=== PATIENT | male | born 1945 | race Hispanic/Latino ===

== ENCOUNTER 2016-08-28 01:46 | Inpatient (IN) | payer OTHER, MEDICAID ==
[2016-08-28] MEDS ORDERED: Piperacillin/Tazobact 3.375 gm 100 ML IV STA (03:17)
[2016-08-28] MEDS ORDERED: Morphine 4 MG/ML VIAL IV ONE (03:19)
--- NOTE | 2016-08-28 03:20 | C.PDOC ---
History Of Present Illness 71 year old patient presents to the ED complaining of a chronic ulcer to the right ankle for the past few years. Patient now complains of pain, foul odor and drainage to the area. He denies fever. He did not follow up with his PMD. ( Kierra Reyes) History Per: Patient History/Exam Limitations: no limitations Onset/Duration Of Symptoms: Other (few years) Current Symptoms Are (Timing): Still Present Quality Of Symptoms: Painful, Draining Severity: Mild Pain Scale Rating Of: 3 Recent travel outside of the [place]: No Time Seen by Provider: 08/28/16 03:10 Chief Complaint (Nursing): Abnormal Skin Integrity Past Medical History Reviewed: Historical Data, Nursing Documentation, Vital Signs - Medical History PMH: HTN, Hypercholesterolemia Surgical History: Coronary Stent Family History: States: Unknown Family Hx - Social History Hx Tobacco Use: Yes Hx Alcohol Use: No (former) Hx Substance Use: No - Immunization History Hx Tetanus Toxoid Vaccination: No Hx Influenza Vaccination: No Hx Pneumococcal Vaccination: No Vital Signs: Last Vital Signs Temp 97.6 F 08/28/16 01:56 Pulse 84 08/28/16 04:30 Resp 14 08/28/16 04:30 BP 120/70 08/28/16 04:30 Pulse Ox 97 08/28/16 05:21 - [facility] Procedures CENTRAL VENOUS CATHETER PLACEMENT WITH GUIDANCE (10/04/14) CORONAR ARTERIOGR-2 CATH (05/28/12) INSERTION OF ONE VASCULAR STENT (08/05/12) INSERTION OF TWO VASCULAR STENTS (05/28/12) INSRT OF DRUG-ELUTING CORON ARTERY STENTS(S) (08/05/12) LEFT HEART CARDIAC CATH (05/28/12) PERCUTANEOUS TRANSLUMINAL CORONARY ANGIOPLASTY [PTCA] (08/05/12) PROCEDURE ON SINGLE VESSEL (08/05/12) PROCEDURE ON TWO VESSELS (05/28/12) Review Of Systems Except As Marked, All Systems Reviewed And Found Negative. Constitutional: Negative for: Fever Skin: Positive for: Other (ulcer to the right ankle) Physical Exam - Physical Exam Appears: Non-toxic, No Acute Distress Skin: Warm, Dry Head: Atraumatic, Normacephalic Eye(s): bilateral: PERRL, EOMI Chest: Symmetrical Cardiovascular: Rhythm Regular Respiratory: Normal Breath Sounds, No Rales, No Rhonchi, No Wheezing Extremity: Normal ROM, No Pedal Edema, No Calf Tenderness, Capillary Refill (<2 seconds), No Deformity, Other (large, infected, purulent ulcer to the right medial malleolus with foul odor; pedal pulse diminished on the right (+)mild erythema to the distal and proximal aspects of the wound (+)warmth) Neurological/Psych: Oriented x3, Normal Motor, Normal Sensation ED Course And Treatment - Laboratory Results Result Diagrams: 08/28/16 03:41 08/28/16 03:41 O2 Sat by Pulse Oximetry: 97 (RA) Pulse Ox Interpretation: Normal - Other Rad Right ankle XR X-Ray: Interpreted by Me, Viewed By Me Interpretation: No Osteomyelitis Progress Note: Plan: -Labs. -Morphine, Vancomycin, Zosyn. -Wound culture. - Right ankle x-ray. -Reassess and disposition Disposition - Disposition Disposition Time: 05:00 - Disposition Disposition: HOSPITALIZED Condition: STABLE - Clinical Impression Clinical Impression: Infected ulcer of skin, Diabetes mellitus with ulcer of ankle, Anemia - PA / [employer] / Resident Statement MD/DO has reviewed & agrees with the documentation as recorded. - Scribe Statement The provider has reviewed the documentation as recorded by the Scribe - Scribe Statement Mehnaz Ramírez All medical record entries made by the Scribe were at my direction and personally dictated by me. I have reviewed the chart and agree that the record accurately reflects my personal performance of the history, physical exam, medical decision making, and the department course for this patient. I have also personally directed, reviewed, and agree with the discharge instructions and disposition. (Kierra Reyes)
[2016-08-28 03:44] LABS: BASO % 0.3 % (0.0-2.0); EOS % 0.7 % (0.0-4.0); HEMATOCRIT 23.5 % (35.0-51.0); LYMPH # 1.4 K/uL (1.0-4.3); LYMPH % 26.4 % (20.0-40.0); MEAN CELL VOLUME 73.4 fL (80.0-94.0); MEAN CORPUSCULAR HEMOGLOBIN 23.9 pg (27.0-31.0); MEAN CORPUSCULAR HGB CONC 32.6 g/dL (33.0-37.0); MEAN PLATELET VOLUME 8.9 fL (7.2-11.7); MONO # 0.9 K/uL (0.0-0.8); MONO % 16.6 % (0.0-10.0); WHITE BLOOD COUNT 5.2 K/uL (4.8-10.8)
[2016-08-28 03:54] LABS: CHLORIDE 99 mmol/L (98-107)
[2016-08-28 03:55] LABS: POTASSIUM 4.5 mmol/L (3.6-5.2); SODIUM 135 mmol/L (132-148)
[2016-08-28 03:57] LABS: GFR AFRICAN-AMERICAN > 60
[2016-08-28 03:58] LABS: ALB/GLOB RATIO 0.8 (1.0-2.1); ALKALINE PHOSPHATASE 120 U/L (38-126); ALT/SGPT 19 U/L (21-72); AST/SGOT 15 U/L (17-59); BILIRUBIN,TOTAL 0.3 mg/dL (0.2-1.3); BLOOD UREA NITROGEN 16 mg/dL (9-20); CALCIUM 9.3 mg/dl (8.6-10.4); CARBON DIOXIDE 21 mmol/L (22-30); TOTAL PROTEIN 7.3 g/dL (6.3-8.3)
[2016-08-28 04:12] LABS: GLUCOSE,RANDOM 414 mg/dL (75-110)
[2016-08-28] MEDS ORDERED: (Novolin R) Insulin Human Regular 100 units/ml vial IV STA (04:17)
[2016-08-28] MEDS ORDERED: Sodium Chloride 0.9% 1,000 ML IV STA ×2 (04:18→08:05)
[2016-08-28] MEDS ORDERED: (Novolin R) Insulin Human Regular 100 units/ml vial ONE (04:24)
--- NOTE | 2016-08-28 10:00 | RAD ---
PROCEDURE: Right Ankle Radiographs. HISTORY: infected wound COMPARISON: 10/05/2014 and bilateral ankle study FINDINGS: BONES: There is interval increased osseous hypertrophic changes at the tibiotalar articulation on the lateral view and an oblique lucency with faint sclerotic margins projecting over the distal fibula ; this is not significantly changed since the prior exa. A remote nondisplaced incomplete fracture here with incomplete healing here is 1 consideration. Projectional artifact is another. The smooth medial distal tibial metaphyseal to epiphyseal re- osteal reaction is similar to the prior exam is findings are subjacent to a large soft tissue ulcer now. A soft tissue ulceration appears more extensive than previously. Chronic venous insufficiency (given the bilaterality) and smooth margins is 1 consideration. A element of chronic sub periosteal osteo is not excluded there is faint ill definition to some of this inferior smooth periosteal reaction/cortex on the current study regional local osteomyelitis here cannot be excluded. The inferior and posterior calcaneal spurs are as before JOINTS: Mild osteoarthritis. Ankle mortise maintained. Talar dome intact SOFT TISSUES: Soft tissue ulceration OTHER FINDINGS: None. IMPRESSION: Medial ankle ulcer - the ulcer appears more extensive. The prior smooth medial distal tibial periosteal reaction (which is noted bilaterally) and consistent part with chronic venous insufficiency does appear more focally demineralized contiguous with this ulcer . A contiguous right osteomyelitis as a result is a consideration and cannot be exclude .Consider MRI for further evaluation
--- NOTE | 2016-08-28 11:10 | CP.PCM.CON ---
History of Present Illness - History of Present Illness History of Present Illness: 71 year old patient presents to the ED complaining of a chronic ulcer to the right ankle for the past few years. Patient now complains of pain, foul odor and drainage to the area. He denies fever. Past Patient History - Tetanus Immunizations Tetanus Immunization: Unknown - Past Social History Smoking Status: Heavy Smoker > 10 Cigarettes Daily - CARDIAC Hx Hypercholesterolemia: Yes Hx Hypertension: Yes - PULMONARY Hx Respiratory Disorders: No - NEUROLOGICAL Hx Paralysis: No - HEENT Hx HEENT Problems: No - RENAL Hx Chronic Kidney Disease: No - ENDOCRINE/METABOLIC Hx Endocrine Disorders: No - HEMATOLOGICAL/ONCOLOGICAL Hx Blood Transfusions: No Hx Blood Transfusion Reaction: No - INTEGUMENTARY Hx Dermatological Problems: Yes Hx Cellulitis: Yes - MUSCULOSKELETAL/RHEUMATOLOGICAL Hx Musculoskeletal Disorders: No Hx Falls: No - GASTROINTESTINAL Hx Gastrointestinal Disorders: No - GENITOURINARY/GYNECOLOGICAL Hx Genitourinary Disorders: No - PSYCHIATRIC Hx Substance Use: No - SURGICAL HISTORY Hx Coronary Stent: Yes - ANESTHESIA Hx Anesthesia Reactions: No Hx Malignant Hyperthermia: No Meds Allergies/Adverse Reactions: Allergies Allergy/AdvReac Type Severity Reaction Status Date / Time No Known Allergies Allergy Unverified 05/03/15 14:16 - Medications Medications: Current Medications Sodium Chloride (Sodium Chloride 0.9%) 1,000 mls @ 80 mls/hr IV .[id number] STA Stop: 08/28/16 16:47 Last Admin: 08/28/16 09:43 Dose: 80 mls/hr Insulin Human Regular (Novolin R) 0 unit SC ACHS [facility] PRN Reason: Protocol Results - Vital Signs Recent Vital Signs: Last Vital Signs Temp 97.6 F 08/28/16 01:56 Pulse 84 08/28/16 04:30 Resp 14 08/28/16 04:30 BP 120/70 08/28/16 04:30 Pulse Ox 97 08/28/16 06:47 - Labs Result Diagrams: 08/28/16 03:41 08/28/16 03:41 Labs: Laboratory Results - last 24 hr 08/28/16 08/28/16 05:57 06:41 POC Glucose (mg/dL) 259 H Blood Type A POSITIVE Antibody Screen Negative
--- NOTE | 2016-08-28 11:12 | CP.PCM.HP ---
History of Present Illness - History of Present Illness History of Present Illness: 71-year-old patient presented to the ED complaining of a chronic ulcer to the right ankle for the past few years. Patient now complains of pain, foul odor and drainage to the area. He denies fever. He did not follow-up with his primary physician. Present on Admission - Present on Admission Any Indicators Present on Admission: No Past Patient History - Tetanus Immunizations Tetanus Immunization: Unknown - Past Social History Smoking Status: Heavy Smoker > 10 Cigarettes Daily - CARDIAC Hx Hypercholesterolemia: Yes Hx Hypertension: Yes - PULMONARY Hx Respiratory Disorders: No - NEUROLOGICAL Hx Paralysis: No - HEENT Hx HEENT Problems: No - RENAL Hx Chronic Kidney Disease: No - ENDOCRINE/METABOLIC Hx Endocrine Disorders: No - HEMATOLOGICAL/ONCOLOGICAL Hx Blood Transfusions: No Hx Blood Transfusion Reaction: No - INTEGUMENTARY Hx Dermatological Problems: Yes Hx Cellulitis: Yes - MUSCULOSKELETAL/RHEUMATOLOGICAL Hx Musculoskeletal Disorders: No Hx Falls: No - GASTROINTESTINAL Hx Gastrointestinal Disorders: No - GENITOURINARY/GYNECOLOGICAL Hx Genitourinary Disorders: No - PSYCHIATRIC Hx Substance Use: No - SURGICAL HISTORY Hx Coronary Stent: Yes - ANESTHESIA Hx Anesthesia Reactions: No Hx Malignant Hyperthermia: No Meds Home Medications: Home Medication List Medication Instructions Recorded Confirmed Type Thiamine [Vitamin B1 Tab] 100 mg PO DAILY tab 09/12/16 Rx Allergies/Adverse Reactions: Allergies Allergy/AdvReac Type Severity Reaction Status Date / Time No Known Allergies Allergy Verified 09/16/16 20:22 Physical Exam - Constitutional Appears: Well - Head Exam Head Exam: ATRAUMATIC, NORMAL INSPECTION, NORMOCEPHALIC - Eye Exam Eye Exam: EOMI, Normal appearance, PERRL Pupil Exam: NORMAL ACCOMODATION, PERRL - ENT Exam ENT Exam: Mucous Membranes Moist, Normal Exam - Neck Exam Neck exam: Positive for: Normal Inspection - Respiratory Exam Respiratory Exam: Decreased Breath Sounds - Cardiovascular Exam Cardiovascular Exam: REGULAR RHYTHM, +S1, +S2 - GI/Abdominal Exam GI & Abdominal Exam: Diminished Bowel Sounds, Soft - Rectal Exam Rectal Exam: Deferred Results - Vital Signs Recent Vital Signs: Last Vital Signs Temp 97.6 F 08/28/16 01:56 Pulse 84 08/28/16 04:30 Resp 14 08/28/16 04:30 BP 120/70 08/28/16 04:30 Pulse Ox 97 08/28/16 06:47 - Labs Result Diagrams: 09/13/16 07:15 09/13/16 07:15 Labs: Laboratory Results - last 24 hr 08/28/16 08/28/16 05:57 06:41 POC Glucose (mg/dL) 259 H Blood Type A POSITIVE Antibody Screen Negative Assessment & Plan (1) Anemia Status: Acute (2) Chest pain Status: Acute (3) Diabetes mellitus with ulcer of ankle Status: Acute (4) Diabetes mellitus, new onset Status: Acute (5) Gastrointestinal hemorrhage Status: Acute (6) Infected ulcer of skin Status: Acute (7) PAD (peripheral artery disease) Status: Acute (8) Pancytopenia Status: Acute (9) Pneumonia Status: Acute (10) Prophylactic measure Status: Acute (11) CAD (coronary artery disease) Status: Chronic (12) Diabetes mellitus Status: Chronic - Assessment and Plan (Free Text) Plan: Consult ID Consult cardiology Consult cardiology S/P to [facility] Wound care Recommend MRI IV fluids Pipercillin sod/tazobactam
[2016-08-28] MEDS ORDERED: (Novolin R) Insulin Human Regular 100 units/ml vial SC SCH (11:30)
[2016-08-28 11:32] LABS: BASO % 0.4 % (0.0-2.0); EOS % 1.3 % (0.0-4.0); HEMATOCRIT 20.1 % (35.0-51.0); LYMPH # 0.8 K/uL (1.0-4.3); LYMPH % 21.1 % (20.0-40.0); MEAN CELL VOLUME 73.1 fL (80.0-94.0); MEAN CORPUSCULAR HEMOGLOBIN 24.5 pg (27.0-31.0); MEAN CORPUSCULAR HGB CONC 33.4 g/dL (33.0-37.0); MONO # 0.8 K/uL (0.0-0.8); MONO % 20.8 % (0.0-10.0); NRBC % 0.1 % (0.0-2.0); PLATELET COUNT 134 K/uL (130-400); RED CELL DISTRIBUTION WIDTH 19.9 % (11.5-14.5); WHITE BLOOD COUNT 3.9 K/uL (4.8-10.8)
[2016-08-28 11:58] LABS: NEUTROPHIL 56 % (50-75); TOTAL CELLS COUNTED 100
[2016-08-28] MEDS: Piperacillin/Tazobact 3.375 GM in Sodium Chloride 100 ML IVPB SCH ×2 (13:45→18:52)
[2016-08-28 14:16] LABS: IRON 28 ug/dL (49-181)
--- NOTE | 2016-08-28 14:26 | CP.PCM.PN ---
Subjective - Date & Time of Evaluation Date of Evaluation: 08/28/16 Time of Evaluation: 08:45 - Subjective Subjective: Medicine Progress Note- Dr. Ramírez's service: 71 year old male with PMHx of diabetes, large infected foot ulcer, CAD s/p PCI with stents admitted overnight for purulent non healing foot ulcer. Patient seen and examined at bedside this AM. Patient reports he is tired. He had one episode of chest pain this AM that only lasted for a few minutes. He reports last time he had chest pain like this was years ago. Patient with history of [place] 3 years ago. Patient denies SOB, fevers, chills, numbness, tingling, palpitations, headaches, dizziness. Objective - Vital Signs/Intake and Output Vital Signs (last 24 hours): Temp Pulse Resp BP Pulse Ox 97.6 F 84 14 120/70 97 08/28/16 01:56 08/28/16 04:30 08/28/16 04:30 08/28/16 04:30 08/28/16 06:47 - Medications Medications: Current Medications Sodium Chloride (Sodium Chloride 0.9%) 1,000 mls @ 80 mls/hr IV .[id number] STA Stop: 08/28/16 16:47 Last Admin: 08/28/16 09:43 Dose: 80 mls/hr Piperacillin Sod/Tazobactam (Sod 3.375 gm/ Sodium Chloride) 100 mls @ 200 mls/ hr IVPB Q6H [facility] Last Admin: 08/28/16 13:45 Dose: 200 mls/hr Insulin Human Regular (Novolin R) 0 unit SC ACHS [facility] PRN Reason: Protocol Last Admin: 08/28/16 13:25 Dose: 8 unit - Labs Labs: 08/28/16 11:22 - Constitutional Appears: No Acute Distress, Cachectic, Chronically Ill - Head Exam Head Exam: NORMAL INSPECTION, NORMOCEPHALIC - Eye Exam Eye Exam: EOMI, Normal appearance - ENT Exam ENT Exam: Mucous Membranes Moist - Neck Exam Neck Exam: Full ROM, Normal Inspection - Respiratory Exam Respiratory Exam: Clear to Ausculation Bilateral, NORMAL BREATHING PATTERN - Cardiovascular Exam Cardiovascular Exam: REGULAR RHYTHM, +S1, +S2 - GI/Abdominal Exam GI & Abdominal Exam: Soft, Normal Bowel Sounds. absent: Distended, Tenderness - Extremities Exam Extremities Exam: absent: Pedal Edema Additional comments: Large purulent 3-4 inch diameter ulcer over the right medial malleolus with foul odor, green/tyler discharge. - Neurological Exam Neurological Exam: Alert, Awake, Oriented x3 - Psychiatric Exam Psychiatric exam: Normal Affect, Normal Mood - Skin Skin Exam: Dry, Pallor, Warm Assessment and Plan (1) Anemia Assessment & Plan: Hgb down from 7.7 this AM to 6.7 this afternoon. Microcytic. Patient is pale and symptomatic. Will transfuse 2 units of PRBC Monitor on Tele f/u CBC in the AM f/u FOBT f/u Iron studies GI consult placed- Dr. Mosqueda- help appreciated. * As per GI. Patient to have EGD/colonoscopy for further evaluation of worsening iron deficiency anemia, particularly given heavy cigarette smoking history in order to rule out underlying malignancy. Will tentatively plan for . * Patient started on Iron supplementation as recommended by GI. Ferrlecit 125 mg IVPB daily. Status: Acute (2) Chest pain Assessment & Plan: HEATH: 0.0210 this AM EKG NSR [address] changes. f/u HEATH in 6 hours Cardio consult placed- Dr. Apple- help appreciated. Hold Plavix, ASA for possible blood loss. Continue statin. Status: Acute (3) Infected ulcer of skin Assessment & Plan: ID consult placed- Dr. Bishop- help appreciated. Zosyn IVPB NSS at 80 cc/hr Discussed with wound care. certified welder Ugo to see patient and make recommendations. Status: Acute (4) CAD (coronary artery disease) Assessment & Plan: Pt has had two coronary stents placed at [facility] in 2012. Pt says that he had an [place] at that time. Patient placed on Plavix, ASA and Statin last admission in 2014. Hold Plavix, ASA for possible blood loss. Continue statin Status: Acute (5) Diabetes mellitus Assessment & Plan: Hgb A1C 10.0 Insulin Sliding Scale Start Lantus 10 units HS Status: Acute (6) PAD (peripheral artery disease) Assessment & Plan: Patient placed on Plavix, ASA and Statin last admission in 2014. Hold Plavix, ASA for possible blood loss. Status: Acute (7) Prophylactic measure Assessment & Plan: Hold chemical anticoagulation for anemia, and possible blood loss Pepcid 20 mg PO BID NO SCDs as patient has PVD and ulcer over R malleolus. Status: Acute - Assessment and Plan (Free Text) Assessment: All management as per Dr. Monalisa Ramírez.
--- NOTE | 2016-08-28 15:05 | CP.PCM.CON ---
<Abdiaziz Adams - Last Filed: 08/28/16 15:21> History of Present Illness - History of Present Illness History of Present Illness: PGY4 GI Fellow Consult Note Patient is a 71yo male with PMHx significant for CAD s/p PCI with 2 stents placed, HTN, DM, diabetic foot ulcers/venous stasis ulcers, tobacco and distant alcohol abuse who presented to the ED complaining of a non-healing right foot wound. The patient states that he has suffered with many leg/foot wounds in the past and that this particular wound developed approximately one month prior to admission. He noticed a foul smell and some purulence for which he came to the ED for further evaluation. Our service has been consulted for new onset anemia. Our most recent lab work prior to this admission is from September of 2014 which reveal an unremarkable CBC. At time of admission, HGB was 7.7 and has dropped to 6.7 with ongoing therapies (IVF, antibiotics). He denies any dyspnea, dizziness, lightheadedness, hematochezia, melena, hematemesis, hematuria, hemoptysis, weight loss, dyspepsia, abdominal pain. Does admit to noticing his skin is more pale but cannot identify a time frame when this began. PMHx: See HPI PSHx: PCI with 2 stents placed FHx: Discussed family history with patient and he denies any pertinent family history Social: Current 1/2ppd smoker (previously 3ppd), former EtOH abuse with daily use until age 50, no illicit drug use Endo: No prior endoscopic evaluations Review of Systems - Constitutional Constitutional: absent: Anorexia, Chills, Fatigue, Fever, Malaise - EENT Eyes: absent: Change in Vision Nose/Mouth/Throat: absent: Sore Throat - Cardiovascular Cardiovascular: absent: Claudication, Dyspnea, Leg Edema - Respiratory Respiratory: absent: Cough, Dyspnea, Excessive Mucous Production - Gastrointestinal Gastrointestinal: Constipation. absent: Abdominal Pain, Bloating, Change in Stool Character, Cramping, Diarrhea, Dyspepsia, Dysphagia, Hematemesis, Hematochezia, Melena, Nausea, Odynophagia, Temesmus, Vomiting - Genitourinary Genitourinary: absent: Dysuria, Hematuria, Urinary Frequency, Urinary Urgency - Musculoskeletal Musculoskeletal: absent: Back Pain, Neck Pain - Integumentary Integumentary: Wounds. absent: New Lesions, Rash - Neurological Neurological: absent: Dizziness, Numbness, Focal Weakness - Psychiatric Psychiatric: absent: Anxiety, Depression - Endocrine Endocrine: absent: Polydipsia, Polyphagia, Polyuria - Hematologic/Lymphatic Hematologic: absent: Easy Bleeding, Easy Bruising, Lymphadenopathy Past Patient History - Tetanus Immunizations Tetanus Immunization: Unknown - Past Medical History & Family History Past Medical History?: No - Past Social History Smoking Status: Former Smoker - CARDIAC Hx Heart Attack: Yes Hx Hypercholesterolemia: Yes Hx Hypertension: Yes Other/Comment: stent placement - PULMONARY Hx Respiratory Disorders: No - NEUROLOGICAL Hx Paralysis: No - HEENT Hx HEENT Problems: No - RENAL Hx Chronic Kidney Disease: Yes Hx Kidney Stones: Yes - ENDOCRINE/METABOLIC Hx Endocrine Disorders: Yes Hx Diabetes Mellitus Type 2: Yes - HEMATOLOGICAL/ONCOLOGICAL Hx Anemia: Yes Hx Blood Transfusions: No Hx Blood Transfusion Reaction: No - INTEGUMENTARY Hx Dermatological Problems: Yes Hx Cellulitis: Yes - MUSCULOSKELETAL/RHEUMATOLOGICAL Hx Musculoskeletal Disorders: Yes Hx Back Pain: Yes Hx Falls: Yes Hx Spinal Stenosis: Yes - GASTROINTESTINAL Hx Gastrointestinal Disorders: No - GENITOURINARY/GYNECOLOGICAL Hx Genitourinary Disorders: No Hx Prostate Problems: Yes - PSYCHIATRIC Hx Substance Use: No - SURGICAL HISTORY Hx Coronary Stent: Yes - ANESTHESIA Hx Anesthesia: Yes Hx Anesthesia Reactions: No Hx Malignant Hyperthermia: No Meds Allergies/Adverse Reactions: Allergies Allergy/AdvReac Type Severity Reaction Status Date / Time No Known Allergies Allergy Unverified 05/03/15 14:16 - Medications Medications: Current Medications Sodium Chloride (Sodium Chloride 0.9%) 1,000 mls @ 80 mls/hr IV .[id number] STA Stop: 08/28/16 16:47 Last Admin: 08/28/16 09:43 Dose: 80 mls/hr Piperacillin Sod/Tazobactam (Sod 3.375 gm/ Sodium Chloride) 100 mls @ 200 mls/ hr IVPB Q6H [facility] Last Admin: 08/28/16 13:45 Dose: 200 mls/hr Insulin Human Regular (Novolin R) 0 unit SC ACHS [facility] PRN Reason: Protocol Physical Exam - Constitutional Appears: Non-toxic, No Acute Distress - Eye Exam Eye Exam: EOMI, PERRL - ENT Exam ENT Exam: Mucous Membranes Dry - Respiratory Exam Respiratory Exam: Clear to Auscultation Bilateral. absent: Rales, Rhonchi, Wheezes - Cardiovascular Exam Cardiovascular Exam: RRR, +S1, +S2 - GI/Abdominal Exam GI & Abdominal Exam: Normal Bowel Sounds, Soft. absent: Distended, Firm, Guarding, Organomegaly, Rigid, Tenderness - Extremities Exam Additional comments: B/L discoloration with open draining wound on the right medial malleolus - Neurological Exam Neurological exam: Alert, Oriented x3 - Psychiatric Exam Psychiatric exam: Normal Affect, Normal Mood - Skin Skin Exam: Dry, Pallor, Warm Results - Vital Signs Recent Vital Signs: Last Vital Signs Temp 97.6 F 08/28/16 01:56 Pulse 84 08/28/16 04:30 Resp 14 08/28/16 04:30 BP 120/70 08/28/16 04:30 Pulse Ox 97 08/28/16 06:47 - Labs Result Diagrams: 08/28/16 11:22 08/28/16 03:41 Labs: Laboratory Results - last 24 hr 08/28/16 08/28/16 08/28/16 05:57 06:41 11:22 WBC 3.9 L RBC 2.75 L Hgb 6.7 L Hct 20.1 L MCV 73.1 L MCH 24.5 L MCHC 33.4 RDW 19.9 H Plt Count 134 MPV 9.0 Neut % (Auto) 56.4 Lymph % (Auto) 21.1 [place] % (Auto) 20.8 H Eos % (Auto) 1.3 Baso % (Auto) 0.4 Neut # 2.2 Lymph # 0.8 L [place] # 0.8 Eos # 0.0 Baso # 0.0 Neutrophils % (Manual) 56 Band Neutrophils % 5 H Lymphocytes % (Manual) 22 Monocytes % (Manual) 17 H Platelet Estimate Normal Polychromasia Slight Hypochromasia (manual) Slight Anisocytosis (manual) Slight Microcytosis (manual) Moderate Ovalocytes Slight POC Glucose (mg/dL) 259 H Hemoglobin A1c 10.0 H Iron TIBC % Saturation Transferrin 162.55 L Ferritin 159.0 Total Creatine Kinase < 20 L CK-MB (Mass) 0.42 Troponin I, Quant 0.0210 Blood Type A POSITIVE Antibody Screen Negative 08/28/16 08/28/16 11:57 13:53 WBC RBC Hgb Hct MCV MCH MCHC RDW Plt Count MPV Neut % (Auto) Lymph % (Auto) [place] % (Auto) Eos % (Auto) Baso % (Auto) Neut # Lymph # [place] # Eos # Baso # Neutrophils % (Manual) Band Neutrophils % Lymphocytes % (Manual) Monocytes % (Manual) Platelet Estimate Polychromasia Hypochromasia (manual) Anisocytosis (manual) Microcytosis (manual) Ovalocytes POC Glucose (mg/dL) 396 H Hemoglobin A1c Iron 28 L TIBC 245 L % Saturation 11 L Transferrin Ferritin Total Creatine Kinase CK-MB (Mass) Troponin I, Quant Blood Type Antibody Screen Assessment & Plan - Assessment and Plan (Free Text) Assessment: Patient is a 71yo male with PMHx significant for CAD s/p PCI with 2 stents placed, HTN, DM, diabetic foot ulcers/venous stasis ulcers, tobacco and distant alcohol abuse who presented to the ED complaining of a non-healing right foot wound -Microcytic iron deficient anemia -Lower extremity ulceration -CAD, suspect PAD -HTN -DM -Constipation Plan: -Noted drop in HGB from 2014 to today -Transfuse as needed given prior CAD -There is no evidence of acute GI hemorrhage -ASA and plavix currently held by primary service - 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 if patient still on these meds -Patient would benefit from EGD/colonoscopy given microcytic anemia and no prior screening; plan for if patient agreeable; clear liquid diet now -Consider iron supplementation -IV antibiotics per primary service -Miralax 17g PO QD -The patient does not require PPI or H2 sorin at this time -Consider HCV screening as patient is a baby boomer - Date & Time Date: 08/28/16 Time: 15:18 <Solitario Mosqueda - Last Filed: 08/28/16 15:38> Meds - Medications Medications: Current Medications Home Med (Atorvastatin [Lipitor]) 40 mg PO DAILY [facility] Sodium Chloride (Sodium Chloride 0.9%) 1,000 mls @ 80 mls/hr IV .[id number] STA Stop: 08/28/16 16:47 Last Admin: 08/28/16 09:43 Dose: 80 mls/hr Piperacillin Sod/Tazobactam (Sod 3.375 gm/ Sodium Chloride) 100 mls @ 200 mls/ hr IVPB Q6H [facility] Last Admin: 08/28/16 13:45 Dose: 200 mls/hr Insulin Human Regular (Novolin R) 0 unit SC ACHS [facility] PRN Reason: Protocol Results - Vital Signs Recent Vital Signs: Last Vital Signs Temp 97.6 F 08/28/16 01:56 Pulse 84 08/28/16 04:30 Resp 14 08/28/16 04:30 BP 120/70 08/28/16 04:30 Pulse Ox 97 08/28/16 06:47 - Labs Result Diagrams: 08/28/16 11:22 08/28/16 03:41 Labs: Laboratory Results - last 24 hr 08/28/16 08/28/16 08/28/16 05:57 06:41 11:22 WBC 3.9 L RBC 2.75 L Hgb 6.7 L Hct 20.1 L MCV 73.1 L MCH 24.5 L MCHC 33.4 RDW 19.9 H Plt Count 134 MPV 9.0 Neut % (Auto) 56.4 Lymph % (Auto) 21.1 [place] % (Auto) 20.8 H Eos % (Auto) 1.3 Baso % (Auto) 0.4 Neut # 2.2 Lymph # 0.8 L [place] # 0.8 Eos # 0.0 Baso # 0.0 Neutrophils % (Manual) 56 Band Neutrophils % 5 H Lymphocytes % (Manual) 22 Monocytes % (Manual) 17 H Platelet Estimate Normal Polychromasia Slight Hypochromasia (manual) Slight Anisocytosis (manual) Slight Microcytosis (manual) Moderate Ovalocytes Slight POC Glucose (mg/dL) 259 H Hemoglobin A1c 10.0 H Iron TIBC % Saturation Transferrin 162.55 L Ferritin 159.0 Total Creatine Kinase < 20 L CK-MB (Mass) 0.42 Troponin I, Quant 0.0210 Blood Type A POSITIVE Antibody Screen Negative 08/28/16 08/28/16 11:57 13:53 WBC RBC Hgb Hct MCV MCH MCHC RDW Plt Count MPV Neut % (Auto) Lymph % (Auto) [place] % (Auto) Eos % (Auto) Baso % (Auto) Neut # Lymph # [place] # Eos # Baso # Neutrophils % (Manual) Band Neutrophils % Lymphocytes % (Manual) Monocytes % (Manual) Platelet Estimate Polychromasia Hypochromasia (manual) Anisocytosis (manual) Microcytosis (manual) Ovalocytes POC Glucose (mg/dL) 396 H Hemoglobin A1c Iron 28 L TIBC 245 L % Saturation 11 L Transferrin Ferritin Total Creatine Kinase CK-MB (Mass) Troponin I, Quant Blood Type Antibody Screen Attending/Attestation - Attestation I have personally seen and examined this patient.: Yes I have fully participated in the care of the patient.: Yes I have reviewed all pertinent clinical information: Yes Notes (Text): 08/28/16 15:27 Patient seen and examined with GI fellow. Agree with above documentation with the following additions. In brief, this is a 71 year old male with history of HTN, DM, CAD s/p stent in 2012 who presented to hospital with complaint of non- healing right foot wound which has been deteriorating over the past one month. GI called for evaluation of iron deficiency anemia. He currently denies any abdominal pain, nausea, vomiting, diarrhea, fever/chills, weight loss, rectal bleeding, hematemesis. He does admit to mild fatigue and progressive pallor but otherwise his main complaint is related to the lower extremity wound. No prior endoscopic evaluation. HTN DM, lower extremity ulcer CAD s/p stent Iron deficiency anemia, acutely worsening microcytic anemia posing threat to patient life given underlying cardiac disease - Patient scheduled to receive 2 units PRBC transfusion, continue to monitor H/H - Obtain stool occult blood - Clear liquid diet as tolerated - Continue with antibiotic therapy as per ID - Suggest iron supplementation therapy - Patient would benefit from EGD/colonoscopy for further evaluation of worsening iron deficiency anemia, particularly given heavy cigarette smoking history in order to rule out underlying malignancy. Will tentatively plan for pending patient clinical progress.
--- NOTE | 2016-08-28 17:18 | CP.PCM.CON ---
<Shelton Garcia - Last Filed: 08/28/16 17:01> History of Present Illness - History of Present Illness History of Present Illness: Cardiology Consultation Note Dr. Apple CC: Chest Pain HPI: This is a 71 year old male with a PMG notable for COPD, CAD (s/p PCI with 2 stents 5 years ago), venous stasis dermatitis with ulcer, HTN, uncontrolled DM , diabetic foot ulcers, and tobacco abuse presenting for cardiac evaluation of chest pain. The patient reports that the chest pain occurred this morning and has since resolved. The patient notes that the pain was leftsided and felt like "gas pain." The patient states that the pain lasted 15-30mins. The patient notes that he has this pain frequently, but has not sought medical advice for the occurrences. The patient notes that he had PCI with stenting 5 years ago and was placed on aspirin, plavix, and a statin which he reports compliance. The patient's first PCI was 05/28/[address] De (at [facility]) a 3.0 x 12 TOVA was placed in the proximal left circumflex. The second PCI was , again with Dr. De. The second stent was a 3.0 x 18 TOVA placed in the proximal RCA. The patient had a negative stress test prior to his second PCI on 07/17/12. The patient notes that he becomes dyspneic shortly after initiating ambulation. The patient notes that he has no issues with SOB while performing his ADLs/IADLs. The patient denies any syncopal episodes in the past , and he has never had an echocardiogram done. Presently the patient denies all cardiopulmonary complaints. Presently, the patient denies fever, chills, headache, chest pain, palpitations, SOB, cough, abdominal pain, N/V/D/C, changes in bowel/bladder habits, and extremity paresthesias. PMH: COPD, CAD (s/p PCI with 2 stents 5 years ago), venous stasis dermatitis with ulcer, HTN, uncontrolled DM, diabetic foot ulcers, and tobacco abuse Social: 1ppd smoking x 61 years, heave alcohol use (quit at age 45), denies all illicit drug use Surg: Stenting x 2 in 05/2012 and 07/2012 Allergy: NKDA Review of Systems - Constitutional Constitutional: absent: Chills, Fatigue, Fever - EENT Eyes: absent: Blind Spots, Blurred Vision, Change in Vision Nose/Mouth/Throat: absent: Nose Pain, Facial Pain, Neck Pain - Cardiovascular Cardiovascular: Chest Pain (resolved), Chest Pain at Rest (resolved), Dyspnea on Exertion, Leg Ulcers. absent: Claudication, Pain Radiating to Arm/Neck/Jaw, Leg Edema, Lightheadedness, Orthopnea, Paroxysmal Nocturnal Dyspnea, Rapid Heart Rate, Syncope - Respiratory Respiratory: absent: Cough, Dyspnea, Dyspnea on Exertion - Gastrointestinal Gastrointestinal: absent: Abdominal Pain, Constipation, Diarrhea, Nausea, Vomiting - Genitourinary Genitourinary: absent: Change in Urinary Stream, Difficulty Urinating, Urinary Frequency, Urinary Urgency - Musculoskeletal Musculoskeletal: absent: Arthralgias, Stiffness, Tingling - Integumentary Integumentary: Skin Ulcer (LLE). absent: Rash, Swelling, Unusual Bruising - Neurological Neurological: absent: Sensory Deficit, Syncope, Tingling, Tremor, Vertigo, Weakness - Endocrine Endocrine: absent: Cold Intolorance, Heat Intolorance, Polydipsia, Polyphagia Past Patient History - Tetanus Immunizations Tetanus Immunization: Unknown - Past Medical History & Family History Past Medical History?: No - Past Social History Smoking Status: Former Smoker - CARDIAC Hx Heart Attack: Yes Hx Hypercholesterolemia: Yes Hx Hypertension: Yes Other/Comment: stent placement - PULMONARY Hx Respiratory Disorders: No - NEUROLOGICAL Hx Paralysis: No - HEENT Hx HEENT Problems: No - RENAL Hx Chronic Kidney Disease: Yes Hx Kidney Stones: Yes - ENDOCRINE/METABOLIC Hx Endocrine Disorders: Yes Hx Diabetes Mellitus Type 2: Yes - HEMATOLOGICAL/ONCOLOGICAL Hx Anemia: Yes Hx Blood Transfusions: No Hx Blood Transfusion Reaction: No - INTEGUMENTARY Hx Dermatological Problems: Yes Hx Cellulitis: Yes - MUSCULOSKELETAL/RHEUMATOLOGICAL Hx Musculoskeletal Disorders: Yes Hx Back Pain: Yes Hx Falls: Yes Hx Spinal Stenosis: Yes - GASTROINTESTINAL Hx Gastrointestinal Disorders: No - GENITOURINARY/GYNECOLOGICAL Hx Genitourinary Disorders: No Hx Prostate Problems: Yes - PSYCHIATRIC Hx Substance Use: No - SURGICAL HISTORY Hx Coronary Stent: Yes - ANESTHESIA Hx Anesthesia: Yes Hx Anesthesia Reactions: No Hx Malignant Hyperthermia: No Meds Home Medications: Home Medication List Medication Instructions Recorded Confirmed Type Famotidine [Pepcid] 20 mg PO BID tab 09/12/16 Rx Folic Acid 1 mg PO DAILY tab 09/12/16 Rx Insulin Glargine, Recombina 10 unit SC HS unit 09/12/16 Rx [Lantus] Insulin Human Regular [Novolin R] 0 unit SC ACHS unit 09/12/16 Rx Isosorbide Mononitrate [Imdur] 30 mg PO DAILY tab 09/12/16 Rx Metoprolol Succinate XL [Toprol XL] 12.5 mg PO Q24H tab 09/12/16 Rx Ranolazine [Ranexa] [address] 09/12/16 Rx Thiamine [Vitamin B1 Tab] 100 mg PO DAILY tab 09/12/16 Rx Allergies/Adverse Reactions: Allergies Allergy/AdvReac Type Severity Reaction Status Date / Time No Known Allergies Allergy Verified 09/16/16 20:22 - Medications Medications: Current Medications Ferric Sodium Gluconate Complex (Ferrlecit) 125 mg IVPB DAILY [facility] Stop: 09/06/16 10:01 Piperacillin Sod/Tazobactam (Sod 3.375 gm/ Sodium Chloride) 100 mls @ 200 mls/ hr IVPB Q6H [facility] Last Admin: 08/28/16 13:45 Dose: 200 mls/hr Insulin Glargine (Lantus) 10 unit SC HS [facility] Insulin Human Regular (Novolin R) 0 unit SC ACHS [facility] PRN Reason: Protocol Rosuvastatin Calcium (Crestor) 20 mg PO HS [facility] Physical Exam - Constitutional Appears: No Acute Distress, Chronically Ill - Head Exam Head Exam: ATRAUMATIC, NORMAL INSPECTION, NORMOCEPHALIC - Eye Exam Eye Exam: EOMI, Normal appearance - ENT Exam ENT Exam: Mucous Membranes Dry - Neck Exam Neck exam: Positive for: Full Rom, Normal Inspection. Negative for: Lymphadenopathy, Tenderness - Respiratory Exam Respiratory Exam: Clear to Auscultation Bilateral, NORMAL BREATHING PATTERN. absent: Rhonchi, Wheezes, Respiratory Distress - Cardiovascular Exam Cardiovascular Exam: REGULAR RHYTHM, RRR, +S1, +S2. absent: Diastolic murmur, Systolic Murmur - GI/Abdominal Exam GI & Abdominal Exam: Normal Bowel Sounds, Soft. absent: Distended, Firm, Guarding, Tenderness - Extremities Exam Extremities exam: Positive for: pedal pulses present (diminished 1+/4). Negative for: normal inspection, pedal edema Additional comments: chronic venous stasis dermatitis changes B/L LLE: >5cm diameter ulcer on the medial maleolus. Dressing changed by wound care at bedside - Back Exam Back exam: NORMAL INSPECTION. absent: CVA tenderness (L), CVA tenderness (R) - Neurological Exam Neurological exam: Alert, CN II-XII Intact, Oriented x3 - Skin Skin Exam: Dry, Mottled, Warm Results - Vital Signs Recent Vital Signs: Last Vital Signs Temp 97.6 F 08/28/16 01:56 Pulse 84 08/28/16 04:30 Resp 14 08/28/16 04:30 BP 120/70 08/28/16 04:30 Pulse Ox 97 08/28/16 06:47 - Labs Result Diagrams: 08/28/16 11:22 08/28/16 03:41 Labs: Laboratory Results - last 24 hr 08/28/16 08/28/16 08/28/16 05:57 06:41 11:22 WBC 3.9 L RBC 2.75 L Hgb 6.7 L Hct 20.1 L MCV 73.1 L MCH 24.5 L MCHC 33.4 RDW 19.9 H Plt Count 134 MPV 9.0 Neut % (Auto) 56.4 Lymph % (Auto) 21.1 [place] % (Auto) 20.8 H Eos % (Auto) 1.3 Baso % (Auto) 0.4 Neut # 2.2 Lymph # 0.8 L [place] # 0.8 Eos # 0.0 Baso # 0.0 Neutrophils % (Manual) 56 Band Neutrophils % 5 H Lymphocytes % (Manual) 22 Monocytes % (Manual) 17 H Platelet Estimate Normal Polychromasia Slight Hypochromasia (manual) Slight Anisocytosis (manual) Slight Microcytosis (manual) Moderate Ovalocytes Slight POC Glucose (mg/dL) 259 H Hemoglobin A1c 10.0 H Iron TIBC % Saturation Transferrin 162.55 L Ferritin 159.0 Total Creatine Kinase < 20 L CK-MB (Mass) 0.42 Troponin I, Quant 0.0210 Blood Type A POSITIVE Antibody Screen Negative 08/28/16 08/28/16 11:57 13:53 WBC RBC Hgb Hct MCV MCH MCHC RDW Plt Count MPV Neut % (Auto) Lymph % (Auto) [place] % (Auto) Eos % (Auto) Baso % (Auto) Neut # Lymph # [place] # Eos # Baso # Neutrophils % (Manual) Band Neutrophils % Lymphocytes % (Manual) Monocytes % (Manual) Platelet Estimate Polychromasia Hypochromasia (manual) Anisocytosis (manual) Microcytosis (manual) Ovalocytes POC Glucose (mg/dL) 396 H Hemoglobin A1c Iron 28 L TIBC 245 L % Saturation 11 L Transferrin Ferritin Total Creatine Kinase CK-MB (Mass) Troponin I, Quant Blood Type Antibody Screen Assessment & Plan (1) Diabetes mellitus Status: h (2) CAD (coronary artery disease) Status: h (3) Chest pain Assessment and Plan: 08/28/16 EKG- sinus tachy, physiologic axis, normal intervals, Q waves present in AVL and AVR, ST depression noted in V4 and V5 (new from prior EKG 09/24/14) - nuclear stress test when hemodynamically stable - echo ordered Troponin negative x 1. trend for 3 values CKMD negative Repeat EKG with Troponin draws orthostatic vital signs with pulse recordings in AM Holding anticoagulation 2/2 to acute drop in H&H - EGD/colonoscopy plan for if patient agreeable; clear liquid diet now Continue Crestor 20mg PO HS Continue medical management per primary medical team Case Discussed with Dr. Ambika Garcia PGY1 Status: c - Date & Time Date: 08/28/16 Time: 17:25 <Santy Apple A - Last Filed: 09/25/16 19:42> Results - Vital Signs Recent Vital Signs: Last Vital Signs Temp 97.5 F L 09/13/16 16:00 Pulse 74 09/13/16 16:00 Resp 20 09/13/16 16:00 BP 121/67 09/13/16 16:00 Pulse Ox 97 09/13/16 16:00 - Labs Result Diagrams: 09/13/16 07:15 09/13/16 07:15 Assessment & Plan (1) Diabetes mellitus with ulcer of ankle Status: Acute (2) PAD (peripheral artery disease) Status: Acute (3) CAD (coronary artery disease) Status: Chronic Attending/Attestation - Attestation I have personally seen and examined this patient.: Yes I have fully participated in the care of the patient.: Yes I have reviewed all pertinent clinical information: Yes Notes (Text): 09/25/16 19:41 trend troponin plan egd
[2016-08-28] MEDS: (Novolin R) Insulin Human Regular 100 units/ml vial SC SCH ×2 (18:55→21:45)
[2016-08-28] MEDS: (Lantus) Insulin Glargine, Recombinant SC SCH (21:44)
[2016-08-28 21:55] LABS: RBC URINE < 1 /hpf (0-3); URINE BACTERIA RARE (<OCC); URINE BILIRUBIN NEGATIVE (NEGATIVE); URINE BLOOD NEGATIVE (NEGATIVE); URINE COLOR Yellow (YELLOW); URINE GLUCOSE (UA) 3+ mg/dL (Normal); URINE KETONE NEGATIVE (NEGATIVE); URINE LEUKOCYTE ESTERASE NEG Leu/uL (Negative); URINE PROTEIN NEGATIVE (NEGATIVE); URINE UROBILINOGEN NORMAL mg/dL (0.2-1.0); WBC URINE < 1 /hpf (0-5)
[2016-08-29] MEDS: Piperacillin/Tazobact 3.375 GM in Sodium Chloride 100 ML IVPB SCH ×5 (00:08→23:08)
[2016-08-29 02:21] LABS: CHLORIDE 103 mmol/L (98-107); POTASSIUM 3.7 mmol/L (3.6-5.2); SODIUM 136 mmol/L (132-148)
[2016-08-29 02:23] LABS: ALB/GLOB RATIO 0.7 (1.0-2.1); AST/SGOT 18 U/L (17-59); BILIRUBIN,TOTAL 0.9 mg/dL (0.2-1.3); CARBON DIOXIDE 22 mmol/L (22-30); GFR AFRICAN-AMERICAN > 60
[2016-08-29 02:24] LABS: ALKALINE PHOSPHATASE 94 U/L (38-126); ALT/SGPT 19 U/L (21-72); BLOOD UREA NITROGEN 14 mg/dL (9-20); CALCIUM 8.5 mg/dl (8.6-10.4); GLUCOSE,RANDOM 180 mg/dL (75-110)
--- NOTE | 2016-08-29 05:36 | CON ---
DATE: 08/28/2016 CHIEF COMPLAINT: This is a 71-year-old male, patient of Dr. Tim Ramírez admitted to [facility] with a chief complaint of cellulitis and infected diabetic ulcer. HISTORY OF PRESENT ILLNESS: The patient has chronic ulceration of the right lower extremity, which h as not healed despite outpatient treatment. He complains of severe pain and difficulty ambulating be cause of this. He denies fever, chills, headache, earache, toothache, visual disturbances, or weight loss. Stage III ulcer has been present for several months. He has been treated as an outpati ent which has failed to respond. PAST MEDICAL HISTORY: Positive for diabetes, hypertension, peripheral vascular disease, neuropathy, COPD. SOCIAL HISTORY: Previous smoker. Denies alcohol at this time. No IV drug abuse. FAMILY HISTORY: Positive for diabetes. ALLERGIES: None. MEDICATIONS INCLUDE: Insulin, Zosyn 3.375 g IV every 8 hours, multivitamins, Crestor. REVIEW OF SYSTEMS: Denies headache, earache, toothache, visual disturbances, or weight loss. Denies sore throat. Denies odynophagia. Denies neck stiffness. No lymphadenopathy. No chills. No fever . No chest pain. No abdominal pain. No nausea. No vomiting. No diarrhea. No change in bowel hab its. No frequency or urgency of urination. No loss of consciousness. PHYSICAL EXAMINATION: GENERAL: Reveals well-nourished, well-developed male. Appears , no acute distress. VITAL SIGNS: Temperature is 99, T-max 100.2, BP 130/70, pulse 96 regular, respiratory rate is 16. HEENT: Normocephalic, atraumatic. Eyes: Pupils are reactive to accommodation. Extraocular motions intact. Conjunctivae are pink. Ears: Normal. Nose: Normal. Throat: Normal. NECK: Supple. No lymphadenopathy. No tracheal deviation. No thyromegaly. CHEST: Symmetrical expansion bilaterally. LUNGS: Decreased breath sounds. Clear to auscultation. HEART: S1, S2 regular. No murmurs, rubs, or gallops. ABDOMEN: Soft, nontender, scaphoid, bowel sounds present. No rebound or guarding. No masses. GENITOURINARY: Normal external male genitalia. EXTREMITIES: Reveal atrophic changes of the skin. Peripheral pulses diminished. Large ulceration, right lower extremity, medial aspect, with approximately 6 cm crater in the middle. NEUROLOGIC: Reveals some decrease in the sensation. Cranial nerves II-XII intact. LABORATORY DATA: Show white count, 11.3, hemoglobin 12.2, platelet count 267,000. BUN 23, creatinin e 0.9. Blood cultures and wound cultures are pending. IMPRESSION: Nonhealing ulcer in a 71-year-old male with history of diabetes, probable peripheral vas cular disease. The patient needs careful, close evaluation and would consider vascular surgery consu ltation to rule out the possibility of impending gangrene secondary to severe peripheral vascular dis ease. Possibility of need for debridement makes it imperative that we do an arterial venous study to better understand contributing factors in this patient's infection. The ulcer on the ankle appears to be chronic. The possibility of underlying osteomyelitis should be considered. MRI and/or bone sc an would be advisable at this time. The patient has been started on broad-spectrum antibiotic therap y including Zosyn. IV therapy is going to continue. We will narrow the spectrum of activity once the patient's sensitivities are available. The prognosis for limb salvage appears to be guarded at best . We will discuss further with you and add further recommendations. Thank you very much for allowing me to participate in the care of this patient. Zeferino Bishop MD cc: [id number] TT: 08/29/2016 05:35:40 Confirmation # [id number] Dictation # [id number] tn
[2016-08-29 06:51] LABS: BASO % 0.3 % (0.0-2.0); EOS # 0.1 K/uL (0.0-0.7); EOS % 3.4 % (0.0-4.0); HEMATOCRIT 22.9 % (35.0-51.0); LYMPH # 1.2 K/uL (1.0-4.3); LYMPH % 37.8 % (20.0-40.0); MEAN CELL VOLUME 73.2 fL (80.0-94.0); MEAN CORPUSCULAR HEMOGLOBIN 24.8 pg (27.0-31.0); MEAN CORPUSCULAR HGB CONC 33.9 g/dL (33.0-37.0); MEAN PLATELET VOLUME 8.7 fL (7.2-11.7); MONO # 0.6 K/uL (0.0-0.8); MONO % 20.5 % (0.0-10.0); PLATELET COUNT 147 K/uL (130-400); RED CELL DISTRIBUTION WIDTH 19.9 % (11.5-14.5); WHITE BLOOD COUNT 3.1 K/uL (4.8-10.8)
--- NOTE | 2016-08-29 07:14 | CP.PCM.PN ---
<Shelton Garcia - Last Filed: 08/29/16 10:44> Subjective - Date & Time of Evaluation Date of Evaluation: 08/29/16 Time of Evaluation: 07:11 - Subjective Subjective: Cardiology Progress Note Dr. Apple Patient seen and examined at the bedside. No acute distress. Patient's troponins trended upward overnight (.0210 > .9390 > 1.2400). The nursing staff reports no issues. House doc overnight was notified. Patient was not started on anticoagulation at that time 2/2 to possible GIB. The patient received 1 unit of PRBCs overnight as well. Patient this morning has no complaints. Patient denies chest pain and palpitations overnight. The patient presently denies fever, chills, headache, chest pain, palpitations, SOB, abdominal pain, N /V/D/C, changes in bowel/bladder, and extremity paresthesias. Objective - Vital Signs/Intake and Output Vital Signs (last 24 hours): Temp Pulse Resp BP Pulse Ox 98.5 F 75 20 108/60 97 08/29/16 00:00 08/29/16 00:10 08/29/16 00:00 08/29/16 00:00 08/28/16 23:05 Intake and Output: 08/29/16 08/29/16 06:59 18:59 Intake Total 975 Output Total 600 Balance 375 - Medications Medications: Current Medications Ferric Sodium Gluconate Complex (Ferrlecit) 125 mg IVPB DAILY [facility] Stop: 09/06/16 10:01 Piperacillin Sod/Tazobactam (Sod 3.375 gm/ Sodium Chloride) 100 mls @ 200 mls/ hr IVPB Q6H [facility] Last Admin: 08/29/16 05:28 Dose: 200 mls/hr Insulin Glargine (Lantus) 10 unit SC HS [facility] Last Admin: 08/28/16 21:44 Dose: 10 units Insulin Human Regular (Novolin R) 0 unit SC ACHS [facility] PRN Reason: Protocol Last Admin: 08/28/16 21:45 Dose: Not Given Rosuvastatin Calcium (Crestor) 20 mg PO HS [facility] Last Admin: 08/28/16 21:44 Dose: 20 mg - Labs Labs: 08/28/16 11:22 08/29/16 01:49 - Additional Findings Additional findings: - Constitutional Appears: No Acute Distress, Chronically Ill - Head Exam Head Exam: ATRAUMATIC, NORMAL INSPECTION, NORMOCEPHALIC - Eye Exam Eye Exam: EOMI, Normal appearance - ENT Exam ENT Exam: Mucous Membranes Dry - Neck Exam Neck exam: Positive for: Full Rom, Normal Inspection. Negative for: Lymphadenopathy, Tenderness - Respiratory Exam Respiratory Exam: Clear to Auscultation Bilateral, NORMAL BREATHING PATTERN. absent: Rhonchi, Wheezes, Respiratory Distress - Cardiovascular Exam Cardiovascular Exam: REGULAR RHYTHM, RRR, +S1, +S2. absent: Diastolic murmur, Systolic Murmur - GI/Abdominal Exam GI & Abdominal Exam: Normal Bowel Sounds, Soft. absent: Distended, Firm, Guarding, Tenderness - Extremities Exam Extremities exam: Positive for: pedal pulses present (diminished 1+/4). Negative for: normal inspection, pedal edema Additional comments: chronic venous stasis dermatitis changes B/L LLE: >5cm diameter ulcer on the medial maleolus. Dressing changed by wound care at bedside - Back Exam Back exam: NORMAL INSPECTION. absent: CVA tenderness (L), CVA tenderness (R) - Neurological Exam Neurological exam: Alert, CN II-XII Intact, Oriented x3 - Skin Skin Exam: Dry, Mottled, Warm Assessment and Plan (1) Diabetes mellitus Status: h (2) CAD (coronary artery disease) Status: h (3) Chest pain Assessment & Plan: Troponin Trending Up (.0210 > 0.9390 > 1.2400) - repeat HEATH ordered with EKG 08/29/16 EKG- Normal sinus rhythm, physiologic axis, normal intervals, New Q waves present, resudial ST depression noted in V4 and V6 Stress Test Cancelled Echo Pending Transfer to ICU for monitoring- Dr. Ross has accepted No EGD/Colonoscopy until cardiac clearance per GI Type and Cross X [address] Koroma will make arrangements if patients does ultimately require cardiac cath Cardiac Care will continue with Dr. Koroma 08/28/16 EKG- sinus tachy, physiologic axis, normal intervals, Q waves present in AVL and AVR, ST depression noted in V4 and V5 (new from prior EKG 09/24/14) CK[facility] negative orthostatic vital signs with pulse recordings in AM Holding anticoagulation 2/2 to acute drop in H&H - EGD/colonoscopy once cardiac clear Continue Crestor 20mg PO HS Continue medical management per primary medical team Case Discussed with Dr. Ambika Garcia PGY1 Status: c <Santy Apple - Last Filed: 09/25/16 19:44> Objective - Vital Signs/Intake and Output Vital Signs (last 24 hours): Temp Pulse Resp BP Pulse Ox 97.5 F L 74 20 121/67 97 09/13/16 16:00 09/13/16 16:00 09/13/16 16:00 09/13/16 16:00 09/13/16 16:00 - Labs Labs: 09/13/16 07:15 09/13/16 07:15 PT 13.3 SECONDS (9.7-12.2) H 09/09/16 06:10 INR 1.2 09/09/16 06:10 APTT 34 SECONDS (21-34) 09/04/16 06:48 Assessment and Plan (1) Diabetes mellitus with ulcer of ankle Status: Acute (2) PAD (peripheral artery disease) Status: Acute (3) CAD (coronary artery disease) Status: Chronic Attending/Attestation - Attestation I have personally seen and examined this patient.: Yes I have fully participated in the care of the patient.: Yes I have reviewed all pertinent clinical information, including history, physical exam and plan: Yes Notes (Text): 09/25/16 19:43 transfer to ICU drop in hct.hgb
[2016-08-29] MEDS: (Novolin R) Insulin Human Regular 100 units/ml vial SC SCH ×4 (08:07→22:27)
[2016-08-29 08:35] LABS: TOTAL CELLS COUNTED 100
[2016-08-29 08:36] LABS: EOSINOPHIL 2 % (0-4)
[2016-08-29 08:37] LABS: NEUTROPHIL 39 % (50-75)
[2016-08-29] MEDS: Ferric Sodium Gluconat Complex 62.5 mg/5 ml Vial IVPB SCH (10:27)
--- NOTE | 2016-08-29 10:53 | CP.PCM.PN ---
<AbenaslimeAbdiaziz crews - Last Filed: 08/29/16 12:53> Subjective - Date & Time of Evaluation Date of Evaluation: 08/29/16 Time of Evaluation: 10:30 - Subjective Subjective: PGY4 GI Fellow Progress Note Patient seen and examined bedside this morning. The patient is complaining that he is hungry as he has been kept NPO. Overnight had elevation in troponin and concern over some progressive changes in EKG. Currently in process to be transferred to ICU. He is asymptomatic and very comfortable at present. Denies any chest pain. No overt bleeding for several days now. 12 system ROS performed and negative except where stated. Objective - Vital Signs/Intake and Output Vital Signs (last 24 hours): Temp Pulse Resp BP Pulse Ox 97.4 F L 70 20 123/63 99 08/29/16 07:00 08/29/16 07:00 08/29/16 07:00 08/29/16 07:00 08/29/16 07:00 Intake and Output: 08/29/16 08/29/16 06:59 18:59 Intake Total 975 Output Total 600 Balance 375 - Medications Medications: Current Medications Ferric Sodium Gluconate Complex (Ferrlecit) 125 mg IVPB DAILY [facility] Stop: 09/06/16 10:01 Last Admin: 08/29/16 10:27 Dose: 125 mg Piperacillin Sod/Tazobactam (Sod 3.375 gm/ Sodium Chloride) 100 mls @ 200 mls/ hr IVPB Q6H [facility] Last Admin: 08/29/16 05:28 Dose: 200 mls/hr Insulin Glargine (Lantus) 10 unit SC [facility] Last Admin: 08/28/16 21:44 Dose: 10 units Insulin Human Regular (Novolin R) 0 unit SC [facility] PRN Reason: Protocol Last Admin: 08/29/16 08:07 Dose: Not Given Rosuvastatin Calcium (Crestor) 20 mg PO HS [facility] Last Admin: 08/28/16 21:44 Dose: 20 mg - Labs Labs: 08/29/16 06:43 08/29/16 01:49 - Constitutional Appears: Non-toxic, No Acute Distress - Eye Exam Eye Exam: EOMI, PERRL - ENT Exam ENT Exam: Mucous Membranes Moist - Respiratory Exam Respiratory Exam: Clear to Ausculation Bilateral. absent: Rales, Rhonchi, Wheezes - Cardiovascular Exam Cardiovascular Exam: RRR, +S1, +S2 - GI/Abdominal Exam GI & Abdominal Exam: Soft, Normal Bowel Sounds. absent: Distended, Firm, Guarding, Rigid, Tenderness, Organomegaly - Extremities Exam Extremities Exam: Normal Inspection. absent: Pedal Edema - Neurological Exam Neurological Exam: Alert, Awake, Oriented x3 - Psychiatric Exam Psychiatric exam: Normal Affect, Normal Mood - Skin Skin Exam: Dry, Pallor, Warm Assessment and Plan - Assessment and Plan (Free Text) Assessment: Patient is a 71yo male with PMHx significant for CAD s/p PCI with 2 stents placed, HTN, DM, diabetic foot ulcers/venous stasis ulcers, tobacco and distant alcohol abuse who presented to the ED complaining of a non-healing right foot wound -Microcytic iron deficient anemia -Lower extremity ulceration -CAD, suspect PAD -HTN -DM -Constipation -Troponinemia, new Q waves noted on EKG - suspect predominantly due to demand ischemia in setting of anemia - pt asymptomatic Plan: -S/p 1 unit PRBC, to be transfused again today -Decision by cardiology to move patient to ICU for closer monitoring -Plan for possible cardiac catheterization today in light of EKG changes; awaiting plan per cardiology service -There is still no evidence of acute GI hemorrhage -Patient would benefit from EGD/colonoscopy given microcytic anemia and no prior screening; plan pending cardiology work up and clearance for procedure -Currently on IV iron supplementation -IV antibiotics per primary service -Miralax 17g PO QD -HCV screening negative <Joya Weiss - Last Filed: 08/29/16 15:26> Objective - Vital Signs/Intake and Output Vital Signs (last 24 hours): Temp Pulse Resp BP Pulse Ox 97.5 F L 64 16 147/63 100 08/29/16 14:51 08/29/16 14:51 08/29/16 14:51 08/29/16 14:51 08/29/16 14:23 Intake and Output: 08/29/16 08/29/16 06:59 18:59 Intake Total 975 1100 Output Total 600 200 Balance 375 900 - Medications Medications: Current Medications Ferric Sodium Gluconate Complex (Ferrlecit) 125 mg IVPB DAILY [facility] Stop: 09/06/16 10:01 Last Admin: 08/29/16 10:27 Dose: 125 mg Piperacillin Sod/Tazobactam (Sod 3.375 gm/ Sodium Chloride) 100 mls @ 200 mls/ hr IVPB Q6H [facility] Last Admin: 08/29/16 12:56 Dose: 200 mls/hr Insulin Glargine (Lantus) 10 unit SC HS [facility] Last Admin: 08/28/16 21:44 Dose: 10 units Insulin Human Regular (Novolin R) 0 unit SC ACHS [facility] PRN Reason: Protocol Last Admin: 08/29/16 11:55 Dose: Not Given Pantoprazole Sodium (Protonix Inj) 40 mg IVP DAILY [facility] Last Admin: 08/29/16 15:07 Dose: 40 mg Rosuvastatin Calcium (Crestor) 20 mg PO HS [facility] Last Admin: 08/28/16 21:44 Dose: 20 mg - Labs Labs: 08/29/16 06:43 08/29/16 01:49 Attending/Attestation - Attestation I have personally seen and examined this patient.: Yes I have fully participated in the care of the patient.: Yes I have reviewed all pertinent clinical information, including history, physical exam and plan: Yes Notes (Text): Patient seen and examined with GI fellow. Agree with his note as documented above with the following additions/exceptions. This is a 71yo male with PMHx significant CAD s/p PCI, HTN, DM, diabetic foot ulcers/venous stasis ulcers who is admitted with microcytic/iron deficiency anemia, course complicated with elevated troponin with EKG changes, patient currently asymptomatic. He denies any abdominal pain. He reports constipation, no overt GI blood loss. Follow up cardiology recommendations for elevated troponin, ?demand ischemia. He would certainly benefit from endoscopic evaluation with EGD/colonoscopy given iron deficiency anemia, which can be arranged pending cardiac evaluation. Will continue to follow and make recommendations pending clinical course. 08/29/16 15:23
--- NOTE | 2016-08-29 11:31 | CP.PCM.CON ---
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 Ross HPI: Patient is a 71 yo male, with PMHx of COPD, CAD (s/p PCI with 2 stents placed in [facility] in 2012), venous stasis dermatitis with ulcer , HTN, uncontrolled DM, diabetic foot ulcers, and tobacco abuse, who presented to [facility] ED on 08/28 c/o non-healing right foot ulcer. He reports long history of similar wounds on his legs, and this particular wound began one month prior. When the wound began to drain and "smell funny" he decided to go to the ED. On day of admission pt began to complain of left-sided chest pain that felt like "gas pain." The patient states that the pain lasted 15-30mins. The patient notes that he has this pain frequently, but has not sought medical advice for the occurrences. The patient notes that he had PCI with stenting 5 years ago and was placed on aspirin, plavix, and a statin which he reports compliance. The patient notes that he has no issues with SOB while performing his ADLs/ IADLs. he patient denies any syncopal episodes in the past, and he has never had an echocardiogram done. ICU was called for evaluation after ST depressions were seen on EKG in context of pts worsening anemia. Troponins, ordered on admission yesterday, became positive overnight. Hemoglobin was 7.7 on admission, but decreased to 6.7 on repeat, so patient was transfused one unit of PRBCs overnight. Pt unable to be anticoagulated at this time due to unknown source of bleeding. Additional order was placed for 2 units PRBCs this AM. Follow-up troponin this AM was down- trending. Pt denies dizziness, current chest pain, palpitations, abdominal pain , hematochezia. PMH: COPD, CAD (s/p PCI with 2 stents 5 years ago), venous stasis dermatitis with ulcer, HTN, uncontrolled DM, diabetic foot ulcers, and tobacco abuse Social: 2 ppd smoking x 61 years, heavy alcohol use (quit at age 45), denies all illicit drug use Surg: Stenting x 2 in 05/2012 and 07/2012, The patient's first PCI was 05/28/[address] De (at [facility]) a 3.0 x 12 TOVA was placed in the proximal left circumflex. The second PCI was 08/05/12, again with Dr. De. The second stent was a 3.0 x 18 TOVA placed in the proximal RCA. The patient had a negative stress test prior to his second PCI on 07/17/12. Allergy: NKDA FHx: denies Review of Systems - Constitutional Constitutional: absent: Chills, Fever - EENT Eyes: absent: Change in Vision Ears: absent: Decreased Hearing Nose/Mouth/Throat: absent: Nasal Discharge - Cardiovascular Cardiovascular: Leg Ulcers. absent: Chest Pain, Chest Pain at Rest, Dyspnea, Dyspnea on Exertion - Respiratory Respiratory: absent: Cough, Dyspnea on Exertion - Gastrointestinal Gastrointestinal: Constipation. absent: Abdominal Pain, Nausea, Vomiting - Genitourinary Genitourinary: absent: Dysuria - Musculoskeletal Musculoskeletal: absent: Back Pain, Numbness, Tingling - Integumentary Integumentary: Non-Healing Lesions, Wounds Additional comments: 5.5 cm diameter ulcer over right medial malleolus. Green, purulent discharge with foul odor. Chronic venous stasis changes noted on bilateral legs. - Neurological Neurological: absent: Weakness - Psychiatric Psychiatric: absent: Anxiety, Depression - Endocrine Endocrine: absent: Polydipsia, Polyphagia, Polyuria - Hematologic/Lymphatic Hematologic: absent: Easy Bleeding Past Patient History - Tetanus Immunizations Tetanus Immunization: Unknown - Past Medical History & Family History Past Medical History?: No - Past Social History Smoking Status: Former Smoker - CARDIAC Hx Heart Attack: Yes Hx Hypercholesterolemia: Yes Hx Hypertension: Yes Other/Comment: stent placement - PULMONARY Hx Respiratory Disorders: No - NEUROLOGICAL Hx Paralysis: No - HEENT Hx HEENT Problems: No - RENAL Hx Chronic Kidney Disease: Yes Hx Kidney Stones: Yes - ENDOCRINE/METABOLIC Hx Endocrine Disorders: Yes Hx Diabetes Mellitus Type 2: Yes - HEMATOLOGICAL/ONCOLOGICAL Hx Anemia: Yes Hx Blood Transfusions: No Hx Blood Transfusion Reaction: No - INTEGUMENTARY Hx Dermatological Problems: Yes Hx Cellulitis: Yes - MUSCULOSKELETAL/RHEUMATOLOGICAL Hx Musculoskeletal Disorders: Yes Hx Back Pain: Yes Hx Falls: Yes Hx Spinal Stenosis: Yes - GASTROINTESTINAL Hx Gastrointestinal Disorders: No - GENITOURINARY/GYNECOLOGICAL Hx Genitourinary Disorders: No Hx Prostate Problems: Yes - PSYCHIATRIC Hx Substance Use: No - SURGICAL HISTORY Hx Coronary Stent: Yes - ANESTHESIA Hx Anesthesia: Yes Hx Anesthesia Reactions: No Hx Malignant Hyperthermia: No Meds Allergies/Adverse Reactions: Allergies Allergy/AdvReac Type Severity Reaction Status Date / Time No Known Allergies Allergy Unverified 05/03/15 14:16 - Medications Medications: Current Medications Ferric Sodium Gluconate Complex (Ferrlecit) 125 mg IVPB DAILY [facility] Stop: 09/06/16 10:01 Last Admin: 08/29/16 10:27 Dose: 125 mg Piperacillin Sod/Tazobactam (Sod 3.375 gm/ Sodium Chloride) 100 mls @ 200 mls/ hr IVPB Q6H [facility] Last Admin: 08/29/16 05:28 Dose: 200 mls/hr Insulin Glargine (Lantus) 10 unit SC [facility] Last Admin: 08/28/16 21:44 Dose: 10 units Insulin Human Regular (Novolin R) 0 unit SC ACHS [facility] PRN Reason: Protocol Last Admin: 08/29/16 08:07 Dose: Not Given Rosuvastatin Calcium (Crestor) 20 mg PO [facility] Last Admin: 08/28/16 21:44 Dose: 20 mg Physical Exam - Constitutional Appears: Non-toxic, No Acute Distress - Head Exam Head Exam: ATRAUMATIC, NORMOCEPHALIC - Eye Exam Eye Exam: EOMI Pupil Exam: PERRL - ENT Exam ENT Exam: Mucous Membranes Moist - Respiratory Exam Respiratory Exam: Clear to Auscultation Bilateral, NORMAL BREATHING PATTERN. absent: Rales, Rhonchi, Wheezes - Cardiovascular Exam Cardiovascular Exam: REGULAR RHYTHM, +S1, +S2 - GI/Abdominal Exam GI & Abdominal Exam: Normal Bowel Sounds, Soft. absent: Guarding, Rigid, Tenderness - Rectal Exam Rectal Exam: Deferred - Extremities Exam Extremities exam: Positive for: normal inspection, pedal pulses present (1+/4 in right foot). Negative for: pedal edema - Back Exam Back exam: absent: CVA tenderness (L), CVA tenderness (R) - Psychiatric Exam Psychiatric exam: Normal Affect - Skin Skin Exam: Pallor Additional comments: wounds noted on RLE. Results - Vital Signs Recent Vital Signs: Last Vital Signs Temp 97.4 F L 08/29/16 07:00 Pulse 70 08/29/16 07:00 Resp 20 08/29/16 07:00 BP 123/63 08/29/16 07:00 Pulse Ox 99 08/29/16 07:00 - Labs Result Diagrams: 08/29/16 06:43 08/29/16 01:49 Labs: Laboratory Results - last 24 hr 08/28/16 08/28/16 08/28/16 05:57 11:22 11:57 WBC 3.9 L RBC 2.75 L Hgb 6.7 L Hct 20.1 L MCV 73.1 L MCH 24.5 L MCHC 33.4 RDW 19.9 H Plt Count 134 MPV 9.0 Neut % (Auto) 56.4 Lymph % (Auto) 21.1 [place] % (Auto) 20.8 H Eos % (Auto) 1.3 Baso % (Auto) 0.4 Neut # 2.2 Lymph # 0.8 L [place] # 0.8 Eos # 0.0 Baso # 0.0 Neutrophils % (Manual) 56 Band Neutrophils % 5 H Lymphocytes % (Manual) 22 Monocytes % (Manual) 17 H Eosinophils % (Manual) Platelet Estimate Normal Polychromasia Slight Hypochromasia (manual) Slight Poikilocytosis (manual Anisocytosis (manual) Slight Microcytosis (manual) Moderate Ovalocytes Slight [place] Cells Sodium Potassium Chloride Carbon Dioxide Anion Gap BUN Creatinine Est GFR ( Amer) Est GFR (Non-Af Amer) POC Glucose (mg/dL) 396 H Random Glucose Hemoglobin A1c 10.0 H Calcium Iron TIBC % Saturation Transferrin 162.55 L Ferritin 159.0 Total Bilirubin AST ALT Alkaline Phosphatase Total Creatine Kinase < 20 L CK-MB (Mass) 0.42 Troponin I, Quant 0.0210 Total Protein Albumin Globulin Albumin/Globulin Ratio Urine Color Urine Clarity Urine pH Ur Specific [place] Urine Protein Urine Glucose (UA) Urine Ketones Urine Blood Urine Nitrate Urine Bilirubin Urine Urobilinogen Ur Leukocyte Esterase Urine WBC (Auto) Urine RBC (Auto) Ur Squamous Epith Cells Urine Bacteria Hepatitis A IgM Ab Hep Bs Antigen Hep B Core IgM Ab Hepatitis C Antibody Blood Type Cancelled Antibody Screen Cancelled 08/28/16 08/28/16 08/28/16 13:53 16:49 17:07 WBC RBC Hgb Hct MCV MCH MCHC RDW Plt Count MPV Neut % (Auto) Lymph % (Auto) [place] % (Auto) Eos % (Auto) Baso % (Auto) Neut # Lymph # [place] # Eos # Baso # Neutrophils % (Manual) Band Neutrophils % Lymphocytes % (Manual) Monocytes % (Manual) Eosinophils % (Manual) Platelet Estimate Polychromasia Hypochromasia (manual) Poikilocytosis (manual Anisocytosis (manual) Microcytosis (manual) Ovalocytes [place] Cells Sodium Potassium Chloride Carbon Dioxide Anion Gap BUN Creatinine Est GFR ( Amer) Est GFR (Non-Af Amer) POC Glucose (mg/dL) 358 H Random Glucose Hemoglobin A1c Calcium Iron 28 L TIBC 245 L % Saturation 11 L Transferrin Ferritin Total Bilirubin AST ALT Alkaline Phosphatase Total Creatine Kinase CK-MB (Mass) Troponin I, Quant Total Protein Albumin Globulin Albumin/Globulin Ratio Urine Color Urine Clarity Urine pH Ur Specific [place] Urine Protein Urine Glucose (UA) Urine Ketones Urine Blood Urine Nitrate Urine Bilirubin Urine Urobilinogen Ur Leukocyte Esterase Urine WBC (Auto) Urine RBC (Auto) Ur Squamous Epith Cells Urine Bacteria Hepatitis A IgM Ab Negative Hep Bs Antigen Negative Hep B Core IgM Ab Negative Hepatitis C Antibody Negative Blood Type A POSITIVE Antibody Screen Negative 08/28/16 08/28/16 08/28/16 18:42 18:50 21:01 WBC RBC Hgb Hct MCV MCH MCHC RDW Plt Count MPV Neut % (Auto) Lymph % (Auto) [place] % (Auto) Eos % (Auto) Baso % (Auto) Neut # Lymph # [place] # Eos # Baso # Neutrophils % (Manual) Band Neutrophils % Lymphocytes % (Manual) Monocytes % (Manual) Eosinophils % (Manual) Platelet Estimate Polychromasia Hypochromasia (manual) Poikilocytosis (manual Anisocytosis (manual) Microcytosis (manual) Ovalocytes [place] Cells Sodium Potassium Chloride Carbon Dioxide Anion Gap BUN Creatinine Est GFR ( Amer) Est GFR (Non-Af Amer) POC Glucose (mg/dL) 375 H 259 H Random Glucose Hemoglobin A1c Calcium Iron TIBC % Saturation Transferrin Ferritin Total Bilirubin AST ALT Alkaline Phosphatase Total Creatine Kinase 41 L CK-MB (Mass) 4.06 H Troponin I, Quant 0.9390 H* Total Protein Albumin Globulin Albumin/Globulin Ratio Urine Color Urine Clarity Urine pH Ur Specific [place] Urine Protein Urine Glucose (UA) Urine Ketones Urine Blood Urine Nitrate Urine Bilirubin Urine Urobilinogen Ur Leukocyte Esterase Urine WBC (Auto) Urine RBC (Auto) Ur Squamous Epith Cells Urine Bacteria Hepatitis A IgM Ab Hep Bs Antigen Hep B Core IgM Ab Hepatitis C Antibody Blood Type Antibody Screen 04/18/17 04/19/17 04/19/17 21:28 01:49 06:14 WBC RBC Hgb Hct MCV MCH MCHC RDW Plt Count MPV Neut % (Auto) Lymph % (Auto) [place] % (Auto) Eos % (Auto) Baso % (Auto) Neut # Lymph # [place] # Eos # Baso # Neutrophils % (Manual) Band Neutrophils % Lymphocytes % (Manual) Monocytes % (Manual) Eosinophils % (Manual) Platelet Estimate Polychromasia Hypochromasia (manual) Poikilocytosis (manual Anisocytosis (manual) Microcytosis (manual) Ovalocytes [place] Cells Sodium 136 Potassium 3.7 Chloride 103 Carbon Dioxide 22 Anion Gap 14 BUN 14 Creatinine 0.9 Est GFR ( Amer) > 60 Est GFR (Non-Af Amer) > 60 POC Glucose (mg/dL) 210 H Random Glucose 180 H Hemoglobin A1c Calcium 8.5 L Iron TIBC % Saturation Transferrin Ferritin Total Bilirubin 0.9 AST 18 ALT 19 L Alkaline Phosphatase 94 Total Creatine Kinase 36 L CK-MB (Mass) 4.08 H Troponin I, Quant 1.2400 H* Total Protein 6.0 L Albumin 2.5 L D Globulin 3.5 Albumin/Globulin Ratio 0.7 L Urine Color Yellow Urine Clarity Clear Urine pH 5.0 Ur Specific [place] 1.013 Urine Protein Negative Urine Glucose (UA) 3+ H Urine Ketones Negative Urine Blood Negative Urine Nitrate Negative Urine Bilirubin Negative Urine Urobilinogen Normal Ur Leukocyte Esterase Neg Urine WBC (Auto) < 1 Urine RBC (Auto) < 1 Ur Squamous Epith Cells < 1 Urine Bacteria Rare Hepatitis A IgM Ab Hep Bs Antigen Hep B Core IgM Ab Hepatitis C Antibody Blood Type Antibody Screen 08/29/16 08/29/16 06:43 09:45 WBC 3.1 L RBC 3.13 L Hgb 7.8 L Hct 22.9 L MCV 73.2 L MCH 24.8 L MCHC 33.9 RDW 19.9 H Plt Count 147 MPV 8.7 Neut % (Auto) 38.0 L Lymph % (Auto) 37.8 [place] % (Auto) 20.5 H Eos % (Auto) 3.4 Baso % (Auto) 0.3 Neut # 1.2 L Lymph # 1.2 [place] # 0.6 Eos # 0.1 Baso # 0.0 Neutrophils % (Manual) 39 L Band Neutrophils % Lymphocytes % (Manual) 40 Monocytes % (Manual) 19 H Eosinophils % (Manual) 2 Platelet Estimate Normal Polychromasia Slight Hypochromasia (manual) Slight Poikilocytosis (manual Slight Anisocytosis (manual) Slight Microcytosis (manual) Slight Ovalocytes Slight [place] Cells Slight Sodium Potassium Chloride Carbon Dioxide Anion Gap BUN Creatinine Est GFR ( Amer) Est GFR (Non-Af Amer) POC Glucose (mg/dL) Random Glucose Hemoglobin A1c Calcium Iron TIBC % Saturation Transferrin Ferritin Total Bilirubin AST ALT Alkaline Phosphatase Total Creatine Kinase 31 L CK-MB (Mass) 2.42 Troponin I, Quant 0.9860 H* Total Protein Albumin Globulin Albumin/Globulin Ratio Urine Color Urine Clarity Urine pH Ur Specific [place] Urine Protein Urine Glucose (UA) Urine Ketones Urine Blood Urine Nitrate Urine Bilirubin Urine Urobilinogen Ur Leukocyte Esterase Urine WBC (Auto) Urine RBC (Auto) Ur Squamous Epith Cells Urine Bacteria Hepatitis A IgM Ab Hep Bs Antigen Hep B Core IgM Ab Hepatitis C Antibody Blood Type Antibody Screen Assessment & Plan - Assessment and Plan (Free Text) Assessment: Patient is a 71yo male with PMHx significant for CAD s/p PCI with 2 stents placed, HTN, DM, diabetic foot ulcers/venous stasis ulcers, tobacco and distant alcohol abuse who presented to the ED complaining of a non-healing right foot wound. Microcytic iron-deficiency anemia found on labs. Pt denies overt bleeding. Chest pain with EKG changes, so pt transferred to ICU. Plan: Neuro: AAOx3 CV: R/o ACS Troponin Positive (.0210 > 0.9390 > 1.2400> 0.9860) - latest troponin downtrending EKG (08/28/16): sinus tachy, physiologic axis, normal intervals, Q waves present in AVL and AVR, ST depression noted in V4 and V5 (new from prior EKG) EKG (08/29/16): Normal sinus rhythm, physiologic axis, normal intervals, New Q waves present, residual ST depression noted in V4 and V6 ECHO (08/29/16): Read by Dr. Moreno; EF55%, Normal wall motion, no significant valve lesions - Prior Stress (04/2014): Normal nuclear perfusion, Normal LVEF [employer]: Dr Coughlin/Tiffanie, help appreciated - Minimal troponin elevation due to demand ischemia from anemia - Medical optimization with Ranexa, Metoprolol, and Imdur CAD Hx of two coronary stents placed at [facility] in 2012. Pt admits GA at that time. Patient placed on Plavix, ASA and Statin last admission in 2014. Hold Plavix, ASA for possible blood loss. Continue Crestor 20mg PO HS HTN Pt has been normo/hypotensive since admission Hold home Losartan Resp: O2 sat: 100% on room air GI: GI consult: Dr. Luong, help appreciated - No evidence of acute GI hemorrhage - EGD/colonoscopy scheduled for tomorrow (08/30) AM - continue ferrlecit IV Constipation - Miralax 17g PO QD Hem/Onc: Hgb: 6.7 on 08/29 AM labs - transfuse two units PRBCs - f/u CBC one hour after second unit - f/u FOBT Iron deficiency Anemia - Iron, Transferrin, % saturation, TIBC all low - Ferrlecit 125mg IV Daily x 12 doses Endo: Hx of uncontrolled DM BG: elevated, but downtrending Hgb A1C: 10 - Lantus 10 units HS - ISS (high) Urinalysis (08/28/16): 3+ glucose, protein negative /Renal: BUN/Cr: WNL Integumentary: Non-healing, > 5cm ulcer noted on right ankle, Chronic venous stasis noted bilaterally Rt ankle Xray (08/28/16): Medial ankle ulcer appearing more extensive. Prior smooth medial distal tibial periosteal reaction. Contiguous right osteomyelitis cannot be excluded. Consider MRI (see full report) Dr. Bishop, ID consult: help appreciated - Recommend Vascular surgery consult, as pt with PVD at high risk for gangrene - Wound cx (08/28/16): Positive for Gram negative von, Corynebacterium - Blood Cx (08/28/16): No growth x 24 hours - Zosyn IVPB Dr. Lugo, Vascular surgery, consulted: - f/u reccs Wound care consult, help appreciated: -f/u reccs Prophylaxis: VTE: Holding anticoagulation due to acute drop in H&H SCDs held due to non-healing wounds on LE GI: Protonix 40mg IV Daily D/W Dr. Cody Ferguson, PGY-1 <Cody,Eddy S - Last Filed: 08/29/16 17:28> Meds - Medications Medications: Current Medications Ferric Sodium Gluconate Complex (Ferrlecit) 125 mg IVPB DAILY [facility] Stop: 09/06/16 10:01 Last Admin: 08/29/16 10:27 Dose: 125 mg Piperacillin Sod/Tazobactam (Sod 3.375 gm/ Sodium Chloride) 100 mls @ 200 mls/ hr IVPB Q6H [facility] Last Admin: 08/29/16 12:56 Dose: 200 mls/hr Insulin Glargine (Lantus) 10 unit SC [facility] Last Admin: 08/28/16 21:44 Dose: 10 units Insulin Human Regular (Novolin R) 0 unit SC [facility] PRN Reason: Protocol Last Admin: 08/29/16 16:34 Dose: 4 unit Isosorbide Mononitrate (Imdur) 30 mg PO DAILY [facility] Pantoprazole Sodium (Protonix Inj) 40 mg IVP DAILY [facility] Last Admin: 08/29/16 15:07 Dose: 40 mg Ranolazine (Ranexa) 500 mg PO BID [place] Rosuvastatin Calcium (Crestor) 20 mg PO HS [facility] Last Admin: 08/28/16 21:44 Dose: 20 mg Results - Vital Signs Recent Vital Signs: Last Vital Signs Temp 97.6 F 08/29/16 16:00 Pulse 68 08/29/16 16:02 Resp 20 08/29/16 16:02 BP 136/80 08/29/16 15:59 Pulse Ox 98 08/29/16 16:02 - Labs Result Diagrams: 08/29/16 06:43 08/29/16 01:49 Labs: Laboratory Results - last 24 hr 08/28/16 08/28/16 08/28/16 05:57 16:49 17:07 WBC RBC Hgb Hct MCV MCH MCHC RDW Plt Count MPV Neut % (Auto) Lymph % (Auto) [place] % (Auto) Eos % (Auto) Baso % (Auto) Neut # Lymph # [place] # Eos # Baso # Neutrophils % (Manual) Lymphocytes % (Manual) Monocytes % (Manual) Eosinophils % (Manual) Platelet Estimate Polychromasia Hypochromasia (manual) Poikilocytosis (manual Anisocytosis (manual) Microcytosis (manual) Ovalocytes [place] Cells Sodium Potassium Chloride Carbon Dioxide Anion Gap BUN Creatinine Est GFR ( Amer) Est GFR (Non-Af Amer) POC Glucose (mg/dL) 358 H Random Glucose Calcium Total Bilirubin AST ALT Alkaline Phosphatase Total Creatine Kinase CK-MB (Mass) Troponin I, Quant Total Protein Albumin Globulin Albumin/Globulin Ratio Urine Color Urine Clarity Urine pH Ur Specific [place] Urine Protein Urine Glucose (UA) Urine Ketones Urine Blood Urine Nitrate Urine Bilirubin Urine Urobilinogen Ur Leukocyte Esterase Urine WBC (Auto) Urine RBC (Auto) Ur Squamous Epith Cells Urine Bacteria Hepatitis A IgM Ab Negative Hep Bs Antigen Negative Hep B Core IgM Ab Negative Hepatitis C Antibody Negative Blood Type Cancelled A POSITIVE Antibody Screen Cancelled Negative 08/28/16 08/28/16 08/28/16 18:42 18:50 21:01 WBC RBC Hgb Hct MCV MCH MCHC RDW Plt Count MPV Neut % (Auto) Lymph % (Auto) [place] % (Auto) Eos % (Auto) Baso % (Auto) Neut # Lymph # [place] # Eos # Baso # Neutrophils % (Manual) Lymphocytes % (Manual) Monocytes % (Manual) Eosinophils % (Manual) Platelet Estimate Polychromasia Hypochromasia (manual) Poikilocytosis (manual Anisocytosis (manual) Microcytosis (manual) Ovalocytes [place] Cells Sodium Potassium Chloride Carbon Dioxide Anion Gap BUN Creatinine Est GFR ( Amer) Est GFR (Non-Af Amer) POC Glucose (mg/dL) 375 H 259 H Random Glucose Calcium Total Bilirubin AST ALT Alkaline Phosphatase Total Creatine Kinase 41 L CK-MB (Mass) 4.06 H Troponin I, Quant 0.9390 H* Total Protein Albumin Globulin Albumin/Globulin Ratio Urine Color Urine Clarity Urine pH Ur Specific [place] Urine Protein Urine Glucose (UA) Urine Ketones Urine Blood Urine Nitrate Urine Bilirubin Urine Urobilinogen Ur Leukocyte Esterase Urine WBC (Auto) Urine RBC (Auto) Ur Squamous Epith Cells Urine Bacteria Hepatitis A IgM Ab Hep Bs Antigen Hep B Core IgM Ab Hepatitis C Antibody Blood Type Antibody Screen 08/28/16 08/29/16 08/29/16 21:28 01:49 06:14 WBC RBC Hgb Hct MCV MCH MCHC RDW Plt Count MPV Neut % (Auto) Lymph % (Auto) [place] % (Auto) Eos % (Auto) Baso % (Auto) Neut # Lymph # [place] # Eos # Baso # Neutrophils % (Manual) Lymphocytes % (Manual) Monocytes % (Manual) Eosinophils % (Manual) Platelet Estimate Polychromasia Hypochromasia (manual) Poikilocytosis (manual Anisocytosis (manual) Microcytosis (manual) Ovalocytes [place] Cells Sodium 136 Potassium 3.7 Chloride 103 Carbon Dioxide 22 Anion Gap 14 BUN 14 Creatinine 0.9 Est GFR ( Amer) > 60 Est GFR (Non-Af Amer) > 60 POC Glucose (mg/dL) 210 H Random Glucose 180 H Calcium 8.5 L Total Bilirubin 0.9 AST 18 ALT 19 L Alkaline Phosphatase 94 Total Creatine Kinase 36 L CK-MB (Mass) 4.08 H Troponin I, Quant 1.2400 H* Total Protein 6.0 L Albumin 2.5 L D Globulin 3.5 Albumin/Globulin Ratio 0.7 L Urine Color Yellow Urine Clarity Clear Urine pH 5.0 Ur Specific [place] 1.013 Urine Protein Negative Urine Glucose (UA) 3+ H Urine Ketones Negative Urine Blood Negative Urine Nitrate Negative Urine Bilirubin Negative Urine Urobilinogen Normal Ur Leukocyte Esterase Neg Urine WBC (Auto) < 1 Urine RBC (Auto) < 1 Ur Squamous Epith Cells < 1 Urine Bacteria Rare Hepatitis A IgM Ab Hep Bs Antigen Hep B Core IgM Ab Hepatitis C Antibody Blood Type Antibody Screen 08/29/16 08/29/16 08/29/16 06:43 09:45 11:29 WBC 3.1 L RBC 3.13 L Hgb 7.8 L Hct 22.9 L MCV 73.2 L MCH 24.8 L MCHC 33.9 RDW 19.9 H Plt Count 147 MPV 8.7 Neut % (Auto) 38.0 L Lymph % (Auto) 37.8 [place] % (Auto) 20.5 H Eos % (Auto) 3.4 Baso % (Auto) 0.3 Neut # 1.2 L Lymph # 1.2 [place] # 0.6 Eos # 0.1 Baso # 0.0 Neutrophils % (Manual) 39 L Lymphocytes % (Manual) 40 Monocytes % (Manual) 19 H Eosinophils % (Manual) 2 Platelet Estimate Normal Polychromasia Slight Hypochromasia (manual) Slight Poikilocytosis (manual Slight Anisocytosis (manual) Slight Microcytosis (manual) Slight Ovalocytes Slight [place] Cells Slight Sodium Potassium Chloride Carbon Dioxide Anion Gap BUN Creatinine Est GFR ( Amer) Est GFR (Non-Af Amer) POC Glucose (mg/dL) 216 H Random Glucose Calcium Total Bilirubin AST ALT Alkaline Phosphatase Total Creatine Kinase 31 L CK-MB (Mass) 2.42 Troponin I, Quant 0.9860 H* Total Protein Albumin Globulin Albumin/Globulin Ratio Urine Color Urine Clarity Urine pH Ur Specific [place] Urine Protein Urine Glucose (UA) Urine Ketones Urine Blood Urine Nitrate Urine Bilirubin Urine Urobilinogen Ur Leukocyte Esterase Urine WBC (Auto) Urine RBC (Auto) Ur Squamous Epith Cells Urine Bacteria Hepatitis A IgM Ab Hep Bs Antigen Hep B Core IgM Ab Hepatitis C Antibody Blood Type Antibody Screen 08/29/16 16:31 WBC RBC Hgb Hct MCV MCH MCHC RDW Plt Count MPV Neut % (Auto) Lymph % (Auto) [place] % (Auto) Eos % (Auto) Baso % (Auto) Neut # Lymph # [place] # Eos # Baso # Neutrophils % (Manual) Lymphocytes % (Manual) Monocytes % (Manual) Eosinophils % (Manual) Platelet Estimate Polychromasia Hypochromasia (manual) Poikilocytosis (manual Anisocytosis (manual) Microcytosis (manual) Ovalocytes [place] Cells Sodium Potassium Chloride Carbon Dioxide Anion Gap BUN Creatinine Est GFR ( Amer) Est GFR (Non-Af Amer) POC Glucose (mg/dL) 229 H Random Glucose Calcium Total Bilirubin AST ALT Alkaline Phosphatase Total Creatine Kinase CK-MB (Mass) Troponin I, Quant Total Protein Albumin Globulin Albumin/Globulin Ratio Urine Color Urine Clarity Urine pH Ur Specific [place] Urine Protein Urine Glucose (UA) Urine Ketones Urine Blood Urine Nitrate Urine Bilirubin Urine Urobilinogen Ur Leukocyte Esterase Urine WBC (Auto) Urine RBC (Auto) Ur Squamous Epith Cells Urine Bacteria Hepatitis A IgM Ab Hep Bs Antigen Hep B Core IgM Ab Hepatitis C Antibody Blood Type Antibody Screen Attending/Attestation - Attestation I have personally seen and examined this patient.: Yes I have fully participated in the care of the patient.: Yes I have reviewed all pertinent clinical information: Yes Notes (Text): 08/29/16 17:25 Patient seen and examined Patient is a 71yo male with PMHx significant for CAD s/p PCI with 2 stents placed, HTN, DM, diabetic foot ulcers/venous stasis ulcers, tobacco and distant alcohol abuse who presented to the ED complaining of a non-healing right foot wound. Patient transferred to ICU for elevated troponins and anemia. Echocardiogram showed normal ejection fraction Patient seen by cardiology and feels elevated troponin is secondary to demand ischemia Vascular consult Continue treatment as per ID Continue to monitor in ICU
--- NOTE | 2016-08-29 11:57 | CARD ---
APPROVED REPORT EKG Measurement Heart [id number] [place] 150P71 [id number] <Conclusion> Normal sinus rhythm with sinus arrhythmia Nonspecific ST and T wave abnormality Abnormal ECG
--- NOTE | 2016-08-29 11:57 | CARD ---
APPROVED REPORT EKG Measurement Heart [id number] [place] 150P56 [id number] <Conclusion> Normal sinus rhythm Mild QRS widening Nonspecific T wave abnormality Abnormal ECG
--- NOTE | 2016-08-29 15:12 | CP.PCM.CON ---
History of Present Illness - History of Present Illness History of Present Illness: Called by Dr. Guerrero to eval this patient whom was seen by us in office. Patient is a 71 y/o with hx of chronic R. ankle wound/ulcer and has become worse with with development of foul odor and discharge: On further work-up patient was found to have severe anemia, ST changes on EKG changes suspious for ischemia with troponin 0.9 >1,2 > 0.9 and is s/p PRBCs and off DAPT. * Uncontrolled DM: A1c 10 * Active smoker * Lives alone with support from children; limited to in home only Medical hx: HTN, DM, Smoker, PMH: COPD, CAD (s/p PCI with 2 stents 5 years ago), venous stasis dermatitis with ulcer, HTN, uncontrolled DM, diabetic foot ulcers, and tobacco abuse. Stenting x 2 in 05/2012 and 07/2012, The patient's first PCI was 05/28/[address] De (at [facility]) a 3.0 x 12 TOVA was placed in the proximal left circumflex. The second PCI was 08/05/12, again with Dr. De. The second stent was a 3.0 x 18 TOVA placed in the proximal RCA. Social: 2 ppd smoking x 61 years, heavy alcohol use (quit at age 45), denies all illicit drug use Allergy: NKDA FHx: denies Stress test 04/2014: Normal nuclear perfusion, Normal LVEF Review of Systems - Review of Systems All systems: reviewed and no additional remarkable complaints except Past Patient History - Tetanus Immunizations Tetanus Immunization: Unknown - Past Medical History & Family History Past Medical History?: No - Past Social History Smoking Status: Former Smoker - CARDIAC Hx Heart Attack: Yes Hx Hypercholesterolemia: Yes Hx Hypertension: Yes Other/Comment: stent placement - PULMONARY Hx Respiratory Disorders: No - NEUROLOGICAL Hx Paralysis: No - HEENT Hx HEENT Problems: No - RENAL Hx Chronic Kidney Disease: Yes Hx Kidney Stones: Yes - ENDOCRINE/METABOLIC Hx Endocrine Disorders: Yes Hx Diabetes Mellitus Type 2: Yes - HEMATOLOGICAL/ONCOLOGICAL Hx Anemia: Yes Hx Blood Transfusions: No Hx Blood Transfusion Reaction: No - INTEGUMENTARY Hx Dermatological Problems: Yes Hx Cellulitis: Yes - MUSCULOSKELETAL/RHEUMATOLOGICAL Hx Musculoskeletal Disorders: Yes Hx Back Pain: Yes Hx Falls: Yes Hx Spinal Stenosis: Yes - GASTROINTESTINAL Hx Gastrointestinal Disorders: No - GENITOURINARY/GYNECOLOGICAL Hx Genitourinary Disorders: No Hx Prostate Problems: Yes - PSYCHIATRIC Hx Substance Use: No - SURGICAL HISTORY Hx Coronary Stent: Yes - ANESTHESIA Hx Anesthesia: Yes Hx Anesthesia Reactions: No Hx Malignant Hyperthermia: No Meds Allergies/Adverse Reactions: Allergies Allergy/AdvReac Type Severity Reaction Status Date / Time No Known Allergies Allergy Unverified 05/03/15 14:16 - Medications Medications: Current Medications Ferric Sodium Gluconate Complex (Ferrlecit) 125 mg IVPB DAILY [facility] Stop: 09/06/16 10:01 Last Admin: 08/29/16 10:27 Dose: 125 mg Piperacillin Sod/Tazobactam (Sod 3.375 gm/ Sodium Chloride) 100 mls @ 200 mls/ hr IVPB Q6H [facility] Last Admin: 08/29/16 12:56 Dose: 200 mls/hr Insulin Glargine (Lantus) 10 unit SC [facility] Last Admin: 08/28/16 21:44 Dose: 10 units Insulin Human Regular (Novolin R) 0 unit SC [facility] PRN Reason: Protocol Last Admin: 08/29/16 11:55 Dose: Not Given Pantoprazole Sodium (Protonix Inj) 40 mg IVP DAILY [facility] Last Admin: 08/29/16 15:07 Dose: 40 mg Rosuvastatin Calcium (Crestor) 20 mg PO [facility] Last Admin: 08/28/16 21:44 Dose: 20 mg Physical Exam - Constitutional Appears: Chronically Ill - Head Exam Head Exam: ATRAUMATIC, NORMAL INSPECTION, NORMOCEPHALIC - Eye Exam Eye Exam: EOMI, Normal appearance, PERRL - ENT Exam ENT Exam: Mucous Membranes Moist - Neck Exam Neck exam: Negative for: Tenderness, Thyromegaly - Respiratory Exam Respiratory Exam: Clear to Auscultation Bilateral, NORMAL BREATHING PATTERN. absent: Wheezes - Cardiovascular Exam Cardiovascular Exam: REGULAR RHYTHM, +S1, +S2, Systolic Murmur (soft, normal A2 , RUSB). absent: +S4 - GI/Abdominal Exam GI & Abdominal Exam: Normal Bowel Sounds, Soft. absent: Tenderness - Extremities Exam Extremities exam: Negative for: calf tenderness, normal inspection (R. LE venous stasis changes with bandage applied to area of R. ankle ulcer, L. DP ++, RDP weak) Results - Vital Signs Recent Vital Signs: Last Vital Signs Temp 97.5 F L 08/29/16 14:51 Pulse 64 08/29/16 14:51 Resp 16 08/29/16 14:51 BP 147/63 08/29/16 14:51 Pulse Ox 100 08/29/16 14:23 - Labs Result Diagrams: 08/29/16 06:43 08/29/16 01:49 Labs: Laboratory Results - last 24 hr 08/28/16 08/28/16 08/28/16 05:57 16:49 17:07 WBC RBC Hgb Hct MCV MCH MCHC RDW Plt Count MPV Neut % (Auto) Lymph % (Auto) [place] % (Auto) Eos % (Auto) Baso % (Auto) Neut # Lymph # [place] # Eos # Baso # Neutrophils % (Manual) Lymphocytes % (Manual) Monocytes % (Manual) Eosinophils % (Manual) Platelet Estimate Polychromasia Hypochromasia (manual) Poikilocytosis (manual Anisocytosis (manual) Microcytosis (manual) Ovalocytes Simon Cells Sodium Potassium Chloride Carbon Dioxide Anion Gap BUN Creatinine Est GFR ( Amer) Est GFR (Non-Af Amer) POC Glucose (mg/dL) 358 H Random Glucose Calcium Total Bilirubin AST ALT Alkaline Phosphatase Total Creatine Kinase CK-MB (Mass) Troponin I, Quant Total Protein Albumin Globulin Albumin/Globulin Ratio Urine Color Urine Clarity Urine pH Ur Specific [place] Urine Protein Urine Glucose (UA) Urine Ketones Urine Blood Urine Nitrate Urine Bilirubin Urine Urobilinogen Ur Leukocyte Esterase Urine WBC (Auto) Urine RBC (Auto) Ur Squamous Epith Cells Urine Bacteria Hepatitis A IgM Ab Negative Hep Bs Antigen Negative Hep B Core IgM Ab Negative Hepatitis C Antibody Negative Blood Type Cancelled A POSITIVE Antibody Screen Cancelled Negative 08/28/16 08/28/16 08/28/16 18:42 18:50 21:01 WBC RBC Hgb Hct MCV MCH MCHC RDW Plt Count MPV Neut % (Auto) Lymph % (Auto) [place] % (Auto) Eos % (Auto) Baso % (Auto) Neut # Lymph # [place] # Eos # Baso # Neutrophils % (Manual) Lymphocytes % (Manual) Monocytes % (Manual) Eosinophils % (Manual) Platelet Estimate Polychromasia Hypochromasia (manual) Poikilocytosis (manual Anisocytosis (manual) Microcytosis (manual) Ovalocytes Simon Cells Sodium Potassium Chloride Carbon Dioxide Anion Gap BUN Creatinine Est GFR ( Amer) Est GFR (Non-Af Amer) POC Glucose (mg/dL) 375 H 259 H Random Glucose Calcium Total Bilirubin AST ALT Alkaline Phosphatase Total Creatine Kinase 41 L CK-MB (Mass) 4.06 H Troponin I, Quant 0.9390 H* Total Protein Albumin Globulin Albumin/Globulin Ratio Urine Color Urine Clarity Urine pH Ur Specific [place] Urine Protein Urine Glucose (UA) Urine Ketones Urine Blood Urine Nitrate Urine Bilirubin Urine Urobilinogen Ur Leukocyte Esterase Urine WBC (Auto) Urine RBC (Auto) Ur Squamous Epith Cells Urine Bacteria Hepatitis A IgM Ab Hep Bs Antigen Hep B Core IgM Ab Hepatitis C Antibody Blood Type Antibody Screen 08/28/16 08/29/16 08/29/16 21:28 01:49 06:14 WBC RBC Hgb Hct MCV MCH MCHC RDW Plt Count MPV Neut % (Auto) Lymph % (Auto) [place] % (Auto) Eos % (Auto) Baso % (Auto) Neut # Lymph # [place] # Eos # Baso # Neutrophils % (Manual) Lymphocytes % (Manual) Monocytes % (Manual) Eosinophils % (Manual) Platelet Estimate Polychromasia Hypochromasia (manual) Poikilocytosis (manual Anisocytosis (manual) Microcytosis (manual) Ovalocytes [place] Cells Sodium 136 Potassium 3.7 Chloride 103 Carbon Dioxide 22 Anion Gap 14 BUN 14 Creatinine 0.9 Est GFR ( Amer) > 60 Est GFR (Non-Af Amer) > 60 POC Glucose (mg/dL) 210 H Random Glucose 180 H Calcium 8.5 L Total Bilirubin 0.9 AST 18 ALT 19 L Alkaline Phosphatase 94 Total Creatine Kinase 36 L CK-MB (Mass) 4.08 H Troponin I, Quant 1.2400 H* Total Protein 6.0 L Albumin 2.5 L D Globulin 3.5 Albumin/Globulin Ratio 0.7 L Urine Color Yellow Urine Clarity Clear Urine pH 5.0 Ur Specific [place] 1.013 Urine Protein Negative Urine Glucose (UA) 3+ H Urine Ketones Negative Urine Blood Negative Urine Nitrate Negative Urine Bilirubin Negative Urine Urobilinogen Normal Ur Leukocyte Esterase Neg Urine WBC (Auto) < 1 Urine RBC (Auto) < 1 Ur Squamous Epith Cells < 1 Urine Bacteria Rare Hepatitis A IgM Ab Hep Bs Antigen Hep B Core IgM Ab Hepatitis C Antibody Blood Type Antibody Screen 08/29/16 08/29/16 08/29/16 06:43 09:45 11:29 WBC 3.1 L RBC 3.13 L Hgb 7.8 L Hct 22.9 L MCV 73.2 L MCH 24.8 L MCHC 33.9 RDW 19.9 H Plt Count 147 MPV 8.7 Neut % (Auto) 38.0 L Lymph % (Auto) 37.8 [place] % (Auto) 20.5 H Eos % (Auto) 3.4 Baso % (Auto) 0.3 Neut # 1.2 L Lymph # 1.2 [place] # 0.6 Eos # 0.1 Baso # 0.0 Neutrophils % (Manual) 39 L Lymphocytes % (Manual) 40 Monocytes % (Manual) 19 H Eosinophils % (Manual) 2 Platelet Estimate Normal Polychromasia Slight Hypochromasia (manual) Slight Poikilocytosis (manual Slight Anisocytosis (manual) Slight Microcytosis (manual) Slight Ovalocytes Slight Simon Cells Slight Sodium Potassium Chloride Carbon Dioxide Anion Gap BUN Creatinine Est GFR ( Amer) Est GFR (Non-Af Amer) POC Glucose (mg/dL) 216 H Random Glucose Calcium Total Bilirubin AST ALT Alkaline Phosphatase Total Creatine Kinase 31 L CK-MB (Mass) 2.42 Troponin I, Quant 0.9860 H* Total Protein Albumin Globulin Albumin/Globulin Ratio Urine Color Urine Clarity Urine pH Ur Specific [place] Urine Protein Urine Glucose (UA) Urine Ketones Urine Blood Urine Nitrate Urine Bilirubin Urine Urobilinogen Ur Leukocyte Esterase Urine WBC (Auto) Urine RBC (Auto) Ur Squamous Epith Cells Urine Bacteria Hepatitis A IgM Ab Hep Bs Antigen Hep B Core IgM Ab Hepatitis C Antibody Blood Type Antibody Screen - EKG Data EKG Interpreted by: Myself Assessment & Plan - Assessment and Plan (Free Text) Assessment: 1. CAD 2. Severe anemia 3. Uncontrolled DM 4. Active smoker 5. R. ankle acute on chronic wound/ulcer: possible osteomyelitis All EkGs reviewed 08/28/16 x2 and 08/29/16 * 1st EKG showed subtle ST changes with a heart rate of 98, otherwise NSR * subsequent EKGs show normalization of ST with improvement of heart rate * ECHO done 08/29/16: directly seen by me: Normal LVEF ~ 55%, Normal wall motion , Grade 2 diastolic dysfunction, no significant valve lesions except mild AI, Mild MR, TR Minimal rise and fall of troponin 0.9 >1.2 0.9 is likely due to demand ischemia from severe anemia and not a high grade epicardial lesion given relatively normal wall motion. he is currently without any sx's of angina and there are no signs of volume overload or CHF. R. DP pulse is weak; L. DP pulse is normal: Cannot exclude PAD of RLE consider CTA abdomen/pelvis/LE to evaluate further, cont wound care and ABX He denies any gross blood loss: and has been compliant with DAPT which are now appropriately held; I agree with GI w/u as planned. No need for cardiac cath at this time: patient may proceed with GI eval with appropriate acceptable risk: I would suggest optimize medial therapy with IMDUR , RANEXA and METOPROLOL. resume ASA or Plavix or both if safe after GI eval.
[2016-08-29] MEDS ORDERED: Bisacodyl 5mg EC Tab PO ONE (16:09)
[2016-08-29] MEDS ORDERED: Peg-Electrolyte Oral Soln 4L (Golytely) PO ONE (16:09)
--- NOTE | 2016-08-29 17:29 | CARD ---
APPROVED REPORT EXAM: Two-dimensional and M-mode echocardiogram with Doppler and color Doppler. Other Information Quality : GoodRhythm : NSR INDICATION CAD Chest Pain RISK FACTORS Hypertension Hyperlipidemia Diabetes M-Mode DIMENSIONS RVDd2.73 (2.1-3.2cm)Left Atrium (MM)3.21 (2.5-4.0cm) IVSd1.03 (0.7-1.1cm)Aortic Root3.54 (2.2-3.7cm) LVDd5.02 (4.0-5.6cm)Aortic Cusp Exc.2.18 (1.5-2.0cm) PWd1.07 (0.7-1.1cm)FS (%) 29 % LVDs3.54 (2.0-3.8cm)LVEF (%)56 (>50%) Aortic Valve AoV Peak Kecvktrg910.6cm/Ming Peak GR.5mmHgAI P 1/2 Vpev366xm Mitral Valve MV E Bfasxbqg10.7cm/sMV A Vzydmcjf87.8cm/sE/A ratio1.5 TDI E/Lateral E'0.0E/Medial E'0.0 Tricuspid Valve TR Peak Dzeivrnd077ds/sTR Peak Gr.[id number] LEFT VENTRICLE The left ventricle is normal size. There is normal left ventricular wall thickness. The left ventricular function is mildly reduced The left ventricular ejection fraction is about 45% No regional wall motion abnormalities noted. Transmitral Doppler flow pattern is Grade II-pseudonormal filling dynamics. No left ventricle thrombus noted on this study. There is no ventricular septal defect visualized. There is no left ventricular aneurysm. There is no mass noted in the left ventricle. RIGHT VENTRICLE The right ventricle is normal size. There is normal right ventricular wall thickness. The right ventricular systolic function is normal. ATRIA The left atrium size is normal. The right atrium size is normal. The interatrial septum is intact with no evidence for an atrial septal defect. AORTIC VALVE The aortic valve is normal in structure and function. Mild aortic regurgitation is present. There is no aortic valvular stenosis. There is no aortic valvular vegetation. MITRAL VALVE The mitral valve is normal in structure and function. There is no evidence of mitral valve prolapse. There is no mitral valve stenosis. There is mild mitral valve regurgitation noted. TRICUSPID VALVE The tricuspid valve is normal in structure and function. There is mildtricuspid valve regurgitation noted. Estimated PA systolic pressure is 42 mm Hg There is no tricuspid valve prolapse or vegetation. There is no tricuspid valve stenosis. PULMONIC VALVE The pulmonary valve is normal in structure and function. There is no pulmonic valvular regurgitation. There is no pulmonic valvular stenosis. GREAT VESSELS The aortic root is normal in size. The ascending aorta is normal in size. The pulmonary artery is normal. The IVC is normal in size and collapses >50% with inspiration. PERICARDIAL EFFUSION The pericardium appears normal. There is no pleural effusion. <Conclusion> Mildly reduced Left ventricular systolic function. Mild aortic regurgitation.
[2016-08-29] MEDS: Ranolazine 500 mg Extended Release Tablets PO SCH (17:41)
--- NOTE | 2016-08-29 17:47 | CP.PCM.PN ---
Subjective - Date & Time of Evaluation Date of Evaluation: 08/29/16 Time of Evaluation: 10:00 - Subjective Subjective: events noted seen in icu cardio eval in progress cont iv antibiotics Objective - Vital Signs/Intake and Output Vital Signs (last 24 hours): Temp Pulse Resp BP Pulse Ox 97.6 F 68 20 136/80 98 08/29/16 16:00 08/29/16 16:02 08/29/16 16:02 08/29/16 15:59 08/29/16 16:02 Intake and Output: 08/29/16 08/29/16 06:59 18:59 Intake Total 975 1250 Output Total 600 500 Balance 375 750 - Medications Medications: Current Medications Ferric Sodium Gluconate Complex (Ferrlecit) 125 mg IVPB DAILY [facility] Stop: 09/06/16 10:01 Last Admin: 08/29/16 10:27 Dose: 125 mg Piperacillin Sod/Tazobactam (Sod 3.375 gm/ Sodium Chloride) 100 mls @ 200 mls/ hr IVPB Q6H [facility] Last Admin: 08/29/16 17:28 Dose: 200 mls/hr Insulin Glargine (Lantus) 10 unit SC [facility] Last Admin: 08/28/16 21:44 Dose: 10 units Insulin Human Regular (Novolin R) 0 unit SC [facility] PRN Reason: Protocol Last Admin: 08/29/16 16:34 Dose: 4 unit Isosorbide Mononitrate (Imdur) 30 mg PO DAILY [facility] Last Admin: 08/29/16 17:40 Dose: 30 mg Pantoprazole Sodium (Protonix Inj) 40 mg IVP DAILY [facility] Last Admin: 08/29/16 15:07 Dose: 40 mg Ranolazine (Ranexa) 500 mg PO BID [facility] Last Admin: 08/29/16 17:41 Dose: 500 mg Rosuvastatin Calcium (Crestor) 20 mg PO [facility] Last Admin: 08/28/16 21:44 Dose: 20 mg - Labs Labs: 08/29/16 06:43 08/29/16 01:49 - Constitutional Appears: Non-toxic, Chronically Ill - Head Exam Head Exam: NORMOCEPHALIC - Eye Exam Eye Exam: absent: Scleral icterus - ENT Exam ENT Exam: Mucous Membranes Dry - Neck Exam Neck Exam: absent: Lymphadenopathy - Respiratory Exam Respiratory Exam: Decreased Breath Sounds, Rhonchi - Cardiovascular Exam Cardiovascular Exam: REGULAR RHYTHM, +S1, +S2 - GI/Abdominal Exam GI & Abdominal Exam: Distended, Soft. absent: Tenderness Assessment and Plan - Assessment and Plan (Free Text) Plan: ACS protocol MRI and vascular eval for ankle when stable cont iv r x
--- NOTE | 2016-08-29 18:28 | CP.PCM.CON ---
History of Present Illness - History of Present Illness History of Present Illness: Date of consult: 08/29/2016 Chief complaint: large, purulent, nonhealing medial malleolar ulcer The patient is a 71 y/o male with medical history of uncontrolled DM, CAD s/p PCI with 2 stents placed, CO (3 years ago), and HTN. Vascular surgery consulted for large, purulent, nonhealing right foot ulcer of approximately 1-2 month duration. The ulcer is purulent, malodorous, discolored, and has a 6 cm crater in the middle. Skin changes associated with peripheral vascular disease are evident on both distal lower extremities. The patient noticed the ulcers 1-2 months ago and was brought in to the ER by his daughter on the for evaluation because she noticed the odor. The patient states that he has a history of diabetic foot ulcers/venous stasis ulcers. GI, cardiology, and hematology/oncology were consulted to evaluate for possible iron deficiency anemia secondary to GI bleed/cancer, chest pain, and iron deficiency anemia respectively. GI plans to do an EGD on the patient on . Today, the patient had demand ischemia for which EKG and cardiac enzymes were positive. Stress test revealed normal perfusion and normal LVEF. Past medical history: uncontrolled diabetes mellitus, CAD s/p PCI with 2 stents placed, CO (3 years ago), hypertension Surgeries/Hospitalizations: PCI with 2 stents placed Allergies: NKDA Social history: The patient smokes 1/2 ppd but states that he has cut down from 3 ppd. He has a distant history of alcohol abuse stating that he drank everyday up until the age of 50. He denies history of recreational drug abuse. Family history: no pertinent family history Review of systems: General: denies fever, chills, headache, dizziness Cardiac: denies chest pain, palpitations Pulmonary: denies shortness of breath, cough MSK: denies changes in motor strength Integumentary/Breast: reports presence large, malodorous, draining ulcer on right medial malleolus Neurologic: denies changes in sensation Review of Systems - Review of Systems Review of Systems: 12 pt ROS carried out, unremarkable; except as stated in HPI Past Patient History - Tetanus Immunizations Tetanus Immunization: Unknown - Past Medical History & Family History Past Medical History?: No - Past Social History Smoking Status: Former Smoker - CARDIAC Hx Heart Attack: Yes Hx Hypercholesterolemia: Yes Hx Hypertension: Yes Other/Comment: stent placement - PULMONARY Hx Respiratory Disorders: No - NEUROLOGICAL Hx Paralysis: No - HEENT Hx HEENT Problems: No - RENAL Hx Chronic Kidney Disease: Yes Hx Kidney Stones: Yes - ENDOCRINE/METABOLIC Hx Endocrine Disorders: Yes Hx Diabetes Mellitus Type 2: Yes - HEMATOLOGICAL/ONCOLOGICAL Hx Anemia: Yes Hx Blood Transfusions: No Hx Blood Transfusion Reaction: No - INTEGUMENTARY Hx Dermatological Problems: Yes Hx Cellulitis: Yes - MUSCULOSKELETAL/RHEUMATOLOGICAL Hx Musculoskeletal Disorders: Yes Hx Back Pain: Yes Hx Falls: Yes Hx Spinal Stenosis: Yes - GASTROINTESTINAL Hx Gastrointestinal Disorders: No - GENITOURINARY/GYNECOLOGICAL Hx Genitourinary Disorders: No Hx Prostate Problems: Yes - PSYCHIATRIC Hx Substance Use: No - SURGICAL HISTORY Hx Coronary Stent: Yes - ANESTHESIA Hx Anesthesia: Yes Hx Anesthesia Reactions: No Hx Malignant Hyperthermia: No Meds Allergies/Adverse Reactions: Allergies Allergy/AdvReac Type Severity Reaction Status Date / Time No Known Allergies Allergy Unverified 05/03/15 14:16 - Medications Medications: Current Medications Ferric Sodium Gluconate Complex (Ferrlecit) 125 mg IVPB DAILY [facility] Stop: 09/06/16 10:01 Last Admin: 08/29/16 10:27 Dose: 125 mg Piperacillin Sod/Tazobactam (Sod 3.375 gm/ Sodium Chloride) 100 mls @ 200 mls/ hr IVPB Q6H [facility] Last Admin: 08/29/16 17:28 Dose: 200 mls/hr Insulin Glargine (Lantus) 10 unit SC [facility] Last Admin: 08/28/16 21:44 Dose: 10 units Insulin Human Regular (Novolin R) 0 unit SC [facility] PRN Reason: Protocol Last Admin: 08/29/16 16:34 Dose: 4 unit Isosorbide Mononitrate (Imdur) 30 mg PO DAILY [facility] Last Admin: 08/29/16 17:40 Dose: 30 mg Pantoprazole Sodium (Protonix Inj) 40 mg IVP DAILY [facility] Last Admin: 08/29/16 15:07 Dose: 40 mg Ranolazine (Ranexa) 500 mg PO BID [facility] Last Admin: 08/29/16 17:41 Dose: 500 mg Rosuvastatin Calcium (Crestor) 20 mg PO [facility] Last Admin: 08/28/16 21:44 Dose: 20 mg Physical Exam - Constitutional Appears: Non-toxic, No Acute Distress - Respiratory Exam Respiratory Exam: NORMAL BREATHING PATTERN. absent: Rales, Rhonchi, Wheezes - Cardiovascular Exam Cardiovascular Exam: REGULAR RHYTHM, +S1, +S2. absent: Diastolic murmur, Gallop , Rubs, Systolic Murmur - Extremities Exam Additional comments: MSK/Extremities: large purulent nonhealing right foot ulcer, green purulent discharge, 6 cm crater in middle of ulcer, b/l discoloration, open draining wound, diminished peripheral pulses, chronic venous stasis changes noted on b/l legs - Neurological Exam Neurological exam: Alert - Psychiatric Exam Psychiatric exam: Normal Mood Results - Vital Signs Recent Vital Signs: Last Vital Signs Temp 97.6 F 08/29/16 16:00 Pulse 68 08/29/16 16:02 Resp 20 08/29/16 16:02 BP 136/80 08/29/16 15:59 Pulse Ox 98 08/29/16 16:02 - Labs Result Diagrams: 08/29/16 06:43 08/29/16 01:49 Labs: Laboratory Results - last 24 hr 08/28/16 08/28/16 08/28/16 05:57 16:49 17:07 WBC RBC Hgb Hct MCV MCH MCHC RDW Plt Count MPV Neut % (Auto) Lymph % (Auto) Miller % (Auto) Eos % (Auto) Baso % (Auto) Neut # Lymph # Miller # Eos # Baso # Neutrophils % (Manual) Lymphocytes % (Manual) Monocytes % (Manual) Eosinophils % (Manual) Platelet Estimate Polychromasia Hypochromasia (manual) Poikilocytosis (manual Anisocytosis (manual) Microcytosis (manual) Ovalocytes Kinsey Cells Sodium Potassium Chloride Carbon Dioxide Anion Gap BUN Creatinine Est GFR ( Amer) Est GFR (Non-Af Amer) POC Glucose (mg/dL) 358 H Random Glucose Calcium Total Bilirubin AST ALT Alkaline Phosphatase Total Creatine Kinase CK-MB (Mass) Troponin I, Quant Total Protein Albumin Globulin Albumin/Globulin Ratio Urine Color Urine Clarity Urine pH Ur Specific [place] Urine Protein Urine Glucose (UA) Urine Ketones Urine Blood Urine Nitrate Urine Bilirubin Urine Urobilinogen Ur Leukocyte Esterase Urine WBC (Auto) Urine RBC (Auto) Ur Squamous Epith Cells Urine Bacteria Hepatitis A IgM Ab Negative Hep Bs Antigen Negative Hep B Core IgM Ab Negative Hepatitis C Antibody Negative Blood Type Cancelled A POSITIVE Antibody Screen Cancelled Negative 08/28/16 08/28/16 08/28/16 18:42 18:50 21:01 WBC RBC Hgb Hct MCV MCH MCHC RDW Plt Count MPV Neut % (Auto) Lymph % (Auto) Miller % (Auto) Eos % (Auto) Baso % (Auto) Neut # Lymph # Miller # Eos # Baso # Neutrophils % (Manual) Lymphocytes % (Manual) Monocytes % (Manual) Eosinophils % (Manual) Platelet Estimate Polychromasia Hypochromasia (manual) Poikilocytosis (manual Anisocytosis (manual) Microcytosis (manual) Ovalocytes Kinsey Cells Sodium Potassium Chloride Carbon Dioxide Anion Gap BUN Creatinine Est GFR ( Amer) Est GFR (Non-Af Amer) POC Glucose (mg/dL) 375 H 259 H Random Glucose Calcium Total Bilirubin AST ALT Alkaline Phosphatase Total Creatine Kinase 41 L CK-MB (Mass) 4.06 H Troponin I, Quant 0.9390 H* Total Protein Albumin Globulin Albumin/Globulin Ratio Urine Color Urine Clarity Urine pH Ur Specific [place] Urine Protein Urine Glucose (UA) Urine Ketones Urine Blood Urine Nitrate Urine Bilirubin Urine Urobilinogen Ur Leukocyte Esterase Urine WBC (Auto) Urine RBC (Auto) Ur Squamous Epith Cells Urine Bacteria Hepatitis A IgM Ab Hep Bs Antigen Hep B Core IgM Ab Hepatitis C Antibody Blood Type Antibody Screen 08/28/16 08/29/16 08/29/16 21:28 01:49 06:14 WBC RBC Hgb Hct MCV MCH MCHC RDW Plt Count MPV Neut % (Auto) Lymph % (Auto) Miller % (Auto) Eos % (Auto) Baso % (Auto) Neut # Lymph # Miller # Eos # Baso # Neutrophils % (Manual) Lymphocytes % (Manual) Monocytes % (Manual) Eosinophils % (Manual) Platelet Estimate Polychromasia Hypochromasia (manual) Poikilocytosis (manual Anisocytosis (manual) Microcytosis (manual) Ovalocytes Kinsey Cells Sodium 136 Potassium 3.7 Chloride 103 Carbon Dioxide 22 Anion Gap 14 BUN 14 Creatinine 0.9 Est GFR ( Amer) > 60 Est GFR (Non-Af Amer) > 60 POC Glucose (mg/dL) 210 H Random Glucose 180 H Calcium 8.5 L Total Bilirubin 0.9 AST 18 ALT 19 L Alkaline Phosphatase 94 Total Creatine Kinase 36 L CK-MB (Mass) 4.08 H Troponin I, Quant 1.2400 H* Total Protein 6.0 L Albumin 2.5 L D Globulin 3.5 Albumin/Globulin Ratio 0.7 L Urine Color Yellow Urine Clarity Clear Urine pH 5.0 Ur Specific [place] 1.013 Urine Protein Negative Urine Glucose (UA) 3+ H Urine Ketones Negative Urine Blood Negative Urine Nitrate Negative Urine Bilirubin Negative Urine Urobilinogen Normal Ur Leukocyte Esterase Neg Urine WBC (Auto) < 1 Urine RBC (Auto) < 1 Ur Squamous Epith Cells < 1 Urine Bacteria Rare Hepatitis A IgM Ab Hep Bs Antigen Hep B Core IgM Ab Hepatitis C Antibody Blood Type Antibody Screen 08/29/16 08/29/16 08/29/16 06:43 09:45 11:29 WBC 3.1 L RBC 3.13 L Hgb 7.8 L Hct 22.9 L MCV 73.2 L MCH 24.8 L MCHC 33.9 RDW 19.9 H Plt Count 147 MPV 8.7 Neut % (Auto) 38.0 L Lymph % (Auto) 37.8 Miller % (Auto) 20.5 H Eos % (Auto) 3.4 Baso % (Auto) 0.3 Neut # 1.2 L Lymph # 1.2 Miller # 0.6 Eos # 0.1 Baso # 0.0 Neutrophils % (Manual) 39 L Lymphocytes % (Manual) 40 Monocytes % (Manual) 19 H Eosinophils % (Manual) 2 Platelet Estimate Normal Polychromasia Slight Hypochromasia (manual) Slight Poikilocytosis (manual Slight Anisocytosis (manual) Slight Microcytosis (manual) Slight Ovalocytes Slight Kinsey Cells Slight Sodium Potassium Chloride Carbon Dioxide Anion Gap BUN Creatinine Est GFR ( Amer) Est GFR (Non-Af Amer) POC Glucose (mg/dL) 216 H Random Glucose Calcium Total Bilirubin AST ALT Alkaline Phosphatase Total Creatine Kinase 31 L CK-MB (Mass) 2.42 Troponin I, Quant 0.9860 H* Total Protein Albumin Globulin Albumin/Globulin Ratio Urine Color Urine Clarity Urine pH Ur Specific [place] Urine Protein Urine Glucose (UA) Urine Ketones Urine Blood Urine Nitrate Urine Bilirubin Urine Urobilinogen Ur Leukocyte Esterase Urine WBC (Auto) Urine RBC (Auto) Ur Squamous Epith Cells Urine Bacteria Hepatitis A IgM Ab Hep Bs Antigen Hep B Core IgM Ab Hepatitis C Antibody Blood Type Antibody Screen 08/29/16 16:31 WBC RBC Hgb Hct MCV MCH MCHC RDW Plt Count MPV Neut % (Auto) Lymph % (Auto) Miller % (Auto) Eos % (Auto) Baso % (Auto) Neut # Lymph # Miller # Eos # Baso # Neutrophils % (Manual) Lymphocytes % (Manual) Monocytes % (Manual) Eosinophils % (Manual) Platelet Estimate Polychromasia Hypochromasia (manual) Poikilocytosis (manual Anisocytosis (manual) Microcytosis (manual) Ovalocytes [place] Cells Sodium Potassium Chloride Carbon Dioxide Anion Gap BUN Creatinine Est GFR ( Amer) Est GFR (Non-Af Amer) POC Glucose (mg/dL) 229 H Random Glucose Calcium Total Bilirubin AST ALT Alkaline Phosphatase Total Creatine Kinase CK-MB (Mass) Troponin I, Quant Total Protein Albumin Globulin Albumin/Globulin Ratio Urine Color Urine Clarity Urine pH Ur Specific [place] Urine Protein Urine Glucose (UA) Urine Ketones Urine Blood Urine Nitrate Urine Bilirubin Urine Urobilinogen Ur Leukocyte Esterase Urine WBC (Auto) Urine RBC (Auto) Ur Squamous Epith Cells Urine Bacteria Hepatitis A IgM Ab Hep Bs Antigen Hep B Core IgM Ab Hepatitis C Antibody Blood Type Antibody Screen Assessment & Plan - Assessment and Plan (Free Text) Assessment: 71 y/o male with history of uncontrolled DM, CAD s/p PCI, CO, HTN, with large, purulent, nonhealing ulcer of right medial malleolus -CTA -Recommend MRI r/o osteomyelitis -F/u cultures -Antibiotics as per infectious disease -Based on pt's history and chronic disease will likely need amputation. -Further recs per Dr. Lugo
--- NOTE | 2016-08-29 19:00 | CP.PCM.PN ---
Subjective - Date & Time of Evaluation Date of Evaluation: 08/29/16 Time of Evaluation: 15:00 - Subjective Subjective: clinically same Objective - Vital Signs/Intake and Output Vital Signs (last 24 hours): Temp Pulse Resp BP Pulse Ox 98 F 79 18 140/62 98 08/29/16 18:26 08/29/16 18:26 08/29/16 18:26 08/29/16 18:26 08/29/16 16:02 Intake and Output: 08/29/16 08/30/16 18:59 06:59 Intake Total 1625 Output Total 500 Balance 1125 - Medications Medications: Current Medications Ferric Sodium Gluconate Complex (Ferrlecit) 125 mg IVPB DAILY [facility] Stop: 09/06/16 10:01 Last Admin: 08/29/16 10:27 Dose: 125 mg Piperacillin Sod/Tazobactam (Sod 3.375 gm/ Sodium Chloride) 100 mls @ 200 mls/ hr IVPB Q6H [facility] Last Admin: 08/29/16 17:28 Dose: 200 mls/hr Insulin Glargine (Lantus) 10 unit SC [facility] Last Admin: 08/28/16 21:44 Dose: 10 units Insulin Human Regular (Novolin R) 0 unit SC [facility] PRN Reason: Protocol Last Admin: 08/29/16 16:34 Dose: 4 unit Isosorbide Mononitrate (Imdur) 30 mg PO DAILY [facility] Last Admin: 08/29/16 17:40 Dose: 30 mg Pantoprazole Sodium (Protonix Inj) 40 mg IVP DAILY [facility] Last Admin: 08/29/16 15:07 Dose: 40 mg Ranolazine (Ranexa) 500 mg PO BID [facility] Last Admin: 08/29/16 17:41 Dose: 500 mg Rosuvastatin Calcium (Crestor) 20 mg PO [facility] Last Admin: 08/28/16 21:44 Dose: 20 mg - Labs Labs: 08/29/16 06:43 08/29/16 01:49 - Constitutional Appears: Well - Head Exam Head Exam: ATRAUMATIC, NORMAL INSPECTION, NORMOCEPHALIC - Eye Exam Eye Exam: EOMI, Normal appearance, PERRL Pupil Exam: NORMAL ACCOMODATION, PERRL - ENT Exam ENT Exam: Mucous Membranes Moist, Normal Exam - Neck Exam Neck Exam: Full ROM, Normal Inspection. absent: Lymphadenopathy - Respiratory Exam Respiratory Exam: Decreased Breath Sounds - Cardiovascular Exam Cardiovascular Exam: REGULAR RHYTHM, +S1, +S2 - GI/Abdominal Exam GI & Abdominal Exam: Soft, Diminished Bowel Sounds - Rectal Exam Rectal Exam: Deferred Assessment and Plan (1) Acute respiratory failure Status: Acute (2) Anemia Status: Acute (3) Bacteremia due to methicillin resistant Staphylococcus aureus Status: Acute (4) Chest pain Status: Acute (5) Coagulopathy Status: Acute (6) Diabetes mellitus with ulcer of ankle Status: Acute (7) Diabetes mellitus, new onset Status: Acute (8) Dyspnea Status: Acute (9) Gastrointestinal hemorrhage Status: Acute (10) Infected ulcer of skin Status: Acute (11) MDS (myelodysplastic syndrome) Status: Acute (12) Neutropenia Status: Acute (13) Non-STEMI (non-ST elevated myocardial infarction) Status: Acute (14) Non-healing ulcer of foot Status: Acute (15) PAD (peripheral artery disease) Status: Acute (16) Pancytopenia Status: Acute (17) Pneumonia Status: Acute (18) Pneumonia Status: Acute (19) Prophylactic measure Status: Acute (20) Sepsis Status: Acute (21) CAD (coronary artery disease) Status: Chronic (22) CHF (congestive heart failure) Status: Chronic (23) Diabetes mellitus Status: Chronic - Assessment and Plan (Free Text) Plan: consult ID consult social media developer consult gastrologist s/p 2 PRBC tranfusion due to anemia monitor H/H f/u culture savana. iv antibiotics wound care recommended MRI r/o osteoarthrities
[2016-08-29 20:44] LABS: HEMATOCRIT 31.7 % (35.0-51.0); MEAN CORPUSCULAR HEMOGLOBIN 25.9 pg (27.0-31.0); MEAN CORPUSCULAR HGB CONC 33.4 g/dL (33.0-37.0); MEAN PLATELET VOLUME 8.9 fL (7.2-11.7); RED CELL DISTRIBUTION WIDTH 20.4 % (11.5-14.5); WHITE BLOOD COUNT 2.6 K/uL (4.8-10.8)
[2016-08-29 20:48] LABS: MEAN CELL VOLUME 77.5 fL (80.0-94.0)
[2016-08-29] MEDS: (Lantus) Insulin Glargine, Recombinant SC SCH (21:39)
[2016-08-29] MEDS ORDERED: (Lantus) Insulin Glargine, Recombinant SC SCH (22:00)
[2016-08-30] MEDS: Piperacillin/Tazobact 3.375 GM in Sodium Chloride 100 ML IVPB SCH ×4 (05:04→23:11)
[2016-08-30 06:41] LABS: BASO % 0.1 % (0.0-2.0); EOS # 0.2 K/uL (0.0-0.7); EOS % 5.8 % (0.0-4.0); HEMATOCRIT 28.9 % (35.0-51.0); LYMPH # 1.2 K/uL (1.0-4.3); LYMPH % 43.4 % (20.0-40.0); MEAN CELL VOLUME 76.4 fL (80.0-94.0); MEAN CORPUSCULAR HEMOGLOBIN 25.9 pg (27.0-31.0); MEAN CORPUSCULAR HGB CONC 33.9 g/dL (33.0-37.0); MEAN PLATELET VOLUME 8.8 fL (7.2-11.7); MONO # 0.6 K/uL (0.0-0.8); MONO % 22.4 % (0.0-10.0); NRBC % 0.2 % (0.0-2.0); PLATELET COUNT 146 K/uL (130-400); RED CELL DISTRIBUTION WIDTH 20.1 % (11.5-14.5); WHITE BLOOD COUNT 2.7 K/uL (4.8-10.8)
[2016-08-30 06:51] LABS: CHLORIDE 103 mmol/L (98-107); POTASSIUM 3.5 mmol/L (3.6-5.2); SODIUM 136 mmol/L (132-148)
[2016-08-30 06:53] LABS: GFR AFRICAN-AMERICAN > 60
[2016-08-30 06:54] LABS: ALKALINE PHOSPHATASE 90 U/L (38-126); ALT/SGPT 15 U/L (21-72); AST/SGOT 16 U/L (17-59); BILIRUBIN,TOTAL 1.1 mg/dL (0.2-1.3); BLOOD UREA NITROGEN 9 mg/dL (9-20); CARBON DIOXIDE 22 mmol/L (22-30); GLUCOSE,RANDOM 180 mg/dL (75-110); PHOSPHOROUS 2.9 mg/dL (2.5-4.5); TOTAL PROTEIN 6.5 g/dL (6.3-8.3)
[2016-08-30 06:55] LABS: CALCIUM 8.5 mg/dl (8.6-10.4); MAGNESIUM 1.9 mg/dL (1.6-2.3)
[2016-08-30 07:02] LABS: ALB/GLOB RATIO 0.8 (1.0-2.1)
[2016-08-30] MEDS ORDERED: Potassium Chloride 10 mEq 100 ML IVPB ONE (08:13)
[2016-08-30] MEDS: (Novolin R) Insulin Human Regular 100 units/ml vial SC SCH ×4 (08:22→21:14)
[2016-08-30 08:28] LABS: BASOPHIL 1 % (0-2); EOSINOPHIL 7 % (0-4); NEUTROPHIL 29 % (50-75); TOTAL CELLS COUNTED 100
[2016-08-30 09:06] LABS: INR 1.2
--- NOTE | 2016-08-30 09:24 | CP.PCM.PN ---
<Abdiaziz Adams - Last Filed: 08/30/16 09:21> Subjective - Date & Time of Evaluation Date of Evaluation: 08/30/16 Time of Evaluation: 09:21 - Subjective Subjective: PGY4 GI Fellow Progress Note Patient seen and examined bedside this morning. I received a phone call last night from the patient's nurse stating that he was refusing to drink remainder of the bowel prep. Today, patient states he was nauseated by prep and could not tolerate the remainder of it. Passing stool without issue but still some formed stool. Hungry and eager to eat. 12 system ROS performed and negative except where stated. Objective - Vital Signs/Intake and Output Vital Signs (last 24 hours): Temp Pulse Resp BP Pulse Ox 97.6 F 62 16 128/50 L 98 08/30/16 08:00 08/30/16 08:46 08/30/16 08:46 08/30/16 08:46 08/30/16 08:46 Intake and Output: 08/30/16 08/30/16 06:59 18:59 Intake Total 540 0 Output Total 600 100 Balance -60 -100 - Medications Medications: Current Medications Ferric Sodium Gluconate Complex (Ferrlecit) 125 mg IVPB DAILY [facility] Stop: 09/06/16 10:01 Last Admin: 08/29/16 10:27 Dose: 125 mg Piperacillin Sod/Tazobactam (Sod 3.375 gm/ Sodium Chloride) 100 mls @ 200 mls/ hr IVPB Q6H [facility] Last Admin: 08/30/16 05:04 Dose: 200 mls/hr Insulin Glargine (Lantus) 10 unit SC [facility] Last Admin: 08/29/16 21:39 Dose: 10 units Insulin Human Regular (Novolin R) 0 unit SC [facility] PRN Reason: Protocol Last Admin: 08/30/16 08:22 Dose: Not Given Isosorbide Mononitrate (Imdur) 30 mg PO DAILY [facility] Last Admin: 08/29/16 17:40 Dose: 30 mg Pantoprazole Sodium (Protonix Inj) 40 mg IVP DAILY [facility] Last Admin: 08/29/16 15:07 Dose: 40 mg Ranolazine (Ranexa) 500 mg PO BID [facility] Last Admin: 08/29/16 17:41 Dose: 500 mg Rosuvastatin Calcium (Crestor) 20 mg PO [facility] Last Admin: 08/29/16 21:37 Dose: 20 mg - Labs Labs: 08/30/16 06:30 08/30/16 06:30 PT 13.2 SECONDS (9.7-12.2) H 08/30/16 08:53 INR 1.2 08/30/16 08:53 APTT 28 SECONDS (21-34) 08/30/16 08:53 - Constitutional Appears: Non-toxic, No Acute Distress - Eye Exam Eye Exam: EOMI, PERRL - ENT Exam ENT Exam: Mucous Membranes Moist - Respiratory Exam Respiratory Exam: Clear to Ausculation Bilateral. absent: Rales, Rhonchi, Wheezes - Cardiovascular Exam Cardiovascular Exam: RRR, +S1, +S2 - GI/Abdominal Exam GI & Abdominal Exam: Soft, Normal Bowel Sounds. absent: Distended, Firm, Guarding, Rigid, Tenderness, Organomegaly - Extremities Exam Additional comments: right ankle ulceration noted - Neurological Exam Neurological Exam: Alert, Awake, Oriented x3 - Psychiatric Exam Psychiatric exam: Normal Affect, Normal Mood - Skin Skin Exam: Dry, Warm Assessment and Plan - Assessment and Plan (Free Text) Assessment: Patient is a 71yo male with PMHx significant for CAD s/p PCI with 2 stents placed, HTN, DM, diabetic foot ulcers/venous stasis ulcers, tobacco and distant alcohol abuse who presented to the ED complaining of a non-healing right foot wound -Microcytic iron deficient anemia -Lower extremity ulceration, R/O osteomyelitis -CAD, suspect PAD -HTN -DM -Constipation -Troponinemia from demand ischemia Plan: -S/P transfusion with improvement in HGB, subsequent drop this AM - no overt bleeding noted -Patient did not complete bowel prep; agrees to EGD/Colon tomorrow -Continue Golytely prep today -Liquid diet today -NPO past MN -IV antibiotics per primary service -Consider checking ESR/CRP and MRI ankle to R/O osteomyelitis as suggested on reading of recent plain film <Solitario Mosqueda - Last Filed: 08/30/16 13:24> Objective - Vital Signs/Intake and Output Vital Signs (last 24 hours): Temp Pulse Resp BP Pulse Ox 97.3 F L 86 13 133/50 L 98 08/30/16 12:00 08/30/16 12:00 08/30/16 12:00 08/30/16 11:47 08/30/16 12:00 Intake and Output: 08/30/16 08/30/16 06:59 18:59 Intake Total 540 525 Output Total 600 100 Balance -60 425 - Medications Medications: Current Medications Ferric Sodium Gluconate Complex (Ferrlecit) 125 mg IVPB DAILY [facility] Stop: 09/06/16 10:01 Last Admin: 08/30/16 10:02 Dose: 125 mg Piperacillin Sod/Tazobactam (Sod 3.375 gm/ Sodium Chloride) 100 mls @ 200 mls/ hr IVPB Q6H [facility] Last Admin: 08/30/16 11:34 Dose: 200 mls/hr Insulin Glargine (Lantus) 10 unit SC [facility] Last Admin: 08/29/16 21:39 Dose: 10 units Insulin Human Regular (Novolin R) 0 unit SC [facility] PRN Reason: Protocol Last Admin: 08/30/16 12:37 Dose: 2 unit Isosorbide Mononitrate (Imdur) 30 mg PO DAILY [facility] Last Admin: 08/30/16 10:02 Dose: 30 mg Pantoprazole Sodium (Protonix Inj) 40 mg IVP DAILY [facility] Last Admin: 08/30/16 10:02 Dose: 40 mg Ranolazine (Ranexa) 500 mg PO BID [facility] Last Admin: 08/30/16 10:02 Dose: 500 mg Rosuvastatin Calcium (Crestor) 20 mg PO [facility] Last Admin: 08/29/16 21:37 Dose: 20 mg - Labs Labs: 08/30/16 06:30 08/30/16 06:30 PT 13.2 SECONDS (9.7-12.2) H 08/30/16 08:53 INR 1.2 08/30/16 08:53 APTT 28 SECONDS (21-34) 08/30/16 08:53 Attending/Attestation - Attestation I have personally seen and examined this patient.: Yes I have fully participated in the care of the patient.: Yes I have reviewed all pertinent clinical information, including history, physical exam and plan: Yes Notes (Text): 08/30/16 13:18 I have seen and examined patient with GI fellow. No acute events overnight, he was transferred to ICU given elevation in troponin with underlying cardiac disease. He currently offers no complaints and denies abdominal pain, nausea, vomiting, diarrhea, fever/chills, or rectal bleeding. He was unable to complete the bowel preparation for colonoscopy in entirety. Review of vitals from today are normal. CAD s/p stent DM / HTN lower extremity ulcer Iron deficiency anemia Elevated troponin, demand ischemia - Clear liquid diet as tolerated - Echocardiogram reviewed, no wall motion abnormality, appreciate cardiology note - Continue to monitor H/H - Continue with antibiotic therapy as per ID - Will plan for EGD/colonoscopy evaluation tomorrow following more optimal bowel preparation. NPO after midnight.
[2016-08-30] MEDS: Ferric Sodium Gluconat Complex 62.5 mg/5 ml Vial IVPB SCH (10:02)
[2016-08-30] MEDS: Ranolazine 500 mg Extended Release Tablets PO SCH ×2 (10:02→19:07)
[2016-08-30] MEDS ORDERED: Iodixanol 320 mg/ml 150 ml Bottle IV ONE (12:53)
--- NOTE | 2016-08-30 14:19 | CP.CCUPN ---
<Nathanael Ferguson - Last Filed: 08/30/16 14:04> CCU Subjective - Physician Review Subjective (Free Text): 08/30/16 14:22 Pt seen and examined at bedside. He had begun bowel prep for colonoscopy yesterday, but refused to finish the drink because he became 'nauseous' and ' wanted to eat.' He has been rescheduled for tomorrow morning. Nursing denies abiel blood, but stool occult could not be detected. Pts hemoglobin improved after transfusion of two units yesterday, to 10.6. AM labs showed decrease of Hgb to 9.8. Pt denies dizziness, chest pain, palpitations, confusion, hematemesis, or hematochezia. Wound care nurse was pleased with improvement in wound on right ankle. Pt denying pain in the limb at this time. He is to have MRI of right ankle and CT runoff today. Critical Care Time Spent (in minutes): 40 CCU Objective - Vital Signs / Intake & Output Vital Signs (Last 4 hours): Vital Signs Temp Pulse Resp BP Pulse Ox 08/30/16 12:00 97.3 F L 86 13 98 08/30/16 11:47 84 17 133/50 L 100 08/30/16 11:35 77 18 97 08/30/16 11:00 65 16 100 08/30/16 10:47 69 15 150/67 98 Intake and Output (Last 8hrs): Intake & Output 08/29/16 08/30/16 08/30/16 22:59 06:59 14:59 Intake Total 1700 340 525 Output Total 850 450 100 Balance 850 -110 425 Intake: Intake, IV Amount 100 100 175 Right Antecubital 100 100 100 Left Forearm 75 Oral 900 240 350 Blood Product 650 Red Blood Cells Cpd As1 325 Lr Unit [id number] Other 50 Red Blood Cells Cpd As1 50 Lr Unit [id number] Output: Urine 850 450 100 Urine, Voided 850 450 100 Other: # Bowel Movements 1 0 1 - Physical Exam Head: Positive for: Atraumatic, Normocephalic Pupils: Positive for: PERRL Extroacular Muscles: Positive for: EOMI Mouth: Positive for: Moist Mucous Membranes Respiratory/Chest: Positive for: Clear to Auscultation. Negative for: Rales, Rhonchi Cardiovascular: Positive for: Regular Rate and Rhythm, Normal S1, S2 Abdomen: Positive for: Normal Bowel Sounds. Negative for: Tenderness, Distention Rectal: Positive for: Normal Rectal Tone. Negative for: Gross Blood, Melena, Hemorrhoids Upper Extremity: Positive for: Normal Inspection, Tenderness, Swelling, Temperature Abnormalties (feels warm to touch; felt colder yesterday), Other (1+ /4 pulse). Negative for: Edema Lower Extremity: Positive for: Other (RLE: 5.5 cm ulcer present) Neurological: Positive for: GCS=15, CN II-XII Intact Skin: Positive for: Warm, Dry - Medications Active Medications: Active Medications Generic Name Dose Route Start Last Admin Trade Name Freq PRN Reason Stop Dose Admin Ferric Sodium Gluconate Complex 125 mg 08/29/16 10:00 08/30/16 10:02 Ferrlecit IVPB 09/06/16 10:01 125 mg DAILY LOUANN Administration Piperacillin Sod/Tazobactam 100 mls @ 200 mls/hr 08/28/16 12:00 08/30/16 11:34 Sod 3.375 gm/ Sodium Chloride IVPB 200 mls/hr Q6H OLUANN Administration Insulin Glargine 10 unit 08/28/16 22:00 08/29/16 21:39 Lantus SC 10 units HS LOUANN Administration Insulin Human Regular 0 unit 08/28/16 16:30 08/30/16 12:37 Novolin R SC 2 unit ACHS LOUANN Administration Protocol Isosorbide Mononitrate 30 mg 08/29/16 17:15 08/30/16 10:02 Imdur PO 30 mg DAILY LOUANN Administration Pantoprazole Sodium 40 mg 08/29/16 15:00 08/30/16 10:02 Protonix Inj IVP 40 mg DAILY LOUANN Administration Ranolazine 500 mg 08/29/16 18:00 08/30/16 10:02 Ranexa PO 500 mg BID LOUANN Administration Rosuvastatin Calcium 20 mg 08/28/16 22:00 08/29/16 21:37 Crestor PO 20 mg HS LOUANN Administration - Patient Studies Lab Studies: Microbiology Studies 08/28/16 10:30 Blood Culture - Preliminary Blood-Venous NO GROWTH AFTER 48 HOURS 08/28/16 11:05 Blood Culture - Preliminary Blood-Venous NO GROWTH AFTER 48 HOURS 08/28/16 08:00 Urine Culture - Final Urine No Growth (<1,000 CFU/ML) Lab Studies 08/30/16 08/30/16 08/30/16 Range/Units 11:30 08:53 07:20 WBC (4.8-10.8) K/uL RBC (4.40-5.90) Mil/uL Hgb (12.0-18.0) g/dL Hct (35.0-51.0) % MCV (80.0-94.0) fL MCH (27.0-31.0) pg MCHC (33.0-37.0) g/dL RDW (11.5-14.5) % Plt Count (130-400) K/uL MPV (7.2-11.7) fL Neut % (Auto) (50.0-75.0) % Lymph % (Auto) (20.0-40.0) % [place] % (Auto) (0.0-10.0) % Eos % (Auto) (0.0-4.0) % Baso % (Auto) (0.0-2.0) % Neut # (1.8-7.0) K/uL Lymph # (1.0-4.3) K/uL [place] # (0.0-0.8) K/uL Eos # (0.0-0.7) K/uL Baso # (0.0-0.2) K/uL Neutrophils % (Manual) (50-75) % Lymphocytes % (Manual) (20-40) % Monocytes % (Manual) (0-10) % Eosinophils % (Manual) (0-4) % Basophils % (Manual) (0-2) % Platelet Estimate (NORMAL) Hypochromasia (manual) Poikilocytosis (manual Anisocytosis (manual) Ovalocytes [place] Cells PT 13.2 H (9.7-12.2) SECONDS INR 1.2 APTT 28 (21-34) SECONDS Sodium (132-148) mmol/L Potassium (3.6-5.2) mmol/L Chloride (98-107) mmol/L Carbon Dioxide (22-30) mmol/L Anion Gap (10-20) BUN (9-20) mg/dL Creatinine (0.8-1.5) MG/DL Est GFR ( Amer) Est GFR (Non-Af Amer) POC Glucose (mg/dL) 186 H 190 H (65-110) mg/dL Random Glucose (75-110) mg/dL Calcium (8.6-10.4) mg/dl Phosphorus (2.5-4.5) mg/dL Magnesium (1.6-2.3) mg/dL Total Bilirubin (0.2-1.3) mg/dL AST (17-59) U/L ALT (21-72) U/L Alkaline Phosphatase (38-126) U/L Total Creatine Kinase (55-170) U/L CK-MB (Mass) (0.0-3.38) ng/mL Troponin I, Quant (0.00-0.120) ng/mL Total Protein (6.3-8.3) g/dL Albumin (3.5-5.0) g/dL Globulin (2.2-3.9) gm/dL Albumin/Globulin Ratio (1.0-2.1) Blood Type Antibody Screen 08/30/16 08/29/16 08/29/16 Range/Units 06:30 21:14 20:22 WBC 2.7 L 2.6 L (4.8-10.8) K/uL RBC 3.79 L 4.08 L (4.40-5.90) Mil/uL Hgb 9.8 L 10.6 L D (12.0-18.0) g/dL Hct 28.9 L 31.7 L (35.0-51.0) % MCV 76.4 L 77.5 L D (80.0-94.0) fL MCH 25.9 L 25.9 L (27.0-31.0) pg MCHC 33.9 33.4 (33.0-37.0) g/dL RDW 20.1 H 20.4 H (11.5-14.5) % Plt Count 146 154 (130-400) K/uL MPV 8.8 8.9 (7.2-11.7) fL Neut % (Auto) 28.3 L (50.0-75.0) % Lymph % (Auto) 43.4 H (20.0-40.0) % [place] % (Auto) 22.4 H (0.0-10.0) % Eos % (Auto) 5.8 H (0.0-4.0) % Baso % (Auto) 0.1 (0.0-2.0) % Neut # 0.8 L (1.8-7.0) K/uL Lymph # 1.2 (1.0-4.3) K/uL [place] # 0.6 (0.0-0.8) K/uL Eos # 0.2 (0.0-0.7) K/uL Baso # 0.0 (0.0-0.2) K/uL Neutrophils % (Manual) 29 L (50-75) % Lymphocytes % (Manual) 43 H (20-40) % Monocytes % (Manual) 20 H (0-10) % Eosinophils % (Manual) 7 H (0-4) % Basophils % (Manual) 1 (0-2) % Platelet Estimate Normal (NORMAL) Hypochromasia (manual) Slight Poikilocytosis (manual Slight Anisocytosis (manual) Slight Ovalocytes Slight [place] Cells Slight PT (9.7-12.2) SECONDS INR APTT (21-34) SECONDS Sodium 136 (132-148) mmol/L Potassium 3.5 L (3.6-5.2) mmol/L Chloride 103 (98-107) mmol/L Carbon Dioxide 22 (22-30) mmol/L Anion Gap 15 (10-20) BUN 9 (9-20) mg/dL Creatinine 0.9 (0.8-1.5) MG/DL Est GFR ( Amer) > 60 Est GFR (Non-Af Amer) > 60 POC Glucose (mg/dL) 193 H (65-110) mg/dL Random Glucose 180 H (75-110) mg/dL Calcium 8.5 L (8.6-10.4) mg/dl Phosphorus 2.9 (2.5-4.5) mg/dL Magnesium 1.9 (1.6-2.3) mg/dL Total Bilirubin 1.1 (0.2-1.3) mg/dL AST 16 L (17-59) U/L ALT 15 L D (21-72) U/L Alkaline Phosphatase 90 (38-126) U/L Total Creatine Kinase 36 L (55-170) U/L CK-MB (Mass) 1.70 (0.0-3.38) ng/mL Troponin I, Quant 0.6080 H* (0.00-0.120) ng/mL Total Protein 6.5 (6.3-8.3) g/dL Albumin 2.8 L (3.5-5.0) g/dL Globulin 3.7 (2.2-3.9) gm/dL Albumin/Globulin Ratio 0.8 L (1.0-2.1) Blood Type Antibody Screen 08/29/16 08/28/16 Range/Units 16:31 17:07 WBC (4.8-10.8) K/uL RBC (4.40-5.90) Mil/uL Hgb (12.0-18.0) g/dL Hct (35.0-51.0) % MCV (80.0-94.0) fL MCH (27.0-31.0) pg MCHC (33.0-37.0) g/dL RDW (11.5-14.5) % Plt Count (130-400) K/uL MPV (7.2-11.7) fL Neut % (Auto) (50.0-75.0) % Lymph % (Auto) (20.0-40.0) % [place] % (Auto) (0.0-10.0) % Eos % (Auto) (0.0-4.0) % Baso % (Auto) (0.0-2.0) % Neut # (1.8-7.0) K/uL Lymph # (1.0-4.3) K/uL [place] # (0.0-0.8) K/uL Eos # (0.0-0.7) K/uL Baso # (0.0-0.2) K/uL Neutrophils % (Manual) (50-75) % Lymphocytes % (Manual) (20-40) % Monocytes % (Manual) (0-10) % Eosinophils % (Manual) (0-4) % Basophils % (Manual) (0-2) % Platelet Estimate (NORMAL) Hypochromasia (manual) Poikilocytosis (manual Anisocytosis (manual) Ovalocytes [place] Cells PT (9.7-12.2) SECONDS INR APTT (21-34) SECONDS Sodium (132-148) mmol/L Potassium (3.6-5.2) mmol/L Chloride (98-107) mmol/L Carbon Dioxide (22-30) mmol/L Anion Gap (10-20) BUN (9-20) mg/dL Creatinine (0.8-1.5) MG/DL Est GFR ( Amer) Est GFR (Non-Af Amer) POC Glucose (mg/dL) 229 H (65-110) mg/dL Random Glucose (75-110) mg/dL Calcium (8.6-10.4) mg/dl Phosphorus (2.5-4.5) mg/dL Magnesium (1.6-2.3) mg/dL Total Bilirubin (0.2-1.3) mg/dL AST (17-59) U/L ALT (21-72) U/L Alkaline Phosphatase (38-126) U/L Total Creatine Kinase (55-170) U/L CK-MB (Mass) (0.0-3.38) ng/mL Troponin I, Quant (0.00-0.120) ng/mL Total Protein (6.3-8.3) g/dL Albumin (3.5-5.0) g/dL Globulin (2.2-3.9) gm/dL Albumin/Globulin Ratio (1.0-2.1) Blood Type A POSITIVE Antibody Screen Negative Laboratory Results - last 24 hr 08/28/16 08/29/16 08/29/16 17:07 16:31 20:22 WBC 2.6 L RBC 4.08 L Hgb 10.6 L D Hct 31.7 L MCV 77.5 L D MCH 25.9 L MCHC 33.4 RDW 20.4 H Plt Count 154 MPV 8.9 Neut % (Auto) Lymph % (Auto) [place] % (Auto) Eos % (Auto) Baso % (Auto) Neut # Lymph # [place] # Eos # Baso # Neutrophils % (Manual) Lymphocytes % (Manual) Monocytes % (Manual) Eosinophils % (Manual) Basophils % (Manual) Platelet Estimate Hypochromasia (manual) Poikilocytosis (manual Anisocytosis (manual) Ovalocytes [place] Cells PT INR APTT Sodium Potassium Chloride Carbon Dioxide Anion Gap BUN Creatinine Est GFR ( Amer) Est GFR (Non-Af Amer) POC Glucose (mg/dL) 229 H Random Glucose Calcium Phosphorus Magnesium Total Bilirubin AST ALT Alkaline Phosphatase Total Creatine Kinase 36 L CK-MB (Mass) 1.70 Troponin I, Quant 0.6080 H* Total Protein Albumin Globulin Albumin/Globulin Ratio Blood Type A POSITIVE Antibody Screen Negative 08/29/16 08/30/16 08/30/16 21:14 06:30 07:20 WBC 2.7 L RBC 3.79 L Hgb 9.8 L Hct 28.9 L MCV 76.4 L MCH 25.9 L MCHC 33.9 RDW 20.1 H Plt Count 146 MPV 8.8 Neut % (Auto) 28.3 L Lymph % (Auto) 43.4 H [place] % (Auto) 22.4 H Eos % (Auto) 5.8 H Baso % (Auto) 0.1 Neut # 0.8 L Lymph # 1.2 [place] # 0.6 Eos # 0.2 Baso # 0.0 Neutrophils % (Manual) 29 L Lymphocytes % (Manual) 43 H Monocytes % (Manual) 20 H Eosinophils % (Manual) 7 H Basophils % (Manual) 1 Platelet Estimate Normal Hypochromasia (manual) Slight Poikilocytosis (manual Slight Anisocytosis (manual) Slight Ovalocytes Slight [place] Cells Slight PT INR APTT Sodium 136 Potassium 3.5 L Chloride 103 Carbon Dioxide 22 Anion Gap 15 BUN 9 Creatinine 0.9 Est GFR ( Amer) > 60 Est GFR (Non-Af Amer) > 60 POC Glucose (mg/dL) 193 H 190 H Random Glucose 180 H Calcium 8.5 L Phosphorus 2.9 Magnesium 1.9 Total Bilirubin 1.1 AST 16 L ALT 15 L D Alkaline Phosphatase 90 Total Creatine Kinase CK-MB (Mass) Troponin I, Quant Total Protein 6.5 Albumin 2.8 L Globulin 3.7 Albumin/Globulin Ratio 0.8 L Blood Type Antibody Screen 08/30/16 08/30/16 08:53 11:30 WBC RBC Hgb Hct MCV MCH MCHC RDW Plt Count MPV Neut % (Auto) Lymph % (Auto) [place] % (Auto) Eos % (Auto) Baso % (Auto) Neut # Lymph # [place] # Eos # Baso # Neutrophils % (Manual) Lymphocytes % (Manual) Monocytes % (Manual) Eosinophils % (Manual) Basophils % (Manual) Platelet Estimate Hypochromasia (manual) Poikilocytosis (manual Anisocytosis (manual) Ovalocytes [place] Cells PT 13.2 H INR 1.2 APTT 28 Sodium Potassium Chloride Carbon Dioxide Anion Gap BUN Creatinine Est GFR ( Amer) Est GFR (Non-Af Amer) POC Glucose (mg/dL) 186 H Random Glucose Calcium Phosphorus Magnesium Total Bilirubin AST ALT Alkaline Phosphatase Total Creatine Kinase CK-MB (Mass) Troponin I, Quant Total Protein Albumin Globulin Albumin/Globulin Ratio Blood Type Antibody Screen Fingerstick Blood Sugar Results: 186 Review of Systems - Constitutional Constitutional: absent: Fever, Chills - EENT Eyes: absent: Change in Vision Ears: absent: Decreased Hearing Nose/Mouth/Throat: absent: Nasal Discharge - Cardiovascular Cardiovascular: absent: Chest Pain, Chest Pain at Rest, Dyspnea, Dyspnea on Exertion - Respiratory Respiratory: absent: Cough, Dyspnea - Gastrointestinal Gastrointestinal: Diarrhea (pt given go-lytely last evening; no abiel blood noted). absent: Abdominal Pain, Nausea, Vomiting - Genitourinary Genitourinary: absent: Dysuria - Musculoskeletal Musculoskeletal: absent: Numbness, Tingling - Integumentary Integumentary: Wounds (5.5 cm non-healing lesion on left ankle) - Neurological Neurological: absent: Numbness, Tingling, Weakness - Psychiatric Psychiatric: absent: Anxiety, Depression Critical Care Progress Note - Nutrition Nutrition: Nutrition Category Date Time Status Liquid Diet [DIET] Diets 08/30/16 Breakfast Active NPO Diet [DIET] Diets 08/31/16 Breakfast Active Assessment/Plan - Assessment and Plan (Free Text) Assessment: Patient is a 71yo male with PMHx significant for CAD s/p PCI with 2 stents placed, HTN, DM, diabetic foot ulcers/venous stasis ulcers, tobacco and distant alcohol abuse who presented to the ED complaining of a non-healing right foot wound. Microcytic iron-deficiency anemia found on labs. Pt denies overt bleeding. Chest pain with EKG changes from demand ischemia. Pt transferred to ICU for monitoring. Plan: Neuro: AAOx3 CV: R/o ACS Troponin Positive (.0210 > 0.9390 > 1.2400> 0.9860 > 0.6080) - latest troponin downtrending EKG (08/28/16): sinus tachy, physiologic axis, normal intervals, Q waves present in AVL and AVR, ST depression noted in V4 and V5 (new from prior EKG) EKG (08/29/16): Normal sinus rhythm, physiologic axis, normal intervals, New Q waves present, residual ST depression noted in V4 and V6 ECHO (08/29/16): Read by Dr. Moreno; EF55%, Normal wall motion, no significant valve lesions - Prior Stress (04/2014): Normal nuclear perfusion, Normal LVEF Traffic Control Specialist: Dr Coughlin/Tiffanie, help appreciated - Minimal troponin elevation due to demand ischemia from anemia - Pt cleared for EGD/colonoscopy - Medical optimization per Cardio: Start Metoprolol XL 12.5 PO BID, Imdur 30mg PO Daily CAD Hx of two coronary stents placed at [facility] in 2012. Pt admits DC at that time. Patient placed on Plavix, ASA and Statin last admission in 2014. Hold Plavix, ASA for possible blood loss. Continue Crestor 20mg PO HS HTN Pt has been normo/hypotensive since admission Hold home Losartan - Medical optimization per Cardio: - Start Metoprolol XL 12.5 PO BID, Imdur 30mg PO Daily Resp: O2 sat: 100% on room air GI: GI consult: Dr. Luong, help appreciated - No evidence of acute GI hemorrhage - EGD/colonoscopy scheduled CANCELLED, rescheduled for (08/31) AM - continue ferrlecit IV Constipation - Resolved with go-lytely bowel prep Hem/Onc: Hgb: 9.8 on 08/30 AM labs - s/p two units PRBCs yesterday - f/u FOBT Iron deficiency Anemia - Iron, Transferrin, % saturation, TIBC all low - Ferrlecit 125mg IV Daily x 12 doses Endo: Hx of uncontrolled DM BG: elevated, but downtrending Hgb A1C: 10 - Lantus 10 units HS - ISS (high) Urinalysis (08/28/16): 3+ glucose, protein negative /Renal: BUN/Cr: WNL Integumentary: Non-healing, > 5cm ulcer noted on right ankle, Chronic venous stasis noted bilaterally Rt ankle Xray (08/28/16): Medial ankle ulcer appearing more extensive. Prior smooth medial distal tibial periosteal reaction. Contiguous right osteomyelitis cannot be excluded. Consider MRI (see full report) - f/u MRI Dr. Bishop, ID consult: help appreciated - Recommend Vascular surgery consult, as pt with PVD at high risk for gangrene - Wound cx (08/28/16): Positive for Gram negative von, Corynebacterium - Blood Cx (08/28/16): No growth x 24 hours - Zosyn IVPB Dr. Lugo, Vascular surgery, consulted: - f/u CT Ileofemoral run-off Wound care consult, help appreciated: -f/u reccs Prophylaxis: VTE: Holding anticoagulation due to acute drop in H&H SCDs held due to non-healing wounds on LE GI: Protonix 40mg IV Daily D/W Dr. Concetta Ferguson, PGY-1 <Huan Hylton M - Last Filed: 08/30/16 18:00> CCU Objective - Vital Signs / Intake & Output Vital Signs (Last 4 hours): Vital Signs Pulse Resp BP Pulse Ox 08/30/16 15:00 58 L 13 100 08/30/16 14:47 60 13 106/61 100 08/30/16 14:10 67 16 99 08/30/16 14:00 71 13 Intake and Output (Last 8hrs): Intake & Output 08/30/16 08/30/16 08/30/16 06:59 14:59 22:59 Intake Total 340 850 100 Output Total 450 400 0 Balance -110 450 100 Intake: Intake, IV Amount 100 300 Right Antecubital 100 100 Left Forearm 200 Oral 240 550 100 Output: Urine 450 400 0 Urine, Voided 450 400 0 Other: # Bowel Movements 0 0 - Medications Active Medications: Active Medications Generic Name Dose Route Start Last Admin Trade Name Freq PRN Reason Stop Dose Admin Ferric Sodium Gluconate Complex 125 mg 08/29/16 10:00 08/30/16 10:02 Ferrlecit IVPB 09/06/16 10:01 125 mg DAILY LOUANN Administration Piperacillin Sod/Tazobactam 100 mls @ 200 mls/hr 08/28/16 12:00 08/30/16 17:29 Sod 3.375 gm/ Sodium Chloride IVPB 200 mls/hr Q6H LOUANN Administration Insulin Glargine 10 unit 08/28/16 22:00 08/29/16 21:39 Lantus SC 10 units HS LOUANN Administration Insulin Human Regular 0 unit 08/28/16 16:30 08/30/16 16:39 Novolin R SC 10 unit ACHS LOUANN Administration Protocol Isosorbide Mononitrate 30 mg 04/19/17 17:15 08/30/16 10:02 Imdur PO 30 mg DAILY LOUANN Administration Metoprolol Succinate 12.5 mg 08/30/16 18:00 Toprol Xl PO Q24H [facility] Pantoprazole Sodium 40 mg 08/29/16 15:00 08/30/16 10:02 Protonix Inj IVP 40 mg DAILY LOUANN Administration Ranolazine 500 mg 08/29/16 18:00 08/30/16 10:02 Ranexa PO 500 mg BID LOUANN Administration Rosuvastatin Calcium 20 mg 08/28/16 22:00 08/29/16 21:37 Crestor PO 20 mg HS LOUANN Administration - Patient Studies Lab Studies: Microbiology Studies 08/29/16 11:30 MRSA Culture (Admit) - Final Naris MRSA NOT DETECTED 08/28/16 10:30 Blood Culture - Preliminary Blood-Venous NO GROWTH AFTER 48 HOURS 08/28/16 11:05 Blood Culture - Preliminary Blood-Venous NO GROWTH AFTER 48 HOURS 08/28/16 08:00 Urine Culture - Final Urine No Growth (<1,000 CFU/ML) Lab Studies 08/30/16 08/30/16 08/30/16 Range/Units 16:28 16:24 14:17 WBC 2.2 L (4.8-10.8) K/uL RBC 3.86 L (4.40-5.90) Mil/uL Hgb 9.8 L (12.0-18.0) g/dL Hct 29.8 L (35.0-51.0) % MCV 77.1 L (80.0-94.0) fL MCH 25.4 L (27.0-31.0) pg MCHC 32.9 L (33.0-37.0) g/dL RDW 20.6 H (11.5-14.5) % Plt Count 141 (130-400) K/uL MPV 8.2 (7.2-11.7) fL Neut % (Auto) (50.0-75.0) % Lymph % (Auto) (20.0-40.0) % [place] % (Auto) (0.0-10.0) % Eos % (Auto) (0.0-4.0) % Baso % (Auto) (0.0-2.0) % Neut # (1.8-7.0) K/uL Lymph # (1.0-4.3) K/uL [place] # (0.0-0.8) K/uL Eos # (0.0-0.7) K/uL Baso # (0.0-0.2) K/uL Neutrophils % (Manual) (50-75) % Lymphocytes % (Manual) (20-40) % Monocytes % (Manual) (0-10) % Eosinophils % (Manual) (0-4) % Basophils % (Manual) (0-2) % Platelet Estimate (NORMAL) Hypochromasia (manual) Poikilocytosis (manual Anisocytosis (manual) Ovalocytes [place] Cells PT (9.7-12.2) SECONDS INR APTT (21-34) SECONDS Sodium (132-148) mmol/L Potassium (3.6-5.2) mmol/L Chloride (98-107) mmol/L Carbon Dioxide (22-30) mmol/L Anion Gap (10-20) BUN (9-20) mg/dL Creatinine (0.8-1.5) MG/DL Est GFR ( Amer) Est GFR (Non-Af Amer) POC Glucose (mg/dL) 355 H (65-110) mg/dL Random Glucose (75-110) mg/dL Calcium (8.6-10.4) mg/dl Phosphorus (2.5-4.5) mg/dL Magnesium (1.6-2.3) mg/dL Total Bilirubin (0.2-1.3) mg/dL AST (17-59) U/L ALT (21-72) U/L Alkaline Phosphatase (38-126) U/L Total Creatine Kinase (55-170) U/L CK-MB (Mass) (0.0-3.38) ng/mL Troponin I, Quant (0.00-0.120) ng/mL Total Protein (6.3-8.3) g/dL Albumin (3.5-5.0) g/dL Globulin (2.2-3.9) gm/dL Albumin/Globulin Ratio (1.0-2.1) Stool Occult Blood Negative (NEGATIVE) 08/30/16 08/30/16 08/30/16 Range/Units 11:30 08:53 07:20 WBC (4.8-10.8) K/uL RBC (4.40-5.90) Mil/uL Hgb (12.0-18.0) g/dL Hct (35.0-51.0) % MCV (80.0-94.0) fL MCH (27.0-31.0) pg MCHC (33.0-37.0) g/dL RDW (11.5-14.5) % Plt Count (130-400) K/uL MPV (7.2-11.7) fL Neut % (Auto) (50.0-75.0) % Lymph % (Auto) (20.0-40.0) % [place] % (Auto) (0.0-10.0) % Eos % (Auto) (0.0-4.0) % Baso % (Auto) (0.0-2.0) % Neut # (1.8-7.0) K/uL Lymph # (1.0-4.3) K/uL [place] # (0.0-0.8) K/uL Eos # (0.0-0.7) K/uL Baso # (0.0-0.2) K/uL Neutrophils % (Manual) (50-75) % Lymphocytes % (Manual) (20-40) % Monocytes % (Manual) (0-10) % Eosinophils % (Manual) (0-4) % Basophils % (Manual) (0-2) % Platelet Estimate (NORMAL) Hypochromasia (manual) Poikilocytosis (manual Anisocytosis (manual) Ovalocytes [place] Cells PT 13.2 H (9.7-12.2) SECONDS INR 1.2 APTT 28 (21-34) SECONDS Sodium (132-148) mmol/L Potassium (3.6-5.2) mmol/L Chloride (98-107) mmol/L Carbon Dioxide (22-30) mmol/L Anion Gap (10-20) BUN (9-20) mg/dL Creatinine (0.8-1.5) MG/DL Est GFR ( Amer) Est GFR (Non-Af Amer) POC Glucose (mg/dL) 186 H 190 H (65-110) mg/dL Random Glucose (75-110) mg/dL Calcium (8.6-10.4) mg/dl Phosphorus (2.5-4.5) mg/dL Magnesium (1.6-2.3) mg/dL Total Bilirubin (0.2-1.3) mg/dL AST (17-59) U/L ALT (21-72) U/L Alkaline Phosphatase (38-126) U/L Total Creatine Kinase (55-170) U/L CK-MB (Mass) (0.0-3.38) ng/mL Troponin I, Quant (0.00-0.120) ng/mL Total Protein (6.3-8.3) g/dL Albumin (3.5-5.0) g/dL Globulin (2.2-3.9) gm/dL Albumin/Globulin Ratio (1.0-2.1) Stool Occult Blood (NEGATIVE) 08/30/16 08/29/16 08/29/16 Range/Units 06:30 21:14 20:22 WBC 2.7 L 2.6 L (4.8-10.8) K/uL RBC 3.79 L 4.08 L (4.40-5.90) Mil/uL Hgb 9.8 L 10.6 L D (12.0-18.0) g/dL Hct 28.9 L 31.7 L (35.0-51.0) % MCV 76.4 L 77.5 L D (80.0-94.0) fL MCH 25.9 L 25.9 L (27.0-31.0) pg MCHC 33.9 33.4 (33.0-37.0) g/dL RDW 20.1 H 20.4 H (11.5-14.5) % Plt Count 146 154 (130-400) K/uL MPV 8.8 8.9 (7.2-11.7) fL Neut % (Auto) 28.3 L (50.0-75.0) % Lymph % (Auto) 43.4 H (20.0-40.0) % [place] % (Auto) 22.4 H (0.0-10.0) % Eos % (Auto) 5.8 H (0.0-4.0) % Baso % (Auto) 0.1 (0.0-2.0) % Neut # 0.8 L (1.8-7.0) K/uL Lymph # 1.2 (1.0-4.3) K/uL [place] # 0.6 (0.0-0.8) K/uL Eos # 0.2 (0.0-0.7) K/uL Baso # 0.0 (0.0-0.2) K/uL Neutrophils % (Manual) 29 L (50-75) % Lymphocytes % (Manual) 43 H (20-40) % Monocytes % (Manual) 20 H (0-10) % Eosinophils % (Manual) 7 H (0-4) % Basophils % (Manual) 1 (0-2) % Platelet Estimate Normal (NORMAL) Hypochromasia (manual) Slight Poikilocytosis (manual Slight Anisocytosis (manual) Slight Ovalocytes Slight [place] Cells Slight PT (9.7-12.2) SECONDS INR APTT (21-34) SECONDS Sodium 136 (132-148) mmol/L Potassium 3.5 L (3.6-5.2) mmol/L Chloride 103 (98-107) mmol/L Carbon Dioxide 22 (22-30) mmol/L Anion Gap 15 (10-20) BUN 9 (9-20) mg/dL Creatinine 0.9 (0.8-1.5) MG/DL Est GFR ( Amer) > 60 Est GFR (Non-Af Amer) > 60 POC Glucose (mg/dL) 193 H (65-110) mg/dL Random Glucose 180 H (75-110) mg/dL Calcium 8.5 L (8.6-10.4) mg/dl Phosphorus 2.9 (2.5-4.5) mg/dL Magnesium 1.9 (1.6-2.3) mg/dL Total Bilirubin 1.1 (0.2-1.3) mg/dL AST 16 L (17-59) U/L ALT 15 L D (21-72) U/L Alkaline Phosphatase 90 (38-126) U/L Total Creatine Kinase 36 L (55-170) U/L CK-MB (Mass) 1.70 (0.0-3.38) ng/mL Troponin I, Quant 0.6080 H* (0.00-0.120) ng/mL Total Protein 6.5 (6.3-8.3) g/dL Albumin 2.8 L (3.5-5.0) g/dL Globulin 3.7 (2.2-3.9) gm/dL Albumin/Globulin Ratio 0.8 L (1.0-2.1) Stool Occult Blood (NEGATIVE) Laboratory Results - last 24 hr 08/29/16 08/29/16 08/30/16 20:22 21:14 06:30 WBC 2.6 L 2.7 L RBC 4.08 L 3.79 L Hgb 10.6 L D 9.8 L Hct 31.7 L 28.9 L MCV 77.5 L D 76.4 L MCH 25.9 L 25.9 L MCHC 33.4 33.9 RDW 20.4 H 20.1 H Plt Count 154 146 MPV 8.9 8.8 Neut % (Auto) 28.3 L Lymph % (Auto) 43.4 H [place] % (Auto) 22.4 H Eos % (Auto) 5.8 H Baso % (Auto) 0.1 Neut # 0.8 L Lymph # 1.2 [place] # 0.6 Eos # 0.2 Baso # 0.0 Neutrophils % (Manual) 29 L Lymphocytes % (Manual) 43 H Monocytes % (Manual) 20 H Eosinophils % (Manual) 7 H Basophils % (Manual) 1 Platelet Estimate Normal Hypochromasia (manual) Slight Poikilocytosis (manual Slight Anisocytosis (manual) Slight Ovalocytes Slight [place] Cells Slight PT INR APTT Sodium 136 Potassium 3.5 L Chloride 103 Carbon Dioxide 22 Anion Gap 15 BUN 9 Creatinine 0.9 Est GFR ( Amer) > 60 Est GFR (Non-Af Amer) > 60 POC Glucose (mg/dL) 193 H Random Glucose 180 H Calcium 8.5 L Phosphorus 2.9 Magnesium 1.9 Total Bilirubin 1.1 AST 16 L ALT 15 L D Alkaline Phosphatase 90 Total Creatine Kinase 36 L CK-MB (Mass) 1.70 Troponin I, Quant 0.6080 H* Total Protein 6.5 Albumin 2.8 L Globulin 3.7 Albumin/Globulin Ratio 0.8 L Stool Occult Blood 08/30/16 08/30/16 08/30/16 07:20 08:53 11:30 WBC RBC Hgb Hct MCV MCH MCHC RDW Plt Count MPV Neut % (Auto) Lymph % (Auto) [place] % (Auto) Eos % (Auto) Baso % (Auto) Neut # Lymph # [place] # Eos # Baso # Neutrophils % (Manual) Lymphocytes % (Manual) Monocytes % (Manual) Eosinophils % (Manual) Basophils % (Manual) Platelet Estimate Hypochromasia (manual) Poikilocytosis (manual Anisocytosis (manual) Ovalocytes [place] Cells PT 13.2 H INR 1.2 APTT 28 Sodium Potassium Chloride Carbon Dioxide Anion Gap BUN Creatinine Est GFR ( Amer) Est GFR (Non-Af Amer) POC Glucose (mg/dL) 190 H 186 H Random Glucose Calcium Phosphorus Magnesium Total Bilirubin AST ALT Alkaline Phosphatase Total Creatine Kinase CK-MB (Mass) Troponin I, Quant Total Protein Albumin Globulin Albumin/Globulin Ratio Stool Occult Blood 08/30/16 08/30/16 08/30/16 14:17 16:24 16:28 WBC 2.2 L RBC 3.86 L Hgb 9.8 L Hct 29.8 L MCV 77.1 L MCH 25.4 L MCHC 32.9 L RDW 20.6 H Plt Count 141 MPV 8.2 Neut % (Auto) Lymph % (Auto) [place] % (Auto) Eos % (Auto) Baso % (Auto) Neut # Lymph # [place] # Eos # Baso # Neutrophils % (Manual) Lymphocytes % (Manual) Monocytes % (Manual) Eosinophils % (Manual) Basophils % (Manual) Platelet Estimate Hypochromasia (manual) Poikilocytosis (manual Anisocytosis (manual) Ovalocytes [place] Cells PT INR APTT Sodium Potassium Chloride Carbon Dioxide Anion Gap BUN Creatinine Est GFR ( Amer) Est GFR (Non-Af Amer) POC Glucose (mg/dL) 355 H Random Glucose Calcium Phosphorus Magnesium Total Bilirubin AST ALT Alkaline Phosphatase Total Creatine Kinase CK-MB (Mass) Troponin I, Quant Total Protein Albumin Globulin Albumin/Globulin Ratio Stool Occult Blood Negative Critical Care Progress Note - Nutrition Nutrition: Nutrition Category Date Time Status Liquid Diet [DIET] Diets 08/30/16 Breakfast Active NPO Diet [DIET] Diets 08/31/16 Breakfast Active Attending/Attestation - Attestation I have personally seen and examined this patient.: Yes I have fully participated in the care of the patient.: Yes I have reviewed all pertinent clinical information: Yes Notes (Text): 08/30/16 Today: , August 30, 2016 The Patient was seen and examined at the bedside, Medical records reviewed, all clinical/lab/hemodynamic/radiographic data were reviewed and management issues were discussed and formulated, Events reviewed Pain issues, skin care, head of the bed elevation, glycemic control were addressed. Agree with above treatment plans as transcribed in Dr. Marty thakkar
[2016-08-30 16:31] LABS: HEMATOCRIT 29.8 % (35.0-51.0); MEAN CELL VOLUME 77.1 fL (80.0-94.0); MEAN CORPUSCULAR HEMOGLOBIN 25.4 pg (27.0-31.0); MEAN CORPUSCULAR HGB CONC 32.9 g/dL (33.0-37.0); MEAN PLATELET VOLUME 8.2 fL (7.2-11.7); RED CELL DISTRIBUTION WIDTH 20.6 % (11.5-14.5); WHITE BLOOD COUNT 2.2 K/uL (4.8-10.8)
--- NOTE | 2016-08-30 16:56 | CP.PCM.PN ---
Subjective - Date & Time of Evaluation Date of Evaluation: 08/30/16 Time of Evaluation: 15:00 - Subjective Subjective: Vascular Surgery Dr. Lugo Pt S&E @bedside. NAEO. no complaints. denies F/C, N/V. EGD/Colonoscopy rescheduled for tomorrow due to insufficient prep. Objective - Vital Signs/Intake and Output Vital Signs (last 24 hours): Temp Pulse Resp BP Pulse Ox 97.3 F L 58 L 13 106/61 100 08/30/16 12:00 08/30/16 15:00 08/30/16 15:00 08/30/16 14:47 08/30/16 15:00 Intake and Output: 08/30/16 08/30/16 06:59 18:59 Intake Total 540 950 Output Total 600 400 Balance -60 550 - Medications Medications: Current Medications Ferric Sodium Gluconate Complex (Ferrlecit) 125 mg IVPB DAILY [facility] Stop: 09/06/16 10:01 Last Admin: 08/30/16 10:02 Dose: 125 mg Piperacillin Sod/Tazobactam (Sod 3.375 gm/ Sodium Chloride) 100 mls @ 200 mls/ hr IVPB Q6H [facility] Last Admin: 08/30/16 11:34 Dose: 200 mls/hr Insulin Glargine (Lantus) 10 unit SC HS [facility] Last Admin: 08/29/16 21:39 Dose: 10 units Insulin Human Regular (Novolin R) 0 unit SC ACHS [facility] PRN Reason: Protocol Last Admin: 08/30/16 16:39 Dose: 10 unit Isosorbide Mononitrate (Imdur) 30 mg PO DAILY [facility] Last Admin: 08/30/16 10:02 Dose: 30 mg Metoprolol Succinate (Toprol Xl) 12.5 mg PO Q24H [facility] Pantoprazole Sodium (Protonix Inj) 40 mg IVP DAILY [facility] Last Admin: 08/30/16 10:02 Dose: 40 mg Ranolazine (Ranexa) 500 mg PO BID [facility] Last Admin: 08/30/16 10:02 Dose: 500 mg Rosuvastatin Calcium (Crestor) 20 mg PO HS [facility] Last Admin: 08/29/16 21:37 Dose: 20 mg - Labs Labs: 08/30/16 16:28 08/30/16 06:30 PT 13.2 SECONDS (9.7-12.2) H 08/30/16 08:53 INR 1.2 08/30/16 08:53 APTT 28 SECONDS (21-34) 08/30/16 08:53 - Constitutional Appears: Non-toxic, No Acute Distress, Chronically Ill - Head Exam Head Exam: NORMAL INSPECTION - Eye Exam Eye Exam: Normal appearance - ENT Exam ENT Exam: Mucous Membranes Moist - Respiratory Exam Respiratory Exam: NORMAL BREATHING PATTERN. absent: Accessory Muscle Use, Respiratory Distress - Cardiovascular Exam Cardiovascular Exam: REGULAR RHYTHM - GI/Abdominal Exam GI & Abdominal Exam: Soft. absent: Distended, Tenderness - Extremities Exam Additional comments: Femoral and popliteal pulses palpated B/L DPs nonpalpable. ulcer of R medial malleous. medi-honey in place. no signs necrosis/eschar. dressing c/d/i TTP plantar surface - Neurological Exam Neurological Exam: Alert, Awake - Psychiatric Exam Psychiatric exam: Normal Affect, Normal Mood - Skin Skin Exam: Dry, Normal Color, Warm Assessment and Plan - Assessment and Plan (Free Text) Assessment: 71 y/o M w/ large, purulent, non-healing ulcer of right medial malleolus - f/u CTA report - Recommend MRI r/o osteomyelitis - F/u cultures - Abx as per infectious disease Further recs per Dr. Brittney Chang DO PGY1
--- NOTE | 2016-08-30 17:18 | CP.PCM.PN ---
Subjective - Date & Time of Evaluation Date of Evaluation: 08/30/16 Time of Evaluation: 14:20 - Subjective Subjective: clinically same Objective - Vital Signs/Intake and Output Vital Signs (last 24 hours): Temp Pulse Resp BP Pulse Ox 97.3 F L 58 L 13 106/61 100 08/30/16 12:00 08/30/16 15:00 08/30/16 15:00 08/30/16 14:47 08/30/16 15:00 Intake and Output: 08/30/16 08/30/16 06:59 18:59 Intake Total 540 950 Output Total 600 400 Balance -60 550 - Medications Medications: Current Medications Ferric Sodium Gluconate Complex (Ferrlecit) 125 mg IVPB DAILY [facility] Stop: 09/06/16 10:01 Last Admin: 08/30/16 10:02 Dose: 125 mg Piperacillin Sod/Tazobactam (Sod 3.375 gm/ Sodium Chloride) 100 mls @ 200 mls/ hr IVPB Q6H [facility] Last Admin: 08/30/16 11:34 Dose: 200 mls/hr Insulin Glargine (Lantus) 10 unit SC [facility] Last Admin: 08/29/16 21:39 Dose: 10 units Insulin Human Regular (Novolin R) 0 unit SC [facility] PRN Reason: Protocol Last Admin: 08/30/16 16:39 Dose: 10 unit Isosorbide Mononitrate (Imdur) 30 mg PO DAILY [facility] Last Admin: 08/30/16 10:02 Dose: 30 mg Metoprolol Succinate (Toprol Xl) 12.5 mg PO Q24H [facility] Pantoprazole Sodium (Protonix Inj) 40 mg IVP DAILY [facility] Last Admin: 08/30/16 10:02 Dose: 40 mg Ranolazine (Ranexa) 500 mg PO BID [facility] Last Admin: 08/30/16 10:02 Dose: 500 mg Rosuvastatin Calcium (Crestor) 20 mg PO [facility] Last Admin: 08/29/16 21:37 Dose: 20 mg - Labs Labs: 08/30/16 16:28 08/30/16 06:30 PT 13.2 SECONDS (9.7-12.2) H 08/30/16 08:53 INR 1.2 08/30/16 08:53 APTT 28 SECONDS (21-34) 08/30/16 08:53 - Constitutional Appears: Well - Head Exam Head Exam: ATRAUMATIC, NORMAL INSPECTION, NORMOCEPHALIC - Eye Exam Eye Exam: EOMI, Normal appearance, PERRL Pupil Exam: NORMAL ACCOMODATION, PERRL - ENT Exam ENT Exam: Mucous Membranes Moist, Normal Exam - Neck Exam Neck Exam: Full ROM, Normal Inspection. absent: Lymphadenopathy - Respiratory Exam Respiratory Exam: Decreased Breath Sounds - Cardiovascular Exam Cardiovascular Exam: REGULAR RHYTHM, +S1, +S2 - GI/Abdominal Exam GI & Abdominal Exam: Soft, Diminished Bowel Sounds - Rectal Exam Rectal Exam: Deferred Assessment and Plan (1) Acute respiratory failure Status: Acute (2) Anemia Status: Acute (3) Bacteremia due to methicillin resistant Staphylococcus aureus Status: Acute (4) Chest pain Status: Acute (5) Coagulopathy Status: Acute (6) Diabetes mellitus with ulcer of ankle Status: Acute (7) Diabetes mellitus, new onset Status: Acute (8) Dyspnea Status: Acute (9) Gastrointestinal hemorrhage Status: Acute (10) Infected ulcer of skin Status: Acute (11) MDS (myelodysplastic syndrome) Status: Acute (12) Neutropenia Status: Acute (13) Non-STEMI (non-ST elevated myocardial infarction) Status: Acute (14) Non-healing ulcer of foot Status: Acute (15) PAD (peripheral artery disease) Status: Acute (16) Pancytopenia Status: Acute (17) Pneumonia Status: Acute (18) Pneumonia Status: Acute (19) Prophylactic measure Status: Acute (20) Sepsis Status: Acute (21) CAD (coronary artery disease) Status: Chronic (22) CHF (congestive heart failure) Status: Chronic (23) Diabetes mellitus Status: Chronic - Assessment and Plan (Free Text) Plan: f/u Dr. villa f/u Dr. garcia f/u gastro monitor h/h wound care f/u CT/MRI [place]. Iv antibiotics f/u labs
[2016-08-30] MEDS ORDERED: Gadodiamide 287 mg/ml 20 ml IV ONE (18:30)
--- NOTE | 2016-08-30 18:53 | CP.PCM.PN ---
Subjective - Date & Time of Evaluation Date of Evaluation: 08/30/16 Time of Evaluation: 08:00 - Subjective Subjective: events noted iv rx in progress GI eval in am needs MRI/ bone scan/ arterial dopplers - ulcer on ankle Objective - Vital Signs/Intake and Output Vital Signs (last 24 hours): Temp Pulse Resp BP Pulse Ox 97.3 F L 58 L 13 106/61 100 08/30/16 12:00 08/30/16 15:00 08/30/16 15:00 08/30/16 14:47 08/30/16 15:00 Intake and Output: 08/30/16 08/30/16 06:59 18:59 Intake Total 540 950 Output Total 600 400 Balance -60 550 - Medications Medications: Current Medications Ferric Sodium Gluconate Complex (Ferrlecit) 125 mg IVPB DAILY [facility] Stop: 09/06/16 10:01 Last Admin: 08/30/16 10:02 Dose: 125 mg Piperacillin Sod/Tazobactam (Sod 3.375 gm/ Sodium Chloride) 100 mls @ 200 mls/ hr IVPB Q6H [facility] Last Admin: 08/30/16 17:29 Dose: 200 mls/hr Insulin Glargine (Lantus) 10 unit SC [facility] Last Admin: 08/29/16 21:39 Dose: 10 units Insulin Human Regular (Novolin R) 0 unit SC [facility] PRN Reason: Protocol Last Admin: 08/30/16 16:39 Dose: 10 unit Isosorbide Mononitrate (Imdur) 30 mg PO DAILY [facility] Last Admin: 08/30/16 10:02 Dose: 30 mg Metoprolol Succinate (Toprol Xl) 12.5 mg PO Q24H [facility] Pantoprazole Sodium (Protonix Inj) 40 mg IVP DAILY [facility] Last Admin: 08/30/16 10:02 Dose: 40 mg Ranolazine (Ranexa) 500 mg PO BID [facility] Last Admin: 08/30/16 10:02 Dose: 500 mg Rosuvastatin Calcium (Crestor) 20 mg PO HS [facility] Last Admin: 08/29/16 21:37 Dose: 20 mg - Labs Labs: 08/30/16 16:28 08/30/16 06:30 PT 13.2 SECONDS (9.7-12.2) H 08/30/16 08:53 INR 1.2 08/30/16 08:53 APTT 28 SECONDS (21-34) 08/30/16 08:53 - Constitutional Appears: Non-toxic, Cachectic - Head Exam Head Exam: NORMOCEPHALIC - Eye Exam Eye Exam: PERRL. absent: Scleral icterus - ENT Exam ENT Exam: Mucous Membranes Dry - Neck Exam Neck Exam: absent: Lymphadenopathy - Respiratory Exam Respiratory Exam: Decreased Breath Sounds, Rhonchi - Cardiovascular Exam Cardiovascular Exam: REGULAR RHYTHM, +S1, +S2 - GI/Abdominal Exam GI & Abdominal Exam: Distended, Soft - Rectal Exam Rectal Exam: Deferred - Exam Exam: NORMAL INSPECTION Assessment and Plan - Assessment and Plan (Free Text) Plan: cont iv antibiotics / discussed with Lisette Ramírez MD
[2016-08-30] MEDS: Metoprolol Succinate 12.5 mg XL PO SCH (19:37)
[2016-08-30] MEDS: (Lantus) Insulin Glargine, Recombinant SC SCH (21:13)
[2016-08-30] MEDS ORDERED: Potassium Chloride 20 mEq ER Tab PO STA (22:06)
[2016-08-31] MEDS: Piperacillin/Tazobact 3.375 GM in Sodium Chloride 100 ML IVPB SCH ×3 (05:00→17:48)
[2016-08-31 06:10] LABS: BASO % 0.4 % (0.0-2.0); EOS # 0.1 K/uL (0.0-0.7); EOS % 5.3 % (0.0-4.0); HEMATOCRIT 29.4 % (35.0-51.0); LYMPH # 1.5 K/uL (1.0-4.3); LYMPH % 57.4 % (20.0-40.0); MEAN CELL VOLUME 75.9 fL (80.0-94.0); MEAN CORPUSCULAR HEMOGLOBIN 25.6 pg (27.0-31.0); MEAN CORPUSCULAR HGB CONC 33.7 g/dL (33.0-37.0); MEAN PLATELET VOLUME 8.9 fL (7.2-11.7); MONO # 0.5 K/uL (0.0-0.8); MONO % 20.7 % (0.0-10.0); NRBC % 0.1 % (0.0-2.0); PLATELET COUNT 157 K/uL (130-400); RED CELL DISTRIBUTION WIDTH 20.3 % (11.5-14.5); WHITE BLOOD COUNT 2.6 K/uL (4.8-10.8)
[2016-08-31 06:15] LABS: INR 1.2
[2016-08-31 06:28] LABS: CHLORIDE 103 mmol/L (98-107); POTASSIUM 3.9 mmol/L (3.6-5.2); SODIUM 137 mmol/L (132-148)
[2016-08-31 06:30] LABS: BILIRUBIN,TOTAL 1.3 mg/dL (0.2-1.3); GFR AFRICAN-AMERICAN > 60
[2016-08-31 06:31] LABS: ALB/GLOB RATIO 0.7 (1.0-2.1); ALKALINE PHOSPHATASE 93 U/L (38-126); AST/SGOT 13 U/L (17-59); BLOOD UREA NITROGEN 6 mg/dL (9-20); CARBON DIOXIDE 24 mmol/L (22-30); GLUCOSE,RANDOM 98 mg/dL (75-110); TOTAL PROTEIN 6.6 g/dL (6.3-8.3)
[2016-08-31 06:32] LABS: ALT/SGPT 17 U/L (21-72); CALCIUM 8.5 mg/dl (8.6-10.4); MAGNESIUM 1.9 mg/dL (1.6-2.3); PHOSPHOROUS 2.9 mg/dL (2.5-4.5)
[2016-08-31 08:24] LABS: EOSINOPHIL 4 % (0-4); REACTIVE LYMPHOCYTES 2 % (0-0); TOTAL CELLS COUNTED 50
[2016-08-31 08:25] LABS: NEUTROPHIL 16 % (50-75)
[2016-08-31] MEDS: (Novolin R) Insulin Human Regular 100 units/ml vial SC SCH ×4 (09:35→22:28)
[2016-08-31] MEDS: Ranolazine 500 mg Extended Release Tablets PO SCH ×2 (10:44→17:49)
[2016-08-31] MEDS: Ferric Sodium Gluconat Complex 62.5 mg/5 ml Vial IVPB SCH (11:46)
[2016-08-31] MEDS ORDERED: Propofol 10 mg/ml Inj (20 ML) ONE ×2 (13:10→13:35)
[2016-08-31] MEDS ORDERED: Lidocaine Hydrochloride 10 ML INJ ONE (13:10)
--- NOTE | 2016-08-31 13:42 | MRI ---
MRI left ankle History: Ulcer. Evaluate for osteomyelitis. Comparison: None available. Technique: Multi-echo multiplanar sequences were performed through the left ankle without and with the use of intravenous contrast. Findings: Prominent ulceration seen within the medial soft tissues at the level of the left ankle. Marked signal abnormality seen within the medial malleolus and distal tibia at the ankle joint space with heterogeneously increased STIR signal with patchy decreased T1 signal concerning for an acute osteomyelitis. Superimposed osteonecrosis and or avascular necrosis cannot entirely be excluded. Some patchy reactive signal with increased STIR and mild patchy decreased T1 signal noted within the anteromedial talus which may represent some developing acute osteomyelitis. Clinical correlation. Mild tenosynovitis of the anterior tibial tendon sheath. Remainder of the anterior extensor tendons are preserved. Mild tenosynovitis of the posterior tibial tendon sheath. Remainder of the medial flexor tendons are preserved. Peroneal tendons are preserved. Anterior and posterior tibiofibular ligaments are preserved. Moderate grade strains of the anterior and posterior talofibular ligaments. Prominent fraying with increased signal seen within the deep fibers of deltoid ligament suggestive for partial tearing and or moderate grade sprain. Mild distal Achilles tendinopathy. Prominent thickening of the plantar fascia measuring up to 9 millimeters suggestive for a mild to moderate plantar fascitis. 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 Degenerative changes at the talonavicular joint space. Impression: 1. Prominent ulceration seen within the medial soft tissues at the level of the left ankle. Marked signal abnormality seen within the medial malleolus and distal tibia at the ankle joint space with heterogeneously increased STIR signal with patchy decreased T1 signal concerning for an acute osteomyelitis. Superimposed osteonecrosis and or avascular necrosis cannot entirely be excluded. 2. Some patchy reactive signal with increased STIR and mild patchy decreased T1 signal noted within the anteromedial talus which may represent some developing acute osteomyelitis. Clinical correlation. 3. Mild tenosynovitis of the anterior tibial tendon sheath. Remainder of the anterior extensor tendons are preserved. 4. Mild tenosynovitis of the posterior tibial tendon sheath. Remainder of the medial flexor tendons are preserved. 5. Moderate grade strains of the anterior and posterior talofibular ligaments. 6. Prominent fraying with increased signal seen within the deep fibers of deltoid ligament suggestive for partial tearing and or moderate grade sprain. 7. Mild distal Achilles tendinopathy. 8. Prominent thickening of the plantar fascia measuring up to 9 millimeters suggestive for a mild to moderate plantar fascitis. 9. 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 10. Degenerative changes at the talonavicular joint space. These findings were preliminarily reported at 7:55 p.m. on 08/30/[address] Yong Khan from [facility].
--- NOTE | 2016-08-31 14:25 | CP.PCM.PN ---
Subjective - Date & Time of Evaluation Date of Evaluation: 08/31/16 Time of Evaluation: 14:22 - Subjective Subjective: Patient seen and examined. No acute events overnight. s/p EGD and colonoscopy showing gastritis, irregular GEJ, duodenal AVM s/p APC, poor bowel preparation, diverticulosis, sigmoid polyp, hemorrhoids. Objective - Vital Signs/Intake and Output Vital Signs (last 24 hours): Temp Pulse Resp BP Pulse Ox 98.1 F 62 19 120/63 100 08/31/16 13:15 08/31/16 13:15 08/31/16 13:15 08/31/16 13:15 08/31/16 13:15 Intake and Output: 08/31/16 08/31/16 06:59 18:59 Intake Total 1180 200 Output Total 1600 450 Balance -420 -250 - Medications Medications: Current Medications Ferric Sodium Gluconate Complex (Ferrlecit) 125 mg IVPB DAILY [facility] Stop: 09/06/16 10:01 Last Admin: 08/31/16 11:46 Dose: 125 mg Piperacillin Sod/Tazobactam (Sod 3.375 gm/ Sodium Chloride) 100 mls @ 200 mls/ hr IVPB Q6H [facility] Last Admin: 08/31/16 12:24 Dose: 200 mls/hr Insulin Glargine (Lantus) 10 unit SC [facility] Last Admin: 08/30/16 21:13 Dose: 10 units Insulin Human Regular (Novolin R) 0 unit SC [facility] PRN Reason: Protocol Last Admin: 08/31/16 12:23 Dose: Not Given Isosorbide Mononitrate (Imdur) 30 mg PO DAILY [facility] Last Admin: 08/30/16 10:02 Dose: 30 mg Metoprolol Succinate (Toprol Xl) 12.5 mg PO Q24H [facility] Last Admin: 08/30/16 19:37 Dose: 12.5 mg Pantoprazole Sodium (Protonix Inj) 40 mg IVP DAILY [facility] Last Admin: 08/31/16 10:43 Dose: 40 mg Ranolazine (Ranexa) 500 mg PO BID [facility] Last Admin: 08/31/16 10:44 Dose: Not Given Rosuvastatin Calcium (Crestor) 20 mg PO HS [facility] Last Admin: 08/30/16 21:13 Dose: 20 mg - Labs Labs: 08/31/16 06:00 08/31/16 06:05 PT 13.7 SECONDS (9.7-12.2) H 08/31/16 06:00 INR 1.2 08/31/16 06:00 APTT 28 SECONDS (21-34) 08/31/16 06:00 Assessment and Plan - Assessment and Plan (Free Text) Assessment: CAD s/p stent DM, lower extremity ulcer Iron deficiency anemia Plan: - H/H stable, continue to monitor and transfuse as necessary - Advance diet as tolerated - Continue with PPI therapy - Awaiting biopsy results from EGD/colonoscopy - Continue with antibiotic therapy as per ID - Patient would benefit from repeat colonoscopy within 3 months given suboptimal bowel preparation which can be scheduled electively as outpatient. No ongoing GI issues, will sign off case. Please reconsult as necessary, thank you.
--- NOTE | 2016-08-31 15:07 | CT ---
PROCEDURE: CT Angiography Abdomen, Pelvis and Lower Extremity with Contrast HISTORY: Leg pain COMPARISON: None. TECHNIQUE: Technique: CT angiography of the abdomen, pelvis and bilateral lower extremities performed in the arterial phase of enhancement. Coronal and sagittal reformats, and well as rotating MIP images of the vessels generated at the workstation. Intravenous contrast dose: 150 milliliters Visipaque 3 to Radiation dose: Total exam DLP = 1547.38 MGy-cm. This CT exam was performed using one or more of the following dose reduction techniques: Automated exposure control, adjustment of the mA and/or kV according to patient size, and/or use of iterative reconstruction technique. FINDINGS: CT ANGIOGRAPHY: ABDOMINAL AORTA:: Moderate soft plaque throughout the abdominal aorta without aneurysm or stenosis. MAJOR AORTIC BRANCHES: Celiac [place]: Unremarkable. Superior mesenteric artery: Unremarkable. Inferior mesenteric artery: Unremarkable. Renal arteries: Unremarkable. PELVIC ARTERIES: Right Common Iliac: Unremarkable. Right External Iliac: Unremarkable. Right Internal Iliac: Unremarkable. Left Common Iliac: Unremarkable. Left External Iliac: Unremarkable. Left Internal Iliac: Unremarkable. RIGHT LOWER EXTREMITY ARTERIES: Right Common Femoral: Unremarkable. Right Superficial Femoral: Unremarkable. Right Profunda Femoris: Unremarkable. 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 Right Anterior Tibial: Occludes in the proximal mid segment with distal reconstitution. Right Tibioperoneal Trunk: Occludes distally Right Posterior Tibial: Occluded. Reconstitutes distally. Right Peroneal: Unremarkable. Right dorsalis pedis : Unremarkable. LEFT LOWER EXTREMITY ARTERIES: Left Common Femoral: Unremarkable. Left Superficial Femoral: Unremarkable. Left Profunda Femoris: Unremarkable. Left Popliteal: Aneurysmal dilatation of the left popliteal artery measuring 13 millimeters. Left Anterior Tibial: Occluded Left Tibioperoneal Trunk: Severe stenosis distally Left Posterior Tibial: Occluded Left Peroneal: Unremarkable. Left Dorsalis pedis: Unremarkable. NON-ANGIOGRAPHIC ASPECT OF THE EXAM: LOWER THORAX: Unremarkable. LIVER: Unremarkable. No gross lesion or ductal dilatation. GALLBLADDER AND BILE DUCTS: Unremarkable. PANCREAS: Unremarkable. No gross lesion or ductal dilatation. SPLEEN: Unremarkable. ADRENALS: Nodular thickening left adrenal gland KIDNEYS AND URETERS: Sub centimeter hypodense lesion within the right kidney too small to characterize. Otherwise kidneys are unremarkable. STOMACH AND BOWEL: Unremarkable. No obstruction. No gross mural thickening. APPENDIX: PERITONEUM: Unremarkable. No free fluid. No free air. LYMPH NODES: Unremarkable. No enlarged lymph nodes. BLADDER: Unremarkable. REPRODUCTIVE: Unremarkable. BONES: No acute fracture. OTHER FINDINGS: None. IMPRESSION: CT ANGIOGRAM ABDOMEN/PELVIS: 1. Moderate soft plaque throughout the lumbar aorta without aneurysm or stenosis. Major aortic branches are unremarkable. Pelvic arteries are unremarkable. LEFT LOWER EXTREMITY CT ANGIOGRAM: 1. Common femoral artery, profunda femoral artery and superficial femoral artery normal. 2. 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 3. Runoff shows severely stenotic distal tibioperoneal trunk. The anterior tibial artery is occluded and reconstitutes distally. The peroneal artery is unremarkable. The posterior tibial is occluded reconstitutes distally. RIGHT LOWER EXTREMITY CT ANGIOGRAM 1. Common femoral artery profunda femoral artery and superficial femoral artery are normal. 2. Aneurysmal dilatation the right popliteal artery measuring 13 millimeters. 3. Runoff shows severely stenotic distal tibioperoneal artery. Peroneal artery is unremarkable. The anterior tibial is occluded and posterior tibial artery occluded.
[2016-08-31] MEDS: Metoprolol Succinate 12.5 mg XL PO SCH (18:03)
--- NOTE | 2016-08-31 18:27 | CP.PCM.PN ---
Subjective - Date & Time of Evaluation Date of Evaluation: 08/31/16 Time of Evaluation: 15:20 - Subjective Subjective: clinically same Objective - Vital Signs/Intake and Output Vital Signs (last 24 hours): Temp Pulse Resp BP Pulse Ox 97.1 F L 70 15 139/56 L 99 08/31/16 14:30 08/31/16 18:00 08/31/16 18:00 08/31/16 17:29 08/31/16 18:00 Intake and Output: 08/31/16 08/31/16 06:59 18:59 Intake Total 1180 650 Output Total 1600 450 Balance -420 200 - Medications Medications: Current Medications Ferric Sodium Gluconate Complex (Ferrlecit) 125 mg IVPB DAILY [facility] Stop: 09/06/16 10:01 Last Admin: 08/31/16 11:46 Dose: 125 mg Piperacillin Sod/Tazobactam (Sod 3.375 gm/ Sodium Chloride) 100 mls @ 200 mls/ hr IVPB Q6H [facility] Last Admin: 08/31/16 17:48 Dose: 200 mls/hr Insulin Glargine (Lantus) 10 unit SC [facility] Last Admin: 08/30/16 21:13 Dose: 10 units Insulin Human Regular (Novolin R) 0 unit SC [facility] PRN Reason: Protocol Last Admin: 08/31/16 16:54 Dose: Not Given Isosorbide Mononitrate (Imdur) 30 mg PO DAILY [facility] Last Admin: 08/31/16 16:57 Dose: 30 mg Metoprolol Succinate (Toprol Xl) 12.5 mg PO Q24H [facility] Last Admin: 08/31/16 18:03 Dose: 12.5 mg Pantoprazole Sodium (Protonix Ec Tab) 40 mg PO ACB [facility] Ranolazine (Ranexa) 500 mg PO BID [facility] Last Admin: 08/31/16 17:49 Dose: 500 mg Rosuvastatin Calcium (Crestor) 20 mg PO [facility] Last Admin: 08/30/16 21:13 Dose: 20 mg - Labs Labs: 08/31/16 06:00 08/31/16 06:05 PT 13.7 SECONDS (9.7-12.2) H 08/31/16 06:00 INR 1.2 08/31/16 06:00 APTT 28 SECONDS (21-34) 08/31/16 06:00 - Constitutional Appears: Well - Head Exam Head Exam: ATRAUMATIC, NORMAL INSPECTION, NORMOCEPHALIC - Eye Exam Eye Exam: EOMI, Normal appearance, PERRL Pupil Exam: NORMAL ACCOMODATION, PERRL - ENT Exam ENT Exam: Mucous Membranes Moist, Normal Exam - Neck Exam Neck Exam: Full ROM, Normal Inspection. absent: Lymphadenopathy - Respiratory Exam Respiratory Exam: Decreased Breath Sounds - Cardiovascular Exam Cardiovascular Exam: REGULAR RHYTHM, +S1, +S2 - GI/Abdominal Exam GI & Abdominal Exam: Soft, Diminished Bowel Sounds - Rectal Exam Rectal Exam: Deferred Assessment and Plan - Assessment and Plan (Free Text) Plan: DR daisy Apple Hb stable savana. H/H monitor MRI +ve for osteomyelities conit. Iv antibiotics f/u biopsy result after EGD recommended colonoscopy
--- NOTE | 2016-08-31 18:36 | CP.CCUPN ---
<Nathanael Ferguson - Last Filed: 08/31/16 20:12> CCU Subjective - Physician Review Subjective (Free Text): 08/30/16 14:22 Pt seen and examined at bedside. B[place]. Pt had MRI of right ankle that was positive for osteomyelitis. Pt made aware of necessity of long-term antibiotics to treat infection. He denies pain in the leg at this time but admits it feels numb when he wakes up occasionally. Nursing reports pt completed bowel prep this AM and is scheduled for colonoscopy later in the day. His hemoglobin was stable this AM, and fecal occult blood test was negative. Critical Care Time Spent (in minutes): 30 CCU Objective - Vital Signs / Intake & Output Vital Signs (Last 4 hours): Vital Signs Pulse Resp BP Pulse Ox 08/31/16 18:00 70 15 99 08/31/16 17:29 52 L 13 139/56 L 100 08/31/16 17:11 51 L 12 100 08/31/16 17:00 57 L 12 100 08/31/16 16:28 53 L 12 125/50 L 100 08/31/16 16:13 52 L 13 141/53 L 100 08/31/16 16:03 56 L 10 L 100 08/31/16 16:00 52 L 12 100 08/31/16 15:58 53 L 12 140/54 L 100 08/31/16 15:45 56 L 12 137/50 L 100 08/31/16 15:43 57 L 14 137/50 L 100 08/31/16 15:30 58 L 12 142/64 100 08/31/16 15:28 65 13 142/64 100 08/31/16 15:15 55 L 12 149/62 100 08/31/16 15:13 59 L 15 149/62 100 08/31/16 15:00 60 14 146/57 L 100 08/31/16 14:58 62 12 146/57 L 100 08/31/16 14:45 59 L 12 137/58 L 100 08/31/16 14:43 60 13 137/58 L 100 Intake and Output (Last 8hrs): Intake & Output 08/31/16 08/31/16 08/31/16 06:59 14:59 22:59 Intake Total 200 650 350 Output Total 1200 450 300 Balance -1000 200 50 Intake: IV 450 Intake, IV Amount 200 200 100 Left Forearm 200 200 100 Oral 0 250 Output: Urine 1200 450 300 Urine, Voided 1200 450 300 Other: # Bowel Movements 0 0 - Physical Exam Head: Positive for: Atraumatic, Normocephalic Pupils: Positive for: PERRL Extroacular Muscles: Positive for: EOMI Mouth: Positive for: Moist Mucous Membranes Respiratory/Chest: Positive for: Clear to Auscultation. Negative for: Rales, Rhonchi Cardiovascular: Positive for: Regular Rate and Rhythm, Normal S1, S2 Abdomen: Positive for: Normal Bowel Sounds. Negative for: Tenderness, Distention Upper Extremity: Positive for: Normal Inspection. Negative for: Edema Lower Extremity: Positive for: Tenderness, Other (RLE: 5.5 cm ulcer present; leg bandage c/d/i). Negative for: NORMAL PULSES (1+/4 DT) Neurological: Positive for: GCS=15, CN II-XII Intact Skin: Positive for: Warm, Dry Psychiatric: Positive for: Alert, Oriented x 3 - Medications Active Medications: Active Medications Generic Name Dose Route Start Last Admin Trade Name Michaelq PRN Reason Stop Dose Admin Ferric Sodium Gluconate Complex 125 mg 08/29/16 10:00 08/31/16 11:46 Ferrlecit IVPB 09/06/16 10:01 125 mg DAILY LOUANN Administration Piperacillin Sod/Tazobactam 100 mls @ 200 mls/hr 08/28/16 12:00 08/31/16 17:48 Sod 3.375 gm/ Sodium Chloride IVPB 200 mls/hr Q6H [facility]ANN Administration Ciprofloxacin 200 mls @ 133 mls/hr 08/31/16 18:45 Cipro 400mg/200ml Dsw IVPB Q12H [facility] Insulin Glargine 10 unit 08/28/16 22:00 08/30/16 21:13 Lantus SC 10 units HS [facility]ANN Administration Insulin Human Regular 0 unit 08/28/16 16:30 08/31/16 16:54 Novolin R SC Not Given ACHS [facility] Protocol Isosorbide Mononitrate 30 mg 08/29/16 17:15 08/31/16 16:57 Imdur PO 30 mg DAILY [facility] Administration Metoprolol Succinate 12.5 mg 08/30/16 18:00 08/31/16 18:03 Toprol Xl PO 12.5 mg Q24H [facility]ANN Administration Pantoprazole Sodium 40 mg 09/01/16 07:30 Protonix Ec Tab PO ACB [facility]ANN Ranolazine 500 mg 08/29/16 18:00 08/31/16 17:49 Ranexa PO 500 mg BID [facility] Administration Rosuvastatin Calcium 20 mg 08/28/16 22:00 08/30/16 21:13 Crestor PO 20 mg HS LOUANN Administration - Patient Studies Lab Studies: Microbiology Studies 08/28/16 10:30 Blood Culture - Preliminary Blood-Venous NO GROWTH AFTER 3 DAYS 08/28/16 11:05 Blood Culture - Preliminary Blood-Venous NO GROWTH AFTER 3 DAYS 08/29/16 11:30 MRSA Culture (Admit) - Final Naris MRSA NOT DETECTED Lab Studies 08/31/16 08/31/16 08/31/16 Range/Units 16:49 12:02 07:26 WBC (4.8-10.8) K/uL RBC (4.40-5.90) Mil/uL Hgb (12.0-18.0) g/dL Hct (35.0-51.0) % MCV (80.0-94.0) fL MCH (27.0-31.0) pg MCHC (33.0-37.0) g/dL RDW (11.5-14.5) % Plt Count (130-400) K/uL MPV (7.2-11.7) fL Neut % (Auto) (50.0-75.0) % Lymph % (Auto) (20.0-40.0) % [place] % (Auto) (0.0-10.0) % Eos % (Auto) (0.0-4.0) % Baso % (Auto) (0.0-2.0) % Neut # (1.8-7.0) K/uL Lymph # (1.0-4.3) K/uL [place] # (0.0-0.8) K/uL Eos # (0.0-0.7) K/uL Baso # (0.0-0.2) K/uL Neutrophils % (Manual) (50-75) % Lymphocytes % (Manual) (20-40) % Reactive Lymphs % (0-0) % Monocytes % (Manual) (0-10) % Eosinophils % (Manual) (0-4) % Platelet Estimate (NORMAL) Polychromasia Hypochromasia (manual) Poikilocytosis (manual Anisocytosis (manual) PT (9.7-12.2) SECONDS INR APTT (21-34) SECONDS Sodium (132-148) mmol/L Potassium (3.6-5.2) mmol/L Chloride (98-107) mmol/L Carbon Dioxide (22-30) mmol/L Anion Gap (10-20) BUN (9-20) mg/dL Creatinine (0.8-1.5) MG/DL Est GFR ( Amer) Est GFR (Non-Af Amer) POC Glucose (mg/dL) 111 H 109 107 (65-110) mg/dL Random Glucose (75-110) mg/dL Calcium (8.6-10.4) mg/dl Phosphorus (2.5-4.5) mg/dL Magnesium (1.6-2.3) mg/dL Total Bilirubin (0.2-1.3) mg/dL AST (17-59) U/L ALT (21-72) U/L Alkaline Phosphatase (38-126) U/L Total Protein (6.3-8.3) g/dL Albumin (3.5-5.0) g/dL Globulin (2.2-3.9) gm/dL Albumin/Globulin Ratio (1.0-2.1) 08/31/16 08/31/16 08/30/16 Range/Units 06:05 06:00 21:24 WBC 2.6 L (4.8-10.8) K/uL RBC 3.88 L (4.40-5.90) Mil/uL Hgb 9.9 L (12.0-18.0) g/dL Hct 29.4 L (35.0-51.0) % MCV 75.9 L (80.0-94.0) fL MCH 25.6 L (27.0-31.0) pg MCHC 33.7 (33.0-37.0) g/dL RDW 20.3 H (11.5-14.5) % Plt Count 157 (130-400) K/uL MPV 8.9 (7.2-11.7) fL Neut % (Auto) 16.2 L (50.0-75.0) % Lymph % (Auto) 57.4 H (20.0-40.0) % [place] % (Auto) 20.7 H (0.0-10.0) % Eos % (Auto) 5.3 H (0.0-4.0) % Baso % (Auto) 0.4 (0.0-2.0) % Neut # 0.4 L (1.8-7.0) K/uL Lymph # 1.5 (1.0-4.3) K/uL [place] # 0.5 (0.0-0.8) K/uL Eos # 0.1 (0.0-0.7) K/uL Baso # 0.0 (0.0-0.2) K/uL Neutrophils % (Manual) 16 L (50-75) % Lymphocytes % (Manual) 64 H (20-40) % Reactive Lymphs % 2 H (0-0) % Monocytes % (Manual) 14 H (0-10) % Eosinophils % (Manual) 4 (0-4) % Platelet Estimate Normal (NORMAL) Polychromasia Slight Hypochromasia (manual) Slight Poikilocytosis (manual Slight Anisocytosis (manual) Slight PT 13.7 H (9.7-12.2) SECONDS INR 1.2 APTT 28 (21-34) SECONDS Sodium 137 (132-148) mmol/L Potassium 3.9 (3.6-5.2) mmol/L Chloride 103 (98-107) mmol/L Carbon Dioxide 24 (22-30) mmol/L Anion Gap 14 (10-20) BUN 6 L (9-20) mg/dL Creatinine 1.0 (0.8-1.5) MG/DL Est GFR ( Amer) > 60 Est GFR (Non-Af Amer) > 60 POC Glucose (mg/dL) 196 H (65-110) mg/dL Random Glucose 98 (75-110) mg/dL Calcium 8.5 L (8.6-10.4) mg/dl Phosphorus 2.9 (2.5-4.5) mg/dL Magnesium 1.9 (1.6-2.3) mg/dL Total Bilirubin 1.3 (0.2-1.3) mg/dL AST 13 L (17-59) U/L ALT 17 L (21-72) U/L Alkaline Phosphatase 93 (38-126) U/L Total Protein 6.6 (6.3-8.3) g/dL Albumin 2.8 L (3.5-5.0) g/dL Globulin 3.8 (2.2-3.9) gm/dL Albumin/Globulin Ratio 0.7 L (1.0-2.1) Laboratory Results - last 24 hr 08/30/16 08/31/16 08/31/16 21:24 06:00 06:05 WBC 2.6 L RBC 3.88 L Hgb 9.9 L Hct 29.4 L MCV 75.9 L MCH 25.6 L MCHC 33.7 RDW 20.3 H Plt Count 157 MPV 8.9 Neut % (Auto) 16.2 L Lymph % (Auto) 57.4 H [place] % (Auto) 20.7 H Eos % (Auto) 5.3 H Baso % (Auto) 0.4 Neut # 0.4 L Lymph # 1.5 [place] # 0.5 Eos # 0.1 Baso # 0.0 Neutrophils % (Manual) 16 L Lymphocytes % (Manual) 64 H Reactive Lymphs % 2 H Monocytes % (Manual) 14 H Eosinophils % (Manual) 4 Platelet Estimate Normal Polychromasia Slight Hypochromasia (manual) Slight Poikilocytosis (manual Slight Anisocytosis (manual) Slight PT 13.7 H INR 1.2 APTT 28 Sodium 137 Potassium 3.9 Chloride 103 Carbon Dioxide 24 Anion Gap 14 BUN 6 L Creatinine 1.0 Est GFR ( Amer) > 60 Est GFR (Non-Af Amer) > 60 POC Glucose (mg/dL) 196 H Random Glucose 98 Calcium 8.5 L Phosphorus 2.9 Magnesium 1.9 Total Bilirubin 1.3 AST 13 L ALT 17 L Alkaline Phosphatase 93 Total Protein 6.6 Albumin 2.8 L Globulin 3.8 Albumin/Globulin Ratio 0.7 L 08/31/16 08/31/16 08/31/16 07:26 12:02 16:49 WBC RBC Hgb Hct MCV MCH MCHC RDW Plt Count MPV Neut % (Auto) Lymph % (Auto) [place] % (Auto) Eos % (Auto) Baso % (Auto) Neut # Lymph # [place] # Eos # Baso # Neutrophils % (Manual) Lymphocytes % (Manual) Reactive Lymphs % Monocytes % (Manual) Eosinophils % (Manual) Platelet Estimate Polychromasia Hypochromasia (manual) Poikilocytosis (manual Anisocytosis (manual) PT INR APTT Sodium Potassium Chloride Carbon Dioxide Anion Gap BUN Creatinine Est GFR ( Amer) Est GFR (Non-Af Amer) POC Glucose (mg/dL) 107 109 111 H Random Glucose Calcium Phosphorus Magnesium Total Bilirubin AST ALT Alkaline Phosphatase Total Protein Albumin Globulin Albumin/Globulin Ratio Fingerstick Blood Sugar Results: 111 Review of Systems - Constitutional Constitutional: absent: Fever, Chills - EENT Eyes: absent: Change in Vision Ears: absent: Decreased Hearing - Cardiovascular Cardiovascular: absent: Chest Pain, Chest Pain at Rest, Dyspnea, Dyspnea on Exertion - Respiratory Respiratory: absent: Cough, Dyspnea - Gastrointestinal Gastrointestinal: absent: Abdominal Pain, Nausea, Vomiting - Genitourinary Genitourinary: absent: Dysuria - Musculoskeletal Musculoskeletal: Numbness (occasional RLE upon waking). absent: Back Pain, Tingling - Integumentary Integumentary: absent: Jaundice - Neurological Neurological: absent: Confusion, Dizziness, Tingling, Weakness Critical Care Progress Note - Nutrition Nutrition: Nutrition Category Date Time Status Heart Healthy Diet [DIET] Diets 08/31/16 Lunch Active Assessment/Plan - Assessment and Plan (Free Text) Assessment: Patient is a 71yo male with PMHx significant for CAD s/p PCI with 2 stents placed, HTN, DM, diabetic foot ulcers/venous stasis ulcers, tobacco and distant alcohol abuse who presented to the ED complaining of a non-healing right foot wound. - Microcytic iron-deficiency anemia found on labs. Pt denies overt bleeding. - Chest pain with EKG changes from demand ischemia following HgB drop to 6.7. Pt transferred to ICU for monitoring. - MRI showed osteomyelitis. ABX per ID. - CT angio showed stenotic distal tibioperoneal artery. Angioplasty required. Plan: Neuro: AAOx3 CV: R/o ACS Troponin Positive (.0210 > 0.9390 > 1.2400> 0.9860 > 0.6080) - latest troponin downtrending EKG (08/28/16): sinus tachy, physiologic axis, normal intervals, Q waves present in AVL and AVR, ST depression noted in V4 and V5 (new from prior EKG) EKG (08/29/16): Normal sinus rhythm, physiologic axis, normal intervals, New Q waves present, residual ST depression noted in V4 and V6 ECHO (08/29/16): Read by Dr. Moreno; EF55%, Normal wall motion, no significant valve lesions - Prior Stress (04/2014): Normal nuclear perfusion, Normal LVEF [place] Operator: Dr Coughlin/Tiffanie, help appreciated - Minimal troponin elevation due to demand ischemia from anemia - Pt cleared for EGD/colonoscopy - Medical optimization per Cardio: Start Metoprolol XL 12.5 PO BID, Imdur 30mg PO Daily CAD Hx of two coronary stents placed at [facility] in 2012. Pt admits [place] at that time. Patient placed on Plavix, ASA and Statin last admission in 2014. Hold Plavix, ASA for possible blood loss. Continue Crestor 20mg PO HS HTN Pt has been normo/hypotensive since admission Hold home Losartan - Medical optimization per Cardio: - Continue Metoprolol XL 12.5 PO BID, Imdur 30mg PO Daily Resp: O2 sat: 100% on room air GI: Concern for GI bleed GI consult: Dr. Luong/Panda, help appreciated - EGD/colonoscopy (08/31/16): gastritis, 2 duodenal AVMs, gastric erosions, diverticulosis, sigmoid polyp, hemorrhoids - repeat outpatient colonoscopy within 3 months due to poor bowel prep - have signed off Hem/Onc: Hgb: 9.9 on 08/31 AM labs - FOBT negative Iron deficiency Anemia - Iron, Transferrin, % saturation, TIBC all low - Ferrlecit 125mg IV Daily x 12 doses Neutropenic 2.6 on AM labs - f/u HIV, CRP, ESR Endo: Hx of uncontrolled DM BG: elevated, but downtrending Hgb A1C: 10 - Lantus 10 units HS - ISS (high) Urinalysis (08/28/16): 3+ glucose, protein negative /Renal: BUN/Cr: WNL Integumentary: Non-healing, > 5cm ulcer noted on right ankle, Chronic venous stasis noted bilaterally Rt ankle Xray (08/28/16): Medial ankle ulcer appearing more extensive. Prior smooth medial distal tibial periosteal reaction. Contiguous right osteomyelitis cannot be excluded. Consider MRI (see full report) MRI Rt Ankle(08/30/16): Findings concerning for acute osteomyelits within disatl tibia, medial malleolus, and anteromedial talus. Superimposed osteonecrosis/ avascular necrosis cannot be excluded. Mild tenosynovitis on anterior/posterio tibial tendon sheath. (see full report) Dr. Bishop, ID consult: help appreciated - Recommend Vascular surgery consult, as pt with PVD at high risk for gangrene - Recommend bone biopsy Wound cx (08/28/16): Positive for Proteus Mirabilis, Gram Negative Luis, Corynebacterium - D/C Zosyn, Start Cipro 400mg Q12H MONOTHERAPY - f/u repeat culture Blood Cx (08/28/16): No growth x 3 days x 2 MRSA Cx: Not detected Dr. Lugo, Vascular surgery, consulted: - CT Angio Abd/Pelvis (08/30/16): Moderate soft plaque throughout lumbar aorta without aneurysm or stenosis. Major aortic branches unremarkable. - LLE: Severely stenotic distal tibioperoneal artery. Anterior and posterior tibial artery occluded and reconstitutes distally. 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 Severely stenotic distal tibioperoneal artery. Anterior tibial and posterior tibial artery are occluded. (see full reports) Wound care consult, help appreciated: - medihoney, then bulk dressing daily Prophylaxis: VTE: Holding anticoagulation due to acute drop in H&H SCDs held due to non-healing wounds on LE GI: Protonix 40mg IV Daily Transfer to telemetry per Dr. oRss. D/W Dr. Concetta Ferguson, PGY-1 <Huan Hylton M - Last Filed: 09/01/16 22:47> CCU Objective - Medications Active Medications: Active Medications Generic Name Dose Route Start Last Admin Trade Name Freq PRN Reason Stop Dose Admin Ferric Sodium Gluconate Complex 125 mg 08/29/16 10:00 09/01/16 11:02 Ferrlecit IVPB 09/06/16 10:01 125 mg DAILY LOUANN Administration Ciprofloxacin 200 mls @ 133 mls/hr 08/31/16 20:00 09/01/16 19:34 Cipro 400mg/200ml Dsw IVPB 133 mls/hr Q12H LOUANN Administration Insulin Glargine 10 unit 08/28/16 22:00 09/01/16 21:33 Lantus SC 10 units HS LOUANN Administration Insulin Human Regular 0 unit 08/28/16 16:30 09/01/16 17:43 Novolin R SC 2 unit ACHS LOUANN Administration Protocol Isosorbide Mononitrate 30 mg 08/29/16 17:15 09/01/16 09:32 Imdur PO 30 mg DAILY LOUANN Administration Metoprolol Succinate 12.5 mg 08/30/16 18:00 09/01/16 17:41 Toprol Xl PO 12.5 mg Q24H LOUANN Administration Pantoprazole Sodium 40 mg 09/01/16 07:30 09/01/16 08:01 Protonix Ec Tab PO 40 mg ACB LOUANN Administration Ranolazine 500 mg 08/29/16 18:00 09/01/16 17:40 Ranexa PO 500 mg BID LOUANN Administration Rosuvastatin Calcium 20 mg 08/28/16 22:00 09/01/16 21:33 Crestor PO 20 mg HS LOUANN Administration - Patient Studies Lab Studies: Microbiology Studies 08/28/16 10:30 Blood Culture - Preliminary Blood-Venous NO GROWTH AFTER 4 DAYS 08/28/16 11:05 Blood Culture - Preliminary Blood-Venous NO GROWTH AFTER 4 DAYS Lab Studies 09/01/16 09/01/16 09/01/16 Range/Units 21:12 16:55 11:46 WBC (4.8-10.8) K/uL RBC (4.40-5.90) Mil/uL Hgb (12.0-18.0) g/dL Hct (35.0-51.0) % MCV (80.0-94.0) fL MCH (27.0-31.0) pg MCHC (33.0-37.0) g/dL RDW (11.5-14.5) % Plt Count (130-400) K/uL MPV (7.2-11.7) fL Neut % (Auto) (50.0-75.0) % Lymph % (Auto) (20.0-40.0) % [place] % (Auto) (0.0-10.0) % Eos % (Auto) (0.0-4.0) % Baso % (Auto) (0.0-2.0) % Neut # (1.8-7.0) K/uL Lymph # (1.0-4.3) K/uL [place] # (0.0-0.8) K/uL Eos # (0.0-0.7) K/uL Baso # (0.0-0.2) K/uL Neutrophils % (Manual) (50-75) % Band Neutrophils % (0-2) % Lymphocytes % (Manual) (20-40) % Monocytes % (Manual) (0-10) % Eosinophils % (Manual) (0-4) % Platelet Estimate (NORMAL) Polychromasia Hypochromasia (manual) Poikilocytosis (manual Basophilic Stippling Anisocytosis (manual) Microcytosis (manual) Ovalocytes Schistocytes ESR (0-15) mm/hr Sodium (132-148) mmol/L Potassium (3.6-5.2) mmol/L Chloride (98-107) mmol/L Carbon Dioxide (22-30) mmol/L Anion Gap (10-20) BUN (9-20) mg/dL Creatinine (0.8-1.5) MG/DL Est GFR ( Amer) Est GFR (Non-Af Amer) POC Glucose (mg/dL) 270 H 155 H 358 H (65-110) mg/dL Random Glucose (75-110) mg/dL Calcium (8.6-10.4) mg/dl Phosphorus (2.5-4.5) mg/dL Magnesium (1.6-2.3) mg/dL Total Bilirubin (0.2-1.3) mg/dL AST (17-59) U/L ALT (21-72) U/L Alkaline Phosphatase (38-126) U/L C-React Prot High Sens (1.00-3.00) mg/L Total Protein (6.3-8.3) g/dL Albumin (3.5-5.0) g/dL Globulin (2.2-3.9) gm/dL Albumin/Globulin Ratio (1.0-2.1) HIV 1&2 Antibody Screen (NEGATIVE) 09/01/16 09/01/16 Range/Units 07:37 06:47 WBC 2.4 L (4.8-10.8) K/uL RBC 3.67 L (4.40-5.90) Mil/uL Hgb 9.3 L (12.0-18.0) g/dL Hct 28.0 L (35.0-51.0) % MCV 76.3 L (80.0-94.0) fL MCH 25.3 L (27.0-31.0) pg MCHC 33.2 (33.0-37.0) g/dL RDW 20.2 H (11.5-14.5) % Plt Count 135 (130-400) K/uL MPV 8.9 (7.2-11.7) fL Neut % (Auto) 23.3 L (50.0-75.0) % Lymph % (Auto) 44.7 H (20.0-40.0) % [place] % (Auto) 27.6 H (0.0-10.0) % Eos % (Auto) 3.9 (0.0-4.0) % Baso % (Auto) 0.5 (0.0-2.0) % Neut # 0.6 L (1.8-7.0) K/uL Lymph # 1.1 (1.0-4.3) K/uL [place] # 0.7 (0.0-0.8) K/uL Eos # 0.1 (0.0-0.7) K/uL Baso # 0.0 (0.0-0.2) K/uL Neutrophils % (Manual) 27 L (50-75) % Band Neutrophils % 1 (0-2) % Lymphocytes % (Manual) 44 H (20-40) % Monocytes % (Manual) 25 H (0-10) % Eosinophils % (Manual) 3 (0-4) % Platelet Estimate Normal (NORMAL) Polychromasia Slight Hypochromasia (manual) Slight Poikilocytosis (manual Slight Basophilic Stippling Slight Anisocytosis (manual) Slight Microcytosis (manual) Slight Ovalocytes Slight Schistocytes Slight ESR 84 H (0-15) mm/hr Sodium 136 (132-148) mmol/L Potassium 4.1 (3.6-5.2) mmol/L Chloride 104 (98-107) mmol/L Carbon Dioxide 22 (22-30) mmol/L Anion Gap 15 (10-20) BUN 11 (9-20) mg/dL Creatinine 1.2 (0.8-1.5) MG/DL Est GFR ( Amer) > 60 Est GFR (Non-Af Amer) 60 POC Glucose (mg/dL) 231 H (65-110) mg/dL Random Glucose 209 H (75-110) mg/dL Calcium 8.3 L (8.6-10.4) mg/dl Phosphorus 3.1 (2.5-4.5) mg/dL Magnesium 1.9 (1.6-2.3) mg/dL Total Bilirubin 0.6 (0.2-1.3) mg/dL AST 13 L (17-59) U/L ALT 18 L (21-72) U/L Alkaline Phosphatase 86 (38-126) U/L C-React Prot High Sens > 15.00 H (1.00-3.00) mg/L Total Protein 6.5 (6.3-8.3) g/dL Albumin 2.8 L (3.5-5.0) g/dL Globulin 3.7 (2.2-3.9) gm/dL Albumin/Globulin Ratio 0.8 L (1.0-2.1) HIV 1&2 Antibody Screen Negative (NEGATIVE) Laboratory Results - last 24 hr 09/01/16 09/01/16 09/01/16 06:47 07:37 11:46 WBC 2.4 L RBC 3.67 L Hgb 9.3 L Hct 28.0 L MCV 76.3 L MCH 25.3 L MCHC 33.2 RDW 20.2 H Plt Count 135 MPV 8.9 Neut % (Auto) 23.3 L Lymph % (Auto) 44.7 H [place] % (Auto) 27.6 H Eos % (Auto) 3.9 Baso % (Auto) 0.5 Neut # 0.6 L Lymph # 1.1 [place] # 0.7 Eos # 0.1 Baso # 0.0 Neutrophils % (Manual) 27 L Band Neutrophils % 1 Lymphocytes % (Manual) 44 H Monocytes % (Manual) 25 H Eosinophils % (Manual) 3 Platelet Estimate Normal Polychromasia Slight Hypochromasia (manual) Slight Poikilocytosis (manual Slight Basophilic Stippling Slight Anisocytosis (manual) Slight Microcytosis (manual) Slight Ovalocytes Slight Schistocytes Slight ESR 84 H Sodium 136 Potassium 4.1 Chloride 104 Carbon Dioxide 22 Anion Gap 15 BUN 11 Creatinine 1.2 Est GFR ( Amer) > 60 Est GFR (Non-Af Amer) 60 POC Glucose (mg/dL) 231 H 358 H Random Glucose 209 H Calcium 8.3 L Phosphorus 3.1 Magnesium 1.9 Total Bilirubin 0.6 AST 13 L ALT 18 L Alkaline Phosphatase 86 C-React Prot High Sens > 15.00 H Total Protein 6.5 Albumin 2.8 L Globulin 3.7 Albumin/Globulin Ratio 0.8 L HIV 1&2 Antibody Screen Negative 09/01/16 09/01/16 16:55 21:12 WBC RBC Hgb Hct MCV MCH MCHC RDW Plt Count MPV Neut % (Auto) Lymph % (Auto) [place] % (Auto) Eos % (Auto) Baso % (Auto) Neut # Lymph # [place] # Eos # Baso # Neutrophils % (Manual) Band Neutrophils % Lymphocytes % (Manual) Monocytes % (Manual) Eosinophils % (Manual) Platelet Estimate Polychromasia Hypochromasia (manual) Poikilocytosis (manual Basophilic Stippling Anisocytosis (manual) Microcytosis (manual) Ovalocytes Schistocytes ESR Sodium Potassium Chloride Carbon Dioxide Anion Gap BUN Creatinine Est GFR ( Amer) Est GFR (Non-Af Amer) POC Glucose (mg/dL) 155 H 270 H Random Glucose Calcium Phosphorus Magnesium Total Bilirubin AST ALT Alkaline Phosphatase C-React Prot High Sens Total Protein Albumin Globulin Albumin/Globulin Ratio HIV 1&2 Antibody Screen Critical Care Progress Note - Nutrition Nutrition: Nutrition Category Date Time Status Heart Healthy Diet [DIET] Diets 08/31/16 Lunch Active Attending/Attestation - Attestation I have personally seen and examined this patient.: Yes I have fully participated in the care of the patient.: Yes I have reviewed all pertinent clinical information: Yes Notes (Text): Today: Wednesday, August 31, 2016 The Patient was seen and examined at the bedside, Medical records reviewed, all clinical/lab/hemodynamic/radiographic data were reviewed and management issues were discussed and formulated, Events reviewed Pain issues, skin care, head of the bed elevation, glycemic control were addressed. Agree with above treatment plans as transcribed in Dr. Ferguson note
--- NOTE | 2016-08-31 19:11 | CP.PCM.PN ---
Subjective - Date & Time of Evaluation Date of Evaluation: 08/31/16 Time of Evaluation: 09:00 - Subjective Subjective: EVENTS NOTED GI AND VASCULAR WORK UP IN PROGRESS HAS MDRO IN WOUND FROM ANKLE UNCLEAR IF THIS IS OFFENDING ORGANISM- LIKELY POLYMICROBIAL AND COLONIZED BY RESISTANT BACTERIA IDEALLY A BONE BX SHOULD BE DONE TO EXCLUDE MRSA/ MTB CONT MONO RX WITH CIPRO FOR NOW Objective - Vital Signs/Intake and Output Vital Signs (last 24 hours): Temp Pulse Resp BP Pulse Ox 97.1 F L 70 15 139/56 L 99 08/31/16 14:30 08/31/16 18:00 08/31/16 18:00 08/31/16 17:29 08/31/16 18:00 Intake and Output: 08/31/16 09/01/16 18:59 06:59 Intake Total 1000 Output Total 750 Balance 250 - Medications Medications: Current Medications Ferric Sodium Gluconate Complex (Ferrlecit) 125 mg IVPB DAILY [facility] Stop: 09/06/16 10:01 Last Admin: 08/31/16 11:46 Dose: 125 mg Ciprofloxacin (Cipro 400mg/200ml Dsw) 200 mls @ 133 mls/hr IVPB Q12H [facility] Insulin Glargine (Lantus) 10 unit SC HS [facility] Last Admin: 08/30/16 21:13 Dose: 10 units Insulin Human Regular (Novolin R) 0 unit SC ACHS [facility] PRN Reason: Protocol Last Admin: 08/31/16 16:54 Dose: Not Given Isosorbide Mononitrate (Imdur) 30 mg PO DAILY [facility] Last Admin: 08/31/16 16:57 Dose: 30 mg Metoprolol Succinate (Toprol Xl) 12.5 mg PO Q24H [facility] Last Admin: 08/31/16 18:03 Dose: 12.5 mg Pantoprazole Sodium (Protonix Ec Tab) 40 mg PO ACB [facility] Ranolazine (Ranexa) 500 mg PO BID [facility] Last Admin: 08/31/16 17:49 Dose: 500 mg Rosuvastatin Calcium (Crestor) 20 mg PO HS [facility] Last Admin: 08/30/16 21:13 Dose: 20 mg - Labs Labs: 08/31/16 06:00 08/31/16 06:05 PT 13.7 SECONDS (9.7-12.2) H 08/31/16 06:00 INR 1.2 08/31/16 06:00 APTT 28 SECONDS (21-34) 08/31/16 06:00 - Constitutional Appears: Non-toxic, Cachectic, Chronically Ill - Head Exam Head Exam: NORMOCEPHALIC - Eye Exam Eye Exam: PERRL. absent: Scleral icterus - ENT Exam ENT Exam: Mucous Membranes Dry - Neck Exam Neck Exam: absent: Lymphadenopathy - Respiratory Exam Respiratory Exam: Decreased Breath Sounds, Rhonchi - Cardiovascular Exam Cardiovascular Exam: REGULAR RHYTHM - GI/Abdominal Exam GI & Abdominal Exam: Distended, Soft - Rectal Exam Rectal Exam: Deferred - Exam Exam: NORMAL INSPECTION - Extremities Exam Extremities Exam: Pedal Edema, Tenderness - Back Exam Back Exam: absent: CVA tenderness (L), CVA tenderness (R) - Neurological Exam Neurological Exam: Alert, Awake, Oriented x3 Assessment and Plan - Assessment and Plan (Free Text) Plan: PROBABLE CHRONIC OM ANKLE PVD R/O CA COLON
--- NOTE | 2016-08-31 19:52 | CP.PCM.PN ---
Subjective - Date & Time of Evaluation Date of Evaluation: 08/31/16 Time of Evaluation: 07:50 - Subjective Subjective: Vascular Surgery Dr. Lugo Pt S&E at bedside. NAEO. No complaints. Denies leg pain at this present time. Objective - Vital Signs/Intake and Output Vital Signs (last 24 hours): Temp Pulse Resp BP Pulse Ox 97.1 F L 70 15 139/56 L 99 08/31/16 14:30 08/31/16 18:00 08/31/16 18:00 08/31/16 17:29 08/31/16 18:00 Intake and Output: 08/31/16 09/01/16 18:59 06:59 Intake Total 1000 Output Total 750 Balance 250 - Medications Medications: Current Medications Ferric Sodium Gluconate Complex (Ferrlecit) 125 mg IVPB DAILY [facility] Stop: 09/06/16 10:01 Last Admin: 08/31/16 11:46 Dose: 125 mg Ciprofloxacin (Cipro 400mg/200ml Dsw) 200 mls @ 133 mls/hr IVPB Q12H [facility] Insulin Glargine (Lantus) 10 unit SC [facility] Last Admin: 08/30/16 21:13 Dose: 10 units Insulin Human Regular (Novolin R) 0 unit SC [facility] PRN Reason: Protocol Last Admin: 08/31/16 16:54 Dose: Not Given Isosorbide Mononitrate (Imdur) 30 mg PO DAILY [facility] Last Admin: 08/31/16 16:57 Dose: 30 mg Metoprolol Succinate (Toprol Xl) 12.5 mg PO Q24H [facility] Last Admin: 08/31/16 18:03 Dose: 12.5 mg Pantoprazole Sodium (Protonix Ec Tab) 40 mg PO ACB [facility] Ranolazine (Ranexa) 500 mg PO BID [facility] Last Admin: 08/31/16 17:49 Dose: 500 mg Rosuvastatin Calcium (Crestor) 20 mg PO HS [facility] Last Admin: 08/30/16 21:13 Dose: 20 mg - Labs Labs: 08/31/16 06:00 08/31/16 06:05 PT 13.7 SECONDS (9.7-12.2) H 08/31/16 06:00 INR 1.2 08/31/16 06:00 APTT 28 SECONDS (21-34) 08/31/16 06:00 - Constitutional Appears: No Acute Distress - Head Exam Head Exam: NORMOCEPHALIC - Eye Exam Eye Exam: Normal appearance - ENT Exam ENT Exam: Mucous Membranes Moist - Respiratory Exam Respiratory Exam: NORMAL BREATHING PATTERN - Cardiovascular Exam Cardiovascular Exam: +S1, +S2 - Extremities Exam Additional comments: R medial malleolar ulcer +popliteal pulses to palpation Leg bandages c/d/i. - Neurological Exam Neurological Exam: Alert, Awake - Psychiatric Exam Psychiatric exam: Normal Mood - Skin Skin Exam: Warm Assessment and Plan - Assessment and Plan (Free Text) Assessment: 71 y/o M w/ large, purulent, non-healing ulcer of right medial malleolus - Will require angiography this upcoming week -CTAngio: demonstrated stenotic distal tibioperoneal artery. (see report for full details) - F/u cultures - Abx as per infectious disease Further recs per Dr. Lugo
[2016-08-31] MEDS: Ciprofloxacin 400mg/200ml D5W 200 ML IVPB SCH (20:06)
[2016-08-31] MEDS: (Lantus) Insulin Glargine, Recombinant SC SCH (22:11)
[2016-09-01 07:52] LABS: BASO % 0.5 % (0.0-2.0); EOS # 0.1 K/uL (0.0-0.7); EOS % 3.9 % (0.0-4.0); LYMPH # 1.1 K/uL (1.0-4.3); LYMPH % 44.7 % (20.0-40.0); MEAN CELL VOLUME 76.3 fL (80.0-94.0); MEAN CORPUSCULAR HEMOGLOBIN 25.3 pg (27.0-31.0); MEAN CORPUSCULAR HGB CONC 33.2 g/dL (33.0-37.0); MEAN PLATELET VOLUME 8.9 fL (7.2-11.7); MONO # 0.7 K/uL (0.0-0.8); MONO % 27.6 % (0.0-10.0); NRBC % 0.1 % (0.0-2.0); PLATELET COUNT 135 K/uL (130-400); RED CELL DISTRIBUTION WIDTH 20.2 % (11.5-14.5); WHITE BLOOD COUNT 2.4 K/uL (4.8-10.8)
[2016-09-01 07:58] LABS: CHLORIDE 104 mmol/L (98-107)
[2016-09-01 07:59] LABS: POTASSIUM 4.1 mmol/L (3.6-5.2); SODIUM 136 mmol/L (132-148)
[2016-09-01 08:01] LABS: ALB/GLOB RATIO 0.8 (1.0-2.1); ALKALINE PHOSPHATASE 86 U/L (38-126); ALT/SGPT 18 U/L (21-72); AST/SGOT 13 U/L (17-59); BILIRUBIN,TOTAL 0.6 mg/dL (0.2-1.3); BLOOD UREA NITROGEN 11 mg/dL (9-20); CARBON DIOXIDE 22 mmol/L (22-30); GFR AFRICAN-AMERICAN > 60; GLUCOSE,RANDOM 209 mg/dL (75-110); TOTAL PROTEIN 6.5 g/dL (6.3-8.3)
[2016-09-01] MEDS: Ciprofloxacin 400mg/200ml D5W 200 ML IVPB SCH ×2 (08:01→19:34)
[2016-09-01] MEDS: Pantoprazole 40 mg EC Tab PO SCH (08:01)
[2016-09-01 08:02] LABS: CALCIUM 8.3 mg/dl (8.6-10.4); MAGNESIUM 1.9 mg/dL (1.6-2.3); PHOSPHOROUS 3.1 mg/dL (2.5-4.5)
[2016-09-01] MEDS: (Novolin R) Insulin Human Regular 100 units/ml vial SC SCH ×4 (08:02→23:00)
--- NOTE | 2016-09-01 08:42 | CP.PCM.PN ---
Subjective - Date & Time of Evaluation Date of Evaluation: 09/01/16 Time of Evaluation: 06:00 - Subjective Subjective: Surgery - Dr. Lugo Pt S&E. [place]. Pt was transferred to from ICU last night. He denies any pain in the legs. No complaints. Objective - Vital Signs/Intake and Output Vital Signs (last 24 hours): Temp Pulse Resp BP Pulse Ox 98.0 F 62 20 139/63 99 09/01/16 01:58 09/01/16 01:58 09/01/16 01:58 09/01/16 01:58 09/01/16 01:58 Intake and Output: 09/01/16 09/01/16 06:59 18:59 Intake Total 620 Output Total 300 Balance 320 - Medications Medications: Current Medications Ferric Sodium Gluconate Complex (Ferrlecit) 125 mg IVPB DAILY [facility] Stop: 09/06/16 10:01 Last Admin: 08/31/16 11:46 Dose: 125 mg Ciprofloxacin (Cipro 400mg/200ml Dsw) 200 mls @ 133 mls/hr IVPB Q12H [facility] Last Admin: 09/01/16 08:01 Dose: 133 mls/hr Insulin Glargine (Lantus) 10 unit SC [facility] Last Admin: 08/31/16 22:11 Dose: 10 units Insulin Human Regular (Novolin R) 0 unit SC [facility] PRN Reason: Protocol Last Admin: 09/01/16 08:02 Dose: 4 unit Isosorbide Mononitrate (Imdur) 30 mg PO DAILY [facility] Last Admin: 08/31/16 16:57 Dose: 30 mg Metoprolol Succinate (Toprol Xl) 12.5 mg PO Q24H [facility] Last Admin: 08/31/16 18:03 Dose: 12.5 mg Pantoprazole Sodium (Protonix Ec Tab) 40 mg PO ACB [facility] Last Admin: 09/01/16 08:01 Dose: 40 mg Ranolazine (Ranexa) 500 mg PO BID [facility] Last Admin: 08/31/16 17:49 Dose: 500 mg Rosuvastatin Calcium (Crestor) 20 mg PO HS [facility] Last Admin: 08/31/16 22:11 Dose: 20 mg - Labs Labs: 09/01/16 07:37 09/01/16 07:37 PT 13.7 SECONDS (9.7-12.2) H 08/31/16 06:00 INR 1.2 08/31/16 06:00 APTT 28 SECONDS (21-34) 08/31/16 06:00 - Constitutional Appears: No Acute Distress - Head Exam Head Exam: ATRAUMATIC, NORMAL INSPECTION, NORMOCEPHALIC - Respiratory Exam Respiratory Exam: NORMAL BREATHING PATTERN. absent: Respiratory Distress - Extremities Exam Additional comments: RLE w/ nonhealing ulcer, dressing in place w/ small amt of drainage - Neurological Exam Neurological Exam: Alert, Oriented x3 - Psychiatric Exam Psychiatric exam: Normal Affect, Normal Mood Assessment and Plan - Assessment and Plan (Free Text) Assessment: 71M w/ large, purulent, non-healing ulcer of right medial malleolus -Continue IV Abx as per ID -Poss. Angiography later this week Further recs per Dr. Lugo
[2016-09-01] MEDS: Ferric Sodium Gluconat Complex 62.5 mg/5 ml Vial IVPB SCH ×2 (09:32→11:02)
[2016-09-01] MEDS: Ranolazine 500 mg Extended Release Tablets PO SCH ×2 (09:32→17:40)
[2016-09-01 09:38] LABS: EOSINOPHIL 3 % (0-4); NEUTROPHIL 27 % (50-75); TOTAL CELLS COUNTED 100
[2016-09-01 09:50] LABS: ERYTHROCYTE SEDIMENTATION RATE 84 mm/hr (0-15)
--- NOTE | 2016-09-01 10:31 | CP.PCM.PN ---
Subjective - Date & Time of Evaluation Date of Evaluation: 09/01/16 Time of Evaluation: 10:30 - Subjective Subjective: will schedule for angio to treat tibial disease on right Objective - Vital Signs/Intake and Output Vital Signs (last 24 hours): Temp Pulse Resp BP Pulse Ox 97.8 F 67 20 130/58 L 97 09/01/16 07:37 09/01/16 07:37 09/01/16 07:37 09/01/16 07:37 09/01/16 07:37 Intake and Output: 09/01/16 09/01/16 06:59 18:59 Intake Total 620 Output Total 300 Balance 320 - Medications Medications: Current Medications Ferric Sodium Gluconate Complex (Ferrlecit) 125 mg IVPB DAILY [facility] Stop: 09/06/16 10:01 Last Admin: 08/31/16 11:46 Dose: 125 mg Ciprofloxacin (Cipro 400mg/200ml Dsw) 200 mls @ 133 mls/hr IVPB Q12H [facility] Last Admin: 09/01/16 08:01 Dose: 133 mls/hr Insulin Glargine (Lantus) 10 unit SC [facility] Last Admin: 08/31/16 22:11 Dose: 10 units Insulin Human Regular (Novolin R) 0 unit SC [facility] PRN Reason: Protocol Last Admin: 09/01/16 08:02 Dose: 4 unit Isosorbide Mononitrate (Imdur) 30 mg PO DAILY [facility] Last Admin: 09/01/16 09:32 Dose: 30 mg Metoprolol Succinate (Toprol Xl) 12.5 mg PO Q24H [facility] Last Admin: 08/31/16 18:03 Dose: 12.5 mg Pantoprazole Sodium (Protonix Ec Tab) 40 mg PO ACB [facility] Last Admin: 09/01/16 08:01 Dose: 40 mg Ranolazine (Ranexa) 500 mg PO BID [facility] Last Admin: 09/01/16 09:32 Dose: 500 mg Rosuvastatin Calcium (Crestor) 20 mg PO HS [facility] Last Admin: 08/31/16 22:11 Dose: 20 mg - Labs Labs: 09/01/16 07:37 09/01/16 07:37 PT 13.7 SECONDS (9.7-12.2) H 08/31/16 06:00 INR 1.2 08/31/16 06:00 APTT 28 SECONDS (21-34) 08/31/16 06:00
--- NOTE | 2016-09-01 14:05 | CP.PCM.PN ---
Subjective - Date & Time of Evaluation Date of Evaluation: 09/01/16 Time of Evaluation: 12:20 - Subjective Subjective: clinically same Objective - Vital Signs/Intake and Output Vital Signs (last 24 hours): Temp Pulse Resp BP Pulse Ox 97.8 F 67 20 130/58 L 97 09/01/16 07:37 09/01/16 07:37 09/01/16 07:37 09/01/16 07:37 09/01/16 07:37 Intake and Output: 09/01/16 09/01/16 06:59 18:59 Intake Total 620 Output Total 300 Balance 320 - Medications Medications: Current Medications Ferric Sodium Gluconate Complex (Ferrlecit) 125 mg IVPB DAILY [facility] Stop: 09/06/16 10:01 Last Admin: 09/01/16 11:02 Dose: 125 mg Ciprofloxacin (Cipro 400mg/200ml Dsw) 200 mls @ 133 mls/hr IVPB Q12H [facility] Last Admin: 09/01/16 08:01 Dose: 133 mls/hr Insulin Glargine (Lantus) 10 unit SC [facility] Last Admin: 08/31/16 22:11 Dose: 10 units Insulin Human Regular (Novolin R) 0 unit SC [facility] PRN Reason: Protocol Last Admin: 09/01/16 12:47 Dose: 10 unit Isosorbide Mononitrate (Imdur) 30 mg PO DAILY [facility] Last Admin: 09/01/16 09:32 Dose: 30 mg Metoprolol Succinate (Toprol Xl) 12.5 mg PO Q24H [facility] Last Admin: 08/31/16 18:03 Dose: 12.5 mg Pantoprazole Sodium (Protonix Ec Tab) 40 mg PO ACB [facility] Last Admin: 09/01/16 08:01 Dose: 40 mg Ranolazine (Ranexa) 500 mg PO BID [facility] Last Admin: 09/01/16 09:32 Dose: 500 mg Rosuvastatin Calcium (Crestor) 20 mg PO HS [facility] Last Admin: 08/31/16 22:11 Dose: 20 mg - Labs Labs: 09/01/16 07:37 09/01/16 07:37 PT 13.7 SECONDS (9.7-12.2) H 08/31/16 06:00 INR 1.2 08/31/16 06:00 APTT 28 SECONDS (21-34) 08/31/16 06:00 - Constitutional Appears: Well - Head Exam Head Exam: ATRAUMATIC, NORMAL INSPECTION, NORMOCEPHALIC - Eye Exam Eye Exam: EOMI, Normal appearance, PERRL Pupil Exam: NORMAL ACCOMODATION, PERRL - ENT Exam ENT Exam: Mucous Membranes Moist, Normal Exam - Neck Exam Neck Exam: Full ROM, Normal Inspection. absent: Lymphadenopathy - Respiratory Exam Respiratory Exam: Decreased Breath Sounds - Cardiovascular Exam Cardiovascular Exam: REGULAR RHYTHM, +S1, +S2 - GI/Abdominal Exam GI & Abdominal Exam: Soft, Diminished Bowel Sounds - Rectal Exam Rectal Exam: Deferred Assessment and Plan - Assessment and Plan (Free Text) Plan: DR daisy sawant. H/H monitor MRI +ve for osteomyelities conit. Iv antibiotics f/u labs f/u biopsy result after EGD recommended colonoscopy
[2016-09-01] MEDS: Metoprolol Succinate 12.5 mg XL PO SCH (17:41)
[2016-09-01] MEDS: (Lantus) Insulin Glargine, Recombinant SC SCH (21:33)
[2016-09-02] MEDS: Ciprofloxacin 400mg/200ml D5W 200 ML IVPB SCH ×2 (08:25→19:45)
[2016-09-02] MEDS: Pantoprazole 40 mg EC Tab PO SCH (08:26)
[2016-09-02] MEDS: (Novolin R) Insulin Human Regular 100 units/ml vial SC SCH ×4 (08:26→21:25)
[2016-09-02] MEDS: Ferric Sodium Gluconat Complex 62.5 mg/5 ml Vial IVPB SCH (09:28)
[2016-09-02] MEDS: Ranolazine 500 mg Extended Release Tablets PO SCH ×2 (09:28→17:46)
--- NOTE | 2016-09-02 11:39 | CP.PCM.PN ---
Subjective - Date & Time of Evaluation Date of Evaluation: 09/02/16 Time of Evaluation: 12:20 - Subjective Subjective: clinically same Objective - Vital Signs/Intake and Output Vital Signs (last 24 hours): Temp Pulse Resp BP Pulse Ox 97.6 F 99 H 20 124/63 98 09/02/16 07:00 09/02/16 07:00 09/02/16 07:00 09/02/16 07:00 09/02/16 07:00 Intake and Output: 09/02/16 09/02/16 06:59 18:59 Output Total 200 Balance -200 - Medications Medications: Current Medications Ferric Sodium Gluconate Complex (Ferrlecit) 125 mg IVPB DAILY [facility] Stop: 09/06/16 10:01 Last Admin: 09/02/16 09:28 Dose: 125 mg Ciprofloxacin (Cipro 400mg/200ml Dsw) 200 mls @ 133 mls/hr IVPB Q12H [facility] Last Admin: 09/02/16 08:25 Dose: 133 mls/hr Insulin Glargine (Lantus) 10 unit SC [facility] Last Admin: 09/01/16 21:33 Dose: 10 units Insulin Human Regular (Novolin R) 0 unit SC [facility] PRN Reason: Protocol Last Admin: 09/02/16 08:26 Dose: 2 unit Isosorbide Mononitrate (Imdur) 30 mg PO DAILY [facility] Last Admin: 09/02/16 09:28 Dose: 30 mg Metoprolol Succinate (Toprol Xl) 12.5 mg PO Q24H [facility] Last Admin: 09/01/16 17:41 Dose: 12.5 mg Pantoprazole Sodium (Protonix Ec Tab) 40 mg PO ACB [facility] Last Admin: 09/02/16 08:26 Dose: 40 mg Ranolazine (Ranexa) 500 mg PO BID [facility] Last Admin: 09/02/16 09:28 Dose: 500 mg Rosuvastatin Calcium (Crestor) 20 mg PO HS [facility] Last Admin: 09/01/16 21:33 Dose: 20 mg - Labs Labs: 09/01/16 07:37 09/01/16 07:37 PT 13.7 SECONDS (9.7-12.2) H 08/31/16 06:00 INR 1.2 08/31/16 06:00 APTT 28 SECONDS (21-34) 08/31/16 06:00 - Constitutional Appears: Well - Head Exam Head Exam: ATRAUMATIC, NORMAL INSPECTION, NORMOCEPHALIC - Eye Exam Eye Exam: EOMI, Normal appearance, PERRL Pupil Exam: NORMAL ACCOMODATION, PERRL - ENT Exam ENT Exam: Mucous Membranes Moist, Normal Exam - Neck Exam Neck Exam: Full ROM, Normal Inspection. absent: Lymphadenopathy - Respiratory Exam Respiratory Exam: Decreased Breath Sounds - Cardiovascular Exam Cardiovascular Exam: REGULAR RHYTHM, +S1, +S2 - GI/Abdominal Exam GI & Abdominal Exam: Soft, Diminished Bowel Sounds - Rectal Exam Rectal Exam: Deferred Assessment and Plan - Assessment and Plan (Free Text) Plan: DR daisy Lugo for angio [place]. H/H monito conit. Iv antibiotic f/u labs
--- NOTE | 2016-09-02 15:07 | CP.PCM.PN ---
Subjective - Date & Time of Evaluation Date of Evaluation: 09/02/16 Time of Evaluation: 09:00 - Subjective Subjective: proteus/pseudomonas from wound iv rx in progress for angio with dr Lugo Objective - Vital Signs/Intake and Output Vital Signs (last 24 hours): Temp Pulse Resp BP Pulse Ox 97.6 F 68 20 124/63 98 09/02/16 07:00 09/02/16 09:00 09/02/16 07:00 09/02/16 07:00 09/02/16 07:00 Intake and Output: 09/02/16 09/02/16 06:59 18:59 Output Total 200 Balance -200 - Medications Medications: Current Medications Ferric Sodium Gluconate Complex (Ferrlecit) 125 mg IVPB DAILY [facility] Stop: 09/06/16 10:01 Last Admin: 09/02/16 09:28 Dose: 125 mg Ciprofloxacin (Cipro 400mg/200ml Dsw) 200 mls @ 133 mls/hr IVPB Q12H [facility] Last Admin: 09/02/16 08:25 Dose: 133 mls/hr Insulin Glargine (Lantus) 10 unit SC [facility] Last Admin: 09/01/16 21:33 Dose: 10 units Insulin Human Regular (Novolin R) 0 unit SC [facility] PRN Reason: Protocol Last Admin: 09/02/16 13:07 Dose: 8 unit Isosorbide Mononitrate (Imdur) 30 mg PO DAILY [facility] Last Admin: 09/02/16 09:28 Dose: 30 mg Metoprolol Succinate (Toprol Xl) 12.5 mg PO Q24H [facility] Last Admin: 09/01/16 17:41 Dose: 12.5 mg Pantoprazole Sodium (Protonix Ec Tab) 40 mg PO ACB [facility] Last Admin: 09/02/16 08:26 Dose: 40 mg Ranolazine (Ranexa) 500 mg PO BID [facility] Last Admin: 09/02/16 09:28 Dose: 500 mg Rosuvastatin Calcium (Crestor) 20 mg PO HS [facility] Last Admin: 09/01/16 21:33 Dose: 20 mg - Labs Labs: 09/01/16 07:37 09/01/16 07:37 PT 13.7 SECONDS (9.7-12.2) H 08/31/16 06:00 INR 1.2 08/31/16 06:00 APTT 28 SECONDS (21-34) 08/31/16 06:00 - Constitutional Appears: Non-toxic, Chronically Ill - Head Exam Head Exam: NORMOCEPHALIC - Eye Exam Eye Exam: PERRL. absent: Scleral icterus - ENT Exam ENT Exam: Mucous Membranes Dry, Normal External Ear Exam - Neck Exam Neck Exam: absent: Lymphadenopathy - Respiratory Exam Respiratory Exam: Decreased Breath Sounds, Rhonchi - Cardiovascular Exam Cardiovascular Exam: REGULAR RHYTHM, +S1, +S2 - GI/Abdominal Exam GI & Abdominal Exam: Distended, Soft. absent: Tenderness - Rectal Exam Rectal Exam: Deferred - Exam Exam: NORMAL INSPECTION - Extremities Exam Extremities Exam: absent: Calf Tenderness, Pedal Edema - Back Exam Back Exam: absent: CVA tenderness (L), CVA tenderness (R) - Neurological Exam Neurological Exam: Alert, Awake, Oriented x3 - Psychiatric Exam Psychiatric exam: Depressed - Skin Skin Exam: Dry Assessment and Plan - Assessment and Plan (Free Text) Plan: cont iv rx for ulcer needs angio recc: mri ankle r/o om
[2016-09-02] MEDS: Metoprolol Succinate 12.5 mg XL PO SCH (17:46)
[2016-09-02] MEDS: (Lantus) Insulin Glargine, Recombinant SC SCH (21:50)
[2016-09-03] MEDS: Pantoprazole 40 mg EC Tab PO SCH (08:31)
[2016-09-03] MEDS: Ciprofloxacin 400mg/200ml D5W 200 ML IVPB SCH ×2 (08:31→19:25)
[2016-09-03] MEDS: (Novolin R) Insulin Human Regular 100 units/ml vial SC SCH ×4 (08:31→22:01)
--- NOTE | 2016-09-03 08:46 | CP.PCM.PN ---
Subjective - Date & Time of Evaluation Date of Evaluation: 09/03/16 Time of Evaluation: 08:43 - Subjective Subjective: PGY-[address] Lugo Patient seen and examined. Patient states he is eating well. Patient with complaint of pain in right foot. Objective - Vital Signs/Intake and Output Vital Signs (last 24 hours): Temp Pulse Resp BP Pulse Ox 97.5 F L 58 L 19 127/61 98 09/03/16 07:05 09/03/16 07:05 09/03/16 07:05 09/03/16 07:05 09/03/16 07:05 Intake and Output: 09/03/16 09/03/16 06:59 18:59 Intake Total 440 Output Total 500 Balance -60 - Medications Medications: Current Medications Ferric Sodium Gluconate Complex (Ferrlecit) 125 mg IVPB DAILY [facility] Stop: 09/06/16 10:01 Last Admin: 09/02/16 09:28 Dose: 125 mg Ciprofloxacin (Cipro 400mg/200ml Dsw) 200 mls @ 133 mls/hr IVPB Q12H [facility] Last Admin: 09/03/16 08:31 Dose: 133 mls/hr Insulin Glargine (Lantus) 10 unit SC [facility] Last Admin: 09/02/16 21:50 Dose: 10 units Insulin Human Regular (Novolin R) 0 unit SC [facility] PRN Reason: Protocol Last Admin: 09/03/16 08:31 Dose: 6 unit Isosorbide Mononitrate (Imdur) 30 mg PO DAILY [facility] Last Admin: 09/02/16 09:28 Dose: 30 mg Metoprolol Succinate (Toprol Xl) 12.5 mg PO Q24H [facility] Last Admin: 09/02/16 17:46 Dose: 12.5 mg Pantoprazole Sodium (Protonix Ec Tab) 40 mg PO ACB [facility] Last Admin: 09/03/16 08:31 Dose: 40 mg Ranolazine (Ranexa) 500 mg PO BID [facility] Last Admin: 09/02/16 17:46 Dose: 500 mg Rosuvastatin Calcium (Crestor) 20 mg PO HS [facility] Last Admin: 09/02/16 21:50 Dose: 20 mg - Labs Labs: 09/01/16 07:37 09/01/16 07:37 PT 13.7 SECONDS (9.7-12.2) H 08/31/16 06:00 INR 1.2 08/31/16 06:00 APTT 28 SECONDS (21-34) 08/31/16 06:00 - Constitutional Appears: Non-toxic, No Acute Distress - Head Exam Head Exam: ATRAUMATIC, NORMOCEPHALIC - Extremities Exam Additional comments: right foot with purulent nonhealing ulcer to medial malleolus - Neurological Exam Neurological Exam: Alert, Awake - Psychiatric Exam Psychiatric exam: Normal Affect - Skin Skin Exam: Warm Assessment and Plan - Assessment and Plan (Free Text) Assessment: 71M w/ large, purulent, non-healing ulcer of right medial malleolus - Continue IV Abx as per ID - Pt to have angio tomorrow to treat tibial disease on right - further recs per Dr. Lugo
[2016-09-03] MEDS: Ranolazine 500 mg Extended Release Tablets PO SCH ×2 (10:08→17:37)
--- NOTE | 2016-09-03 11:12 | CP.PCM.PN ---
Subjective - Date & Time of Evaluation Date of Evaluation: 09/03/16 Time of Evaluation: 10:20 - Subjective Subjective: PGY2 Medicine Note - Dr. Tim Ramírez's Service: Patient seen and examined at bedside this AM. Patient is aware of plan for surgery tomorrow. Patient has no complaints at this time. Objective - Vital Signs/Intake and Output Vital Signs (last 24 hours): Temp Pulse Resp BP Pulse Ox 97.5 F L 58 L 19 127/61 98 09/03/16 07:05 09/03/16 07:05 09/03/16 07:05 09/03/16 07:05 09/03/16 07:05 Intake and Output: 09/03/16 09/03/16 06:59 18:59 Intake Total 440 Output Total 500 Balance -60 - Medications Medications: Current Medications Ferric Sodium Gluconate Complex (Ferrlecit) 125 mg IVPB DAILY [facility] Stop: 09/06/16 10:01 Last Admin: 09/02/16 09:28 Dose: 125 mg Ciprofloxacin (Cipro 400mg/200ml Dsw) 200 mls @ 133 mls/hr IVPB Q12H [facility] Last Admin: 09/03/16 08:31 Dose: 133 mls/hr Insulin Glargine (Lantus) 10 unit SC HS [facility] Last Admin: 09/02/16 21:50 Dose: 10 units Insulin Human Regular (Novolin R) 0 unit SC ACHS [facility] PRN Reason: Protocol Last Admin: 09/03/16 08:31 Dose: 6 unit Isosorbide Mononitrate (Imdur) 30 mg PO DAILY [facility] Last Admin: 09/03/16 10:08 Dose: 30 mg Metoprolol Succinate (Toprol Xl) 12.5 mg PO Q24H [facility] Last Admin: 09/02/16 17:46 Dose: 12.5 mg Pantoprazole Sodium (Protonix Ec Tab) 40 mg PO ACB [facility] Last Admin: 09/03/16 08:31 Dose: 40 mg Ranolazine (Ranexa) 500 mg PO BID [facility] Last Admin: 09/03/16 10:08 Dose: 500 mg Rosuvastatin Calcium (Crestor) 20 mg PO HS [facility] Last Admin: 09/02/16 21:50 Dose: 20 mg - Labs Labs: 09/01/16 07:37 09/01/16 07:37 PT 13.7 SECONDS (9.7-12.2) H 08/31/16 06:00 INR 1.2 08/31/16 06:00 APTT 28 SECONDS (21-34) 08/31/16 06:00 - Constitutional Appears: Non-toxic, No Acute Distress, Cachectic - Head Exam Head Exam: NORMAL INSPECTION - Eye Exam Eye Exam: EOMI - ENT Exam ENT Exam: Mucous Membranes Moist - Respiratory Exam Respiratory Exam: Clear to Ausculation Bilateral, NORMAL BREATHING PATTERN. absent: Rales, Rhonchi, Wheezes - Cardiovascular Exam Cardiovascular Exam: REGULAR RHYTHM, +S1, +S2. absent: Gallop, Rubs, Murmur - GI/Abdominal Exam GI & Abdominal Exam: Soft, Normal Bowel Sounds. 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 Bishop - help appreciated Surgery consulted- Dr. Lugo - help appreciated Blood cultures negative after 5 days 08/28/16 Wound culture - positive for proteus mirabilis, pseudomonas aeruginosa and corynebacterium species 08/30/16 MRI ankle - positive for osteomyelsitis. prominent ulceration seen within medial soft tissues at the level of the left ankle. Marked signal abnormality seen within medial malleolus and distal tibia at the ankle joint space with heterogeneously increased STIR signal with patchy decreased T1 signal concerning for an acute osteomyelitis. Superimposed osteonecrosis and or avascular necrosis cannot entirely be excluded. Some patchy reactive signal with increased STIR and mild patchy decreased T1 signal noted within the anteromedial talus which may represent some developing acute osteomyelsitis. Mild tenosynovitis of the anterior tibial tensionsheath and posterior tendon sheath. Cipro 400mg IVPB Q12H started 08/31/16 OR tomorrow for angion to treat right tibial disease DM RISS Lantus 10U SC HS HTN Imdur 30mg PO daily Toprol XL 12.5mg PO daily Hyperlipidemia Crestor 20mg PO HS Anemia Ferrlecit 125mg IVPB daily Prophylaxis Protonix 40mg PO ACB SCDs contraindicated secondary to infection All management per Dr. Tim Ramírez
[2016-09-03] MEDS: Ferric Sodium Gluconat Complex 62.5 mg/5 ml Vial IVPB SCH (12:35)
[2016-09-03] MEDS: Metoprolol Succinate 12.5 mg XL PO SCH (17:37)
--- NOTE | 2016-09-03 17:52 | CP.PCM.PN ---
Subjective - Date & Time of Evaluation Date of Evaluation: 09/03/16 Time of Evaluation: 12:20 - Subjective Subjective: clinically same Objective - Vital Signs/Intake and Output Vital Signs (last 24 hours): Temp Pulse Resp BP Pulse Ox 98.2 F 61 18 116/63 98 09/03/16 16:00 09/03/16 16:00 09/03/16 16:00 09/03/16 16:00 09/03/16 07:05 Intake and Output: 09/03/16 09/03/16 06:59 18:59 Intake Total 440 Output Total 500 Balance -60 - Medications Medications: Current Medications Ferric Sodium Gluconate Complex (Ferrlecit) 125 mg IVPB DAILY [facility] Stop: 09/06/16 10:01 Last Admin: 09/03/16 12:35 Dose: 125 mg Ciprofloxacin (Cipro 400mg/200ml Dsw) 200 mls @ 133 mls/hr IVPB Q12H [facility] Last Admin: 09/03/16 08:31 Dose: 133 mls/hr Insulin Glargine (Lantus) 10 unit SC [facility] Last Admin: 09/02/16 21:50 Dose: 10 units Insulin Human Regular (Novolin R) 0 unit SC [facility] PRN Reason: Protocol Last Admin: 09/03/16 17:37 Dose: 12 unit Isosorbide Mononitrate (Imdur) 30 mg PO DAILY [facility] Last Admin: 09/03/16 10:08 Dose: 30 mg Metoprolol Succinate (Toprol Xl) 12.5 mg PO Q24H [facility] Last Admin: 09/03/16 17:37 Dose: 12.5 mg Pantoprazole Sodium (Protonix Ec Tab) 40 mg PO ACB [facility] Last Admin: 09/03/16 08:31 Dose: 40 mg Ranolazine (Ranexa) 500 mg PO BID [facility] Last Admin: 09/03/16 17:37 Dose: 500 mg Rosuvastatin Calcium (Crestor) 20 mg PO HS [facility] Last Admin: 09/02/16 21:50 Dose: 20 mg - Labs Labs: 09/01/16 07:37 09/01/16 07:37 PT 13.7 SECONDS (9.7-12.2) H 08/31/16 06:00 INR 1.2 08/31/16 06:00 APTT 28 SECONDS (21-34) 08/31/16 06:00 - Constitutional Appears: Well - Head Exam Head Exam: ATRAUMATIC, NORMAL INSPECTION, NORMOCEPHALIC - Eye Exam Eye Exam: EOMI, Normal appearance, PERRL Pupil Exam: NORMAL ACCOMODATION, PERRL - ENT Exam ENT Exam: Mucous Membranes Moist, Normal Exam - Neck Exam Neck Exam: Full ROM, Normal Inspection. absent: Lymphadenopathy - Respiratory Exam Respiratory Exam: Decreased Breath Sounds - Cardiovascular Exam Cardiovascular Exam: REGULAR RHYTHM, +S1, +S2 - GI/Abdominal Exam GI & Abdominal Exam: Soft, Diminished Bowel Sounds - Rectal Exam Rectal Exam: Deferred Assessment and Plan - Assessment and Plan (Free Text) Plan: DR daisy Lugo angio schedued tomorow savana. H/H monitor savana, wound car conit. Iv antibiotics
[2016-09-03] MEDS: (Lantus) Insulin Glargine, Recombinant SC SCH (22:05)
[2016-09-04 06:30] LABS: INR 1.2
[2016-09-04 07:33] LABS: BASO % 0.4 % (0.0-2.0); EOS # 0.1 K/uL (0.0-0.7); HEMATOCRIT 28.8 % (35.0-51.0); LYMPH # 1.2 K/uL (1.0-4.3); LYMPH % 50.4 % (20.0-40.0); MEAN CELL VOLUME 76.4 fL (80.0-94.0); MEAN CORPUSCULAR HEMOGLOBIN 25.8 pg (27.0-31.0); MEAN CORPUSCULAR HGB CONC 33.7 g/dL (33.0-37.0); MEAN PLATELET VOLUME 9.8 fL (7.2-11.7); MONO # 0.5 K/uL (0.0-0.8); MONO % 21.2 % (0.0-10.0); NRBC % 0.2 % (0.0-2.0); PLATELET COUNT 131 K/uL (130-400); RED CELL DISTRIBUTION WIDTH 20.4 % (11.5-14.5); WHITE BLOOD COUNT 2.3 K/uL (4.8-10.8)
[2016-09-04 07:50] LABS: CHLORIDE 102 mmol/L (98-107); POTASSIUM 3.9 mmol/L (3.6-5.2); SODIUM 135 mmol/L (132-148)
[2016-09-04 07:52] LABS: ALB/GLOB RATIO 0.8 (1.0-2.1); ALKALINE PHOSPHATASE 88 U/L (38-126); ALT/SGPT 25 U/L (21-72); AST/SGOT 30 U/L (17-59); BILIRUBIN,TOTAL 0.3 mg/dL (0.2-1.3); BLOOD UREA NITROGEN 17 mg/dL (9-20); CARBON DIOXIDE 24 mmol/L (22-30); GFR AFRICAN-AMERICAN > 60; GLUCOSE,RANDOM 183 mg/dL (75-110); TOTAL PROTEIN 7.1 g/dL (6.3-8.3)
[2016-09-04 07:53] LABS: CALCIUM 8.5 mg/dl (8.6-10.4); PHOSPHOROUS 2.8 mg/dL (2.5-4.5)
[2016-09-04] MEDS: Pantoprazole 40 mg EC Tab PO SCH (08:00)
[2016-09-04] MEDS: (Novolin R) Insulin Human Regular 100 units/ml vial SC SCH ×4 (08:00→22:00)
[2016-09-04 08:57] LABS: EOSINOPHIL 6 % (0-4); TOTAL CELLS COUNTED 50
[2016-09-04 08:58] LABS: NEUTROPHIL 24 % (50-75)
[2016-09-04 09:01] LABS: LARGE PLATELETS PRESENT
[2016-09-04] MEDS: Ranolazine 500 mg Extended Release Tablets PO SCH ×2 (09:53→17:57)
[2016-09-04] MEDS: Ferric Sodium Gluconat Complex 62.5 mg/5 ml Vial IVPB SCH (09:57)
[2016-09-04] MEDS: Ciprofloxacin 400mg/200ml D5W 200 ML IVPB SCH (09:58)
[2016-09-04] MEDS ORDERED: Propofol 10 mg/ml Inj (20 ML) ONE (12:42)
[2016-09-04] MEDS ORDERED: Midazolam 2 MG/2 ML VIAL ONE (12:42)
[2016-09-04] MEDS ORDERED: Iodixanol 320 MG/ML 200 ML BOTTLE IV ONE ×2 (12:51→13:06)
--- NOTE | 2016-09-04 13:58 | PCM.SURG1 ---
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 single vessel runoff via peroneal with reconsituion of posterior tibial at ankle. aneurysmal appearing popliteal arteries Post-Operative Diagnosis: same Operation Performed: aortofemoral angiogram via lefrt groin. selective catherization of right side. balloon angioplasty of peroneal artery. TOVA 3.0x33mm to tp trunk. perclose left groin Specimen/Specimens Removed: 0 Estimated Blood Loss: EBL {In ML}: 25 Blood Products Given: N/A Drains Used: No Drains Post-Op Condition: Good Date of Surgery/Procedure: 09/04/16 Time of Surgery/Procedure: 14:01
[2016-09-04] MEDS: Dextrose 5%/0.45% NS 1,000 ML IV SCH ×2 (14:20→17:53)
--- NOTE | 2016-09-04 14:44 | VAS ---
DATE: 09/04/2016 PREOPERATIVE DIAGNOSIS: Ischemic ulcer, right foot. PROCEDURES CARRIED OUT: Aortofemoral angiogram with selective catheterization of right femoral arter y, balloon angioplasty of tibioperoneal trunk and peroneal artery, placement of drug-eluting stent 3. 0 x 33 mm into the tibioperoneal trunk. SURGEON: Mitchel Lugo MD. COMPUTER SYSTEMS MANAGER: None. ANESTHESIOLOGIST: Tesfaye Payne CRNA. ANESTHESIA: Local with sedation. INDICATIONS: The patient is a 71-year-old male with an ischemic ulceration on the foot. OPERATIVE FINDINGS: The aorta and renal arteries are free of significant occlusive disease except fo r the right internal iliac artery which was severely diseased. The common femoral, superficial femor al, profunda femoris arteries were widely patent. On both sides, the vessels were widely patent down to the area of the knee. On the right side, which was the most affected side, the anterior tibial a rtery was occluded and did not reconstitute in the foot. The posterior tibial artery reconstituted v ia collaterals at the ankle. The peroneal artery was the main vessel into the foot. The tibioperone al trunk had a 99% stenosis at its proximal position and other severe disease through it. In additio n, the proximal portion of the peroneal artery had approximately 70% stenosis. On the left side, the films were taken at the end of the procedure. There was a similar type pattern with the major blood vessel into the foot being the peroneal artery with reconstitution of the dorsalis pedis on the left side as the major vessel in the foot. Subsequent to the performance of diagnostic arteriogram, a stiff-angled guidewire was advanced over t he aortic bifurcation and a 7-Yakut sheath positioned in the midportion of the popliteal artery and heparin was given after the lesion was crossed with an 0.018 wire, and then subsequently we exchanged this for 0.014 wire, initially ballooned this with a 3 mm balloon. The results were suboptimal with marked dissection in the region. Because of this, we then deployed a 3.0 x 33 mm drug-eluting stent in this region with excellent cosmetic results. There is then brisk flow through the peroneal arter y down to the foot. A Perclose device was then deployed on the left side. Prior to this, we took ad ditional magnified views of the left foot. OPERATIONS CARRIED OUT: Aortofemoral angiogram via left groin with selective catheterization of righ t femoral artery, balloon angioplasty of the peroneal artery and balloon angioplasty and placement of drug-eluting stent in the proximal portion of the tibioperoneal trunk. Mitchel Lugo Jr., MD cc:Keron Ramírez MD 56 TT: 09/04/2016 14:43:45 Confirmation # [id number] Dictation # [id number] mn
--- NOTE | 2016-09-04 14:46 | CP.PCM.PN ---
<Carmen Pisano - Last Filed: 09/04/16 14:47> Subjective - Date & Time of Evaluation Date of Evaluation: 09/04/16 Time of Evaluation: 10:00 - Subjective Subjective: This is a late-entry note. Patient seen and examined this morning prior to surgery. Patient is scheduled for the OR today with Dr Lugo for balloon angioplasty of peroneal artery and aortofemoral angiogram. Patient stated that he felt well this morning and had little pain in his right ankle and foot. He was AAOx3 and comfortable. Denied chest pain, shortness of breath, fever, chills, nausea, vomiting, diarrhea, abdominal pain, and palpitations. Objective - Vital Signs/Intake and Output Vital Signs (last 24 hours): Temp Pulse Resp BP Pulse Ox 98.0 F 62 20 134/56 L 96 09/04/16 07:53 09/04/16 09:00 09/04/16 07:53 09/04/16 07:53 09/04/16 07:53 - Medications Medications: Current Medications Ferric Sodium Gluconate Complex (Ferrlecit) 125 mg IVPB DAILY [facility] Stop: 09/06/16 10:01 Last Admin: 09/04/16 09:57 Dose: 125 mg Ciprofloxacin (Cipro 400mg/200ml Dsw) 200 mls @ 133 mls/hr IVPB Q12H [facility] Last Admin: 09/04/16 09:58 Dose: 133 mls/hr Dextrose/Sodium Chloride (Dextrose 5%/0.45% Ns 1000 Ml) 1,000 mls @ 75 mls/hr IV .[id number] [facility] Last Admin: 09/04/16 14:20 Dose: Not Given Insulin Glargine (Lantus) 10 unit SC HS [facility] Last Admin: 09/03/16 22:05 Dose: Not Given Insulin Human Regular (Novolin R) 0 unit SC ACHS [facility] PRN Reason: Protocol Last Admin: 09/04/16 11:30 Dose: Not Given Isosorbide Mononitrate (Imdur) 30 mg PO DAILY [facility] Last Admin: 09/04/16 09:52 Dose: Not Given Metoprolol Succinate (Toprol Xl) 12.5 mg PO Q24H [facility] Last Admin: 09/03/16 17:37 Dose: 12.5 mg Pantoprazole Sodium (Protonix Ec Tab) 40 mg PO ACB [facility] Last Admin: 09/04/16 08:00 Dose: Not Given Ranolazine (Ranexa) 500 mg PO BID [facility] Last Admin: 09/04/16 09:53 Dose: Not Given Rosuvastatin Calcium (Crestor) 20 mg PO HS [facility] Last Admin: 09/03/16 22:05 Dose: 20 mg - Labs Labs: 09/04/16 06:30 09/04/16 06:48 PT 13.2 SECONDS (9.7-12.2) H 09/04/16 06:48 INR 1.2 09/04/16 06:48 APTT 34 SECONDS (21-34) 09/04/16 06:48 - Constitutional Appears: Non-toxic, No Acute Distress - Head Exam Head Exam: ATRAUMATIC, NORMOCEPHALIC - Eye Exam Eye Exam: EOMI, Normal appearance - ENT Exam ENT Exam: Mucous Membranes Moist - Respiratory Exam Respiratory Exam: Clear to Ausculation Bilateral, NORMAL BREATHING PATTERN. 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 Bishop - help appreciated Surgery consulted- Dr. Lugo - help appreciated. s/p OR today- aortofemoral angiogram via lefrt groin, selective catherization of right side, balloon angioplasty of peroneal artery. Blood cultures negative after 5 days 08/28/16 Wound culture - positive for proteus mirabilis, pseudomonas aeruginosa and corynebacterium species 08/30/16 MRI ankle - positive for osteomyelsitis. prominent ulceration seen within medial soft tissues at the level of the left ankle. Marked signal abnormality seen within medial malleolus and distal tibia at the ankle joint space with heterogeneously increased STIR signal with patchy decreased T1 signal concerning for an acute osteomyelitis. Superimposed osteonecrosis and or avascular necrosis cannot entirely be excluded. Some patchy reactive signal with increased STIR and mild patchy decreased T1 signal noted within the anteromedial talus which may represent some developing acute osteomyelsitis. Mild tenosynovitis of the anterior tibial tensionsheath and posterior tendon sheath. Cipro 400mg IVPB Q12H started 08/31/16 DM RISS Lantus 10U SC HS HTN Imdur 30mg PO daily Toprol XL 12.5mg PO daily Hyperlipidemia Crestor 20mg PO HS Anemia Ferrlecit 125mg IVPB daily Prophylaxis Protonix 40mg PO ACB SCDs contraindicated secondary to infection All management per Dr. Tim Ramírez <Santiago Ramírez S - Last Filed: 09/04/16 19:37> Objective - Vital Signs/Intake and Output Vital Signs (last 24 hours): Temp Pulse Resp BP Pulse Ox 97.4 F L 54 L 20 111/54 L 96 09/04/16 15:01 09/04/16 16:00 09/04/16 15:01 09/04/16 15:01 09/04/16 15:01 - Medications Medications: Current Medications Ferric Sodium Gluconate Complex (Ferrlecit) 125 mg IVPB DAILY [facility] Stop: 09/06/16 10:01 Last Admin: 09/04/16 09:57 Dose: 125 mg Ciprofloxacin (Cipro 400mg/200ml Dsw) 200 mls @ 133 mls/hr IVPB Q12H [facility] Last Admin: 09/04/16 09:58 Dose: 133 mls/hr Dextrose/Sodium Chloride (Dextrose 5%/0.45% Ns 1000 Ml) 1,000 mls @ 75 mls/hr IV .[id number] [facility] Last Admin: 09/04/16 17:53 Dose: 75 mls/hr Insulin Glargine (Lantus) 10 unit SC HS [facility] Last Admin: 09/03/16 22:05 Dose: Not Given Insulin Human Regular (Novolin R) 0 unit SC [facility] PRN Reason: Protocol Last Admin: 09/04/16 17:57 Dose: 2 unit Isosorbide Mononitrate (Imdur) 30 mg PO DAILY [facility] Last Admin: 09/04/16 09:52 Dose: Not Given Metoprolol Succinate (Toprol Xl) 12.5 mg PO Q24H [facility] Last Admin: 09/04/16 17:10 Dose: Not Given Pantoprazole Sodium (Protonix Ec Tab) 40 mg PO ACB [facility] Last Admin: 09/04/16 08:00 Dose: Not Given Ranolazine (Ranexa) 500 mg PO BID [facility] Last Admin: 09/04/16 17:57 Dose: 500 mg Rosuvastatin Calcium (Crestor) 20 mg PO HS [facility] Last Admin: 09/03/16 22:05 Dose: 20 mg - Labs Labs: 09/04/16 06:30 09/04/16 06:48 PT 13.2 SECONDS (9.7-12.2) H 09/04/16 06:48 INR 1.2 09/04/16 06:48 APTT 34 SECONDS (21-34) 09/04/16 06:48 Attending/Attestation - Attestation I have personally seen and examined this patient.: Yes I have fully participated in the care of the patient.: Yes I have reviewed all pertinent clinical information, including history, physical exam and plan: Yes
--- NOTE | 2016-09-04 15:19 | CP.PCM.PN ---
Subjective - Date & Time of Evaluation Date of Evaluation: 09/04/16 Time of Evaluation: 11:40 - Subjective Subjective: clinically same Objective - Vital Signs/Intake and Output Vital Signs (last 24 hours): Temp Pulse Resp BP Pulse Ox 98.0 F 62 20 134/56 L 96 09/04/16 07:53 09/04/16 09:00 09/04/16 07:53 09/04/16 07:53 09/04/16 07:53 - Medications Medications: Current Medications Ferric Sodium Gluconate Complex (Ferrlecit) 125 mg IVPB DAILY [facility] Stop: 09/06/16 10:01 Last Admin: 09/04/16 09:57 Dose: 125 mg Ciprofloxacin (Cipro 400mg/200ml Dsw) 200 mls @ 133 mls/hr IVPB Q12H [facility] Last Admin: 09/04/16 09:58 Dose: 133 mls/hr Dextrose/Sodium Chloride (Dextrose 5%/0.45% Ns 1000 Ml) 1,000 mls @ 75 mls/hr IV .[id number] [facility] Last Admin: 09/04/16 14:20 Dose: Not Given Insulin Glargine (Lantus) 10 unit SC [facility] Last Admin: 09/03/16 22:05 Dose: Not Given Insulin Human Regular (Novolin R) 0 unit SC [facility] PRN Reason: Protocol Last Admin: 09/04/16 11:30 Dose: Not Given Isosorbide Mononitrate (Imdur) 30 mg PO DAILY [facility] Last Admin: 09/04/16 09:52 Dose: Not Given Metoprolol Succinate (Toprol Xl) 12.5 mg PO Q24H [facility] Last Admin: 09/03/16 17:37 Dose: 12.5 mg Pantoprazole Sodium (Protonix Ec Tab) 40 mg PO ACB [facility] Last Admin: 09/04/16 08:00 Dose: Not Given Ranolazine (Ranexa) 500 mg PO BID [facility] Last Admin: 09/04/16 09:53 Dose: Not Given Rosuvastatin Calcium (Crestor) 20 mg PO HS [facility] Last Admin: 09/03/16 22:05 Dose: 20 mg - Labs Labs: 09/04/16 06:30 09/04/16 06:48 PT 13.2 SECONDS (9.7-12.2) H 09/04/16 06:48 INR 1.2 09/04/16 06:48 APTT 34 SECONDS (21-34) 09/04/16 06:48 - Constitutional Appears: Well - Head Exam Head Exam: ATRAUMATIC, NORMAL INSPECTION, NORMOCEPHALIC - Eye Exam Eye Exam: EOMI, Normal appearance, PERRL Pupil Exam: NORMAL ACCOMODATION, PERRL - ENT Exam ENT Exam: Mucous Membranes Moist, Normal Exam - Neck Exam Neck Exam: Full ROM, Normal Inspection. absent: Lymphadenopathy - Respiratory Exam Respiratory Exam: Decreased Breath Sounds - Cardiovascular Exam Cardiovascular Exam: +S1, +S2 - GI/Abdominal Exam GI & Abdominal Exam: Soft, Diminished Bowel Sounds - Rectal Exam Rectal Exam: Deferred Assessment and Plan - Assessment and Plan (Free Text) Plan: DR daisy tavera +ve for stenosis savana. H/H monitor savana, wound care conit. Iv antibiotics f/u labs
[2016-09-04] MEDS: Metoprolol Succinate 12.5 mg XL PO SCH (17:10)
[2016-09-04] MEDS: (Lantus) Insulin Glargine, Recombinant SC SCH (22:30)
[2016-09-05] MEDS: Dextrose 5%/0.45% NS 1,000 ML IV SCH ×2 (03:35→16:55)
[2016-09-05 07:33] LABS: BASO % 0.6 % (0.0-2.0); EOS # 0.1 K/uL (0.0-0.7); EOS % 4.1 % (0.0-4.0); HEMATOCRIT 29.2 % (35.0-51.0); LYMPH # 1.1 K/uL (1.0-4.3); LYMPH % 48.4 % (20.0-40.0); MEAN CELL VOLUME 76.6 fL (80.0-94.0); MEAN CORPUSCULAR HEMOGLOBIN 25.3 pg (27.0-31.0); MEAN PLATELET VOLUME 8.8 fL (7.2-11.7); MONO # 0.6 K/uL (0.0-0.8); MONO % 28.5 % (0.0-10.0); NRBC % 0.5 % (0.0-2.0); PLATELET COUNT 117 K/uL (130-400); RED CELL DISTRIBUTION WIDTH 20.5 % (11.5-14.5); WHITE BLOOD COUNT 2.2 K/uL (4.8-10.8)
[2016-09-05 07:48] LABS: CHLORIDE 103 mmol/L (98-107); POTASSIUM 3.8 mmol/L (3.6-5.2); SODIUM 136 mmol/L (132-148)
[2016-09-05 07:50] LABS: ALB/GLOB RATIO 0.8 (1.0-2.1); ALKALINE PHOSPHATASE 89 U/L (38-126); AST/SGOT 22 U/L (17-59); BILIRUBIN,TOTAL 0.2 mg/dL (0.2-1.3); BLOOD UREA NITROGEN 20 mg/dL (9-20); CARBON DIOXIDE 24 mmol/L (22-30); GFR AFRICAN-AMERICAN > 60; GLUCOSE,RANDOM 167 mg/dL (75-110)
[2016-09-05 07:51] LABS: ALT/SGPT 22 U/L (21-72); CALCIUM 8.3 mg/dl (8.6-10.4); PHOSPHOROUS 2.9 mg/dL (2.5-4.5)
[2016-09-05] MEDS: Pantoprazole 40 mg EC Tab PO SCH (08:00)
[2016-09-05] MEDS: (Novolin R) Insulin Human Regular 100 units/ml vial SC SCH ×4 (08:10→22:00)
--- NOTE | 2016-09-05 08:24 | CP.PCM.PN ---
Subjective - Date & Time of Evaluation Date of Evaluation: 09/05/16 Time of Evaluation: 08:21 - Subjective Subjective: PGY1 Progress Note for Dr. Lugo: Patient seen and examined. Patient states he has no pain in leg s/p angio. Patient states he is eating well and denies nausea or vomiting. Objective - Vital Signs/Intake and Output Vital Signs (last 24 hours): Temp Pulse Resp BP Pulse Ox 98.1 F 66 20 147/73 99 09/04/16 23:40 09/05/16 00:15 09/04/16 23:40 09/04/16 23:40 09/04/16 23:40 Intake and Output: 09/05/16 09/05/16 06:59 18:59 Intake Total 750 Output Total 600 Balance 150 - Medications Medications: Current Medications Ferric Sodium Gluconate Complex (Ferrlecit) 125 mg IVPB DAILY [facility] Stop: 09/06/16 10:01 Last Admin: 09/04/16 09:57 Dose: 125 mg Ciprofloxacin (Cipro 400mg/200ml Dsw) 200 mls @ 133 mls/hr IVPB Q12H [facility] Last Admin: 09/04/16 09:58 Dose: 133 mls/hr Dextrose/Sodium Chloride (Dextrose 5%/0.45% Ns 1000 Ml) 1,000 mls @ 75 mls/hr IV .[id number] [facility] Last Admin: 09/05/16 03:35 Dose: Not Given Insulin Glargine (Lantus) 10 unit SC HS [facility] Last Admin: 09/04/16 22:30 Dose: 10 units Insulin Human Regular (Novolin R) 0 unit SC [facility] PRN Reason: Protocol Last Admin: 09/04/16 22:00 Dose: Not Given Isosorbide Mononitrate (Imdur) 30 mg PO DAILY [facility] Last Admin: 09/04/16 09:52 Dose: Not Given Metoprolol Succinate (Toprol Xl) 12.5 mg PO Q24H [facility] Last Admin: 09/04/16 17:10 Dose: Not Given Pantoprazole Sodium (Protonix Ec Tab) 40 mg PO ACB [facility] Last Admin: 09/04/16 08:00 Dose: Not Given Ranolazine (Ranexa) 500 mg PO BID [facility] Last Admin: 09/04/16 17:57 Dose: 500 mg Rosuvastatin Calcium (Crestor) 20 mg PO HS [facility] Last Admin: 09/04/16 22:30 Dose: 20 mg - Labs Labs: 09/05/16 07:16 09/05/16 07:16 PT 13.2 SECONDS (9.7-12.2) H 09/04/16 06:48 INR 1.2 09/04/16 06:48 APTT 34 SECONDS (21-34) 09/04/16 06:48 - Constitutional Appears: Non-toxic, No Acute Distress - Head Exam Head Exam: ATRAUMATIC, NORMOCEPHALIC - Eye Exam Eye Exam: EOMI - Extremities Exam Additional comments: left groin catheterization site clean and dry, soft, no hematoma positive DP pulses by doppler bilaterally legs warm to touch bilaterally - Neurological Exam Neurological Exam: Alert, Awake - Psychiatric Exam Psychiatric exam: Normal Affect - Skin Skin Exam: Dry, Pallor, Warm Assessment and Plan - Assessment and Plan (Free Text) Assessment: 71M with purulent non-healing ulcer of right medial malleolus, s/p aortofemoral angiogram via left groin, selective catherization of right femoral artery, balloon angioplasty of peroneal artery with TOVA in proximal tibioperoneal trunk - POD #1 - DP pulses by doppler bilaterally - left groin catheterization site soft, no bleeding, no hematoma - H&H stable at 9.6/ 29.2 - continue antibiotics per ID for osteomyelitis - further recs per Dr. Lugo
[2016-09-05] MEDS: Ciprofloxacin 400mg/200ml D5W 200 ML IVPB SCH ×2 (09:00→23:39)
[2016-09-05 09:33] LABS: BASOPHIL 2 % (0-2); NEUTROPHIL 18 % (50-75); TOTAL CELLS COUNTED 50
[2016-09-05] MEDS: Ferric Sodium Gluconat Complex 62.5 mg/5 ml Vial IVPB SCH (10:03)
[2016-09-05] MEDS: Ranolazine 500 mg Extended Release Tablets PO SCH ×2 (10:05→18:22)
--- NOTE | 2016-09-05 11:06 | CP.PCM.PN ---
Subjective - Date & Time of Evaluation Date of Evaluation: 09/05/16 Time of Evaluation: 09:30 - Subjective Subjective: Medicine Progress Note Patient seen and examined. Patient states that he did not sleep well last night because he was uncomfortable. He states that he has mild pain in his right foot and ankle. Denies fever, chills, nausea, vomiting, chest pain and SOB. Objective - Vital Signs/Intake and Output Vital Signs (last 24 hours): Temp Pulse Resp BP Pulse Ox 98.1 F 65 20 132/73 99 09/05/16 08:44 09/05/16 09:16 09/05/16 08:44 09/05/16 08:44 09/05/16 08:44 Intake and Output: 09/05/16 09/05/16 06:59 18:59 Intake Total 750 Output Total 600 Balance 150 - Medications Medications: Current Medications Ferric Sodium Gluconate Complex (Ferrlecit) 125 mg IVPB DAILY [facility] Stop: 09/06/16 10:01 Last Admin: 09/05/16 10:03 Dose: 125 mg Ciprofloxacin (Cipro 400mg/200ml Dsw) 200 mls @ 133 mls/hr IVPB Q12H [facility] Last Admin: 09/05/16 09:00 Dose: 133 mls/hr Dextrose/Sodium Chloride (Dextrose 5%/0.45% Ns 1000 Ml) 1,000 mls @ 75 mls/hr IV .[id number] [facility] Last Admin: 09/05/16 03:35 Dose: Not Given Insulin Glargine (Lantus) 10 unit SC HS [facility] Last Admin: 09/04/16 22:30 Dose: 10 units Insulin Human Regular (Novolin R) 0 unit SC ACHS [facility] PRN Reason: Protocol Last Admin: 09/05/16 08:10 Dose: 2 unit Isosorbide Mononitrate (Imdur) 30 mg PO DAILY [facility] Last Admin: 09/05/16 10:05 Dose: 30 mg Metoprolol Succinate (Toprol Xl) 12.5 mg PO Q24H [facility] Last Admin: 09/04/16 17:10 Dose: Not Given Pantoprazole Sodium (Protonix Ec Tab) 40 mg PO ACB [facility] Last Admin: 09/05/16 08:00 Dose: 40 mg Ranolazine (Ranexa) 500 mg PO BID [facility] Last Admin: 09/05/16 10:05 Dose: 500 mg Rosuvastatin Calcium (Crestor) 20 mg PO HS [facility] Last Admin: 09/04/16 22:30 Dose: 20 mg - Labs Labs: 09/05/16 07:16 09/05/16 07:16 PT 13.2 SECONDS (9.7-12.2) H 09/04/16 06:48 INR 1.2 09/04/16 06:48 APTT 34 SECONDS (21-34) 09/04/16 06:48 - Additional Findings Additional findings: - Constitutional Appears: Non-toxic, No Acute Distress - Head Exam Head Exam: ATRAUMATIC, NORMOCEPHALIC - Eye Exam Eye Exam: EOMI, Normal appearance - ENT Exam ENT Exam: Mucous Membranes Moist - Respiratory Exam Respiratory Exam: Clear to Ausculation Bilateral, NORMAL BREATHING PATTERN. 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 Bishop - help appreciated Surgery consulted- Dr. Lugo - help appreciated. POD #1 s/p OR yesterday- aortofemoral angiogram via lefrt groin, selective catherization of right side, balloon angioplasty of peroneal artery. Blood cultures negative after 5 days 08/28/16 Wound culture - positive for proteus mirabilis, pseudomonas aeruginosa and corynebacterium species 08/30/16 MRI ankle - positive for osteomyelsitis. prominent ulceration seen within medial soft tissues at the level of the left ankle. Marked signal abnormality seen within medial malleolus and distal tibia at the ankle joint space with heterogeneously increased STIR signal with patchy decreased T1 signal concerning for an acute osteomyelitis. Superimposed osteonecrosis and or avascular necrosis cannot entirely be excluded. Some patchy reactive signal with increased STIR and mild patchy decreased T1 signal noted within the anteromedial talus which may represent some developing acute osteomyelsitis. Mild tenosynovitis of the anterior tibial tensionsheath and posterior tendon sheath. Cipro 400mg IVPB Q12H started 08/31/16 DM RISS Lantus 10U SC HS HTN Imdur 30mg PO daily Toprol XL 12.5mg PO daily Hyperlipidemia Crestor 20mg PO HS Anemia Ferrlecit 125mg IVPB daily Prophylaxis Protonix 40mg PO discontinued due to decreased platelets, started pepcid 20mg PO BID SCDs contraindicated secondary to infection All management per Dr. Tim Ramírez
--- NOTE | 2016-09-05 13:59 | RAD ---
HISTORY: verify right PICC COMPARISON: Comparison chest 09/29/2014. FINDINGS: LUNGS: In situ to right-sided PICC with tip in the SVC PLEURA: No significant pleural effusion identified, no pneumothorax apparent. CARDIOVASCULAR: Normal. OSSEOUS STRUCTURES: Degenerative changes left shoulder girdle and mild multilevel degenerative spondylosis of the thoracic spine VISUALIZED UPPER ABDOMEN: Normal. OTHER FINDINGS: None. IMPRESSION: In situ right-sided PICC line as above
--- NOTE | 2016-09-05 15:29 | RAD ---
HISTORY: verify PICC tip placement COMPARISON: 09/05/2016 TECHNIQUE: Chest PA and lateral FINDINGS: The right PICC line terminates in the SVC. LUNGS: The lungs are well inflated and clear. PLEURA: No significant pleural effusion identified. No pneumothorax apparent. CARDIOVASCULAR: Normal. OSSEOUS STRUCTURES: No significant abnormalities. VISUALIZED UPPER ABDOMEN: Normal. OTHER FINDINGS: None. IMPRESSION: No active pulmonary disease.
--- NOTE | 2016-09-05 15:52 | CP.PCM.PN ---
Subjective - Date & Time of Evaluation Date of Evaluation: 09/05/16 Time of Evaluation: 11:40 - Subjective Subjective: clinically same Objective - Vital Signs/Intake and Output Vital Signs (last 24 hours): Temp Pulse Resp BP Pulse Ox 98.1 F 65 20 132/73 99 09/05/16 08:44 09/05/16 09:16 09/05/16 08:44 09/05/16 08:44 09/05/16 08:44 Intake and Output: 09/05/16 09/05/16 06:59 18:59 Intake Total 750 Output Total 600 Balance 150 - Medications Medications: Current Medications Famotidine (Pepcid) 20 mg PO BID [facility] Ferric Sodium Gluconate Complex (Ferrlecit) 125 mg IVPB DAILY [facility] Stop: 09/06/16 10:01 Last Admin: 09/05/16 10:03 Dose: 125 mg Ciprofloxacin (Cipro 400mg/200ml Dsw) 200 mls @ 133 mls/hr IVPB Q12H [facility] Last Admin: 09/05/16 09:00 Dose: 133 mls/hr Dextrose/Sodium Chloride (Dextrose 5%/0.45% Ns 1000 Ml) 1,000 mls @ 75 mls/hr IV .[id number] [facility] Last Admin: 09/05/16 03:35 Dose: Not Given Insulin Glargine (Lantus) [address] [facility] Last Admin: 09/04/16 22:30 Dose: 10 units Insulin Human Regular (Novolin R) 0 unit SC [facility] PRN Reason: Protocol Last Admin: 09/05/16 11:18 Dose: 10 unit Isosorbide Mononitrate (Imdur) 30 mg PO DAILY [facility] Last Admin: 09/05/16 10:05 Dose: 30 mg Metoprolol Succinate (Toprol Xl) 12.5 mg PO Q24H [facility] Last Admin: 09/04/16 17:10 Dose: Not Given Ranolazine (Ranexa) 500 mg PO BID [facility] Last Admin: 09/05/16 10:05 Dose: 500 mg Rosuvastatin Calcium (Crestor) 20 mg PO HS [facility] Last Admin: 09/04/16 22:30 Dose: 20 mg - Labs Labs: 09/05/16 07:16 09/05/16 07:16 PT 13.2 SECONDS (9.7-12.2) H 09/04/16 06:48 INR 1.2 09/04/16 06:48 APTT 34 SECONDS (21-34) 09/04/16 06:48 - Constitutional Appears: Well - Head Exam Head Exam: ATRAUMATIC, NORMAL INSPECTION, NORMOCEPHALIC - Eye Exam Eye Exam: EOMI, Normal appearance, PERRL Pupil Exam: NORMAL ACCOMODATION, PERRL - ENT Exam ENT Exam: Mucous Membranes Moist, Normal Exam - Neck Exam Neck Exam: Full ROM, Normal Inspection. absent: Lymphadenopathy - Respiratory Exam Respiratory Exam: Decreased Breath Sounds - Cardiovascular Exam Cardiovascular Exam: REGULAR RHYTHM, +S1, +S2 - GI/Abdominal Exam GI & Abdominal Exam: Soft, Diminished Bowel Sounds - Rectal Exam Rectal Exam: Deferred Assessment and Plan - Assessment and Plan (Free Text) Plan: DR daisy Lugo Hb stable savana. H/H monitor savana. wound care conit. Iv antibiotics
[2016-09-05] MEDS: Metoprolol Succinate 12.5 mg XL PO SCH (18:26)
--- NOTE | 2016-09-05 18:34 | CP.PCM.PN ---
Subjective - Date & Time of Evaluation Date of Evaluation: 09/05/16 Time of Evaluation: 07:00 - Subjective Subjective: s/p angio/stent leg feels better has ulcer on malleolus cont rx as per OM consider BX/ Cultuure bone Objective - Vital Signs/Intake and Output Vital Signs (last 24 hours): Temp Pulse Resp BP Pulse Ox 98.1 F 65 20 132/73 99 09/05/16 08:44 09/05/16 09:16 09/05/16 08:44 09/05/16 08:44 09/05/16 08:44 Intake and Output: 09/05/16 09/05/16 06:59 18:59 Intake Total 750 Output Total 600 Balance 150 - Medications Medications: Current Medications Famotidine (Pepcid) 20 mg PO BID [facility] Last Admin: 09/05/16 18:22 Dose: 20 mg Ferric Sodium Gluconate Complex (Ferrlecit) 125 mg IVPB DAILY [facility] Stop: 09/06/16 10:01 Last Admin: 09/05/16 10:03 Dose: 125 mg Ciprofloxacin (Cipro 400mg/200ml Dsw) 200 mls @ 133 mls/hr IVPB Q12H [facility] Last Admin: 09/05/16 09:00 Dose: 133 mls/hr Dextrose/Sodium Chloride (Dextrose 5%/0.45% Ns 1000 Ml) 1,000 mls @ 75 mls/hr IV .[id number] [facility] Last Admin: 09/05/16 03:35 Dose: Not Given Insulin Glargine (Lantus) 10 unit SC [facility] Last Admin: 09/04/16 22:30 Dose: 10 units Insulin Human Regular (Novolin R) 0 unit SC [facility] PRN Reason: Protocol Last Admin: 09/05/16 18:28 Dose: 1 unit Isosorbide Mononitrate (Imdur) 30 mg PO DAILY [facility] Last Admin: 09/05/16 10:05 Dose: 30 mg Metoprolol Succinate (Toprol Xl) 12.5 mg PO Q24H [facility] Last Admin: 09/05/16 18:26 Dose: 12.5 mg Ranolazine (Ranexa) 500 mg PO BID [facility] Last Admin: 09/05/16 18:22 Dose: 500 mg Rosuvastatin Calcium (Crestor) 20 mg PO [facility] Last Admin: 09/04/16 22:30 Dose: 20 mg - Labs Labs: 09/05/16 07:16 09/05/16 07:16 PT 13.2 SECONDS (9.7-12.2) H 09/04/16 06:48 INR 1.2 09/04/16 06:48 APTT 34 SECONDS (21-34) 09/04/16 06:48 - Constitutional Appears: Non-toxic, Cachectic, Chronically Ill - Head Exam Head Exam: NORMOCEPHALIC - Eye Exam Eye Exam: absent: Nystagmus, Scleral icterus - ENT Exam ENT Exam: Mucous Membranes Dry, Normal External Ear Exam - Neck Exam Neck Exam: absent: Lymphadenopathy - Respiratory Exam Respiratory Exam: Decreased Breath Sounds - Cardiovascular Exam Cardiovascular Exam: REGULAR RHYTHM, +S1, +S2 - GI/Abdominal Exam GI & Abdominal Exam: Distended, Soft. absent: Tenderness - Rectal Exam Rectal Exam: Deferred - Exam Exam: NORMAL INSPECTION - Extremities Exam Extremities Exam: absent: Pedal Edema - Back Exam Back Exam: absent: CVA tenderness (L), CVA tenderness (R) - Neurological Exam Neurological Exam: Alert, Awake, Oriented x3 - Psychiatric Exam Psychiatric exam: Normal Mood - Skin Skin Exam: Dry, Intact Assessment and Plan - Assessment and Plan (Free Text) Plan: rx as OM consider bx/Cx
[2016-09-05] MEDS: (Lantus) Insulin Glargine, Recombinant SC SCH (23:41)
[2016-09-06 06:18] LABS: BASO % 0.7 % (0.0-2.0); EOS # 0.1 K/uL (0.0-0.7); HEMATOCRIT 26.6 % (35.0-51.0); LYMPH % 45.4 % (20.0-40.0); MEAN CELL VOLUME 76.4 fL (80.0-94.0); MEAN CORPUSCULAR HEMOGLOBIN 25.7 pg (27.0-31.0); MEAN CORPUSCULAR HGB CONC 33.6 g/dL (33.0-37.0); MEAN PLATELET VOLUME 9.1 fL (7.2-11.7); MONO # 0.8 K/uL (0.0-0.8); MONO % 34.7 % (0.0-10.0); NRBC % 0.1 % (0.0-2.0); PLATELET COUNT 106 K/uL (130-400); RED CELL DISTRIBUTION WIDTH 20.8 % (11.5-14.5); WHITE BLOOD COUNT 2.2 K/uL (4.8-10.8)
[2016-09-06 07:30] LABS: CHLORIDE 106 mmol/L (98-107)
[2016-09-06 07:31] LABS: POTASSIUM 3.8 mmol/L (3.6-5.2); SODIUM 139 mmol/L (132-148)
[2016-09-06 07:33] LABS: ALB/GLOB RATIO 0.8 (1.0-2.1); AST/SGOT 19 U/L (17-59); BILIRUBIN,TOTAL 0.5 mg/dL (0.2-1.3); BLOOD UREA NITROGEN 14 mg/dL (9-20); CARBON DIOXIDE 22 mmol/L (22-30); GFR AFRICAN-AMERICAN > 60; TOTAL PROTEIN 6.9 g/dL (6.3-8.3)
[2016-09-06 07:34] LABS: ALKALINE PHOSPHATASE 87 U/L (38-126); ALT/SGPT 15 U/L (21-72); CALCIUM 8.4 mg/dl (8.6-10.4); GLUCOSE,RANDOM 168 mg/dL (75-110); PHOSPHOROUS 2.5 mg/dL (2.5-4.5)
[2016-09-06] MEDS: Ciprofloxacin 400mg/200ml D5W 200 ML IVPB SCH ×2 (08:14→20:35)
[2016-09-06] MEDS: (Novolin R) Insulin Human Regular 100 units/ml vial SC SCH ×4 (08:27→22:26)
[2016-09-06] MEDS: Ranolazine 500 mg Extended Release Tablets PO SCH ×2 (09:36→17:24)
[2016-09-06] MEDS: Ferric Sodium Gluconat Complex 62.5 mg/5 ml Vial IVPB SCH (09:36)
--- NOTE | 2016-09-06 10:39 | CP.PCM.PN ---
Subjective - Date & Time of Evaluation Date of Evaluation: 09/06/16 Time of Evaluation: 09:15 - Subjective Subjective: PGY2 Medicine Note - Dr. Tim Ramírez's service: Patient seen and examined at bedside this AM. Patient lying in bed comfortably. Patient reports mild pain in his right foot. Patient denies fever , chills, chest pain, SOB, cough, dysuria, urinary frequency, vomiting, diarrhea. Objective - Vital Signs/Intake and Output Vital Signs (last 24 hours): Temp Pulse Resp BP Pulse Ox 97.3 F L 62 17 148/61 98 09/06/16 07:55 09/06/16 07:55 09/06/16 07:55 09/06/16 07:55 09/06/16 07:55 Intake and Output: 09/06/16 09/06/16 06:59 18:59 Intake Total 600 Output Total 700 Balance -100 - Medications Medications: Current Medications Famotidine (Pepcid) 20 mg PO BID [facility] Last Admin: 09/06/16 09:36 Dose: 20 mg Folic Acid (Folic Acid) 1 mg PO DAILY [facility] Last Admin: 09/06/16 09:36 Dose: 1 mg Ciprofloxacin (Cipro 400mg/200ml Dsw) 200 mls @ 133 mls/hr IVPB Q12H [facility] Last Admin: 09/06/16 08:14 Dose: 133 mls/hr Dextrose/Sodium Chloride (Dextrose 5%/0.45% Ns 1000 Ml) 1,000 mls @ 75 mls/hr IV .[id number] [facility] Last Admin: 09/05/16 16:55 Dose: Not Given Insulin Glargine (Lantus) 10 unit SC HS [facility] Last Admin: 09/05/16 23:41 Dose: 10 units Insulin Human Regular (Novolin R) 0 unit SC ACHS [facility] PRN Reason: Protocol Last Admin: 09/06/16 08:27 Dose: 2 unit Isosorbide Mononitrate (Imdur) 30 mg PO DAILY [facility] Last Admin: 09/06/16 09:36 Dose: 30 mg Metoprolol Succinate (Toprol Xl) 12.5 mg PO Q24H [facility] Last Admin: 09/05/16 18:26 Dose: 12.5 mg Ranolazine (Ranexa) 500 mg PO BID [facility] Last Admin: 09/06/16 09:36 Dose: 500 mg Rosuvastatin Calcium (Crestor) 20 mg PO HS [facility] Last Admin: 09/05/16 23:39 Dose: 20 mg Thiamine HCl (Vitamin B1 Tab) 100 mg PO DAILY [facility] Last Admin: 09/06/16 09:36 Dose: 100 mg - Labs Labs: 09/06/16 06:08 09/06/16 06:08 PT 13.2 SECONDS (9.7-12.2) H 09/04/16 06:48 INR 1.2 09/04/16 06:48 APTT 34 SECONDS (21-34) 09/04/16 06:48 - Constitutional Appears: Non-toxic, No Acute Distress - Head Exam Head Exam: NORMAL INSPECTION - Eye Exam Eye Exam: EOMI - ENT Exam ENT Exam: Mucous Membranes Moist - Respiratory Exam Respiratory Exam: Clear to Ausculation Bilateral, NORMAL BREATHING PATTERN. absent: Rales, Rhonchi, Wheezes - Cardiovascular Exam Cardiovascular Exam: REGULAR RHYTHM, +S1, +S2. absent: Gallop, Rubs, Murmur - GI/Abdominal Exam GI & Abdominal Exam: Soft, Normal Bowel Sounds. 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 Bishop - help appreciated Surgery consulted- Dr. Lugo - help appreciated. POD #1 s/p OR yesterday- aortofemoral angiogram via lefrt groin, selective catherization of right side, balloon angioplasty of peroneal artery. Blood cultures negative after 5 days 08/28/16 Wound culture - positive for proteus mirabilis, pseudomonas aeruginosa and corynebacterium species 08/30/16 MRI ankle - positive for osteomyelsitis. prominent ulceration seen within medial soft tissues at the level of the left ankle. Marked signal abnormality seen within medial malleolus and distal tibia at the ankle joint space with heterogeneously increased STIR signal with patchy decreased T1 signal concerning for an acute osteomyelitis. Superimposed osteonecrosis and or avascular necrosis cannot entirely be excluded. Some patchy reactive signal with increased STIR and mild patchy decreased T1 signal noted within the anteromedial talus which may represent some developing acute osteomyelsitis. Mild tenosynovitis of the anterior tibial tensionsheath and posterior tendon sheath. Cipro 400mg IVPB Q12H started 08/31/16 Pancytopenia Heme/Onc consult - Dr. Knutson - f/u recommendations Neutropenia Neutrophils 0.3 Per nursing, the hospital no longer does anything for neutropenic precautions bedsides washing hands Placed call to RN in charge of ID at the hospital, awaiting call back DM RISS Lantus 10U SC HS HTN Imdur 30mg PO daily Toprol XL 12.5mg PO daily Hyperlipidemia Crestor 20mg PO HS Anemia Ferrlecit 125mg IVPB daily Prophylaxis Protonix 40mg PO discontinued due to decreased platelets, started pepcid 20mg PO BID SCDs contraindicated secondary to infection All management per Dr. Tim Ramírez
[2016-09-06 10:41] LABS: EOSINOPHIL 6 % (0-4); NEUTROPHIL 16 % (50-75); REACTIVE LYMPHOCYTES 2 % (0-0); TOTAL CELLS COUNTED 100
--- NOTE | 2016-09-06 11:23 | CP.PCM.CON ---
History of Present Illness - History of Present Illness History of Present Illness: 71 y/o male seen and evaluated with Dr. Ramirez for right tibial ulceration with underlying OM. Patient states that he has been admitted for a while now where he has been treated and his blood flow has been improved. At this time patient states that the wound on his right ankle has "been there forever". Patient does not recall how it started. Patient states that he has not had any trauma to the ankle. Patient states that he does have some pain overlying the ulceration, but states that it has improved. States that he the ulceration had been much worse, draining purulence, but does state that he doesnt recall any bone being exposed. Denies any other complaints at this time. Denies any f/c/n/v/sob. Past Patient History - Tetanus Immunizations Tetanus Immunization: Unknown - Past Medical History & Family History Past Medical History?: No - Past Social History Smoking Status: Former Smoker - CARDIAC Hx Heart Attack: Yes Hx Hypercholesterolemia: Yes Hx Hypertension: Yes Other/Comment: stent placement - PULMONARY Hx Respiratory Disorders: No - NEUROLOGICAL Hx Paralysis: No - HEENT Hx HEENT Problems: No - RENAL Hx Chronic Kidney Disease: Yes Hx Kidney Stones: Yes - ENDOCRINE/METABOLIC Hx Endocrine Disorders: Yes Hx Diabetes Mellitus Type 2: Yes - HEMATOLOGICAL/ONCOLOGICAL Hx Anemia: Yes Hx Blood Transfusions: No Hx Blood Transfusion Reaction: No - INTEGUMENTARY Hx Dermatological Problems: Yes Hx Cellulitis: Yes - MUSCULOSKELETAL/RHEUMATOLOGICAL Hx Musculoskeletal Disorders: Yes Hx Back Pain: Yes Hx Falls: Yes Hx Spinal Stenosis: Yes - GASTROINTESTINAL Hx Gastrointestinal Disorders: No - GENITOURINARY/GYNECOLOGICAL Hx Genitourinary Disorders: No Hx Prostate Problems: Yes - PSYCHIATRIC Hx Substance Use: No - SURGICAL HISTORY Hx Coronary Stent: Yes - ANESTHESIA Hx Anesthesia: Yes Hx Anesthesia Reactions: No Hx Malignant Hyperthermia: No Meds Allergies/Adverse Reactions: Allergies Allergy/AdvReac Type Severity Reaction Status Date / Time No Known Allergies Allergy Unverified 05/03/15 14:16 - Medications Medications: Current Medications Famotidine (Pepcid) 20 mg PO BID [facility] Last Admin: 09/06/16 09:36 Dose: 20 mg Folic Acid (Folic Acid) 1 mg PO DAILY [facility] Last Admin: 09/06/16 09:36 Dose: 1 mg Ciprofloxacin (Cipro 400mg/200ml Dsw) 200 mls @ 133 mls/hr IVPB Q12H [facility] Last Admin: 09/06/16 08:14 Dose: 133 mls/hr Dextrose/Sodium Chloride (Dextrose 5%/0.45% Ns 1000 Ml) 1,000 mls @ 75 mls/hr IV .[id number] [facility] Last Admin: 09/05/16 16:55 Dose: Not Given Insulin Glargine (Lantus) 10 unit SC [facility] Last Admin: 09/05/16 23:41 Dose: 10 units Insulin Human Regular (Novolin R) 0 unit SC [facility] PRN Reason: Protocol Last Admin: 09/06/16 08:27 Dose: 2 unit Isosorbide Mononitrate (Imdur) 30 mg PO DAILY [facility] Last Admin: 09/06/16 09:36 Dose: 30 mg Metoprolol Succinate (Toprol Xl) 12.5 mg PO Q24H [facility] Last Admin: 09/05/16 18:26 Dose: 12.5 mg Ranolazine (Ranexa) 500 mg PO BID [facility] Last Admin: 09/06/16 09:36 Dose: 500 mg Rosuvastatin Calcium (Crestor) 20 mg PO [facility] Last Admin: 09/05/16 23:39 Dose: 20 mg Thiamine HCl (Vitamin B1 Tab) 100 mg PO DAILY [facility] Last Admin: 09/06/16 09:36 Dose: 100 mg Physical Exam - Constitutional Appears: Well, Non-toxic, No Acute Distress - Neurological Exam Neurological exam: Alert, Oriented x3 - Psychiatric Exam Psychiatric exam: Normal Affect, Normal Mood - Skin Skin Exam: Warm - Additional Findings Additional findings: Vasc: DP non palp, PT 1/4, Temp gradient is wnl, warm around ulcration, Cap fill time diminished Derm: There is a roughly 4x3cm ulceration noted at the anteromedial aspect of the patients right ankle overlying the medial mall; there is sero-sanguinous drainage noted, no purulence noted, the wound does not probe to bone, no tendons exposed, no undermining noted, the woudn is roughly 70/30 granulofibrous ; mild surrounding erythema noted, mild edema noted Nuero: Grossly diminished Ortho: limited eval Results - Vital Signs Recent Vital Signs: Last Vital Signs Temp 97.3 F L 09/06/16 07:55 Pulse 62 09/06/16 07:55 Resp 17 09/06/16 07:55 BP 148/61 09/06/16 07:55 Pulse Ox 98 09/06/16 07:55 - Labs Result Diagrams: 09/06/16 06:08 09/06/16 06:08 Labs: Laboratory Results - last 24 hr 09/05/16 09/05/16 09/06/16 17:02 21:14 04:07 WBC RBC Hgb Hct MCV MCH MCHC RDW Plt Count MPV Neut % (Auto) Lymph % (Auto) [place] % (Auto) Eos % (Auto) Baso % (Auto) Neut # Lymph # [place] # Eos # Baso # Neutrophils % (Manual) Band Neutrophils % Lymphocytes % (Manual) Reactive Lymphs % Monocytes % (Manual) Eosinophils % (Manual) Platelet Estimate Hypochromasia (manual) Anisocytosis (manual) Ovalocytes Sodium Potassium Chloride Carbon Dioxide Anion Gap BUN Creatinine Est GFR ( Amer) Est GFR (Non-Af Amer) POC Glucose (mg/dL) 213 H 389 H 208 H Random Glucose Calcium Phosphorus Magnesium Total Bilirubin AST ALT Alkaline Phosphatase Total Protein Albumin Globulin Albumin/Globulin Ratio 09/06/16 09/06/16 09/06/16 06:08 06:08 06:15 WBC 2.2 L RBC 3.49 L Hgb 9.0 L Hct 26.6 L MCV 76.4 L MCH 25.7 L MCHC 33.6 RDW 20.8 H Plt Count 106 L MPV 9.1 Neut % (Auto) 15.2 L Lymph % (Auto) 45.4 H [place] % (Auto) 34.7 H Eos % (Auto) 4.0 Baso % (Auto) 0.7 Neut # 0.3 L Lymph # 1.0 [place] # 0.8 Eos # 0.1 Baso # 0.0 Neutrophils % (Manual) 16 L Band Neutrophils % 3 H Lymphocytes % (Manual) 50 H Reactive Lymphs % 2 H Monocytes % (Manual) 23 H Eosinophils % (Manual) 6 H Platelet Estimate Slightly decreased L Hypochromasia (manual) Slight Anisocytosis (manual) Moderate Ovalocytes Slight Sodium 139 Potassium 3.8 Chloride 106 Carbon Dioxide 22 Anion Gap 14 BUN 14 Creatinine 1.0 Est GFR ( Amer) > 60 Est GFR (Non-Af Amer) > 60 POC Glucose (mg/dL) 193 H Random Glucose 168 H Calcium 8.4 L Phosphorus 2.5 Magnesium 2.0 Total Bilirubin 0.5 AST 19 ALT 15 L D Alkaline Phosphatase 87 Total Protein 6.9 Albumin 3.1 L Globulin 3.9 Albumin/Globulin Ratio 0.8 L Assessment & Plan - Assessment and Plan (Free Text) Assessment: 71 y/o male with right ankle ulceration with underlying tibial OM. Plan: Patient evaluated and charts reviewed; Seen with attending Dr. Ramirez at bedside; Wound was cleansed with saline and redressed with xeroform and DSD. Hospital course reviewed; patient has had angio; 99% stenosis of tibial peroneal trunk and proximal peroneal artery. single vessel runoff via peroneal with reconsituion of posterior tibial at ankle. 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 [address] NPO after midnight on saturday; will continue to follow
[2016-09-06] MEDS: Metoprolol Succinate 12.5 mg XL PO SCH (17:24)
--- NOTE | 2016-09-06 17:39 | CP.PCM.CON ---
History of Present Illness - History of Present Illness History of Present Illness: 71 year old male with a history of DM, CAD complicated by [facility] s/p stent, PVD, admitted with worsening LE ulcer, found to be pancytopenic. The patient reports to a chronic right foot ulcer that began to start smelling bad. This concerned him and he came to the hospital. He underwent PRBC transfusion for a hgb of 6.7 but denies abnormal bleeding and bruising. He denies fevers and chills. He is unaware of having blood problems in the past. Past medial history: DM, CAD complicated by [facility] s/p stent, PVD Past surgical history: None Family history: Denies hematologic and oncologic problems Social history: Former tobacco and alcohol abuse. Allergies: NKA Review of systems: All remaining review of systems including HEENT, cardiovascular, respiratory, gastrointestinal, genitourinary, musculoskeletal, dermatologic, neurologic, and psychiatric are negative unless mentioned in the HPI. Past Patient History - Tetanus Immunizations Tetanus Immunization: Unknown - Past Medical History & Family History Past Medical History?: No - Past Social History Smoking Status: Former Smoker - CARDIAC Hx Heart Attack: Yes Hx Hypercholesterolemia: Yes Hx Hypertension: Yes Other/Comment: stent placement - PULMONARY Hx Respiratory Disorders: No - NEUROLOGICAL Hx Paralysis: No - HEENT Hx HEENT Problems: No - RENAL Hx Chronic Kidney Disease: Yes Hx Kidney Stones: Yes - ENDOCRINE/METABOLIC Hx Endocrine Disorders: Yes Hx Diabetes Mellitus Type 2: Yes - HEMATOLOGICAL/ONCOLOGICAL Hx Anemia: Yes Hx Blood Transfusions: No Hx Blood Transfusion Reaction: No - INTEGUMENTARY Hx Dermatological Problems: Yes Hx Cellulitis: Yes - MUSCULOSKELETAL/RHEUMATOLOGICAL Hx Musculoskeletal Disorders: Yes Hx Back Pain: Yes Hx Falls: Yes Hx Spinal Stenosis: Yes - GASTROINTESTINAL Hx Gastrointestinal Disorders: No - GENITOURINARY/GYNECOLOGICAL Hx Genitourinary Disorders: No Hx Prostate Problems: Yes - PSYCHIATRIC Hx Substance Use: No - SURGICAL HISTORY Hx Coronary Stent: Yes - ANESTHESIA Hx Anesthesia: Yes Hx Anesthesia Reactions: No Hx Malignant Hyperthermia: No Meds Allergies/Adverse Reactions: Allergies Allergy/AdvReac Type Severity Reaction Status Date / Time No Known Allergies Allergy Unverified 05/03/15 14:16 - Medications Medications: Current Medications Famotidine (Pepcid) 20 mg PO BID [facility] Last Admin: 09/06/16 17:24 Dose: 20 mg Folic Acid (Folic Acid) 1 mg PO DAILY [facility] Last Admin: 09/06/16 09:36 Dose: 1 mg Ciprofloxacin (Cipro 400mg/200ml Dsw) 200 mls @ 133 mls/hr IVPB Q12H [facility] Last Admin: 09/06/16 08:14 Dose: 133 mls/hr Dextrose/Sodium Chloride (Dextrose 5%/0.45% Ns 1000 Ml) 1,000 mls @ 75 mls/hr IV .[id number] [facility] Last Admin: 09/05/16 16:55 Dose: Not Given Insulin Glargine (Lantus) 10 unit SC [facility] Last Admin: 09/05/16 23:41 Dose: 10 units Insulin Human Regular (Novolin R) 0 unit SC [facility] PRN Reason: Protocol Last Admin: 09/06/16 17:24 Dose: 6 unit Isosorbide Mononitrate (Imdur) 30 mg PO DAILY [facility] Last Admin: 09/06/16 09:36 Dose: 30 mg Metoprolol Succinate (Toprol Xl) 12.5 mg PO Q24H [facility] Last Admin: 09/06/16 17:24 Dose: 12.5 mg Ranolazine (Ranexa) 500 mg PO BID [facility] Last Admin: 09/06/16 17:24 Dose: 500 mg Rosuvastatin Calcium (Crestor) 20 mg PO [facility] Last Admin: 09/05/16 23:39 Dose: 20 mg Thiamine HCl (Vitamin B1 Tab) 100 mg PO DAILY [facility] Last Admin: 09/06/16 09:36 Dose: 100 mg Results - Vital Signs Recent Vital Signs: Last Vital Signs Temp 98.0 F 09/06/16 15:31 Pulse 60 09/06/16 15:31 Resp 20 09/06/16 15:31 BP 133/60 09/06/16 15:31 Pulse Ox 98 09/06/16 15:31 - Labs Result Diagrams: 09/06/16 06:08 09/06/16 06:08 Labs: Laboratory Results - last 24 hr 09/05/16 09/06/16 09/06/16 21:14 04:07 06:08 WBC 2.2 L RBC 3.49 L Hgb 9.0 L Hct 26.6 L MCV 76.4 L MCH 25.7 L MCHC 33.6 RDW 20.8 H Plt Count 106 L MPV 9.1 Neut % (Auto) 15.2 L Lymph % (Auto) 45.4 H [place] % (Auto) 34.7 H Eos % (Auto) 4.0 Baso % (Auto) 0.7 Neut # 0.3 L Lymph # 1.0 [place] # 0.8 Eos # 0.1 Baso # 0.0 Neutrophils % (Manual) 16 L Band Neutrophils % 3 H Lymphocytes % (Manual) 50 H Reactive Lymphs % 2 H Monocytes % (Manual) 23 H Eosinophils % (Manual) 6 H Platelet Estimate Slightly decreased L Hypochromasia (manual) Slight Anisocytosis (manual) Moderate Ovalocytes Slight Sodium Potassium Chloride Carbon Dioxide Anion Gap BUN Creatinine Est GFR ( Amer) Est GFR (Non-Af Amer) POC Glucose (mg/dL) 389 H 208 H Random Glucose Calcium Phosphorus Magnesium Total Bilirubin AST ALT Alkaline Phosphatase Total Protein Albumin Globulin Albumin/Globulin Ratio 09/06/16 09/06/16 09/06/16 06:08 06:15 11:37 WBC RBC Hgb Hct MCV MCH MCHC RDW Plt Count MPV Neut % (Auto) Lymph % (Auto) [place] % (Auto) Eos % (Auto) Baso % (Auto) Neut # Lymph # [place] # Eos # Baso # Neutrophils % (Manual) Band Neutrophils % Lymphocytes % (Manual) Reactive Lymphs % Monocytes % (Manual) Eosinophils % (Manual) Platelet Estimate Hypochromasia (manual) Anisocytosis (manual) Ovalocytes Sodium 139 Potassium 3.8 Chloride 106 Carbon Dioxide 22 Anion Gap 14 BUN 14 Creatinine 1.0 Est GFR ( Amer) > 60 Est GFR (Non-Af Amer) > 60 POC Glucose (mg/dL) 193 H 322 H Random Glucose 168 H Calcium 8.4 L Phosphorus 2.5 Magnesium 2.0 Total Bilirubin 0.5 AST 19 ALT 15 L D Alkaline Phosphatase 87 Total Protein 6.9 Albumin 3.1 L Globulin 3.9 Albumin/Globulin Ratio 0.8 L 09/06/16 16:09 WBC RBC Hgb Hct MCV MCH MCHC RDW Plt Count MPV Neut % (Auto) Lymph % (Auto) [place] % (Auto) Eos % (Auto) Baso % (Auto) Neut # Lymph # [place] # Eos # Baso # Neutrophils % (Manual) Band Neutrophils % Lymphocytes % (Manual) Reactive Lymphs % Monocytes % (Manual) Eosinophils % (Manual) Platelet Estimate Hypochromasia (manual) Anisocytosis (manual) Ovalocytes Sodium Potassium Chloride Carbon Dioxide Anion Gap BUN Creatinine Est GFR ( Amer) Est GFR (Non-Af Amer) POC Glucose (mg/dL) 289 H Random Glucose Calcium Phosphorus Magnesium Total Bilirubin AST ALT Alkaline Phosphatase Total Protein Albumin Globulin Albumin/Globulin Ratio Assessment & Plan (1) Pancytopenia Assessment and Plan: with moderate neutropenia HIV and hep panel negative will check ferritin, retic count, b12, folate, FOBT to further characterize the pts anemia s/p transfusion support will consider bone marrow evaluation if cytopenias persist Thank you for this interesting consult. Status: Acute
--- NOTE | 2016-09-06 21:51 | CP.PCM.PN ---
Subjective - Date & Time of Evaluation Date of Evaluation: 09/06/16 Time of Evaluation: 10:20 - Subjective Subjective: feels better mild leg pain Objective - Vital Signs/Intake and Output Vital Signs (last 24 hours): Temp Pulse Resp BP Pulse Ox 98.0 F 60 20 133/60 98 09/06/16 15:31 09/06/16 15:31 09/06/16 15:31 09/06/16 15:31 09/06/16 15:31 - Medications Medications: Current Medications Famotidine (Pepcid) 20 mg PO BID [facility] Last Admin: 09/06/16 17:24 Dose: 20 mg Folic Acid (Folic Acid) 1 mg PO DAILY [facility] Last Admin: 09/06/16 09:36 Dose: 1 mg Ciprofloxacin (Cipro 400mg/200ml Dsw) 200 mls @ 133 mls/hr IVPB Q12H [facility] Last Admin: 09/06/16 20:35 Dose: 133 mls/hr Dextrose/Sodium Chloride (Dextrose 5%/0.45% Ns 1000 Ml) 1,000 mls @ 75 mls/hr IV .[id number] [facility] Last Admin: 09/05/16 16:55 Dose: Not Given Insulin Glargine (Lantus) 10 unit SC [facility] Last Admin: 09/05/16 23:41 Dose: 10 units Insulin Human Regular (Novolin R) 0 unit SC [facility] PRN Reason: Protocol Last Admin: 09/06/16 17:24 Dose: 6 unit Isosorbide Mononitrate (Imdur) 30 mg PO DAILY [facility] Last Admin: 09/06/16 09:36 Dose: 30 mg Metoprolol Succinate (Toprol Xl) 12.5 mg PO Q24H [facility] Last Admin: 09/06/16 17:24 Dose: 12.5 mg Ranolazine (Ranexa) 500 mg PO BID [facility] Last Admin: 09/06/16 17:24 Dose: 500 mg Rosuvastatin Calcium (Crestor) 20 mg PO HS [facility] Last Admin: 09/05/16 23:39 Dose: 20 mg Thiamine HCl (Vitamin B1 Tab) 100 mg PO DAILY [facility] Last Admin: 09/06/16 09:36 Dose: 100 mg - Labs Labs: 09/06/16 06:08 09/06/16 06:08 PT 13.2 SECONDS (9.7-12.2) H 09/04/16 06:48 INR 1.2 09/04/16 06:48 APTT 34 SECONDS (21-34) 09/04/16 06:48 - Constitutional Appears: Well - Head Exam Head Exam: ATRAUMATIC, NORMAL INSPECTION, NORMOCEPHALIC - Eye Exam Eye Exam: EOMI, Normal appearance, PERRL Pupil Exam: NORMAL ACCOMODATION, PERRL - ENT Exam ENT Exam: Mucous Membranes Moist, Normal Exam - Neck Exam Neck Exam: Full ROM, Normal Inspection. absent: Lymphadenopathy - Respiratory Exam Respiratory Exam: Decreased Breath Sounds - Cardiovascular Exam Cardiovascular Exam: REGULAR RHYTHM, +S1, +S2 - GI/Abdominal Exam GI & Abdominal Exam: Soft, Diminished Bowel Sounds - Rectal Exam Rectal Exam: Deferred Assessment and Plan (1) Anemia Status: Acute (2) Chest pain Status: Acute (3) Diabetes mellitus with ulcer of ankle Status: Acute (4) Diabetes mellitus, new onset Status: Acute (5) Gastrointestinal hemorrhage Status: Acute (6) Infected ulcer of skin Status: Acute (7) PAD (peripheral artery disease) Status: Acute (8) Pancytopenia Status: Acute (9) Pneumonia Status: Acute (10) Prophylactic measure Status: Acute (11) CAD (coronary artery disease) Status: Chronic (12) Diabetes mellitus Status: Chronic - Assessment and Plan (Free Text) Plan: DR daisy sawant. H/H monitor [place]. wound care bone marrow biopsy recomendded conit. Iv antibiotics
[2016-09-06] MEDS: (Lantus) Insulin Glargine, Recombinant SC SCH (22:36)
[2016-09-07 07:28] LABS: BASO % 0.8 % (0.0-2.0); EOS # 0.1 K/uL (0.0-0.7); EOS % 4.7 % (0.0-4.0); HEMATOCRIT 25.5 % (35.0-51.0); LYMPH # 1.1 K/uL (1.0-4.3); LYMPH % 48.4 % (20.0-40.0); MEAN CELL VOLUME 76.4 fL (80.0-94.0); MEAN CORPUSCULAR HEMOGLOBIN 25.9 pg (27.0-31.0); MEAN CORPUSCULAR HGB CONC 33.9 g/dL (33.0-37.0); MEAN PLATELET VOLUME 9.4 fL (7.2-11.7); MONO # 0.7 K/uL (0.0-0.8); MONO % 30.2 % (0.0-10.0); NRBC % 0.2 % (0.0-2.0); PLATELET COUNT 101 K/uL (130-400); RED CELL DISTRIBUTION WIDTH 21.1 % (11.5-14.5); WHITE BLOOD COUNT 2.2 K/uL (4.8-10.8)
[2016-09-07 07:54] LABS: CHLORIDE 105 mmol/L (98-107); POTASSIUM 3.8 mmol/L (3.6-5.2); SODIUM 140 mmol/L (132-148)
[2016-09-07 07:56] LABS: BILIRUBIN,TOTAL 0.5 mg/dL (0.2-1.3); CARBON DIOXIDE 23 mmol/L (22-30); GFR AFRICAN-AMERICAN > 60
[2016-09-07 07:57] LABS: ALB/GLOB RATIO 0.8 (1.0-2.1); ALKALINE PHOSPHATASE 88 U/L (38-126); ALT/SGPT 17 U/L (21-72); AST/SGOT 18 U/L (17-59); BLOOD UREA NITROGEN 14 mg/dL (9-20); CALCIUM 8.4 mg/dl (8.6-10.4); GLUCOSE,RANDOM 170 mg/dL (75-110); PHOSPHOROUS 2.6 mg/dL (2.5-4.5); TOTAL PROTEIN 6.7 g/dL (6.3-8.3)
[2016-09-07 07:58] LABS: MAGNESIUM 1.8 mg/dL (1.6-2.3)
[2016-09-07] MEDS: (Novolin R) Insulin Human Regular 100 units/ml vial SC SCH ×4 (08:04→22:00)
[2016-09-07] MEDS: Ciprofloxacin 400mg/200ml D5W 200 ML IVPB SCH ×2 (08:05→21:41)
[2016-09-07 08:53] LABS: EOSINOPHIL 2 % (0-4); NEUTROPHIL 30 % (50-75); TOTAL CELLS COUNTED 50
[2016-09-07 08:54] LABS: LARGE PLATELETS PRESENT
[2016-09-07] MEDS: Ranolazine 500 mg Extended Release Tablets PO SCH ×2 (09:16→18:31)
--- NOTE | 2016-09-07 09:28 | CP.PCM.PN ---
Subjective - Date & Time of Evaluation Date of Evaluation: 09/07/16 Time of Evaluation: 09:25 - Subjective Subjective: 71 y/o male with RLE ulceration of anteromedial tibia with undelrying osteomyelitis. Patient states that this morning he is feeling well but appears annoyed. Patient states that his insurance keeps bugging him about discharge date. States that he understands on saturday morning he will be going for a wound debridement with bone biopsy. Patient understands nothing to eat past midnight on saturday. Denies any f/c/n/v/sob at this time. Objective - Vital Signs/Intake and Output Vital Signs (last 24 hours): Temp Pulse Resp BP Pulse Ox 98.2 F 64 18 136/60 98 09/07/16 07:20 09/07/16 07:20 09/07/16 07:20 09/07/16 07:20 09/07/16 07:20 Intake and Output: 09/07/16 09/07/16 06:59 18:59 Intake Total 1840 Output Total 1450 Balance 390 - Medications Medications: Current Medications Famotidine (Pepcid) 20 mg PO BID [facility] Last Admin: 09/07/16 09:16 Dose: 20 mg Folic Acid (Folic Acid) 1 mg PO DAILY [facility] Last Admin: 09/07/16 09:16 Dose: 1 mg Ciprofloxacin (Cipro 400mg/200ml Dsw) 200 mls @ 133 mls/hr IVPB Q12H [facility] Last Admin: 09/07/16 08:05 Dose: 133 mls/hr Dextrose/Sodium Chloride (Dextrose 5%/0.45% Ns 1000 Ml) 1,000 mls @ 75 mls/hr IV .[id number] [facility] Last Admin: 09/05/16 16:55 Dose: Not Given Insulin Glargine (Lantus) 10 unit SC HS [facility] Last Admin: 09/06/16 22:36 Dose: 10 units Insulin Human Regular (Novolin R) 0 unit SC [facility] PRN Reason: Protocol Last Admin: 09/07/16 08:04 Dose: 2 unit Isosorbide Mononitrate (Imdur) 30 mg PO DAILY [facility] Last Admin: 09/07/16 09:16 Dose: 30 mg Metoprolol Succinate (Toprol Xl) 12.5 mg PO Q24H [facility] Last Admin: 09/06/16 17:24 Dose: 12.5 mg Ranolazine (Ranexa) 500 mg PO BID [facility] Last Admin: 09/07/16 09:16 Dose: 500 mg Rosuvastatin Calcium (Crestor) 20 mg PO HS [facility] Last Admin: 09/06/16 22:36 Dose: 20 mg Thiamine HCl (Vitamin B1 Tab) 100 mg PO DAILY [facility] Last Admin: 09/07/16 09:16 Dose: 100 mg - Labs Labs: 09/07/16 07:12 09/07/16 07:12 PT 13.2 SECONDS (9.7-12.2) H 09/04/16 06:48 INR 1.2 09/04/16 06:48 APTT 34 SECONDS (21-34) 09/04/16 06:48 - Constitutional Appears: Well, Non-toxic - Neurological Exam Neurological Exam: Alert, Awake, Oriented x3 - Psychiatric Exam Psychiatric exam: Normal Affect, Normal Mood - Skin Skin Exam: Erythema - Additional Findings Additional findings: Vasc: DP non palp, PT 1/4, Temp gradient is wnl, warm around ulcration, Cap fill time diminished Derm: There is a roughly 4x3cm ulceration noted at the anteromedial aspect of the patients right ankle overlying the medial mall; there is sero-sanguinous drainage noted, no purulence noted, the wound does not probe to bone, no tendons exposed, no undermining noted, the woudn is roughly 70/30 granulofibrous ; mild surrounding erythema noted, mild edema noted Nuero: Grossly diminished Ortho: limited eval Assessment and Plan - Assessment and Plan (Free Text) Assessment: 71 y/o male with right ankle ulceration with underlying tibial OM. Plan: Patient evaluated and chart reviewed Discussed with Dr. Ramirez Patient shcheudle for OR on saturday morning for wound debridment with bone biopsy. Wound cleansed and redressed with xeroform an dDSD. NPO to be placed saturday after midnight. To hold anticoags Will continue to follow.
--- NOTE | 2016-09-07 12:55 | CP.PCM.PN ---
Subjective - Date & Time of Evaluation Date of Evaluation: 09/07/16 Time of Evaluation: 12:50 - Subjective Subjective: Patient seen and examined. Patient is complaining of mild pain in his foot. Pending physical therapy evaluation. Encouraged patient to sit up in bed and move. Denies chest pain and shortness of breath. Objective - Vital Signs/Intake and Output Vital Signs (last 24 hours): Temp Pulse Resp BP Pulse Ox 98.2 F 64 18 136/60 98 09/07/16 07:20 09/07/16 07:20 09/07/16 07:20 09/07/16 07:20 09/07/16 07:20 Intake and Output: 09/07/16 09/07/16 06:59 18:59 Intake Total 1840 Output Total 1450 Balance 390 - Medications Medications: Current Medications Famotidine (Pepcid) 20 mg PO BID [facility] Last Admin: 09/07/16 09:16 Dose: 20 mg Folic Acid (Folic Acid) 1 mg PO DAILY [facility] Last Admin: 09/07/16 09:16 Dose: 1 mg Ciprofloxacin (Cipro 400mg/200ml Dsw) 200 mls @ 133 mls/hr IVPB Q12H [facility] Last Admin: 09/07/16 08:05 Dose: 133 mls/hr Dextrose/Sodium Chloride (Dextrose 5%/0.45% Ns 1000 Ml) 1,000 mls @ 75 mls/hr IV .[id number] [facility] Last Admin: 09/05/16 16:55 Dose: Not Given Insulin Glargine (Lantus) 10 unit SC [facility] Last Admin: 09/06/16 22:36 Dose: 10 units Insulin Human Regular (Novolin R) 0 unit SC [facility] PRN Reason: Protocol Last Admin: 09/07/16 12:28 Dose: 4 unit Isosorbide Mononitrate (Imdur) 30 mg PO DAILY [facility] Last Admin: 09/07/16 09:16 Dose: 30 mg Metoprolol Succinate (Toprol Xl) 12.5 mg PO Q24H [facility] Last Admin: 09/06/16 17:24 Dose: 12.5 mg Ranolazine (Ranexa) 500 mg PO BID [facility] Last Admin: 09/07/16 09:16 Dose: 500 mg Rosuvastatin Calcium (Crestor) 20 mg PO [facility] Last Admin: 09/06/16 22:36 Dose: 20 mg Thiamine HCl (Vitamin B1 Tab) 100 mg PO DAILY [facility] Last Admin: 09/07/16 09:16 Dose: 100 mg - Labs Labs: 09/07/16 07:12 09/07/16 07:12 PT 13.2 SECONDS (9.7-12.2) H 09/04/16 06:48 INR 1.2 09/04/16 06:48 APTT 34 SECONDS (21-34) 09/04/16 06:48 - Additional Findings Additional findings: - Constitutional Appears: Non-toxic, No Acute Distress - Head Exam Head Exam: NORMAL INSPECTION - Eye Exam Eye Exam: EOMI - ENT Exam ENT Exam: Mucous Membranes Moist - Respiratory Exam Respiratory Exam: Clear to Ausculation Bilateral, NORMAL BREATHING PATTERN. absent: Rales, Rhonchi, Wheezes - Cardiovascular Exam Cardiovascular Exam: REGULAR RHYTHM, +S1, +S2. absent: Gallop, Rubs, Murmur - GI/Abdominal Exam GI & Abdominal Exam: Soft, Normal Bowel Sounds. 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 Bishop - help appreciated Surgery consulted- Dr. Lugo - help appreciated. POD #1 s/p OR yesterday- aortofemoral angiogram via lefrt groin, selective catherization of right side, balloon angioplasty of peroneal artery. Blood cultures negative after 5 days 08/28/16 Wound culture - positive for proteus mirabilis, pseudomonas aeruginosa and corynebacterium species 08/30/16 MRI ankle - positive for osteomyelsitis. prominent ulceration seen within medial soft tissues at the level of the left ankle. Marked signal abnormality seen within medial malleolus and distal tibia at the ankle joint space with heterogeneously increased STIR signal with patchy decreased T1 signal concerning for an acute osteomyelitis. Superimposed osteonecrosis and or avascular necrosis cannot entirely be excluded. Some patchy reactive signal with increased STIR and mild patchy decreased T1 signal noted within the anteromedial talus which may represent some developing acute osteomyelsitis. Mild tenosynovitis of the anterior tibial tensionsheath and posterior tendon sheath. Cipro 400mg IVPB Q12H started 08/31/16 Pancytopenia Heme/Onc consult - Dr. Knutson - f/u recommendations Neutropenia Neutrophils 0.3 Per nursing, the hospital no longer does anything for neutropenic precautions bedsides washing hands Placed call to RN in charge of ID at the hospital, awaiting call back DM RISS Lantus 10U SC HS HTN Imdur 30mg PO daily Toprol XL 12.5mg PO daily Hyperlipidemia Crestor 20mg PO HS Anemia Ferrlecit 125mg IVPB daily Prophylaxis Protonix 40mg PO discontinued due to decreased platelets, started pepcid 20mg PO BID SCDs contraindicated secondary to infection All management per Dr. Tim Ramírez
--- NOTE | 2016-09-07 16:55 | CP.PCM.PN ---
Subjective - Date & Time of Evaluation Date of Evaluation: 09/07/16 Time of Evaluation: 10:40 - Subjective Subjective: clinically same Objective - Vital Signs/Intake and Output Vital Signs (last 24 hours): Temp Pulse Resp BP Pulse Ox 98.2 F 64 18 136/60 98 09/07/16 07:20 09/07/16 07:20 09/07/16 07:20 09/07/16 07:20 09/07/16 07:20 Intake and Output: 09/07/16 09/07/16 06:59 18:59 Intake Total 1840 Output Total 1450 Balance 390 - Medications Medications: Current Medications Famotidine (Pepcid) 20 mg PO BID [facility] Last Admin: 09/07/16 09:16 Dose: 20 mg Folic Acid (Folic Acid) 1 mg PO DAILY [facility] Last Admin: 09/07/16 09:16 Dose: 1 mg Ciprofloxacin (Cipro 400mg/200ml Dsw) 200 mls @ 133 mls/hr IVPB Q12H [facility] Last Admin: 09/07/16 08:05 Dose: 133 mls/hr Insulin Glargine (Lantus) 10 unit SC [facility] Last Admin: 09/06/16 22:36 Dose: 10 units Insulin Human Regular (Novolin R) 0 unit SC [facility] PRN Reason: Protocol Last Admin: 09/07/16 12:28 Dose: 4 unit Isosorbide Mononitrate (Imdur) 30 mg PO DAILY [facility] Last Admin: 09/07/16 09:16 Dose: 30 mg Metoprolol Succinate (Toprol Xl) 12.5 mg PO Q24H [facility] Last Admin: 09/06/16 17:24 Dose: 12.5 mg Ranolazine (Ranexa) 500 mg PO BID [facility] Last Admin: 09/07/16 09:16 Dose: 500 mg Rosuvastatin Calcium (Crestor) 20 mg PO HS [facility] Last Admin: 09/06/16 22:36 Dose: 20 mg Thiamine HCl (Vitamin B1 Tab) 100 mg PO DAILY [facility] Last Admin: 09/07/16 09:16 Dose: 100 mg - Labs Labs: 09/07/16 07:12 09/07/16 07:12 PT 13.2 SECONDS (9.7-12.2) H 09/04/16 06:48 INR 1.2 09/04/16 06:48 APTT 34 SECONDS (21-34) 09/04/16 06:48 - Constitutional Appears: Well - Head Exam Head Exam: ATRAUMATIC, NORMAL INSPECTION, NORMOCEPHALIC - Eye Exam Eye Exam: EOMI, Normal appearance, PERRL Pupil Exam: NORMAL ACCOMODATION, PERRL - ENT Exam ENT Exam: Mucous Membranes Moist, Normal Exam - Neck Exam Neck Exam: Full ROM, Normal Inspection. absent: Lymphadenopathy - Respiratory Exam Respiratory Exam: Decreased Breath Sounds - Cardiovascular Exam Cardiovascular Exam: REGULAR RHYTHM, +S1, +S2 - GI/Abdominal Exam GI & Abdominal Exam: Soft, Diminished Bowel Sounds - Rectal Exam Rectal Exam: Deferred Assessment and Plan - Assessment and Plan (Free Text) Plan: DR daisy Apple DR, Brittney cinti. wound care conit. Iv antibiotics wound debridment and bone biopsy scheduled today
[2016-09-07] MEDS: Metoprolol Succinate 12.5 mg XL PO SCH (18:32)
--- NOTE | 2016-09-07 18:34 | CP.PCM.PN ---
Subjective - Date & Time of Evaluation Date of Evaluation: 09/07/16 Time of Evaluation: 08:00 - Subjective Subjective: wbc/plts low iv rx in progress consider d/c antibiotics and heme eval Objective - Vital Signs/Intake and Output Vital Signs (last 24 hours): Temp Pulse Resp BP Pulse Ox 97.4 F L 64 18 137/57 L 99 09/07/16 16:00 09/07/16 16:00 09/07/16 16:00 09/07/16 16:00 09/07/16 16:00 Intake and Output: 09/07/16 09/07/16 06:59 18:59 Intake Total 1840 Output Total 1450 Balance 390 - Medications Medications: Current Medications Famotidine (Pepcid) 20 mg PO BID [facility] Last Admin: 09/07/16 09:16 Dose: 20 mg Folic Acid (Folic Acid) 1 mg PO DAILY [facility] Last Admin: 09/07/16 09:16 Dose: 1 mg Ciprofloxacin (Cipro 400mg/200ml Dsw) 200 mls @ 133 mls/hr IVPB Q12H [facility] Last Admin: 09/07/16 08:05 Dose: 133 mls/hr Insulin Glargine (Lantus) 10 unit SC [facility] Last Admin: 09/06/16 22:36 Dose: 10 units Insulin Human Regular (Novolin R) 0 unit SC [facility] PRN Reason: Protocol Last Admin: 09/07/16 12:28 Dose: 4 unit Isosorbide Mononitrate (Imdur) 30 mg PO DAILY [facility] Last Admin: 09/07/16 09:16 Dose: 30 mg Metoprolol Succinate (Toprol Xl) 12.5 mg PO Q24H [facility] Last Admin: 09/06/16 17:24 Dose: 12.5 mg Ranolazine (Ranexa) 500 mg PO BID [facility] Last Admin: 09/07/16 09:16 Dose: 500 mg Rosuvastatin Calcium (Crestor) 20 mg PO HS [facility] Last Admin: 09/06/16 22:36 Dose: 20 mg Thiamine HCl (Vitamin B1 Tab) 100 mg PO DAILY [facility] Last Admin: 09/07/16 09:16 Dose: 100 mg - Labs Labs: 09/07/16 07:12 09/07/16 07:12 PT 13.2 SECONDS (9.7-12.2) H 09/04/16 06:48 INR 1.2 09/04/16 06:48 APTT 34 SECONDS (21-34) 09/04/16 06:48 - Constitutional Appears: Non-toxic, Cachectic, Chronically Ill - Head Exam Head Exam: NORMOCEPHALIC - Eye Exam Eye Exam: PERRL. absent: Scleral icterus - ENT Exam ENT Exam: Mucous Membranes Dry, Normal External Ear Exam - Neck Exam Neck Exam: absent: Lymphadenopathy - Respiratory Exam Respiratory Exam: Decreased Breath Sounds - Cardiovascular Exam Cardiovascular Exam: REGULAR RHYTHM - GI/Abdominal Exam GI & Abdominal Exam: Distended, Soft - Rectal Exam Rectal Exam: Deferred Assessment and Plan - Assessment and Plan (Free Text) Plan: neutropenia s/p or for pvd ulcer ankle r/o om
[2016-09-07] MEDS: (Lantus) Insulin Glargine, Recombinant SC SCH (21:41)
[2016-09-08 07:19] LABS: BASO % 0.8 % (0.0-2.0); EOS # 0.1 K/uL (0.0-0.7); EOS % 4.4 % (0.0-4.0); HEMATOCRIT 26.5 % (35.0-51.0); LYMPH # 1.1 K/uL (1.0-4.3); LYMPH % 51.4 % (20.0-40.0); MEAN CELL VOLUME 76.7 fL (80.0-94.0); MEAN CORPUSCULAR HEMOGLOBIN 25.2 pg (27.0-31.0); MEAN CORPUSCULAR HGB CONC 32.8 g/dL (33.0-37.0); MEAN PLATELET VOLUME 9.4 fL (7.2-11.7); MONO # 0.6 K/uL (0.0-0.8); MONO % 28.3 % (0.0-10.0); NRBC % 0.1 % (0.0-2.0); PLATELET COUNT 102 K/uL (130-400); RED CELL DISTRIBUTION WIDTH 20.5 % (11.5-14.5); WHITE BLOOD COUNT 2.1 K/uL (4.8-10.8)
[2016-09-08 07:33] LABS: CHLORIDE 105 mmol/L (98-107); POTASSIUM 3.7 mmol/L (3.6-5.2); SODIUM 139 mmol/L (132-148)
[2016-09-08 07:35] LABS: BILIRUBIN,TOTAL 0.6 mg/dL (0.2-1.3); CARBON DIOXIDE 24 mmol/L (22-30); GFR AFRICAN-AMERICAN > 60
[2016-09-08 07:36] LABS: ALB/GLOB RATIO 0.8 (1.0-2.1); ALKALINE PHOSPHATASE 97 U/L (38-126); ALT/SGPT 17 U/L (21-72); AST/SGOT 17 U/L (17-59); BLOOD UREA NITROGEN 12 mg/dL (9-20); CALCIUM 8.5 mg/dl (8.6-10.4); GLUCOSE,RANDOM 135 mg/dL (75-110); PHOSPHOROUS 2.6 mg/dL (2.5-4.5); TOTAL PROTEIN 6.9 g/dL (6.3-8.3)
[2016-09-08] MEDS: (Novolin R) Insulin Human Regular 100 units/ml vial SC SCH ×4 (08:10→21:15)
[2016-09-08] MEDS: Ciprofloxacin 400mg/200ml D5W 200 ML IVPB SCH ×2 (09:05→19:11)
--- NOTE | 2016-09-08 09:53 | CP.PCM.PN ---
Subjective - Date & Time of Evaluation Date of Evaluation: 09/08/16 Time of Evaluation: 10:00 - Subjective Subjective: clinically same Objective - Vital Signs/Intake and Output Vital Signs (last 24 hours): Temp Pulse Resp BP Pulse Ox 98.9 F 77 20 135/65 99 09/08/16 08:15 09/08/16 09:11 09/08/16 08:15 09/08/16 08:15 09/08/16 08:15 Intake and Output: 09/08/16 09/08/16 06:59 18:59 Intake Total 1860 Output Total 1600 Balance 260 - Medications Medications: Current Medications Famotidine (Pepcid) 20 mg PO BID [facility] Last Admin: 09/07/16 18:31 Dose: 20 mg Folic Acid (Folic Acid) 1 mg PO DAILY [facility] Last Admin: 09/07/16 09:16 Dose: 1 mg Ciprofloxacin (Cipro 400mg/200ml Dsw) 200 mls @ 133 mls/hr IVPB Q12H [facility] Last Admin: 09/07/16 21:41 Dose: 133 mls/hr Insulin Glargine (Lantus) 10 unit SC [facility] Last Admin: 09/07/16 21:41 Dose: 10 units Insulin Human Regular (Novolin R) 0 unit SC [facility] PRN Reason: Protocol Last Admin: 09/07/16 18:33 Dose: 8 unit Isosorbide Mononitrate (Imdur) 30 mg PO DAILY [facility] Last Admin: 09/07/16 09:16 Dose: 30 mg Metoprolol Succinate (Toprol Xl) 12.5 mg PO Q24H [facility] Last Admin: 09/07/16 18:32 Dose: 12.5 mg Ranolazine (Ranexa) 500 mg PO BID [facility] Last Admin: 09/07/16 18:31 Dose: 500 mg Rosuvastatin Calcium (Crestor) 20 mg PO HS [facility] Last Admin: 09/07/16 21:40 Dose: 20 mg Thiamine HCl (Vitamin B1 Tab) 100 mg PO DAILY [facility] Last Admin: 09/07/16 09:16 Dose: 100 mg - Labs Labs: 09/08/16 07:01 09/08/16 07:01 PT 13.2 SECONDS (9.7-12.2) H 09/04/16 06:48 INR 1.2 09/04/16 06:48 APTT 34 SECONDS (21-34) 09/04/16 06:48 - Constitutional Appears: Well - Head Exam Head Exam: ATRAUMATIC, NORMAL INSPECTION, NORMOCEPHALIC - Eye Exam Eye Exam: EOMI, Normal appearance, PERRL Pupil Exam: NORMAL ACCOMODATION, PERRL - ENT Exam ENT Exam: Mucous Membranes Moist, Normal Exam - Neck Exam Neck Exam: Full ROM, Normal Inspection. absent: Lymphadenopathy - Respiratory Exam Respiratory Exam: Decreased Breath Sounds - Cardiovascular Exam Cardiovascular Exam: REGULAR RHYTHM, +S1, +S2 - GI/Abdominal Exam GI & Abdominal Exam: Soft, Diminished Bowel Sounds - Rectal Exam Rectal Exam: Deferred Assessment and Plan - Assessment and Plan (Free Text) Plan: DR daisy Apple DR, Brittney savana. wound care savana. H/H monitor conit. Iv antibiotics
[2016-09-08 10:12] LABS: NEUTROPHIL 15 % (50-75); TOTAL CELLS COUNTED 100
[2016-09-08 10:13] LABS: EOSINOPHIL 4 % (0-4)
[2016-09-08] MEDS: Ranolazine 500 mg Extended Release Tablets PO SCH ×2 (10:24→17:25)
--- NOTE | 2016-09-08 12:37 | CP.PCM.PN ---
Subjective - Date & Time of Evaluation Date of Evaluation: 09/08/16 Time of Evaluation: 12:34 - Subjective Subjective: 71 y/o male with RLE ulceration of anteromedial tibia with underlying osteomyelitis. Patient seen at bedside with attending Dr. Ramirez for right ankle ulceration. Patient denies any acute events overnight. He denies any pain in his extremity at this time. He States that he understands on saturday morning he will be going for a wound debridement with bone biopsy. Patient understands nothing to eat past midnight on saturday. Denies any f/c/n/v/sob at this time. Objective - Vital Signs/Intake and Output Vital Signs (last 24 hours): Temp Pulse Resp BP Pulse Ox 98.9 F 77 20 135/65 99 09/08/16 08:15 09/08/16 09:11 09/08/16 08:15 09/08/16 08:15 09/08/16 08:15 Intake and Output: 09/08/16 09/08/16 06:59 18:59 Intake Total 1860 Output Total 1600 Balance 260 - Medications Medications: Current Medications Famotidine (Pepcid) 20 mg PO BID [facility] Last Admin: 09/08/16 10:24 Dose: 20 mg Folic Acid (Folic Acid) 1 mg PO DAILY [facility] Last Admin: 09/08/16 10:24 Dose: 1 mg Ciprofloxacin (Cipro 400mg/200ml Dsw) 200 mls @ 133 mls/hr IVPB Q12H [facility] Last Admin: 09/08/16 09:05 Dose: 133 mls/hr Insulin Glargine (Lantus) 10 unit SC [facility] Last Admin: 09/07/16 21:41 Dose: 10 units Insulin Human Regular (Novolin R) 0 unit SC [facility] PRN Reason: Protocol Last Admin: 09/08/16 12:06 Dose: 6 unit Isosorbide Mononitrate (Imdur) 30 mg PO DAILY [facility] Last Admin: 09/08/16 10:24 Dose: 30 mg Metoprolol Succinate (Toprol Xl) 12.5 mg PO Q24H [facility] Last Admin: 09/07/16 18:32 Dose: 12.5 mg Ranolazine (Ranexa) 500 mg PO BID [facility] Last Admin: 09/08/16 10:24 Dose: 500 mg Rosuvastatin Calcium (Crestor) 20 mg PO [facility] Last Admin: 09/07/16 21:40 Dose: 20 mg Thiamine HCl (Vitamin B1 Tab) 100 mg PO DAILY [facility] Last Admin: 09/08/16 10:24 Dose: 100 mg - Labs Labs: 09/08/16 07:01 09/08/16 07:01 PT 13.2 SECONDS (9.7-12.2) H 09/04/16 06:48 INR 1.2 09/04/16 06:48 APTT 34 SECONDS (21-34) 09/04/16 06:48 - Constitutional Appears: Well, Non-toxic, No Acute Distress - Extremities Exam Additional comments: Vasc: DP non palp, PT 1/4, Temp gradient is wnl, warm around ulcration, Cap fill time diminished Derm: There is a roughly 4x3cm ulceration noted at the anteromedial aspect of the patients right ankle overlying the medial mall; there is sero-sanguinous drainage noted, no purulence noted, the wound does not probe to bone, no tendons exposed, no undermining noted, the woudn is roughly 70/30 granulofibrous ; mild surrounding erythema noted, mild edema noted Nuero: Grossly diminished Ortho: limited eval - Neurological Exam Neurological Exam: Alert, Awake, Oriented x3 - Psychiatric Exam Psychiatric exam: Normal Affect, Normal Mood Assessment and Plan - Assessment and Plan (Free Text) Assessment: 71 y/o male with right ankle ulceration with underlying tibial OM. Plan: Patient evaluated and chart reviewed seen at bedside with attending Dr. Ramirez labs and vitals reviewed; afebrile, WBC 2.1 Patient scheduled for OR on saturday for wound debridment with bone biopsy. Wound cleansed and redressed with xeroform an DSD. NPO to be placed saturday after midnight. To hold anticoags needs medical optimization Will continue to follow.
[2016-09-08] MEDS: Metoprolol Succinate 12.5 mg XL PO SCH (17:26)
[2016-09-08] MEDS: (Lantus) Insulin Glargine, Recombinant SC SCH (21:15)
--- NOTE | 2016-09-09 01:42 | CP.PCM.PN ---
Subjective - Date & Time of Evaluation Date of Evaluation: 09/08/16 Time of Evaluation: 18:00 - Subjective Subjective: No complaints. Objective - Vital Signs/Intake and Output Vital Signs (last 24 hours): Temp Pulse Resp BP Pulse Ox 97.7 F 64 20 129/58 L 99 09/08/16 15:00 09/08/16 23:43 09/08/16 15:00 09/08/16 15:00 09/08/16 15:00 - Medications Medications: Current Medications Famotidine (Pepcid) 20 mg PO BID [facility] Last Admin: 09/08/16 17:25 Dose: 20 mg Folic Acid (Folic Acid) 1 mg PO DAILY [facility] Last Admin: 09/08/16 10:24 Dose: 1 mg Ciprofloxacin (Cipro 400mg/200ml Dsw) 200 mls @ 133 mls/hr IVPB Q12H [facility] Last Admin: 09/08/16 19:11 Dose: 133 mls/hr Insulin Glargine (Lantus) 10 unit SC [facility] Last Admin: 09/08/16 21:15 Dose: 10 units Insulin Human Regular (Novolin R) 0 unit SC [facility] PRN Reason: Protocol Last Admin: 09/08/16 21:15 Dose: 2 unit Isosorbide Mononitrate (Imdur) 30 mg PO DAILY [facility] Last Admin: 09/08/16 10:24 Dose: 30 mg Metoprolol Succinate (Toprol Xl) 12.5 mg PO Q24H [facility] Last Admin: 09/08/16 17:26 Dose: 12.5 mg Ranolazine (Ranexa) 500 mg PO BID [facility] Last Admin: 09/08/16 17:25 Dose: 500 mg Rosuvastatin Calcium (Crestor) 20 mg PO [facility] Last Admin: 09/08/16 21:15 Dose: 20 mg Thiamine HCl (Vitamin B1 Tab) 100 mg PO DAILY [facility] Last Admin: 09/08/16 10:24 Dose: 100 mg - Labs Labs: 09/08/16 07:01 09/08/16 07:01 PT 13.2 SECONDS (9.7-12.2) H 09/04/16 06:48 INR 1.2 09/04/16 06:48 APTT 34 SECONDS (21-34) 09/04/16 06:48 - Head Exam Head Exam: ATRAUMATIC - Eye Exam Eye Exam: Normal appearance - ENT Exam ENT Exam: Mucous Membranes Dry - Respiratory Exam Respiratory Exam: NORMAL BREATHING PATTERN - Cardiovascular Exam Cardiovascular Exam: +S1 - GI/Abdominal Exam GI & Abdominal Exam: Normal Bowel Sounds Assessment and Plan (1) Pancytopenia Assessment & Plan: HIV and hep panel negative anemia of chronic disease will consider bone marrow evaluation after wound debridement Status: Acute
[2016-09-09 06:23] LABS: BASO % 0.3 % (0.0-2.0); EOS # 0.1 K/uL (0.0-0.7); EOS % 4.6 % (0.0-4.0); LYMPH % 53.1 % (20.0-40.0); MEAN CELL VOLUME 76.6 fL (80.0-94.0); MEAN CORPUSCULAR HEMOGLOBIN 26.6 pg (27.0-31.0); MEAN CORPUSCULAR HGB CONC 34.8 g/dL (33.0-37.0); MEAN PLATELET VOLUME 9.8 fL (7.2-11.7); MONO # 0.6 K/uL (0.0-0.8); NRBC % 0.1 % (0.0-2.0); PLATELET COUNT 113 K/uL (130-400); RED CELL DISTRIBUTION WIDTH 20.8 % (11.5-14.5)
[2016-09-09 06:25] LABS: CHLORIDE 106 mmol/L (98-107)
[2016-09-09 06:26] LABS: POTASSIUM 3.6 mmol/L (3.6-5.2); SODIUM 141 mmol/L (132-148)
[2016-09-09 06:28] LABS: CARBON DIOXIDE 25 mmol/L (22-30); GFR AFRICAN-AMERICAN > 60
[2016-09-09 06:29] LABS: ALB/GLOB RATIO 0.8 (1.0-2.1); ALKALINE PHOSPHATASE 94 U/L (38-126); ALT/SGPT 15 U/L (21-72); AST/SGOT 14 U/L (17-59); BILIRUBIN,TOTAL 0.5 mg/dL (0.2-1.3); BLOOD UREA NITROGEN 12 mg/dL (9-20); GLUCOSE,RANDOM 142 mg/dL (75-110); TOTAL PROTEIN 6.7 g/dL (6.3-8.3)
[2016-09-09 06:30] LABS: CALCIUM 8.4 mg/dl (8.6-10.4)
[2016-09-09 06:32] LABS: INR 1.2
[2016-09-09] MEDS: (Novolin R) Insulin Human Regular 100 units/ml vial SC SCH ×4 (08:05→22:43)
[2016-09-09 08:09] LABS: EOSINOPHIL 4 % (0-4); NEUTROPHIL 16 % (50-75); TOTAL CELLS COUNTED 100
[2016-09-09] MEDS: Ciprofloxacin 400mg/200ml D5W 200 ML IVPB SCH ×3 (09:05→22:38)
[2016-09-09] MEDS: Ranolazine 500 mg Extended Release Tablets PO SCH ×2 (10:23→17:22)
--- NOTE | 2016-09-09 12:16 | CP.PCM.PN ---
Subjective - Date & Time of Evaluation Date of Evaluation: 09/09/16 Time of Evaluation: 12:15 - Subjective Subjective: 71 y/o male with RLE ulceration of anteromedial tibia with underlying osteomyelitis. Patient seen at bedside for right ankle ulceration. Patient denies any acute events overnight. He denies any pain in his extremity at this time. He States that he understands on saturday morning he will be going for a wound debridement with bone biopsy. Patient understands nothing to eat past midnight on saturday. Denies any f/c/n/v/sob at this time. Objective - Vital Signs/Intake and Output Vital Signs (last 24 hours): Temp Pulse Resp BP Pulse Ox 98.5 F 60 20 146/63 98 09/09/16 08:56 09/09/16 08:56 09/09/16 08:56 09/09/16 08:56 09/09/16 08:56 Intake and Output: 09/09/16 09/09/16 06:59 18:59 Intake Total 800 Output Total 1150 Balance -350 - Medications Medications: Current Medications Famotidine (Pepcid) 20 mg PO BID [facility] Last Admin: 09/09/16 10:23 Dose: 20 mg Folic Acid (Folic Acid) 1 mg PO DAILY [facility] Last Admin: 09/09/16 10:23 Dose: 1 mg Ciprofloxacin (Cipro 400mg/200ml Dsw) 200 mls @ 133 mls/hr IVPB Q12H [facility] Last Admin: 09/09/16 09:05 Dose: 133 mls/hr Insulin Glargine (Lantus) 10 unit SC [facility] Last Admin: 09/08/16 21:15 Dose: 10 units Insulin Human Regular (Novolin R) 0 unit SC [facility] PRN Reason: Protocol Last Admin: 09/09/16 08:05 Dose: Not Given Isosorbide Mononitrate (Imdur) 30 mg PO DAILY [facility] Last Admin: 09/09/16 10:23 Dose: 30 mg Metoprolol Succinate (Toprol Xl) 12.5 mg PO Q24H [facility] Last Admin: 09/08/16 17:26 Dose: 12.5 mg Ranolazine (Ranexa) 500 mg PO BID [facility] Last Admin: 09/09/16 10:23 Dose: 500 mg Rosuvastatin Calcium (Crestor) 20 mg PO [facility] Last Admin: 09/08/16 21:15 Dose: 20 mg Thiamine HCl (Vitamin B1 Tab) 100 mg PO DAILY [facility] Last Admin: 09/09/16 10:23 Dose: 100 mg - Labs Labs: 09/09/16 06:10 09/09/16 06:10 PT 13.3 SECONDS (9.7-12.2) H 09/09/16 06:10 INR 1.2 09/09/16 06:10 APTT 34 SECONDS (21-34) 09/04/16 06:48 - Constitutional Appears: Well, Non-toxic, No Acute Distress - Extremities Exam Additional comments: Vasc: DP non palp, PT 1/4, Temp gradient is wnl, warm around ulcration, Cap fill time diminished Derm: There is a roughly 4x3cm ulceration noted at the anteromedial aspect of the patients right ankle overlying the medial mall; there is sero-sanguinous drainage noted, no purulence noted, the wound does not probe to bone, no tendons exposed, no undermining noted, the woudn is roughly 70/30 granulofibrous ; mild surrounding erythema noted, mild edema noted Nuero: Grossly diminished Ortho: limited eval - Neurological Exam Neurological Exam: Alert, Awake, Oriented x3 - Psychiatric Exam Psychiatric exam: Normal Affect, Normal Mood Assessment and Plan - Assessment and Plan (Free Text) Assessment: 71 y/o male with right ankle ulceration with underlying tibial OM. Plan: Patient evaluated and chart reviewed discussed in detail with attending Dr. Ramirez labs and vitals reviewed; afebrile, WBC 2.0 Patient scheduled for OR on saturday morning for wound debridment with bone biopsy. Wound cleansed and redressed with DSD. NPO after midnight awaiting medical optimization Will continue to follow.
--- NOTE | 2016-09-09 15:52 | CP.PCM.PN ---
Subjective - Date & Time of Evaluation Date of Evaluation: 09/09/16 Time of Evaluation: 09:00 - Subjective Subjective: LESS PAIN LEFT LEG NO FEVER Objective - Vital Signs/Intake and Output Vital Signs (last 24 hours): Temp Pulse Resp BP Pulse Ox 98.5 F 60 20 146/63 98 09/09/16 08:56 09/09/16 08:56 09/09/16 08:56 09/09/16 08:56 09/09/16 08:56 Intake and Output: 09/09/16 09/09/16 06:59 18:59 Intake Total 800 Output Total 1150 Balance -350 - Medications Medications: Current Medications Famotidine (Pepcid) 20 mg PO BID [facility] Last Admin: 09/09/16 10:23 Dose: 20 mg Folic Acid (Folic Acid) 1 mg PO DAILY [facility] Last Admin: 09/09/16 10:23 Dose: 1 mg Ciprofloxacin (Cipro 400mg/200ml Dsw) 200 mls @ 133 mls/hr IVPB Q12H [facility] Last Admin: 09/09/16 09:05 Dose: 133 mls/hr Insulin Glargine (Lantus) 10 unit SC [facility] Last Admin: 09/08/16 21:15 Dose: 10 units Insulin Human Regular (Novolin R) 0 unit SC [facility] PRN Reason: Protocol Last Admin: 09/09/16 12:05 Dose: 4 unit Isosorbide Mononitrate (Imdur) 30 mg PO DAILY [facility] Last Admin: 09/09/16 10:23 Dose: 30 mg Metoprolol Succinate (Toprol Xl) 12.5 mg PO Q24H [facility] Last Admin: 09/08/16 17:26 Dose: 12.5 mg Ranolazine (Ranexa) 500 mg PO BID [facility] Last Admin: 09/09/16 10:23 Dose: 500 mg Rosuvastatin Calcium (Crestor) 20 mg PO HS [facility] Last Admin: 09/08/16 21:15 Dose: 20 mg Thiamine HCl (Vitamin B1 Tab) 100 mg PO DAILY [facility] Last Admin: 09/09/16 10:23 Dose: 100 mg - Labs Labs: 09/09/16 06:10 09/09/16 06:10 PT 13.3 SECONDS (9.7-12.2) H 09/09/16 06:10 INR 1.2 09/09/16 06:10 APTT 34 SECONDS (21-34) 09/04/16 06:48 - Constitutional Appears: Non-toxic, Chronically Ill - Head Exam Head Exam: NORMOCEPHALIC - Eye Exam Eye Exam: absent: Scleral icterus - ENT Exam ENT Exam: Mucous Membranes Dry - Neck Exam Neck Exam: absent: Lymphadenopathy - Respiratory Exam Respiratory Exam: Decreased Breath Sounds - Cardiovascular Exam Cardiovascular Exam: REGULAR RHYTHM - GI/Abdominal Exam GI & Abdominal Exam: Distended, Soft - Rectal Exam Rectal Exam: Deferred - Exam Exam: NORMAL INSPECTION Assessment and Plan - Assessment and Plan (Free Text) Plan: RENEW IV RX CONT WOUND CARE REPEAT C/S DR CORONA FOLLOW UP
[2016-09-09] MEDS: Metoprolol Succinate 12.5 mg XL PO SCH (17:21)
--- NOTE | 2016-09-09 19:20 | CP.PCM.PN ---
Subjective - Date & Time of Evaluation Date of Evaluation: 09/09/16 Time of Evaluation: 09:25 - Subjective Subjective: feels better no fever no complain Objective - Vital Signs/Intake and Output Vital Signs (last 24 hours): Temp Pulse Resp BP Pulse Ox 97.5 F L 69 20 136/66 99 09/09/16 15:58 09/09/16 15:58 09/09/16 15:58 09/09/16 15:58 09/09/16 15:58 Intake and Output: 09/09/16 09/10/16 18:59 06:59 Output Total 400 Balance -400 - Medications Medications: Current Medications Famotidine (Pepcid) 20 mg PO BID [facility] Last Admin: 09/09/16 17:20 Dose: 20 mg Folic Acid (Folic Acid) 1 mg PO DAILY [facility] Last Admin: 09/09/16 10:23 Dose: 1 mg Ciprofloxacin (Cipro 400mg/200ml Dsw) 200 mls @ 133 mls/hr IVPB Q12H [facility] Last Admin: 09/09/16 09:05 Dose: 133 mls/hr Insulin Glargine (Lantus) 10 unit SC [facility] Last Admin: 09/08/16 21:15 Dose: 10 units Insulin Human Regular (Novolin R) 0 unit SC [facility] PRN Reason: Protocol Last Admin: 09/09/16 17:28 Dose: 6 unit Isosorbide Mononitrate (Imdur) 30 mg PO DAILY [facility] Last Admin: 09/09/16 10:23 Dose: 30 mg Metoprolol Succinate (Toprol Xl) 12.5 mg PO Q24H [facility] Last Admin: 09/09/16 17:21 Dose: 12.5 mg Ranolazine (Ranexa) 500 mg PO BID [facility] Last Admin: 09/09/16 17:22 Dose: 500 mg Rosuvastatin Calcium (Crestor) 20 mg PO HS [facility] Last Admin: 09/08/16 21:15 Dose: 20 mg Thiamine HCl (Vitamin B1 Tab) 100 mg PO DAILY [facility] Last Admin: 09/09/16 10:23 Dose: 100 mg - Labs Labs: 09/09/16 06:10 09/09/16 06:10 PT 13.3 SECONDS (9.7-12.2) H 09/09/16 06:10 INR 1.2 09/09/16 06:10 APTT 34 SECONDS (21-34) 09/04/16 06:48 Assessment and Plan - Assessment and Plan (Free Text) Plan: awaiting clerne from dr. moya for possible surg on his foot no chest pain or sob
--- NOTE | 2016-09-09 20:04 | CP.PCM.PN ---
Subjective - Date & Time of Evaluation Date of Evaluation: 09/09/16 Time of Evaluation: 08:30 - Subjective Subjective: Pt no cp,tolerating po Objective - Vital Signs/Intake and Output Vital Signs (last 24 hours): Temp Pulse Resp BP Pulse Ox 97.5 F L 69 20 136/66 99 09/09/16 15:58 09/09/16 15:58 09/09/16 15:58 09/09/16 15:58 09/09/16 15:58 Intake and Output: 09/09/16 09/10/16 18:59 06:59 Output Total 400 200 Balance -400 -200 - Medications Medications: Current Medications Famotidine (Pepcid) 20 mg PO BID [facility] Last Admin: 09/09/16 17:20 Dose: 20 mg Folic Acid (Folic Acid) 1 mg PO DAILY [facility] Last Admin: 09/09/16 10:23 Dose: 1 mg Ciprofloxacin (Cipro 400mg/200ml Dsw) 200 mls @ 133 mls/hr IVPB Q12H [facility] Last Admin: 09/09/16 09:05 Dose: 133 mls/hr Insulin Glargine (Lantus) 10 unit SC [facility] Last Admin: 09/08/16 21:15 Dose: 10 units Insulin Human Regular (Novolin R) 0 unit SC [facility] PRN Reason: Protocol Last Admin: 09/09/16 17:28 Dose: 6 unit Isosorbide Mononitrate (Imdur) 30 mg PO DAILY [facility] Last Admin: 09/09/16 10:23 Dose: 30 mg Metoprolol Succinate (Toprol Xl) 12.5 mg PO Q24H [facility] Last Admin: 09/09/16 17:21 Dose: 12.5 mg Ranolazine (Ranexa) 500 mg PO BID [facility] Last Admin: 09/09/16 17:22 Dose: 500 mg Rosuvastatin Calcium (Crestor) 20 mg PO HS [facility] Last Admin: 09/08/16 21:15 Dose: 20 mg Thiamine HCl (Vitamin B1 Tab) 100 mg PO DAILY [facility] Last Admin: 09/09/16 10:23 Dose: 100 mg - Labs Labs: 09/09/16 06:10 09/09/16 06:10 PT 13.3 SECONDS (9.7-12.2) H 09/09/16 06:10 INR 1.2 09/09/16 06:10 APTT 34 SECONDS (21-34) 09/04/16 06:48 - Constitutional Appears: Well, No Acute Distress - Head Exam Head Exam: ATRAUMATIC, NORMAL INSPECTION, NORMOCEPHALIC - Eye Exam Eye Exam: Normal appearance - ENT Exam ENT Exam: Mucous Membranes Moist - Respiratory Exam Respiratory Exam: Clear to Ausculation Bilateral - Cardiovascular Exam Cardiovascular Exam: REGULAR RHYTHM - GI/Abdominal Exam GI & Abdominal Exam: Normal Bowel Sounds - Exam External exam: NORMAL EXTERNAL EXAM - Extremities Exam Additional comments: dressing in place - Neurological Exam Neurological Exam: Alert - Skin Skin Exam: Warm Assessment and Plan (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 Off antiplatelet for GI issues. Afetr surgery will address resuming renexa and asa if medically safe. Benefits outweigh risks fir this surgery and may proceed to eval for osteo as well NL ef Status: Acute (2) PAD (peripheral artery disease) Status: Acute (3) CAD (coronary artery disease) Status: Chronic
--- NOTE | 2016-09-09 21:57 | CP.PCM.PN ---
Subjective - Date & Time of Evaluation Date of Evaluation: 09/09/16 Time of Evaluation: 20:00 - Subjective Subjective: No complaints Objective - Vital Signs/Intake and Output Vital Signs (last 24 hours): Temp Pulse Resp BP Pulse Ox 97.5 F L 69 20 136/66 99 09/09/16 15:58 09/09/16 15:58 09/09/16 15:58 09/09/16 15:58 09/09/16 15:58 Intake and Output: 09/09/16 09/10/16 18:59 06:59 Output Total 400 400 Balance -400 -400 - Medications Medications: Current Medications Famotidine (Pepcid) 20 mg PO BID [facility] Last Admin: 09/09/16 17:20 Dose: 20 mg Folic Acid (Folic Acid) 1 mg PO DAILY [facility] Last Admin: 09/09/16 10:23 Dose: 1 mg Ciprofloxacin (Cipro 400mg/200ml Dsw) 200 mls @ 133 mls/hr IVPB Q12H [facility] Last Admin: 09/09/16 09:05 Dose: 133 mls/hr Insulin Glargine (Lantus) 10 unit SC [facility] Last Admin: 09/08/16 21:15 Dose: 10 units Insulin Human Regular (Novolin R) 0 unit SC [facility] PRN Reason: Protocol Last Admin: 09/09/16 17:28 Dose: 6 unit Isosorbide Mononitrate (Imdur) 30 mg PO DAILY [facility] Last Admin: 09/09/16 10:23 Dose: 30 mg Metoprolol Succinate (Toprol Xl) 12.5 mg PO Q24H [facility] Last Admin: 09/09/16 17:21 Dose: 12.5 mg Ranolazine (Ranexa) 500 mg PO BID [facility] Last Admin: 09/09/16 17:22 Dose: 500 mg Rosuvastatin Calcium (Crestor) 20 mg PO HS [facility] Last Admin: 09/08/16 21:15 Dose: 20 mg Thiamine HCl (Vitamin B1 Tab) 100 mg PO DAILY [facility] Last Admin: 09/09/16 10:23 Dose: 100 mg - Labs Labs: 09/09/16 06:10 09/09/16 06:10 PT 13.3 SECONDS (9.7-12.2) H 09/09/16 06:10 INR 1.2 09/09/16 06:10 APTT 34 SECONDS (21-34) 09/04/16 06:48 - Head Exam Head Exam: ATRAUMATIC - Eye Exam Eye Exam: Normal appearance - ENT Exam ENT Exam: Mucous Membranes Dry - Respiratory Exam Respiratory Exam: NORMAL BREATHING PATTERN - Cardiovascular Exam Cardiovascular Exam: +S1, +S2 - GI/Abdominal Exam GI & Abdominal Exam: Normal Bowel Sounds Assessment and Plan (1) Pancytopenia Assessment & Plan: normal iron, b12, folate stores elevated ferritin consistent with chronic disease needs bone marrow evaluation Status: Acute
[2016-09-09] MEDS: (Lantus) Insulin Glargine, Recombinant SC SCH (22:40)
[2016-09-10] MEDS: Dextrose 5%/0.45% NS 1,000 ML IV SCH ×2 (05:54→21:53)
[2016-09-10] MEDS: (Novolin R) Insulin Human Regular 100 units/ml vial SC SCH ×4 (06:42→22:00)
[2016-09-10 06:43] LABS: CHLORIDE 104 mmol/L (98-107); POTASSIUM 3.9 mmol/L (3.6-5.2); SODIUM 137 mmol/L (132-148)
[2016-09-10 06:45] LABS: ALB/GLOB RATIO 0.8 (1.0-2.1); ALKALINE PHOSPHATASE 100 U/L (38-126); AST/SGOT 14 U/L (17-59); BASO % 0.4 % (0.0-2.0); BILIRUBIN,TOTAL 0.6 mg/dL (0.2-1.3); BLOOD UREA NITROGEN 15 mg/dL (9-20); CARBON DIOXIDE 25 mmol/L (22-30); EOS # 0.1 K/uL (0.0-0.7); EOS % 4.4 % (0.0-4.0); GFR AFRICAN-AMERICAN > 60; HEMATOCRIT 24.8 % (35.0-51.0); LYMPH # 1.1 K/uL (1.0-4.3); LYMPH % 50.8 % (20.0-40.0); MEAN CORPUSCULAR HEMOGLOBIN 25.7 pg (27.0-31.0); MEAN CORPUSCULAR HGB CONC 33.4 g/dL (33.0-37.0); MEAN PLATELET VOLUME 9.7 fL (7.2-11.7); MONO # 0.6 K/uL (0.0-0.8); MONO % 30.3 % (0.0-10.0); NRBC % 0.1 % (0.0-2.0); PLATELET COUNT 116 K/uL (130-400); RED CELL DISTRIBUTION WIDTH 20.5 % (11.5-14.5); TOTAL PROTEIN 6.7 g/dL (6.3-8.3); WHITE BLOOD COUNT 2.1 K/uL (4.8-10.8)
[2016-09-10 06:46] LABS: ALT/SGPT 15 U/L (21-72); CALCIUM 8.1 mg/dl (8.6-10.4); GLUCOSE,RANDOM 165 mg/dL (75-110); MAGNESIUM 1.8 mg/dL (1.6-2.3); PHOSPHOROUS 2.9 mg/dL (2.5-4.5)
[2016-09-10] MEDS ORDERED: Midazolam 2 MG/2 ML VIAL ONE (07:51)
[2016-09-10] MEDS ORDERED: Propofol 10 mg/ml Inj (20 ML) ONE (07:52)
[2016-09-10] MEDS ORDERED: Etomidate 20 mg/10ml Inj IV ONE (08:07)
[2016-09-10] MEDS: Ciprofloxacin 400mg/200ml D5W 200 ML IVPB SCH ×2 (08:10→21:52)
[2016-09-10] MEDS ORDERED: Bupivacaine HCl 0.25% PF (10 ml) Inj ONE (08:16)
[2016-09-10] MEDS ORDERED: Lidocaine 1% Inj (20ml) ONE (08:16)
[2016-09-10] MEDS ORDERED: Phenylephrine 10 mg/ml Inj ONE (08:42)
[2016-09-10] MEDS ORDERED: ePHEDrine 50 mg/ml Inj ONE (08:42)
[2016-09-10] MEDS ORDERED: HYDROmorphone 0.5 mg/0.5 ml ISec IVP PRN (08:43)
--- NOTE | 2016-09-10 09:08 | PCM.SURG1 ---
Surgeon's Initial Post Op Note - Surgeon's Notes Surgeon: Dr Tafoya Drilling Field Professional: None Type of Anesthesia: IV Sedation, Local Anesthesia Administered By: Saúl Bowman MD Pre-Operative Diagnosis: Venous stasis ulcer right with OM of ankle right Operative Findings: Venous stasis ulcer and OM ankle right Post-Operative Diagnosis: Venous stasis ulcer with om right ankle Operation Performed: Debridement of ulcer and bone biopsy and culture right ankle Specimen/Specimens Removed: Bone biopsy and culture right ankle Estimated Blood Loss: EBL {In ML}: 5 Blood Products Given: N/A Drains Used: No Drains Post-Op Condition: Good Date of Surgery/Procedure: 09/10/16 Time of Surgery/Procedure: 08:00
[2016-09-10 09:28] LABS: EOSINOPHIL 5 % (0-4); NEUTROPHIL 11 % (50-75); TOTAL CELLS COUNTED 100
[2016-09-10] MEDS: Ranolazine 500 mg Extended Release Tablets PO SCH ×2 (11:01→18:43)
[2016-09-10 11:49] LABS: BASO % 0.8 % (0.0-2.0); EOS # 0.1 K/uL (0.0-0.7); HEMATOCRIT 25.7 % (35.0-51.0); LYMPH % 54.5 % (20.0-40.0); MEAN CELL VOLUME 77.3 fL (80.0-94.0); MEAN CORPUSCULAR HEMOGLOBIN 25.6 pg (27.0-31.0); MEAN CORPUSCULAR HGB CONC 33.1 g/dL (33.0-37.0); MEAN PLATELET VOLUME 9.1 fL (7.2-11.7); MONO # 0.5 K/uL (0.0-0.8); MONO % 25.4 % (0.0-10.0); NRBC % 0.1 % (0.0-2.0); PLATELET COUNT 118 K/uL (130-400); RED CELL DISTRIBUTION WIDTH 20.9 % (11.5-14.5)
[2016-09-10 12:01] LABS: WHITE BLOOD COUNT 1.9 K/uL (4.8-10.8)
[2016-09-10 13:44] LABS: EOSINOPHIL 4 % (0-4); NEUTROPHIL 8 % (50-75); TOTAL CELLS COUNTED 50
--- NOTE | 2016-09-10 14:33 | CP.PCM.PN ---
Subjective - Date & Time of Evaluation Date of Evaluation: 09/10/16 Time of Evaluation: 12:30 - Subjective Subjective: PGY2 Medicine Note - Dr. Tim Ramírez's service: Patient seen and examined at bedside this AM. Patient has no complaints at this time. Objective - Vital Signs/Intake and Output Vital Signs (last 24 hours): Temp Pulse Resp BP Pulse Ox 97.5 F L 56 L 98 H 151/66 H 99 09/10/16 10:55 09/10/16 10:55 09/10/16 10:55 09/10/16 10:55 09/10/16 09:55 Intake and Output: 09/10/16 09/10/16 06:59 18:59 Intake Total 1250 500 Output Total 2125 Balance -875 500 - Medications Medications: Current Medications Famotidine (Pepcid) 20 mg PO BID [facility] Last Admin: 09/10/16 11:01 Dose: 20 mg Folic Acid (Folic Acid) 1 mg PO DAILY [facility] Last Admin: 09/10/16 11:01 Dose: 1 mg Hydromorphone HCl (Dilaudid) 0.5 mg IVP Q15M PRN PRN Reason: Pain, severe (8-10) Ciprofloxacin (Cipro 400mg/200ml Dsw) 200 mls @ 133 mls/hr IVPB Q12H [facility] Last Admin: 09/10/16 08:10 Dose: 200 mls Dextrose/Sodium Chloride (Dextrose 5%/0.45% Ns 1000 Ml) 1,000 mls @ 75 mls/hr IV .[id number] [facility] Last Admin: 09/10/16 05:54 Dose: 75 mls/hr Insulin Glargine (Lantus) 10 unit SC HS [facility] Last Admin: 09/09/16 22:40 Dose: 10 units Insulin Human Regular (Novolin R) 0 unit SC ACHS [facility] PRN Reason: Protocol Last Admin: 09/10/16 12:05 Dose: 4 unit Isosorbide Mononitrate (Imdur) 30 mg PO DAILY [facility] Last Admin: 09/10/16 11:01 Dose: 30 mg Metoprolol Succinate (Toprol Xl) 12.5 mg PO Q24H [facility] Last Admin: 09/09/16 17:21 Dose: 12.5 mg Ranolazine (Ranexa) 500 mg PO BID [facility] Last Admin: 09/10/16 11:01 Dose: 500 mg Rosuvastatin Calcium (Crestor) 20 mg PO HS [facility] Last Admin: 09/09/16 22:38 Dose: 20 mg Thiamine HCl (Vitamin B1 Tab) 100 mg PO DAILY [facility] Last Admin: 09/10/16 11:02 Dose: 100 mg - Labs Labs: 09/10/16 11:40 09/10/16 06:22 PT 13.3 SECONDS (9.7-12.2) H 09/09/16 06:10 INR 1.2 09/09/16 06:10 APTT 34 SECONDS (21-34) 09/04/16 06:48 - Constitutional Appears: Non-toxic, No Acute Distress - Head Exam Head Exam: NORMAL INSPECTION - Eye Exam Eye Exam: EOMI - ENT Exam ENT Exam: Mucous Membranes Moist - Respiratory Exam Respiratory Exam: Clear to Ausculation Bilateral, NORMAL BREATHING PATTERN. absent: Rhonchi, Wheezes - Cardiovascular Exam Cardiovascular Exam: REGULAR RHYTHM, +S1, +S2 - GI/Abdominal Exam GI & Abdominal Exam: Soft, Normal Bowel Sounds. absent: Tenderness - Extremities Exam Additional comments: right foot wrapped - Neurological Exam Neurological Exam: Alert, Oriented x3 Assessment and Plan - Assessment and Plan (Free Text) Assessment: Infected Diabetic Ulcer of right medial malleolus F/U bone biopsy results Follow up physical therapy eval and recs ID consulted - Dr. Bishop - help appreciated Surgery consulted- Dr. Lugo - help appreciated. s/p OR- aortofemoral angiogram via lefrt groin, selective catherization of right side, balloon angioplasty of peroneal artery. Blood cultures negative after 5 days 08/28/16 Wound culture - positive for proteus mirabilis, pseudomonas aeruginosa and corynebacterium species 08/30/16 MRI ankle - positive for osteomyelsitis. prominent ulceration seen within medial soft tissues at the level of the left ankle. Marked signal abnormality seen within medial malleolus and distal tibia at the ankle joint space with heterogeneously increased STIR signal with patchy decreased T1 signal concerning for an acute osteomyelitis. Superimposed osteonecrosis and or avascular necrosis cannot entirely be excluded. Some patchy reactive signal with increased STIR and mild patchy decreased T1 signal noted within the anteromedial talus which may represent some developing acute osteomyelsitis. Mild tenosynovitis of the anterior tibial tensionsheath and posterior tendon sheath. Cipro 400mg IVPB Q12H started 08/31/16 Pancytopenia Heme/Onc consult - Dr. Knutson - help appreciated likely anemia of chronic disease will need bone marrow evaluation per Dr. Knutson's note Neutropenia Neutrophils 0.3 Per nursing, the hospital no longer does anything for neutropenic precautions bedsides washing hands Placed call to RN in charge of ID at the hospital, awaiting call back DM RISS Lantus 10U SC HS HTN Imdur 30mg PO daily Toprol XL 12.5mg PO daily Hyperlipidemia Crestor 20mg PO HS Anemia Ferrlecit 125mg IVPB daily Prophylaxis Protonix 40mg PO discontinued due to decreased platelets, started pepcid 20mg PO BID SCDs contraindicated secondary to infection All management per Dr. Tim Ramírez
--- NOTE | 2016-09-10 18:37 | CP.PCM.PN ---
Subjective - Date & Time of Evaluation Date of Evaluation: 09/10/16 Time of Evaluation: 11:00 - Subjective Subjective: clinically same Objective - Vital Signs/Intake and Output Vital Signs (last 24 hours): Temp Pulse Resp BP Pulse Ox 98.2 F 62 20 132/50 L 98 09/10/16 16:19 09/10/16 16:19 09/10/16 16:19 09/10/16 16:19 09/10/16 16:19 Intake and Output: 09/10/16 09/10/16 06:59 18:59 Intake Total 1250 2270 Output Total 2125 800 Balance -875 1470 - Medications Medications: Current Medications Famotidine (Pepcid) 20 mg PO BID [facility] Last Admin: 09/10/16 11:01 Dose: 20 mg Folic Acid (Folic Acid) 1 mg PO DAILY [facility] Last Admin: 09/10/16 11:01 Dose: 1 mg Hydromorphone HCl (Dilaudid) 0.5 mg IVP Q15M PRN PRN Reason: Pain, severe (8-10) Ciprofloxacin (Cipro 400mg/200ml Dsw) 200 mls @ 133 mls/hr IVPB Q12H [facility] Last Admin: 09/10/16 08:10 Dose: 200 mls Dextrose/Sodium Chloride (Dextrose 5%/0.45% Ns 1000 Ml) 1,000 mls @ 75 mls/hr IV .[id number] [facility] Last Admin: 09/10/16 05:54 Dose: 75 mls/hr Insulin Glargine (Lantus) 10 unit SC [facility] Last Admin: 09/09/16 22:40 Dose: 10 units Insulin Human Regular (Novolin R) 0 unit SC [facility] PRN Reason: Protocol Last Admin: 09/10/16 12:05 Dose: 4 unit Isosorbide Mononitrate (Imdur) 30 mg PO DAILY [facility] Last Admin: 09/10/16 11:01 Dose: 30 mg Metoprolol Succinate (Toprol Xl) 12.5 mg PO Q24H [facility] Last Admin: 09/09/16 17:21 Dose: 12.5 mg Ranolazine (Ranexa) 500 mg PO BID [facility] Last Admin: 09/10/16 11:01 Dose: 500 mg Rosuvastatin Calcium (Crestor) 20 mg PO [facility] Last Admin: 09/09/16 22:38 Dose: 20 mg Thiamine HCl (Vitamin B1 Tab) 100 mg PO DAILY [facility] Last Admin: 09/10/16 11:02 Dose: 100 mg - Labs Labs: 09/10/16 11:40 09/10/16 06:22 PT 13.3 SECONDS (9.7-12.2) H 09/09/16 06:10 INR 1.2 09/09/16 06:10 APTT 34 SECONDS (21-34) 09/04/16 06:48 - Constitutional Appears: Well - Head Exam Head Exam: ATRAUMATIC, NORMAL INSPECTION, NORMOCEPHALIC - Eye Exam Eye Exam: EOMI, Normal appearance, PERRL Pupil Exam: NORMAL ACCOMODATION, PERRL - ENT Exam ENT Exam: Mucous Membranes Moist, Normal Exam - Neck Exam Neck Exam: Full ROM, Normal Inspection. absent: Lymphadenopathy - Respiratory Exam Respiratory Exam: Decreased Breath Sounds - Cardiovascular Exam Cardiovascular Exam: REGULAR RHYTHM, +S1, +S2 - GI/Abdominal Exam GI & Abdominal Exam: Soft, Diminished Bowel Sounds - Rectal Exam Rectal Exam: Deferred Assessment and Plan - Assessment and Plan (Free Text) Plan: DR daisy sawant. wound care conit. Iv antibiotics f/u bone biopsy result
[2016-09-10] MEDS: Metoprolol Succinate 12.5 mg XL PO SCH (18:43)
[2016-09-10] MEDS: (Lantus) Insulin Glargine, Recombinant SC SCH (21:54)
--- NOTE | 2016-09-10 23:28 | CARD ---
APPROVED REPORT EKG Measurement Heart [id number] <Conclusion> Normal sinus rhythm Septal infarct, age undetermined Abnormal ECG
[2016-09-11 07:05] LABS: CHLORIDE 102 mmol/L (98-107); POTASSIUM 3.9 mmol/L (3.6-5.2); SODIUM 136 mmol/L (132-148)
[2016-09-11 07:07] LABS: BILIRUBIN,TOTAL 0.6 mg/dL (0.2-1.3); GFR AFRICAN-AMERICAN > 60
[2016-09-11 07:08] LABS: ALB/GLOB RATIO 0.8 (1.0-2.1); ALKALINE PHOSPHATASE 112 U/L (38-126); ALT/SGPT 16 U/L (21-72); AST/SGOT 14 U/L (17-59); BLOOD UREA NITROGEN 16 mg/dL (9-20); CALCIUM 8.2 mg/dl (8.6-10.4); CARBON DIOXIDE 25 mmol/L (22-30); GLUCOSE,RANDOM 151 mg/dL (75-110)
[2016-09-11 07:33] LABS: BASO % 0.3 % (0.0-2.0); EOS # 0.1 K/uL (0.0-0.7); EOS % 3.9 % (0.0-4.0); HEMATOCRIT 24.9 % (35.0-51.0); LYMPH # 0.9 K/uL (1.0-4.3); LYMPH % 42.8 % (20.0-40.0); MEAN CELL VOLUME 76.4 fL (80.0-94.0); MEAN PLATELET VOLUME 9.6 fL (7.2-11.7); MONO # 0.7 K/uL (0.0-0.8); MONO % 35.9 % (0.0-10.0); PLATELET COUNT 126 K/uL (130-400); RED CELL DISTRIBUTION WIDTH 20.9 % (11.5-14.5); WHITE BLOOD COUNT 2.1 K/uL (4.8-10.8)
[2016-09-11] MEDS: (Novolin R) Insulin Human Regular 100 units/ml vial SC SCH ×4 (07:44→22:46)
[2016-09-11] MEDS: Ciprofloxacin 400mg/200ml D5W 200 ML IVPB SCH ×2 (07:45→20:22)
[2016-09-11] MEDS: Ranolazine 500 mg Extended Release Tablets PO SCH ×2 (09:02→18:54)
[2016-09-11 09:15] LABS: NEUTROPHIL 23 % (50-75); TOTAL CELLS COUNTED 100
--- NOTE | 2016-09-11 10:07 | CP.PCM.PN ---
Subjective - Date & Time of Evaluation Date of Evaluation: 09/11/16 Time of Evaluation: 10:05 - Subjective Subjective: Patient seen and evaluated at bedside, NAD. Patient is resting comfortably, reports some pain to the right lower extremity. Surgical bandage is clean dry and intact. Patient denies n/v/f/c/sob at this time. Objective - Vital Signs/Intake and Output Vital Signs (last 24 hours): Temp Pulse Resp BP Pulse Ox 97.3 F L 63 20 160/56 H 98 09/11/16 07:52 09/11/16 07:52 09/11/16 07:52 09/11/16 07:52 09/11/16 07:52 Intake and Output: 09/11/16 09/11/16 06:59 18:59 Intake Total 1200 Output Total 1200 Balance 0 - Medications Medications: Current Medications Famotidine (Pepcid) 20 mg PO BID [facility] Last Admin: 09/11/16 09:01 Dose: 20 mg Folic Acid (Folic Acid) 1 mg PO DAILY [facility] Last Admin: 09/11/16 09:01 Dose: 1 mg Hydromorphone HCl (Dilaudid) 0.5 mg IVP Q15M PRN PRN Reason: Pain, severe (8-10) Ciprofloxacin (Cipro 400mg/200ml Dsw) 200 mls @ 133 mls/hr IVPB Q12H [facility] Last Admin: 09/11/16 07:45 Dose: 133 mls/hr Dextrose/Sodium Chloride (Dextrose 5%/0.45% Ns 1000 Ml) 1,000 mls @ 75 mls/hr IV .[id number] [facility] Last Admin: 09/10/16 21:53 Dose: 75 mls/hr Insulin Glargine (Lantus) 10 unit SC HS [facility] Last Admin: 09/10/16 21:54 Dose: 10 units Insulin Human Regular (Novolin R) 0 unit SC ACHS [facility] PRN Reason: Protocol Last Admin: 09/11/16 07:44 Dose: 4 unit Isosorbide Mononitrate (Imdur) 30 mg PO DAILY [facility] Last Admin: 09/11/16 09:01 Dose: 30 mg Metoprolol Succinate (Toprol Xl) 12.5 mg PO Q24H [facility] Last Admin: 09/10/16 18:43 Dose: 12.5 mg Ranolazine (Ranexa) 500 mg PO BID [facility] Last Admin: 09/11/16 09:02 Dose: 500 mg Rosuvastatin Calcium (Crestor) 20 mg PO HS [facility] Last Admin: 09/10/16 21:54 Dose: 20 mg Thiamine HCl (Vitamin B1 Tab) 100 mg PO DAILY [facility] Last Admin: 09/11/16 09:01 Dose: 100 mg - Labs Labs: 09/11/16 06:28 09/11/16 06:28 PT 13.3 SECONDS (9.7-12.2) H 09/09/16 06:10 INR 1.2 09/09/16 06:10 APTT 34 SECONDS (21-34) 09/04/16 06:48 - Constitutional Appears: Well, Non-toxic, No Acute Distress - Neurological Exam Neurological Exam: Oriented x3 - Psychiatric Exam Psychiatric exam: Normal Affect, Normal Mood - Additional Findings Additional findings: DERMATOLOGIC: Right anterior tibia large granular ulceration, sanguinous drainage, no purulence, does not probe deep. There is surrounding hyperpigmentation, no gross erythema. Remaining skin intact. VASCULAR : DP/PT pulses 1/4, MANAGER KNOWLEDGE<3 seconds, skin temperature wnl at this time. NEUROLOGIC: Gross sensation intact ORTHOPEDIC: Pain on palpation to the right lower extremity Assessment and Plan - Assessment and Plan (Free Text) Assessment: 71 year old male POD#1 for right leg wound debridement and tibial bone biopsy. Plan: Patient seen and evaluated, d/w attending Dr. Ramirez. Patients dressing changed with xeroform, DSD, ABD, kerlix. Patient stable to DC per podiatry, will receive PICC line and IV abx per ID Patient will [facility] to [facility] Podiatry will continue to follow while in house
--- NOTE | 2016-09-11 10:19 | CP.PCM.PN ---
Subjective - Date & Time of Evaluation Date of Evaluation: 09/11/16 Time of Evaluation: 09:25 - Subjective Subjective: PGY2 Medicine Note - Dr. Tim Ramírez's service: Patient seen and examined at bedside this AM. Patient has no complaints at this time except a sore right foot. Objective - Vital Signs/Intake and Output Vital Signs (last 24 hours): Temp Pulse Resp BP Pulse Ox 97.3 F L 63 20 160/56 H 98 09/11/16 07:52 09/11/16 07:52 09/11/16 07:52 09/11/16 07:52 09/11/16 07:52 Intake and Output: 09/11/16 09/11/16 06:59 18:59 Intake Total 1200 Output Total 1200 Balance 0 - Medications Medications: Current Medications Famotidine (Pepcid) 20 mg PO BID [facility] Last Admin: 09/11/16 09:01 Dose: 20 mg Folic Acid (Folic Acid) 1 mg PO DAILY [facility] Last Admin: 09/11/16 09:01 Dose: 1 mg Hydromorphone HCl (Dilaudid) 0.5 mg IVP Q15M PRN PRN Reason: Pain, severe (8-10) Ciprofloxacin (Cipro 400mg/200ml Dsw) 200 mls @ 133 mls/hr IVPB Q12H [facility] Last Admin: 09/11/16 07:45 Dose: 133 mls/hr Dextrose/Sodium Chloride (Dextrose 5%/0.45% Ns 1000 Ml) 1,000 mls @ 75 mls/hr IV .[id number] [facility] Last Admin: 09/10/16 21:53 Dose: 75 mls/hr Insulin Glargine (Lantus) 10 unit SC HS [facility] Last Admin: 09/10/16 21:54 Dose: 10 units Insulin Human Regular (Novolin R) 0 unit SC ACHS [facility] PRN Reason: Protocol Last Admin: 09/11/16 07:44 Dose: 4 unit Isosorbide Mononitrate (Imdur) 30 mg PO DAILY [facility] Last Admin: 09/11/16 09:01 Dose: 30 mg Metoprolol Succinate (Toprol Xl) 12.5 mg PO Q24H [facility] Last Admin: 09/10/16 18:43 Dose: 12.5 mg Ranolazine (Ranexa) 500 mg PO BID [facility] Last Admin: 09/11/16 09:02 Dose: 500 mg Rosuvastatin Calcium (Crestor) 20 mg PO HS [facility] Last Admin: 09/10/16 21:54 Dose: 20 mg Thiamine HCl (Vitamin B1 Tab) 100 mg PO DAILY [facility] Last Admin: 09/11/16 09:01 Dose: 100 mg - Labs Labs: 09/11/16 06:28 09/11/16 06:28 PT 13.3 SECONDS (9.7-12.2) H 09/09/16 06:10 INR 1.2 09/09/16 06:10 APTT 34 SECONDS (21-34) 09/04/16 06:48 - Constitutional Appears: Non-toxic, No Acute Distress - Head Exam Head Exam: NORMAL INSPECTION - Eye Exam Eye Exam: EOMI - ENT Exam ENT Exam: Mucous Membranes Moist - Respiratory Exam Respiratory Exam: Clear to Ausculation Bilateral, NORMAL BREATHING PATTERN. absent: Rales, Rhonchi, Wheezes - Cardiovascular Exam Cardiovascular Exam: REGULAR RHYTHM, +S1, +S2. absent: Gallop, Rubs, Murmur - GI/Abdominal Exam GI & Abdominal Exam: Soft, Normal Bowel Sounds. 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 Ramirez - help appreciated - s/p bone biopsy 09/10/16 ID consulted - Dr. Bishop - help appreciated Surgery consulted- Dr. Lugo - help appreciated. s/p OR- aortofemoral angiogram via left groin, selective catherization of right side, balloon angioplasty of peroneal artery. Blood cultures negative after 5 days 08/28/16 Wound culture - positive for proteus mirabilis, pseudomonas aeruginosa and corynebacterium species 08/30/16 MRI ankle - positive for osteomyelsitis. prominent ulceration seen within medial soft tissues at the level of the left ankle. Marked signal abnormality seen within medial malleolus and distal tibia at the ankle joint space with heterogeneously increased STIR signal with patchy decreased T1 signal concerning for an acute osteomyelitis. Superimposed osteonecrosis and or avascular necrosis cannot entirely be excluded. Some patchy reactive signal with increased STIR and mild patchy decreased T1 signal noted within the anteromedial talus which may represent some developing acute osteomyelsitis. Mild tenosynovitis of the anterior tibial tensionsheath and posterior tendon sheath. Cipro 400mg IVPB Q12H started 08/31/16 Pancytopenia Heme/Onc consult - Dr. Knutson - help appreciated likely anemia of chronic disease will need bone marrow evaluation per Dr. Knutson's note Neutropenia Neutrophils 0.3 Per nursing, the hospital no longer does anything for neutropenic precautions bedsides washing hands Placed call to RN in charge of ID at the hospital, awaiting call back DM RISS Lantus 10U SC HS HTN Imdur 30mg PO daily Toprol XL 12.5mg PO daily Hyperlipidemia Crestor 20mg PO HS Anemia Ferrlecit 125mg IVPB daily Prophylaxis Protonix 40mg PO discontinued due to decreased platelets, started pepcid 20mg PO BID SCDs contraindicated secondary to infection All management per Dr. Tim Ramírez
--- NOTE | 2016-09-11 16:43 | CP.PCM.PN ---
Subjective - Date & Time of Evaluation Date of Evaluation: 09/11/16 Time of Evaluation: 10:20 - Subjective Subjective: clinically same Objective - Vital Signs/Intake and Output Vital Signs (last 24 hours): Temp Pulse Resp BP Pulse Ox 97.8 F 70 20 152/65 H 98 09/11/16 15:23 09/11/16 15:23 09/11/16 15:23 09/11/16 15:23 09/11/16 15:23 Intake and Output: 09/11/16 09/11/16 06:59 18:59 Intake Total 1200 650 Output Total 1200 Balance 0 650 - Medications Medications: Current Medications Famotidine (Pepcid) 20 mg PO BID [facility] Last Admin: 09/11/16 09:01 Dose: 20 mg Folic Acid (Folic Acid) 1 mg PO DAILY [facility] Last Admin: 09/11/16 09:01 Dose: 1 mg Hydromorphone HCl (Dilaudid) 0.5 mg IVP Q15M PRN PRN Reason: Pain, severe (8-10) Ciprofloxacin (Cipro 400mg/200ml Dsw) 200 mls @ 133 mls/hr IVPB Q12H [facility] Last Admin: 09/11/16 07:45 Dose: 133 mls/hr Dextrose/Sodium Chloride (Dextrose 5%/0.45% Ns 1000 Ml) 1,000 mls @ 75 mls/hr IV .[id number] [facility] Last Admin: 09/10/16 21:53 Dose: 75 mls/hr Insulin Glargine (Lantus) 10 unit SC [facility] Last Admin: 09/10/16 21:54 Dose: 10 units Insulin Human Regular (Novolin R) 0 unit SC [facility] PRN Reason: Protocol Last Admin: 09/11/16 11:37 Dose: 4 unit Isosorbide Mononitrate (Imdur) 30 mg PO DAILY [facility] Last Admin: 09/11/16 09:01 Dose: 30 mg Metoprolol Succinate (Toprol Xl) 12.5 mg PO Q24H [facility] Last Admin: 09/10/16 18:43 Dose: 12.5 mg Ranolazine (Ranexa) 500 mg PO BID [facility] Last Admin: 09/11/16 09:02 Dose: 500 mg Rosuvastatin Calcium (Crestor) 20 mg PO [facility] Last Admin: 09/10/16 21:54 Dose: 20 mg Thiamine HCl (Vitamin B1 Tab) 100 mg PO DAILY [facility] Last Admin: 09/11/16 09:01 Dose: 100 mg - Labs Labs: 09/11/16 06:28 09/11/16 06:28 PT 13.3 SECONDS (9.7-12.2) H 09/09/16 06:10 INR 1.2 09/09/16 06:10 APTT 34 SECONDS (21-34) 09/04/16 06:48 - Constitutional Appears: Well - Head Exam Head Exam: ATRAUMATIC, NORMAL INSPECTION, NORMOCEPHALIC - Eye Exam Eye Exam: EOMI, Normal appearance, PERRL Pupil Exam: NORMAL ACCOMODATION, PERRL - ENT Exam ENT Exam: Mucous Membranes Moist, Normal Exam - Neck Exam Neck Exam: Full ROM, Normal Inspection. absent: Lymphadenopathy - Respiratory Exam Respiratory Exam: Decreased Breath Sounds - Cardiovascular Exam Cardiovascular Exam: REGULAR RHYTHM, +S1, +S2 - GI/Abdominal Exam GI & Abdominal Exam: Soft, Diminished Bowel Sounds - Rectal Exam Rectal Exam: Deferred Assessment and Plan - Assessment and Plan (Free Text) Plan: DR daisy sawant. wound care conit. Iv antibiotics f/u bone biopsy result
[2016-09-11] MEDS: Metoprolol Succinate 12.5 mg XL PO SCH (18:54)
[2016-09-11] MEDS: Dextrose 5%/0.45% NS 1,000 ML IV SCH ×2 (19:15→22:52)
--- NOTE | 2016-09-11 19:33 | CP.PCM.PN ---
Subjective - Date & Time of Evaluation Date of Evaluation: 09/11/16 Time of Evaluation: 19:05 - Subjective Subjective: No complaints Discussed bone marrow biopsy; pt wants to think about it Objective - Vital Signs/Intake and Output Vital Signs (last 24 hours): Temp Pulse Resp BP Pulse Ox 97.8 F 70 20 152/65 H 98 09/11/16 15:23 09/11/16 15:23 09/11/16 15:23 09/11/16 15:23 09/11/16 15:23 Intake and Output: 09/11/16 09/12/16 18:59 06:59 Intake Total 650 Balance 650 - Medications Medications: Current Medications Famotidine (Pepcid) 20 mg PO BID [facility] Last Admin: 09/11/16 18:54 Dose: 20 mg Folic Acid (Folic Acid) 1 mg PO DAILY [facility] Last Admin: 09/11/16 09:01 Dose: 1 mg Hydromorphone HCl (Dilaudid) 0.5 mg IVP Q15M PRN PRN Reason: Pain, severe (8-10) Ciprofloxacin (Cipro 400mg/200ml Dsw) 200 mls @ 133 mls/hr IVPB Q12H [facility] Last Admin: 09/11/16 07:45 Dose: 133 mls/hr Dextrose/Sodium Chloride (Dextrose 5%/0.45% Ns 1000 Ml) 1,000 mls @ 75 mls/hr IV .[id number] [facility] Last Admin: 09/11/16 19:15 Dose: Not Given Insulin Glargine (Lantus) 10 unit SC [facility] Last Admin: 09/10/16 21:54 Dose: 10 units Insulin Human Regular (Novolin R) 0 unit SC [facility] PRN Reason: Protocol Last Admin: 09/11/16 18:53 Dose: 4 unit Isosorbide Mononitrate (Imdur) 30 mg PO DAILY [facility] Last Admin: 09/11/16 09:01 Dose: 30 mg Metoprolol Succinate (Toprol Xl) 12.5 mg PO Q24H [facility] Last Admin: 09/11/16 18:54 Dose: 12.5 mg Ranolazine (Ranexa) 500 mg PO BID [facility] Last Admin: 09/11/16 18:54 Dose: 500 mg Rosuvastatin Calcium (Crestor) 20 mg PO [facility] Last Admin: 09/10/16 21:54 Dose: 20 mg Thiamine HCl (Vitamin B1 Tab) 100 mg PO DAILY [facility] Last Admin: 09/11/16 09:01 Dose: 100 mg - Labs Labs: 09/11/16 06:28 09/11/16 06:28 PT 13.3 SECONDS (9.7-12.2) H 09/09/16 06:10 INR 1.2 09/09/16 06:10 APTT 34 SECONDS (21-34) 09/04/16 06:48 - Head Exam Head Exam: ATRAUMATIC - Eye Exam Eye Exam: Normal appearance - ENT Exam ENT Exam: Mucous Membranes Dry - Respiratory Exam Respiratory Exam: NORMAL BREATHING PATTERN - Cardiovascular Exam Cardiovascular Exam: +S1, +S2 - GI/Abdominal Exam GI & Abdominal Exam: Normal Bowel Sounds Assessment and Plan (1) Pancytopenia Assessment & Plan: pt to think about bone marrow biopsy neutropenic precautions Status: Acute
[2016-09-11] MEDS: (Lantus) Insulin Glargine, Recombinant SC SCH (22:52)
[2016-09-12] MEDS: Dextrose 5%/0.45% NS 1,000 ML IV SCH (06:32)
[2016-09-12 07:38] LABS: BASO % 0.6 % (0.0-2.0); EOS # 0.1 K/uL (0.0-0.7); EOS % 3.7 % (0.0-4.0); HEMATOCRIT 24.6 % (35.0-51.0); LYMPH % 50.9 % (20.0-40.0); MEAN CORPUSCULAR HEMOGLOBIN 25.6 pg (27.0-31.0); MEAN CORPUSCULAR HGB CONC 33.2 g/dL (33.0-37.0); MEAN PLATELET VOLUME 9.4 fL (7.2-11.7); MONO # 0.6 K/uL (0.0-0.8); MONO % 30.5 % (0.0-10.0); NRBC % 0.1 % (0.0-2.0); PLATELET COUNT 129 K/uL (130-400); RED CELL DISTRIBUTION WIDTH 20.6 % (11.5-14.5); WHITE BLOOD COUNT 2.1 K/uL (4.8-10.8)
[2016-09-12 07:58] LABS: CHLORIDE 104 mmol/L (98-107); POTASSIUM 3.7 mmol/L (3.6-5.2); SODIUM 140 mmol/L (132-148)
[2016-09-12 08:00] LABS: BILIRUBIN,TOTAL 0.6 mg/dL (0.2-1.3); GFR AFRICAN-AMERICAN > 60
[2016-09-12 08:01] LABS: ALB/GLOB RATIO 0.8 (1.0-2.1); ALKALINE PHOSPHATASE 97 U/L (38-126); ALT/SGPT 17 U/L (21-72); AST/SGOT 14 U/L (17-59); BLOOD UREA NITROGEN 14 mg/dL (9-20); CALCIUM 8.7 mg/dl (8.6-10.4); CARBON DIOXIDE 27 mmol/L (22-30); GLUCOSE,RANDOM 127 mg/dL (75-110); TOTAL PROTEIN 6.9 g/dL (6.3-8.3)
--- NOTE | 2016-09-12 08:41 | CP.PCM.PN ---
Subjective - Date & Time of Evaluation Date of Evaluation: 09/12/16 Time of Evaluation: 08:30 - Subjective Subjective: pt seen s/p debridement and bone biopsy right ankle ulcer and OM . Objective - Vital Signs/Intake and Output Vital Signs (last 24 hours): Temp Pulse Resp BP Pulse Ox 97.6 F 64 18 149/70 97 09/12/16 08:00 09/12/16 08:00 09/12/16 08:00 09/12/16 08:00 09/12/16 08:00 Intake and Output: 09/12/16 09/12/16 06:59 18:59 Output Total 400 Balance -400 - Medications Medications: Current Medications Famotidine (Pepcid) 20 mg PO BID [facility] Last Admin: 09/11/16 18:54 Dose: 20 mg Folic Acid (Folic Acid) 1 mg PO DAILY [facility] Last Admin: 09/11/16 09:01 Dose: 1 mg Hydromorphone HCl (Dilaudid) 0.5 mg IVP Q15M PRN PRN Reason: Pain, severe (8-10) Ciprofloxacin (Cipro 400mg/200ml Dsw) 200 mls @ 133 mls/hr IVPB Q12H [facility] Last Admin: 09/11/16 20:22 Dose: 133 mls/hr Dextrose/Sodium Chloride (Dextrose 5%/0.45% Ns 1000 Ml) 1,000 mls @ 75 mls/hr IV .[id number] [facility] Last Admin: 09/12/16 06:32 Dose: 75 mls/hr Insulin Glargine (Lantus) 10 unit SC [facility] Last Admin: 09/11/16 22:52 Dose: 10 units Insulin Human Regular (Novolin R) 0 unit SC [facility] PRN Reason: Protocol Last Admin: 09/11/16 22:46 Dose: Not Given Isosorbide Mononitrate (Imdur) 30 mg PO DAILY [facility] Last Admin: 09/11/16 09:01 Dose: 30 mg Metoprolol Succinate (Toprol Xl) 12.5 mg PO Q24H [facility] Last Admin: 09/11/16 18:54 Dose: 12.5 mg Ranolazine (Ranexa) 500 mg PO BID [facility] Last Admin: 09/11/16 18:54 Dose: 500 mg Rosuvastatin Calcium (Crestor) 20 mg PO [facility] Last Admin: 09/11/16 22:52 Dose: 20 mg Thiamine HCl (Vitamin B1 Tab) 100 mg PO DAILY [facility] Last Admin: 09/11/16 09:01 Dose: 100 mg - Labs Labs: 09/12/16 07:32 09/12/16 07:32 PT 13.3 SECONDS (9.7-12.2) H 09/09/16 06:10 INR 1.2 09/09/16 06:10 APTT 34 SECONDS (21-34) 09/04/16 06:48
[2016-09-12 09:08] LABS: BASOPHIL 1 % (0-2); EOSINOPHIL 7 % (0-4); NEUTROPHIL 11 % (50-75); TOTAL CELLS COUNTED 100
[2016-09-12] MEDS: (Novolin R) Insulin Human Regular 100 units/ml vial SC SCH ×4 (10:05→21:44)
[2016-09-12] MEDS: Ranolazine 500 mg Extended Release Tablets PO SCH ×2 (10:05→17:35)
--- NOTE | 2016-09-12 10:14 | CP.PCM.PN ---
Subjective - Date & Time of Evaluation Date of Evaluation: 09/12/16 Time of Evaluation: 09:10 - Subjective Subjective: PGY2 Medicine Note - Dr. Tim Ramírez's service: Patient seen and examined at bedside this AM. Patient has no complaints at this time except a sore right foot. Patient says he does not know if he wants to get the bone marrow biopsy or not. Objective - Vital Signs/Intake and Output Vital Signs (last 24 hours): Temp Pulse Resp BP Pulse Ox 97.6 F 64 18 149/70 97 09/12/16 08:00 09/12/16 08:00 09/12/16 08:00 09/12/16 08:00 09/12/16 08:00 Intake and Output: 09/12/16 09/12/16 06:59 18:59 Output Total 400 Balance -400 - Medications Medications: Current Medications Famotidine (Pepcid) 20 mg PO BID [facility] Last Admin: 09/12/16 10:05 Dose: 20 mg Folic Acid (Folic Acid) 1 mg PO DAILY [facility] Last Admin: 09/12/16 10:05 Dose: 1 mg Hydromorphone HCl (Dilaudid) 0.5 mg IVP Q15M PRN PRN Reason: Pain, severe (8-10) Ciprofloxacin (Cipro 400mg/200ml Dsw) 200 mls @ 133 mls/hr IVPB Q12H [facility] Last Admin: 09/11/16 20:22 Dose: 133 mls/hr Dextrose/Sodium Chloride (Dextrose 5%/0.45% Ns 1000 Ml) 1,000 mls @ 75 mls/hr IV .[id number] [facility] Last Admin: 09/12/16 06:32 Dose: 75 mls/hr Insulin Glargine (Lantus) 10 unit SC HS [facility] Last Admin: 09/11/16 22:52 Dose: 10 units Insulin Human Regular (Novolin R) 0 unit SC ACHS [facility] PRN Reason: Protocol Last Admin: 09/12/16 10:05 Dose: 2 unit Isosorbide Mononitrate (Imdur) 30 mg PO DAILY [facility] Last Admin: 09/12/16 10:05 Dose: 30 mg Metoprolol Succinate (Toprol Xl) 12.5 mg PO Q24H [facility] Last Admin: 09/11/16 18:54 Dose: 12.5 mg Ranolazine (Ranexa) 500 mg PO BID [facility] Last Admin: 09/12/16 10:05 Dose: 500 mg Rosuvastatin Calcium (Crestor) 20 mg PO HS [facility] Last Admin: 09/11/16 22:52 Dose: 20 mg Thiamine HCl (Vitamin B1 Tab) 100 mg PO DAILY [facility] Last Admin: 09/12/16 10:05 Dose: 100 mg - Labs Labs: 09/12/16 07:32 09/12/16 07:32 PT 13.3 SECONDS (9.7-12.2) H 09/09/16 06:10 INR 1.2 09/09/16 06:10 APTT 34 SECONDS (21-34) 09/04/16 06:48 - Constitutional Appears: Non-toxic, No Acute Distress, Chronically Ill - Head Exam Head Exam: NORMAL INSPECTION - Eye Exam Eye Exam: EOMI - ENT Exam ENT Exam: Mucous Membranes Moist - Respiratory Exam Respiratory Exam: Clear to Ausculation Bilateral, NORMAL BREATHING PATTERN. absent: Rales, Rhonchi, Wheezes - Cardiovascular Exam Cardiovascular Exam: REGULAR RHYTHM, +S1, +S2. absent: Gallop, Rubs - GI/Abdominal Exam GI & Abdominal Exam: Soft, Normal Bowel Sounds. 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 Bishop, patient can take cipro 500mg PO Q12H x 8 more days for a total of 21 days of Abx therapy Follow up physical therapy eval and recs Podiatry consult - Dr. Ramirez - help appreciated - s/p bone biopsy 09/10/16 ID consulted - Dr. Bishop - help appreciated Surgery consulted- Dr. Lugo - help appreciated. s/p OR- aortofemoral angiogram via left groin, selective catherization of right side, balloon angioplasty of peroneal artery. Blood cultures negative after 5 days 08/28/16 Wound culture - positive for proteus mirabilis, pseudomonas aeruginosa and corynebacterium species 08/30/16 MRI ankle - positive for osteomyelsitis. prominent ulceration seen within medial soft tissues at the level of the left ankle. Marked signal abnormality seen within medial malleolus and distal tibia at the ankle joint space with heterogeneously increased STIR signal with patchy decreased T1 signal concerning for an acute osteomyelitis. Superimposed osteonecrosis and or avascular necrosis cannot entirely be excluded. Some patchy reactive signal with increased STIR and mild patchy decreased T1 signal noted within the anteromedial talus which may represent some developing acute osteomyelsitis. Mild tenosynovitis of the anterior tibial tensionsheath and posterior tendon sheath. Cipro 400mg IVPB Q12H started 08/31/16 Pancytopenia Heme/Onc consult - Dr. Knutson - help appreciated likely anemia of chronic disease will need bone marrow evaluation per Dr. Knutson's note Patient says he wants to think about whether he want to get the bone marrow biopsy or not Neutropenia Neutrophils 0.3 Neutropenic precautions DM RISS Lantus 10U SC HS HTN Imdur 30mg PO daily Toprol XL 12.5mg PO daily Hyperlipidemia Crestor 20mg PO HS Anemia Ferrlecit 125mg IVPB daily Prophylaxis Protonix 40mg PO discontinued due to decreased platelets, started pepcid 20mg PO BID SCDs contraindicated secondary to infection All management per Dr. Tim Ramírez
[2016-09-12] MEDS: Ciprofloxacin 400mg/200ml D5W 200 ML IVPB SCH ×2 (10:58→20:34)
--- NOTE | 2016-09-12 13:34 | CP.PCM.PN ---
Subjective - Date & Time of Evaluation Date of Evaluation: 09/12/16 Time of Evaluation: 08:00 - Subjective Subjective: bone bx neg d/c on PO rx Objective - Vital Signs/Intake and Output Vital Signs (last 24 hours): Temp Pulse Resp BP Pulse Ox 97.6 F 64 18 149/70 97 09/12/16 08:00 09/12/16 08:00 09/12/16 08:00 09/12/16 08:00 09/12/16 08:00 Intake and Output: 09/12/16 09/12/16 06:59 18:59 Output Total 400 Balance -400 - Medications Medications: Current Medications Famotidine (Pepcid) 20 mg PO BID [facility] Last Admin: 09/12/16 10:05 Dose: 20 mg Folic Acid (Folic Acid) 1 mg PO DAILY [facility] Last Admin: 09/12/16 10:05 Dose: 1 mg Hydromorphone HCl (Dilaudid) 0.5 mg IVP Q15M PRN PRN Reason: Pain, severe (8-10) Ciprofloxacin (Cipro 400mg/200ml Dsw) 200 mls @ 133 mls/hr IVPB Q12H [facility] Last Admin: 09/12/16 10:58 Dose: 133 mls/hr Dextrose/Sodium Chloride (Dextrose 5%/0.45% Ns 1000 Ml) 1,000 mls @ 75 mls/hr IV .[id number] [facility] Last Admin: 09/12/16 06:32 Dose: 75 mls/hr Insulin Glargine (Lantus) 10 unit SC [facility] Last Admin: 09/11/16 22:52 Dose: 10 units Insulin Human Regular (Novolin R) 0 unit SC [facility] PRN Reason: Protocol Last Admin: 09/12/16 13:25 Dose: 4 unit Isosorbide Mononitrate (Imdur) 30 mg PO DAILY [facility] Last Admin: 09/12/16 10:05 Dose: 30 mg Metoprolol Succinate (Toprol Xl) 12.5 mg PO Q24H [facility] Last Admin: 09/11/16 18:54 Dose: 12.5 mg Ranolazine (Ranexa) 500 mg PO BID [facility] Last Admin: 09/12/16 10:05 Dose: 500 mg Rosuvastatin Calcium (Crestor) 20 mg PO [facility] Last Admin: 09/11/16 22:52 Dose: 20 mg Thiamine HCl (Vitamin B1 Tab) 100 mg PO DAILY [facility] Last Admin: 09/12/16 10:05 Dose: 100 mg - Labs Labs: 09/12/16 07:32 09/12/16 07:32 PT 13.3 SECONDS (9.7-12.2) H 09/09/16 06:10 INR 1.2 09/09/16 06:10 APTT 34 SECONDS (21-34) 09/04/16 06:48 - Constitutional Appears: Non-toxic, Chronically Ill - Head Exam Head Exam: NORMOCEPHALIC - Eye Exam Eye Exam: PERRL. absent: Scleral icterus - ENT Exam ENT Exam: Mucous Membranes Dry - Neck Exam Neck Exam: absent: Lymphadenopathy - Respiratory Exam Respiratory Exam: Decreased Breath Sounds, Clear to Ausculation Bilateral - Cardiovascular Exam Cardiovascular Exam: REGULAR RHYTHM - GI/Abdominal Exam GI & Abdominal Exam: Distended, Soft Assessment and Plan - Assessment and Plan (Free Text) Plan: cont cipro foir 21 days
[2016-09-12] MEDS: Metoprolol Succinate 12.5 mg XL PO SCH (17:36)
--- NOTE | 2016-09-12 18:44 | CP.PCM.PN ---
Subjective - Date & Time of Evaluation Date of Evaluation: 09/19/16 Time of Evaluation: 11:00 - Subjective Subjective: clinically same Objective - Vital Signs/Intake and Output Vital Signs (last 24 hours): Temp Pulse Resp BP Pulse Ox 98.1 F 69 20 143/64 97 09/12/16 16:00 09/12/16 17:39 09/12/16 16:00 09/12/16 17:39 09/12/16 16:00 Intake and Output: 09/12/16 09/12/16 06:59 18:59 Intake Total 100 Output Total 400 540 Balance -400 -440 - Medications Medications: Current Medications Famotidine (Pepcid) 20 mg PO BID [facility] Last Admin: 09/12/16 17:35 Dose: 20 mg Folic Acid (Folic Acid) 1 mg PO DAILY [facility] Last Admin: 09/12/16 10:05 Dose: 1 mg Hydromorphone HCl (Dilaudid) 0.5 mg IVP Q15M PRN PRN Reason: Pain, severe (8-10) Ciprofloxacin (Cipro 400mg/200ml Dsw) 200 mls @ 133 mls/hr IVPB Q12H [facility] Last Admin: 09/12/16 10:58 Dose: 133 mls/hr Dextrose/Sodium Chloride (Dextrose 5%/0.45% Ns 1000 Ml) 1,000 mls @ 75 mls/hr IV .[id number] [facility] Last Admin: 09/12/16 06:32 Dose: 75 mls/hr Insulin Glargine (Lantus) 10 unit SC [facility] Last Admin: 09/11/16 22:52 Dose: 10 units Insulin Human Regular (Novolin R) 0 unit SC [facility] PRN Reason: Protocol Last Admin: 09/12/16 16:52 Dose: 2 unit Isosorbide Mononitrate (Imdur) 30 mg PO DAILY [facility] Last Admin: 09/12/16 10:05 Dose: 30 mg Metoprolol Succinate (Toprol Xl) 12.5 mg PO Q24H [facility] Last Admin: 09/12/16 17:36 Dose: 12.5 mg Ranolazine (Ranexa) 500 mg PO BID [facility] Last Admin: 09/12/16 17:35 Dose: 500 mg Rosuvastatin Calcium (Crestor) 20 mg PO [facility] Last Admin: 09/11/16 22:52 Dose: 20 mg Thiamine HCl (Vitamin B1 Tab) 100 mg PO DAILY [facility] Last Admin: 09/12/16 10:05 Dose: 100 mg - Labs Labs: 09/12/16 07:32 09/12/16 07:32 PT 13.3 SECONDS (9.7-12.2) H 09/09/16 06:10 INR 1.2 09/09/16 06:10 APTT 34 SECONDS (21-34) 09/04/16 06:48 - Constitutional Appears: Well - Head Exam Head Exam: ATRAUMATIC, NORMAL INSPECTION, NORMOCEPHALIC - Eye Exam Eye Exam: EOMI, Normal appearance, PERRL Pupil Exam: NORMAL ACCOMODATION, PERRL - ENT Exam ENT Exam: Mucous Membranes Moist, Normal Exam - Neck Exam Neck Exam: Full ROM, Normal Inspection. absent: Lymphadenopathy - Respiratory Exam Respiratory Exam: Decreased Breath Sounds - Cardiovascular Exam Cardiovascular Exam: REGULAR RHYTHM, +S1, +S2 - GI/Abdominal Exam GI & Abdominal Exam: Soft, Diminished Bowel Sounds - Rectal Exam Rectal Exam: Deferred Assessment and Plan - Assessment and Plan (Free Text) Plan: DR daisy Lugo bone biopsy -ve savana. cipro 500mg Po X 21 days
[2016-09-12] MEDS: (Lantus) Insulin Glargine, Recombinant SC SCH (21:50)
[2016-09-13] MEDS: Dextrose 5%/0.45% NS 1,000 ML IV SCH ×2 (02:00→13:33)
--- NOTE | 2016-09-13 03:12 | CP.PCM.PN ---
Subjective - Date & Time of Evaluation Date of Evaluation: 09/12/16 Time of Evaluation: 19:20 - Subjective Subjective: No complaints. Objective - Vital Signs/Intake and Output Vital Signs (last 24 hours): Temp Pulse Resp BP Pulse Ox 97.8 F 65 20 124/49 L 100 09/12/16 23:35 09/12/16 23:35 09/12/16 23:35 09/12/16 23:35 09/12/16 23:35 Intake and Output: 09/12/16 09/13/16 18:59 06:59 Intake Total 300 250 Output Total 540 Balance -240 250 - Medications Medications: Current Medications Famotidine (Pepcid) 20 mg PO BID [facility] Last Admin: 09/12/16 17:35 Dose: 20 mg Folic Acid (Folic Acid) 1 mg PO DAILY [facility] Last Admin: 09/12/16 10:05 Dose: 1 mg Hydromorphone HCl (Dilaudid) 0.5 mg IVP Q15M PRN PRN Reason: Pain, severe (8-10) Ciprofloxacin (Cipro 400mg/200ml Dsw) 200 mls @ 133 mls/hr IVPB Q12H [facility] Last Admin: 09/12/16 20:34 Dose: 133 mls/hr Dextrose/Sodium Chloride (Dextrose 5%/0.45% Ns 1000 Ml) 1,000 mls @ 75 mls/hr IV .[id number] [facility] Last Admin: 09/12/16 06:32 Dose: 75 mls/hr Insulin Glargine (Lantus) 10 unit SC [facility] Last Admin: 09/12/16 21:50 Dose: 10 units Insulin Human Regular (Novolin R) 0 unit SC [facility] PRN Reason: Protocol Last Admin: 09/12/16 21:44 Dose: Not Given Isosorbide Mononitrate (Imdur) 30 mg PO DAILY [facility] Last Admin: 09/12/16 10:05 Dose: 30 mg Metoprolol Succinate (Toprol Xl) 12.5 mg PO Q24H [facility] Last Admin: 09/12/16 17:36 Dose: 12.5 mg Ranolazine (Ranexa) 500 mg PO BID [facility] Last Admin: 09/12/16 17:35 Dose: 500 mg Rosuvastatin Calcium (Crestor) 20 mg PO HS [facility] Last Admin: 09/12/16 21:50 Dose: 20 mg Thiamine HCl (Vitamin B1 Tab) 100 mg PO DAILY [facility] Last Admin: 09/12/16 10:05 Dose: 100 mg - Labs Labs: 09/12/16 07:32 09/12/16 07:32 PT 13.3 SECONDS (9.7-12.2) H 09/09/16 06:10 INR 1.2 09/09/16 06:10 APTT 34 SECONDS (21-34) 09/04/16 06:48 - Head Exam Head Exam: ATRAUMATIC - Eye Exam Eye Exam: Normal appearance - ENT Exam ENT Exam: Mucous Membranes Dry - Respiratory Exam Respiratory Exam: NORMAL BREATHING PATTERN - Cardiovascular Exam Cardiovascular Exam: +S1, +S2 - GI/Abdominal Exam GI & Abdominal Exam: Normal Bowel Sounds Assessment and Plan (1) Pancytopenia Assessment & Plan: discussed bone marrow biopsy pt continues to want to think about it Status: Acute
[2016-09-13 07:24] LABS: BASO % 0.7 % (0.0-2.0); EOS # 0.1 K/uL (0.0-0.7); EOS % 5.6 % (0.0-4.0); HEMATOCRIT 24.6 % (35.0-51.0); LYMPH % 52.6 % (20.0-40.0); MEAN CELL VOLUME 76.6 fL (80.0-94.0); MEAN CORPUSCULAR HEMOGLOBIN 25.5 pg (27.0-31.0); MEAN CORPUSCULAR HGB CONC 33.3 g/dL (33.0-37.0); MONO # 0.5 K/uL (0.0-0.8); MONO % 27.1 % (0.0-10.0); PLATELET COUNT 125 K/uL (130-400)
[2016-09-13 07:32] LABS: CHLORIDE 104 mmol/L (98-107); SODIUM 140 mmol/L (132-148)
[2016-09-13 07:34] LABS: AST/SGOT 13 U/L (17-59); BILIRUBIN,TOTAL 0.5 mg/dL (0.2-1.3); CARBON DIOXIDE 28 mmol/L (22-30); GFR AFRICAN-AMERICAN > 60
[2016-09-13 07:35] LABS: ALB/GLOB RATIO 0.8 (1.0-2.1); ALKALINE PHOSPHATASE 92 U/L (38-126); ALT/SGPT 18 U/L (21-72); BLOOD UREA NITROGEN 15 mg/dL (9-20); CALCIUM 8.6 mg/dl (8.6-10.4); GLUCOSE,RANDOM 154 mg/dL (75-110); TOTAL PROTEIN 6.9 g/dL (6.3-8.3)
[2016-09-13 07:36] LABS: WHITE BLOOD COUNT 1.9 K/uL (4.8-10.8)
[2016-09-13] MEDS: Ciprofloxacin 400mg/200ml D5W 200 ML IVPB SCH (08:11)
[2016-09-13 08:15] VITALS: O2SAT 97
[2016-09-13] MEDS: (Novolin R) Insulin Human Regular 100 units/ml vial SC SCH ×3 (09:26→18:04)
[2016-09-13 10:01] LABS: EOSINOPHIL 2 % (0-4); NEUTROPHIL 10 % (50-75); TOTAL CELLS COUNTED 50
--- NOTE | 2016-09-13 10:16 | CP.PCM.PN ---
Subjective - Date & Time of Evaluation Date of Evaluation: 09/13/16 Time of Evaluation: 09:20 - Subjective Subjective: PGY2 Medicine Note - Dr. Tim Ramírze's service: Patient seen and examined at bedside this AM. Patient has no complaints at this time except a sore right foot. Patient denies fever, chills, chest pain, SOB, cough, dysuria. Objective - Vital Signs/Intake and Output Vital Signs (last 24 hours): Temp Pulse Resp BP Pulse Ox 98.1 F 66 19 137/60 97 09/13/16 07:00 09/13/16 07:00 09/13/16 07:00 09/13/16 07:00 09/13/16 07:00 Intake and Output: 09/13/16 09/13/16 06:59 18:59 Intake Total 250 Output Total 650 Balance -400 - Medications Medications: Current Medications Famotidine (Pepcid) 20 mg PO BID [facility] Last Admin: 09/12/16 17:35 Dose: 20 mg Folic Acid (Folic Acid) 1 mg PO DAILY [facility] Last Admin: 09/12/16 10:05 Dose: 1 mg Hydromorphone HCl (Dilaudid) 0.5 mg IVP Q15M PRN PRN Reason: Pain, severe (8-10) Dextrose/Sodium Chloride (Dextrose 5%/0.45% Ns 1000 Ml) 1,000 mls @ 75 mls/hr IV .[id number] [facility] Last Admin: 09/13/16 02:00 Dose: 75 mls/hr Ceftriaxone Sodium 1 gm/ (Sodium Chloride) 100 mls @ 200 mls/hr IVPB Q12H [facility] Insulin Glargine (Lantus) 10 unit SC HS [facility] Last Admin: 09/12/16 21:50 Dose: 10 units Insulin Human Regular (Novolin R) 0 unit SC ACHS [facility] PRN Reason: Protocol Last Admin: 09/13/16 09:26 Dose: 2 unit Isosorbide Mononitrate (Imdur) 30 mg PO DAILY [facility] Last Admin: 09/12/16 10:05 Dose: 30 mg Metoprolol Succinate (Toprol Xl) 12.5 mg PO Q24H [facility] Last Admin: 09/12/16 17:36 Dose: 12.5 mg Ranolazine (Ranexa) 500 mg PO BID [facility] Last Admin: 09/12/16 17:35 Dose: 500 mg Rosuvastatin Calcium (Crestor) 20 mg PO HS [facility] Last Admin: 09/12/16 21:50 Dose: 20 mg Thiamine HCl (Vitamin B1 Tab) 100 mg PO DAILY [facility] Last Admin: 09/12/16 10:05 Dose: 100 mg - Labs Labs: 09/13/16 07:15 09/13/16 07:15 PT 13.3 SECONDS (9.7-12.2) H 09/09/16 06:10 INR 1.2 09/09/16 06:10 APTT 34 SECONDS (21-34) 09/04/16 06:48 - Constitutional Appears: Non-toxic, No Acute Distress, Chronically Ill - Head Exam Head Exam: NORMAL INSPECTION - Eye Exam Eye Exam: EOMI - ENT Exam ENT Exam: Mucous Membranes Moist - Respiratory Exam Respiratory Exam: Clear to Ausculation Bilateral, NORMAL BREATHING PATTERN. absent: Rhonchi, Wheezes - Cardiovascular Exam Cardiovascular Exam: REGULAR RHYTHM, +S1, +S2. absent: Gallop, Rubs, Murmur - GI/Abdominal Exam GI & Abdominal Exam: Soft, Normal Bowel Sounds. 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 It is sensitive to rocephin though. Patient will need 3 weeks of Rocephin 1gm IVPB Q12H started today (09/13/16) Patient does not want to go to [facility] which is what his insurance allows for because his family is far away. Case management trying to arrange free transportation for family to visit patient. Will f/u Podiatry consult - Dr. Ramirez - help appreciated - s/p bone biopsy 09/10/16 ID consulted - Dr. Bishop - help appreciated Surgery consulted- Dr. Lugo - help appreciated. s/p OR- aortofemoral angiogram via left groin, selective catherization of right side, balloon angioplasty of peroneal artery. Blood cultures negative after 5 days 08/28/16 Wound culture - positive for proteus mirabilis, pseudomonas aeruginosa and corynebacterium species 08/30/16 MRI ankle - positive for osteomyelsitis. prominent ulceration seen within medial soft tissues at the level of the left ankle. Marked signal abnormality seen within medial malleolus and distal tibia at the ankle joint space with heterogeneously increased STIR signal with patchy decreased T1 signal concerning for an acute osteomyelitis. Superimposed osteonecrosis and or avascular necrosis cannot entirely be excluded. Some patchy reactive signal with increased STIR and mild patchy decreased T1 signal noted within the anteromedial talus which may represent some developing acute osteomyelsitis. Mild tenosynovitis of the anterior tibial tensionsheath and posterior tendon sheath. Cipro 400mg IVPB Q12H started 08/31/16 Pancytopenia Heme/Onc consult - Dr. Knutson - help appreciated likely anemia of chronic disease will need bone marrow evaluation per Dr. Knutson's note Patient says he wants to think about whether he want to get the bone marrow biopsy or not Neutropenia Neutrophils 0.3 Neutropenic precautions DM RISS Lantus 10U SC HS HTN Imdur 30mg PO daily Toprol XL 12.5mg PO daily Hyperlipidemia Crestor 20mg PO HS Anemia Ferrlecit 125mg IVPB daily Prophylaxis Protonix 40mg PO discontinued due to decreased platelets, started pepcid 20mg PO BID SCDs contraindicated secondary to infection All management per Dr. Tim Ramírez
[2016-09-13] MEDS: Ranolazine 500 mg Extended Release Tablets PO SCH ×2 (12:00→18:04)
--- NOTE | 2016-09-13 12:30 | CP.PCM.PN ---
Subjective - Date & Time of Evaluation Date of Evaluation: 09/13/16 Time of Evaluation: 12:29 - Subjective Subjective: Patient seen and evaluated at bedside, NAD. Patient reports slightly decreased pain to the surgical site. Bandage is clean dry and intact the the RLE. Patient denies n/v/f/c/sob. Appearance of wound improved at this time. Objective - Vital Signs/Intake and Output Vital Signs (last 24 hours): Temp Pulse Resp BP Pulse Ox 98.1 F 66 19 137/60 97 09/13/16 07:00 09/13/16 07:00 09/13/16 07:00 09/13/16 07:00 09/13/16 07:00 Intake and Output: 09/13/16 09/13/16 06:59 18:59 Intake Total 250 Output Total 650 Balance -400 - Medications Medications: Current Medications Famotidine (Pepcid) 20 mg PO BID [facility] Last Admin: 09/13/16 12:00 Dose: 20 mg Folic Acid (Folic Acid) 1 mg PO DAILY [facility] Last Admin: 09/13/16 12:00 Dose: 1 mg Hydromorphone HCl (Dilaudid) 0.5 mg IVP Q15M PRN PRN Reason: Pain, severe (8-10) Dextrose/Sodium Chloride (Dextrose 5%/0.45% Ns 1000 Ml) 1,000 mls @ 75 mls/hr IV .[id number] [facility] Last Admin: 09/13/16 02:00 Dose: 75 mls/hr Ceftriaxone Sodium 1 gm/ (Sodium Chloride) 100 mls @ 200 mls/hr IVPB Q12H [facility] Last Admin: 09/13/16 12:23 Dose: 200 mls/hr Insulin Glargine (Lantus) 10 unit SC HS [facility] Last Admin: 09/12/16 21:50 Dose: 10 units Insulin Human Regular (Novolin R) 0 unit SC ACHS [facility] PRN Reason: Protocol Last Admin: 09/13/16 09:26 Dose: 2 unit Isosorbide Mononitrate (Imdur) 30 mg PO DAILY [facility] Last Admin: 09/13/16 12:00 Dose: 30 mg Metoprolol Succinate (Toprol Xl) 12.5 mg PO Q24H [facility] Last Admin: 09/12/16 17:36 Dose: 12.5 mg Ranolazine (Ranexa) 500 mg PO BID [facility] Last Admin: 09/13/16 12:00 Dose: 500 mg Rosuvastatin Calcium (Crestor) 20 mg PO HS [facility] Last Admin: 09/12/16 21:50 Dose: 20 mg Thiamine HCl (Vitamin B1 Tab) 100 mg PO DAILY [facility] Last Admin: 09/13/16 12:00 Dose: 100 mg - Labs Labs: 09/13/16 07:15 09/13/16 07:15 PT 13.3 SECONDS (9.7-12.2) H 09/09/16 06:10 INR 1.2 09/09/16 06:10 APTT 34 SECONDS (21-34) 09/04/16 06:48 - Constitutional Appears: Well, Non-toxic, No Acute Distress - Neurological Exam Neurological Exam: Oriented x3 - Psychiatric Exam Psychiatric exam: Normal Affect, Normal Mood - Additional Findings Additional findings: DERMATOLOGIC: Right anterior tibia large granular ulceration, slightly decreased in size, minimal sanguinous drainage, no purulence, does not probe deep. There is surrounding hyperpigmentation, no gross erythema. Remaining skin intact. VASCULAR : DP/PT pulses 1/4, [employer]<3 seconds, skin temperature wnl at this time. NEUROLOGIC: Gross sensation intact ORTHOPEDIC: Pain on palpation to the right lower extremity Assessment and Plan - Assessment and Plan (Free Text) Assessment: 71 year old male POD#3 for right anterior leg wound debriement and bone biopsy. Plan: Patient seen and evaluated, d/w attending Dr. Ramirez Bone Bx pathology negative for OM Wound appearance improving at this time Pt stable from podiatry standpoint Bandage changed with xeroform, ABD, DSD Podiatry will continue to follow while in house
--- NOTE | 2016-09-13 16:31 | CP.PCM.PN ---
Subjective - Date & Time of Evaluation Date of Evaluation: 09/13/16 Time of Evaluation: 16:29 - Subjective Subjective: Diabetic foot ulcer ID consult 6 weeks IV ABX will be d/c to rehab today Pt agree, verbalize understanding Objective - Vital Signs/Intake and Output Vital Signs (last 24 hours): Temp Pulse Resp BP Pulse Ox 98.1 F 66 19 137/60 97 09/13/16 07:00 09/13/16 07:00 09/13/16 07:00 09/13/16 07:00 09/13/16 07:00 Intake and Output: 09/13/16 09/13/16 06:59 18:59 Intake Total 250 560 Output Total 650 Balance -400 560 - Medications Medications: Current Medications Famotidine (Pepcid) 20 mg PO BID [facility] Last Admin: 09/13/16 12:00 Dose: 20 mg Folic Acid (Folic Acid) 1 mg PO DAILY [facility] Last Admin: 09/13/16 12:00 Dose: 1 mg Hydromorphone HCl (Dilaudid) 0.5 mg IVP Q15M PRN PRN Reason: Pain, severe (8-10) Dextrose/Sodium Chloride (Dextrose 5%/0.45% Ns 1000 Ml) 1,000 mls @ 75 mls/hr IV .[id number] [facility] Last Admin: 09/13/16 13:33 Dose: 75 mls/hr Ceftriaxone Sodium 1 gm/ (Sodium Chloride) 100 mls @ 200 mls/hr IVPB Q12H [facility] Last Admin: 09/13/16 12:23 Dose: 200 mls/hr Insulin Glargine (Lantus) 10 unit SC HS [facility] Last Admin: 09/12/16 21:50 Dose: 10 units Insulin Human Regular (Novolin R) 0 unit SC ACHS [facility] PRN Reason: Protocol Last Admin: 09/13/16 13:19 Dose: 2 unit Isosorbide Mononitrate (Imdur) 30 mg PO DAILY [facility] Last Admin: 09/13/16 12:00 Dose: 30 mg Metoprolol Succinate (Toprol Xl) 12.5 mg PO Q24H [facility] Last Admin: 09/12/16 17:36 Dose: 12.5 mg Ranolazine (Ranexa) 500 mg PO BID [facility] Last Admin: 09/13/16 12:00 Dose: 500 mg Rosuvastatin Calcium (Crestor) 20 mg PO HS [facility] Last Admin: 09/12/16 21:50 Dose: 20 mg Thiamine HCl (Vitamin B1 Tab) 100 mg PO DAILY [facility] Last Admin: 09/13/16 12:00 Dose: 100 mg - Labs Labs: 09/13/16 07:15 09/13/16 07:15 PT 13.3 SECONDS (9.7-12.2) H 09/09/16 06:10 INR 1.2 09/09/16 06:10 APTT 34 SECONDS (21-34) 09/04/16 06:48 Assessment and Plan - Assessment and Plan (Free Text) Plan: Diabetic foot ulcer ID consult 6 weeks IV ABX will be d/c to rehab today Pt agree, verbalize understanding
[2016-09-13 17:12] VITALS: BP 121/67; PULSE 74; RESP 20; TEMP 97.5
--- NOTE | 2016-09-13 17:32 | CP.PCM.PN ---
Subjective - Date & Time of Evaluation Date of Evaluation: 09/13/16 Time of Evaluation: 13:00 - Subjective Subjective: No complaints. Deferred bone marrow biopsy Objective - Vital Signs/Intake and Output Vital Signs (last 24 hours): Temp Pulse Resp BP Pulse Ox 97.5 F L 74 20 121/67 97 09/13/16 16:00 09/13/16 16:00 09/13/16 16:00 09/13/16 16:00 09/13/16 16:00 Intake and Output: 09/13/16 09/13/16 06:59 18:59 Intake Total 250 560 Output Total 650 Balance -400 560 - Medications Medications: Current Medications Famotidine (Pepcid) 20 mg PO BID [facility] Last Admin: 09/13/16 12:00 Dose: 20 mg Folic Acid (Folic Acid) 1 mg PO DAILY [facility] Last Admin: 09/13/16 12:00 Dose: 1 mg Hydromorphone HCl (Dilaudid) 0.5 mg IVP Q15M PRN PRN Reason: Pain, severe (8-10) Dextrose/Sodium Chloride (Dextrose 5%/0.45% Ns 1000 Ml) 1,000 mls @ 75 mls/hr IV .[id number] [facility] Last Admin: 09/13/16 13:33 Dose: 75 mls/hr Ceftriaxone Sodium 1 gm/ (Sodium Chloride) 100 mls @ 200 mls/hr IVPB Q12H [facility] Last Admin: 09/13/16 12:23 Dose: 200 mls/hr Insulin Glargine (Lantus) 10 unit SC [facility] Last Admin: 09/12/16 21:50 Dose: 10 units Insulin Human Regular (Novolin R) 0 unit SC [facility] PRN Reason: Protocol Last Admin: 09/13/16 13:19 Dose: 2 unit Isosorbide Mononitrate (Imdur) 30 mg PO DAILY [facility] Last Admin: 09/13/16 12:00 Dose: 30 mg Metoprolol Succinate (Toprol Xl) 12.5 mg PO Q24H [facility] Last Admin: 09/12/16 17:36 Dose: 12.5 mg Ranolazine (Ranexa) 500 mg PO BID [facility] Last Admin: 09/13/16 12:00 Dose: 500 mg Rosuvastatin Calcium (Crestor) 20 mg PO [facility] Last Admin: 09/12/16 21:50 Dose: 20 mg Thiamine HCl (Vitamin B1 Tab) 100 mg PO DAILY [facility] Last Admin: 09/13/16 12:00 Dose: 100 mg - Labs Labs: 09/13/16 07:15 09/13/16 07:15 PT 13.3 SECONDS (9.7-12.2) H 09/09/16 06:10 INR 1.2 09/09/16 06:10 APTT 34 SECONDS (21-34) 09/04/16 06:48 - Head Exam Head Exam: ATRAUMATIC - Eye Exam Eye Exam: Normal appearance - ENT Exam ENT Exam: Mucous Membranes Dry - Respiratory Exam Respiratory Exam: NORMAL BREATHING PATTERN - Cardiovascular Exam Cardiovascular Exam: +S1, +S2 - GI/Abdominal Exam GI & Abdominal Exam: Normal Bowel Sounds Assessment and Plan (1) Pancytopenia Assessment & Plan: recommended bone marrow aspirate and biopsy for evaluation but pt deferred f/u as outpatient Status: Acute
[2016-09-13] MEDS: Metoprolol Succinate 12.5 mg XL PO SCH (18:05)
--- NOTE | 2016-09-16 21:16 | OP ---
PROCEDURE DATE: 09/10/2016 PREOPERATIVE DIAGNOSIS: Venous stasis ulcer, nonhealing and chronic, with osteomyelitis, right ankle . POSTOPERATIVE DIAGNOSES:. Venous stasis ulcer, nonhealing and chronic, with osteomyelitis, right ank le. PROCEDURES: Debridement of venous stasis ulcer with biopsy of bone and culture right ankle. SURGEON: Dr. John Ramirez ANESTHESIA: Local with IV sedation. ANESTHESIOLOGIST: ____. DESCRIPTION OF PROCEDURE: The patient was placed on the operative table in supine position, prepped and draped in the usual sterile manner and administered a 1:1 solution of 1% lidocaine plain and 0.25 % Marcaine plain, approximately 20 mL. Attention was then directed to the right ankle. Utilizing a curette, all fibrotic and necrotic tissue was curetted from the base of the ulceration. Attention wa s then directed to a deep area, which probed directly to the medial malleolus. This was curetted of all fibrotic tissue. Utilizing a bone trephine, a bone culture was taken at this level. Bone was re moved and sent for culture. The area was flushed copiously. The patient tolerated procedure and ane sthesia well. Bone biopsy and culture was taken to allow infectious disease to tailor the antibiotic more directly. The patient tolerated procedure and anesthesia well. The area was flushed copiously with normal saline. A sterile dressing consisting of Xeroform gauze, sterile 4 x 4s, abdominal pads and Hermann wrap was applied. The patient was escorted to the recovery room under the care of the ane sthesia department in good condition. John Ramirez DPM cc: 100 TT: 09/16/2016 21:15:17
--- NOTE | 2016-09-21 13:14 | CARD ---
APPROVED REPORT EKG Measurement Heart [id number] SC [id number] <Conclusion> Normal sinus rhythm Septal infarct, age undetermined Abnormal ECG
== END 2016-09-13 19:43 | DRG 623 ==
LOC: C.ER 01:46 → C.5T 05:02 → C.6T 17:17 → C.9I 08-29 10:26 → C.6T 08-31 23:58 → C.5T 09-11 12:17
PROVIDERS: ADMIT Internal Medicine Nephrology; ATTEND Internal Medicine Nephrology
PROC: 30233N1 Transfusion of Nonautologous Red Blood Cells into Peripheral Vein, Percutaneous Approach (ICD-10-PCS; 2016-08-29)
PROC: 0D598ZZ Destruction of Duodenum, Via Natural or Artificial Opening Endoscopic (ICD-10-PCS; 2016-08-31)
PROC: 0DB68ZX Excision of Stomach, Via Natural or Artificial Opening Endoscopic, Diagnostic (ICD-10-PCS; 2016-08-31)
PROC: 0DBN8ZX Excision of Sigmoid Colon, Via Natural or Artificial Opening Endoscopic, Diagnostic (ICD-10-PCS; 2016-08-31)
PROC: 02HV33Z Insertion of Infusion Device into Superior Vena Cava, Percutaneous Approach (ICD-10-PCS; 2016-08-31)
PROC: 047R34Z Dilation of Right Posterior Tibial Artery with Drug-eluting Intraluminal Device, Percutaneous Approach (ICD-10-PCS; 2016-09-04)
PROC: 047T3ZZ Dilation of Right Peroneal Artery, Percutaneous Approach (ICD-10-PCS; 2016-09-04)
PROC: 0QBG0ZX Excision of Right Tibia, Open Approach, Diagnostic (ICD-10-PCS; 2016-09-10)
PROC: 0JBQ0ZZ Excision of Right Foot Subcutaneous Tissue and Fascia, Open Approach (ICD-10-PCS; principal; 2016-09-10 07:30)
DX: E11.622 Type 2 diabetes mellitus with other skin ulcer (principal); L97.319 Non-pressure chronic ulcer of right ankle with unspecified severity; D61.818 Other pancytopenia; E11.51 Type 2 diabetes mellitus with diabetic peripheral angiopathy without gangrene; D70.9 Neutropenia, unspecified; D50.9 Iron deficiency anemia, unspecified; I10 Essential (primary) hypertension; I70.233 Atherosclerosis of native arteries of right leg with ulceration of ankle; E11.65 Type 2 diabetes mellitus with hyperglycemia; K29.50 Unspecified chronic gastritis without bleeding; K44.9 Diaphragmatic hernia without obstruction or gangrene; I25.10 Atherosclerotic heart disease of native coronary artery without angina pectoris; K31.819 Angiodysplasia of stomach and duodenum without bleeding; D12.7 Benign neoplasm of rectosigmoid junction; K64.1 Second degree hemorrhoids; K57.30 Diverticulosis of large intestine without perforation or abscess without bleeding; J44.9 Chronic obstructive pulmonary disease, unspecified; I87.2 Venous insufficiency (chronic) (peripheral); E78.00 Pure hypercholesterolemia, unspecified; Z95.5 Presence of coronary angioplasty implant and graft; F17.210 Nicotine dependence, cigarettes, uncomplicated; I25.2 Old myocardial infarction; Z79.4 Long term (current) use of insulin

== ENCOUNTER 2016-09-16 19:59 | Inpatient (IN) | payer OTHER, MEDICAID ==
[2016-09-16] MEDS ORDERED: Pantoprazole 80 MG in Sodium Chloride 0.9% 100 ML IV STA (20:23)
[2016-09-16] MEDS ORDERED: Sodium Chloride 0.9% 1,000 ML IV ONE (20:23)
--- NOTE | 2016-09-16 20:23 | C.PDOC ---
History Of Present Illness 71 y/o male presents to ED with complaint of spitting up/coughing blood earlier today. As per usp, patient "spit up approximately 40 mL of red blood". Patient denies fever, chills, nausea, vomiting, or other complaints on arrival. Time Seen by Provider: 09/16/16 20:22 Chief Complaint (Nursing): GI Problem History Per: Patient History/Exam Limitations: no limitations Onset/Duration Of Symptoms: Hrs Current Symptoms Are (Timing): Gone Pain Scale Rating Of: 0 Recent travel outside of the [place]: No Additional History Per: [facility] Past Medical History Reviewed: Historical Data, Nursing Documentation, Vital Signs Vital Signs: Last Vital Signs Temp Pulse 68 09/16/16 20:15 Resp 19 09/16/16 20:15 BP 136/68 09/16/16 20:15 Pulse Ox 98 09/16/16 21:26 - Medical History PMH: Anemia, HTN, Hypercholesterolemia, Kidney Stones, Chronic Kidney Disease Surgical History: Coronary Stent - [facility] Procedures CENTRAL VENOUS CATHETER PLACEMENT WITH GUIDANCE (10/04/14) CORONAR ARTERIOGR-2 CATH (05/28/12) DESTRUCTION OF DUODENUM, ENDO (08/28/16) DILATE OF R PERONEAL ART WITH DRUG-ELUT INTRA, PERC APPROACH (08/28/16) EXCISION OF R FOOT SUBCU/FASCIA, OPEN APPROACH (08/28/16) EXCISION OF RIGHT TARSAL, OPEN APPROACH, DIAGNOSTIC (08/28/16) EXCISION OF SIGMOID COLON, ENDO, DIAGN (08/28/16) EXCISION OF STOMACH, ENDO, DIAGN (08/28/16) INSERTION OF INFUSION DEV INTO SUP VENA CAVA, PERC APPROACH (08/28/16) INSERTION OF ONE VASCULAR STENT (08/05/12) INSERTION OF TWO VASCULAR STENTS (05/28/12) INSRT OF DRUG-ELUTING CORON ARTERY STENTS(S) (08/05/12) LEFT HEART CARDIAC CATH (05/28/12) PERCUTANEOUS TRANSLUMINAL CORONARY ANGIOPLASTY [PTCA] (08/05/12) PROCEDURE ON SINGLE VESSEL (08/05/12) PROCEDURE ON TWO VESSELS (05/28/12) TRANSFUSE NONAUT RED BLOOD CELLS IN PERIPH VEIN, PERC (08/28/16) Family History: States: Unknown Family Hx - Social History Hx Tobacco Use: Yes Hx Alcohol Use: No Hx Substance Use: No - Immunization History Hx Tetanus Toxoid Vaccination: No Hx Influenza Vaccination: No Hx Pneumococcal Vaccination: No Review Of Systems Constitutional: Negative for: Fever, Chills Cardiovascular: Negative for: Chest Pain Respiratory: Negative for: Cough, Shortness of Breath, Wheezing Gastrointestinal: Negative for: Nausea, Vomiting, Abdominal Pain, Diarrhea Skin: Negative for: Rash Physical Exam - Physical Exam Appears: Non-toxic, No Acute Distress, Other ( awake, alert, oriented) Skin: Warm, Dry Head: Atraumatic, Normacephalic Oral Mucosa: Moist Chest: Symmetrical Cardiovascular: Rhythm Regular Respiratory: No Accessory Muscle Use, No Rales, Rhonchi (scattered), No Wheezing Gastrointestinal/Abdominal: Bowel Sounds (good bowel sounds), Soft, No Tenderness, No Distention, No Guarding, No Rebound Extremity: Normal ROM, Capillary Refill (< 2 sec. ) Neurological/Psych: Oriented x3, Normal Speech, Normal Cognition ED Course And Treatment - Laboratory Results Result Diagrams: 09/16/16 20:54 09/16/16 20:54 ECG: Interpreted By Me, Viewed By Me ECG Rhythm: Sinus Rhythm (71), Nonspecific Changes O2 Sat by Pulse Oximetry: 98 Pulse Ox Interpretation: Normal - Radiology CXR: Interpreted by Me, Viewed By Me Disposition Discussed With : Santiago Ramírez Comment: accepted the pt on his service and took over the care at 11:29 PM Doctor Will See Patient In The: Hospital Counseled Patient/Family Regarding: Studies Performed, Diagnosis - Disposition Disposition: HOSPITALIZED Disposition Time: 20:23 Condition: FAIR - POA Present On Arrival: Poor Glycemic Control, Pressure Ulcer - Clinical Impression Clinical Impression: Gastrointestinal hemorrhage Decision To Admit - Pt Status Changed To: Hospital Disposition Of: Inpatient - Admit Certification Admit to Inpatient:: After my assessment, the patient will require hospitalization for at least two midnights. This is because of the severity of symptoms shown, intensity of services needed, and/or the medical risk in this patient being treated as an outpatient. - InPatient: Physician Admission Certification: I certify that this patient requires 2 or more midnights of care for the following reason:: After my assessment, the patient will require hospitalization for at least two midnights. This is because of the severity of symptoms shown, intensity of services needed, and/or the medical risk in this patient being treated as an outpatient. - . Bed Request Type: Regular Admitting Physician: Santiago Ramírez Patient Diagnosis: Gastrointestinal hemorrhage
[2016-09-16 21:08] LABS: CHLORIDE 98 mmol/L (98-107)
[2016-09-16 21:09] LABS: POTASSIUM 4.2 mmol/L (3.6-5.2); SODIUM 137 mmol/L (132-148)
[2016-09-16 21:11] LABS: ALB/GLOB RATIO 0.9 (1.0-2.1); AST/SGOT 16 U/L (17-59); BILIRUBIN,TOTAL 0.6 mg/dL (0.2-1.3); CARBON DIOXIDE 26 mmol/L (22-30); GFR AFRICAN-AMERICAN > 60; TOTAL PROTEIN 7.4 g/dL (6.3-8.3)
[2016-09-16 21:12] LABS: ALKALINE PHOSPHATASE 111 U/L (38-126); ALT/SGPT 19 U/L (21-72); BLOOD UREA NITROGEN 25 mg/dL (9-20); CALCIUM 8.7 mg/dl (8.6-10.4); GLUCOSE,RANDOM 113 mg/dL (75-110)
[2016-09-16] MEDS ORDERED: Sodium Chloride 0.9% 1,000 ML ONE (21:21)
[2016-09-16 21:24] LABS: BASO % 0.7 % (0.0-2.0); EOS # 0.1 K/uL (0.0-0.7); EOS % 4.7 % (0.0-4.0); HEMATOCRIT 24.4 % (35.0-51.0); LYMPH # 1.2 K/uL (1.0-4.3); MEAN CELL VOLUME 76.9 fL (80.0-94.0); MEAN CORPUSCULAR HEMOGLOBIN 25.9 pg (27.0-31.0); MEAN CORPUSCULAR HGB CONC 33.7 g/dL (33.0-37.0); MEAN PLATELET VOLUME 9.1 fL (7.2-11.7); MONO # 0.5 K/uL (0.0-0.8); MONO % 21.9 % (0.0-10.0); PLATELET COUNT 136 K/uL (130-400); WHITE BLOOD COUNT 2.1 K/uL (4.8-10.8)
[2016-09-16 21:28] LABS: INR 1.2
[2016-09-16 21:53] LABS: NEUTROPHIL 20 % (50-75); REACTIVE LYMPHOCYTES 4 % (0-0); TOTAL CELLS COUNTED 100
[2016-09-16 21:54] LABS: LARGE PLATELETS PRESENT
[2016-09-16 23:26] LABS: RBC URINE < 1 /hpf (0-3); URINE BACTERIA RARE (<OCC); URINE BILIRUBIN NEGATIVE (NEGATIVE); URINE BLOOD NEGATIVE (NEGATIVE); URINE COLOR Yellow (YELLOW); URINE GLUCOSE (UA) NORMAL (Normal); URINE KETONE NEGATIVE (NEGATIVE); URINE LEUKOCYTE ESTERASE NEG Leu/uL (Negative); URINE PROTEIN NEGATIVE (NEGATIVE); URINE UROBILINOGEN NORMAL mg/dL (0.2-1.0); WBC URINE < 1 /hpf (0-5)
[2016-09-16] MEDS ORDERED: Pantoprazole 80 MG in Sodium Chloride 0.9% 100 ML IVP SCH ×2 (23:30→23:45)
[2016-09-17] MEDS: Pantoprazole 80 MG in Sodium Chloride 0.9% 100 ML IV SCH ×3 (01:18→19:50)
--- NOTE | 2016-09-17 08:21 | RAD ---
PROCEDURE: CHEST RADIOGRAPH, 1 VIEW HISTORY: GI Bleeding COMPARISON: 09/05/2016 FINDINGS: LUNGS: Question right upper lobe infiltrate. PLEURA: No pneumothorax or pleural fluid seen. CARDIOVASCULAR: Normal. OSSEOUS STRUCTURES: No significant abnormalities. VISUALIZED UPPER ABDOMEN: Normal. OTHER FINDINGS: Right PICC line in place. IMPRESSION: Question right upper lobe infiltrate.
[2016-09-17] MEDS ORDERED: Magnesium Hydroxide Susp 30 ml UD PO PRN (09:44)
[2016-09-17] MEDS ORDERED: Metoprolol Succinate 12.5 mg XL PO SCH (09:45)
[2016-09-17] MEDS ORDERED: FAMOTIDINE 20 MG PO SCH (10:00)
[2016-09-17] MEDS: Ranolazine 500 mg Extended Release Tablets PO SCH ×2 (10:15→18:00)
[2016-09-17] MEDS: Metoprolol Succinate 12.5 mg XL PO SCH (10:51)
[2016-09-17 10:54] LABS: BASO % 0.6 % (0.0-2.0); EOS # 0.1 K/uL (0.0-0.7); EOS % 4.9 % (0.0-4.0); HEMATOCRIT 26.4 % (35.0-51.0); LYMPH % 56.9 % (20.0-40.0); MEAN CELL VOLUME 77.9 fL (80.0-94.0); MEAN CORPUSCULAR HEMOGLOBIN 25.8 pg (27.0-31.0); MEAN CORPUSCULAR HGB CONC 33.1 g/dL (33.0-37.0); MONO # 0.4 K/uL (0.0-0.8); NRBC % 0.2 % (0.0-2.0); PLATELET COUNT 138 K/uL (130-400)
[2016-09-17 10:58] LABS: WHITE BLOOD COUNT 1.8 K/uL (4.8-10.8)
--- NOTE | 2016-09-17 11:47 | CP.PCM.CON ---
History of Present Illness - History of Present Illness History of Present Illness: 71 y/o male presents to ED with complaint of spitting up/coughing blood earlier today. As per custodial, patient "spit up approximately 40 mL of red blood". Patient denies fever, chills, nausea, vomiting, or other complaints on arrival . was recently here for severe PVD requiring stent as well as nonhealing ulcer right medial malleolus denies fever chills or chest pain CXR shows RUL infiltrate CBC abnormal with neutropenia, anemia abn differential - Medical History PMH: Anemia, HTN, Hypercholesterolemia, Kidney Stones, Chronic Kidney Disease Surgical History: Coronary Stent - [facility] Procedures CENTRAL VENOUS CATHETER PLACEMENT WITH GUIDANCE (10/04/14) CORONAR ARTERIOGR-2 CATH (05/28/12) DESTRUCTION OF DUODENUM, ENDO (08/28/16) DILATE OF R PERONEAL ART WITH DRUG-ELUT INTRA, PERC APPROACH (08/28/16) EXCISION OF R FOOT SUBCU/FASCIA, OPEN APPROACH (08/28/16) EXCISION OF RIGHT TARSAL, OPEN APPROACH, DIAGNOSTIC (08/28/16) EXCISION OF SIGMOID COLON, ENDO, DIAGN (08/28/16) EXCISION OF STOMACH, ENDO, DIAGN (08/28/16) INSERTION OF INFUSION DEV INTO SUP VENA CAVA, PERC APPROACH (08/28/16) INSERTION OF ONE VASCULAR STENT (08/05/12) INSERTION OF TWO VASCULAR STENTS (05/28/12) INSRT OF DRUG-ELUTING CORON ARTERY STENTS(S) (08/05/12) LEFT HEART CARDIAC CATH (05/28/12) PERCUTANEOUS TRANSLUMINAL CORONARY ANGIOPLASTY [PTCA] (08/05/12) PROCEDURE ON SINGLE VESSEL (08/05/12) PROCEDURE ON TWO VESSELS (05/28/12) TRANSFUSE NONAUT RED BLOOD CELLS IN PERIPH VEIN, PERC (08/28/16) Review of Systems - Constitutional Constitutional: As Per HPI, Fatigue, Malaise. absent: Fever - EENT Eyes: absent: As Per HPI, Blind Spots, Blurred Vision, Change in Vision, Decreased Night Vision, Diplopia, Discharge, Dry Eye, Exophthalmos, Floaters, Irritation, Itchy Eyes, Loss of Peripheral Vision, Pain, Photophobia, Requires Corrective Lenses, Sees Flashes, Spots in Vision, Tunnel Vision, Other Visual Disturbances, Loss of Vision, Other Ears: absent: As Per HPI, Decreased Hearing, Ear Discharge, Ear Pain, Tinnitus, Abnormal Hearing, Disequilibrium, Dizziness, Other Nose/Mouth/Throat: absent: As Per HPI, Epistaxis, Nasal Congestion, Nasal Discharge, Nasal Obstruction, Nasal Trauma, Nose Pain, Post Nasal Drip, Sinus Pain, Sinus Pressure, Bleeding Gums, Change in Voice, Dental Pain, Dry Mouth, Dysphagia, Halitosis, Hoarsness, Lip Swelling, Mouth Lesions, Mouth Pain, Odynophagia, Sore Throat, Throat Swelling, Tongue Swelling, Facial Pain, Neck Pain, Neck Mass, Other - Cardiovascular Cardiovascular: As Per HPI - Respiratory Respiratory: As Per HPI, Cough, Hemoptysis - Gastrointestinal Gastrointestinal: absent: As Per HPI, Abdominal Pain, Belching, Bloating, Change in Bowel Habits, Change in Stool Character, Coffee Ground Emesis, Constipation, Cramping, Diarrhea, Dyspepsia, Dysphagia, Early Satiety, Excessive Flatus, Fecal Incontinence, Heartburn, Hematemesis, Hematochezia, Loose Stools, Melena, Nausea, Odynophagia, Temesmus, Vomiting, Other - Genitourinary Genitourinary: absent: As Per HPI, Change in Urinary Stream, Difficulty Urinating, Dysuria, Flank Pain, Hematuria, Pyuria, Nocturia, Urinary Incontinence, Urinary Frequency, Urinary Hesitance, Urinary Urgency, Voiding Freq/Small Amts, Freq UTI, Hx Renal/Bladder Calculi, Hx /Renal Surgery, Bladder Distension, Other - Musculoskeletal Musculoskeletal: absent: As Per HPI, Abnormal Gait, Arthralgias, Atrophy, Back Pain, Deformity, Joint Swelling, Limited Range of Motion, Loss of Height, Muscle Cramps, Muscle Weakness, Myalgias, Neck Pain, Numbness, Radiating Pain into Limb, Stiffness, Tingling, Other - Integumentary Integumentary: absent: As Per HPI, Acne, Alopecia, Bleeding Lesions, Change in Hair, Change in Nails, Change in Pigmentation, Changing Lesions, Dry Skin, Erythema, Furuncle, Hirsutism, Lesions, New Lesions, Non-Healing Lesions, Photosensitivity, Pruritus, Rash, Skin Pain, Skin Ulcer, Sores, Striae, Swelling , Unusual Bruising, Wounds, Jaundice, Other - Neurological Neurological: absent: As Per HPI, Abnormal Gait, Abnormal Hearing, Abnormal Movements, Abnormal Speech, Behavioral Changes, Burning Sensations, Confusion, Convulsions, Disequilibrium, Dizziness, Numbness, Focal Weakness, Frequent Falls , Headaches, Lack of Coordination, Loss of Vision, Memory Loss, Paresthesias, Radicular Pain, Restless Legs, Sensory Deficit, Syncope, Tingling, Tremor, Vertigo, Weakness, Other Visual Disturbances, Other - Psychiatric Psychiatric: absent: As Per HPI, Abnormal Sleep Pattern, Anhedonia, Anxiety, Auditory Hallucinations, Behavioral Changes, Change in Appetite, Change in Libido, Confusion, Depression, Difficulty Concentrating, Hallucinations, Homicidal Ideation, Hopelessness, Irritability, Memory Loss, Mood Swings, Panic Attacks, Paranoia, Suicidal Ideation, Visual Hallucinations, Tactile Hallucinations, Other - Endocrine Endocrine: absent: As Per HPI, Change in Body Appearance, Change in Libido, Cold Intolorance, Deepening of Voice, Excessive Sweating, Fatigue, Flushing, Heat Intolorance, Increase in Ring/Shoe/Hat Size, Palpitations, Polydipsia, Polyphagia, Polyuria, Other - Hematologic/Lymphatic Hematologic: absent: As Per HPI, Easy Bleeding, Easy Bruising, Lymphadenopathy, Other Past Patient History - Tetanus Immunizations Tetanus Immunization: Unknown - Past Medical History & Family History Past Medical History?: No - Past Social History Smoking Status: Former Smoker - CARDIAC Hx Hypercholesterolemia: Yes Hx Hypertension: Yes - PULMONARY Hx Respiratory Disorders: No - NEUROLOGICAL Hx Paralysis: No - HEENT Hx HEENT Problems: No - RENAL Hx Chronic Kidney Disease: Yes Hx Kidney Stones: Yes - ENDOCRINE/METABOLIC Hx Diabetes Mellitus Type 2: Yes - HEMATOLOGICAL/ONCOLOGICAL Hx Anemia: Yes - INTEGUMENTARY Hx Dermatological Problems: Yes Hx Cellulitis: Yes - MUSCULOSKELETAL/RHEUMATOLOGICAL Hx Musculoskeletal Disorders: Yes Hx Back Pain: Yes Hx Falls: Yes Hx Osteomyelitis: Yes Hx Spinal Stenosis: Yes - GASTROINTESTINAL Hx Gastrointestinal Disorders: No - GENITOURINARY/GYNECOLOGICAL Hx Genitourinary Disorders: No Hx Prostate Problems: Yes - PSYCHIATRIC Hx Substance Use: No - SURGICAL HISTORY Hx Coronary Stent: Yes - ANESTHESIA Hx Anesthesia: Yes Hx Anesthesia Reactions: No Hx Malignant Hyperthermia: No Meds Allergies/Adverse Reactions: Allergies Allergy/AdvReac Type Severity Reaction Status Date / Time No Known Allergies Allergy Verified 09/16/16 20:22 - Medications Medications: Current Medications Aspirin (Aspirin) 325 mg PO DAILY [facility] Last Admin: 09/17/16 10:15 Dose: 325 mg Folic Acid (Folic Acid) 1 mg PO DAILY [facility] Last Admin: 09/17/16 10:15 Dose: 1 mg Pantoprazole Sodium 80 mg/ (Sodium Chloride) 100 mls @ 10 mls/hr IV .Q10H [facility] PRN Reason: 8 MG/HR Last Admin: 09/17/16 10:50 Dose: 10 mls/hr Ceftriaxone Sodium 1 gm/ (Sodium Chloride) 100 mls @ 200 mls/hr IVPB Q12H [facility] Last Admin: 09/17/16 10:52 Dose: 200 mls/hr Insulin Glargine (Lantus) 10 unit SC [facility] Insulin Human Regular (Novolin R) 0 unit SC [facility] PRN Reason: Protocol Isosorbide Mononitrate (Imdur) 30 mg PO DAILY [facility] Last Admin: 09/17/16 10:15 Dose: 30 mg Magnesium Hydroxide (Milk Of Magnesia) 30 ml PO Q72 PRN PRN Reason: Constipation Metoprolol Succinate (Toprol Xl) 12.5 mg PO DAILY [facility] Last Admin: 09/17/16 10:51 Dose: 12.5 mg Pneumococcal Polyvalent Vaccine (Pneumovax 23 Vaccine) 0.5 ml IM .ONCE ONE Stop: 09/19/16 14:01 Ranolazine (Ranexa) 500 mg PO BID [facility] Last Admin: 09/17/16 10:15 Dose: 500 mg Rosuvastatin Calcium (Crestor) 20 mg PO [facility] Thiamine HCl (Vitamin B1 Tab) 100 mg PO DAILY [facility] Last Admin: 09/17/16 10:15 Dose: 100 mg Physical Exam - Constitutional Appears: Non-toxic, Cachectic, Chronically Ill - Head Exam Head Exam: ATRAUMATIC, NORMAL INSPECTION, NORMOCEPHALIC - Eye Exam Eye Exam: EOMI, PERRL. absent: Scleral icterus - ENT Exam ENT Exam: Mucous Membranes Dry, Normal External Ear Exam - Neck Exam Neck exam: Negative for: Lymphadenopathy, Thyromegaly - Respiratory Exam Respiratory Exam: Decreased Breath Sounds, Rhonchi - Cardiovascular Exam Cardiovascular Exam: REGULAR RHYTHM, +S1, +S2 - GI/Abdominal Exam GI & Abdominal Exam: Diminished Bowel Sounds, Soft. absent: Tenderness - Rectal Exam Rectal Exam: Deferred - Exam Exam: NORMAL INSPECTION - Extremities Exam Extremities exam: Positive for: pedal edema, tenderness, pedal pulses present. Negative for: calf tenderness - Back Exam Back exam: absent: CVA tenderness (L), CVA tenderness (R), paraspinal tenderness - Neurological Exam Neurological exam: Alert, CN II-XII Intact, Oriented x3, Reflexes Normal - Psychiatric Exam Psychiatric exam: Depressed - Skin Skin Exam: Dry Results - Vital Signs Recent Vital Signs: Last Vital Signs Temp 97.7 F 09/17/16 07:00 Pulse 73 09/17/16 07:00 Resp 20 09/17/16 07:00 BP 128/61 09/17/16 07:00 Pulse Ox 97 09/17/16 07:00 - Labs Result Diagrams: 09/17/16 10:44 09/16/16 20:54 Labs: Laboratory Results - last 24 hr 09/17/16 09/17/16 06:32 10:44 WBC 1.8 L* RBC 3.39 L Hgb 8.8 L Hct 26.4 L MCV 77.9 L MCH 25.8 L MCHC 33.1 RDW 21.0 H Plt Count 138 MPV 9.0 Neut % (Auto) 16.6 L Lymph % (Auto) 56.9 H [place] % (Auto) 21.0 H Eos % (Auto) 4.9 H Baso % (Auto) 0.6 Neut # 0.3 L Lymph # 1.0 [place] # 0.4 Eos # 0.1 Baso # 0.0 POC Glucose (mg/dL) 128 H Assessment & Plan (1) Diabetes mellitus with ulcer of ankle Status: Acute (2) Infected ulcer of skin Status: Acute (3) PAD (peripheral artery disease) Status: Acute (4) CAD (coronary artery disease) Status: Chronic - Assessment and Plan (Free Text) Assessment: spitting up blood r/o GI source recc- GI eval IV antibiotics CT Chest / abd Heme eval- r/o heme malignancy
[2016-09-17 11:48] LABS: EOSINOPHIL 5 % (0-4); NEUTROPHIL 17 % (50-75); TOTAL CELLS COUNTED 100
[2016-09-17] MEDS: (Novolin R) Insulin Human Regular 100 units/ml vial SC SCH ×3 (12:34→22:18)
--- NOTE | 2016-09-17 13:59 | CP.PCM.HP ---
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 As per retirement patient spit up about 40 mL of blood. Patient was recently admitted for severe PVD requiring stent also nonhealing ulcer over the right medial malleolus. Abnormal CBCanemia, neutropenia Chest x-ray suggestive of right upper lobe infiltrate No fever, nausea, vomiting Present on Admission - Present on Admission Any Indicators Present on Admission: No Past Patient History - Tetanus Immunizations Tetanus Immunization: Unknown - Past Medical History & Family History Past Medical History?: No - Past Social History Smoking Status: Former Smoker - CARDIAC Hx Hypercholesterolemia: Yes Hx Hypertension: Yes - PULMONARY Hx Respiratory Disorders: No - NEUROLOGICAL Hx Paralysis: No - HEENT Hx HEENT Problems: No - RENAL Hx Chronic Kidney Disease: Yes Hx Kidney Stones: Yes - ENDOCRINE/METABOLIC Hx Diabetes Mellitus Type 2: Yes - HEMATOLOGICAL/ONCOLOGICAL Hx Anemia: Yes - INTEGUMENTARY Hx Dermatological Problems: Yes Hx Cellulitis: Yes - MUSCULOSKELETAL/RHEUMATOLOGICAL Hx Musculoskeletal Disorders: Yes Hx Back Pain: Yes Hx Falls: Yes Hx Osteomyelitis: Yes Hx Spinal Stenosis: Yes - GASTROINTESTINAL Hx Gastrointestinal Disorders: No - GENITOURINARY/GYNECOLOGICAL Hx Genitourinary Disorders: No Hx Prostate Problems: Yes - PSYCHIATRIC Hx Substance Use: No - SURGICAL HISTORY Hx Coronary Stent: Yes - ANESTHESIA Hx Anesthesia: Yes Hx Anesthesia Reactions: No Hx Malignant Hyperthermia: No Meds Home Medications: Home Medication List Medication Instructions Recorded Confirmed Type Ranolazine [Ranexa] 500 mg PO BID #0 ter 10/05/16 Rx Allergies/Adverse Reactions: Allergies Allergy/AdvReac Type Severity Reaction Status Date / Time No Known Allergies Allergy Verified 09/16/16 20:22 Physical Exam - Constitutional Appears: Well - Head Exam Head Exam: ATRAUMATIC, NORMAL INSPECTION, NORMOCEPHALIC - Eye Exam Eye Exam: EOMI, Normal appearance, PERRL Pupil Exam: NORMAL ACCOMODATION, PERRL - ENT Exam ENT Exam: Mucous Membranes Moist, Normal Exam - Neck Exam Neck exam: Positive for: Normal Inspection - Respiratory Exam Respiratory Exam: Decreased Breath Sounds - Cardiovascular Exam Cardiovascular Exam: REGULAR RHYTHM, +S1, +S2 - GI/Abdominal Exam GI & Abdominal Exam: Diminished Bowel Sounds, Soft - Rectal Exam Rectal Exam: Deferred Results - Vital Signs Recent Vital Signs: Last Vital Signs Temp 97.7 F 09/17/16 07:00 Pulse 73 09/17/16 07:00 Resp 20 09/17/16 07:00 BP 128/61 09/17/16 07:00 Pulse Ox 97 09/17/16 07:00 - Labs Result Diagrams: 10/05/16 06:15 10/05/16 06:15 Labs: Laboratory Results - last 24 hr 09/17/16 09/17/16 09/17/16 06:32 10:44 11:47 WBC 1.8 L* RBC 3.39 L Hgb 8.8 L Hct 26.4 L MCV 77.9 L MCH 25.8 L MCHC 33.1 RDW 21.0 H Plt Count 138 MPV 9.0 Neut % (Auto) 16.6 L Lymph % (Auto) 56.9 H [place] % (Auto) 21.0 H Eos % (Auto) 4.9 H Baso % (Auto) 0.6 Neut # 0.3 L Lymph # 1.0 [place] # 0.4 Eos # 0.1 Baso # 0.0 Neutrophils % (Manual) 17 L Lymphocytes % (Manual) 65 H Monocytes % (Manual) 13 H Eosinophils % (Manual) 5 H Platelet Estimate Slightly decreased L Polychromasia Slight Hypochromasia (manual) Slight Anisocytosis (manual) Slight Microcytosis (manual) Slight Ovalocytes Slight POC Glucose (mg/dL) 128 H 183 H Assessment & Plan - Assessment and Plan (Free Text) Plan: Pulmonary consultation IV antibiotic septic workup sputum workup heme on consultation at the as ordered
--- NOTE | 2016-09-17 15:19 | CP.PCM.CON ---
History of Present Illness - History of Present Illness History of Present Illness: reason for consultation: cough and right upper lung infiltrat 71 year old male with PMhx of Anemia, HTN, Hypercholesterolemia, Kidney Stones , Chronic Kidney Disease, admitted for spitting up blood at [facility]. Patient was recently discharged from [facility] and had wound debridement and bone biopsy done. Denies shortness of breath, denies fever chills. Chest x-ray consistent with right upper lung infiltrate. Review of Systems - Review of Systems All systems: reviewed and no additional remarkable complaints except (cough with blood-tinged sputum) Past Patient History - Tetanus Immunizations Tetanus Immunization: Unknown - Past Medical History & Family History Past Medical History?: No - Past Social History Smoking Status: Former Smoker - CARDIAC Hx Cardiac Disorders: Yes (SD, Coronary Stent) Hx Hypercholesterolemia: Yes Hx Hypertension: Yes - PULMONARY Hx Respiratory Disorders: No - NEUROLOGICAL Hx Paralysis: No - HEENT Hx HEENT Problems: No - RENAL Hx Chronic Kidney Disease: Yes Hx Kidney Stones: Yes - ENDOCRINE/METABOLIC Hx Diabetes Mellitus Type 2: Yes - HEMATOLOGICAL/ONCOLOGICAL Hx Anemia: Yes - INTEGUMENTARY Hx Dermatological Problems: Yes Hx Cellulitis: Yes - MUSCULOSKELETAL/RHEUMATOLOGICAL Hx Musculoskeletal Disorders: Yes Hx Back Pain: Yes Hx Falls: Yes Hx Osteomyelitis: Yes Hx Spinal Stenosis: Yes - GASTROINTESTINAL Hx Gastrointestinal Disorders: No - GENITOURINARY/GYNECOLOGICAL Hx Genitourinary Disorders: No Hx Prostate Problems: Yes - PSYCHIATRIC Hx Substance Use: No - SURGICAL HISTORY Hx Coronary Stent: Yes - ANESTHESIA Hx Anesthesia: Yes Hx Anesthesia Reactions: No Hx Malignant Hyperthermia: No Meds Allergies/Adverse Reactions: Allergies Allergy/AdvReac Type Severity Reaction Status Date / Time No Known Allergies Allergy Verified 09/16/16 20:22 - Medications Medications: Current Medications Aspirin (Aspirin) 325 mg PO DAILY [facility] Last Admin: 09/17/16 10:15 Dose: 325 mg Folic Acid (Folic Acid) 1 mg PO DAILY [facility] Last Admin: 09/17/16 10:15 Dose: 1 mg Pantoprazole Sodium 80 mg/ (Sodium Chloride) 100 mls @ 10 mls/hr IV .Q10H [facility] PRN Reason: 8 MG/HR Last Admin: 09/17/16 10:50 Dose: 10 mls/hr Ceftriaxone Sodium 1 gm/ (Sodium Chloride) 100 mls @ 200 mls/hr IVPB Q12H [facility] Last Admin: 09/17/16 10:52 Dose: 200 mls/hr Insulin Glargine (Lantus) 10 unit SC [facility] Insulin Human Regular (Novolin R) 0 unit SC [facility] PRN Reason: Protocol Last Admin: 09/17/16 12:34 Dose: 1 unit Isosorbide Mononitrate (Imdur) 30 mg PO DAILY [facility] Last Admin: 09/17/16 10:15 Dose: 30 mg Magnesium Hydroxide (Milk Of Magnesia) 30 ml PO Q72 PRN PRN Reason: Constipation Metoprolol Succinate (Toprol Xl) 12.5 mg PO DAILY [facility] Last Admin: 09/17/16 10:51 Dose: 12.5 mg Pneumococcal Polyvalent Vaccine (Pneumovax 23 Vaccine) 0.5 ml IM .ONCE ONE Stop: 09/19/16 14:01 Ranolazine (Ranexa) 500 mg PO BID [facility] Last Admin: 09/17/16 10:15 Dose: 500 mg Rosuvastatin Calcium (Crestor) 20 mg PO [facility] Thiamine HCl (Vitamin B1 Tab) 100 mg PO DAILY [facility] Last Admin: 09/17/16 10:15 Dose: 100 mg Physical Exam - Head Exam Head Exam: ATRAUMATIC, NORMOCEPHALIC - Eye Exam Eye Exam: Normal appearance - ENT Exam ENT Exam: Mucous Membranes Moist - Neck Exam Neck exam: Positive for: Normal Inspection - Respiratory Exam Respiratory Exam: Clear to Auscultation Bilateral - Cardiovascular Exam Cardiovascular Exam: REGULAR RHYTHM - GI/Abdominal Exam GI & Abdominal Exam: Normal Bowel Sounds, Soft Results - Vital Signs Recent Vital Signs: Last Vital Signs Temp 97.7 F 09/17/16 07:00 Pulse 73 09/17/16 07:00 Resp 20 09/17/16 07:00 BP 128/61 09/17/16 07:00 Pulse Ox 97 09/17/16 07:00 - Labs Result Diagrams: 09/17/16 10:44 09/16/16 20:54 Labs: Laboratory Results - last 24 hr 09/17/16 09/17/16 09/17/16 06:32 10:44 11:47 WBC 1.8 L* RBC 3.39 L Hgb 8.8 L Hct 26.4 L MCV 77.9 L MCH 25.8 L MCHC 33.1 RDW 21.0 H Plt Count 138 MPV 9.0 Neut % (Auto) 16.6 L Lymph % (Auto) 56.9 H [place] % (Auto) 21.0 H Eos % (Auto) 4.9 H Baso % (Auto) 0.6 Neut # 0.3 L Lymph # 1.0 Bee # 0.4 Eos # 0.1 Baso # 0.0 Neutrophils % (Manual) 17 L Lymphocytes % (Manual) 65 H Monocytes % (Manual) 13 H Eosinophils % (Manual) 5 H Platelet Estimate Slightly decreased L Polychromasia Slight Hypochromasia (manual) Slight Anisocytosis (manual) Slight Microcytosis (manual) Slight Ovalocytes Slight POC Glucose (mg/dL) 128 H 183 H Assessment & Plan (1) Pneumonia Assessment and Plan: 71-year-old male presented with cough productive off blood-ting associated with right upper lung infiltrate Continue antibiotics CAT scan of the chest QuantiFERON Gold test Status: Acute
--- NOTE | 2016-09-17 16:02 | CP.PCM.CON ---
History of Present Illness - History of Present Illness History of Present Illness: Podiatry consult note-Dr. Ramirez 71 year old male with PMhx of Anemia, HTN, Hypercholesterolemia, Kidney Stones , Chronic Kidney Disease, admitted for spitting up blood at [facility]. Patient was recently discharged from [facility] and had wound debridement and bone biopsy done by Dr. Ramirez on 09/10/16. Patient has right lower extremity bandage intact with prevalon boot to the right foot. Patient denies n/v/f/c/sob, denies pain to his RLE at this time. Past Patient History - Tetanus Immunizations Tetanus Immunization: Unknown - Past Medical History & Family History Past Medical History?: No - Past Social History Smoking Status: Former Smoker - CARDIAC Hx Cardiac Disorders: Yes ([place], Coronary Stent) Hx Hypercholesterolemia: Yes Hx Hypertension: Yes - PULMONARY Hx Respiratory Disorders: No - NEUROLOGICAL Hx Paralysis: No - HEENT Hx HEENT Problems: No - RENAL Hx Chronic Kidney Disease: Yes Hx Kidney Stones: Yes - ENDOCRINE/METABOLIC Hx Diabetes Mellitus Type 2: Yes - HEMATOLOGICAL/ONCOLOGICAL Hx Anemia: Yes - INTEGUMENTARY Hx Dermatological Problems: Yes Hx Cellulitis: Yes - MUSCULOSKELETAL/RHEUMATOLOGICAL Hx Musculoskeletal Disorders: Yes Hx Back Pain: Yes Hx Falls: Yes Hx Osteomyelitis: Yes Hx Spinal Stenosis: Yes - GASTROINTESTINAL Hx Gastrointestinal Disorders: No - GENITOURINARY/GYNECOLOGICAL Hx Genitourinary Disorders: No Hx Prostate Problems: Yes - PSYCHIATRIC Hx Substance Use: No - SURGICAL HISTORY Hx Coronary Stent: Yes - ANESTHESIA Hx Anesthesia: Yes Hx Anesthesia Reactions: No Hx Malignant Hyperthermia: No Meds Allergies/Adverse Reactions: Allergies Allergy/AdvReac Type Severity Reaction Status Date / Time No Known Allergies Allergy Verified 09/16/16 20:22 - Medications Medications: Current Medications Aspirin (Aspirin) 325 mg PO DAILY [facility] Last Admin: 09/17/16 10:15 Dose: 325 mg Folic Acid (Folic Acid) 1 mg PO DAILY [facility] Last Admin: 09/17/16 10:15 Dose: 1 mg Pantoprazole Sodium 80 mg/ (Sodium Chloride) 100 mls @ 10 mls/hr IV .Q10H [facility] PRN Reason: 8 MG/HR Last Admin: 09/17/16 10:50 Dose: 10 mls/hr Ceftriaxone Sodium 1 gm/ (Sodium Chloride) 100 mls @ 200 mls/hr IVPB Q12H [facility] Last Admin: 09/17/16 10:52 Dose: 200 mls/hr Insulin Glargine (Lantus) 10 unit SC HS [facility] Insulin Human Regular (Novolin R) 0 unit SC ACHS [facility] PRN Reason: Protocol Last Admin: 09/17/16 12:34 Dose: 1 unit Isosorbide Mononitrate (Imdur) 30 mg PO DAILY [facility] Last Admin: 09/17/16 10:15 Dose: 30 mg Magnesium Hydroxide (Milk Of Magnesia) 30 ml PO Q72 PRN PRN Reason: Constipation Metoprolol Succinate (Toprol Xl) 12.5 mg PO DAILY [facility] Last Admin: 09/17/16 10:51 Dose: 12.5 mg Pneumococcal Polyvalent Vaccine (Pneumovax 23 Vaccine) 0.5 ml IM .ONCE ONE Stop: 09/19/16 14:01 Ranolazine (Ranexa) 500 mg PO BID [facility] Last Admin: 09/17/16 10:15 Dose: 500 mg Rosuvastatin Calcium (Crestor) 20 mg PO [facility] Thiamine HCl (Vitamin B1 Tab) 100 mg PO DAILY [facility] Last Admin: 09/17/16 10:15 Dose: 100 mg Physical Exam - Constitutional Appears: Well, Non-toxic, No Acute Distress - Neurological Exam Neurological exam: Oriented x3 - Psychiatric Exam Psychiatric exam: Normal Affect, Normal Mood - Additional Findings Additional findings: DERMATOLOGIC: Right lower extremity anterior leg ulceration, does not probe deep, granular base, mild serous drainage, no purulene, no undermining, no erythema or tracking present. The surrounding skin is intact. There is xerosis noted bilaterally. VASCULAR: DP/PT pulses 2/4, [employer]<3 seconds, skin temperature is normal NEUROLOGIC: Gross sensation intact, motor function intact ORTHOPEDIC: Mild pain on palpation to the wound site Results - Vital Signs Recent Vital Signs: Last Vital Signs Temp 97.7 F 09/17/16 07:00 Pulse 73 09/17/16 07:00 Resp 20 09/17/16 07:00 BP 128/61 09/17/16 07:00 Pulse Ox 97 09/17/16 07:00 - Labs Result Diagrams: 09/17/16 10:44 09/16/16 20:54 Labs: Laboratory Results - last 24 hr 09/17/16 09/17/16 09/17/16 06:32 10:44 11:47 WBC 1.8 L* RBC 3.39 L Hgb 8.8 L Hct 26.4 L MCV 77.9 L MCH 25.8 L MCHC 33.1 RDW 21.0 H Plt Count 138 MPV 9.0 Neut % (Auto) 16.6 L Lymph % (Auto) 56.9 H [place] % (Auto) 21.0 H Eos % (Auto) 4.9 H Baso % (Auto) 0.6 Neut # 0.3 L Lymph # 1.0 [place] # 0.4 Eos # 0.1 Baso # 0.0 Neutrophils % (Manual) 17 L Lymphocytes % (Manual) 65 H Monocytes % (Manual) 13 H Eosinophils % (Manual) 5 H Platelet Estimate Slightly decreased L Polychromasia Slight Hypochromasia (manual) Slight Anisocytosis (manual) Slight Microcytosis (manual) Slight Ovalocytes Slight POC Glucose (mg/dL) 128 H 183 H Assessment & Plan - Assessment and Plan (Free Text) Assessment: 71 year old male with anterior leg ulceration of the right lower extremity Plan: Patient seen and evaluated at beside with attending, Dr. Ramirez Patients wound dressed with xeroform. DSD Patient stable from podiatry at this point Podiatry will continue to follow while pt is in house
[2016-09-17] MEDS ORDERED: Iodixanol 320 MG/ML 100 ML BOTTLE IV ONE (17:11)
--- NOTE | 2016-09-17 17:53 | CP.PCM.PN ---
<Miguel Ángel Juarez - Last Filed: 09/17/16 17:50> Subjective - Date & Time of Evaluation Date of Evaluation: 09/17/16 Time of Evaluation: 10:00 - Subjective Subjective: PGY2 on medicine Dr. Ramírez service: Pt seen and examined at bedside this morning. Pt reports painful and swollen left forearm started a week ago after he was discharged from hospital. He said no more episodes of hemoptysis. No other complaints at this time. Objective - Vital Signs/Intake and Output Vital Signs (last 24 hours): Temp Pulse Resp BP Pulse Ox 97.4 F L 69 20 148/64 97 09/17/16 15:00 09/17/16 15:00 09/17/16 15:00 09/17/16 15:00 09/17/16 15:00 - Medications Medications: Current Medications Aspirin (Aspirin) 325 mg PO DAILY [facility] Last Admin: 09/17/16 10:15 Dose: 325 mg Folic Acid (Folic Acid) 1 mg PO DAILY [facility] Last Admin: 09/17/16 10:15 Dose: 1 mg Pantoprazole Sodium 80 mg/ (Sodium Chloride) 100 mls @ 10 mls/hr IV .Q10H [facility] PRN Reason: 8 MG/HR Last Admin: 09/17/16 10:50 Dose: 10 mls/hr Ceftriaxone Sodium 1 gm/ (Sodium Chloride) 100 mls @ 200 mls/hr IVPB Q12H [facility] Last Admin: 09/17/16 10:52 Dose: 200 mls/hr Insulin Glargine (Lantus) 10 unit SC HS [facility] Insulin Human Regular (Novolin R) 0 unit SC ACHS [facility] PRN Reason: Protocol Last Admin: 09/17/16 12:34 Dose: 1 unit Isosorbide Mononitrate (Imdur) 30 mg PO DAILY [facility] Last Admin: 09/17/16 10:15 Dose: 30 mg Magnesium Hydroxide (Milk Of Magnesia) 30 ml PO Q72 PRN PRN Reason: Constipation Metoprolol Succinate (Toprol Xl) 12.5 mg PO DAILY [facility] Last Admin: 09/17/16 10:51 Dose: 12.5 mg Pneumococcal Polyvalent Vaccine (Pneumovax 23 Vaccine) 0.5 ml IM .ONCE ONE Stop: 09/19/16 14:01 Ranolazine (Ranexa) 500 mg PO BID [facility] Last Admin: 09/17/16 10:15 Dose: 500 mg Rosuvastatin Calcium (Crestor) 20 mg PO [facility] Thiamine HCl (Vitamin B1 Tab) 100 mg PO DAILY [facility] Last Admin: 09/17/16 10:15 Dose: 100 mg - Labs Labs: 09/17/16 10:44 PT 13.8 SECONDS (9.7-12.2) H 09/16/16 20:54 INR 1.2 09/16/16 20:54 APTT 34 SECONDS (21-34) 09/16/16 20:54 - Constitutional Appears: Non-toxic, No Acute Distress - Head Exam Head Exam: NORMAL INSPECTION, NORMOCEPHALIC - Eye Exam Eye Exam: Normal appearance Pupil Exam: NORMAL ACCOMODATION - ENT Exam ENT Exam: Mucous Membranes Moist - Respiratory Exam Respiratory Exam: Clear to Ausculation Bilateral, NORMAL BREATHING PATTERN. absent: Rhonchi, Wheezes - Cardiovascular Exam Cardiovascular Exam: REGULAR RHYTHM, +S1, +S2. absent: Gallop, Rubs - GI/Abdominal Exam GI & Abdominal Exam: Soft, Normal Bowel Sounds. absent: Rigid, Tenderness - Extremities Exam Additional comments: right foot dressing intact - Neurological Exam Neurological Exam: Alert, Awake, Oriented x3 - Psychiatric Exam Psychiatric exam: Normal Mood - Skin Skin Exam: Dry, Intact Assessment and Plan - Assessment and Plan (Free Text) Assessment: Hemoptysis 40ml red blood reported at [facility] per ED note. No more episodes in hospital. Dr. Ross and Dario consulted, help appreciated. CXR showed RUL infiltrate. Rocephin started 09/17. Protonix drip @8mg/hr. F/U CT angio of chest. Right foot infection Podiatry Dr. Ramirez consulted, help appreciated. Left arm swelling F/U venous doppler. DM Lantus 10U SC HS RISS, accucheck. Prophylactic measure Protonix drip. <Santiago Ramírez - Last Filed: 09/29/16 09:27> Objective - Vital Signs/Intake and Output Vital Signs (last 24 hours): Temp Pulse Resp BP Pulse Ox 97.5 F L 70 20 155/85 H 98 09/29/16 08:10 09/29/16 08:10 09/29/16 08:10 09/29/16 08:10 09/29/16 08:10 Intake and Output: 09/29/16 09/29/16 06:59 18:59 Intake Total 840 Output Total 400 Balance 440 - Medications Medications: Current Medications Aspirin (Aspirin) 325 mg PO DAILY [facility] Last Admin: 09/28/16 09:43 Dose: 325 mg Folic Acid (Folic Acid) 1 mg PO DAILY [facility] Last Admin: 09/28/16 09:43 Dose: 1 mg Ceftriaxone Sodium 1 gm/ (Sodium Chloride) 100 mls @ 200 mls/hr IVPB Q12H [facility] Last Admin: 09/28/16 21:41 Dose: 200 mls/hr Insulin Glargine (Lantus) 10 unit SC HS [facility] Last Admin: 09/28/16 21:47 Dose: 10 units Insulin Human Regular (Novolin R) 0 unit SC [facility] PRN Reason: Protocol Last Admin: 09/29/16 07:59 Dose: Not Given Isosorbide Mononitrate (Imdur) 30 mg PO DAILY [facility] Last Admin: 09/28/16 09:42 Dose: 30 mg Lactic Acid (Lac-Hydrin 12% Lotion (225 G)) 0 gm EXT BID [facility] Last Admin: 09/28/16 18:28 Dose: 1 applic Magnesium Hydroxide (Milk Of Magnesia) 30 ml PO Q72 PRN PRN Reason: Constipation Metoprolol Succinate (Toprol Xl) 12.5 mg PO DAILY [facility] Last Admin: 09/28/16 09:45 Dose: 12.5 mg Pantoprazole Sodium (Protonix Ec Tab) 40 mg PO DAILY [facility] Last Admin: 09/28/16 09:42 Dose: 40 mg Ranolazine (Ranexa) 500 mg PO BID [facility] Last Admin: 09/28/16 18:38 Dose: 500 mg Rosuvastatin Calcium (Crestor) 20 mg PO HS [facility] Last Admin: 09/28/16 21:40 Dose: 20 mg Thiamine HCl (Vitamin B1 Tab) 100 mg PO DAILY [facility] Last Admin: 09/28/16 09:43 Dose: 100 mg - Labs Labs: 09/29/16 07:20 09/29/16 07:20 PT 13.8 SECONDS (9.7-12.2) H 09/16/16 20:54 INR 1.2 09/16/16 20:54 APTT 34 SECONDS (21-34) 09/16/16 20:54 Assessment and Plan (1) Gastrointestinal hemorrhage Status: Acute (2) Pneumonia Status: Acute (3) Anemia Status: Acute (4) Chest pain Status: Acute (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 Status: Acute (6) Diabetes mellitus, new onset Status: Acute (7) Infected ulcer of skin Status: Acute (8) PAD (peripheral artery disease) Status: Acute (9) Pancytopenia Status: Acute (10) Prophylactic measure Status: Acute (11) CAD (coronary artery disease) Status: Chronic (12) Diabetes mellitus Status: Chronic Attending/Attestation - Attestation I have personally seen and examined this patient.: Yes I have fully participated in the care of the patient.: Yes I have reviewed all pertinent clinical information, including history, physical exam and plan: Yes Notes (Text): clinically same case quyen nd discused [facility] staff being treated for pneumonia pancytopneia and iebetic foot
--- NOTE | 2016-09-17 20:59 | CT ---
EXAM: CT Chest With Intravenous Contrast CLINICAL HISTORY: 71 years old, male; Condition or disease; Lung condition and disease; Other: Hemoptysis; Additional info: Hemoptysis, rul infiltrate TECHNIQUE: Axial computed tomography images of the chest with intravenous contrast during the arterial phase of enhancement. This CT exam was performed using one or more of the following dose reduction techniques: automated exposure control, adjustment of the mA and/or kV according to patient size, and/or use of iterative reconstruction technique. Coronal and sagittal reformatted images were created and reviewed. CONTRAST: 100 mL of administered intravenously. EXAM DATE/TIME: 09/17/2016 3:10 PM COMPARISON: No relevant prior studies available. FINDINGS: PULMONARY ARTERIES: Contrast opacification of the pulmonary arteries is adequate, and there are no filling defects seen to suggest pulmonary embolism. AORTA: Atherosclerotic disease of the aorta is noted. There is irregular ulcerative atherosclerotic plaque in the distal descending thoracic and upper abdominal aorta. No evidence of aortic dissection. No evidence of periaortic hemorrhage. No evidence of thoracic aortic aneurysm. LUNGS: Patchy, multifocal areas of consolidation in the right upper lobe. Both dense and groundglass consolidation are seen. Findings are highly suspicious for pneumonia. Best seen on image 99 of series 2, there is abnormal soft tissue density material filling the anterior segment of the right upper lobe bronchus. This partially extends into the right mainstem bronchus. The right middle and lower lobe bronchi appear patent. Elongated density in the right lung apex, with an appearance most suggestive of scarring.[id number] emphysematous changes, greatest in the upper lungs. PLEURAL SPACE: No pneumothorax or pleural effusions seen. HEART: Coronary artery calcification. No evidence of significant pericardial effusion. BONES/JOINTS: No acute bony abnormality identified. LYMPH NODES: 2.2 cm masslike area of soft tissue density in the right hilum, suspicious for a lymph node. No evidence of diffuse pathologic lymphadenopathy. Negative. TUBES, LINES AND DEVICES: Right PICC line is in place, which terminates in the superior vena cava. IMPRESSION: - Findings highly suspicious for right upper lobe pneumonia. There is abnormal soft tissue filling the right upper lobe bronchus anterior segment. This constellation of findings can be seen in the setting of aspiration pneumonia, however, followup is recommended to exclude an underlying neoplastic process causing endobronchial obstruction. - Ulcerative plaque seen in the distal descending thoracic and upper abdominopelvic aorta, with no evidence of dissection or periaortic hemorrhage. - Mildly enlarged right hilar lymph node. This may be reactive in etiology. - Diffuse emphysematous changes - See above for remaining findings.
--- NOTE | 2016-09-17 21:22 | VASCLAB ---
PROCEDURE: Left Upper Extremity Venous Duplex Exam HISTORY: left forearm swelling PRIORS: None. TECHNIQUE: Left upper extremity, internal jugular, subclavian, axillary, brachial, ulnar, radial, basilic and upper cephalic veins were evaluated. Flow was assessed with color Doppler, compressibility, assessment of phasic flow and augmentation response. Report prepared by AYAKA Tee, RVT FINDINGS: LEFT: 1. Internal Jugular: 1.1. Compressibility - Fully compressible: Thrombus - None : Flow - Phasic: Augmentation -Normal: Reflux - None. 2. Subclavian: 2.1. Compressibility - Fully compressible: Thrombus - None : Flow - Phasic: Augmentation -Normal: Reflux - None. 3. Axillary: 3.1. Compressibility - Fully compressible: Thrombus - None : Flow - Phasic: Augmentation -Normal: Reflux - None. 4. Brachial: 4.1. Compressibility - Fully compressible: Thrombus - None: Flow - Phasic: Augmentation -Normal: Reflux - None. 5. Ulnar: 5.1. Compressibility - Fully compressible: Thrombus - None: Flow - Phasic: Augmentation -Normal: Reflux - None. 6. Radial: 6.1. Compressibility - Fully compressible: Thrombus - None: Flow - Phasic: Augmentation - Normal: Reflux - None. 7. Cephalic: 7.1. Compressibility - Partial: Thrombus - Acute: Flow - Reduced : Augmentation -None: Reflux - None. 8. Basilic: 8.1. Compressibility - Fully compressible: Thrombus - None: Flow - Phasic: Augmentation -Normal: Reflux - None. OTHER FINDINGS: Left: None. IMPRESSION: Left: Acute thrombosis of the left forearm cephalic vein with mild reduction of the venous return. Normal venous flow noted in the right internal jugular and right subclavian veins. D/W LUCÍA Pemberton at approximately 9:18 p.m. on 09/17/2016.
[2016-09-17] MEDS: (Lantus) Insulin Glargine, Recombinant SC SCH (22:12)
--- NOTE | 2016-09-18 06:13 | CP.PCM.CON ---
History of Present Illness - History of Present Illness History of Present Illness: Surgery: Dr. Lugo CC: L forearm pain HPI: 71M w. PMH Anemia, HTN, Hypercholesterolemia, Kidney Stones, Chronic Kidney Disease, non-healing ulcer R medial malleolous 2/2 PVD s/p stent placement presents to ED from [facility] for hemoptysis. Pt reportedly coughed up 40mL of red blood early yesterday. Surgery has been consulted for L forearm pain x 1 week. Pt states that he has been experiencing constant pain at the L forearm. Pain is described as stabbing. Pain is not exacerbated by activity. But it is exacerbated when pressure is applied to the affected area. Pt deneis WOOD/blurred vision, no CP/palpitations, no SOB, no change in appetite, no N/V/D, no hematuria/dysuria. PMH: Anemia, HTN, Hypercholesterolemia, Kidney Stones, Chronic Kidney Disease, PVD PSH: stents Meds: MAR reviewed NKDA Social: Former smoker, no ETOH/drugs Fhx: Non-contributory Review of Systems - Review of Systems All systems: reviewed and no additional remarkable complaints except (HPI) Past Patient History - Tetanus Immunizations Tetanus Immunization: Unknown - Past Medical History & Family History Past Medical History?: No - Past Social History Smoking Status: Former Smoker - CARDIAC Hx Cardiac Disorders: Yes ([place], Coronary Stent) Hx Hypercholesterolemia: Yes Hx Hypertension: Yes - PULMONARY Hx Respiratory Disorders: No - NEUROLOGICAL Hx Paralysis: No - HEENT Hx HEENT Problems: No - RENAL Hx Chronic Kidney Disease: Yes Hx Kidney Stones: Yes - ENDOCRINE/METABOLIC Hx Diabetes Mellitus Type 2: Yes - HEMATOLOGICAL/ONCOLOGICAL Hx Anemia: Yes - INTEGUMENTARY Hx Dermatological Problems: Yes Hx Cellulitis: Yes - MUSCULOSKELETAL/RHEUMATOLOGICAL Hx Musculoskeletal Disorders: Yes Hx Back Pain: Yes Hx Falls: Yes Hx Osteomyelitis: Yes Hx Spinal Stenosis: Yes - GASTROINTESTINAL Hx Gastrointestinal Disorders: No - GENITOURINARY/GYNECOLOGICAL Hx Genitourinary Disorders: No Hx Prostate Problems: Yes - PSYCHIATRIC Hx Substance Use: No - SURGICAL HISTORY Hx Coronary Stent: Yes - ANESTHESIA Hx Anesthesia: Yes Hx Anesthesia Reactions: No Hx Malignant Hyperthermia: No Meds Allergies/Adverse Reactions: Allergies Allergy/AdvReac Type Severity Reaction Status Date / Time No Known Allergies Allergy Verified 09/16/16 20:22 - Medications Medications: Current Medications Aspirin (Aspirin) 325 mg PO DAILY [facility] Last Admin: 05/08/17 10:15 Dose: 325 mg Folic Acid (Folic Acid) 1 mg PO DAILY [facility] Last Admin: 09/17/16 10:15 Dose: 1 mg Pantoprazole Sodium 80 mg/ (Sodium Chloride) 100 mls @ 10 mls/hr IV .Q10H [facility] PRN Reason: 8 MG/HR Last Admin: 09/17/16 19:50 Dose: 10 mls/hr Ceftriaxone Sodium 1 gm/ (Sodium Chloride) 100 mls @ 200 mls/hr IVPB Q12H [facility] Last Admin: 09/17/16 22:00 Dose: 200 mls/hr Insulin Glargine (Lantus) [address] [facility] Last Admin: 09/17/16 22:12 Dose: 10 units Insulin Human Regular (Novolin R) 0 unit SC [facility] PRN Reason: Protocol Last Admin: 09/17/16 22:18 Dose: Not Given Isosorbide Mononitrate (Imdur) 30 mg PO DAILY [facility] Last Admin: 09/17/16 10:15 Dose: 30 mg Magnesium Hydroxide (Milk Of Magnesia) 30 ml PO Q72 PRN PRN Reason: Constipation Metoprolol Succinate (Toprol Xl) 12.5 mg PO DAILY [facility] Last Admin: 09/17/16 10:51 Dose: 12.5 mg Pneumococcal Polyvalent Vaccine (Pneumovax 23 Vaccine) 0.5 ml IM .ONCE ONE Stop: 09/19/16 14:01 Ranolazine (Ranexa) 500 mg PO BID [facility] Last Admin: 09/17/16 18:00 Dose: 500 mg Rosuvastatin Calcium (Crestor) [address] [facility] Last Admin: 09/17/16 21:54 Dose: 20 mg Thiamine HCl (Vitamin B1 Tab) 100 mg PO DAILY [facility] Last Admin: 09/17/16 10:15 Dose: 100 mg Physical Exam - Constitutional Appears: Non-toxic, No Acute Distress - Head Exam Head Exam: ATRAUMATIC, NORMOCEPHALIC - Eye Exam Eye Exam: EOMI - ENT Exam ENT Exam: Mucous Membranes Moist - Neck Exam Neck exam: Positive for: Full Rom - Respiratory Exam Respiratory Exam: NORMAL BREATHING PATTERN. absent: Accessory Muscle Use, Respiratory Distress - GI/Abdominal Exam GI & Abdominal Exam: Soft. absent: Tenderness - Extremities Exam Additional comments: L distal dorsal forearm, firm to palpation, tender, distal pulses palpable, sensation and motor fxn intact Results - Vital Signs Recent Vital Signs: Last Vital Signs Temp 97.5 F L 09/17/16 23:45 Pulse 68 09/17/16 23:45 Resp 20 09/17/16 23:45 BP 130/68 09/17/16 23:45 Pulse Ox 98 09/17/16 23:45 - Labs Result Diagrams: 09/17/16 10:44 09/16/16 20:54 Labs: Laboratory Results - last 24 hr 09/17/16 09/17/16 09/17/16 06:32 10:44 11:47 WBC 1.8 L* RBC 3.39 L Hgb 8.8 L Hct 26.4 L MCV 77.9 L MCH 25.8 L MCHC 33.1 RDW 21.0 H Plt Count 138 MPV 9.0 Neut % (Auto) 16.6 L Lymph % (Auto) 56.9 H Garden % (Auto) 21.0 H Eos % (Auto) 4.9 H Baso % (Auto) 0.6 Neut # 0.3 L Lymph # 1.0 Garden # 0.4 Eos # 0.1 Baso # 0.0 Neutrophils % (Manual) 17 L Lymphocytes % (Manual) 65 H Monocytes % (Manual) 13 H Eosinophils % (Manual) 5 H Platelet Estimate Slightly decreased L Polychromasia Slight Hypochromasia (manual) Slight Anisocytosis (manual) Slight Microcytosis (manual) Slight Ovalocytes Slight POC Glucose (mg/dL) 128 H 183 H Procalcitonin 09/17/16 09/17/16 09/17/16 17:41 21:35 21:43 WBC RBC Hgb Hct MCV MCH MCHC RDW Plt Count MPV Neut % (Auto) Lymph % (Auto) Garden % (Auto) Eos % (Auto) Baso % (Auto) Neut # Lymph # Garden # Eos # Baso # Neutrophils % (Manual) Lymphocytes % (Manual) Monocytes % (Manual) Eosinophils % (Manual) Platelet Estimate Polychromasia Hypochromasia (manual) Anisocytosis (manual) Microcytosis (manual) Ovalocytes POC Glucose (mg/dL) 262 H 165 H Procalcitonin < 0.05 L Assessment & Plan - Assessment and Plan (Free Text) Assessment: 71M w. thrombosis of L cephalic forearm -warm compresses -keep hand elevated -will d/w attending Zemaitis PGY2
[2016-09-18 07:18] LABS: EOS # 0.1 K/uL (0.0-0.7)
[2016-09-18 07:40] LABS: BASO % 0.7 % (0.0-2.0); EOS % 5.1 % (0.0-4.0); HEMATOCRIT 23.8 % (35.0-51.0); LYMPH % 58.5 % (20.0-40.0); MEAN CELL VOLUME 77.8 fL (80.0-94.0); MEAN CORPUSCULAR HEMOGLOBIN 25.8 pg (27.0-31.0); MEAN CORPUSCULAR HGB CONC 33.2 g/dL (33.0-37.0); MEAN PLATELET VOLUME 9.1 fL (7.2-11.7); MONO # 0.4 K/uL (0.0-0.8); MONO % 21.1 % (0.0-10.0); NRBC % 0.1 % (0.0-2.0); PLATELET COUNT 122 K/uL (130-400); RED CELL DISTRIBUTION WIDTH 20.7 % (11.5-14.5)
[2016-09-18 07:45] LABS: WHITE BLOOD COUNT 1.7 K/uL (4.8-10.8)
[2016-09-18 08:10] LABS: CHLORIDE 102 mmol/L (98-107); POTASSIUM 3.9 mmol/L (3.6-5.2); SODIUM 137 mmol/L (132-148)
[2016-09-18 08:12] LABS: GFR AFRICAN-AMERICAN > 60
[2016-09-18 08:13] LABS: ALB/GLOB RATIO 0.8 (1.0-2.1); ALKALINE PHOSPHATASE 95 U/L (38-126); ALT/SGPT 11 U/L (21-72); AST/SGOT 13 U/L (17-59); BILIRUBIN,TOTAL 0.4 mg/dL (0.2-1.3); BLOOD UREA NITROGEN 19 mg/dL (9-20); CARBON DIOXIDE 26 mmol/L (22-30); GLUCOSE,RANDOM 137 mg/dL (75-110)
[2016-09-18 08:14] LABS: CALCIUM 8.4 mg/dl (8.6-10.4)
[2016-09-18] MEDS: (Novolin R) Insulin Human Regular 100 units/ml vial SC SCH ×4 (08:33→21:50)
[2016-09-18 09:45] LABS: EOSINOPHIL 6 % (0-4); NEUTROPHIL 18 % (50-75); TOTAL CELLS COUNTED 50
[2016-09-18 10:58] LABS: ERYTHROCYTE SEDIMENTATION RATE 103 mm/hr (0-15)
--- NOTE | 2016-09-18 11:07 | CP.PCM.PN ---
Subjective - Date & Time of Evaluation Date of Evaluation: 09/18/16 Time of Evaluation: 08:00 - Subjective Subjective: + left cephalic thrombosis neutropenic consider CT angio chest/ heme eval dr powers on board Objective - Vital Signs/Intake and Output Vital Signs (last 24 hours): Temp Pulse Resp BP Pulse Ox 97.6 F 82 20 138/76 98 09/18/16 08:18 09/18/16 08:18 09/18/16 08:18 09/18/16 09:24 09/18/16 08:18 Intake and Output: 09/18/16 09/18/16 06:59 18:59 Intake Total 380 Balance 380 - Medications Medications: Current Medications Aspirin (Aspirin) 325 mg PO DAILY [facility] Last Admin: 09/17/16 10:15 Dose: 325 mg Folic Acid (Folic Acid) 1 mg PO DAILY [facility] Last Admin: 09/17/16 10:15 Dose: 1 mg Pantoprazole Sodium 80 mg/ (Sodium Chloride) 100 mls @ 10 mls/hr IV .Q10H [facility] PRN Reason: 8 MG/HR Last Admin: 09/17/16 19:50 Dose: 10 mls/hr Ceftriaxone Sodium 1 gm/ (Sodium Chloride) 100 mls @ 200 mls/hr IVPB Q12H [facility] Last Admin: 09/17/16 22:00 Dose: 200 mls/hr Insulin Glargine (Lantus) 10 unit SC HS [facility] Last Admin: 09/17/16 22:12 Dose: 10 units Insulin Human Regular (Novolin R) 0 unit SC ACHS [facility] PRN Reason: Protocol Last Admin: 09/17/16 22:18 Dose: Not Given Isosorbide Mononitrate (Imdur) 30 mg PO DAILY [facility] Last Admin: 09/17/16 10:15 Dose: 30 mg Ketorolac Tromethamine (Toradol) 15 mg IVP Q6 PRN PRN Reason: moderate pain Magnesium Hydroxide (Milk Of Magnesia) 30 ml PO Q72 PRN PRN Reason: Constipation Metoprolol Succinate (Toprol Xl) 12.5 mg PO DAILY [facility] Last Admin: 09/17/16 10:51 Dose: 12.5 mg Pneumococcal Polyvalent Vaccine (Pneumovax 23 Vaccine) 0.5 ml IM .ONCE ONE Stop: 09/19/16 14:01 Ranolazine (Ranexa) 500 mg PO BID [facility] Last Admin: 09/17/16 18:00 Dose: 500 mg Rosuvastatin Calcium (Crestor) 20 mg PO HS [facility] Last Admin: 09/17/16 21:54 Dose: 20 mg Thiamine HCl (Vitamin B1 Tab) 100 mg PO DAILY [facility] Last Admin: 09/17/16 10:15 Dose: 100 mg - Labs Labs: 09/18/16 07:10 09/18/16 07:10 PT 13.8 SECONDS (9.7-12.2) H 09/16/16 20:54 INR 1.2 09/16/16 20:54 APTT 34 SECONDS (21-34) 09/16/16 20:54 - Constitutional Appears: Cachectic, Chronically Ill - Head Exam Head Exam: NORMOCEPHALIC - Eye Exam Eye Exam: absent: Scleral icterus - ENT Exam ENT Exam: Mucous Membranes Dry - Neck Exam Neck Exam: absent: Lymphadenopathy - Respiratory Exam Respiratory Exam: Decreased Breath Sounds - Cardiovascular Exam Cardiovascular Exam: REGULAR RHYTHM, +S1, +S2 - GI/Abdominal Exam GI & Abdominal Exam: Distended, Soft Assessment and Plan (1) Diabetes mellitus with ulcer of ankle Status: Acute (2) Infected ulcer of skin Status: Acute (3) PAD (peripheral artery disease) Status: Acute (4) CAD (coronary artery disease) Status: Chronic
[2016-09-18] MEDS: Pantoprazole 80 MG in Sodium Chloride 0.9% 100 ML IV SCH ×3 (11:26→22:02)
--- NOTE | 2016-09-18 11:26 | CP.PCM.PN ---
<Miguel Ángel Juarez - Last Filed: 09/18/16 17:33> Subjective - Date & Time of Evaluation Date of Evaluation: 09/18/16 Time of Evaluation: 10:00 - Subjective Subjective: PGY2 on medicine Dr. Ramírez service: Pt seen and examined at bedside this morning. Pt reports persistent painful left forearm. No episode of hemoptysis and denied coughing. Resting comfortably on bed. No other complaints. Objective - Vital Signs/Intake and Output Vital Signs (last 24 hours): Temp Pulse Resp BP Pulse Ox 97.6 F 82 20 138/76 98 09/18/16 08:18 09/18/16 08:18 09/18/16 08:18 09/18/16 09:24 09/18/16 08:18 Intake and Output: 09/18/16 09/18/16 06:59 18:59 Intake Total 380 Balance 380 - Medications Medications: Current Medications Aspirin (Aspirin) 325 mg PO DAILY [facility] Last Admin: 09/17/16 10:15 Dose: 325 mg Folic Acid (Folic Acid) 1 mg PO DAILY [facility] Last Admin: 09/17/16 10:15 Dose: 1 mg Pantoprazole Sodium 80 mg/ (Sodium Chloride) 100 mls @ 10 mls/hr IV .Q10H [facility] PRN Reason: 8 MG/HR Last Admin: 09/17/16 19:50 Dose: 10 mls/hr Ceftriaxone Sodium 1 gm/ (Sodium Chloride) 100 mls @ 200 mls/hr IVPB Q12H [facility] Last Admin: 09/17/16 22:00 Dose: 200 mls/hr Insulin Glargine (Lantus) 10 unit SC HS [facility] Last Admin: 09/17/16 22:12 Dose: 10 units Insulin Human Regular (Novolin R) 0 unit SC ACHS [facility] PRN Reason: Protocol Last Admin: 09/17/16 22:18 Dose: Not Given Isosorbide Mononitrate (Imdur) 30 mg PO DAILY [facility] Last Admin: 09/17/16 10:15 Dose: 30 mg Ketorolac Tromethamine (Toradol) 15 mg IVP Q6 PRN PRN Reason: moderate pain Magnesium Hydroxide (Milk Of Magnesia) 30 ml PO Q72 PRN PRN Reason: Constipation Metoprolol Succinate (Toprol Xl) 12.5 mg PO DAILY [facility] Last Admin: 09/17/16 10:51 Dose: 12.5 mg Pneumococcal Polyvalent Vaccine (Pneumovax 23 Vaccine) 0.5 ml IM .ONCE ONE Stop: 09/19/16 14:01 Ranolazine (Ranexa) 500 mg PO BID [facility] Last Admin: 09/17/16 18:00 Dose: 500 mg Rosuvastatin Calcium (Crestor) 20 mg PO HS [facility] Last Admin: 09/17/16 21:54 Dose: 20 mg Thiamine HCl (Vitamin B1 Tab) 100 mg PO DAILY [facility] Last Admin: 09/17/16 10:15 Dose: 100 mg - Labs Labs: 09/18/16 07:10 09/18/16 07:10 PT 13.8 SECONDS (9.7-12.2) H 09/16/16 20:54 INR 1.2 09/16/16 20:54 APTT 34 SECONDS (21-34) 09/16/16 20:54 - Constitutional Appears: Non-toxic, No Acute Distress, Chronically Ill - Head Exam Head Exam: NORMAL INSPECTION, NORMOCEPHALIC - Eye Exam Eye Exam: Normal appearance Pupil Exam: NORMAL ACCOMODATION - Respiratory Exam Respiratory Exam: Clear to Ausculation Bilateral, NORMAL BREATHING PATTERN. absent: Rhonchi, Wheezes - Cardiovascular Exam Cardiovascular Exam: REGULAR RHYTHM, +S1, +S2. absent: Gallop, Rubs - GI/Abdominal Exam GI & Abdominal Exam: Soft, Normal Bowel Sounds - Neurological Exam Neurological Exam: Alert, Awake, Oriented x3 - Psychiatric Exam Psychiatric exam: Normal Mood - Skin Skin Exam: Intact Assessment and Plan - Assessment and Plan (Free Text) Assessment: Hemoptysis 40ml red blood reported at residential per ED note. No more episodes in hospital. Dr. Ross and Dario consulted, help appreciated. CXR showed RUL infiltrate. Rocephin started 09/17. Protonix drip @8mg/hr. CT angio showed RUL pneumonia (see full report). Pt agreeable for bronchoscopy. Risks and benefits of bronchoscopy will be explained fully by Dr. oRss. NPO after midnight. Leukopenia Neutropenic precautions. Heme/onc dr. Nguyen consulted. Right foot infection Podiatry Dr. Ramirez consulted, help appreciated. Left arm swelling Venous doppler showed left arm cephalic vein thrombosis. Vascular Dr. Lugo consulted, help appreciated. Symptomatic treatment for now. DM Lantus 10U SC HS [facility] accucheck. Prophylactic measure Protonix drip. <Santiago Ramírez S - Last Filed: 09/29/16 09:24> Objective - Vital Signs/Intake and Output Vital Signs (last 24 hours): Temp Pulse Resp BP Pulse Ox 97.5 F L 70 20 155/85 H 98 09/29/16 08:10 09/29/16 08:10 09/29/16 08:10 09/29/16 08:10 09/29/16 08:10 Intake and Output: 09/29/16 09/29/16 06:59 18:59 Intake Total 840 Output Total 400 Balance 440 - Medications Medications: Current Medications Aspirin (Aspirin) 325 mg PO DAILY [facility] Last Admin: 09/28/16 09:43 Dose: 325 mg Folic Acid (Folic Acid) 1 mg PO DAILY [facility] Last Admin: 09/28/16 09:43 Dose: 1 mg Ceftriaxone Sodium 1 gm/ (Sodium Chloride) 100 mls @ 200 mls/hr IVPB Q12H [facility] Last Admin: 09/28/16 21:41 Dose: 200 mls/hr Insulin Glargine (Lantus) 10 unit SC [facility] Last Admin: 09/28/16 21:47 Dose: 10 units Insulin Human Regular (Novolin R) 0 unit SC [facility] PRN Reason: Protocol Last Admin: 09/29/16 07:59 Dose: Not Given Isosorbide Mononitrate (Imdur) 30 mg PO DAILY [facility] Last Admin: 09/28/16 09:42 Dose: 30 mg Lactic Acid (Lac-Hydrin 12% Lotion (225 G)) 0 gm EXT BID [facility] Last Admin: 09/28/16 18:28 Dose: 1 applic Magnesium Hydroxide (Milk Of Magnesia) 30 ml PO Q72 PRN PRN Reason: Constipation Metoprolol Succinate (Toprol Xl) 12.5 mg PO DAILY [facility] Last Admin: 09/28/16 09:45 Dose: 12.5 mg Pantoprazole Sodium (Protonix Ec Tab) 40 mg PO DAILY [facility] Last Admin: 09/28/16 09:42 Dose: 40 mg Ranolazine (Ranexa) 500 mg PO BID [facility] Last Admin: 09/28/16 18:38 Dose: 500 mg Rosuvastatin Calcium (Crestor) 20 mg PO [facility] Last Admin: 09/28/16 21:40 Dose: 20 mg Thiamine HCl (Vitamin B1 Tab) 100 mg PO DAILY [facility] Last Admin: 09/28/16 09:43 Dose: 100 mg - Labs Labs: 09/29/16 07:20 09/29/16 07:20 PT 13.8 SECONDS (9.7-12.2) H 09/16/16 20:54 INR 1.2 09/16/16 20:54 APTT 34 SECONDS (21-34) 09/16/16 20:54 Assessment and Plan (1) Gastrointestinal hemorrhage Status: Acute (2) Pneumonia Status: Acute (3) Anemia Status: Acute (4) Chest pain Status: Acute (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 Status: Acute (6) Diabetes mellitus, new onset Status: Acute (7) Infected ulcer of skin Status: Acute (8) PAD (peripheral artery disease) Status: Acute (9) Pancytopenia Status: Acute (10) Prophylactic measure Status: Acute (11) CAD (coronary artery disease) Status: Chronic (12) Diabetes mellitus Status: Chronic Attending/Attestation - Attestation I have personally seen and examined this patient.: Yes I have fully participated in the care of the patient.: Yes I have reviewed all pertinent clinical information, including history, physical exam and plan: Yes Notes (Text): case seen and discussed with staff and resident treatment as per monica also as per heme onc
[2016-09-18] MEDS: Ranolazine 500 mg Extended Release Tablets PO SCH ×2 (12:03→18:52)
[2016-09-18] MEDS: Metoprolol Succinate 12.5 mg XL PO SCH (12:27)
--- NOTE | 2016-09-18 13:07 | CP.PCM.PN ---
Subjective - Date & Time of Evaluation Date of Evaluation: 09/18/16 Time of Evaluation: 13:06 - Subjective Subjective: Patient seen and evaluated at bedside, NAD. Has bandage is place to the right lower leg. Patient denies n/v/f/c/sob at this time. Denies pain to the RLE at this time. Objective - Vital Signs/Intake and Output Vital Signs (last 24 hours): Temp Pulse Resp BP Pulse Ox 97.6 F 82 20 138/76 98 09/18/16 08:18 09/18/16 08:18 09/18/16 08:18 09/18/16 09:24 09/18/16 08:18 Intake and Output: 09/18/16 09/18/16 06:59 18:59 Intake Total 380 Balance 380 - Medications Medications: Current Medications Aspirin (Aspirin) 325 mg PO DAILY [facility] Last Admin: 09/18/16 11:25 Dose: 325 mg Folic Acid (Folic Acid) 1 mg PO DAILY [facility] Last Admin: 09/18/16 11:25 Dose: 1 mg Pantoprazole Sodium 80 mg/ (Sodium Chloride) 100 mls @ 10 mls/hr IV .Q10H [facility] PRN Reason: 8 MG/HR Last Admin: 09/18/16 11:26 Dose: 10 mls/hr Ceftriaxone Sodium 1 gm/ (Sodium Chloride) 100 mls @ 200 mls/hr IVPB Q12H [facility] Last Admin: 09/18/16 12:21 Dose: 200 mls/hr Insulin Glargine (Lantus) 10 unit SC HS [facility] Last Admin: 09/17/16 22:12 Dose: 10 units Insulin Human Regular (Novolin R) 0 unit SC ACHS [facility] PRN Reason: Protocol Last Admin: 09/18/16 12:37 Dose: 3 unit Isosorbide Mononitrate (Imdur) 30 mg PO DAILY [facility] Last Admin: 09/18/16 11:25 Dose: 30 mg Ketorolac Tromethamine (Toradol) 15 mg IVP Q6 PRN PRN Reason: moderate pain Magnesium Hydroxide (Milk Of Magnesia) 30 ml PO Q72 PRN PRN Reason: Constipation Metoprolol Succinate (Toprol Xl) 12.5 mg PO DAILY [facility] Last Admin: 09/18/16 12:27 Dose: 12.5 mg Pneumococcal Polyvalent Vaccine (Pneumovax 23 Vaccine) 0.5 ml IM .ONCE ONE Stop: 09/19/16 14:01 Ranolazine (Ranexa) 500 mg PO BID [facility] Last Admin: 09/18/16 12:03 Dose: 500 mg Rosuvastatin Calcium (Crestor) 20 mg PO HS [facility] Last Admin: 09/17/16 21:54 Dose: 20 mg Thiamine HCl (Vitamin B1 Tab) 100 mg PO DAILY [facility] Last Admin: 09/18/16 12:27 Dose: 100 mg - Labs Labs: 09/18/16 07:10 09/18/16 07:10 PT 13.8 SECONDS (9.7-12.2) H 09/16/16 20:54 INR 1.2 09/16/16 20:54 APTT 34 SECONDS (21-34) 09/16/16 20:54 - Constitutional Appears: Well, Non-toxic, No Acute Distress - Neurological Exam Neurological Exam: Oriented x3 - Psychiatric Exam Psychiatric exam: Normal Affect, Normal Mood - Additional Findings Additional findings: DERMATOLOGIC: Right lower extremity anterior leg ulceration, does not probe deep, granular base, mild serous drainage, no purulene, no undermining, no erythema or tracking present. The surrounding skin is intact. There is xerosis noted bilaterally. VASCULAR: DP/PT pulses 2/4, REPORTING DEVELOPER<3 seconds, skin temperature is normal NEUROLOGIC: Gross sensation intact, motor function intact ORTHOPEDIC: Mild pain on palpation to the wound site Assessment and Plan - Assessment and Plan (Free Text) Assessment: 71 year old male POD# 8 for right anterior leg wound debridement. Plan: Patient seen and evaluated, d/w attending Dr. Ramirez Patients dressing changed with xeroform, DSD Wound stable at this time Podiatry will continue to monitor while in house
--- NOTE | 2016-09-18 15:47 | CP.PCM.PN ---
Subjective - Date & Time of Evaluation Date of Evaluation: 09/18/16 Time of Evaluation: 15:45 - Subjective Subjective: left arm cephalic vein thrombosis The cephalic vein in the forearm is a superficial vein. Management is symptomatic and does not require systemic anticoagulation unless extended to deep veins -brachial or axillary veins. Recent imaging does not show any deep vein thrombosis Objective - Vital Signs/Intake and Output Vital Signs (last 24 hours): Temp Pulse Resp BP Pulse Ox 97.6 F 82 20 138/76 98 09/18/16 08:18 09/18/16 08:18 09/18/16 08:18 09/18/16 09:24 09/18/16 08:18 Intake and Output: 09/18/16 09/18/16 06:59 18:59 Intake Total 380 Output Total 800 Balance 380 -800 - Medications Medications: Current Medications Aspirin (Aspirin) 325 mg PO DAILY [facility] Last Admin: 09/18/16 11:25 Dose: 325 mg Folic Acid (Folic Acid) 1 mg PO DAILY [facility] Last Admin: 09/18/16 11:25 Dose: 1 mg Pantoprazole Sodium 80 mg/ (Sodium Chloride) 100 mls @ 10 mls/hr IV .Q10H [facility] PRN Reason: 8 MG/HR Last Admin: 09/18/16 11:26 Dose: 10 mls/hr Ceftriaxone Sodium 1 gm/ (Sodium Chloride) 100 mls @ 200 mls/hr IVPB Q12H [facility] Last Admin: 09/18/16 12:21 Dose: 200 mls/hr Insulin Glargine (Lantus) 10 unit SC HS [facility] Last Admin: 09/17/16 22:12 Dose: 10 units Insulin Human Regular (Novolin R) 0 unit SC ACHS [facility] PRN Reason: Protocol Last Admin: 09/18/16 12:37 Dose: 3 unit Isosorbide Mononitrate (Imdur) 30 mg PO DAILY [facility] Last Admin: 09/18/16 11:25 Dose: 30 mg Ketorolac Tromethamine (Toradol) 15 mg IVP Q6 PRN PRN Reason: moderate pain Magnesium Hydroxide (Milk Of Magnesia) 30 ml PO Q72 PRN PRN Reason: Constipation Metoprolol Succinate (Toprol Xl) 12.5 mg PO DAILY [facility] Last Admin: 09/18/16 12:27 Dose: 12.5 mg Pneumococcal Polyvalent Vaccine (Pneumovax 23 Vaccine) 0.5 ml IM .ONCE ONE Stop: 09/19/16 14:01 Ranolazine (Ranexa) 500 mg PO BID [facility] Last Admin: 09/18/16 12:03 Dose: 500 mg Rosuvastatin Calcium (Crestor) 20 mg PO HS [facility] Last Admin: 09/17/16 21:54 Dose: 20 mg Thiamine HCl (Vitamin B1 Tab) 100 mg PO DAILY [facility] Last Admin: 09/18/16 12:27 Dose: 100 mg - Labs Labs: 09/18/16 07:10 09/18/16 07:10 PT 13.8 SECONDS (9.7-12.2) H 09/16/16 20:54 INR 1.2 09/16/16 20:54 APTT 34 SECONDS (21-34) 09/16/16 20:54
--- NOTE | 2016-09-18 15:48 | CP.PCM.PN ---
Subjective - Date & Time of Evaluation Date of Evaluation: 09/18/16 Time of Evaluation: 11:00 - Subjective Subjective: clinically same Objective - Vital Signs/Intake and Output Vital Signs (last 24 hours): Temp Pulse Resp BP Pulse Ox 97.6 F 82 20 138/76 98 09/18/16 08:18 09/18/16 08:18 09/18/16 08:18 09/18/16 09:24 09/18/16 08:18 Intake and Output: 09/18/16 09/18/16 06:59 18:59 Intake Total 380 Output Total 800 Balance 380 -800 - Medications Medications: Current Medications Aspirin (Aspirin) 325 mg PO DAILY [facility] Last Admin: 09/18/16 11:25 Dose: 325 mg Folic Acid (Folic Acid) 1 mg PO DAILY [facility] Last Admin: 09/18/16 11:25 Dose: 1 mg Pantoprazole Sodium 80 mg/ (Sodium Chloride) 100 mls @ 10 mls/hr IV .Q10H [facility] PRN Reason: 8 MG/HR Last Admin: 09/18/16 11:26 Dose: 10 mls/hr Ceftriaxone Sodium 1 gm/ (Sodium Chloride) 100 mls @ 200 mls/hr IVPB Q12H [facility] Last Admin: 09/18/16 12:21 Dose: 200 mls/hr Insulin Glargine (Lantus) 10 unit SC HS [facility] Last Admin: 09/17/16 22:12 Dose: 10 units Insulin Human Regular (Novolin R) 0 unit SC ACHS [facility] PRN Reason: Protocol Last Admin: 09/18/16 12:37 Dose: 3 unit Isosorbide Mononitrate (Imdur) 30 mg PO DAILY [facility] Last Admin: 09/18/16 11:25 Dose: 30 mg Ketorolac Tromethamine (Toradol) 15 mg IVP Q6 PRN PRN Reason: moderate pain Magnesium Hydroxide (Milk Of Magnesia) 30 ml PO Q72 PRN PRN Reason: Constipation Metoprolol Succinate (Toprol Xl) 12.5 mg PO DAILY [facility] Last Admin: 09/18/16 12:27 Dose: 12.5 mg Pneumococcal Polyvalent Vaccine (Pneumovax 23 Vaccine) 0.5 ml IM .ONCE ONE Stop: 09/19/16 14:01 Ranolazine (Ranexa) 500 mg PO BID [facility] Last Admin: 09/18/16 12:03 Dose: 500 mg Rosuvastatin Calcium (Crestor) 20 mg PO [facility] Last Admin: 09/17/16 21:54 Dose: 20 mg Thiamine HCl (Vitamin B1 Tab) 100 mg PO DAILY [facility] Last Admin: 09/18/16 12:27 Dose: 100 mg - Labs Labs: 09/18/16 07:10 09/18/16 07:10 PT 13.8 SECONDS (9.7-12.2) H 09/16/16 20:54 INR 1.2 09/16/16 20:54 APTT 34 SECONDS (21-34) 09/16/16 20:54 - Constitutional Appears: Well - Head Exam Head Exam: ATRAUMATIC, NORMAL INSPECTION, NORMOCEPHALIC - Eye Exam Eye Exam: EOMI, Normal appearance, PERRL Pupil Exam: NORMAL ACCOMODATION, PERRL - ENT Exam ENT Exam: Mucous Membranes Moist, Normal Exam - Neck Exam Neck Exam: Full ROM, Normal Inspection. absent: Lymphadenopathy - Respiratory Exam Respiratory Exam: Decreased Breath Sounds - Cardiovascular Exam Cardiovascular Exam: REGULAR RHYTHM, +S1, +S2 - GI/Abdominal Exam GI & Abdominal Exam: Soft, Diminished Bowel Sounds - Rectal Exam Rectal Exam: Deferred Assessment and Plan (1) Coagulopathy Status: Acute (2) Dyspnea Status: Acute (3) MDS (myelodysplastic syndrome) Status: Acute (4) Neutropenia Status: Acute (5) Non-STEMI (non-ST elevated myocardial infarction) Status: Acute (6) Pneumonia Status: Acute (7) Sepsis Status: Acute (8) Anemia Status: Acute (9) Chest pain Status: Acute (10) Diabetes mellitus with ulcer of ankle Status: Acute (11) Diabetes mellitus, new onset Status: Acute (12) Gastrointestinal hemorrhage Status: Acute (13) Infected ulcer of skin Status: Acute (14) PAD (peripheral artery disease) Status: Acute (15) Pancytopenia Status: Acute (16) Pneumonia Status: Acute (17) Prophylactic measure Status: Acute (18) CAD (coronary artery disease) Status: Chronic (19) Diabetes mellitus Status: Chronic - Assessment and Plan (Free Text) Plan: Consult GI Consult ID Protonix Ceftriaxone Toprol Thiamine Chest x-ray positive with right upper lung infiltrate Follow-up with labs Continue monitor hemoglobin Positive left cephalic thrombosis Consider CT angiography chest
--- NOTE | 2016-09-18 17:32 | CP.PCM.PN ---
Subjective - Date & Time of Evaluation Date of Evaluation: 09/18/16 Time of Evaluation: 10:00 Objective - Vital Signs/Intake and Output Vital Signs (last 24 hours): Temp Pulse Resp BP Pulse Ox 97.9 F 78 20 151/69 H 98 09/18/16 17:11 09/18/16 17:11 09/18/16 17:11 09/18/16 17:11 09/18/16 17:11 Intake and Output: 09/18/16 09/18/16 06:59 18:59 Intake Total 380 Output Total 800 Balance 380 -800 - Medications Medications: Current Medications Aspirin (Aspirin) 325 mg PO DAILY [facility] Last Admin: 09/18/16 11:25 Dose: 325 mg Folic Acid (Folic Acid) 1 mg PO DAILY [facility] Last Admin: 09/18/16 11:25 Dose: 1 mg Pantoprazole Sodium 80 mg/ (Sodium Chloride) 100 mls @ 10 mls/hr IV .Q10H [facility] PRN Reason: 8 MG/HR Last Admin: 09/18/16 11:26 Dose: 10 mls/hr Ceftriaxone Sodium 1 gm/ (Sodium Chloride) 100 mls @ 200 mls/hr IVPB Q12H [facility] Last Admin: 09/18/16 12:21 Dose: 200 mls/hr Insulin Glargine (Lantus) 10 unit SC HS [facility] Last Admin: 09/17/16 22:12 Dose: 10 units Insulin Human Regular (Novolin R) 0 unit SC ACHS [facility] PRN Reason: Protocol Last Admin: 09/18/16 12:37 Dose: 3 unit Isosorbide Mononitrate (Imdur) 30 mg PO DAILY [facility] Last Admin: 09/18/16 11:25 Dose: 30 mg Ketorolac Tromethamine (Toradol) 15 mg IVP Q6 PRN PRN Reason: moderate pain Magnesium Hydroxide (Milk Of Magnesia) 30 ml PO Q72 PRN PRN Reason: Constipation Metoprolol Succinate (Toprol Xl) 12.5 mg PO DAILY [facility] Last Admin: 09/18/16 12:27 Dose: 12.5 mg Pneumococcal Polyvalent Vaccine (Pneumovax 23 Vaccine) 0.5 ml IM .ONCE ONE Stop: 09/19/16 14:01 Ranolazine (Ranexa) 500 mg PO BID [facility] Last Admin: 09/18/16 12:03 Dose: 500 mg Rosuvastatin Calcium (Crestor) 20 mg PO HS [facility] Last Admin: 09/17/16 21:54 Dose: 20 mg Thiamine HCl (Vitamin B1 Tab) 100 mg PO DAILY [facility] Last Admin: 09/18/16 12:27 Dose: 100 mg - Labs Labs: 09/18/16 07:10 09/18/16 07:10 PT 13.8 SECONDS (9.7-12.2) H 09/16/16 20:54 INR 1.2 09/16/16 20:54 APTT 34 SECONDS (21-34) 09/16/16 20:54
--- NOTE | 2016-09-18 17:47 | CP.PCM.PN ---
Subjective - Date & Time of Evaluation Date of Evaluation: 09/18/16 Time of Evaluation: 07:00 - Subjective Subjective: Patient seen and examined. Sitting comfortably in no acute distress Still complaining of slight cough but no hemoptysis CAT scan of the chest consistent with right upper lung infiltrate with normal calcitonin level Objective - Vital Signs/Intake and Output Vital Signs (last 24 hours): Temp Pulse Resp BP Pulse Ox 97.9 F 78 20 151/69 H 98 09/18/16 17:11 09/18/16 17:11 09/18/16 17:11 09/18/16 17:11 09/18/16 17:11 Intake and Output: 09/18/16 09/18/16 06:59 18:59 Intake Total 380 Output Total 800 Balance 380 -800 - Medications Medications: Current Medications Aspirin (Aspirin) 325 mg PO DAILY [facility] Last Admin: 09/18/16 11:25 Dose: 325 mg Folic Acid (Folic Acid) 1 mg PO DAILY [facility] Last Admin: 09/18/16 11:25 Dose: 1 mg Pantoprazole Sodium 80 mg/ (Sodium Chloride) 100 mls @ 10 mls/hr IV .Q10H [facility] PRN Reason: 8 MG/HR Last Admin: 09/18/16 11:26 Dose: 10 mls/hr Ceftriaxone Sodium 1 gm/ (Sodium Chloride) 100 mls @ 200 mls/hr IVPB Q12H [facility] Last Admin: 09/18/16 12:21 Dose: 200 mls/hr Insulin Glargine (Lantus) 10 unit SC HS [facility] Last Admin: 09/17/16 22:12 Dose: 10 units Insulin Human Regular (Novolin R) 0 unit SC ACHS [facility] PRN Reason: Protocol Last Admin: 09/18/16 17:34 Dose: Not Given Isosorbide Mononitrate (Imdur) 30 mg PO DAILY [facility] Last Admin: 09/18/16 11:25 Dose: 30 mg Ketorolac Tromethamine (Toradol) 15 mg IVP Q6 PRN PRN Reason: moderate pain Magnesium Hydroxide (Milk Of Magnesia) 30 ml PO Q72 PRN PRN Reason: Constipation Metoprolol Succinate (Toprol Xl) 12.5 mg PO DAILY [facility] Last Admin: 09/18/16 12:27 Dose: 12.5 mg Pneumococcal Polyvalent Vaccine (Pneumovax 23 Vaccine) 0.5 ml IM .ONCE ONE Stop: 09/19/16 14:01 Ranolazine (Ranexa) 500 mg PO BID [facility] Last Admin: 09/18/16 12:03 Dose: 500 mg Rosuvastatin Calcium (Crestor) 20 mg PO HS [facility] Last Admin: 09/17/16 21:54 Dose: 20 mg Thiamine HCl (Vitamin B1 Tab) 100 mg PO DAILY [facility] Last Admin: 09/18/16 12:27 Dose: 100 mg - Labs Labs: 09/18/16 07:10 09/18/16 07:10 PT 13.8 SECONDS (9.7-12.2) H 09/16/16 20:54 INR 1.2 09/16/16 20:54 APTT 34 SECONDS (21-34) 09/16/16 20:54 - Head Exam Head Exam: ATRAUMATIC, NORMOCEPHALIC - Eye Exam Eye Exam: Normal appearance - ENT Exam ENT Exam: Mucous Membranes Moist - Neck Exam Neck Exam: Normal Inspection - Respiratory Exam Respiratory Exam: Clear to Ausculation Bilateral - Cardiovascular Exam Cardiovascular Exam: REGULAR RHYTHM - GI/Abdominal Exam GI & Abdominal Exam: Soft, Normal Bowel Sounds Assessment and Plan (1) Pneumonia Assessment & Plan: A right upper lung infiltrate. Normal pro-calcitonin level and history of hemoptysis, consider respiratory isolation Fiberoptic bronchoscopy with BAL and biopsy Continue antibiotics Status: Acute
--- NOTE | 2016-09-18 20:40 | CP.PCM.CON ---
History of Present Illness - History of Present Illness History of Present Illness: Hematology Consult Referred by Dr. Ramírez for pancytopenia HPI-Mr Avila is 71 y/o M with h/o DM, CAD s/p stent, PVD, chronic right medial malleolus ulcer, CKD who was admitted with hemoptysis. He was recently admission with wound infection and treated with antibiotics. His hemoptysis has resolved since then. CT Chest showed patchy areas of consolidation in right upper lobe with an abnormal density filling right upper lobe bronchus and extending to right mainstem bronchus. No evidence of PE. There was 2.2 cm right hilar lymph node. He was also found to have slight inflammation of left forearm. US doppler showed acute thrombosis of left forearm cephalic vein. He was seen by Dr. Kam and is planned for bronchoscopy tomorrow. Review of his blood work shows pancytopenia. WBC has fluctuated between 1.7 to 3 since last admission with neutropenia. He also has microcytic anemia with Hb between 8 -10 and mild thrombocytopenia. Stool ocult was negative. He complains of fatigue currently. Denies SOB. Has slight cough, denies hemoptysis. His appetite has been fair and denies weight loss. Denies altered bowel movement or urinary complaints. Denies fever, chills. He has h/o former smoking and alcohol abuse. Review of Systems - Review of Systems All systems: reviewed and no additional remarkable complaints except Review of Systems: as in HPI Past Patient History - Tetanus Immunizations Tetanus Immunization: Unknown - Past Medical History & Family History Past Medical History?: No - Past Social History Smoking Status: Former Smoker - CARDIAC Hx Cardiac Disorders: Yes (DC, Coronary Stent) Hx Hypercholesterolemia: Yes Hx Hypertension: Yes - PULMONARY Hx Respiratory Disorders: No - NEUROLOGICAL Hx Paralysis: No - HEENT Hx HEENT Problems: No - RENAL Hx Chronic Kidney Disease: Yes Hx Kidney Stones: Yes - ENDOCRINE/METABOLIC Hx Diabetes Mellitus Type 2: Yes - HEMATOLOGICAL/ONCOLOGICAL Hx Anemia: Yes - INTEGUMENTARY Hx Dermatological Problems: Yes Hx Cellulitis: Yes - MUSCULOSKELETAL/RHEUMATOLOGICAL Hx Musculoskeletal Disorders: Yes Hx Back Pain: Yes Hx Falls: Yes Hx Osteomyelitis: Yes Hx Spinal Stenosis: Yes - GASTROINTESTINAL Hx Gastrointestinal Disorders: No - GENITOURINARY/GYNECOLOGICAL Hx Genitourinary Disorders: No Hx Prostate Problems: Yes - PSYCHIATRIC Hx Substance Use: No - SURGICAL HISTORY Hx Coronary Stent: Yes - ANESTHESIA Hx Anesthesia: Yes Hx Anesthesia Reactions: No Hx Malignant Hyperthermia: No Meds Allergies/Adverse Reactions: Allergies Allergy/AdvReac Type Severity Reaction Status Date / Time No Known Allergies Allergy Verified 09/16/16 20:22 - Medications Medications: Current Medications Aspirin (Aspirin) 325 mg PO DAILY [facility] Last Admin: 09/18/16 11:25 Dose: 325 mg Ferric Sodium Gluconate Complex (Ferrlecit) 125 mg IVPB DAILY [facility] Stop: 09/22/16 10:01 Folic Acid (Folic Acid) 1 mg PO DAILY [facility] Last Admin: 09/18/16 11:25 Dose: 1 mg Pantoprazole Sodium 80 mg/ (Sodium Chloride) 100 mls @ 10 mls/hr IV .Q10H [facility] PRN Reason: 8 MG/HR Last Admin: 09/18/16 15:45 Dose: Not Given Ceftriaxone Sodium 1 gm/ (Sodium Chloride) 100 mls @ 200 mls/hr IVPB Q12H [facility] Last Admin: 09/18/16 12:21 Dose: 200 mls/hr Insulin Glargine (Lantus) 10 unit SC [facility] Last Admin: 09/17/16 22:12 Dose: 10 units Insulin Human Regular (Novolin R) 0 unit SC [facility] PRN Reason: Protocol Last Admin: 09/18/16 17:34 Dose: Not Given Isosorbide Mononitrate (Imdur) 30 mg PO DAILY [facility] Last Admin: 09/18/16 11:25 Dose: 30 mg Ketorolac Tromethamine (Toradol) 15 mg IVP Q6 PRN PRN Reason: moderate pain Magnesium Hydroxide (Milk Of Magnesia) 30 ml PO Q72 PRN PRN Reason: Constipation Metoprolol Succinate (Toprol Xl) 12.5 mg PO DAILY [facility] Last Admin: 09/18/16 12:27 Dose: 12.5 mg Pneumococcal Polyvalent Vaccine (Pneumovax 23 Vaccine) 0.5 ml IM .ONCE ONE Stop: 09/19/16 14:01 Ranolazine (Ranexa) 500 mg PO BID [facility] Last Admin: 09/18/16 18:52 Dose: 500 mg Rosuvastatin Calcium (Crestor) 20 mg PO HS [facility] Last Admin: 09/17/16 21:54 Dose: 20 mg Thiamine HCl (Vitamin B1 Tab) 100 mg PO DAILY [facility] Last Admin: 09/18/16 12:27 Dose: 100 mg Physical Exam - Head Exam Head Exam: ATRAUMATIC, NORMAL INSPECTION - Eye Exam Eye Exam: EOMI, PERRL - ENT Exam ENT Exam: Mucous Membranes Moist - Neck Exam Neck exam: Negative for: Lymphadenopathy - Respiratory Exam Respiratory Exam: Clear to Auscultation Bilateral - Cardiovascular Exam Cardiovascular Exam: REGULAR RHYTHM - GI/Abdominal Exam GI & Abdominal Exam: Normal Bowel Sounds, Soft. absent: Distended, Organomegaly , Tenderness - Extremities Exam Extremities exam: Negative for: pedal edema Additional comments: left forearm erythema and slight tenderness Results - Vital Signs Recent Vital Signs: Last Vital Signs Temp 97.9 F 09/18/16 17:11 Pulse 78 09/18/16 17:11 Resp 20 09/18/16 17:11 BP 151/69 H 09/18/16 17:11 Pulse Ox 98 09/18/16 17:11 - Labs Result Diagrams: 09/18/16 07:10 09/18/16 07:10 Labs: Laboratory Results - last 24 hr 09/17/16 09/17/16 09/18/16 10:00 21:35 07:10 WBC 1.7 L* RBC 3.06 L Hgb 7.9 L Hct 23.8 L MCV 77.8 L MCH 25.8 L MCHC 33.2 RDW 20.7 H Plt Count 122 L MPV 9.1 Neut % (Auto) 14.6 L Lymph % (Auto) 58.5 H [place] % (Auto) 21.1 H Eos % (Auto) 5.1 H Baso % (Auto) 0.7 Neut # 0.2 L Lymph # 1.0 [place] # 0.4 Eos # 0.1 Baso # 0.0 Neutrophils % (Manual) 18 L Band Neutrophils % 2 Lymphocytes % (Manual) 64 H Monocytes % (Manual) 10 Eosinophils % (Manual) 6 H Platelet Estimate Slightly decreased L Hypochromasia (manual) Slight Poikilocytosis (manual Slight Anisocytosis (manual) Slight ESR 103 H Sodium Potassium Chloride Carbon Dioxide Anion Gap BUN Creatinine Est GFR ( Amer) Est GFR (Non-Af Amer) POC Glucose (mg/dL) 165 H Random Glucose Calcium Total Bilirubin AST ALT Alkaline Phosphatase Total Protein Albumin Globulin Albumin/Globulin Ratio Procalcitonin < 0.05 L 09/18/16 09/18/16 09/18/16 07:10 07:49 11:21 WBC RBC Hgb Hct MCV MCH MCHC RDW Plt Count MPV Neut % (Auto) Lymph % (Auto) [place] % (Auto) Eos % (Auto) Baso % (Auto) Neut # Lymph # [place] # Eos # Baso # Neutrophils % (Manual) Band Neutrophils % Lymphocytes % (Manual) Monocytes % (Manual) Eosinophils % (Manual) Platelet Estimate Hypochromasia (manual) Poikilocytosis (manual Anisocytosis (manual) ESR Sodium 137 Potassium 3.9 Chloride 102 Carbon Dioxide 26 Anion Gap 13 BUN 19 Creatinine 1.2 Est GFR ( Amer) > 60 Est GFR (Non-Af Amer) 60 POC Glucose (mg/dL) 145 H 279 H Random Glucose 137 H Calcium 8.4 L Total Bilirubin 0.4 AST 13 L ALT 11 L D Alkaline Phosphatase 95 Total Protein 7.0 Albumin 3.2 L Globulin 3.8 Albumin/Globulin Ratio 0.8 L Procalcitonin 09/18/16 16:53 WBC RBC Hgb Hct MCV MCH MCHC RDW Plt Count MPV Neut % (Auto) Lymph % (Auto) [place] % (Auto) Eos % (Auto) Baso % (Auto) Neut # Lymph # [place] # Eos # Baso # Neutrophils % (Manual) Band Neutrophils % Lymphocytes % (Manual) Monocytes % (Manual) Eosinophils % (Manual) Platelet Estimate Hypochromasia (manual) Poikilocytosis (manual Anisocytosis (manual) ESR Sodium Potassium Chloride Carbon Dioxide Anion Gap BUN Creatinine Est GFR ( Amer) Est GFR (Non-Af Amer) POC Glucose (mg/dL) 150 H Random Glucose Calcium Total Bilirubin AST ALT Alkaline Phosphatase Total Protein Albumin Globulin Albumin/Globulin Ratio Procalcitonin Assessment & Plan - Assessment and Plan (Free Text) Assessment: Pancyctopenia Review of prior blood work was unremarkable except for iron deficiency. He could have bone marrow suppression from medical comorbidities, current infection or nutritional deficiency (prior h/o alcohol abuse). We should also rule out other bone marrow pathology e.g. MDS if his blood counts do not recover Will start him on IV Ferrlecit. Continue to monitor CBC daily. Will also follow up results of bronchoscopy. Will send flow cytometry. If his blood counts do not recover once he is clinically stable, we could consider bone marrow aspiration/ biopsy. Thank you for the consult Steve Wendy - Date & Time Date: 09/18/16 Time: 18:40
[2016-09-18] MEDS: (Lantus) Insulin Glargine, Recombinant SC SCH (21:50)
[2016-09-19] MEDS: Pantoprazole 80 MG in Sodium Chloride 0.9% 100 ML IV SCH ×4 (01:45→21:50)
[2016-09-19 07:15] LABS: EOS # 0.1 K/uL (0.0-0.7); MONO # 0.3 K/uL (0.0-0.8); RED CELL DISTRIBUTION WIDTH 20.9 % (11.5-14.5)
[2016-09-19 07:36] LABS: BASO % 0.9 % (0.0-2.0); HEMATOCRIT 23.9 % (35.0-51.0); MEAN CELL VOLUME 77.5 fL (80.0-94.0); MEAN CORPUSCULAR HEMOGLOBIN 25.8 pg (27.0-31.0); MEAN CORPUSCULAR HGB CONC 33.2 g/dL (33.0-37.0); MEAN PLATELET VOLUME 9.3 fL (7.2-11.7); MONO % 19.7 % (0.0-10.0); NRBC % 0.2 % (0.0-2.0)
[2016-09-19 07:38] LABS: WHITE BLOOD COUNT 1.7 K/uL (4.8-10.8)
[2016-09-19] MEDS: (Novolin R) Insulin Human Regular 100 units/ml vial SC SCH ×4 (08:03→22:00)
[2016-09-19 08:22] LABS: ALB/GLOB RATIO 0.8 (1.0-2.1); ALKALINE PHOSPHATASE 88 U/L (38-126); ALT/SGPT 11 U/L (21-72); AST/SGOT 14 U/L (17-59); BILIRUBIN,TOTAL 0.5 mg/dL (0.2-1.3); BLOOD UREA NITROGEN 19 mg/dL (9-20); CALCIUM 8.7 mg/dl (8.6-10.4); CARBON DIOXIDE 27 mmol/L (22-30); CHLORIDE 103 mmol/L (98-107); GFR AFRICAN-AMERICAN > 60; GLUCOSE,RANDOM 143 mg/dL (75-110); SODIUM 138 mmol/L (132-148); TOTAL PROTEIN 7.2 g/dL (6.3-8.3)
[2016-09-19] MEDS: Ferric Sodium Gluconat Complex 62.5 mg/5 ml Vial IVPB SCH (09:46)
[2016-09-19] MEDS: Ranolazine 500 mg Extended Release Tablets PO SCH ×2 (09:47→17:58)
[2016-09-19] MEDS: Metoprolol Succinate 12.5 mg XL PO SCH (09:51)
--- NOTE | 2016-09-19 09:57 | CP.PCM.PN ---
Subjective - Date & Time of Evaluation Date of Evaluation: 09/19/16 Time of Evaluation: 09:55 - Subjective Subjective: Patient seen and evaluated at bedside with attending, Dr. Ramirez. Patient is resting comfortable, NAD. Patient has bandage in place to the right lower extremity. He denies pain to the wound site at this time. Objective - Vital Signs/Intake and Output Vital Signs (last 24 hours): Temp Pulse Resp BP Pulse Ox 98.4 F 67 20 148/63 96 09/19/16 09:06 09/19/16 09:06 09/19/16 09:06 09/19/16 09:06 09/19/16 09:06 Intake and Output: 09/19/16 09/19/16 06:59 18:59 Intake Total 810 Output Total 1750 Balance -940 - Medications Medications: Current Medications Aspirin (Aspirin) 325 mg PO DAILY [facility] Last Admin: 09/19/16 09:47 Dose: Not Given Ferric Sodium Gluconate Complex (Ferrlecit) 125 mg IVPB DAILY [facility] Stop: 09/22/16 10:01 Last Admin: 09/19/16 09:46 Dose: 125 mg Folic Acid (Folic Acid) 1 mg PO DAILY [facility] Last Admin: 09/19/16 09:47 Dose: Not Given Pantoprazole Sodium 80 mg/ (Sodium Chloride) 100 mls @ 10 mls/hr IV .Q10H [facility] PRN Reason: 8 MG/HR Last Admin: 09/18/16 22:02 Dose: 10 mls/hr Ceftriaxone Sodium 1 gm/ (Sodium Chloride) 100 mls @ 200 mls/hr IVPB Q12H [facility] Last Admin: 09/19/16 09:44 Dose: 200 mls/hr Insulin Glargine (Lantus) 10 unit SC HS [facility] Last Admin: 09/18/16 21:50 Dose: 10 units Insulin Human Regular (Novolin R) 0 unit SC ACHS [facility] PRN Reason: Protocol Last Admin: 09/19/16 08:03 Dose: Not Given Isosorbide Mononitrate (Imdur) 30 mg PO DAILY [facility] Last Admin: 09/19/16 09:51 Dose: 30 mg Ketorolac Tromethamine (Toradol) 15 mg IVP Q6 PRN PRN Reason: moderate pain Magnesium Hydroxide (Milk Of Magnesia) 30 ml PO Q72 PRN PRN Reason: Constipation Metoprolol Succinate (Toprol Xl) 12.5 mg PO DAILY [facility] Last Admin: 09/19/16 09:51 Dose: 12.5 mg Pneumococcal Polyvalent Vaccine (Pneumovax 23 Vaccine) 0.5 ml IM .ONCE ONE Stop: 09/19/16 14:01 Ranolazine (Ranexa) 500 mg PO BID [facility] Last Admin: 09/19/16 09:47 Dose: Not Given Rosuvastatin Calcium (Crestor) 20 mg PO HS [facility] Last Admin: 09/18/16 22:40 Dose: 20 mg Thiamine HCl (Vitamin B1 Tab) 100 mg PO DAILY [facility] Last Admin: 09/19/16 09:47 Dose: Not Given - Labs Labs: 09/19/16 07:00 09/19/16 07:00 PT 13.8 SECONDS (9.7-12.2) H 09/16/16 20:54 INR 1.2 09/16/16 20:54 APTT 34 SECONDS (21-34) 09/16/16 20:54 - Constitutional Appears: Non-toxic, No Acute Distress, Chronically Ill - Neurological Exam Neurological Exam: Oriented x3 - Psychiatric Exam Psychiatric exam: Normal Affect, Normal Mood - Additional Findings Additional findings: DERMATOLOGIC: Right lower extremity anterior leg ulceration, does not probe deep, granular base, mild serous drainage, no purulene, no undermining, no erythema or tracking present. The surrounding skin is intact. There is xerosis noted bilaterally. VASCULAR: DP/PT pulses 2/4, UNIT MANAGER<3 seconds, skin temperature is normal NEUROLOGIC: Gross sensation intact, motor function intact ORTHOPEDIC: Mild pain on palpation to the wound site Assessment and Plan - Assessment and Plan (Free Text) Assessment: 71 year old male POD #9 for right anterior leg wound debridement. Plan: Patient seen and evaluated with attending, Dr. Lundberg Patients right leg dressed with xeroform, DSD Patient stable per podiatry at this time Podiatry will continue to follow while in house
--- NOTE | 2016-09-19 10:38 | CP.PCM.PN ---
<Miguel Ángel Juarez - Last Filed: 09/19/16 15:12> Subjective - Date & Time of Evaluation Date of Evaluation: 09/19/16 Time of Evaluation: 09:00 - Subjective Subjective: PGY2 on medicine on Dr. Ramírez service: Pt seen and examined at bedside this morning. Pt states he ate a piece of sandwich at 3am, though denied by overnight RN. Pt scheduled to have bronchoscopy this afternoon per RN. No acute events overnight, and pt has no other complaints at the moment. Objective - Vital Signs/Intake and Output Vital Signs (last 24 hours): Temp Pulse Resp BP Pulse Ox 98.4 F 67 20 148/63 96 09/19/16 09:06 09/19/16 09:06 09/19/16 09:06 09/19/16 09:06 09/19/16 09:06 Intake and Output: 09/19/16 09/19/16 06:59 18:59 Intake Total 810 Output Total 1750 Balance -940 - Medications Medications: Current Medications Aspirin (Aspirin) 325 mg PO DAILY [facility] Last Admin: 09/19/16 09:47 Dose: Not Given Ferric Sodium Gluconate Complex (Ferrlecit) 125 mg IVPB DAILY [facility] Stop: 09/22/16 10:01 Last Admin: 09/19/16 09:46 Dose: 125 mg Folic Acid (Folic Acid) 1 mg PO DAILY [facility] Last Admin: 09/19/16 09:47 Dose: Not Given Pantoprazole Sodium 80 mg/ (Sodium Chloride) 100 mls @ 10 mls/hr IV .Q10H [facility] PRN Reason: 8 MG/HR Last Admin: 09/19/16 09:54 Dose: 10 mls/hr Ceftriaxone Sodium 1 gm/ (Sodium Chloride) 100 mls @ 200 mls/hr IVPB Q12H [facility] Last Admin: 09/19/16 09:44 Dose: 200 mls/hr Insulin Glargine (Lantus) 10 unit SC HS [facility] Last Admin: 09/18/16 21:50 Dose: 10 units Insulin Human Regular (Novolin R) 0 unit SC ACHS [facility] PRN Reason: Protocol Last Admin: 09/19/16 08:03 Dose: Not Given Isosorbide Mononitrate (Imdur) 30 mg PO DAILY [facility] Last Admin: 09/19/16 09:51 Dose: 30 mg Ketorolac Tromethamine (Toradol) 15 mg IVP Q6 PRN PRN Reason: moderate pain Magnesium Hydroxide (Milk Of Magnesia) 30 ml PO Q72 PRN PRN Reason: Constipation Metoprolol Succinate (Toprol Xl) 12.5 mg PO DAILY [facility] Last Admin: 09/19/16 09:51 Dose: 12.5 mg Pneumococcal Polyvalent Vaccine (Pneumovax 23 Vaccine) 0.5 ml IM .ONCE ONE Stop: 09/19/16 14:01 Ranolazine (Ranexa) 500 mg PO BID [facility] Last Admin: 09/19/16 09:47 Dose: Not Given Rosuvastatin Calcium (Crestor) 20 mg PO HS [facility] Last Admin: 09/18/16 22:40 Dose: 20 mg Thiamine HCl (Vitamin B1 Tab) 100 mg PO DAILY [facility] Last Admin: 09/19/16 09:47 Dose: Not Given - Labs Labs: 09/19/16 07:00 09/19/16 07:00 PT 13.8 SECONDS (9.7-12.2) H 09/16/16 20:54 INR 1.2 09/16/16 20:54 APTT 34 SECONDS (21-34) 09/16/16 20:54 - Constitutional Appears: Non-toxic, No Acute Distress - Head Exam Head Exam: NORMOCEPHALIC - Eye Exam Eye Exam: Normal appearance - ENT Exam ENT Exam: Mucous Membranes Moist - Respiratory Exam Respiratory Exam: Clear to Ausculation Bilateral, NORMAL BREATHING PATTERN. absent: Rhonchi, Wheezes - Cardiovascular Exam Cardiovascular Exam: REGULAR RHYTHM, +S1, +S2. absent: Gallop, Rubs - GI/Abdominal Exam GI & Abdominal Exam: Soft, Normal Bowel Sounds - Extremities Exam Additional comments: left forearm slightly warm and tender to palpation - Neurological Exam Neurological Exam: Alert, Awake, Oriented x3 - Psychiatric Exam Psychiatric exam: Normal Mood - Skin Skin Exam: Intact Assessment and Plan - Assessment and Plan (Free Text) Assessment: Hemoptysis 40ml red blood reported at detention per ED note. No more episodes in hospital. Dr. Ross and Dario consulted, help appreciated. CXR showed RUL infiltrate. Procalcitonin level low. Rocephin started 09/17. CT angio showed RUL pneumonia (see full report). Protonix drip @8mg/hr. Pending quantiferon gold test. Pt for bronchoscopy today. Pancytopenia Neutropenic precautions. Heme/onc dr. Nguyen consulted. IV Ferrlecit. Possible bone marrow biopsy Right foot infection Podiatry Dr. Ramirez consulted, help appreciated. Left arm swelling Venous doppler showed left arm cephalic vein thrombosis. Vascular Dr. Lugo consulted, help appreciated. Symptomatic treatment for now. DM Lantus 10U SC HS RISS, accucheck. Prophylactic measure Protonix drip. SCD and HepSQ contraindicated. Management per Dr. Ramírez. <Santiago Ramírez S - Last Filed: 09/29/16 09:23> Objective - Vital Signs/Intake and Output Vital Signs (last 24 hours): Temp Pulse Resp BP Pulse Ox 97.5 F L 70 20 155/85 H 98 09/29/16 08:10 09/29/16 08:10 09/29/16 08:10 09/29/16 08:10 09/29/16 08:10 Intake and Output: 09/29/16 09/29/16 06:59 18:59 Intake Total 840 Output Total 400 Balance 440 - Medications Medications: Current Medications Aspirin (Aspirin) 325 mg PO DAILY [facility] Last Admin: 09/28/16 09:43 Dose: 325 mg Folic Acid (Folic Acid) 1 mg PO DAILY [facility] Last Admin: 09/28/16 09:43 Dose: 1 mg Ceftriaxone Sodium 1 gm/ (Sodium Chloride) 100 mls @ 200 mls/hr IVPB Q12H [facility] Last Admin: 09/28/16 21:41 Dose: 200 mls/hr Insulin Glargine (Lantus) 10 unit SC [facility] Last Admin: 09/28/16 21:47 Dose: 10 units Insulin Human Regular (Novolin R) 0 unit SC ACHS [facility] PRN Reason: Protocol Last Admin: 09/29/16 07:59 Dose: Not Given Isosorbide Mononitrate (Imdur) 30 mg PO DAILY [facility] Last Admin: 09/28/16 09:42 Dose: 30 mg Lactic Acid (Lac-Hydrin 12% Lotion (225 G)) 0 gm EXT BID [facility] Last Admin: 09/28/16 18:28 Dose: 1 applic Magnesium Hydroxide (Milk Of Magnesia) 30 ml PO Q72 PRN PRN Reason: Constipation Metoprolol Succinate (Toprol Xl) 12.5 mg PO DAILY [facility] Last Admin: 09/28/16 09:45 Dose: 12.5 mg Pantoprazole Sodium (Protonix Ec Tab) 40 mg PO DAILY [facility] Last Admin: 09/28/16 09:42 Dose: 40 mg Ranolazine (Ranexa) 500 mg PO BID [facility] Last Admin: 09/28/16 18:38 Dose: 500 mg Rosuvastatin Calcium (Crestor) 20 mg PO HS [facility] Last Admin: 09/28/16 21:40 Dose: 20 mg Thiamine HCl (Vitamin B1 Tab) 100 mg PO DAILY [facility] Last Admin: 09/28/16 09:43 Dose: 100 mg - Labs Labs: 09/29/16 07:20 09/29/16 07:20 PT 13.8 SECONDS (9.7-12.2) H 09/16/16 20:54 INR 1.2 09/16/16 20:54 APTT 34 SECONDS (21-34) 09/16/16 20:54 Assessment and Plan (1) Gastrointestinal hemorrhage Status: Acute (2) Pneumonia Status: Acute (3) Anemia Status: Acute (4) Chest pain Status: Acute (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 Status: Acute (6) Diabetes mellitus, new onset Status: Acute (7) Infected ulcer of skin Status: Acute (8) PAD (peripheral artery disease) Status: Acute (9) Pancytopenia Status: Acute (10) Prophylactic measure Status: Acute (11) CAD (coronary artery disease) Status: Chronic (12) Diabetes mellitus Status: Chronic Attending/Attestation - Attestation I have personally seen and examined this patient.: Yes I have fully participated in the care of the patient.: Yes I have reviewed all pertinent clinical information, including history, physical exam and plan: Yes Notes (Text): getting treatment for pnemonia pancytopnei and diabetic foot case seen and discussed [facility] staff adn resident
[2016-09-19] MEDS ORDERED: Lidocaine 2% Inj (20ml) ONE (12:33)
[2016-09-19] MEDS ORDERED: EPINEPHrine 1 mg/ml (1:1000) Inj ONE (12:34)
[2016-09-19] MEDS ORDERED: Lactated Ringer's 1,000 ML IV ONE (13:05)
[2016-09-19] MEDS ORDERED: Influenza Virus Vaccine 45 mcg/0.5 ml Syr IM ONE (14:00)
[2016-09-19] MEDS ORDERED: Pneumococcal 23-Valent Vaccine IM ONE (14:00)
--- NOTE | 2016-09-19 15:21 | CP.PCM.PN ---
Subjective - Date & Time of Evaluation Date of Evaluation: 09/19/16 Time of Evaluation: 07:00 - Subjective Subjective: Still complaining of slight cough but no hemoptysis CAT scan of the chest consistent with right upper lung infiltrate with normal calcitonin level Objective - Vital Signs/Intake and Output Vital Signs (last 24 hours): Temp Pulse Resp BP Pulse Ox 98.4 F 67 20 148/63 96 09/19/16 09:06 09/19/16 09:06 09/19/16 09:06 09/19/16 09:06 09/19/16 09:06 Intake and Output: 09/19/16 09/19/16 06:59 18:59 Intake Total 810 Output Total 1750 Balance -940 - Medications Medications: Current Medications Aspirin (Aspirin) 325 mg PO DAILY [facility] Last Admin: 09/19/16 09:47 Dose: Not Given Ferric Sodium Gluconate Complex (Ferrlecit) 125 mg IVPB DAILY [facility] Stop: 09/22/16 10:01 Last Admin: 09/19/16 09:46 Dose: 125 mg Folic Acid (Folic Acid) 1 mg PO DAILY [facility] Last Admin: 09/19/16 09:47 Dose: Not Given Pantoprazole Sodium 80 mg/ (Sodium Chloride) 100 mls @ 10 mls/hr IV .Q10H [facility] PRN Reason: 8 MG/HR Last Admin: 09/19/16 12:35 Dose: Not Given Ceftriaxone Sodium 1 gm/ (Sodium Chloride) 100 mls @ 200 mls/hr IVPB Q12H [facility] Last Admin: 09/19/16 09:44 Dose: 200 mls/hr Insulin Glargine (Lantus) 10 unit SC HS [facility] Last Admin: 09/18/16 21:50 Dose: 10 units Insulin Human Regular (Novolin R) 0 unit SC ACHS [facility] PRN Reason: Protocol Last Admin: 09/19/16 12:34 Dose: Not Given Isosorbide Mononitrate (Imdur) 30 mg PO DAILY [facility] Last Admin: 09/19/16 09:51 Dose: 30 mg Ketorolac Tromethamine (Toradol) 15 mg IVP Q6 PRN PRN Reason: moderate pain Magnesium Hydroxide (Milk Of Magnesia) 30 ml PO Q72 PRN PRN Reason: Constipation Metoprolol Succinate (Toprol Xl) 12.5 mg PO DAILY [facility] Last Admin: 09/19/16 09:51 Dose: 12.5 mg Ondansetron HCl (Zofran Inj) 4 mg IVP ONCE PRN PRN Reason: Nausea/Vomiting Stop: 09/19/16 15:58 Pneumococcal Polyvalent Vaccine (Pneumovax 23 Vaccine) 0.5 ml IM .ONCE ONE Stop: 09/20/16 10:01 Ranolazine (Ranexa) 500 mg PO BID [facility] Last Admin: 09/19/16 09:47 Dose: Not Given Rosuvastatin Calcium (Crestor) 20 mg PO HS [facility] Last Admin: 09/18/16 22:40 Dose: 20 mg Thiamine HCl (Vitamin B1 Tab) 100 mg PO DAILY [facility] Last Admin: 09/19/16 09:47 Dose: Not Given - Labs Labs: 09/19/16 07:00 09/19/16 07:00 PT 13.8 SECONDS (9.7-12.2) H 09/16/16 20:54 INR 1.2 09/16/16 20:54 APTT 34 SECONDS (21-34) 09/16/16 20:54 - Constitutional Appears: Non-toxic, Chronically Ill - Head Exam Head Exam: NORMOCEPHALIC - Eye Exam Eye Exam: PERRL. absent: Scleral icterus - ENT Exam ENT Exam: Mucous Membranes Dry - Neck Exam Neck Exam: absent: Lymphadenopathy - Respiratory Exam Respiratory Exam: Decreased Breath Sounds, Rhonchi - Cardiovascular Exam Cardiovascular Exam: REGULAR RHYTHM, +S1, +S2 - GI/Abdominal Exam GI & Abdominal Exam: Distended - Rectal Exam Rectal Exam: Deferred - Exam Exam: NORMAL INSPECTION - Extremities Exam Extremities Exam: absent: Pedal Edema - Back Exam Back Exam: absent: CVA tenderness (L), CVA tenderness (R) - Neurological Exam Neurological Exam: Alert, Awake, Oriented x3 Assessment and Plan (1) Diabetes mellitus with ulcer of ankle Status: Acute (2) Infected ulcer of skin Status: Acute (3) PAD (peripheral artery disease) Status: Acute (4) CAD (coronary artery disease) Status: Chronic - Assessment and Plan (Free Text) Assessment: cont iv rx
--- NOTE | 2016-09-19 15:45 | CP.PCM.PN ---
Subjective - Date & Time of Evaluation Date of Evaluation: 09/19/16 Time of Evaluation: 07:00 - Subjective Subjective: Patient seen and examined. Lying comfortably in no acute distress Denies fever or chills, denies chest pain Objective - Vital Signs/Intake and Output Vital Signs (last 24 hours): Temp Pulse Resp BP Pulse Ox 98.4 F 67 20 148/63 96 09/19/16 09:06 09/19/16 09:06 09/19/16 09:06 09/19/16 09:06 09/19/16 09:06 Intake and Output: 09/19/16 09/19/16 06:59 18:59 Intake Total 810 200 Output Total 1750 Balance -940 200 - Medications Medications: Current Medications Aspirin (Aspirin) 325 mg PO DAILY [facility] Last Admin: 09/19/16 09:47 Dose: Not Given Ferric Sodium Gluconate Complex (Ferrlecit) 125 mg IVPB DAILY [facility] Stop: 09/22/16 10:01 Last Admin: 09/19/16 09:46 Dose: 125 mg Folic Acid (Folic Acid) 1 mg PO DAILY [facility] Last Admin: 09/19/16 09:47 Dose: Not Given Pantoprazole Sodium 80 mg/ (Sodium Chloride) 100 mls @ 10 mls/hr IV .Q10H [facility] PRN Reason: 8 MG/HR Last Admin: 09/19/16 12:35 Dose: Not Given Ceftriaxone Sodium 1 gm/ (Sodium Chloride) 100 mls @ 200 mls/hr IVPB Q12H [facility] Last Admin: 09/19/16 09:44 Dose: 200 mls/hr Insulin Glargine (Lantus) 10 unit SC HS [facility] Last Admin: 09/18/16 21:50 Dose: 10 units Insulin Human Regular (Novolin R) 0 unit SC ACHS [facility] PRN Reason: Protocol Last Admin: 09/19/16 12:34 Dose: Not Given Isosorbide Mononitrate (Imdur) 30 mg PO DAILY [facility] Last Admin: 09/19/16 09:51 Dose: 30 mg Ketorolac Tromethamine (Toradol) 15 mg IVP Q6 PRN PRN Reason: moderate pain Magnesium Hydroxide (Milk Of Magnesia) 30 ml PO Q72 PRN PRN Reason: Constipation Metoprolol Succinate (Toprol Xl) 12.5 mg PO DAILY [facility] Last Admin: 09/19/16 09:51 Dose: 12.5 mg Ondansetron HCl (Zofran Inj) 4 mg IVP ONCE PRN PRN Reason: Nausea/Vomiting Stop: 09/19/16 15:58 Pneumococcal Polyvalent Vaccine (Pneumovax 23 Vaccine) 0.5 ml IM .ONCE ONE Stop: 09/20/16 10:01 Ranolazine (Ranexa) 500 mg PO BID [facility] Last Admin: 09/19/16 09:47 Dose: Not Given Rosuvastatin Calcium (Crestor) 20 mg PO HS [facility] Last Admin: 09/18/16 22:40 Dose: 20 mg Thiamine HCl (Vitamin B1 Tab) 100 mg PO DAILY [facility] Last Admin: 09/19/16 09:47 Dose: Not Given - Labs Labs: 09/19/16 07:00 09/19/16 07:00 PT 13.8 SECONDS (9.7-12.2) H 09/16/16 20:54 INR 1.2 09/16/16 20:54 APTT 34 SECONDS (21-34) 09/16/16 20:54 - Head Exam Head Exam: ATRAUMATIC, NORMOCEPHALIC - Eye Exam Eye Exam: Normal appearance - ENT Exam ENT Exam: Mucous Membranes Moist - Neck Exam Neck Exam: Normal Inspection - Respiratory Exam Respiratory Exam: Decreased Breath Sounds - Cardiovascular Exam Cardiovascular Exam: REGULAR RHYTHM - GI/Abdominal Exam GI & Abdominal Exam: Soft Assessment and Plan (1) Pneumonia Assessment & Plan: Continue antibiotics, Follow up culture and sensitivity Continue respiratory isolation Status: Acute
--- NOTE | 2016-09-19 15:54 | RAD ---
PROCEDURE: CHEST RADIOGRAPH, 1 VIEW HISTORY: S/P POST BRONCH/ R/O PTX COMPARISON: Comparison chest 09/16/2016 comparison also made with CTA chest 09/17/2016 FINDINGS: LUNGS: Re- demonstrated is right-sided PICC line with tip in the SVC. Apparent slight improvement previously noted patchy opacity in the right upper lobe. Hyperinflation changes with moderate to severe emphysematous changes upper lobe predominance less well seen compared to high-resolution CT chest PLEURA: No apparent pneumothorax. CARDIOVASCULAR: Normal. OSSEOUS STRUCTURES: No significant abnormalities. VISUALIZED UPPER ABDOMEN: Normal. OTHER FINDINGS: None. IMPRESSION: . Slight improvement previously noted patchy infiltrate changes in the right upper lobe. Hyperinflation with significant emphysema upper lobe predominance less well seen on this study compared to high-resolution CT chest No apparent pneumothorax
--- NOTE | 2016-09-19 16:19 | OP ---
PROCEDURE DATE: 09/19/2016 PROCEDURE: Fiberoptic bronchoscopy with brushing, bronchoalveolar lavage, and biopsy. DESCRIPTION OF PROCEDURE: After obtaining consent from the patient, explaining patient risks and lisa efits, which he understood, the procedure was done. After giving anesthesia by the anesthesiologist, the nose and throat were prepared with lidocaine. The bronchoscope was passed through the mouth int o the throat. After instilling lidocaine, the bronchoscope was advanced into the trachea. The vocal cords appeared normal. The trachea was normal. No endobronchial lesions seen. The main sophia was sharp. First, the bronchoscope passed on the left side, which appeared normal. Later the bronchosc ope was pulled back and passed on to the right side. The right main, the right middle, and right low er lobe all appeared normal, but there was thick blood noted in the right upper lobe, which was sucti oned out. Bronchoalveolar lavage was done. Also, brushing and biopsy were done right upper lobe. T he patient tolerated the procedure well. No significant bleeding noted. Eddy Ross MD cc: 9 TT: 09/19/2016 16:18:45 [email or web address]
--- NOTE | 2016-09-19 16:21 | RAD ---
PROCEDURE: Intraoperative fluoroscopy HISTORY: BRONCH COMPARISON: Not available TECHNIQUE: Intraoperative fluoroscopy was provided for bronchoscopy. Total time of fluoroscopy was 72.5 seconds. FINDINGS: Seven fluoroscopic spot films are submitted. Films are on file for review. IMPRESSION: Fluoroscopy provided.
--- NOTE | 2016-09-19 17:58 | CP.PCM.PN ---
Subjective - Date & Time of Evaluation Date of Evaluation: 09/19/16 Time of Evaluation: 09:40 - Subjective Subjective: clinically same Objective - Vital Signs/Intake and Output Vital Signs (last 24 hours): Temp Pulse Resp BP Pulse Ox 97.6 F 66 20 153/74 H 97 09/19/16 16:40 09/19/16 16:40 09/19/16 16:40 09/19/16 16:40 09/19/16 16:40 Intake and Output: 09/19/16 09/19/16 06:59 18:59 Intake Total 810 200 Output Total 1750 Balance -940 200 - Medications Medications: Current Medications Aspirin (Aspirin) 325 mg PO DAILY [facility] Last Admin: 09/19/16 09:47 Dose: Not Given Ferric Sodium Gluconate Complex (Ferrlecit) 125 mg IVPB DAILY [facility] Stop: 09/22/16 10:01 Last Admin: 09/19/16 09:46 Dose: 125 mg Folic Acid (Folic Acid) 1 mg PO DAILY [facility] Last Admin: 09/19/16 09:47 Dose: Not Given Pantoprazole Sodium 80 mg/ (Sodium Chloride) 100 mls @ 10 mls/hr IV .Q10H [facility] PRN Reason: 8 MG/HR Last Admin: 09/19/16 12:35 Dose: Not Given Ceftriaxone Sodium 1 gm/ (Sodium Chloride) 100 mls @ 200 mls/hr IVPB Q12H [facility] Last Admin: 09/19/16 09:44 Dose: 200 mls/hr Insulin Glargine (Lantus) 10 unit SC HS [facility] Last Admin: 09/18/16 21:50 Dose: 10 units Insulin Human Regular (Novolin R) 0 unit SC ACHS [facility] PRN Reason: Protocol Last Admin: 09/19/16 12:34 Dose: Not Given Isosorbide Mononitrate (Imdur) 30 mg PO DAILY [facility] Last Admin: 09/19/16 09:51 Dose: 30 mg Ketorolac Tromethamine (Toradol) 15 mg IVP Q6 PRN PRN Reason: moderate pain Magnesium Hydroxide (Milk Of Magnesia) 30 ml PO Q72 PRN PRN Reason: Constipation Metoprolol Succinate (Toprol Xl) 12.5 mg PO DAILY [facility] Last Admin: 09/19/16 09:51 Dose: 12.5 mg Pneumococcal Polyvalent Vaccine (Pneumovax 23 Vaccine) 0.5 ml IM .ONCE ONE Stop: 09/20/16 10:01 Ranolazine (Ranexa) 500 mg PO BID [facility] Last Admin: 09/19/16 09:47 Dose: Not Given Rosuvastatin Calcium (Crestor) 20 mg PO HS [facility] Last Admin: 09/18/16 22:40 Dose: 20 mg Thiamine HCl (Vitamin B1 Tab) 100 mg PO DAILY [facility] Last Admin: 09/19/16 09:47 Dose: Not Given - Labs Labs: 09/19/16 07:00 09/19/16 07:00 PT 13.8 SECONDS (9.7-12.2) H 09/16/16 20:54 INR 1.2 09/16/16 20:54 APTT 34 SECONDS (21-34) 09/16/16 20:54 - Constitutional Appears: Well - Head Exam Head Exam: ATRAUMATIC, NORMAL INSPECTION, NORMOCEPHALIC - Eye Exam Eye Exam: EOMI, Normal appearance, PERRL Pupil Exam: NORMAL ACCOMODATION, PERRL - ENT Exam ENT Exam: Mucous Membranes Moist, Normal Exam - Neck Exam Neck Exam: Full ROM, Normal Inspection. 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
[2016-09-19] MEDS: (Lantus) Insulin Glargine, Recombinant SC SCH (22:00)
[2016-09-20 07:15] LABS: BASO % 0.6 % (0.0-2.0); EOS # 0.1 K/uL (0.0-0.7); EOS % 5.4 % (0.0-4.0); HEMATOCRIT 23.4 % (35.0-51.0); LYMPH # 0.9 K/uL (1.0-4.3); LYMPH % 51.1 % (20.0-40.0); MEAN CELL VOLUME 77.7 fL (80.0-94.0); MEAN CORPUSCULAR HEMOGLOBIN 26.1 pg (27.0-31.0); MEAN CORPUSCULAR HGB CONC 33.5 g/dL (33.0-37.0); MEAN PLATELET VOLUME 9.1 fL (7.2-11.7); MONO # 0.5 K/uL (0.0-0.8); NRBC % 0.2 % (0.0-2.0); PLATELET COUNT 102 K/uL (130-400); RED CELL DISTRIBUTION WIDTH 20.7 % (11.5-14.5)
[2016-09-20 07:25] LABS: WHITE BLOOD COUNT 1.8 K/uL (4.8-10.8)
[2016-09-20 07:46] LABS: CHLORIDE 102 mmol/L (98-107); SODIUM 137 mmol/L (132-148)
[2016-09-20 07:47] LABS: POTASSIUM 3.9 mmol/L (3.6-5.2)
[2016-09-20 07:49] LABS: ALB/GLOB RATIO 0.8 (1.0-2.1); AST/SGOT 16 U/L (17-59); BILIRUBIN,TOTAL 0.6 mg/dL (0.2-1.3); BLOOD UREA NITROGEN 18 mg/dL (9-20); CARBON DIOXIDE 27 mmol/L (22-30); GFR AFRICAN-AMERICAN > 60; TOTAL PROTEIN 7.1 g/dL (6.3-8.3)
[2016-09-20 07:50] LABS: ALKALINE PHOSPHATASE 96 U/L (38-126); ALT/SGPT 17 U/L (21-72); CALCIUM 8.4 mg/dl (8.6-10.4); GLUCOSE,RANDOM 108 mg/dL (75-110)
[2016-09-20] MEDS: (Novolin R) Insulin Human Regular 100 units/ml vial SC SCH ×4 (08:46→22:05)
[2016-09-20] MEDS: Pantoprazole 80 MG in Sodium Chloride 0.9% 100 ML IV SCH ×3 (08:47→17:57)
--- NOTE | 2016-09-20 09:09 | CP.PCM.PN ---
Subjective - Date & Time of Evaluation Date of Evaluation: 09/20/16 Time of Evaluation: 09:20 - Subjective Subjective: clinically same Objective - Vital Signs/Intake and Output Vital Signs (last 24 hours): Temp Pulse Resp BP Pulse Ox 98.5 F 69 20 126/69 97 09/20/16 08:00 09/20/16 08:00 09/20/16 08:00 09/20/16 08:00 09/20/16 08:00 Intake and Output: 09/20/16 09/20/16 06:59 18:59 Intake Total 900 Output Total 700 Balance 200 - Medications Medications: Current Medications Aspirin (Aspirin) 325 mg PO DAILY [facility] Last Admin: 09/19/16 09:47 Dose: Not Given Ferric Sodium Gluconate Complex (Ferrlecit) 125 mg IVPB DAILY [facility] Stop: 09/22/16 10:01 Last Admin: 09/19/16 09:46 Dose: 125 mg Folic Acid (Folic Acid) 1 mg PO DAILY [facility] Last Admin: 09/19/16 09:47 Dose: Not Given Pantoprazole Sodium 80 mg/ (Sodium Chloride) 100 mls @ 10 mls/hr IV .Q10H [facility] PRN Reason: 8 MG/HR Last Admin: 09/20/16 08:47 Dose: Not Given Ceftriaxone Sodium 1 gm/ (Sodium Chloride) 100 mls @ 200 mls/hr IVPB Q12H [facility] Last Admin: 09/19/16 22:00 Dose: 200 mls/hr Insulin Glargine (Lantus) 10 unit SC HS [facility] Last Admin: 09/19/16 22:00 Dose: 10 units Insulin Human Regular (Novolin R) 0 unit SC [facility] PRN Reason: Protocol Last Admin: 09/20/16 08:46 Dose: Not Given Isosorbide Mononitrate (Imdur) 30 mg PO DAILY [facility] Last Admin: 09/19/16 09:51 Dose: 30 mg Ketorolac Tromethamine (Toradol) 15 mg IVP Q6 PRN PRN Reason: moderate pain Magnesium Hydroxide (Milk Of Magnesia) 30 ml PO Q72 PRN PRN Reason: Constipation Metoprolol Succinate (Toprol Xl) 12.5 mg PO DAILY [facility] Last Admin: 09/19/16 09:51 Dose: 12.5 mg Pneumococcal Polyvalent Vaccine (Pneumovax 23 Vaccine) 0.5 ml IM .ONCE ONE Stop: 09/20/16 10:01 Ranolazine (Ranexa) 500 mg PO BID [facility] Last Admin: 09/19/16 17:58 Dose: 500 mg Rosuvastatin Calcium (Crestor) 20 mg PO HS [facility] Last Admin: 09/19/16 22:00 Dose: 20 mg Thiamine HCl (Vitamin B1 Tab) 100 mg PO DAILY [facility] Last Admin: 09/19/16 09:47 Dose: Not Given - Labs Labs: 09/20/16 07:04 09/20/16 07:04 PT 13.8 SECONDS (9.7-12.2) H 09/16/16 20:54 INR 1.2 09/16/16 20:54 APTT 34 SECONDS (21-34) 09/16/16 20:54 - Constitutional Appears: Well - Head Exam Head Exam: ATRAUMATIC, NORMAL INSPECTION, NORMOCEPHALIC - Eye Exam Eye Exam: EOMI, Normal appearance, PERRL Pupil Exam: NORMAL ACCOMODATION, PERRL - ENT Exam ENT Exam: Mucous Membranes Moist, Normal Exam - Neck Exam Neck Exam: Full ROM, Normal Inspection. 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
[2016-09-20 09:33] LABS: EOSINOPHIL 6 % (0-4); NEUTROPHIL 16 % (50-75); TOTAL CELLS COUNTED 50
[2016-09-20] MEDS: Ranolazine 500 mg Extended Release Tablets PO SCH ×2 (09:58→17:58)
[2016-09-20] MEDS ORDERED: Pneumococcal 23-Valent Vaccine IM ONE (10:00)
[2016-09-20] MEDS: Ferric Sodium Gluconat Complex 62.5 mg/5 ml Vial IVPB SCH (10:08)
[2016-09-20] MEDS: Metoprolol Succinate 12.5 mg XL PO SCH ×2 (10:08→12:31)
--- NOTE | 2016-09-20 11:53 | CP.PCM.PN ---
Subjective - Date & Time of Evaluation Date of Evaluation: 09/20/16 Time of Evaluation: 09:00 - Subjective Subjective: patient seen and examined. Denies cough, denies fever chills, denies hemoptysis Status post bronchoscopy and lung biopsy Continue with respiratory isolation Objective - Vital Signs/Intake and Output Vital Signs (last 24 hours): Temp Pulse Resp BP Pulse Ox 98.5 F 69 20 126/69 97 09/20/16 08:00 09/20/16 08:00 09/20/16 08:00 09/20/16 08:00 09/20/16 08:00 Intake and Output: 09/20/16 09/20/16 06:59 18:59 Intake Total 900 Output Total 700 Balance 200 - Medications Medications: Current Medications Aspirin (Aspirin) 325 mg PO DAILY [facility] Last Admin: 09/20/16 09:57 Dose: 325 mg Ferric Sodium Gluconate Complex (Ferrlecit) 125 mg IVPB DAILY [facility] Stop: 09/22/16 10:01 Last Admin: 09/20/16 10:08 Dose: 125 mg Folic Acid (Folic Acid) 1 mg PO DAILY [facility] Last Admin: 09/20/16 09:57 Dose: 1 mg Pantoprazole Sodium 80 mg/ (Sodium Chloride) 100 mls @ 10 mls/hr IV .Q10H [facility] PRN Reason: 8 MG/HR Last Admin: 09/20/16 09:59 Dose: 10 mls/hr Ceftriaxone Sodium 1 gm/ (Sodium Chloride) 100 mls @ 200 mls/hr IVPB Q12H [facility] Last Admin: 09/20/16 09:58 Dose: 200 mls/hr Insulin Glargine (Lantus) 10 unit SC HS [facility] Last Admin: 09/19/16 22:00 Dose: 10 units Insulin Human Regular (Novolin R) 0 unit SC ACHS [facility] PRN Reason: Protocol Last Admin: 09/20/16 08:46 Dose: Not Given Isosorbide Mononitrate (Imdur) 30 mg PO DAILY [facility] Last Admin: 09/20/16 09:57 Dose: 30 mg Ketorolac Tromethamine (Toradol) 15 mg IVP Q6 PRN PRN Reason: moderate pain Magnesium Hydroxide (Milk Of Magnesia) 30 ml PO Q72 PRN PRN Reason: Constipation Metoprolol Succinate (Toprol Xl) 12.5 mg PO DAILY [facility] Last Admin: 09/20/16 10:08 Dose: Not Given Ranolazine (Ranexa) 500 mg PO BID [facility] Last Admin: 09/20/16 09:58 Dose: 500 mg Rosuvastatin Calcium (Crestor) 20 mg PO HS [facility] Last Admin: 09/19/16 22:00 Dose: 20 mg Thiamine HCl (Vitamin B1 Tab) 100 mg PO DAILY [facility] Last Admin: 09/20/16 09:58 Dose: 100 mg - Labs Labs: 09/20/16 07:04 09/20/16 07:04 PT 13.8 SECONDS (9.7-12.2) H 09/16/16 20:54 INR 1.2 09/16/16 20:54 APTT 34 SECONDS (21-34) 09/16/16 20:54 - Head Exam Head Exam: ATRAUMATIC, NORMOCEPHALIC - Eye Exam Eye Exam: Normal appearance - ENT Exam ENT Exam: Mucous Membranes Moist - Neck Exam Neck Exam: Normal Inspection - Respiratory Exam Respiratory Exam: Clear to Ausculation Bilateral - Cardiovascular Exam Cardiovascular Exam: REGULAR RHYTHM - GI/Abdominal Exam GI & Abdominal Exam: Soft, Normal Bowel Sounds Assessment and Plan (1) Pneumonia Assessment & Plan: continue antibiotics for now Followup BAL for AFB and culture and sensitivity Followup biopsy of right upper lo Continue respiratory isolation Status: Acute
--- NOTE | 2016-09-20 13:06 | CP.PCM.PN ---
<Ron Gallagher - Last Filed: 09/20/16 15:17> Subjective - Date & Time of Evaluation Date of Evaluation: 09/20/16 Time of Evaluation: 09:40 - Subjective Subjective: Medicine Note- Dr. Ramírez's service Patient was seen and examined at bedside. Patient reports no acute complaints at this time. He says he is tired of staying in the room. Patient is tolerating PO, moving bowels and urinating normally. Denies dyspnea, cough at this time. No events overnight, per nursing. Objective - Vital Signs/Intake and Output Vital Signs (last 24 hours): Temp Pulse Resp BP Pulse Ox 98.5 F 69 20 126/69 97 09/20/16 08:00 09/20/16 08:00 09/20/16 08:00 09/20/16 08:00 09/20/16 08:00 Intake and Output: 09/20/16 09/20/16 06:59 18:59 Intake Total 900 Output Total 700 Balance 200 - Medications Medications: Current Medications Aspirin (Aspirin) 325 mg PO DAILY [facility] Last Admin: 09/20/16 09:57 Dose: 325 mg Ferric Sodium Gluconate Complex (Ferrlecit) 125 mg IVPB DAILY [facility] Stop: 09/22/16 10:01 Last Admin: 09/20/16 10:08 Dose: 125 mg Folic Acid (Folic Acid) 1 mg PO DAILY [facility] Last Admin: 09/20/16 09:57 Dose: 1 mg Pantoprazole Sodium 80 mg/ (Sodium Chloride) 100 mls @ 10 mls/hr IV .Q10H [facility] PRN Reason: 8 MG/HR Last Admin: 09/20/16 09:59 Dose: 10 mls/hr Ceftriaxone Sodium 1 gm/ (Sodium Chloride) 100 mls @ 200 mls/hr IVPB Q12H [facility] Last Admin: 09/20/16 09:58 Dose: 200 mls/hr Insulin Glargine (Lantus) 10 unit SC HS [facility] Last Admin: 09/19/16 22:00 Dose: 10 units Insulin Human Regular (Novolin R) 0 unit SC ACHS [facility] PRN Reason: Protocol Last Admin: 09/20/16 12:28 Dose: 1 unit Isosorbide Mononitrate (Imdur) 30 mg PO DAILY [facility] Last Admin: 09/20/16 09:57 Dose: 30 mg Ketorolac Tromethamine (Toradol) 15 mg IVP Q6 PRN PRN Reason: moderate pain Magnesium Hydroxide (Milk Of Magnesia) 30 ml PO Q72 PRN PRN Reason: Constipation Metoprolol Succinate (Toprol Xl) 12.5 mg PO DAILY [facility] Last Admin: 09/20/16 12:31 Dose: 12.5 mg Ranolazine (Ranexa) 500 mg PO BID [facility] Last Admin: 09/20/16 09:58 Dose: 500 mg Rosuvastatin Calcium (Crestor) 20 mg PO HS [facility] Last Admin: 09/19/16 22:00 Dose: 20 mg Thiamine HCl (Vitamin B1 Tab) 100 mg PO DAILY [facility] Last Admin: 09/20/16 09:58 Dose: 100 mg - Labs Labs: 09/20/16 07:04 09/20/16 07:04 PT 13.8 SECONDS (9.7-12.2) H 09/16/16 20:54 INR 1.2 09/16/16 20:54 APTT 34 SECONDS (21-34) 09/16/16 20:54 - Constitutional Appears: Non-toxic, No Acute Distress - Head Exam Head Exam: ATRAUMATIC, NORMAL INSPECTION, NORMOCEPHALIC - Eye Exam Pupil Exam: NORMAL ACCOMODATION - ENT Exam ENT Exam: Mucous Membranes Moist - Respiratory Exam Respiratory Exam: Clear to Ausculation Bilateral, Rales, NORMAL BREATHING PATTERN. absent: Prolonged Expiratory Phase, Rhonchi - Cardiovascular Exam Cardiovascular Exam: REGULAR RHYTHM, +S1, +S2 - GI/Abdominal Exam GI & Abdominal Exam: Soft, Normal Bowel Sounds. absent: Guarding, Rigid, Tenderness, Diminished Bowel Sounds, Hypoactive Bowel Sounds - Extremities Exam Extremities Exam: Normal Capillary Refill, Normal Inspection - Neurological Exam Neurological Exam: Alert, Awake, Oriented x3 - Psychiatric Exam Psychiatric exam: Normal Affect, Normal Mood - Skin Skin Exam: Dry, Intact, Normal Color, Warm Assessment and Plan - Assessment and Plan (Free Text) Assessment: Hemoptysis 40ml red blood reported at long term per ED note. No more episodes in hospital. Dr. Ross and Dario consulted, help appreciated. CXR showed RUL infiltrate. Procalcitonin level low. Rocephin 1gm IVPB Q12h started 09/17. CT angio showed RUL pneumonia (see full report). Protonix drip @8mg/hr. Pending quantiferon gold test. s/p bronchoscopy- per Dr. Ross, if bronchial wash cultures / AFB return negative , isolationg is to be discontinued. Pancytopenia Neutropenic precautions. Heme/onc dr. Nguyen consulted. IV Ferrlecit. Possible bone marrow biopsy if blood counts do not recover. Right foot infection Podiatry Dr. Ramirez consulted, help appreciated. Left arm swelling Venous doppler showed left arm cephalic vein thrombosis. Vascular Dr. Lugo consulted, help appreciated. Symptomatic treatment for now. DM Lantus 10U SC HS RISS, accucheck. Prophylactic measure Protonix drip. SCD and HepSQ contraindicated. Management per Dr. Ramírez. <Santiago Ramírez S - Last Filed: 09/29/16 09:22> Objective - Vital Signs/Intake and Output Vital Signs (last 24 hours): Temp Pulse Resp BP Pulse Ox 97.5 F L 70 20 155/85 H 98 09/29/16 08:10 09/29/16 08:10 09/29/16 08:10 09/29/16 08:10 09/29/16 08:10 Intake and Output: 09/29/16 09/29/16 06:59 18:59 Intake Total 840 Output Total 400 Balance 440 - Medications Medications: Current Medications Aspirin (Aspirin) 325 mg PO DAILY [facility] Last Admin: 09/28/16 09:43 Dose: 325 mg Folic Acid (Folic Acid) 1 mg PO DAILY [facility] Last Admin: 09/28/16 09:43 Dose: 1 mg Ceftriaxone Sodium 1 gm/ (Sodium Chloride) 100 mls @ 200 mls/hr IVPB Q12H [facility] Last Admin: 09/28/16 21:41 Dose: 200 mls/hr Insulin Glargine (Lantus) 10 unit SC HS [facility] Last Admin: 09/28/16 21:47 Dose: 10 units Insulin Human Regular (Novolin R) 0 unit SC ACHS [facility] PRN Reason: Protocol Last Admin: 09/29/16 07:59 Dose: Not Given Isosorbide Mononitrate (Imdur) 30 mg PO DAILY [facility] Last Admin: 09/28/16 09:42 Dose: 30 mg Lactic Acid (Lac-Hydrin 12% Lotion (225 G)) 0 gm EXT BID [facility] Last Admin: 09/28/16 18:28 Dose: 1 applic Magnesium Hydroxide (Milk Of Magnesia) 30 ml PO Q72 PRN PRN Reason: Constipation Metoprolol Succinate (Toprol Xl) 12.5 mg PO DAILY [facility] Last Admin: 09/28/16 09:45 Dose: 12.5 mg Pantoprazole Sodium (Protonix Ec Tab) 40 mg PO DAILY [facility] Last Admin: 09/28/16 09:42 Dose: 40 mg Ranolazine (Ranexa) 500 mg PO BID [facility] Last Admin: 09/28/16 18:38 Dose: 500 mg Rosuvastatin Calcium (Crestor) 20 mg PO HS [facility] Last Admin: 09/28/16 21:40 Dose: 20 mg Thiamine HCl (Vitamin B1 Tab) 100 mg PO DAILY [facility] Last Admin: 09/28/16 09:43 Dose: 100 mg - Labs Labs: 09/29/16 07:20 09/29/16 07:20 PT 13.8 SECONDS (9.7-12.2) H 09/16/16 20:54 INR 1.2 09/16/16 20:54 APTT 34 SECONDS (21-34) 09/16/16 20:54 Assessment and Plan (1) Gastrointestinal hemorrhage Status: Acute (2) Pneumonia Status: Acute (3) Anemia Status: Acute (4) Chest pain Status: Acute (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 Status: Acute (6) Diabetes mellitus, new onset Status: Acute (7) Infected ulcer of skin Status: Acute (8) PAD (peripheral artery disease) Status: Acute (9) Pancytopenia Status: Acute (10) Prophylactic measure Status: Acute (11) CAD (coronary artery disease) Status: Chronic (12) Diabetes mellitus Status: Chronic Attending/Attestation - Attestation I have personally seen and examined this patient.: Yes I have fully participated in the care of the patient.: Yes I have reviewed all pertinent clinical information, including history, physical exam and plan: Yes Notes (Text): getting treated for pneumonia pancytopenia andwound in diabetic foot
[2016-09-20] MEDS: (Lantus) Insulin Glargine, Recombinant SC SCH (22:08)
[2016-09-21] MEDS: Pantoprazole 80 MG in Sodium Chloride 0.9% 100 ML IV SCH ×2 (02:56→14:12)
[2016-09-21 07:27] LABS: BASO % 0.7 % (0.0-2.0); EOS # 0.1 K/uL (0.0-0.7); EOS % 6.7 % (0.0-4.0); HEMATOCRIT 23.5 % (35.0-51.0); LYMPH % 60.7 % (20.0-40.0); MEAN CELL VOLUME 77.8 fL (80.0-94.0); MEAN CORPUSCULAR HEMOGLOBIN 26.2 pg (27.0-31.0); MEAN CORPUSCULAR HGB CONC 33.7 g/dL (33.0-37.0); MEAN PLATELET VOLUME 9.3 fL (7.2-11.7); MONO # 0.3 K/uL (0.0-0.8); MONO % 17.1 % (0.0-10.0); NRBC % 0.2 % (0.0-2.0); RED CELL DISTRIBUTION WIDTH 20.3 % (11.5-14.5)
[2016-09-21 07:31] LABS: WHITE BLOOD COUNT 1.7 K/uL (4.8-10.8)
[2016-09-21 07:37] LABS: CHLORIDE 104 mmol/L (98-107); POTASSIUM 3.9 mmol/L (3.6-5.2); SODIUM 138 mmol/L (132-148)
[2016-09-21 07:39] LABS: ALB/GLOB RATIO 0.8 (1.0-2.1); AST/SGOT 14 U/L (17-59); BILIRUBIN,TOTAL 0.6 mg/dL (0.2-1.3); BLOOD UREA NITROGEN 17 mg/dL (9-20); CARBON DIOXIDE 27 mmol/L (22-30); GFR AFRICAN-AMERICAN > 60
[2016-09-21 07:40] LABS: ALKALINE PHOSPHATASE 96 U/L (38-126); ALT/SGPT 14 U/L (21-72); CALCIUM 8.5 mg/dl (8.6-10.4); GLUCOSE,RANDOM 134 mg/dL (75-110)
[2016-09-21] MEDS: (Novolin R) Insulin Human Regular 100 units/ml vial SC SCH ×4 (07:58→21:46)
--- NOTE | 2016-09-21 09:23 | CP.PCM.PN ---
Subjective - Date & Time of Evaluation Date of Evaluation: 09/21/16 Time of Evaluation: 09:20 - Subjective Subjective: pt seen for follow up ulcer of ankle right ankle chronic in nature . Objective - Vital Signs/Intake and Output Vital Signs (last 24 hours): Temp Pulse Resp BP Pulse Ox 97.8 F 72 20 152/74 H 99 09/21/16 09:06 09/21/16 09:06 09/21/16 09:06 09/21/16 09:06 09/21/16 09:06 Intake and Output: 09/21/16 09/21/16 06:59 18:59 Intake Total 320 Balance 320 - Medications Medications: Current Medications Aspirin (Aspirin) 325 mg PO DAILY [facility] Last Admin: 09/20/16 09:57 Dose: 325 mg Ferric Sodium Gluconate Complex (Ferrlecit) 125 mg IVPB DAILY [facility] Stop: 09/22/16 10:01 Last Admin: 09/20/16 10:08 Dose: 125 mg Folic Acid (Folic Acid) 1 mg PO DAILY [facility] Last Admin: 09/20/16 09:57 Dose: 1 mg Pantoprazole Sodium 80 mg/ (Sodium Chloride) 100 mls @ 10 mls/hr IV .Q10H [facility] PRN Reason: 8 MG/HR Last Admin: 09/21/16 02:56 Dose: 10 mls/hr Ceftriaxone Sodium 1 gm/ (Sodium Chloride) 100 mls @ 200 mls/hr IVPB Q12H [facility] Last Admin: 09/20/16 22:05 Dose: 200 mls/hr Insulin Glargine (Lantus) 10 unit SC HS [facility] Last Admin: 09/20/16 22:08 Dose: 10 units Insulin Human Regular (Novolin R) 0 unit SC ACHS [facility] PRN Reason: Protocol Last Admin: 09/21/16 07:58 Dose: 1 unit Isosorbide Mononitrate (Imdur) 30 mg PO DAILY [facility] Last Admin: 09/20/16 09:57 Dose: 30 mg Ketorolac Tromethamine (Toradol) 15 mg IVP Q6 PRN PRN Reason: moderate pain Magnesium Hydroxide (Milk Of Magnesia) 30 ml PO Q72 PRN PRN Reason: Constipation Metoprolol Succinate (Toprol Xl) 12.5 mg PO DAILY [facility] Last Admin: 09/20/16 12:31 Dose: 12.5 mg Ranolazine (Ranexa) 500 mg PO BID [facility] Last Admin: 09/20/16 17:58 Dose: 500 mg Rosuvastatin Calcium (Crestor) 20 mg PO HS [facility] Last Admin: 09/20/16 22:09 Dose: 20 mg Thiamine HCl (Vitamin B1 Tab) 100 mg PO DAILY [facility] Last Admin: 09/20/16 09:58 Dose: 100 mg - Labs Labs: 09/21/16 07:07 09/21/16 07:07 PT 13.8 SECONDS (9.7-12.2) H 09/16/16 20:54 INR 1.2 09/16/16 20:54 APTT 34 SECONDS (21-34) 09/16/16 20:54 - Extremities Exam Additional comments: o/stasis ulcer right ankle much improved . No infection noted . Vascular status intact . Neuro grossly intact . Mobility and muscle power decreased lower extremity b/ l . Assessment and Plan - Assessment and Plan (Free Text) Assessment: A/Stasis ulcer right ankle Plan: p/Apply Xeroform dressing right ankle wound .
--- NOTE | 2016-09-21 10:10 | CP.PCM.PN ---
Subjective - Date & Time of Evaluation Date of Evaluation: 09/21/16 Time of Evaluation: 09:00 - Subjective Subjective: clinically same Objective - Vital Signs/Intake and Output Vital Signs (last 24 hours): Temp Pulse Resp BP Pulse Ox 97.8 F 72 20 152/74 H 99 09/21/16 09:06 09/21/16 09:06 09/21/16 09:06 09/21/16 09:06 09/21/16 09:06 Intake and Output: 09/21/16 09/21/16 06:59 18:59 Intake Total 320 Balance 320 - Medications Medications: Current Medications Aspirin (Aspirin) 325 mg PO DAILY [facility] Last Admin: 09/20/16 09:57 Dose: 325 mg Ferric Sodium Gluconate Complex (Ferrlecit) 125 mg IVPB DAILY [facility] Stop: 09/22/16 10:01 Last Admin: 09/20/16 10:08 Dose: 125 mg Folic Acid (Folic Acid) 1 mg PO DAILY [facility] Last Admin: 09/20/16 09:57 Dose: 1 mg Pantoprazole Sodium 80 mg/ (Sodium Chloride) 100 mls @ 10 mls/hr IV .Q10H [facility] PRN Reason: 8 MG/HR Last Admin: 09/21/16 02:56 Dose: 10 mls/hr Ceftriaxone Sodium 1 gm/ (Sodium Chloride) 100 mls @ 200 mls/hr IVPB Q12H [facility] Last Admin: 09/20/16 22:05 Dose: 200 mls/hr Insulin Glargine (Lantus) 10 unit SC HS [facility] Last Admin: 09/20/16 22:08 Dose: 10 units Insulin Human Regular (Novolin R) 0 unit SC ACHS [facility] PRN Reason: Protocol Last Admin: 09/21/16 07:58 Dose: 1 unit Isosorbide Mononitrate (Imdur) 30 mg PO DAILY [facility] Last Admin: 09/20/16 09:57 Dose: 30 mg Ketorolac Tromethamine (Toradol) 15 mg IVP Q6 PRN PRN Reason: moderate pain Magnesium Hydroxide (Milk Of Magnesia) 30 ml PO Q72 PRN PRN Reason: Constipation Metoprolol Succinate (Toprol Xl) 12.5 mg PO DAILY [facility] Last Admin: 09/20/16 12:31 Dose: 12.5 mg Ranolazine (Ranexa) 500 mg PO BID [facility] Last Admin: 09/20/16 17:58 Dose: 500 mg Rosuvastatin Calcium (Crestor) 20 mg PO HS [facility] Last Admin: 09/20/16 22:09 Dose: 20 mg Thiamine HCl (Vitamin B1 Tab) 100 mg PO DAILY [facility] Last Admin: 09/20/16 09:58 Dose: 100 mg - Labs Labs: 09/21/16 07:07 09/21/16 07:07 PT 13.8 SECONDS (9.7-12.2) H 09/16/16 20:54 INR 1.2 09/16/16 20:54 APTT 34 SECONDS (21-34) 09/16/16 20:54 - Constitutional Appears: Well - Head Exam Head Exam: ATRAUMATIC, NORMAL INSPECTION, NORMOCEPHALIC - Eye Exam Eye Exam: EOMI, Normal appearance, PERRL Pupil Exam: NORMAL ACCOMODATION, PERRL - ENT Exam ENT Exam: Mucous Membranes Moist, Normal Exam - Neck Exam Neck Exam: Full ROM, Normal Inspection. 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
--- NOTE | 2016-09-21 10:28 | CP.PCM.PN ---
<Ron Gallagher - Last Filed: 09/21/16 14:31> Subjective - Date & Time of Evaluation Date of Evaluation: 09/21/16 Time of Evaluation: 09:15 - Subjective Subjective: Medicine Note- Dr. Ramírez's service Patient was seen and examined at bedside. Patient currently reports no acute complaints. No events overnight, per nursing. Objective - Vital Signs/Intake and Output Vital Signs (last 24 hours): Temp Pulse Resp BP Pulse Ox 97.8 F 72 20 152/74 H 99 09/21/16 09:06 09/21/16 09:06 09/21/16 09:06 09/21/16 09:06 09/21/16 09:06 Intake and Output: 09/21/16 09/21/16 06:59 18:59 Intake Total 320 Balance 320 - Medications Medications: Current Medications Aspirin (Aspirin) 325 mg PO DAILY [facility] Last Admin: 09/20/16 09:57 Dose: 325 mg Ferric Sodium Gluconate Complex (Ferrlecit) 125 mg IVPB DAILY [facility] Stop: 09/22/16 10:01 Last Admin: 09/20/16 10:08 Dose: 125 mg Folic Acid (Folic Acid) 1 mg PO DAILY [facility] Last Admin: 09/20/16 09:57 Dose: 1 mg Pantoprazole Sodium 80 mg/ (Sodium Chloride) 100 mls @ 10 mls/hr IV .Q10H [facility] PRN Reason: 8 MG/HR Last Admin: 09/21/16 02:56 Dose: 10 mls/hr Ceftriaxone Sodium 1 gm/ (Sodium Chloride) 100 mls @ 200 mls/hr IVPB Q12H [facility] Last Admin: 09/20/16 22:05 Dose: 200 mls/hr Insulin Glargine (Lantus) 10 unit SC HS [facility] Last Admin: 09/20/16 22:08 Dose: 10 units Insulin Human Regular (Novolin R) 0 unit SC ACHS [facility] PRN Reason: Protocol Last Admin: 09/21/16 07:58 Dose: 1 unit Isosorbide Mononitrate (Imdur) 30 mg PO DAILY [facility] Last Admin: 09/20/16 09:57 Dose: 30 mg Ketorolac Tromethamine (Toradol) 15 mg IVP Q6 PRN PRN Reason: moderate pain Magnesium Hydroxide (Milk Of Magnesia) 30 ml PO Q72 PRN PRN Reason: Constipation Metoprolol Succinate (Toprol Xl) 12.5 mg PO DAILY [facility] Last Admin: 09/20/16 12:31 Dose: 12.5 mg Ranolazine (Ranexa) 500 mg PO BID [facility] Last Admin: 09/20/16 17:58 Dose: 500 mg Rosuvastatin Calcium (Crestor) 20 mg PO HS [facility] Last Admin: 09/20/16 22:09 Dose: 20 mg Thiamine HCl (Vitamin B1 Tab) 100 mg PO DAILY [facility] Last Admin: 09/20/16 09:58 Dose: 100 mg - Labs Labs: 09/21/16 07:07 09/21/16 07:07 PT 13.8 SECONDS (9.7-12.2) H 09/16/16 20:54 INR 1.2 09/16/16 20:54 APTT 34 SECONDS (21-34) 09/16/16 20:54 - Constitutional Appears: Non-toxic, No Acute Distress - Head Exam Head Exam: ATRAUMATIC, NORMAL INSPECTION, NORMOCEPHALIC - Eye Exam Pupil Exam: NORMAL ACCOMODATION, PERRL - ENT Exam ENT Exam: Mucous Membranes Moist - Respiratory Exam Respiratory Exam: Clear to Ausculation Bilateral, NORMAL BREATHING PATTERN. absent: Prolonged Expiratory Phase, Rales, Rhonchi, Wheezes - Cardiovascular Exam Cardiovascular Exam: REGULAR RHYTHM, +S1, +S2 - GI/Abdominal Exam GI & Abdominal Exam: Soft, Normal Bowel Sounds. absent: Tenderness, Diminished Bowel Sounds, Hypoactive Bowel Sounds, Pulsatile Mass - Extremities Exam Extremities Exam: Normal Capillary Refill, Normal Inspection - Neurological Exam Neurological Exam: Alert, Awake, Oriented x3 - Psychiatric Exam Psychiatric exam: Normal Affect, Normal Mood - Skin Skin Exam: Dry, Intact, Normal Color, Warm Assessment and Plan - Assessment and Plan (Free Text) Assessment: Hemoptysis 40ml red blood reported at group home per ED note. No more episodes in hospital. Dr. Ross and Dario consulted, help appreciated. CXR showed RUL infiltrate. Procalcitonin level low. Rocephin 1gm IVPB Q12h started 09/17. CT angio showed RUL pneumonia (see full report). Protonix drip @8mg/hr. Pending quantiferon gold test. s/p bronchoscopy- per Dr. Ross, if bronchial wash cultures / AFB return negative , isolation is to be discontinued. Pancytopenia Neutropenic precautions. Heme/onc dr. Nguyen consulted. IV Ferrlecit. Possible bone marrow biopsy if blood counts do not recover. Right foot infection Podiatry Dr. Ramirez consulted, help appreciated. Left arm swelling Venous doppler showed left arm cephalic vein thrombosis. Vascular Dr. Lugo consulted, help appreciated. Symptomatic treatment for now. DM Lantus 10U SC HS RISS, accucheck. Prophylactic measure Protonix drip. SCD and HepSQ contraindicated. Management per Dr. Ramírez. <Santiago Ramírez S - Last Filed: 09/29/16 09:22> Objective - Vital Signs/Intake and Output Vital Signs (last 24 hours): Temp Pulse Resp BP Pulse Ox 97.5 F L 70 20 155/85 H 98 09/29/16 08:10 09/29/16 08:10 09/29/16 08:10 09/29/16 08:10 09/29/16 08:10 Intake and Output: 09/29/16 09/29/16 06:59 18:59 Intake Total 840 Output Total 400 Balance 440 - Medications Medications: Current Medications Aspirin (Aspirin) 325 mg PO DAILY [facility] Last Admin: 09/28/16 09:43 Dose: 325 mg Folic Acid (Folic Acid) 1 mg PO DAILY [facility] Last Admin: 09/28/16 09:43 Dose: 1 mg Ceftriaxone Sodium 1 gm/ (Sodium Chloride) 100 mls @ 200 mls/hr IVPB Q12H [facility] Last Admin: 09/28/16 21:41 Dose: 200 mls/hr Insulin Glargine (Lantus) 10 unit SC HS [facility] Last Admin: 09/28/16 21:47 Dose: 10 units Insulin Human Regular (Novolin R) 0 unit SC ACHS [facility] PRN Reason: Protocol Last Admin: 09/29/16 07:59 Dose: Not Given Isosorbide Mononitrate (Imdur) 30 mg PO DAILY [facility] Last Admin: 09/28/16 09:42 Dose: 30 mg Lactic Acid (Lac-Hydrin 12% Lotion (225 G)) 0 gm EXT BID [facility] Last Admin: 09/28/16 18:28 Dose: 1 applic Magnesium Hydroxide (Milk Of Magnesia) 30 ml PO Q72 PRN PRN Reason: Constipation Metoprolol Succinate (Toprol Xl) 12.5 mg PO DAILY [facility] Last Admin: 09/28/16 09:45 Dose: 12.5 mg Pantoprazole Sodium (Protonix Ec Tab) 40 mg PO DAILY [facility] Last Admin: 09/28/16 09:42 Dose: 40 mg Ranolazine (Ranexa) 500 mg PO BID [facility] Last Admin: 09/28/16 18:38 Dose: 500 mg Rosuvastatin Calcium (Crestor) 20 mg PO HS [facility] Last Admin: 09/28/16 21:40 Dose: 20 mg Thiamine HCl (Vitamin B1 Tab) 100 mg PO DAILY [facility] Last Admin: 09/28/16 09:43 Dose: 100 mg - Labs Labs: 09/29/16 07:20 09/29/16 07:20 PT 13.8 SECONDS (9.7-12.2) H 09/16/16 20:54 INR 1.2 09/16/16 20:54 APTT 34 SECONDS (21-34) 09/16/16 20:54 Assessment and Plan (1) Gastrointestinal hemorrhage Status: Acute (2) Pneumonia Status: Acute (3) Anemia Status: Acute (4) Chest pain Status: Acute (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 Status: Acute (6) Diabetes mellitus, new onset Status: Acute (7) Infected ulcer of skin Status: Acute (8) PAD (peripheral artery disease) Status: Acute (9) Pancytopenia Status: Acute (10) Prophylactic measure Status: Acute (11) CAD (coronary artery disease) Status: Chronic (12) Diabetes mellitus Status: Chronic Attending/Attestation - Attestation I have personally seen and examined this patient.: Yes I have fully participated in the care of the patient.: Yes I have reviewed all pertinent clinical information, including history, physical exam and plan: Yes Notes (Text): admitted iwth mutlile issues iwth consutlation treatmentof rpneumonia wound on foot and pancytopenia
[2016-09-21] MEDS: Ranolazine 500 mg Extended Release Tablets PO SCH ×2 (11:45→18:50)
[2016-09-21] MEDS: Ferric Sodium Gluconat Complex 62.5 mg/5 ml Vial IVPB SCH (11:46)
[2016-09-21] MEDS: Metoprolol Succinate 12.5 mg XL PO SCH (11:47)
--- NOTE | 2016-09-21 13:24 | CP.PCM.PN ---
Subjective - Date & Time of Evaluation Date of Evaluation: 09/21/16 Time of Evaluation: 09:00 - Subjective Subjective: Patient seen and examined No shortness of breath Slight cough with no hemoptysis Afebrile Bronchial washings negative for AFB Objective - Vital Signs/Intake and Output Vital Signs (last 24 hours): Temp Pulse Resp BP Pulse Ox 97.8 F 72 20 152/74 H 99 09/21/16 09:06 09/21/16 09:06 09/21/16 09:06 09/21/16 09:06 09/21/16 09:06 Intake and Output: 09/21/16 09/21/16 06:59 18:59 Intake Total 320 Balance 320 - Medications Medications: Current Medications Aspirin (Aspirin) 325 mg PO DAILY [facility] Last Admin: 09/21/16 11:45 Dose: 325 mg Ferric Sodium Gluconate Complex (Ferrlecit) 125 mg IVPB DAILY [facility] Stop: 09/22/16 10:01 Last Admin: 09/21/16 11:46 Dose: 125 mg Folic Acid (Folic Acid) 1 mg PO DAILY [facility] Last Admin: 09/21/16 11:47 Dose: 1 mg Pantoprazole Sodium 80 mg/ (Sodium Chloride) 100 mls @ 10 mls/hr IV .Q10H [facility] PRN Reason: 8 MG/HR Last Admin: 09/21/16 02:56 Dose: 10 mls/hr Ceftriaxone Sodium 1 gm/ (Sodium Chloride) 100 mls @ 200 mls/hr IVPB Q12H [facility] Last Admin: 09/21/16 11:41 Dose: 200 mls/hr Insulin Glargine (Lantus) 10 unit SC HS [facility] Last Admin: 09/20/16 22:08 Dose: 10 units Insulin Human Regular (Novolin R) 0 unit SC ACHS [facility] PRN Reason: Protocol Last Admin: 09/21/16 12:06 Dose: 4 unit Isosorbide Mononitrate (Imdur) 30 mg PO DAILY [facility] Last Admin: 09/21/16 11:48 Dose: 30 mg Ketorolac Tromethamine (Toradol) 15 mg IVP Q6 PRN PRN Reason: moderate pain Magnesium Hydroxide (Milk Of Magnesia) 30 ml PO Q72 PRN PRN Reason: Constipation Metoprolol Succinate (Toprol Xl) 12.5 mg PO DAILY [facility] Last Admin: 09/21/16 11:47 Dose: 12.5 mg Ranolazine (Ranexa) 500 mg PO BID [facility] Last Admin: 09/21/16 11:45 Dose: 500 mg Rosuvastatin Calcium (Crestor) 20 mg PO HS [facility] Last Admin: 09/20/16 22:09 Dose: 20 mg Thiamine HCl (Vitamin B1 Tab) 100 mg PO DAILY [facility] Last Admin: 09/21/16 11:45 Dose: 100 mg - Labs Labs: 09/21/16 07:07 09/21/16 07:07 PT 13.8 SECONDS (9.7-12.2) H 09/16/16 20:54 INR 1.2 09/16/16 20:54 APTT 34 SECONDS (21-34) 09/16/16 20:54 - Head Exam Head Exam: ATRAUMATIC, NORMOCEPHALIC - Eye Exam Eye Exam: Normal appearance - ENT Exam ENT Exam: Mucous Membranes Moist - Neck Exam Neck Exam: Normal Inspection - Respiratory Exam Respiratory Exam: Clear to Ausculation Bilateral Assessment and Plan (1) Pneumonia Assessment & Plan: Continue treatment for pneumonia and discontinue isolation Status: Acute
[2016-09-21] MEDS: (Lantus) Insulin Glargine, Recombinant SC SCH (21:51)
[2016-09-22 07:20] LABS: BASO % 0.5 % (0.0-2.0); EOS # 0.1 K/uL (0.0-0.7); EOS % 6.2 % (0.0-4.0); HEMATOCRIT 23.4 % (35.0-51.0); LYMPH # 0.9 K/uL (1.0-4.3); LYMPH % 57.7 % (20.0-40.0); MEAN CELL VOLUME 77.6 fL (80.0-94.0); MEAN CORPUSCULAR HEMOGLOBIN 25.9 pg (27.0-31.0); MEAN CORPUSCULAR HGB CONC 33.3 g/dL (33.0-37.0); MEAN PLATELET VOLUME 9.6 fL (7.2-11.7); MONO # 0.4 K/uL (0.0-0.8); MONO % 21.7 % (0.0-10.0); PLATELET COUNT 100 K/uL (130-400); RED CELL DISTRIBUTION WIDTH 20.6 % (11.5-14.5)
[2016-09-22] MEDS: (Novolin R) Insulin Human Regular 100 units/ml vial SC SCH ×4 (07:30→22:00)
[2016-09-22 07:42] LABS: CHLORIDE 104 mmol/L (98-107)
[2016-09-22 07:43] LABS: POTASSIUM 3.8 mmol/L (3.6-5.2); SODIUM 138 mmol/L (132-148)
[2016-09-22 07:45] LABS: BILIRUBIN,TOTAL 0.6 mg/dL (0.2-1.3); GFR AFRICAN-AMERICAN > 60
[2016-09-22 07:46] LABS: ALB/GLOB RATIO 0.8 (1.0-2.1); ALKALINE PHOSPHATASE 93 U/L (38-126); ALT/SGPT 13 U/L (21-72); AST/SGOT 14 U/L (17-59); BLOOD UREA NITROGEN 16 mg/dL (9-20); CALCIUM 8.4 mg/dl (8.6-10.4); CARBON DIOXIDE 27 mmol/L (22-30); GLUCOSE,RANDOM 122 mg/dL (75-110); TOTAL PROTEIN 6.9 g/dL (6.3-8.3)
[2016-09-22 07:50] LABS: WHITE BLOOD COUNT 1.6 K/uL (4.8-10.8)
[2016-09-22 09:52] LABS: EOSINOPHIL 6 % (0-4); NEUTROPHIL 14 % (50-75); TOTAL CELLS COUNTED 100
[2016-09-22] MEDS: Ranolazine 500 mg Extended Release Tablets PO SCH ×2 (10:00→18:01)
[2016-09-22] MEDS: Metoprolol Succinate 12.5 mg XL PO SCH (10:00)
[2016-09-22] MEDS: Pantoprazole 40 mg EC Tab PO SCH (10:00)
[2016-09-22] MEDS: Ferric Sodium Gluconat Complex 62.5 mg/5 ml Vial IVPB SCH (10:05)
--- NOTE | 2016-09-22 13:04 | CP.PCM.PN ---
Subjective - Date & Time of Evaluation Date of Evaluation: 09/22/16 Time of Evaluation: 10:10 - Subjective Subjective: Patient seen and evaluated at bedside. Patient is resting comfortably, in NAD. Patient has bandage in place to the right lower extremity. He denies pain to the wound site at this time. Respiratory contact precautions observed Objective - Vital Signs/Intake and Output Vital Signs (last 24 hours): Temp Pulse Resp BP Pulse Ox 97.7 F 69 20 150/86 96 09/22/16 08:07 09/22/16 08:07 09/22/16 08:07 09/22/16 08:07 09/22/16 08:07 Intake and Output: 09/22/16 09/22/16 06:59 18:59 Intake Total 850 Output Total 400 Balance 450 - Medications Medications: Current Medications Aspirin (Aspirin) 325 mg PO DAILY [facility] Last Admin: 09/22/16 10:00 Dose: 325 mg Folic Acid (Folic Acid) 1 mg PO DAILY [facility] Last Admin: 09/22/16 10:00 Dose: 1 mg Ceftriaxone Sodium 1 gm/ (Sodium Chloride) 100 mls @ 200 mls/hr IVPB Q12H [facility] Last Admin: 09/22/16 10:10 Dose: 200 mls/hr Insulin Glargine (Lantus) 10 unit SC HS [facility] Last Admin: 09/21/16 21:51 Dose: 10 units Insulin Human Regular (Novolin R) 0 unit SC ACHS [facility] PRN Reason: Protocol Last Admin: 09/22/16 07:30 Dose: Not Given Isosorbide Mononitrate (Imdur) 30 mg PO DAILY [facility] Last Admin: 09/22/16 10:00 Dose: 30 mg Ketorolac Tromethamine (Toradol) 15 mg IVP Q6 PRN PRN Reason: moderate pain Magnesium Hydroxide (Milk Of Magnesia) 30 ml PO Q72 PRN PRN Reason: Constipation Metoprolol Succinate (Toprol Xl) 12.5 mg PO DAILY [facility] Last Admin: 09/22/16 10:00 Dose: 12.5 mg Pantoprazole Sodium (Protonix Ec Tab) 40 mg PO DAILY [facility] Last Admin: 09/22/16 10:00 Dose: 40 mg Ranolazine (Ranexa) 500 mg PO BID [facility] Last Admin: 09/22/16 10:00 Dose: 500 mg Rosuvastatin Calcium (Crestor) 20 mg PO HS [facility] Last Admin: 09/21/16 21:49 Dose: 20 mg Thiamine HCl (Vitamin B1 Tab) 100 mg PO DAILY [facility] Last Admin: 09/22/16 10:00 Dose: 100 mg - Labs Labs: 09/22/16 07:07 09/22/16 07:07 PT 13.8 SECONDS (9.7-12.2) H 09/16/16 20:54 INR 1.2 09/16/16 20:54 APTT 34 SECONDS (21-34) 09/16/16 20:54 - Constitutional Appears: Non-toxic, No Acute Distress - Extremities Exam Additional comments: DERMATOLOGIC: Right lower extremity anterior leg ulceration, does not probe deep, granular base, mild serous drainage, no purulene, no undermining, no erythema or tracking present. The surrounding skin is intact. There is xerosis noted bilaterally. VASCULAR: DP/PT pulses 2/4, SPORTS RECRUITER<3 seconds, skin temperature is normal NEUROLOGIC: Gross sensation intact, motor function intact ORTHOPEDIC: Mild pain on palpation to the wound site - Neurological Exam Neurological Exam: Alert, Awake, Oriented x3 - Psychiatric Exam Psychiatric exam: Normal Affect, Normal Mood Assessment and Plan - Assessment and Plan (Free Text) Assessment: 71 year old male POD #12 for right anterior leg wound debridement of infected diabetic leg ulcer. (DOS: 09/10/16) Plan: Patient seen and evaluated. Charts labs and vitals reviewed. WBC=1.6K Discussed with attending, Dr. Ramirez who endorsed the following plan. Patients right leg dressed with xeroform, DSD Patient stable per podiatry at this time Podiatry will continue to follow while in house
--- NOTE | 2016-09-22 14:35 | CP.PCM.PN ---
Subjective - Date & Time of Evaluation Date of Evaluation: 09/22/16 Time of Evaluation: 09:00 - Subjective Subjective: clinically same Objective - Vital Signs/Intake and Output Vital Signs (last 24 hours): Temp Pulse Resp BP Pulse Ox 97.7 F 69 20 150/86 96 09/22/16 08:07 09/22/16 08:07 09/22/16 08:07 09/22/16 08:07 09/22/16 08:07 Intake and Output: 09/22/16 09/22/16 06:59 18:59 Intake Total 850 Output Total 400 Balance 450 - Medications Medications: Current Medications Aspirin (Aspirin) 325 mg PO DAILY [facility] Last Admin: 09/22/16 10:00 Dose: 325 mg Folic Acid (Folic Acid) 1 mg PO DAILY [facility] Last Admin: 09/22/16 10:00 Dose: 1 mg Ceftriaxone Sodium 1 gm/ (Sodium Chloride) 100 mls @ 200 mls/hr IVPB Q12H [facility] Last Admin: 09/22/16 10:10 Dose: 200 mls/hr Insulin Glargine (Lantus) 10 unit SC HS [facility] Last Admin: 09/21/16 21:51 Dose: 10 units Insulin Human Regular (Novolin R) 0 unit SC ACHS [facility] PRN Reason: Protocol Last Admin: 09/22/16 11:30 Dose: 2 unit Isosorbide Mononitrate (Imdur) 30 mg PO DAILY [facility] Last Admin: 09/22/16 10:00 Dose: 30 mg Ketorolac Tromethamine (Toradol) 15 mg IVP Q6 PRN PRN Reason: moderate pain Magnesium Hydroxide (Milk Of Magnesia) 30 ml PO Q72 PRN PRN Reason: Constipation Metoprolol Succinate (Toprol Xl) 12.5 mg PO DAILY [facility] Last Admin: 09/22/16 10:00 Dose: 12.5 mg Pantoprazole Sodium (Protonix Ec Tab) 40 mg PO DAILY [facility] Last Admin: 09/22/16 10:00 Dose: 40 mg Ranolazine (Ranexa) 500 mg PO BID [facility] Last Admin: 09/22/16 10:00 Dose: 500 mg Rosuvastatin Calcium (Crestor) 20 mg PO HS [facility] Last Admin: 09/21/16 21:49 Dose: 20 mg Thiamine HCl (Vitamin B1 Tab) 100 mg PO DAILY [facility] Last Admin: 09/22/16 10:00 Dose: 100 mg - Labs Labs: 09/22/16 07:07 09/22/16 07:07 PT 13.8 SECONDS (9.7-12.2) H 09/16/16 20:54 INR 1.2 09/16/16 20:54 APTT 34 SECONDS (21-34) 09/16/16 20:54 - Constitutional Appears: Well - Head Exam Head Exam: ATRAUMATIC, NORMAL INSPECTION, NORMOCEPHALIC - Eye Exam Eye Exam: EOMI, Normal appearance, PERRL Pupil Exam: NORMAL ACCOMODATION, PERRL - ENT Exam ENT Exam: Mucous Membranes Moist, Normal Exam - Neck Exam Neck Exam: Full ROM, Normal Inspection. 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
--- NOTE | 2016-09-22 17:52 | CP.PCM.PN ---
Objective - Vital Signs/Intake and Output Vital Signs (last 24 hours): Temp Pulse Resp BP Pulse Ox 97.8 F 61 20 154/65 H 97 09/22/16 15:00 09/22/16 15:00 09/22/16 15:00 09/22/16 15:00 09/22/16 15:00 Intake and Output: 09/22/16 09/22/16 06:59 18:59 Intake Total 850 Output Total 400 Balance 450 - Medications Medications: Current Medications Aspirin (Aspirin) 325 mg PO DAILY [facility] Last Admin: 09/22/16 10:00 Dose: 325 mg Folic Acid (Folic Acid) 1 mg PO DAILY [facility] Last Admin: 09/22/16 10:00 Dose: 1 mg Ceftriaxone Sodium 1 gm/ (Sodium Chloride) 100 mls @ 200 mls/hr IVPB Q12H [facility] Last Admin: 09/22/16 10:10 Dose: 200 mls/hr Insulin Glargine (Lantus) 10 unit SC HS [facility] Last Admin: 09/21/16 21:51 Dose: 10 units Insulin Human Regular (Novolin R) 0 unit SC [facility] PRN Reason: Protocol Last Admin: 09/22/16 11:30 Dose: 2 unit Isosorbide Mononitrate (Imdur) 30 mg PO DAILY [facility] Last Admin: 09/22/16 10:00 Dose: 30 mg Ketorolac Tromethamine (Toradol) 15 mg IVP Q6 PRN PRN Reason: moderate pain Magnesium Hydroxide (Milk Of Magnesia) 30 ml PO Q72 PRN PRN Reason: Constipation Metoprolol Succinate (Toprol Xl) 12.5 mg PO DAILY [facility] Last Admin: 09/22/16 10:00 Dose: 12.5 mg Pantoprazole Sodium (Protonix Ec Tab) 40 mg PO DAILY [facility] Last Admin: 09/22/16 10:00 Dose: 40 mg Ranolazine (Ranexa) 500 mg PO BID [facility] Last Admin: 09/22/16 10:00 Dose: 500 mg Rosuvastatin Calcium (Crestor) 20 mg PO HS [facility] Last Admin: 09/21/16 21:49 Dose: 20 mg Thiamine HCl (Vitamin B1 Tab) 100 mg PO DAILY [facility] Last Admin: 09/22/16 10:00 Dose: 100 mg - Labs Labs: 09/22/16 07:07 09/22/16 07:07 PT 13.8 SECONDS (9.7-12.2) H 09/16/16 20:54 INR 1.2 09/16/16 20:54 APTT 34 SECONDS (21-34) 09/16/16 20:54 Assessment and Plan (1) Pneumonia Status: Acute
[2016-09-22] MEDS: (Lantus) Insulin Glargine, Recombinant SC SCH (22:00)
[2016-09-23 07:07] LABS: BASO % 0.7 % (0.0-2.0); EOS # 0.1 K/uL (0.0-0.7); EOS % 5.5 % (0.0-4.0); HEMATOCRIT 24.9 % (35.0-51.0); LYMPH # 1.1 K/uL (1.0-4.3); LYMPH % 56.2 % (20.0-40.0); MEAN CORPUSCULAR HEMOGLOBIN 26.2 pg (27.0-31.0); MEAN CORPUSCULAR HGB CONC 33.5 g/dL (33.0-37.0); MEAN PLATELET VOLUME 9.6 fL (7.2-11.7); MONO # 0.4 K/uL (0.0-0.8); MONO % 22.8 % (0.0-10.0); NRBC % 0.4 % (0.0-2.0); PLATELET COUNT 106 K/uL (130-400); RED CELL DISTRIBUTION WIDTH 20.5 % (11.5-14.5)
[2016-09-23 07:11] LABS: WHITE BLOOD COUNT 1.9 K/uL (4.8-10.8)
[2016-09-23 07:23] LABS: CHLORIDE 102 mmol/L (98-107); POTASSIUM 3.8 mmol/L (3.6-5.2); SODIUM 136 mmol/L (132-148)
[2016-09-23 07:25] LABS: BILIRUBIN,TOTAL < 0.1 mg/dL (0.2-1.3); CARBON DIOXIDE 25 mmol/L (22-30); GFR AFRICAN-AMERICAN > 60
[2016-09-23 07:26] LABS: ALB/GLOB RATIO 0.7 (1.0-2.1); ALKALINE PHOSPHATASE 92 U/L (38-126); ALT/SGPT 19 U/L (21-72); AST/SGOT 14 U/L (17-59); BLOOD UREA NITROGEN 14 mg/dL (9-20); CALCIUM 8.7 mg/dl (8.6-10.4); GLUCOSE,RANDOM 137 mg/dL (75-110); TOTAL PROTEIN 7.4 g/dL (6.3-8.3)
[2016-09-23] MEDS: (Novolin R) Insulin Human Regular 100 units/ml vial SC SCH ×4 (07:30→22:08)
[2016-09-23 09:48] LABS: EOSINOPHIL 6 % (0-4); NEUTROPHIL 22 % (50-75); TOTAL CELLS COUNTED 50
[2016-09-23 09:52] LABS: LARGE PLATELETS PRESENT
[2016-09-23] MEDS: Ranolazine 500 mg Extended Release Tablets PO SCH ×2 (10:21→17:42)
[2016-09-23] MEDS: Metoprolol Succinate 12.5 mg XL PO SCH (10:22)
[2016-09-23] MEDS: Pantoprazole 40 mg EC Tab PO SCH (10:22)
--- NOTE | 2016-09-23 10:35 | CP.PCM.PN ---
Subjective - Date & Time of Evaluation Date of Evaluation: 09/23/16 Time of Evaluation: 10:45 - Subjective Subjective: Patient seen and evaluated at bedside. Patient is resting comfortably, in NAD. Patient has bandage in place to the right lower extremity. He denies pain to the wound site at this time. Respiratory contact precautions observed Objective - Vital Signs/Intake and Output Vital Signs (last 24 hours): Temp Pulse Resp BP Pulse Ox 98.1 F 71 20 163/80 H 98 09/23/16 08:22 09/23/16 08:22 09/23/16 08:22 09/23/16 08:22 09/23/16 08:22 Intake and Output: 09/23/16 09/23/16 06:59 18:59 Intake Total 740 Output Total 500 Balance 240 - Medications Medications: Current Medications Aspirin (Aspirin) 325 mg PO DAILY [facility] Last Admin: 09/23/16 10:21 Dose: 325 mg Folic Acid (Folic Acid) 1 mg PO DAILY [facility] Last Admin: 09/23/16 10:27 Dose: 1 mg Ceftriaxone Sodium 1 gm/ (Sodium Chloride) 100 mls @ 200 mls/hr IVPB Q12H [facility] Last Admin: 09/23/16 10:24 Dose: 200 mls/hr Insulin Glargine (Lantus) 10 unit SC HS [facility] Last Admin: 09/22/16 22:00 Dose: 10 units Insulin Human Regular (Novolin R) 0 unit SC ACHS [facility] PRN Reason: Protocol Last Admin: 09/23/16 07:30 Dose: 1 unit Isosorbide Mononitrate (Imdur) 30 mg PO DAILY [facility] Last Admin: 09/23/16 10:21 Dose: 30 mg Ketorolac Tromethamine (Toradol) 15 mg IVP Q6 PRN PRN Reason: moderate pain Magnesium Hydroxide (Milk Of Magnesia) 30 ml PO Q72 PRN PRN Reason: Constipation Metoprolol Succinate (Toprol Xl) 12.5 mg PO DAILY [facility] Last Admin: 09/23/16 10:22 Dose: 12.5 mg Pantoprazole Sodium (Protonix Ec Tab) 40 mg PO DAILY [facility] Last Admin: 09/23/16 10:22 Dose: 40 mg Ranolazine (Ranexa) 500 mg PO BID [facility] Last Admin: 09/23/16 10:21 Dose: 500 mg Rosuvastatin Calcium (Crestor) 20 mg PO HS [facility] Last Admin: 09/22/16 22:20 Dose: 20 mg Thiamine HCl (Vitamin B1 Tab) 100 mg PO DAILY [facility] Last Admin: 09/23/16 10:23 Dose: 100 mg - Labs Labs: 09/23/16 07:03 09/23/16 07:03 PT 13.8 SECONDS (9.7-12.2) H 09/16/16 20:54 INR 1.2 09/16/16 20:54 APTT 34 SECONDS (21-34) 09/16/16 20:54 - Constitutional Appears: Well, Non-toxic, No Acute Distress - Extremities Exam Additional comments: Right leg focused. Dressings lean dry and intact, serous drainage to out dressing layer. DERMATOLOGIC: Right lower extremity bryanna-lateral leg ulceration, does not probe deep, granular base with slough and biodurden, mild serous drainage, no purulene, no undermining, no erythema or tracking present. The surrounding skin is intact. There is xerosis noted bilaterally. VASCULAR: DP/PT pulses 2/4, TOBACCO SAMPLER<3 seconds, skin temperature is normal NEUROLOGIC: Gross sensation intact, motor function intact ORTHOPEDIC: Mild pain on palpation to the wound site - Neurological Exam Neurological Exam: Alert, Awake, Oriented x3 - Psychiatric Exam Psychiatric exam: Normal Affect, Normal Mood Assessment and Plan - Assessment and Plan (Free Text) Assessment: 71 year old male POD #13 for right anterior leg wound debridement of infected diabetic leg ulcer. (DOS: 09/10/16) Plan: Patient seen and evaluated. Charts labs and vitals reviewed. WBC=1.9K Discussed with attending, Dr. Ramriez who endorsed the following plan. Patients right leg ulcer was cleansed using saline and 4x4 of all slough, dressed with xeroform, ABD, & DSD. Patient stable per podiatry at this time Podiatry will continue to follow while in house
--- NOTE | 2016-09-23 14:12 | CP.PCM.PN ---
Subjective - Date & Time of Evaluation Date of Evaluation: 09/23/16 Time of Evaluation: 07:00 - Subjective Subjective: awake alert afebrile NAD AFB SMEARS NEG THUS FAR CONT RX Objective - Vital Signs/Intake and Output Vital Signs (last 24 hours): Temp Pulse Resp BP Pulse Ox 98.1 F 71 20 163/80 H 98 09/23/16 08:22 09/23/16 08:22 09/23/16 08:22 09/23/16 08:22 09/23/16 08:22 Intake and Output: 09/23/16 09/23/16 06:59 18:59 Intake Total 740 Output Total 500 Balance 240 - Medications Medications: Current Medications Aspirin (Aspirin) 325 mg PO DAILY [facility] Last Admin: 09/23/16 10:21 Dose: 325 mg Folic Acid (Folic Acid) 1 mg PO DAILY [facility] Last Admin: 09/23/16 10:27 Dose: 1 mg Ceftriaxone Sodium 1 gm/ (Sodium Chloride) 100 mls @ 200 mls/hr IVPB Q12H [facility] Last Admin: 09/23/16 10:24 Dose: 200 mls/hr Insulin Glargine (Lantus) 10 unit SC [facility] Last Admin: 09/22/16 22:00 Dose: 10 units Insulin Human Regular (Novolin R) 0 unit SC ACHS [facility] PRN Reason: Protocol Last Admin: 09/23/16 11:49 Dose: 2 unit Isosorbide Mononitrate (Imdur) 30 mg PO DAILY [facility] Last Admin: 09/23/16 10:21 Dose: 30 mg Magnesium Hydroxide (Milk Of Magnesia) 30 ml PO Q72 PRN PRN Reason: Constipation Metoprolol Succinate (Toprol Xl) 12.5 mg PO DAILY [facility] Last Admin: 09/23/16 10:22 Dose: 12.5 mg Pantoprazole Sodium (Protonix Ec Tab) 40 mg PO DAILY [facility] Last Admin: 09/23/16 10:22 Dose: 40 mg Ranolazine (Ranexa) 500 mg PO BID [facility] Last Admin: 09/23/16 10:21 Dose: 500 mg Rosuvastatin Calcium (Crestor) 20 mg PO HS [facility] Last Admin: 09/22/16 22:20 Dose: 20 mg Thiamine HCl (Vitamin B1 Tab) 100 mg PO DAILY [facility] Last Admin: 09/23/16 10:23 Dose: 100 mg - Labs Labs: 09/23/16 07:03 09/23/16 07:03 PT 13.8 SECONDS (9.7-12.2) H 09/16/16 20:54 INR 1.2 09/16/16 20:54 APTT 34 SECONDS (21-34) 09/16/16 20:54 - Constitutional Appears: Non-toxic, Chronically Ill - Head Exam Head Exam: ATRAUMATIC - Eye Exam Eye Exam: EOMI, PERRL. absent: Scleral icterus - ENT Exam ENT Exam: Mucous Membranes Dry - Neck Exam Neck Exam: absent: Lymphadenopathy - Respiratory Exam Respiratory Exam: Decreased Breath Sounds, Rhonchi - Cardiovascular Exam Cardiovascular Exam: REGULAR RHYTHM, +S1, +S2 - GI/Abdominal Exam GI & Abdominal Exam: Distended, Soft. absent: Tenderness - Rectal Exam Rectal Exam: Deferred - Exam Exam: NORMAL INSPECTION - Extremities Exam Extremities Exam: absent: Calf Tenderness, Pedal Edema - Back Exam Back Exam: absent: CVA tenderness (L), CVA tenderness (R), paraspinal tenderness - Neurological Exam Neurological Exam: Alert, Awake, Oriented x3 - Psychiatric Exam Psychiatric exam: Normal Mood - Skin Skin Exam: Dry Assessment and Plan (1) Diabetes mellitus with ulcer of ankle Status: Acute (2) Infected ulcer of skin Status: Acute (3) PAD (peripheral artery disease) Status: Acute (4) CAD (coronary artery disease) Status: Chronic - Assessment and Plan (Free Text) Assessment: CONT WOUND CARE AND IV RX AWAIT HEME ONC EVAL AND AFB SMEARS
--- NOTE | 2016-09-23 16:20 | CP.PCM.PN ---
Subjective - Date & Time of Evaluation Date of Evaluation: 09/23/16 Time of Evaluation: 08:40 - Subjective Subjective: Clinically same Objective - Vital Signs/Intake and Output Vital Signs (last 24 hours): Temp Pulse Resp BP Pulse Ox 98.1 F 71 20 163/80 H 98 09/23/16 08:22 09/23/16 08:22 09/23/16 08:22 09/23/16 08:22 09/23/16 08:22 Intake and Output: 09/23/16 09/23/16 06:59 18:59 Intake Total 740 Output Total 500 Balance 240 - Medications Medications: Current Medications Aspirin (Aspirin) 325 mg PO DAILY [facility] Last Admin: 09/23/16 10:21 Dose: 325 mg Folic Acid (Folic Acid) 1 mg PO DAILY [facility] Last Admin: 09/23/16 10:27 Dose: 1 mg Ceftriaxone Sodium 1 gm/ (Sodium Chloride) 100 mls @ 200 mls/hr IVPB Q12H [facility] Last Admin: 09/23/16 10:24 Dose: 200 mls/hr Insulin Glargine (Lantus) 10 unit SC [facility] Last Admin: 09/22/16 22:00 Dose: 10 units Insulin Human Regular (Novolin R) 0 unit SC [facility] PRN Reason: Protocol Last Admin: 09/23/16 11:49 Dose: 2 unit Isosorbide Mononitrate (Imdur) 30 mg PO DAILY [facility] Last Admin: 09/23/16 10:21 Dose: 30 mg Magnesium Hydroxide (Milk Of Magnesia) 30 ml PO Q72 PRN PRN Reason: Constipation Metoprolol Succinate (Toprol Xl) 12.5 mg PO DAILY [facility] Last Admin: 09/23/16 10:22 Dose: 12.5 mg Pantoprazole Sodium (Protonix Ec Tab) 40 mg PO DAILY [facility] Last Admin: 09/23/16 10:22 Dose: 40 mg Ranolazine (Ranexa) 500 mg PO BID [facility] Last Admin: 09/23/16 10:21 Dose: 500 mg Rosuvastatin Calcium (Crestor) 20 mg PO HS [facility] Last Admin: 09/22/16 22:20 Dose: 20 mg Thiamine HCl (Vitamin B1 Tab) 100 mg PO DAILY [facility] Last Admin: 09/23/16 10:23 Dose: 100 mg - Labs Labs: 09/23/16 07:03 09/23/16 07:03 PT 13.8 SECONDS (9.7-12.2) H 09/16/16 20:54 INR 1.2 09/16/16 20:54 APTT 34 SECONDS (21-34) 09/16/16 20:54 Assessment and Plan (1) Anemia Status: Acute (2) Bacteremia due to methicillin resistant Staphylococcus aureus Status: Acute (3) Chest pain Status: Acute (4) Coagulopathy Status: Acute (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 Status: Acute (6) Diabetes mellitus, new onset Status: Acute (7) Infected ulcer of skin Status: Acute (8) MDS (myelodysplastic syndrome) Status: Acute (9) Neutropenia Status: Acute (10) Non-STEMI (non-ST elevated myocardial infarction) Status: Acute (11) Non-healing ulcer of foot Status: Acute - Assessment and Plan (Free Text) Plan: Follow-up GI Follow-up hospice spiritual care coordinator Follow-up ID Continue antibiotics as ordered Protonix Thiamine Continue wound care
[2016-09-23] MEDS: (Lantus) Insulin Glargine, Recombinant SC SCH (22:07)
[2016-09-24 07:28] LABS: BASO % 0.5 % (0.0-2.0); EOS # 0.1 K/uL (0.0-0.7); EOS % 5.4 % (0.0-4.0); HEMATOCRIT 24.8 % (35.0-51.0); LYMPH # 0.9 K/uL (1.0-4.3); LYMPH % 46.8 % (20.0-40.0); MEAN CORPUSCULAR HEMOGLOBIN 26.4 pg (27.0-31.0); MEAN CORPUSCULAR HGB CONC 33.9 g/dL (33.0-37.0); MEAN PLATELET VOLUME 9.6 fL (7.2-11.7); MONO # 0.6 K/uL (0.0-0.8); MONO % 29.7 % (0.0-10.0); NRBC % 0.1 % (0.0-2.0); PLATELET COUNT 107 K/uL (130-400); RED CELL DISTRIBUTION WIDTH 20.6 % (11.5-14.5)
[2016-09-24 07:41] LABS: WHITE BLOOD COUNT 1.9 K/uL (4.8-10.8)
[2016-09-24] MEDS: (Novolin R) Insulin Human Regular 100 units/ml vial SC SCH ×4 (07:46→21:20)
[2016-09-24 08:00] LABS: CHLORIDE 102 mmol/L (98-107); SODIUM 137 mmol/L (132-148)
[2016-09-24 08:01] LABS: POTASSIUM 3.8 mmol/L (3.6-5.2)
[2016-09-24 08:03] LABS: ALB/GLOB RATIO 0.9 (1.0-2.1); ALKALINE PHOSPHATASE 91 U/L (38-126); AST/SGOT 16 U/L (17-59); BILIRUBIN,TOTAL 0.6 mg/dL (0.2-1.3); BLOOD UREA NITROGEN 16 mg/dL (9-20); CARBON DIOXIDE 26 mmol/L (22-30); GFR AFRICAN-AMERICAN > 60; TOTAL PROTEIN 7.3 g/dL (6.3-8.3)
[2016-09-24 08:04] LABS: ALT/SGPT 14 U/L (21-72); CALCIUM 8.6 mg/dl (8.6-10.4); GLUCOSE,RANDOM 114 mg/dL (75-110)
[2016-09-24 09:14] LABS: BASOPHIL 1 % (0-2); EOSINOPHIL 7 % (0-4); MYELOCYTE 1 % (0-0); NEUTROPHIL 11 % (50-75); TOTAL CELLS COUNTED 100
[2016-09-24] MEDS: Pantoprazole 40 mg EC Tab PO SCH (10:18)
[2016-09-24] MEDS: Ranolazine 500 mg Extended Release Tablets PO SCH ×2 (10:18→17:49)
[2016-09-24] MEDS: Metoprolol Succinate 12.5 mg XL PO SCH (10:19)
--- NOTE | 2016-09-24 10:22 | CP.PCM.PN ---
Subjective - Date & Time of Evaluation Date of Evaluation: 09/24/16 Time of Evaluation: 09:00 - Subjective Subjective: PGY2 on medicine Dr. Ramírez service: Pt seen and examined at bedside this morning. No acute events overnight. No current complaints. Objective - Vital Signs/Intake and Output Vital Signs (last 24 hours): Temp Pulse Resp BP Pulse Ox 98.6 F 78 20 128/68 98 09/24/16 08:19 09/24/16 08:19 09/24/16 08:19 09/24/16 08:19 09/24/16 08:19 Intake and Output: 09/24/16 09/24/16 06:59 18:59 Intake Total 700 580 Output Total 1000 Balance -300 580 - Medications Medications: Current Medications Aspirin (Aspirin) 325 mg PO DAILY REPLACED BY [facility] Last Admin: 09/23/16 10:21 Dose: 325 mg Folic Acid (Folic Acid) 1 mg PO DAILY REPLACED BY [facility] Last Admin: 09/23/16 10:27 Dose: 1 mg Ceftriaxone Sodium 1 gm/ (Sodium Chloride) 100 mls @ 200 mls/hr IVPB Q12H REPLACED BY [facility] Last Admin: 09/23/16 22:08 Dose: 200 mls/hr Insulin Glargine (Lantus) 10 unit SC [facility] Last Admin: 09/23/16 22:07 Dose: 10 units Insulin Human Regular (Novolin R) 0 unit SC ACHS REPLACED BY [facility] PRN Reason: Protocol Last Admin: 09/24/16 07:46 Dose: Not Given Isosorbide Mononitrate (Imdur) 30 mg PO DAILY REPLACED BY [facility] Last Admin: 09/23/16 10:21 Dose: 30 mg Magnesium Hydroxide (Milk Of Magnesia) 30 ml PO Q72 PRN PRN Reason: Constipation Metoprolol Succinate (Toprol Xl) 12.5 mg PO DAILY REPL[facility]ED BY [facility] Last Admin: 09/23/16 10:22 Dose: 12.5 mg Pantoprazole Sodium (Protonix Ec Tab) 40 mg PO DAILY REPLACED BY [facility] Last Admin: 09/23/16 10:22 Dose: 40 mg Ranolazine (Ranexa) 500 mg PO BID REPLACED BY [facility] Last Admin: 09/23/16 17:42 Dose: 500 mg Rosuvastatin Calcium (Crestor) 20 mg PO HS REPLACED BY [facility] Last Admin: 09/23/16 22:07 Dose: 20 mg Thiamine HCl (Vitamin B1 Tab) 100 mg PO DAILY REPLACED BY [facility] Last Admin: 09/23/16 10:23 Dose: 100 mg - Labs Labs: 09/24/16 07:12 09/24/16 07:12 PT 13.8 SECONDS (9.7-12.2) H 09/16/16 20:54 INR 1.2 09/16/16 20:54 APTT 34 SECONDS (21-34) 09/16/16 20:54 - Constitutional Appears: Non-toxic, No Acute Distress - Head Exam Head Exam: NORMOCEPHALIC - Eye Exam Eye Exam: Normal appearance Pupil Exam: NORMAL ACCOMODATION - ENT Exam ENT Exam: Mucous Membranes Moist - Respiratory Exam Respiratory Exam: Clear to Ausculation Bilateral, NORMAL BREATHING PATTERN. absent: Rhonchi, Wheezes - Cardiovascular Exam Cardiovascular Exam: REGULAR RHYTHM, +S1, +S2. absent: Gallop, Rubs - GI/Abdominal Exam GI & Abdominal Exam: Soft, Normal Bowel Sounds - Extremities Exam Extremities Exam: Tenderness Additional comments: RLE dressing c/d/i - Neurological Exam Neurological Exam: Alert, Awake, Oriented x3 - Psychiatric Exam Psychiatric exam: Normal Mood - Skin Skin Exam: Dry, Intact Assessment and Plan - Assessment and Plan (Free Text) Assessment: Hemoptysis 40ml red blood reported at long-term per ED note. No more episodes in hospital. Dr. Ross and Dario consulted, help appreciated. CXR showed RUL infiltrate. Procalcitonin level low. Rocephin 1gm IVPB Q12h started 09/17. CT angio showed RUL pneumonia (see full report). Quantiferon gold test negative. AFB stain negative. Pancytopenia Chronic. Standard neutropenic precautions. Heme/onc dr. Nguyen consulted. IV Ferrlecit. Pt can be discharged from heme/onc standpoint as per Dr. Nguyen. Pt to be followed outpatient for bone marrow biopsy. Right foot infection Podiatry Dr. Ramirez consulted, help appreciated. Left arm swelling Venous doppler showed left arm cephalic vein thrombosis. Vascular Dr. Lugo consulted, help appreciated. Symptomatic treatment for now. DM Lantus 10U SC HS RISS, accucheck. Prophylactic measure Protonix PO. SCD and HepSQ contraindicated. Management per Dr. Ramírez.
--- NOTE | 2016-09-24 11:57 | CP.PCM.PN ---
Subjective - Date & Time of Evaluation Date of Evaluation: 09/24/16 Time of Evaluation: 11:56 - Subjective Subjective: Patient seen and evaluated at bedside, NAD. Patient has no new complaints at this time, appears in good spirits. Denies n/v/f/c/sob, denies pain to the RLE. Bandage is c/d/i to right lower extremity. Objective - Vital Signs/Intake and Output Vital Signs (last 24 hours): Temp Pulse Resp BP Pulse Ox 98.6 F 78 20 128/68 98 09/24/16 08:19 09/24/16 08:19 09/24/16 08:19 09/24/16 08:19 09/24/16 08:19 Intake and Output: 09/24/16 09/24/16 06:59 18:59 Intake Total 700 580 Output Total 1000 Balance -300 580 - Medications Medications: Current Medications Aspirin (Aspirin) 325 mg PO DAILY [facility] Last Admin: 09/24/16 10:18 Dose: 325 mg Folic Acid (Folic Acid) 1 mg PO DAILY [facility] Last Admin: 09/24/16 10:18 Dose: 1 mg Ceftriaxone Sodium 1 gm/ (Sodium Chloride) 100 mls @ 200 mls/hr IVPB Q12H [facility] Last Admin: 09/24/16 10:18 Dose: 200 mls/hr Insulin Glargine (Lantus) 10 unit SC HS [facility] Last Admin: 09/23/16 22:07 Dose: 10 units Insulin Human Regular (Novolin R) 0 unit SC ACHS [facility] PRN Reason: Protocol Last Admin: 09/24/16 07:46 Dose: Not Given Isosorbide Mononitrate (Imdur) 30 mg PO DAILY [facility] Last Admin: 09/24/16 10:18 Dose: 30 mg Magnesium Hydroxide (Milk Of Magnesia) 30 ml PO Q72 PRN PRN Reason: Constipation Metoprolol Succinate (Toprol Xl) 12.5 mg PO DAILY [facility] Last Admin: 09/24/16 10:19 Dose: 12.5 mg Pantoprazole Sodium (Protonix Ec Tab) 40 mg PO DAILY [facility] Last Admin: 09/24/16 10:18 Dose: 40 mg Ranolazine (Ranexa) 500 mg PO BID [facility] Last Admin: 09/24/16 10:18 Dose: 500 mg Rosuvastatin Calcium (Crestor) 20 mg PO HS [facility] Last Admin: 09/23/16 22:07 Dose: 20 mg Thiamine HCl (Vitamin B1 Tab) 100 mg PO DAILY [facility] Last Admin: 09/24/16 10:18 Dose: 100 mg - Labs Labs: 09/24/16 07:12 09/24/16 07:12 PT 13.8 SECONDS (9.7-12.2) H 09/16/16 20:54 INR 1.2 09/16/16 20:54 APTT 34 SECONDS (21-34) 09/16/16 20:54 - Constitutional Appears: Well, Non-toxic, No Acute Distress - Neurological Exam Neurological Exam: Oriented x3 - Psychiatric Exam Psychiatric exam: Normal Affect, Normal Mood - Additional Findings Additional findings: DERMATOLOGIC: Right lower extremity anterior leg ulceration, does not probe deep, granular base, mild serous drainage, no purulene, no undermining, no erythema or tracking present. The surrounding skin is intact. There is xerosis noted bilaterally. VASCULAR: DP/PT pulses 2/4, ACCOUNT COLLECTOR<3 seconds, skin temperature is normal NEUROLOGIC: Gross sensation intact, motor function intact ORTHOPEDIC: Mild pain on palpation to the wound site Assessment and Plan - Assessment and Plan (Free Text) Assessment: 71 year old male with chronic right anterior leg ulceration Plan: Patient seen and evaluated, d/w attending Dr. Ramirez Patients wound cleansed with sterile saline, dressed with xeroform, DSD Wound stable at this time, improving Podiatry will continue to monitor while in house
--- NOTE | 2016-09-24 17:39 | CP.PCM.PN ---
Subjective - Date & Time of Evaluation Date of Evaluation: 09/24/16 Time of Evaluation: 09:00 - Subjective Subjective: clinically same Objective - Vital Signs/Intake and Output Vital Signs (last 24 hours): Temp Pulse Resp BP Pulse Ox 97.7 F 78 20 133/47 L 98 09/24/16 16:26 09/24/16 08:19 09/24/16 16:26 09/24/16 16:26 09/24/16 16:26 Intake and Output: 09/24/16 09/24/16 06:59 18:59 Intake Total 700 580 Output Total 1000 400 Balance -300 180 - Medications Medications: Current Medications Aspirin (Aspirin) 325 mg PO DAILY [facility] Last Admin: 09/24/16 10:18 Dose: 325 mg Folic Acid (Folic Acid) 1 mg PO DAILY [facility] Last Admin: 09/24/16 10:18 Dose: 1 mg Ceftriaxone Sodium 1 gm/ (Sodium Chloride) 100 mls @ 200 mls/hr IVPB Q12H [facility] Last Admin: 09/24/16 10:18 Dose: 200 mls/hr Insulin Glargine (Lantus) 10 unit SC [facility] Last Admin: 09/23/16 22:07 Dose: 10 units Insulin Human Regular (Novolin R) 0 unit SC [facility] PRN Reason: Protocol Last Admin: 09/24/16 12:49 Dose: Not Given Isosorbide Mononitrate (Imdur) 30 mg PO DAILY [facility] Last Admin: 09/24/16 10:18 Dose: 30 mg Magnesium Hydroxide (Milk Of Magnesia) 30 ml PO Q72 PRN PRN Reason: Constipation Metoprolol Succinate (Toprol Xl) 12.5 mg PO DAILY [facility] Last Admin: 09/24/16 10:19 Dose: 12.5 mg Pantoprazole Sodium (Protonix Ec Tab) 40 mg PO DAILY [facility] Last Admin: 09/24/16 10:18 Dose: 40 mg Ranolazine (Ranexa) 500 mg PO BID [facility] Last Admin: 09/24/16 10:18 Dose: 500 mg Rosuvastatin Calcium (Crestor) 20 mg PO HS [facility] Last Admin: 09/23/16 22:07 Dose: 20 mg Thiamine HCl (Vitamin B1 Tab) 100 mg PO DAILY [facility] Last Admin: 09/24/16 10:18 Dose: 100 mg - Labs Labs: 09/24/16 07:12 09/24/16 07:12 PT 13.8 SECONDS (9.7-12.2) H 09/16/16 20:54 INR 1.2 09/16/16 20:54 APTT 34 SECONDS (21-34) 09/16/16 20:54 - Constitutional Appears: Well - Head Exam Head Exam: ATRAUMATIC, NORMAL INSPECTION, NORMOCEPHALIC - Eye Exam Eye Exam: EOMI, Normal appearance, PERRL Pupil Exam: NORMAL ACCOMODATION, PERRL - ENT Exam ENT Exam: Mucous Membranes Moist, Normal Exam - Neck Exam Neck Exam: Full ROM, Normal Inspection. absent: Lymphadenopathy - Respiratory Exam Respiratory Exam: Decreased Breath Sounds - Cardiovascular Exam Cardiovascular Exam: REGULAR RHYTHM, +S1, +S2 - GI/Abdominal Exam GI & Abdominal Exam: Soft, Diminished Bowel Sounds - Rectal Exam Rectal Exam: Deferred Assessment and Plan (1) Anemia Status: Acute (2) Chest pain Status: Acute (3) Diabetes mellitus with ulcer of ankle Status: Acute (4) Diabetes mellitus, new onset Status: Acute (5) Gastrointestinal hemorrhage Status: Acute (6) Infected ulcer of skin Status: Acute (7) PAD (peripheral artery disease) Status: Acute (8) Pancytopenia Status: Acute (9) Pneumonia Status: Acute (10) Prophylactic measure Status: Acute (11) CAD (coronary artery disease) Status: Chronic (12) Diabetes mellitus Status: Chronic - Assessment and Plan (Free Text) Plan: Follow-up GI Follow-up tours captain Follow-up ID Continue antibiotics as ordered Protonix Thiamine Continue wound care
--- NOTE | 2016-09-24 18:27 | CP.PCM.PN ---
Subjective - Date & Time of Evaluation Date of Evaluation: 09/24/16 Time of Evaluation: 09:30 - Subjective Subjective: patient seen and examined. Sitting comfortably in no acute distress Still complaining of cough but no hemoptysis AFB negative bronchial washing Objective - Vital Signs/Intake and Output Vital Signs (last 24 hours): Temp Pulse Resp BP Pulse Ox 97.7 F 78 20 133/47 L 98 09/24/16 16:26 09/24/16 08:19 09/24/16 16:26 09/24/16 16:26 09/24/16 16:26 Intake and Output: 09/24/16 09/24/16 06:59 18:59 Intake Total 700 580 Output Total 1000 400 Balance -300 180 - Medications Medications: Current Medications Aspirin (Aspirin) 325 mg PO DAILY [facility] Last Admin: 09/24/16 10:18 Dose: 325 mg Folic Acid (Folic Acid) 1 mg PO DAILY [facility] Last Admin: 09/24/16 10:18 Dose: 1 mg Ceftriaxone Sodium 1 gm/ (Sodium Chloride) 100 mls @ 200 mls/hr IVPB Q12H [facility] Last Admin: 09/24/16 10:18 Dose: 200 mls/hr Insulin Glargine (Lantus) 10 unit SC [facility] Last Admin: 09/23/16 22:07 Dose: 10 units Insulin Human Regular (Novolin R) 0 unit SC ACHS [facility] PRN Reason: Protocol Last Admin: 09/24/16 16:30 Dose: 1 unit Isosorbide Mononitrate (Imdur) 30 mg PO DAILY [facility] Last Admin: 09/24/16 10:18 Dose: 30 mg Magnesium Hydroxide (Milk Of Magnesia) 30 ml PO Q72 PRN PRN Reason: Constipation Metoprolol Succinate (Toprol Xl) 12.5 mg PO DAILY [facility] Last Admin: 09/24/16 10:19 Dose: 12.5 mg Pantoprazole Sodium (Protonix Ec Tab) 40 mg PO DAILY [facility] Last Admin: 09/24/16 10:18 Dose: 40 mg Ranolazine (Ranexa) 500 mg PO BID [facility] Last Admin: 09/24/16 17:49 Dose: 500 mg Rosuvastatin Calcium (Crestor) 20 mg PO HS [facility] Last Admin: 09/23/16 22:07 Dose: 20 mg Thiamine HCl (Vitamin B1 Tab) 100 mg PO DAILY [facility] Last Admin: 09/24/16 10:18 Dose: 100 mg - Labs Labs: 09/24/16 07:12 09/24/16 07:12 PT 13.8 SECONDS (9.7-12.2) H 09/16/16 20:54 INR 1.2 09/16/16 20:54 APTT 34 SECONDS (21-34) 09/16/16 20:54 Assessment and Plan (1) Pneumonia Status: Acute
[2016-09-24] MEDS: (Lantus) Insulin Glargine, Recombinant SC SCH (21:13)
--- NOTE | 2016-09-25 07:03 | CP.PCM.PN ---
<Ron Gallagher - Last Filed: 09/25/16 13:16> Subjective - Date & Time of Evaluation Date of Evaluation: 09/25/16 Time of Evaluation: 07:00 - Subjective Subjective: Medicine Note- Dr. Ramírez's service Patient was seen and examined at bedside. Patient reports no acute complaints at this time. No events overnight, per nursing. Objective - Vital Signs/Intake and Output Vital Signs (last 24 hours): Temp Pulse Resp BP Pulse Ox 97.9 F 74 20 133/47 L 98 09/25/16 00:00 09/25/16 00:00 09/25/16 00:00 09/24/16 16:26 09/25/16 00:00 - Medications Medications: Current Medications Aspirin (Aspirin) 325 mg PO DAILY [facility] Last Admin: 09/24/16 10:18 Dose: 325 mg Folic Acid (Folic Acid) 1 mg PO DAILY [facility] Last Admin: 09/24/16 10:18 Dose: 1 mg Ceftriaxone Sodium 1 gm/ (Sodium Chloride) 100 mls @ 200 mls/hr IVPB Q12H [facility] Last Admin: 09/24/16 21:13 Dose: 200 mls/hr Insulin Glargine (Lantus) 10 unit SC [facility] Last Admin: 09/24/16 21:13 Dose: 10 units Insulin Human Regular (Novolin R) 0 unit SC [facility] PRN Reason: Protocol Last Admin: 09/24/16 21:20 Dose: Not Given Isosorbide Mononitrate (Imdur) 30 mg PO DAILY [facility] Last Admin: 09/24/16 10:18 Dose: 30 mg Magnesium Hydroxide (Milk Of Magnesia) 30 ml PO Q72 PRN PRN Reason: Constipation Metoprolol Succinate (Toprol Xl) 12.5 mg PO DAILY [facility] Last Admin: 09/24/16 10:19 Dose: 12.5 mg Pantoprazole Sodium (Protonix Ec Tab) 40 mg PO DAILY [facility] Last Admin: 09/24/16 10:18 Dose: 40 mg Ranolazine (Ranexa) 500 mg PO BID [facility] Last Admin: 09/24/16 17:49 Dose: 500 mg Rosuvastatin Calcium (Crestor) 20 mg PO HS [facility] Last Admin: 09/24/16 21:12 Dose: 20 mg Thiamine HCl (Vitamin B1 Tab) 100 mg PO DAILY [facility] Last Admin: 09/24/16 10:18 Dose: 100 mg - Labs Labs: 09/24/16 07:12 09/24/16 07:12 PT 13.8 SECONDS (9.7-12.2) H 09/16/16 20:54 INR 1.2 09/16/16 20:54 APTT 34 SECONDS (21-34) 09/16/16 20:54 - Constitutional Appears: Non-toxic, No Acute Distress - Head Exam Head Exam: ATRAUMATIC, NORMAL INSPECTION, NORMOCEPHALIC - ENT Exam ENT Exam: Mucous Membranes Moist - Respiratory Exam Respiratory Exam: Decreased Breath Sounds, Clear to Ausculation Bilateral, NORMAL BREATHING PATTERN. absent: Prolonged Expiratory Phase, Rales, Rhonchi, Wheezes - Cardiovascular Exam Cardiovascular Exam: REGULAR RHYTHM, +S1, +S2 - GI/Abdominal Exam GI & Abdominal Exam: Soft, Normal Bowel Sounds. absent: Tenderness, Diminished Bowel Sounds, Hypoactive Bowel Sounds - Extremities Exam Additional comments: RLE dressing c/d/i - Neurological Exam Neurological Exam: Alert, Awake, Oriented x3 - Psychiatric Exam Psychiatric exam: Normal Affect, Normal Mood - Skin Skin Exam: Dry, Intact, Normal Color, Warm Assessment and Plan - Assessment and Plan (Free Text) Assessment: Hemoptysis 40ml red blood reported at [facility] per ED note. No more episodes in hospital. Dr. Ross and Dario consulted, help appreciated. CXR showed RUL infiltrate. Procalcitonin level low. Rocephin 1gm IVPB Q12h started 09/17. CT angio showed RUL pneumonia (see full report). Quantiferon gold test negative. AFB stain negative. Pancytopenia Chronic. Standard neutropenic precautions. Heme/onc dr. Nguyen consulted. Consulted Hemeonc- Dr. Miguel Knutson IV Ferrlecit. Pt can be discharged from heme/onc standpoint as per Dr. Nguyen. Pt to be followed outpatient for bone marrow biopsy. Right foot infection Podiatry Dr. Ramirez consulted, help appreciated. Left arm swelling Venous doppler showed left arm cephalic vein thrombosis. Vascular Dr. Lugo consulted, help appreciated. Symptomatic treatment for now. DM Lantus 10U SC HS RISS, accucheck. Prophylactic measure Protonix PO. SCD and HepSQ contraindicated. Management per Dr. Ramírez. DC Planning- case management currently trying to find MARTHA in the patient's insurance network <Santiago Ramírez S - Last Filed: 09/29/16 09:21> Objective - Vital Signs/Intake and Output Vital Signs (last 24 hours): Temp Pulse Resp BP Pulse Ox 97.5 F L 70 20 155/85 H 98 09/29/16 08:10 09/29/16 08:10 09/29/16 08:10 09/29/16 08:10 09/29/16 08:10 Intake and Output: 09/29/16 09/29/16 06:59 18:59 Intake Total 840 Output Total 400 Balance 440 - Medications Medications: Current Medications Aspirin (Aspirin) 325 mg PO DAILY [facility] Last Admin: 09/28/16 09:43 Dose: 325 mg Folic Acid (Folic Acid) 1 mg PO DAILY [facility] Last Admin: 09/28/16 09:43 Dose: 1 mg Ceftriaxone Sodium 1 gm/ (Sodium Chloride) 100 mls @ 200 mls/hr IVPB Q12H [facility] Last Admin: 09/28/16 21:41 Dose: 200 mls/hr Insulin Glargine (Lantus) 10 unit SC [facility] Last Admin: 09/28/16 21:47 Dose: 10 units Insulin Human Regular (Novolin R) 0 unit SC ACHS [facility] PRN Reason: Protocol Last Admin: 09/29/16 07:59 Dose: Not Given Isosorbide Mononitrate (Imdur) 30 mg PO DAILY [facility] Last Admin: 09/28/16 09:42 Dose: 30 mg Lactic Acid (Lac-Hydrin 12% Lotion (225 G)) 0 gm EXT BID [facility] Last Admin: 09/28/16 18:28 Dose: 1 applic Magnesium Hydroxide (Milk Of Magnesia) 30 ml PO Q72 PRN PRN Reason: Constipation Metoprolol Succinate (Toprol Xl) 12.5 mg PO DAILY [facility] Last Admin: 09/28/16 09:45 Dose: 12.5 mg Pantoprazole Sodium (Protonix Ec Tab) 40 mg PO DAILY [facility] Last Admin: 09/28/16 09:42 Dose: 40 mg Ranolazine (Ranexa) 500 mg PO BID [facility] Last Admin: 09/28/16 18:38 Dose: 500 mg Rosuvastatin Calcium (Crestor) 20 mg PO HS [facility] Last Admin: 09/28/16 21:40 Dose: 20 mg Thiamine HCl (Vitamin B1 Tab) 100 mg PO DAILY [facility] Last Admin: 09/28/16 09:43 Dose: 100 mg - Labs Labs: 09/29/16 07:20 09/29/16 07:20 PT 13.8 SECONDS (9.7-12.2) H 09/16/16 20:54 INR 1.2 09/16/16 20:54 APTT 34 SECONDS (21-34) 09/16/16 20:54 Assessment and Plan (1) Gastrointestinal hemorrhage Status: Acute (2) Pneumonia Status: Acute (3) Anemia Status: Acute (4) Chest pain Status: Acute (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 Status: Acute (6) Diabetes mellitus, new onset Status: Acute (7) Infected ulcer of skin Status: Acute (8) PAD (peripheral artery disease) Status: Acute (9) Pancytopenia Status: Acute (10) Prophylactic measure Status: Acute (11) CAD (coronary artery disease) Status: Chronic (12) Diabetes mellitus Status: Chronic Attending/Attestation - Attestation I have personally seen and examined this patient.: Yes I have fully participated in the care of the patient.: Yes I have reviewed all pertinent clinical information, including history, physical exam and plan: Yes Notes (Text): admitted for pneumonia and pancutopenia treated with hel p of [facility]iva consultation
[2016-09-25] MEDS: (Novolin R) Insulin Human Regular 100 units/ml vial SC SCH ×4 (07:42→22:14)
[2016-09-25 07:43] LABS: BASO % 0.8 % (0.0-2.0); EOS # 0.1 K/uL (0.0-0.7); EOS % 5.9 % (0.0-4.0); HEMATOCRIT 24.4 % (35.0-51.0); LYMPH % 48.6 % (20.0-40.0); MEAN CELL VOLUME 78.1 fL (80.0-94.0); MEAN CORPUSCULAR HEMOGLOBIN 26.4 pg (27.0-31.0); MEAN CORPUSCULAR HGB CONC 33.8 g/dL (33.0-37.0); MEAN PLATELET VOLUME 9.4 fL (7.2-11.7); MONO # 0.7 K/uL (0.0-0.8); MONO % 33.2 % (0.0-10.0); NRBC % 0.3 % (0.0-2.0); PLATELET COUNT 102 K/uL (130-400); RED CELL DISTRIBUTION WIDTH 20.5 % (11.5-14.5)
[2016-09-25 08:19] LABS: CHLORIDE 103 mmol/L (98-107); SODIUM 139 mmol/L (132-148)
[2016-09-25 08:22] LABS: ALB/GLOB RATIO 0.9 (1.0-2.1); ALKALINE PHOSPHATASE 85 U/L (38-126); ALT/SGPT 13 U/L (21-72); AST/SGOT 16 U/L (17-59); BILIRUBIN,TOTAL 0.6 mg/dL (0.2-1.3); BLOOD UREA NITROGEN 17 mg/dL (9-20); CARBON DIOXIDE 26 mmol/L (22-30); GFR AFRICAN-AMERICAN > 60; GLUCOSE,RANDOM 128 mg/dL (75-110)
[2016-09-25 08:23] LABS: CALCIUM 8.5 mg/dl (8.6-10.4)
[2016-09-25 09:12] LABS: EOSINOPHIL 12 % (0-4); TOTAL CELLS COUNTED 50
[2016-09-25 09:13] LABS: NEUTROPHIL 10 % (50-75)
--- NOTE | 2016-09-25 09:38 | CP.PCM.PN ---
Subjective - Date & Time of Evaluation Date of Evaluation: 09/25/16 Time of Evaluation: 09:20 - Subjective Subjective: pt seen for ulcer right ankle chronic in nature of long duration. Objective - Vital Signs/Intake and Output Vital Signs (last 24 hours): Temp Pulse Resp BP Pulse Ox 98.7 F 67 20 124/62 98 09/25/16 08:15 09/25/16 08:15 09/25/16 08:15 09/25/16 08:15 09/25/16 08:15 Intake and Output: 09/25/16 09/25/16 06:59 18:59 Intake Total 580 Balance 580 - Medications Medications: Current Medications Aspirin (Aspirin) 325 mg PO DAILY [facility] Last Admin: 09/24/16 10:18 Dose: 325 mg Folic Acid (Folic Acid) 1 mg PO DAILY [facility] Last Admin: 09/24/16 10:18 Dose: 1 mg Ceftriaxone Sodium 1 gm/ (Sodium Chloride) 100 mls @ 200 mls/hr IVPB Q12H [facility] Last Admin: 09/24/16 21:13 Dose: 200 mls/hr Insulin Glargine (Lantus) 10 unit SC [facility] Last Admin: 09/24/16 21:13 Dose: 10 units Insulin Human Regular (Novolin R) 0 unit SC ACHS [facility] PRN Reason: Protocol Last Admin: 09/25/16 07:42 Dose: Not Given Isosorbide Mononitrate (Imdur) 30 mg PO DAILY [facility] Last Admin: 09/24/16 10:18 Dose: 30 mg Magnesium Hydroxide (Milk Of Magnesia) 30 ml PO Q72 PRN PRN Reason: Constipation Metoprolol Succinate (Toprol Xl) 12.5 mg PO DAILY [facility] Last Admin: 09/24/16 10:19 Dose: 12.5 mg Pantoprazole Sodium (Protonix Ec Tab) 40 mg PO DAILY [facility] Last Admin: 09/24/16 10:18 Dose: 40 mg Ranolazine (Ranexa) 500 mg PO BID [facility] Last Admin: 09/24/16 17:49 Dose: 500 mg Rosuvastatin Calcium (Crestor) 20 mg PO HS [facility] Last Admin: 09/24/16 21:12 Dose: 20 mg Thiamine HCl (Vitamin B1 Tab) 100 mg PO DAILY [facility] Last Admin: 09/24/16 10:18 Dose: 100 mg - Labs Labs: 09/25/16 07:09 09/25/16 07:09 PT 13.8 SECONDS (9.7-12.2) H 09/16/16 20:54 INR 1.2 09/16/16 20:54 APTT 34 SECONDS (21-34) 09/16/16 20:54 - Extremities Exam Additional comments: O/Venous ulcer with skin breakdown medial right ankle . Wound is granular in nature . Vascular status intact . No signs of infection . Assessment and Plan - Assessment and Plan (Free Text) Assessment: A/Venous Ulcer right ankle Plan: P/Apply Xeroform Gauze and dry dressing right ankle .
--- NOTE | 2016-09-25 09:59 | CP.PCM.PN ---
Subjective - Date & Time of Evaluation Date of Evaluation: 09/25/16 Time of Evaluation: 09:58 - Subjective Subjective: Patient seen and evaluated at bedside, NAD. Patient is resting comfortably, denies any pain to the RLE at this time. Bandage is clean dry and intact. Denies n/v/f/c/sob. Objective - Vital Signs/Intake and Output Vital Signs (last 24 hours): Temp Pulse Resp BP Pulse Ox 98.7 F 67 20 124/62 98 09/25/16 08:15 09/25/16 08:15 09/25/16 08:15 09/25/16 08:15 09/25/16 08:15 Intake and Output: 09/25/16 09/25/16 06:59 18:59 Intake Total 580 Balance 580 - Medications Medications: Current Medications Aspirin (Aspirin) 325 mg PO DAILY [facility] Last Admin: 09/24/16 10:18 Dose: 325 mg Folic Acid (Folic Acid) 1 mg PO DAILY [facility] Last Admin: 09/24/16 10:18 Dose: 1 mg Ceftriaxone Sodium 1 gm/ (Sodium Chloride) 100 mls @ 200 mls/hr IVPB Q12H [facility] Last Admin: 09/24/16 21:13 Dose: 200 mls/hr Insulin Glargine (Lantus) 10 unit SC HS [facility] Last Admin: 09/24/16 21:13 Dose: 10 units Insulin Human Regular (Novolin R) 0 unit SC ACHS [facility] PRN Reason: Protocol Last Admin: 09/25/16 07:42 Dose: Not Given Isosorbide Mononitrate (Imdur) 30 mg PO DAILY [facility] Last Admin: 09/24/16 10:18 Dose: 30 mg Magnesium Hydroxide (Milk Of Magnesia) 30 ml PO Q72 PRN PRN Reason: Constipation Metoprolol Succinate (Toprol Xl) 12.5 mg PO DAILY [facility] Last Admin: 09/24/16 10:19 Dose: 12.5 mg Pantoprazole Sodium (Protonix Ec Tab) 40 mg PO DAILY [facility] Last Admin: 09/24/16 10:18 Dose: 40 mg Ranolazine (Ranexa) 500 mg PO BID [facility] Last Admin: 09/24/16 17:49 Dose: 500 mg Rosuvastatin Calcium (Crestor) 20 mg PO HS [facility] Last Admin: 09/24/16 21:12 Dose: 20 mg Thiamine HCl (Vitamin B1 Tab) 100 mg PO DAILY [facility] Last Admin: 09/24/16 10:18 Dose: 100 mg - Labs Labs: 09/25/16 07:09 09/25/16 07:09 PT 13.8 SECONDS (9.7-12.2) H 09/16/16 20:54 INR 1.2 09/16/16 20:54 APTT 34 SECONDS (21-34) 09/16/16 20:54 - Constitutional Appears: Well, Non-toxic, No Acute Distress - Neurological Exam Neurological Exam: Oriented x3 - Psychiatric Exam Psychiatric exam: Normal Affect, Normal Mood - Additional Findings Additional findings: DERMATOLOGIC: Right lower extremity anterior leg ulceration, does not probe deep, granular base, mild serous drainage, no purulene, no undermining, no erythema or tracking present. The surrounding skin is intact. There is xerosis noted bilaterally. VASCULAR: DP/PT pulses 2/4, TOOLING ENGINEERING TECH<3 seconds, skin temperature is normal NEUROLOGIC: Gross sensation intact, motor function intact ORTHOPEDIC: Mild pain on palpation to the wound site Assessment and Plan - Assessment and Plan (Free Text) Assessment: 71 year old male with chronic right anterior leg ulceration Plan: Patient seen and evaluated with attending , Dr. Ramirez Patients right leg changed with xeroform, DSD Wound improving slowly, stable Podiatry will continue to follow while in house
[2016-09-25] MEDS: Pantoprazole 40 mg EC Tab PO SCH (10:45)
[2016-09-25] MEDS: Ranolazine 500 mg Extended Release Tablets PO SCH ×2 (10:46→17:36)
[2016-09-25] MEDS: Metoprolol Succinate 12.5 mg XL PO SCH (10:46)
--- NOTE | 2016-09-25 13:24 | CP.PCM.PN ---
Subjective - Date & Time of Evaluation Date of Evaluation: 09/25/16 Time of Evaluation: 08:00 - Subjective Subjective: discussed on rounds iv rx reordered Objective - Vital Signs/Intake and Output Vital Signs (last 24 hours): Temp Pulse Resp BP Pulse Ox 98.7 F 67 20 124/62 98 09/25/16 08:15 09/25/16 08:15 09/25/16 08:15 09/25/16 08:15 09/25/16 08:15 Intake and Output: 09/25/16 09/25/16 06:59 18:59 Intake Total 580 Balance 580 - Medications Medications: Current Medications Aspirin (Aspirin) 325 mg PO DAILY [facility] Last Admin: 09/25/16 10:45 Dose: 325 mg Folic Acid (Folic Acid) 1 mg PO DAILY [facility] Last Admin: 09/25/16 10:45 Dose: 1 mg Ceftriaxone Sodium 1 gm/ (Sodium Chloride) 100 mls @ 200 mls/hr IVPB Q12H [facility] Last Admin: 09/25/16 10:44 Dose: 200 mls/hr Insulin Glargine (Lantus) 10 unit SC [facility] Last Admin: 09/24/16 21:13 Dose: 10 units Insulin Human Regular (Novolin R) 0 unit SC [facility] PRN Reason: Protocol Last Admin: 09/25/16 12:21 Dose: Not Given Isosorbide Mononitrate (Imdur) 30 mg PO DAILY [facility] Last Admin: 09/25/16 10:45 Dose: 30 mg Magnesium Hydroxide (Milk Of Magnesia) 30 ml PO Q72 PRN PRN Reason: Constipation Metoprolol Succinate (Toprol Xl) 12.5 mg PO DAILY [facility] Last Admin: 09/25/16 10:46 Dose: 12.5 mg Pantoprazole Sodium (Protonix Ec Tab) 40 mg PO DAILY [facility] Last Admin: 09/25/16 10:45 Dose: 40 mg Ranolazine (Ranexa) 500 mg PO BID [facility] Last Admin: 09/25/16 10:46 Dose: 500 mg Rosuvastatin Calcium (Crestor) 20 mg PO HS [facility] Last Admin: 09/24/16 21:12 Dose: 20 mg Thiamine HCl (Vitamin B1 Tab) 100 mg PO DAILY [facility] Last Admin: 09/25/16 10:45 Dose: 100 mg - Labs Labs: 09/25/16 07:09 09/25/16 07:09 PT 13.8 SECONDS (9.7-12.2) H 09/16/16 20:54 INR 1.2 09/16/16 20:54 APTT 34 SECONDS (21-34) 09/16/16 20:54 - Constitutional Appears: Non-toxic, Chronically Ill - Head Exam Head Exam: NORMOCEPHALIC - Eye Exam Eye Exam: PERRL. absent: Scleral icterus - ENT Exam ENT Exam: Mucous Membranes Dry - Neck Exam Neck Exam: Normal Inspection - Respiratory Exam Respiratory Exam: Clear to Ausculation Bilateral - Cardiovascular Exam Cardiovascular Exam: REGULAR RHYTHM, +S1, +S2 - GI/Abdominal Exam GI & Abdominal Exam: Distended, Soft. absent: Tenderness - Rectal Exam Rectal Exam: Deferred Assessment and Plan (1) Diabetes mellitus with ulcer of ankle Status: Acute (2) Infected ulcer of skin Status: Acute (3) PAD (peripheral artery disease) Status: Acute (4) CAD (coronary artery disease) Status: Chronic
--- NOTE | 2016-09-25 13:38 | CP.PCM.PN ---
Subjective - Date & Time of Evaluation Date of Evaluation: 09/25/16 Time of Evaluation: 07:00 - Subjective Subjective: hem onc dr. esgura and dr. valdez spoke to dr. josé miguel sawant same ma switch to as pt was followed by dr. segura before savana same discharge planing discuse diwht vp digital marketing social media and crm Objective - Vital Signs/Intake and Output Vital Signs (last 24 hours): Temp Pulse Resp BP Pulse Ox 98.7 F 67 20 124/62 98 09/25/16 08:15 09/25/16 08:15 09/25/16 08:15 09/25/16 08:15 09/25/16 08:15 Intake and Output: 09/25/16 09/25/16 06:59 18:59 Intake Total 580 Balance 580 - Medications Medications: Current Medications Aspirin (Aspirin) 325 mg PO DAILY [facility] Last Admin: 09/25/16 10:45 Dose: 325 mg Folic Acid (Folic Acid) 1 mg PO DAILY [facility] Last Admin: 09/25/16 10:45 Dose: 1 mg Ceftriaxone Sodium 1 gm/ (Sodium Chloride) 100 mls @ 200 mls/hr IVPB Q12H [facility] Last Admin: 09/25/16 10:44 Dose: 200 mls/hr Insulin Glargine (Lantus) 10 unit SC HS [facility] Last Admin: 09/24/16 21:13 Dose: 10 units Insulin Human Regular (Novolin R) 0 unit SC ACHS [facility] PRN Reason: Protocol Last Admin: 09/25/16 12:21 Dose: Not Given Isosorbide Mononitrate (Imdur) 30 mg PO DAILY [facility] Last Admin: 09/25/16 10:45 Dose: 30 mg Magnesium Hydroxide (Milk Of Magnesia) 30 ml PO Q72 PRN PRN Reason: Constipation Metoprolol Succinate (Toprol Xl) 12.5 mg PO DAILY [facility] Last Admin: 09/25/16 10:46 Dose: 12.5 mg Pantoprazole Sodium (Protonix Ec Tab) 40 mg PO DAILY [facility] Last Admin: 09/25/16 10:45 Dose: 40 mg Ranolazine (Ranexa) 500 mg PO BID [facility] Last Admin: 09/25/16 10:46 Dose: 500 mg Rosuvastatin Calcium (Crestor) 20 mg PO HS [facility] Last Admin: 09/24/16 21:12 Dose: 20 mg Thiamine HCl (Vitamin B1 Tab) 100 mg PO DAILY [facility] Last Admin: 09/25/16 10:45 Dose: 100 mg - Labs Labs: 09/25/16 07:09 09/25/16 07:09 PT 13.8 SECONDS (9.7-12.2) H 09/16/16 20:54 INR 1.2 09/16/16 20:54 APTT 34 SECONDS (21-34) 09/16/16 20:54 - Constitutional Appears: Well - Head Exam Head Exam: ATRAUMATIC, NORMAL INSPECTION, NORMOCEPHALIC - Eye Exam Eye Exam: EOMI, Normal appearance, PERRL Pupil Exam: NORMAL ACCOMODATION, PERRL - ENT Exam ENT Exam: Mucous Membranes Moist, Normal Exam - Neck Exam Neck Exam: Full ROM, Normal Inspection. absent: Lymphadenopathy - Respiratory Exam Respiratory Exam: Decreased Breath Sounds - Cardiovascular Exam Cardiovascular Exam: REGULAR RHYTHM, +S1, +S2 - GI/Abdominal Exam GI & Abdominal Exam: Soft, Diminished Bowel Sounds - Rectal Exam Rectal Exam: Deferred Assessment and Plan - Assessment and Plan (Free Text) Plan: hem onc dr. segura and dr. valdez spoke to dr. josé miguel sawant same ma switch to as pt was followed by dr. segura before savana same discharge planing candelario pinoanna vp digital marketing social media and crm
[2016-09-25] MEDS: (Lantus) Insulin Glargine, Recombinant SC SCH (22:13)
[2016-09-26 06:54] LABS: BASO % 0.8 % (0.0-2.0); EOS # 0.1 K/uL (0.0-0.7); EOS % 5.4 % (0.0-4.0); HEMATOCRIT 23.7 % (35.0-51.0); LYMPH # 0.9 K/uL (1.0-4.3); LYMPH % 47.2 % (20.0-40.0); MEAN CELL VOLUME 78.9 fL (80.0-94.0); MEAN CORPUSCULAR HEMOGLOBIN 26.1 pg (27.0-31.0); MEAN CORPUSCULAR HGB CONC 33.1 g/dL (33.0-37.0); MEAN PLATELET VOLUME 9.1 fL (7.2-11.7); MONO # 0.6 K/uL (0.0-0.8); MONO % 31.3 % (0.0-10.0); NRBC % 0.3 % (0.0-2.0); PLATELET COUNT 95 K/uL (130-400); RED CELL DISTRIBUTION WIDTH 20.9 % (11.5-14.5)
[2016-09-26 07:06] LABS: WHITE BLOOD COUNT 1.9 K/uL (4.8-10.8)
[2016-09-26 07:34] LABS: CHLORIDE 102 mmol/L (98-107)
[2016-09-26 07:35] LABS: POTASSIUM 4.1 mmol/L (3.6-5.2); SODIUM 137 mmol/L (132-148)
[2016-09-26 07:37] LABS: ALB/GLOB RATIO 0.9 (1.0-2.1); ALKALINE PHOSPHATASE 87 U/L (38-126); ALT/SGPT 12 U/L (21-72); AST/SGOT 16 U/L (17-59); BILIRUBIN,TOTAL 0.7 mg/dL (0.2-1.3); BLOOD UREA NITROGEN 20 mg/dL (9-20); CALCIUM 8.5 mg/dl (8.6-10.4); CARBON DIOXIDE 27 mmol/L (22-30); GFR AFRICAN-AMERICAN > 60; GLUCOSE,RANDOM 111 mg/dL (75-110)
[2016-09-26] MEDS: (Novolin R) Insulin Human Regular 100 units/ml vial SC SCH ×4 (07:43→21:58)
[2016-09-26 08:35] LABS: EOSINOPHIL 4 % (0-4); NEUTROPHIL 26 % (50-75); REACTIVE LYMPHOCYTES 2 % (0-0); TOTAL CELLS COUNTED 50
--- NOTE | 2016-09-26 09:11 | CP.PCM.PN ---
Subjective - Date & Time of Evaluation Date of Evaluation: 09/26/16 Time of Evaluation: 09:00 - Subjective Subjective: clinically same Objective - Vital Signs/Intake and Output Vital Signs (last 24 hours): Temp Pulse Resp BP Pulse Ox 98.9 F 79 20 162/75 H 97 09/26/16 07:51 09/26/16 07:51 09/26/16 07:51 09/26/16 07:51 09/26/16 07:51 Intake and Output: 09/26/16 09/26/16 06:59 18:59 Intake Total 120 Balance 120 - Medications Medications: Current Medications Aspirin (Aspirin) 325 mg PO DAILY [facility] Last Admin: 09/25/16 10:45 Dose: 325 mg Folic Acid (Folic Acid) 1 mg PO DAILY [facility] Last Admin: 09/25/16 10:45 Dose: 1 mg Ceftriaxone Sodium 1 gm/ (Sodium Chloride) 100 mls @ 200 mls/hr IVPB Q12H [facility] Last Admin: 09/25/16 22:15 Dose: 200 mls/hr Insulin Glargine (Lantus) 10 unit SC [facility] Last Admin: 09/25/16 22:13 Dose: 10 units Insulin Human Regular (Novolin R) 0 unit SC [facility] PRN Reason: Protocol Last Admin: 09/26/16 07:43 Dose: Not Given Isosorbide Mononitrate (Imdur) 30 mg PO DAILY [facility] Last Admin: 09/25/16 10:45 Dose: 30 mg Magnesium Hydroxide (Milk Of Magnesia) 30 ml PO Q72 PRN PRN Reason: Constipation Metoprolol Succinate (Toprol Xl) 12.5 mg PO DAILY [facility] Last Admin: 09/25/16 10:46 Dose: 12.5 mg Pantoprazole Sodium (Protonix Ec Tab) 40 mg PO DAILY [facility] Last Admin: 09/25/16 10:45 Dose: 40 mg Ranolazine (Ranexa) 500 mg PO BID [facility] Last Admin: 09/25/16 17:36 Dose: 500 mg Rosuvastatin Calcium (Crestor) 20 mg PO HS [facility] Last Admin: 09/25/16 22:12 Dose: 20 mg Thiamine HCl (Vitamin B1 Tab) 100 mg PO DAILY [facility] Last Admin: 09/25/16 10:45 Dose: 100 mg - Labs Labs: 09/26/16 06:15 09/26/16 06:15 PT 13.8 SECONDS (9.7-12.2) H 09/16/16 20:54 INR 1.2 09/16/16 20:54 APTT 34 SECONDS (21-34) 09/16/16 20:54 - Constitutional Appears: Well - Head Exam Head Exam: ATRAUMATIC, NORMAL INSPECTION, NORMOCEPHALIC - Eye Exam Eye Exam: EOMI, Normal appearance, PERRL Pupil Exam: NORMAL ACCOMODATION, PERRL - ENT Exam ENT Exam: Mucous Membranes Moist, Normal Exam - Neck Exam Neck Exam: Full ROM, Normal Inspection. absent: Lymphadenopathy - Respiratory Exam Respiratory Exam: Decreased Breath Sounds - Cardiovascular Exam Cardiovascular Exam: REGULAR RHYTHM, +S1, +S2 - GI/Abdominal Exam GI & Abdominal Exam: Soft, Diminished Bowel Sounds - Rectal Exam Rectal Exam: Deferred Assessment and Plan - Assessment and Plan (Free Text) Plan: Follow-up GI Follow-up building mechanic Follow-up ID Continue antibiotics as ordered Protonix Thiamine Continue wound care Bone marrow biopsy due to pancytopenia
--- NOTE | 2016-09-26 09:38 | CP.PCM.PN ---
Subjective - Date & Time of Evaluation Date of Evaluation: 09/26/16 Time of Evaluation: 09:00 - Subjective Subjective: 71 y/o male was seen and evaluated at bedside this morning for follow-up on RLE ulceration. Patient was resting comfortably in bed, in NAD. He denies any pain in his RLE. Denies any F/C/N/V/SOB/CP. No pedal complaints reported at this time. RLE dressing appears to be C/D/I. Objective - Vital Signs/Intake and Output Vital Signs (last 24 hours): Temp Pulse Resp BP Pulse Ox 98.9 F 79 20 162/75 H 97 09/26/16 07:51 09/26/16 07:51 09/26/16 07:51 09/26/16 07:51 09/26/16 07:51 Intake and Output: 09/26/16 09/26/16 06:59 18:59 Intake Total 120 Balance 120 - Medications Medications: Current Medications Aspirin (Aspirin) 325 mg PO DAILY [facility] Last Admin: 09/25/16 10:45 Dose: 325 mg Folic Acid (Folic Acid) 1 mg PO DAILY [facility] Last Admin: 09/25/16 10:45 Dose: 1 mg Ceftriaxone Sodium 1 gm/ (Sodium Chloride) 100 mls @ 200 mls/hr IVPB Q12H [facility] Last Admin: 09/25/16 22:15 Dose: 200 mls/hr Insulin Glargine (Lantus) 10 unit SC HS [facility] Last Admin: 09/25/16 22:13 Dose: 10 units Insulin Human Regular (Novolin R) 0 unit SC ACHS [facility] PRN Reason: Protocol Last Admin: 09/26/16 07:43 Dose: Not Given Isosorbide Mononitrate (Imdur) 30 mg PO DAILY [facility] Last Admin: 09/25/16 10:45 Dose: 30 mg Magnesium Hydroxide (Milk Of Magnesia) 30 ml PO Q72 PRN PRN Reason: Constipation Metoprolol Succinate (Toprol Xl) 12.5 mg PO DAILY [facility] Last Admin: 09/25/16 10:46 Dose: 12.5 mg Pantoprazole Sodium (Protonix Ec Tab) 40 mg PO DAILY [facility] Last Admin: 09/25/16 10:45 Dose: 40 mg Ranolazine (Ranexa) 500 mg PO BID [facility] Last Admin: 09/25/16 17:36 Dose: 500 mg Rosuvastatin Calcium (Crestor) 20 mg PO HS [facility] Last Admin: 09/25/16 22:12 Dose: 20 mg Thiamine HCl (Vitamin B1 Tab) 100 mg PO DAILY [facility] Last Admin: 09/25/16 10:45 Dose: 100 mg - Labs Labs: 09/26/16 06:15 09/26/16 06:15 PT 13.8 SECONDS (9.7-12.2) H 09/16/16 20:54 INR 1.2 09/16/16 20:54 APTT 34 SECONDS (21-34) 09/16/16 20:54 - Constitutional Appears: Non-toxic, No Acute Distress - Neurological Exam Neurological Exam: Alert, Awake, Oriented x3 - Psychiatric Exam Psychiatric exam: Normal Affect, Normal Mood - Skin Skin Exam: absent: Erythema - Additional Findings Additional findings: RLE exam: DERMATOLOGIC: Right lower extremity anteromedial leg ulceration, does not probe deep, granular base, mild serous drainage, no purulence, no undermining, no erythema or tracking present. The surrounding skin is intact. There is xerosis noted bilaterally. VASCULAR: DP/PT pulses 2/4, STORE TEAM LEADER<3 seconds, skin temperature is normal NEUROLOGIC: Gross sensation intact, motor function intact ORTHOPEDIC: Mild pain on palpation to the wound site Assessment and Plan - Assessment and Plan (Free Text) Assessment: 71 y/o M with chronic Right ankle/lower leg stasis ulceration Plan: Patient seen and evaluated at bedside Labs and vitals reviewed RLE dressing changed with Xeroform DSD As per social work, possible transfer to [facility] if patient comes off of isolation Discussed patient with attending, Dr. Ramirez Podiatry to follow while patient remains in house
--- NOTE | 2016-09-26 10:06 | CP.PCM.PN ---
<Miguel Ángel Juarez - Last Filed: 09/26/16 12:44> Subjective - Date & Time of Evaluation Date of Evaluation: 09/26/16 Time of Evaluation: 09:00 - Subjective Subjective: PGY2 on medicine Dr. Ramírez service: Pt seen and examined at bedside. No acute events overnight. Pt complains noises overnight but no other complaints. Objective - Vital Signs/Intake and Output Vital Signs (last 24 hours): Temp Pulse Resp BP Pulse Ox 98.9 F 79 20 162/75 H 97 09/26/16 07:51 09/26/16 07:51 09/26/16 07:51 09/26/16 07:51 09/26/16 07:51 Intake and Output: 09/26/16 09/26/16 06:59 18:59 Intake Total 120 Balance 120 - Medications Medications: Current Medications Aspirin (Aspirin) 325 mg PO DAILY [facility] Last Admin: 09/25/16 10:45 Dose: 325 mg Folic Acid (Folic Acid) 1 mg PO DAILY [facility] Last Admin: 09/25/16 10:45 Dose: 1 mg Ceftriaxone Sodium 1 gm/ (Sodium Chloride) 100 mls @ 200 mls/hr IVPB Q12H [facility] Last Admin: 09/25/16 22:15 Dose: 200 mls/hr Insulin Glargine (Lantus) 10 unit SC [facility] Last Admin: 09/25/16 22:13 Dose: 10 units Insulin Human Regular (Novolin R) 0 unit SC ACHS [facility] PRN Reason: Protocol Last Admin: 09/26/16 07:43 Dose: Not Given Isosorbide Mononitrate (Imdur) 30 mg PO DAILY [facility] Last Admin: 09/25/16 10:45 Dose: 30 mg Magnesium Hydroxide (Milk Of Magnesia) 30 ml PO Q72 PRN PRN Reason: Constipation Metoprolol Succinate (Toprol Xl) 12.5 mg PO DAILY [facility] Last Admin: 09/25/16 10:46 Dose: 12.5 mg Pantoprazole Sodium (Protonix Ec Tab) 40 mg PO DAILY [facility] Last Admin: 09/25/16 10:45 Dose: 40 mg Ranolazine (Ranexa) 500 mg PO BID [facility] Last Admin: 09/25/16 17:36 Dose: 500 mg Rosuvastatin Calcium (Crestor) 20 mg PO HS [facility] Last Admin: 09/25/16 22:12 Dose: 20 mg Thiamine HCl (Vitamin B1 Tab) 100 mg PO DAILY [facility] Last Admin: 09/25/16 10:45 Dose: 100 mg - Labs Labs: 09/26/16 06:15 09/26/16 06:15 PT 13.8 SECONDS (9.7-12.2) H 09/16/16 20:54 INR 1.2 09/16/16 20:54 APTT 34 SECONDS (21-34) 09/16/16 20:54 - Constitutional Appears: Non-toxic, No Acute Distress, Chronically Ill - Head Exam Head Exam: NORMOCEPHALIC - Respiratory Exam Respiratory Exam: Clear to Ausculation Bilateral, NORMAL BREATHING PATTERN. absent: Rales, Rhonchi, Wheezes - Cardiovascular Exam Cardiovascular Exam: REGULAR RHYTHM, +S1, +S2. absent: Gallop, Rubs - GI/Abdominal Exam GI & Abdominal Exam: Soft, Normal Bowel Sounds - Extremities Exam Additional comments: RLE dressing C/D/I - Neurological Exam Neurological Exam: Alert, Awake, Oriented x3 - Psychiatric Exam Psychiatric exam: Normal Mood - Skin Skin Exam: Intact Assessment and Plan - Assessment and Plan (Free Text) Assessment: Hemoptysis 40ml red blood reported at half-way per ED note. No more episodes in hospital. Dr. Ross and Dario consulted, help appreciated. CXR showed RUL infiltrate. Procalcitonin level low. Rocephin 1gm IVPB Q12h started 09/17, patient needs to have either 2g daily or 1g q12H until 10/08, per Dr. Bishop. CT angio showed RUL pneumonia (see full report). Quantiferon gold test negative. AFB stain negative. Pancytopenia Chronic. Standard neutropenic precautions. Heme/onc dr. Nguyen consulted. Consulted Hemeonc- Dr. Miguel Griffin. Bone marrow biopsy today with Dr. Knutson. Right foot infection Podiatry Dr. Ramirez consulted, help appreciated. Left arm swelling Venous doppler showed left arm cephalic vein thrombosis. Vascular Dr. Lugo consulted, help appreciated. Symptomatic treatment for now. DM Lantus 10U SC HS [facility], accucheck. Prophylactic measure Protonix PO. SCD and HepSQ contraindicated. Management per Dr. Ramírez. DC Planning- case management currently trying to find MARTHA in the patient's insurance network <Santiago Ramírez - Last Filed: 09/29/16 09:20> Objective - Vital Signs/Intake and Output Vital Signs (last 24 hours): Temp Pulse Resp BP Pulse Ox 97.5 F L 70 20 155/85 H 98 09/29/16 08:10 09/29/16 08:10 09/29/16 08:10 09/29/16 08:10 09/29/16 08:10 Intake and Output: 09/29/16 09/29/16 06:59 18:59 Intake Total 840 Output Total 400 Balance 440 - Medications Medications: Current Medications Aspirin (Aspirin) 325 mg PO DAILY [facility] Last Admin: 09/28/16 09:43 Dose: 325 mg Folic Acid (Folic Acid) 1 mg PO DAILY [facility] Last Admin: 09/28/16 09:43 Dose: 1 mg Ceftriaxone Sodium 1 gm/ (Sodium Chloride) 100 mls @ 200 mls/hr IVPB Q12H [facility] Last Admin: 09/28/16 21:41 Dose: 200 mls/hr Insulin Glargine (Lantus) 10 unit SC [facility] Last Admin: 09/28/16 21:47 Dose: 10 units Insulin Human Regular (Novolin R) 0 unit SC ACHS [facility] PRN Reason: Protocol Last Admin: 09/29/16 07:59 Dose: Not Given Isosorbide Mononitrate (Imdur) 30 mg PO DAILY [facility] Last Admin: 09/28/16 09:42 Dose: 30 mg Lactic Acid (Lac-Hydrin 12% Lotion (225 G)) 0 gm EXT BID [facility] Last Admin: 09/28/16 18:28 Dose: 1 applic Magnesium Hydroxide (Milk Of Magnesia) 30 ml PO Q72 PRN PRN Reason: Constipation Metoprolol Succinate (Toprol Xl) 12.5 mg PO DAILY [facility] Last Admin: 09/28/16 09:45 Dose: 12.5 mg Pantoprazole Sodium (Protonix Ec Tab) 40 mg PO DAILY [facility] Last Admin: 09/28/16 09:42 Dose: 40 mg Ranolazine (Ranexa) 500 mg PO BID [facility] Last Admin: 09/28/16 18:38 Dose: 500 mg Rosuvastatin Calcium (Crestor) 20 mg PO HS [facility] Last Admin: 09/28/16 21:40 Dose: 20 mg Thiamine HCl (Vitamin B1 Tab) 100 mg PO DAILY [facility] Last Admin: 09/28/16 09:43 Dose: 100 mg - Labs Labs: 09/29/16 07:20 09/29/16 07:20 PT 13.8 SECONDS (9.7-12.2) H 09/16/16 20:54 INR 1.2 09/16/16 20:54 APTT 34 SECONDS (21-34) 09/16/16 20:54 Assessment and Plan (1) Gastrointestinal hemorrhage Status: Acute (2) Pneumonia Status: Acute (3) Anemia Status: Acute (4) Chest pain Status: Acute (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 Status: Acute (6) Diabetes mellitus, new onset Status: Acute (7) Infected ulcer of skin Status: Acute (8) PAD (peripheral artery disease) Status: Acute (9) Pancytopenia Status: Acute (10) Prophylactic measure Status: Acute (11) CAD (coronary artery disease) Status: Chronic (12) Diabetes mellitus Status: Chronic Attending/Attestation - Attestation I have personally seen and examined this patient.: Yes I have fully participated in the care of the patient.: Yes I have reviewed all pertinent clinical information, including history, physical exam and plan: Yes Notes (Text): admittted iwth pancytopenia andpneumonia no chest pain has efrain can
[2016-09-26] MEDS: Ranolazine 500 mg Extended Release Tablets PO SCH ×2 (10:37→17:40)
[2016-09-26] MEDS: Metoprolol Succinate 12.5 mg XL PO SCH (10:38)
[2016-09-26] MEDS: Pantoprazole 40 mg EC Tab PO SCH ×2 (10:49→14:38)
[2016-09-26] MEDS ORDERED: Lidocaine 2% Inj (20ml) IV ONE (11:21)
--- NOTE | 2016-09-26 12:25 | CP.PCM.PN ---
Subjective - Date & Time of Evaluation Date of Evaluation: 09/26/16 Time of Evaluation: 12:00 - Subjective Subjective: Bone marrow aspiration and biopsy procedure Indication: Pancytopenia - Time-out was called to confirm: patients name and date of , procedure, side and site of biopsy, safety procedures followed. - Performed by: self. - Informed consent: signed by patient. - Aspiration and biopsy site: [right] superior posterior iliac crest. - Patient position: [left lateral decubitus] - Preparation and technique: sterile preparation of site with Betadyne, Chloraprep, draped to expose aspirate/biopsy area, local anesthesia with 2% lidocaine (approximately 10ml), frequent pressure application on incision to maintain hemostasis. - Tissue obtained: bone marrow aspirate and biopsy were successfully obtained in sterile manner. - Toleration of procedure and any complications: slight localized bleeding (<1ml ). Patient tolerated procedure well with minimal pain. Objective - Vital Signs/Intake and Output Vital Signs (last 24 hours): Temp Pulse Resp BP Pulse Ox 98.9 F 79 20 162/75 H 97 09/26/16 07:51 09/26/16 07:51 09/26/16 07:51 09/26/16 07:51 09/26/16 07:51 Intake and Output: 09/26/16 09/26/16 06:59 18:59 Intake Total 120 Balance 120 - Medications Medications: Current Medications Aspirin (Aspirin) 325 mg PO DAILY [facility] Last Admin: 09/26/16 10:35 Dose: 325 mg Folic Acid (Folic Acid) 1 mg PO DAILY [facility] Last Admin: 09/26/16 10:35 Dose: 1 mg Insulin Glargine (Lantus) 10 unit SC HS [facility] Last Admin: 09/25/16 22:13 Dose: 10 units Insulin Human Regular (Novolin R) 0 unit SC ACHS [facility] PRN Reason: Protocol Last Admin: 09/26/16 11:38 Dose: 1 unit Isosorbide Mononitrate (Imdur) 30 mg PO DAILY [facility] Last Admin: 09/26/16 10:35 Dose: 30 mg Magnesium Hydroxide (Milk Of Magnesia) 30 ml PO Q72 PRN PRN Reason: Constipation Metoprolol Succinate (Toprol Xl) 12.5 mg PO DAILY [facility] Last Admin: 09/26/16 10:38 Dose: 12.5 mg Pantoprazole Sodium (Protonix Ec Tab) 40 mg PO DAILY [facility] Last Admin: 09/26/16 10:49 Dose: Not Given Ranolazine (Ranexa) 500 mg PO BID [facility] Last Admin: 09/26/16 10:37 Dose: 500 mg Rosuvastatin Calcium (Crestor) 20 mg PO HS [facility] Last Admin: 09/25/16 22:12 Dose: 20 mg Thiamine HCl (Vitamin B1 Tab) 100 mg PO DAILY [facility] Last Admin: 09/26/16 10:35 Dose: 100 mg - Labs Labs: 09/26/16 06:15 09/26/16 06:15 PT 13.8 SECONDS (9.7-12.2) H 09/16/16 20:54 INR 1.2 09/16/16 20:54 APTT 34 SECONDS (21-34) 09/16/16 20:54 Assessment and Plan (1) Pancytopenia Status: Acute
--- NOTE | 2016-09-26 12:50 | CP.PCM.CON ---
History of Present Illness - History of Present Illness History of Present Illness: 71 year old male with a history of DM, CAD complicated by NC s/p stent, PVD, pancytopenia with neutropenia, admitted from [facility] with hemoptysis secondary to pneumonia. The patient was seen by me during his last admission and required PRBC transfusion. He was severely neutropenic and was offerred a bone marrow biopsy but deferred this. He currently is agreeable to bone marrow biopsy. Past medial history: DM, CAD complicated by NC s/p stent, PVD Past surgical history: None Family history: Denies hematologic and oncologic problems Social history: Former tobacco and alcohol abuse. Allergies: NKA Review of systems: All remaining review of systems including HEENT, cardiovascular, respiratory, gastrointestinal, genitourinary, musculoskeletal, dermatologic, neurologic, and psychiatric are negative unless mentioned in the HPI. Past Patient History - Tetanus Immunizations Tetanus Immunization: Unknown - Past Medical History & Family History Past Medical History?: No - Past Social History Smoking Status: Former Smoker - CARDIAC Hx Cardiac Disorders: Yes (NC, Coronary Stent) Hx Hypercholesterolemia: Yes Hx Hypertension: Yes - PULMONARY Hx Respiratory Disorders: No - NEUROLOGICAL Hx Paralysis: No - HEENT Hx HEENT Problems: No - RENAL Hx Chronic Kidney Disease: Yes Hx Kidney Stones: Yes - ENDOCRINE/METABOLIC Hx Diabetes Mellitus Type 2: Yes - HEMATOLOGICAL/ONCOLOGICAL Hx Anemia: Yes - INTEGUMENTARY Hx Dermatological Problems: Yes Hx Cellulitis: Yes - MUSCULOSKELETAL/RHEUMATOLOGICAL Hx Musculoskeletal Disorders: Yes Hx Back Pain: Yes Hx Falls: Yes Hx Osteomyelitis: Yes Hx Spinal Stenosis: Yes - GASTROINTESTINAL Hx Gastrointestinal Disorders: No - GENITOURINARY/GYNECOLOGICAL Hx Genitourinary Disorders: No Hx Prostate Problems: Yes - PSYCHIATRIC Hx Substance Use: No - SURGICAL HISTORY Hx Coronary Stent: Yes - ANESTHESIA Hx Anesthesia: Yes Hx Anesthesia Reactions: No Hx Malignant Hyperthermia: No Meds Allergies/Adverse Reactions: Allergies Allergy/AdvReac Type Severity Reaction Status Date / Time No Known Allergies Allergy Verified 09/16/16 20:22 - Medications Medications: Current Medications Aspirin (Aspirin) 325 mg PO DAILY [facility] Last Admin: 09/26/16 10:35 Dose: 325 mg Folic Acid (Folic Acid) 1 mg PO DAILY [facility] Last Admin: 09/26/16 10:35 Dose: 1 mg Insulin Glargine (Lantus) 10 unit SC [facility] Last Admin: 09/25/16 22:13 Dose: 10 units Insulin Human Regular (Novolin R) 0 unit SC ACHS [facility] PRN Reason: Protocol Last Admin: 09/26/16 11:38 Dose: 1 unit Isosorbide Mononitrate (Imdur) 30 mg PO DAILY [facility] Last Admin: 09/26/16 10:35 Dose: 30 mg Magnesium Hydroxide (Milk Of Magnesia) 30 ml PO Q72 PRN PRN Reason: Constipation Metoprolol Succinate (Toprol Xl) 12.5 mg PO DAILY [facility] Last Admin: 09/26/16 10:38 Dose: 12.5 mg Pantoprazole Sodium (Protonix Ec Tab) 40 mg PO DAILY [facility] Last Admin: 09/26/16 10:49 Dose: Not Given Ranolazine (Ranexa) 500 mg PO BID [facility] Last Admin: 09/26/16 10:37 Dose: 500 mg Rosuvastatin Calcium (Crestor) 20 mg PO HS [facility] Last Admin: 09/25/16 22:12 Dose: 20 mg Thiamine HCl (Vitamin B1 Tab) 100 mg PO DAILY [facility] Last Admin: 09/26/16 10:35 Dose: 100 mg Physical Exam - Head Exam Head Exam: ATRAUMATIC - Eye Exam Eye Exam: Normal appearance - ENT Exam ENT Exam: Mucous Membranes Dry - Respiratory Exam Respiratory Exam: NORMAL BREATHING PATTERN - Cardiovascular Exam Cardiovascular Exam: +S1, +S2 - GI/Abdominal Exam GI & Abdominal Exam: Normal Bowel Sounds - Extremities Exam Additional comments: lower extremity dressing. Results - Vital Signs Recent Vital Signs: Last Vital Signs Temp 98.9 F 09/26/16 07:51 Pulse 79 09/26/16 07:51 Resp 20 09/26/16 07:51 BP 162/75 H 09/26/16 07:51 Pulse Ox 97 09/26/16 07:51 - Labs Result Diagrams: 09/26/16 06:15 09/26/16 06:15 Labs: Laboratory Results - last 24 hr 09/25/16 09/25/16 09/26/16 16:15 21:48 06:15 WBC 1.9 L* RBC 3.00 L Hgb 7.8 L Hct 23.7 L MCV 78.9 L MCH 26.1 L MCHC 33.1 RDW 20.9 H Plt Count 95 L MPV 9.1 Neut % (Auto) 15.3 L Lymph % (Auto) 47.2 H Talbot % (Auto) 31.3 H Eos % (Auto) 5.4 H Baso % (Auto) 0.8 Neut # 0.3 L Lymph # 0.9 L Talbot # 0.6 Eos # 0.1 Baso # 0.0 Neutrophils % (Manual) 26 L Lymphocytes % (Manual) 56 H Reactive Lymphs % 2 H Monocytes % (Manual) 12 H Eosinophils % (Manual) 4 Platelet Estimate Decreased L Hypochromasia (manual) Slight Poikilocytosis (manual Slight Basophilic Stippling Slight Anisocytosis (manual) Slight Microcytosis (manual) Slight Macrocytosis (manual) Slight Sodium Potassium Chloride Carbon Dioxide Anion Gap BUN Creatinine Est GFR ( Amer) Est GFR (Non-Af Amer) POC Glucose (mg/dL) 265 H 136 H Random Glucose Calcium Total Bilirubin AST ALT Alkaline Phosphatase Total Protein Albumin Globulin Albumin/Globulin Ratio 09/26/16 09/26/16 09/26/16 06:15 07:12 11:28 WBC RBC Hgb Hct MCV MCH MCHC RDW Plt Count MPV Neut % (Auto) Lymph % (Auto) Talbot % (Auto) Eos % (Auto) Baso % (Auto) Neut # Lymph # Talbot # Eos # Baso # Neutrophils % (Manual) Lymphocytes % (Manual) Reactive Lymphs % Monocytes % (Manual) Eosinophils % (Manual) Platelet Estimate Hypochromasia (manual) Poikilocytosis (manual Basophilic Stippling Anisocytosis (manual) Microcytosis (manual) Macrocytosis (manual) Sodium 137 Potassium 4.1 Chloride 102 Carbon Dioxide 27 Anion Gap 13 BUN 20 Creatinine 1.1 Est GFR ( Amer) > 60 Est GFR (Non-Af Amer) > 60 POC Glucose (mg/dL) 109 198 H Random Glucose 111 H Calcium 8.5 L Total Bilirubin 0.7 AST 16 L ALT 12 L Alkaline Phosphatase 87 Total Protein 7.0 Albumin 3.3 L Globulin 3.8 Albumin/Globulin Ratio 0.9 L Assessment & Plan (1) Pancytopenia Assessment and Plan: for bone marrow biopsy in AM neutropenic precautions. Status: Acute
--- NOTE | 2016-09-26 17:25 | CP.PCM.PN ---
Subjective - Date & Time of Evaluation Date of Evaluation: 09/26/16 Time of Evaluation: 09:00 - Subjective Subjective: no fever or hemoptysis follow up CXR ordered meds renewed labs reviewed Objective - Vital Signs/Intake and Output Vital Signs (last 24 hours): Temp Pulse Resp BP Pulse Ox 98.9 F 79 20 162/75 H 97 09/26/16 07:51 09/26/16 07:51 09/26/16 07:51 09/26/16 07:51 09/26/16 07:51 Intake and Output: 09/26/16 09/26/16 06:59 18:59 Intake Total 120 600 Balance 120 600 - Medications Medications: Current Medications Aspirin (Aspirin) 325 mg PO DAILY [facility] Last Admin: 09/26/16 10:35 Dose: 325 mg Folic Acid (Folic Acid) 1 mg PO DAILY [facility] Last Admin: 09/26/16 10:35 Dose: 1 mg Insulin Glargine (Lantus) 10 unit SC [facility] Last Admin: 09/25/16 22:13 Dose: 10 units Insulin Human Regular (Novolin R) 0 unit SC [facility] PRN Reason: Protocol Last Admin: 09/26/16 11:38 Dose: 1 unit Isosorbide Mononitrate (Imdur) 30 mg PO DAILY [facility] Last Admin: 09/26/16 10:35 Dose: 30 mg Magnesium Hydroxide (Milk Of Magnesia) 30 ml PO Q72 PRN PRN Reason: Constipation Metoprolol Succinate (Toprol Xl) 12.5 mg PO DAILY [facility] Last Admin: 09/26/16 10:38 Dose: 12.5 mg Pantoprazole Sodium (Protonix Ec Tab) 40 mg PO DAILY [facility] Last Admin: 09/26/16 14:38 Dose: 40 mg Ranolazine (Ranexa) 500 mg PO BID [facility] Last Admin: 09/26/16 10:37 Dose: 500 mg Rosuvastatin Calcium (Crestor) 20 mg PO HS [facility] Last Admin: 09/25/16 22:12 Dose: 20 mg Thiamine HCl (Vitamin B1 Tab) 100 mg PO DAILY [facility] Last Admin: 09/26/16 10:35 Dose: 100 mg - Labs Labs: 09/26/16 06:15 09/26/16 06:15 PT 13.8 SECONDS (9.7-12.2) H 09/16/16 20:54 INR 1.2 09/16/16 20:54 APTT 34 SECONDS (21-34) 09/16/16 20:54 - Constitutional Appears: Non-toxic, Chronically Ill - Head Exam Head Exam: NORMOCEPHALIC - Eye Exam Eye Exam: PERRL. absent: Scleral icterus - ENT Exam ENT Exam: Mucous Membranes Dry - Neck Exam Neck Exam: absent: Lymphadenopathy - Respiratory Exam Respiratory Exam: Decreased Breath Sounds, Rhonchi - Cardiovascular Exam Cardiovascular Exam: REGULAR RHYTHM, +S1, +S2 - GI/Abdominal Exam GI & Abdominal Exam: Soft - Rectal Exam Rectal Exam: Deferred - Exam Exam: NORMAL INSPECTION Assessment and Plan (1) Diabetes mellitus with ulcer of ankle Status: Acute (2) Infected ulcer of skin Status: Acute (3) PAD (peripheral artery disease) Status: Acute (4) CAD (coronary artery disease) Status: Chronic
[2016-09-26] MEDS: (Lantus) Insulin Glargine, Recombinant SC SCH (21:54)
--- NOTE | 2016-09-27 08:57 | RAD ---
Chest x-ray two views History: Pneumonia. Comparison: None available. Findings: Right PICC line with tip extending to the cavoatrial junction. Biapical pleural thickening with upper lobe granulomatous changes. Bilateral hilar prominence. Small nodular density seen in the right lower lung zone which may represent a nodule versus granuloma versus prominent vessel on end. Clinical correlation. Correlation with chest CT may be helpful if clinically indicated. No gross focal infiltrate or effusion. Degenerative changes in the spine with paravertebral osteophytes. Impression: No focal infiltrate or effusion. Additional findings as above.
[2016-09-27] MEDS: (Lantus) Insulin Glargine, Recombinant SC SCH (21:26)
[2016-09-27] MEDS: (Novolin R) Insulin Human Regular 100 units/ml vial SC SCH (22:16)
--- NOTE | 2016-09-27 22:29 | CP.PCM.PN ---
Subjective - Date & Time of Evaluation Date of Evaluation: 09/27/16 Time of Evaluation: 13:00 - Subjective Subjective: clinically same Objective - Vital Signs/Intake and Output Vital Signs (last 24 hours): Temp Pulse Resp BP Pulse Ox 98.1 F 78 20 141/60 98 09/27/16 15:35 09/27/16 15:35 09/27/16 15:35 09/27/16 15:35 09/27/16 15:35 - Medications Medications: Current Medications Aspirin (Aspirin) 325 mg PO DAILY [facility] Last Admin: 09/26/16 10:35 Dose: 325 mg Folic Acid (Folic Acid) 1 mg PO DAILY [facility] Last Admin: 09/26/16 10:35 Dose: 1 mg Ceftriaxone Sodium 1 gm/ (Sodium Chloride) 100 mls @ 200 mls/hr IVPB Q12H [facility] Last Admin: 09/27/16 21:30 Dose: 200 mls/hr Insulin Glargine (Lantus) 10 unit SC HS [facility] Last Admin: 09/27/16 21:26 Dose: 10 units Insulin Human Regular (Novolin R) 0 unit SC ACHS [facility] PRN Reason: Protocol Last Admin: 09/27/16 22:16 Dose: Not Given Isosorbide Mononitrate (Imdur) 30 mg PO DAILY [facility] Last Admin: 09/26/16 10:35 Dose: 30 mg Magnesium Hydroxide (Milk Of Magnesia) 30 ml PO Q72 PRN PRN Reason: Constipation Metoprolol Succinate (Toprol Xl) 12.5 mg PO DAILY [facility] Last Admin: 09/26/16 10:38 Dose: 12.5 mg Pantoprazole Sodium (Protonix Ec Tab) 40 mg PO DAILY [facility] Last Admin: 09/26/16 14:38 Dose: 40 mg Ranolazine (Ranexa) 500 mg PO BID [facility] Last Admin: 09/26/16 17:40 Dose: 500 mg Rosuvastatin Calcium (Crestor) 20 mg PO HS [facility] Last Admin: 09/27/16 21:26 Dose: 20 mg Thiamine HCl (Vitamin B1 Tab) 100 mg PO DAILY [facility] Last Admin: 09/26/16 10:35 Dose: 100 mg - Labs Labs: 09/26/16 06:15 09/26/16 06:15 PT 13.8 SECONDS (9.7-12.2) H 09/16/16 20:54 INR 1.2 09/16/16 20:54 APTT 34 SECONDS (21-34) 09/16/16 20:54 - Constitutional Appears: Well - Head Exam Head Exam: ATRAUMATIC, NORMAL INSPECTION, NORMOCEPHALIC - Eye Exam Eye Exam: EOMI, Normal appearance, PERRL Pupil Exam: NORMAL ACCOMODATION, PERRL - ENT Exam ENT Exam: Mucous Membranes Moist, Normal Exam - Neck Exam Neck Exam: Full ROM, Normal Inspection. 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
[2016-09-28 07:34] LABS: BASO % 0.9 % (0.0-2.0); EOS # 0.1 K/uL (0.0-0.7); EOS % 4.8 % (0.0-4.0); HEMATOCRIT 23.7 % (35.0-51.0); LYMPH % 51.8 % (20.0-40.0); MEAN CELL VOLUME 78.3 fL (80.0-94.0); MEAN CORPUSCULAR HEMOGLOBIN 26.6 pg (27.0-31.0); MEAN PLATELET VOLUME 9.1 fL (7.2-11.7); MONO # 0.5 K/uL (0.0-0.8); NRBC % 0.2 % (0.0-2.0); PLATELET COUNT 89 K/uL (130-400); RED CELL DISTRIBUTION WIDTH 21.8 % (11.5-14.5)
[2016-09-28 07:40] LABS: WHITE BLOOD COUNT 1.9 K/uL (4.8-10.8)
[2016-09-28 07:54] LABS: CHLORIDE 102 mmol/L (98-107); POTASSIUM 4.1 mmol/L (3.6-5.2); SODIUM 138 mmol/L (132-148)
[2016-09-28] MEDS: (Novolin R) Insulin Human Regular 100 units/ml vial SC SCH ×4 (07:54→21:46)
[2016-09-28 07:56] LABS: GFR AFRICAN-AMERICAN > 60
[2016-09-28 07:57] LABS: ALB/GLOB RATIO 0.9 (1.0-2.1); ALKALINE PHOSPHATASE 93 U/L (38-126); ALT/SGPT 10 U/L (21-72); AST/SGOT 20 U/L (17-59); BILIRUBIN,TOTAL 0.6 mg/dL (0.2-1.3); BLOOD UREA NITROGEN 21 mg/dL (9-20); CARBON DIOXIDE 25 mmol/L (22-30); GLUCOSE,RANDOM 111 mg/dL (75-110); TOTAL PROTEIN 6.9 g/dL (6.3-8.3)
[2016-09-28 07:58] LABS: CALCIUM 8.5 mg/dl (8.6-10.4)
[2016-09-28] MEDS: Pantoprazole 40 mg EC Tab PO SCH (09:42)
[2016-09-28] MEDS: Metoprolol Succinate 12.5 mg XL PO SCH (09:45)
[2016-09-28] MEDS: Ranolazine 500 mg Extended Release Tablets PO SCH ×2 (09:45→18:38)
--- NOTE | 2016-09-28 09:52 | CP.PCM.PN ---
<Carmen Pisano - Last Filed: 09/28/16 10:11> Subjective - Date & Time of Evaluation Date of Evaluation: 09/28/16 Time of Evaluation: 10:12 - Subjective Subjective: Medicine Progress Note Pt seen and examined at bedside. No acute events overnight. Patient denies chest pain and shortness of breath. Discharge planning. Objective - Vital Signs/Intake and Output Vital Signs (last 24 hours): Temp Pulse Resp BP Pulse Ox 98.2 F 105 H 20 122/64 97 09/28/16 08:13 09/28/16 08:13 09/28/16 08:13 09/28/16 08:13 09/28/16 08:13 - Medications Medications: Current Medications Aspirin (Aspirin) 325 mg PO DAILY [facility] Last Admin: 09/28/16 09:43 Dose: 325 mg Folic Acid (Folic Acid) 1 mg PO DAILY [facility] Last Admin: 09/28/16 09:43 Dose: 1 mg Ceftriaxone Sodium 1 gm/ (Sodium Chloride) 100 mls @ 200 mls/hr IVPB Q12H [facility] Last Admin: 09/28/16 09:42 Dose: 200 mls/hr Insulin Glargine (Lantus) 10 unit SC [facility] Last Admin: 09/27/16 21:26 Dose: 10 units Insulin Human Regular (Novolin R) 0 unit SC [facility] PRN Reason: Protocol Last Admin: 09/28/16 07:54 Dose: Not Given Isosorbide Mononitrate (Imdur) 30 mg PO DAILY [facility] Last Admin: 09/28/16 09:42 Dose: 30 mg Magnesium Hydroxide (Milk Of Magnesia) 30 ml PO Q72 PRN PRN Reason: Constipation Metoprolol Succinate (Toprol Xl) 12.5 mg PO DAILY [facility] Last Admin: 09/28/16 09:45 Dose: 12.5 mg Pantoprazole Sodium (Protonix Ec Tab) 40 mg PO DAILY [facility] Last Admin: 09/28/16 09:42 Dose: 40 mg Ranolazine (Ranexa) 500 mg PO BID [facility] Last Admin: 09/28/16 09:45 Dose: 500 mg Rosuvastatin Calcium (Crestor) 20 mg PO HS [facility] Last Admin: 09/27/16 21:26 Dose: 20 mg Thiamine HCl (Vitamin B1 Tab) 100 mg PO DAILY [facility] Last Admin: 09/28/16 09:43 Dose: 100 mg - Labs Labs: 09/28/16 07:14 09/28/16 07:14 PT 13.8 SECONDS (9.7-12.2) H 09/16/16 20:54 INR 1.2 09/16/16 20:54 APTT 34 SECONDS (21-34) 09/16/16 20:54 - Additional Findings Additional findings: - Constitutional Appears: Non-toxic, No Acute Distress, Chronically Ill - Head Exam Head Exam: NORMOCEPHALIC - Respiratory Exam Respiratory Exam: Clear to Ausculation Bilateral, NORMAL BREATHING PATTERN. absent: Rales, Rhonchi, Wheezes - Cardiovascular Exam Cardiovascular Exam: REGULAR RHYTHM, +S1, +S2. absent: Gallop, Rubs - GI/Abdominal Exam GI & Abdominal Exam: Soft, Normal Bowel Sounds - Extremities Exam Additional comments: RLE dressing C/D/I - Neurological Exam Neurological Exam: Alert, Awake, Oriented x3 - Psychiatric Exam Psychiatric exam: Normal Mood - Skin Skin Exam: Intact Assessment and Plan - Assessment and Plan (Free Text) Assessment: Hemoptysis Resolved. No more episodes in hospital. 40ml red blood reported at [facility] per ED note. Dr. Ross and Dario consulted, help appreciated. CXR showed RUL infiltrate. Procalcitonin level low. Rocephin 1gm IVPB Q12h started 09/17, patient needs to have either 2g daily or 1g q12H until 10/08, per Dr. Bishop. CT angio showed RUL pneumonia (see full report). Quantiferon gold test negative. AFB stain negative. Pancytopenia Chronic. Standard neutropenic precautions. Heme/onc dr. Nguyen consulted. Consulted Hemeonc- Dr. Miguel Knutson IV Ferrlecit. s/p Bone marrow biopsy with Dr. Knutson Right foot infection Podiatry Dr. Ramirez consulted, help appreciated. Left arm swelling Venous doppler showed left arm cephalic vein thrombosis. Vascular Dr. Lugo consulted, help appreciated. Symptomatic treatment for now. DM Lantus 10U SC HS [facility], accucheck. Prophylactic measure Protonix PO. SCD and HepSQ contraindicated. Management per Dr. Ramírez. DC Planning- case management currently trying to find MARTHA in the patient's insurance network <Santiago Ramírez S - Last Filed: 09/28/16 15:12> Objective - Vital Signs/Intake and Output Vital Signs (last 24 hours): Temp Pulse Resp BP Pulse Ox 98.2 F 105 H 20 122/64 97 09/28/16 08:13 09/28/16 08:13 09/28/16 08:13 09/28/16 08:13 09/28/16 08:13 Intake and Output: 09/28/16 09/28/16 06:59 18:59 Intake Total 580 Balance 580 - Medications Medications: Current Medications Aspirin (Aspirin) 325 mg PO DAILY [facility] Last Admin: 09/28/16 09:43 Dose: 325 mg Folic Acid (Folic Acid) 1 mg PO DAILY [facility] Last Admin: 09/28/16 09:43 Dose: 1 mg Ceftriaxone Sodium 1 gm/ (Sodium Chloride) 100 mls @ 200 mls/hr IVPB Q12H [facility] Last Admin: 09/28/16 09:42 Dose: 200 mls/hr Insulin Glargine (Lantus) 10 unit SC [facility] Last Admin: 09/27/16 21:26 Dose: 10 units Insulin Human Regular (Novolin R) 0 unit SC ACHS [facility] PRN Reason: Protocol Last Admin: 09/28/16 12:01 Dose: 1 unit Isosorbide Mononitrate (Imdur) 30 mg PO DAILY [facility] Last Admin: 09/28/16 09:42 Dose: 30 mg Lactic Acid (Lac-Hydrin 12% Lotion (225 G)) 0 gm EXT BID [facility] Magnesium Hydroxide (Milk Of Magnesia) 30 ml PO Q72 PRN PRN Reason: Constipation Metoprolol Succinate (Toprol Xl) 12.5 mg PO DAILY [facility] Last Admin: 09/28/16 09:45 Dose: 12.5 mg Pantoprazole Sodium (Protonix Ec Tab) 40 mg PO DAILY [facility] Last Admin: 09/28/16 09:42 Dose: 40 mg Ranolazine (Ranexa) 500 mg PO BID [facility] Last Admin: 09/28/16 09:45 Dose: 500 mg Rosuvastatin Calcium (Crestor) 20 mg PO HS [facility] Last Admin: 09/27/16 21:26 Dose: 20 mg Thiamine HCl (Vitamin B1 Tab) 100 mg PO DAILY [facility] Last Admin: 09/28/16 09:43 Dose: 100 mg - Labs Labs: 09/28/16 07:14 09/28/16 07:14 PT 13.8 SECONDS (9.7-12.2) H 09/16/16 20:54 INR 1.2 09/16/16 20:54 APTT 34 SECONDS (21-34) 09/16/16 20:54 Attending/Attestation - Attestation I have personally seen and examined this patient.: Yes I have fully participated in the care of the patient.: Yes I have reviewed all pertinent clinical information, including history, physical exam and plan: Yes Notes (Text): iv ferrilecit neutropenia heme onc miguel knutson watch for [facility] cmp [place] sme iv antibiotc other ocnsultation Pancytocytopenia
[2016-09-28 10:02] LABS: BASOPHIL 2 % (0-2); EOSINOPHIL 4 % (0-4); NEUTROPHIL 24 % (50-75); TOTAL CELLS COUNTED 100
--- NOTE | 2016-09-28 12:24 | CP.PCM.PN ---
Subjective - Date & Time of Evaluation Date of Evaluation: 09/28/16 Time of Evaluation: 12:30 - Subjective Subjective: 71 y/o male was seen and evaluated at bedside today for f/u on RLE ulceration. Patient was resting comfortably in bed, in NAD. He denies any pain in his RLE. Denies any F/C/N/V/SOB/CP. Complains of mild dryness to bottom of Right foot. No other pedal complaints reported. RLE dressing appears to be C/D/I. Objective - Vital Signs/Intake and Output Vital Signs (last 24 hours): Temp Pulse Resp BP Pulse Ox 98.2 F 105 H 20 122/64 97 09/28/16 08:13 09/28/16 08:13 09/28/16 08:13 09/28/16 08:13 09/28/16 08:13 - Medications Medications: Current Medications Aspirin (Aspirin) 325 mg PO DAILY [facility] Last Admin: 09/28/16 09:43 Dose: 325 mg Folic Acid (Folic Acid) 1 mg PO DAILY [facility] Last Admin: 09/28/16 09:43 Dose: 1 mg Ceftriaxone Sodium 1 gm/ (Sodium Chloride) 100 mls @ 200 mls/hr IVPB Q12H [facility] Last Admin: 09/28/16 09:42 Dose: 200 mls/hr Insulin Glargine (Lantus) 10 unit SC [facility] Last Admin: 09/27/16 21:26 Dose: 10 units Insulin Human Regular (Novolin R) 0 unit SC ACHS [facility] PRN Reason: Protocol Last Admin: 09/28/16 12:01 Dose: 1 unit Isosorbide Mononitrate (Imdur) 30 mg PO DAILY [facility] Last Admin: 09/28/16 09:42 Dose: 30 mg Magnesium Hydroxide (Milk Of Magnesia) 30 ml PO Q72 PRN PRN Reason: Constipation Metoprolol Succinate (Toprol Xl) 12.5 mg PO DAILY [facility] Last Admin: 09/28/16 09:45 Dose: 12.5 mg Pantoprazole Sodium (Protonix Ec Tab) 40 mg PO DAILY [facility] Last Admin: 09/28/16 09:42 Dose: 40 mg Ranolazine (Ranexa) 500 mg PO BID [facility] Last Admin: 09/28/16 09:45 Dose: 500 mg Rosuvastatin Calcium (Crestor) 20 mg PO HS [facility] Last Admin: 09/27/16 21:26 Dose: 20 mg Thiamine HCl (Vitamin B1 Tab) 100 mg PO DAILY [facility] Last Admin: 09/28/16 09:43 Dose: 100 mg - Labs Labs: 09/28/16 07:14 09/28/16 07:14 PT 13.8 SECONDS (9.7-12.2) H 09/16/16 20:54 INR 1.2 09/16/16 20:54 APTT 34 SECONDS (21-34) 09/16/16 20:54 - Constitutional Appears: Non-toxic, No Acute Distress - Neurological Exam Neurological Exam: Alert, Awake, Oriented x3 - Psychiatric Exam Psychiatric exam: Normal Affect, Normal Mood - Skin Skin Exam: Dry, Warm. absent: Erythema - Additional Findings Additional findings: RLE exam: DERMATOLOGIC: Right lower extremity anteromedial leg ulceration, does not probe deep, granular base, mild serous drainage, no purulence, no undermining, no erythema or tracking present. The surrounding skin is intact. There is xerosis noted bilaterally. VASCULAR: DP/PT pulses 2/4, EGG SEPARATOR<3 seconds, skin temperature is normal NEUROLOGIC: Gross sensation intact, motor function intact ORTHOPEDIC: Mild pain on palpation to the wound site Assessment and Plan - Assessment and Plan (Free Text) Assessment: 71 y/o M with chronic Right ankle/lower leg stasis ulceration Plan: Patient seen and evaluated at bedside Labs and vitals reviewed RLE dressing changed with Xeroform DSD Ordered ammonium lactate cream, to be applied BID to affected areas As per social work, possible transfer to [facility] if patient comes off of isolation Discussed patient with attending, Dr. Ramirez Podiatry to follow while patient remains in house
--- NOTE | 2016-09-28 14:13 | CP.PCM.PN ---
Subjective - Date & Time of Evaluation Date of Evaluation: 09/28/16 Time of Evaluation: 08:00 - Subjective Subjective: AFEBRILE NEUTROPENIC NO NEW + CULTURES Objective - Vital Signs/Intake and Output Vital Signs (last 24 hours): Temp Pulse Resp BP Pulse Ox 98.2 F 105 H 20 122/64 97 09/28/16 08:13 09/28/16 08:13 09/28/16 08:13 09/28/16 08:13 09/28/16 08:13 - Medications Medications: Current Medications Aspirin (Aspirin) 325 mg PO DAILY [facility] Last Admin: 09/28/16 09:43 Dose: 325 mg Folic Acid (Folic Acid) 1 mg PO DAILY [facility] Last Admin: 09/28/16 09:43 Dose: 1 mg Ceftriaxone Sodium 1 gm/ (Sodium Chloride) 100 mls @ 200 mls/hr IVPB Q12H [facility] Last Admin: 09/28/16 09:42 Dose: 200 mls/hr Insulin Glargine (Lantus) 10 unit SC [facility] Last Admin: 09/27/16 21:26 Dose: 10 units Insulin Human Regular (Novolin R) 0 unit SC [facility] PRN Reason: Protocol Last Admin: 09/28/16 12:01 Dose: 1 unit Isosorbide Mononitrate (Imdur) 30 mg PO DAILY [facility] Last Admin: 09/28/16 09:42 Dose: 30 mg Magnesium Hydroxide (Milk Of Magnesia) 30 ml PO Q72 PRN PRN Reason: Constipation Metoprolol Succinate (Toprol Xl) 12.5 mg PO DAILY [facility] Last Admin: 09/28/16 09:45 Dose: 12.5 mg Pantoprazole Sodium (Protonix Ec Tab) 40 mg PO DAILY [facility] Last Admin: 09/28/16 09:42 Dose: 40 mg Ranolazine (Ranexa) 500 mg PO BID [facility] Last Admin: 09/28/16 09:45 Dose: 500 mg Rosuvastatin Calcium (Crestor) 20 mg PO HS [facility] Last Admin: 09/27/16 21:26 Dose: 20 mg Thiamine HCl (Vitamin B1 Tab) 100 mg PO DAILY [facility] Last Admin: 09/28/16 09:43 Dose: 100 mg - Labs Labs: 09/28/16 07:14 09/28/16 07:14 PT 13.8 SECONDS (9.7-12.2) H 09/16/16 20:54 INR 1.2 09/16/16 20:54 APTT 34 SECONDS (21-34) 09/16/16 20:54 - Constitutional Appears: Non-toxic, Cachectic, Chronically Ill - Head Exam Head Exam: NORMOCEPHALIC - Eye Exam Eye Exam: absent: Scleral icterus - ENT Exam ENT Exam: Mucous Membranes Dry - Neck Exam Neck Exam: absent: Lymphadenopathy - Respiratory Exam Respiratory Exam: Decreased Breath Sounds, Rhonchi - Cardiovascular Exam Cardiovascular Exam: REGULAR RHYTHM, +S1, +S2 - GI/Abdominal Exam GI & Abdominal Exam: Soft. absent: Tenderness - Rectal Exam Rectal Exam: Deferred - Exam Exam: NORMAL INSPECTION - Extremities Exam Extremities Exam: absent: Calf Tenderness, Pedal Edema - Back Exam Back Exam: absent: CVA tenderness (L), CVA tenderness (R) - Neurological Exam Neurological Exam: Alert, Awake, Oriented x3 - Psychiatric Exam Psychiatric exam: Depressed - Skin Skin Exam: Dry Assessment and Plan (1) Diabetes mellitus with ulcer of ankle Status: Acute (2) Infected ulcer of skin Status: Acute (3) PAD (peripheral artery disease) Status: Acute (4) CAD (coronary artery disease) Status: Chronic - Assessment and Plan (Free Text) Assessment: CONT IV RX FOR ANKLE WOUND CONT NEUTROPENIC PRECAUTIONS OBSERVE FOR FEVER BONE MARROW BX PENDING
[2016-09-28] MEDS: Ammonium Lactate 12% Lotion (225 g) EXT SCH (18:28)
[2016-09-28] MEDS: (Lantus) Insulin Glargine, Recombinant SC SCH (21:47)
[2016-09-29 07:42] LABS: BASO % 0.5 % (0.0-2.0); EOS # 0.1 K/uL (0.0-0.7); EOS % 5.5 % (0.0-4.0); HEMATOCRIT 23.4 % (35.0-51.0); LYMPH # 0.9 K/uL (1.0-4.3); LYMPH % 50.4 % (20.0-40.0); MEAN CELL VOLUME 78.3 fL (80.0-94.0); MEAN CORPUSCULAR HEMOGLOBIN 26.6 pg (27.0-31.0); MEAN PLATELET VOLUME 9.4 fL (7.2-11.7); MONO # 0.5 K/uL (0.0-0.8); MONO % 29.9 % (0.0-10.0); NRBC % 0.2 % (0.0-2.0); PLATELET COUNT 91 K/uL (130-400); RED CELL DISTRIBUTION WIDTH 21.6 % (11.5-14.5)
[2016-09-29 07:45] LABS: WHITE BLOOD COUNT 1.7 K/uL (4.8-10.8)
[2016-09-29] MEDS: (Novolin R) Insulin Human Regular 100 units/ml vial SC SCH ×4 (07:59→22:31)
[2016-09-29 08:22] LABS: CHLORIDE 102 mmol/L (98-107); SODIUM 140 mmol/L (132-148)
[2016-09-29 08:23] LABS: POTASSIUM 4.1 mmol/L (3.6-5.2)
[2016-09-29 08:25] LABS: ALB/GLOB RATIO 0.9 (1.0-2.1); ALKALINE PHOSPHATASE 89 U/L (38-126); ALT/SGPT 8 U/L (21-72); AST/SGOT 18 U/L (17-59); BILIRUBIN,TOTAL 0.6 mg/dL (0.2-1.3); BLOOD UREA NITROGEN 20 mg/dL (9-20); CARBON DIOXIDE 25 mmol/L (22-30); GFR AFRICAN-AMERICAN > 60; GLUCOSE,RANDOM 117 mg/dL (75-110); TOTAL PROTEIN 7.2 g/dL (6.3-8.3)
[2016-09-29 08:26] LABS: CALCIUM 8.5 mg/dl (8.6-10.4)
[2016-09-29 09:37] LABS: EOSINOPHIL 6 % (0-4); NEUTROPHIL 10 % (50-75); NUCLEATED RED BLOOD CELL 1 % (0-0); TOTAL CELLS COUNTED 100
[2016-09-29 09:38] LABS: LARGE PLATELETS PRESENT
[2016-09-29] MEDS: Pantoprazole 40 mg EC Tab PO SCH (10:08)
[2016-09-29] MEDS: Ammonium Lactate 12% Lotion (225 g) EXT SCH ×2 (10:09→17:28)
[2016-09-29] MEDS: Ranolazine 500 mg Extended Release Tablets PO SCH ×2 (10:09→17:27)
[2016-09-29] MEDS: Metoprolol Succinate 12.5 mg XL PO SCH (10:10)
--- NOTE | 2016-09-29 10:24 | CP.PCM.PN ---
Subjective - Date & Time of Evaluation Date of Evaluation: 09/29/16 Time of Evaluation: 10:22 - Subjective Subjective: 71 y/o male was seen and evaluated at bedside today for f/u on RLE ulceration. Patient was resting comfortably in bed, in NAD. He denies any pain in his RLE. Denies any F/C/N/V/SOB/CP. Complains of mild dryness to bottom of Right foot. No other pedal complaints reported. RLE dressing appears to be C/D/I. Objective - Vital Signs/Intake and Output Vital Signs (last 24 hours): Temp Pulse Resp BP Pulse Ox 97.5 F L 70 20 155/85 H 98 09/29/16 08:10 09/29/16 08:10 09/29/16 08:10 09/29/16 08:10 09/29/16 08:10 Intake and Output: 09/29/16 09/29/16 06:59 18:59 Intake Total 840 Output Total 400 Balance 440 - Medications Medications: Current Medications Aspirin (Aspirin) 325 mg PO DAILY [facility] Last Admin: 09/29/16 10:09 Dose: 325 mg Folic Acid (Folic Acid) 1 mg PO DAILY [facility] Last Admin: 09/29/16 10:09 Dose: 1 mg Ceftriaxone Sodium 1 gm/ (Sodium Chloride) 100 mls @ 200 mls/hr IVPB Q12H [facility] Last Admin: 09/29/16 10:08 Dose: 200 mls/hr Insulin Glargine (Lantus) 10 unit SC HS [facility] Last Admin: 09/28/16 21:47 Dose: 10 units Insulin Human Regular (Novolin R) 0 unit SC ACHS [facility] PRN Reason: Protocol Last Admin: 09/29/16 07:59 Dose: Not Given Isosorbide Mononitrate (Imdur) 30 mg PO DAILY [facility] Last Admin: 09/29/16 10:08 Dose: 30 mg Lactic Acid (Lac-Hydrin 12% Lotion (225 G)) 0 gm EXT BID [facility] Last Admin: 09/29/16 10:09 Dose: 1 applic Magnesium Hydroxide (Milk Of Magnesia) 30 ml PO Q72 PRN PRN Reason: Constipation Metoprolol Succinate (Toprol Xl) 12.5 mg PO DAILY [facility] Last Admin: 09/29/16 10:10 Dose: 12.5 mg Pantoprazole Sodium (Protonix Ec Tab) 40 mg PO DAILY [facility] Last Admin: 09/29/16 10:08 Dose: 40 mg Ranolazine (Ranexa) 500 mg PO BID [facility] Last Admin: 09/29/16 10:09 Dose: 500 mg Rosuvastatin Calcium (Crestor) 20 mg PO HS [facility] Last Admin: 09/28/16 21:40 Dose: 20 mg Thiamine HCl (Vitamin B1 Tab) 100 mg PO DAILY [facility] Last Admin: 09/29/16 10:09 Dose: 100 mg - Labs Labs: 09/29/16 07:20 09/29/16 07:20 PT 13.8 SECONDS (9.7-12.2) H 09/16/16 20:54 INR 1.2 09/16/16 20:54 APTT 34 SECONDS (21-34) 09/16/16 20:54 - Constitutional Appears: Well, Non-toxic, No Acute Distress - Additional Findings Additional findings: RLE exam: DERMATOLOGIC: Right lower extremity anteromedial leg ulceration, does not probe deep, granular base, mild serous drainage, no purulence, no undermining, no erythema or tracking present. The surrounding skin is intact. There is xerosis noted bilaterally. VASCULAR: DP/PT pulses 2/4, PLANT ENGINEERING SUPERVISOR<3 seconds, skin temperature is normal NEUROLOGIC: Gross sensation intact, motor function intact ORTHOPEDIC: Mild pain on palpation to the wound site Assessment and Plan - Assessment and Plan (Free Text) Assessment: 71 y/o M with chronic Right ankle/lower leg stasis ulceration Plan: Patient seen and evaluated at bedside Discussed in detail with Dr. Ramirez Labs and vitals reviewed RLE dressing left CDI today If patient is d/c at the rehab to continue with daily dressing changes of DSD wit underlying xeroform and application of ammonium lactate cream to dry skin areas. Ammonium lactate applied w/o complication Trending WBC and possible transfer to [facility] if patient comes off of isolation Will continue to follow while admitted.
--- NOTE | 2016-09-29 12:31 | CP.PCM.PN ---
Subjective - Date & Time of Evaluation Date of Evaluation: 09/29/16 Time of Evaluation: 07:00 - Subjective Subjective: clinically same Objective - Vital Signs/Intake and Output Vital Signs (last 24 hours): Temp Pulse Resp BP Pulse Ox 97.5 F L 70 20 155/85 H 98 09/29/16 08:10 09/29/16 08:10 09/29/16 08:10 09/29/16 08:10 09/29/16 08:10 Intake and Output: 09/29/16 09/29/16 06:59 18:59 Intake Total 840 580 Output Total 400 Balance 440 580 - Medications Medications: Current Medications Aspirin (Aspirin) 325 mg PO DAILY [facility] Last Admin: 09/29/16 10:09 Dose: 325 mg Folic Acid (Folic Acid) 1 mg PO DAILY [facility] Last Admin: 09/29/16 10:09 Dose: 1 mg Ceftriaxone Sodium 1 gm/ (Sodium Chloride) 100 mls @ 200 mls/hr IVPB Q12H [facility] Last Admin: 09/29/16 10:08 Dose: 200 mls/hr Insulin Glargine (Lantus) 10 unit SC [facility] Last Admin: 09/28/16 21:47 Dose: 10 units Insulin Human Regular (Novolin R) 0 unit SC ACHS [facility] PRN Reason: Protocol Last Admin: 09/29/16 12:16 Dose: 1 unit Isosorbide Mononitrate (Imdur) 30 mg PO DAILY [facility] Last Admin: 09/29/16 10:08 Dose: 30 mg Lactic Acid (Lac-Hydrin 12% Lotion (225 G)) 0 gm EXT BID [facility] Last Admin: 09/29/16 10:09 Dose: 1 applic Magnesium Hydroxide (Milk Of Magnesia) 30 ml PO Q72 PRN PRN Reason: Constipation Metoprolol Succinate (Toprol Xl) 12.5 mg PO DAILY [facility] Last Admin: 09/29/16 10:10 Dose: 12.5 mg Pantoprazole Sodium (Protonix Ec Tab) 40 mg PO DAILY [facility] Last Admin: 09/29/16 10:08 Dose: 40 mg Ranolazine (Ranexa) 500 mg PO BID [facility] Last Admin: 09/29/16 10:09 Dose: 500 mg Rosuvastatin Calcium (Crestor) 20 mg PO [facility] Last Admin: 09/28/16 21:40 Dose: 20 mg Thiamine HCl (Vitamin B1 Tab) 100 mg PO DAILY [facility] Last Admin: 09/29/16 10:09 Dose: 100 mg - Labs Labs: 09/29/16 07:20 09/29/16 07:20 PT 13.8 SECONDS (9.7-12.2) H 09/16/16 20:54 INR 1.2 09/16/16 20:54 APTT 34 SECONDS (21-34) 09/16/16 20:54 - Constitutional Appears: Well - Head Exam Head Exam: ATRAUMATIC, NORMAL INSPECTION, NORMOCEPHALIC - Eye Exam Eye Exam: EOMI, Normal appearance, PERRL Pupil Exam: NORMAL ACCOMODATION, PERRL - ENT Exam ENT Exam: Mucous Membranes Moist, Normal Exam - Neck Exam Neck Exam: Full ROM, Normal Inspection. absent: Lymphadenopathy - Respiratory Exam Respiratory Exam: Decreased Breath Sounds - Cardiovascular Exam Cardiovascular Exam: REGULAR RHYTHM, +S1, +S2 - GI/Abdominal Exam GI & Abdominal Exam: Soft, Diminished Bowel Sounds - Rectal Exam Rectal Exam: Deferred Assessment and Plan (1) Gastrointestinal hemorrhage Status: Acute (2) Pneumonia Status: Acute (3) Anemia Status: Acute (4) Chest pain Status: Acute (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 Status: Acute (6) Diabetes mellitus, new onset Status: Acute (7) Infected ulcer of skin Status: Acute (8) PAD (peripheral artery disease) Status: Acute (9) Pancytopenia Status: Acute (10) Prophylactic measure Status: Acute (11) CAD (coronary artery disease) Status: Chronic (12) Diabetes mellitus Status: Chronic - Assessment and Plan (Free Text) Plan: Follow-up GI Follow-up exercise physiologist certified Follow-up ID Continue antibiotics as ordered Protonix Thiamine Continue wound care Patient can be transferred to [facility] patient comes off of isolation
--- NOTE | 2016-09-29 14:12 | CP.PCM.PN ---
Subjective - Date & Time of Evaluation Date of Evaluation: 09/29/16 Time of Evaluation: 02:10 - Subjective Subjective: pt seen on round resting in bed with no complaints.bandages clean ,dry and intact. Objective - Vital Signs/Intake and Output Vital Signs (last 24 hours): Temp Pulse Resp BP Pulse Ox 97.5 F L 70 20 155/85 H 98 09/29/16 08:10 09/29/16 08:10 09/29/16 08:10 09/29/16 08:10 09/29/16 08:10 Intake and Output: 09/29/16 09/29/16 06:59 18:59 Intake Total 840 580 Output Total 400 400 Balance 440 180 - Medications Medications: Current Medications Aspirin (Aspirin) 325 mg PO DAILY [facility] Last Admin: 09/29/16 10:09 Dose: 325 mg Folic Acid (Folic Acid) 1 mg PO DAILY [facility] Last Admin: 09/29/16 10:09 Dose: 1 mg Ceftriaxone Sodium 1 gm/ (Sodium Chloride) 100 mls @ 200 mls/hr IVPB Q12H [facility] Last Admin: 09/29/16 10:08 Dose: 200 mls/hr Insulin Glargine (Lantus) 10 unit SC [facility] Last Admin: 09/28/16 21:47 Dose: 10 units Insulin Human Regular (Novolin R) 0 unit SC ACHS [facility] PRN Reason: Protocol Last Admin: 09/29/16 12:16 Dose: 1 unit Isosorbide Mononitrate (Imdur) 30 mg PO DAILY [facility] Last Admin: 09/29/16 10:08 Dose: 30 mg Lactic Acid (Lac-Hydrin 12% Lotion (225 G)) 0 gm EXT BID [facility] Last Admin: 09/29/16 10:09 Dose: 1 applic Magnesium Hydroxide (Milk Of Magnesia) 30 ml PO Q72 PRN PRN Reason: Constipation Metoprolol Succinate (Toprol Xl) 12.5 mg PO DAILY [facility] Last Admin: 09/29/16 10:10 Dose: 12.5 mg Pantoprazole Sodium (Protonix Ec Tab) 40 mg PO DAILY [facility] Last Admin: 09/29/16 10:08 Dose: 40 mg Ranolazine (Ranexa) 500 mg PO BID [facility] Last Admin: 09/29/16 10:09 Dose: 500 mg Rosuvastatin Calcium (Crestor) 20 mg PO HS [facility] Last Admin: 09/28/16 21:40 Dose: 20 mg Thiamine HCl (Vitamin B1 Tab) 100 mg PO DAILY [facility] Last Admin: 09/29/16 10:09 Dose: 100 mg - Labs Labs: 09/29/16 07:20 09/29/16 07:20 PT 13.8 SECONDS (9.7-12.2) H 09/16/16 20:54 INR 1.2 09/16/16 20:54 APTT 34 SECONDS (21-34) 09/16/16 20:54 - Extremities Exam Additional comments: O/Venous ulcer ankle right improved with no sign of infection.Vascular status intact . Neuro intact . no gross ortho changes . Bone biopsy was neg after debridement . Assessment and Plan - Assessment and Plan (Free Text) Assessment: A/Venous Stasis Ulcer right ankle Plan: P/apply xeroform gauze dressing right daily.with dsd.
--- NOTE | 2016-09-29 16:07 | CP.PCM.PN ---
Subjective - Date & Time of Evaluation Date of Evaluation: 09/29/16 Time of Evaluation: 14:00 - Subjective Subjective: No complaints. Objective - Vital Signs/Intake and Output Vital Signs (last 24 hours): Temp Pulse Resp BP Pulse Ox 97.5 F L 70 20 155/85 H 98 09/29/16 08:10 09/29/16 08:10 09/29/16 08:10 09/29/16 08:10 09/29/16 08:10 Intake and Output: 09/29/16 09/29/16 06:59 18:59 Intake Total 840 580 Output Total 400 400 Balance 440 180 - Medications Medications: Current Medications Aspirin (Aspirin) 325 mg PO DAILY [facility] Last Admin: 09/29/16 10:09 Dose: 325 mg Folic Acid (Folic Acid) 1 mg PO DAILY [facility] Last Admin: 09/29/16 10:09 Dose: 1 mg Ceftriaxone Sodium 1 gm/ (Sodium Chloride) 100 mls @ 200 mls/hr IVPB Q12H [facility] Last Admin: 09/29/16 10:08 Dose: 200 mls/hr Insulin Glargine (Lantus) 10 unit SC [facility] Last Admin: 09/28/16 21:47 Dose: 10 units Insulin Human Regular (Novolin R) 0 unit SC ACHS [facility] PRN Reason: Protocol Last Admin: 09/29/16 12:16 Dose: 1 unit Isosorbide Mononitrate (Imdur) 30 mg PO DAILY [facility] Last Admin: 09/29/16 10:08 Dose: 30 mg Lactic Acid (Lac-Hydrin 12% Lotion (225 G)) 0 gm EXT BID [facility] Last Admin: 09/29/16 10:09 Dose: 1 applic Magnesium Hydroxide (Milk Of Magnesia) 30 ml PO Q72 PRN PRN Reason: Constipation Metoprolol Succinate (Toprol Xl) 12.5 mg PO DAILY [facility] Last Admin: 09/29/16 10:10 Dose: 12.5 mg Pantoprazole Sodium (Protonix Ec Tab) 40 mg PO DAILY [facility] Last Admin: 09/29/16 10:08 Dose: 40 mg Ranolazine (Ranexa) 500 mg PO BID [facility] Last Admin: 09/29/16 10:09 Dose: 500 mg Rosuvastatin Calcium (Crestor) 20 mg PO [facility] Last Admin: 09/28/16 21:40 Dose: 20 mg Thiamine HCl (Vitamin B1 Tab) 100 mg PO DAILY [facility] Last Admin: 09/29/16 10:09 Dose: 100 mg - Labs Labs: 09/29/16 07:20 09/29/16 07:20 PT 13.8 SECONDS (9.7-12.2) H 09/16/16 20:54 INR 1.2 09/16/16 20:54 APTT 34 SECONDS (21-34) 09/16/16 20:54 - Head Exam Head Exam: ATRAUMATIC - Eye Exam Eye Exam: Normal appearance - ENT Exam ENT Exam: Mucous Membranes Dry - Respiratory Exam Respiratory Exam: NORMAL BREATHING PATTERN - Cardiovascular Exam Cardiovascular Exam: +S1, +S2 - GI/Abdominal Exam GI & Abdominal Exam: Normal Bowel Sounds - Extremities Exam Additional comments: foot dressing Assessment and Plan (1) Pancytopenia Assessment & Plan: with severe neutropenia bone marrow biopsy done; awaiting results Status: Acute
[2016-09-29] MEDS: (Lantus) Insulin Glargine, Recombinant SC SCH (22:30)
[2016-09-30 07:53] LABS: EOS # 0.1 K/uL (0.0-0.7); LYMPH # 0.9 K/uL (1.0-4.3); MONO # 0.4 K/uL (0.0-0.8)
[2016-09-30 08:05] LABS: BASO % 0.4 % (0.0-2.0); EOS % 4.9 % (0.0-4.0); HEMATOCRIT 24.3 % (35.0-51.0); LYMPH % 55.7 % (20.0-40.0); MEAN CELL VOLUME 79.5 fL (80.0-94.0); MEAN CORPUSCULAR HGB CONC 32.8 g/dL (33.0-37.0); MEAN PLATELET VOLUME 9.4 fL (7.2-11.7); MONO % 23.7 % (0.0-10.0); NRBC % 0.6 % (0.0-2.0); PLATELET COUNT 84 K/uL (130-400); RED CELL DISTRIBUTION WIDTH 21.7 % (11.5-14.5)
[2016-09-30 08:15] LABS: CHLORIDE 105 mmol/L (98-107); SODIUM 141 mmol/L (132-148)
[2016-09-30 08:16] LABS: POTASSIUM 4.1 mmol/L (3.6-5.2); WHITE BLOOD COUNT 1.5 K/uL (4.8-10.8)
[2016-09-30 08:18] LABS: ALB/GLOB RATIO 0.9 (1.0-2.1); ALKALINE PHOSPHATASE 86 U/L (38-126); AST/SGOT 18 U/L (17-59); BILIRUBIN,TOTAL 0.5 mg/dL (0.2-1.3); BLOOD UREA NITROGEN 19 mg/dL (9-20); CARBON DIOXIDE 25 mmol/L (22-30); GFR AFRICAN-AMERICAN > 60; GLUCOSE,RANDOM 140 mg/dL (75-110); TOTAL PROTEIN 7.2 g/dL (6.3-8.3)
[2016-09-30 08:19] LABS: ALT/SGPT 15 U/L (21-72); CALCIUM 8.4 mg/dl (8.6-10.4)
[2016-09-30] MEDS: (Novolin R) Insulin Human Regular 100 units/ml vial SC SCH ×4 (08:21→22:37)
[2016-09-30] MEDS: Ranolazine 500 mg Extended Release Tablets PO SCH ×2 (09:26→17:31)
[2016-09-30] MEDS: Pantoprazole 40 mg EC Tab PO SCH (09:26)
[2016-09-30] MEDS: Metoprolol Succinate 12.5 mg XL PO SCH (09:27)
[2016-09-30 09:30] LABS: EOSINOPHIL 6 % (0-4); NEUTROPHIL 14 % (50-75); TOTAL CELLS COUNTED 50
[2016-09-30 09:31] LABS: LARGE PLATELETS PRESENT
[2016-09-30] MEDS: Ammonium Lactate 12% Lotion (225 g) EXT SCH ×2 (10:00→17:33)
--- NOTE | 2016-09-30 10:34 | CP.PCM.PN ---
Subjective - Date & Time of Evaluation Date of Evaluation: 09/30/16 Time of Evaluation: 10:33 - Subjective Subjective: 71 y/o male was seen and evaluated at bedside today for f/u on RLE ulceration. Patient was resting comfortably in bed, in NAD. He denies any pain in his RLE. Denies any F/C/N/V/SOB/CP. States he is feeling well today ; RLE dressing appears to be C/D/I. Objective - Vital Signs/Intake and Output Vital Signs (last 24 hours): Temp Pulse Resp BP Pulse Ox 98.1 F 73 20 158/70 H 98 09/30/16 08:25 09/30/16 08:25 09/30/16 08:25 09/30/16 08:25 09/30/16 08:25 Intake and Output: 09/30/16 09/30/16 06:59 18:59 Intake Total 400 240 Balance 400 240 - Medications Medications: Current Medications Aspirin (Aspirin) 325 mg PO DAILY [facility] Last Admin: 09/30/16 09:25 Dose: 325 mg Folic Acid (Folic Acid) 1 mg PO DAILY [facility] Last Admin: 09/30/16 09:26 Dose: 1 mg Ceftriaxone Sodium 1 gm/ (Sodium Chloride) 100 mls @ 200 mls/hr IVPB Q12H [facility] Last Admin: 09/29/16 22:29 Dose: 200 mls/hr Insulin Glargine (Lantus) 10 unit SC HS [facility] Last Admin: 09/29/16 22:30 Dose: 10 units Insulin Human Regular (Novolin R) 0 unit SC ACHS [facility] PRN Reason: Protocol Last Admin: 09/30/16 08:21 Dose: 1 unit Isosorbide Mononitrate (Imdur) 30 mg PO DAILY [facility] Last Admin: 09/30/16 09:26 Dose: 30 mg Lactic Acid (Lac-Hydrin 12% Lotion (225 G)) 0 gm EXT BID [facility] Last Admin: 09/29/16 17:28 Dose: 1 applic Magnesium Hydroxide (Milk Of Magnesia) 30 ml PO Q72 PRN PRN Reason: Constipation Metoprolol Succinate (Toprol Xl) 12.5 mg PO DAILY [facility] Last Admin: 09/30/16 09:27 Dose: 12.5 mg Pantoprazole Sodium (Protonix Ec Tab) 40 mg PO DAILY [facility] Last Admin: 09/30/16 09:26 Dose: 40 mg Ranolazine (Ranexa) 500 mg PO BID [facility] Last Admin: 09/30/16 09:26 Dose: 500 mg Rosuvastatin Calcium (Crestor) 20 mg PO HS [facility] Last Admin: 09/29/16 22:29 Dose: 20 mg Thiamine HCl (Vitamin B1 Tab) 100 mg PO DAILY [facility] Last Admin: 09/30/16 09:27 Dose: 100 mg - Labs Labs: 09/30/16 07:45 09/30/16 07:45 PT 13.8 SECONDS (9.7-12.2) H 09/16/16 20:54 INR 1.2 09/16/16 20:54 APTT 34 SECONDS (21-34) 09/16/16 20:54 - Constitutional Appears: Well, Non-toxic, No Acute Distress - Neurological Exam Neurological Exam: Alert, Awake, Oriented x3 - Psychiatric Exam Psychiatric exam: Normal Affect, Normal Mood - Skin Skin Exam: Normal Color, Warm - Additional Findings Additional findings: RLE exam: DERMATOLOGIC: Right lower extremity anteromedial leg ulceration, does not probe deep, granular base, mild serous drainage, no purulence, no undermining, no erythema or tracking present. The surrounding skin is intact. There is xerosis noted bilaterally. VASCULAR: DP/PT pulses 2/4, CORRUGATOR OPERATOR HELPER<3 seconds, skin temperature is normal NEUROLOGIC: Gross sensation intact, motor function intact ORTHOPEDIC: Mild pain on palpation to the wound site Assessment and Plan - Assessment and Plan (Free Text) Assessment: 71 y/o M with chronic Right ankle/lower leg stasis ulceration Plan: Patient seen and evaluated at bedside Discussed in detail with Dr. Ramirez Labs and vitals reviewed RLE dressing left CDI today If patient is d/c at the rehab to continue with daily dressing changes of DSD wit underlying xeroform and application of ammonium lactate cream to dry skin areas. Ammonium lactate applied w/o complication Trending WBC and possible transfer to [facility] if patient comes off of isolation Will continue to follow while admitted.
--- NOTE | 2016-09-30 14:47 | CP.PCM.PN ---
Subjective - Date & Time of Evaluation Date of Evaluation: 09/30/16 Time of Evaluation: 07:00 - Subjective Subjective: clinically same Objective - Vital Signs/Intake and Output Vital Signs (last 24 hours): Temp Pulse Resp BP Pulse Ox 98.1 F 73 20 158/70 H 98 09/30/16 08:25 09/30/16 08:25 09/30/16 08:25 09/30/16 08:25 09/30/16 08:25 Intake and Output: 09/30/16 09/30/16 06:59 18:59 Intake Total 400 240 Balance 400 240 - Medications Medications: Current Medications Aspirin (Aspirin) 325 mg PO DAILY [facility] Last Admin: 09/30/16 09:25 Dose: 325 mg Folic Acid (Folic Acid) 1 mg PO DAILY [facility] Last Admin: 09/30/16 09:26 Dose: 1 mg Ceftriaxone Sodium 1 gm/ (Sodium Chloride) 100 mls @ 200 mls/hr IVPB Q12H [facility] Last Admin: 09/30/16 11:00 Dose: 200 mls/hr Insulin Glargine (Lantus) 10 unit SC [facility] Last Admin: 09/29/16 22:30 Dose: 10 units Insulin Human Regular (Novolin R) 0 unit SC ACHS [facility] PRN Reason: Protocol Last Admin: 09/30/16 12:24 Dose: 2 unit Isosorbide Mononitrate (Imdur) 30 mg PO DAILY [facility] Last Admin: 09/30/16 09:26 Dose: 30 mg Lactic Acid (Lac-Hydrin 12% Lotion (225 G)) 0 gm EXT BID [facility] Last Admin: 09/30/16 10:00 Dose: 1 applic Magnesium Hydroxide (Milk Of Magnesia) 30 ml PO Q72 PRN PRN Reason: Constipation Metoprolol Succinate (Toprol Xl) 12.5 mg PO DAILY [facility] Last Admin: 09/30/16 09:27 Dose: 12.5 mg Pantoprazole Sodium (Protonix Ec Tab) 40 mg PO DAILY [facility] Last Admin: 09/30/16 09:26 Dose: 40 mg Ranolazine (Ranexa) 500 mg PO BID [facility] Last Admin: 09/30/16 09:26 Dose: 500 mg Rosuvastatin Calcium (Crestor) 20 mg PO HS [facility] Last Admin: 09/29/16 22:29 Dose: 20 mg Thiamine HCl (Vitamin B1 Tab) 100 mg PO DAILY [facility] Last Admin: 09/30/16 09:27 Dose: 100 mg - Labs Labs: 09/30/16 07:45 09/30/16 07:45 PT 13.8 SECONDS (9.7-12.2) H 09/16/16 20:54 INR 1.2 09/16/16 20:54 APTT 34 SECONDS (21-34) 09/16/16 20:54 - Constitutional Appears: Well - Head Exam Head Exam: ATRAUMATIC, NORMAL INSPECTION, NORMOCEPHALIC - Eye Exam Eye Exam: EOMI, Normal appearance, PERRL Pupil Exam: NORMAL ACCOMODATION, PERRL - ENT Exam ENT Exam: Mucous Membranes Moist, Normal Exam - Neck Exam Neck Exam: Full ROM, Normal Inspection. 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 segura followupwith consutlation s
[2016-09-30] MEDS: (Lantus) Insulin Glargine, Recombinant SC SCH (22:22)
[2016-10-01 06:16] LABS: BASO % 0.8 % (0.0-2.0); EOS # 0.1 K/uL (0.0-0.7); EOS % 5.4 % (0.0-4.0); HEMATOCRIT 24.2 % (35.0-51.0); LYMPH % 58.9 % (20.0-40.0); MEAN CELL VOLUME 78.8 fL (80.0-94.0); MEAN CORPUSCULAR HEMOGLOBIN 26.5 pg (27.0-31.0); MEAN CORPUSCULAR HGB CONC 33.6 g/dL (33.0-37.0); MEAN PLATELET VOLUME 9.3 fL (7.2-11.7); MONO # 0.4 K/uL (0.0-0.8); NRBC % 0.2 % (0.0-2.0); PLATELET COUNT 87 K/uL (130-400); RED CELL DISTRIBUTION WIDTH 21.1 % (11.5-14.5)
[2016-10-01 06:20] LABS: WHITE BLOOD COUNT 1.7 K/uL (4.8-10.8)
[2016-10-01 06:26] LABS: CHLORIDE 103 mmol/L (98-107); POTASSIUM 4.2 mmol/L (3.6-5.2); SODIUM 139 mmol/L (132-148)
[2016-10-01 06:28] LABS: AST/SGOT 26 U/L (17-59); BILIRUBIN,TOTAL 0.7 mg/dL (0.2-1.3); CARBON DIOXIDE 27 mmol/L (22-30); GFR AFRICAN-AMERICAN > 60
[2016-10-01 06:29] LABS: ALB/GLOB RATIO 0.9 (1.0-2.1); ALKALINE PHOSPHATASE 88 U/L (38-126); ALT/SGPT 17 U/L (21-72); BLOOD UREA NITROGEN 21 mg/dL (9-20); CALCIUM 8.7 mg/dl (8.6-10.4); GLUCOSE,RANDOM 132 mg/dL (75-110); TOTAL PROTEIN 7.1 g/dL (6.3-8.3)
[2016-10-01 08:16] LABS: EOSINOPHIL 5 % (0-4); NEUTROPHIL 19 % (50-75); TOTAL CELLS COUNTED 100
[2016-10-01] MEDS: (Novolin R) Insulin Human Regular 100 units/ml vial SC SCH ×4 (08:37→21:30)
[2016-10-01] MEDS: Pantoprazole 40 mg EC Tab PO SCH (10:59)
[2016-10-01] MEDS: Metoprolol Succinate 12.5 mg XL PO SCH (11:00)
[2016-10-01] MEDS: Ranolazine 500 mg Extended Release Tablets PO SCH ×2 (11:00→17:54)
[2016-10-01] MEDS: Ammonium Lactate 12% Lotion (225 g) EXT SCH ×2 (11:06→18:28)
--- NOTE | 2016-10-01 12:09 | CP.PCM.PN ---
Subjective - Date & Time of Evaluation Date of Evaluation: 10/01/16 Time of Evaluation: 08:50 - Subjective Subjective: Medicine Note- Dr. Ramírez's service Patient was seen and examined at bedside. Patient reports no acute complaints today. No events overnight, per nursing. Objective - Vital Signs/Intake and Output Vital Signs (last 24 hours): Temp Pulse Resp BP Pulse Ox 97.4 F L 69 20 147/64 97 10/01/16 08:18 10/01/16 08:18 10/01/16 08:18 10/01/16 08:18 10/01/16 08:18 Intake and Output: 10/01/16 10/01/16 06:59 18:59 Intake Total 220 Balance 220 - Medications Medications: Current Medications Aspirin (Aspirin) 325 mg PO DAILY [facility] Last Admin: 10/01/16 11:00 Dose: 325 mg Folic Acid (Folic Acid) 1 mg PO DAILY [facility] Last Admin: 10/01/16 10:59 Dose: 1 mg Ceftriaxone Sodium 1 gm/ (Sodium Chloride) 100 mls @ 200 mls/hr IVPB Q12H [facility] Last Admin: 10/01/16 11:05 Dose: 200 mls/hr Insulin Glargine (Lantus) 10 unit SC HS [facility] Last Admin: 09/30/16 22:22 Dose: 10 units Insulin Human Regular (Novolin R) 0 unit SC ACHS [facility] PRN Reason: Protocol Last Admin: 10/01/16 08:37 Dose: Not Given Isosorbide Mononitrate (Imdur) 30 mg PO DAILY [facility] Last Admin: 10/01/16 10:59 Dose: 30 mg Lactic Acid (Lac-Hydrin 12% Lotion (225 G)) 0 gm EXT BID [facility] Last Admin: 10/01/16 11:06 Dose: 1 applic Magnesium Hydroxide (Milk Of Magnesia) 30 ml PO Q72 PRN PRN Reason: Constipation Metoprolol Succinate (Toprol Xl) 12.5 mg PO DAILY [facility] Last Admin: 10/01/16 11:00 Dose: 12.5 mg Pantoprazole Sodium (Protonix Ec Tab) 40 mg PO DAILY [facility] Last Admin: 10/01/16 10:59 Dose: 40 mg Ranolazine (Ranexa) 500 mg PO BID [facility] Last Admin: 10/01/16 11:00 Dose: 500 mg Rosuvastatin Calcium (Crestor) 20 mg PO HS [facility] Last Admin: 09/30/16 22:21 Dose: 20 mg Thiamine HCl (Vitamin B1 Tab) 100 mg PO DAILY [facility] Last Admin: 10/01/16 10:59 Dose: 100 mg - Labs Labs: 10/01/16 06:01 10/01/16 06:01 PT 13.8 SECONDS (9.7-12.2) H 09/16/16 20:54 INR 1.2 09/16/16 20:54 APTT 34 SECONDS (21-34) 09/16/16 20:54 - Constitutional Appears: Non-toxic, No Acute Distress - Head Exam Head Exam: ATRAUMATIC, NORMAL INSPECTION, NORMOCEPHALIC - Eye Exam Pupil Exam: NORMAL ACCOMODATION, PERRL - ENT Exam ENT Exam: Mucous Membranes Moist - Respiratory Exam Respiratory Exam: Clear to Ausculation Bilateral, NORMAL BREATHING PATTERN. absent: Prolonged Expiratory Phase, Rales, Rhonchi, Wheezes - Cardiovascular Exam Cardiovascular Exam: REGULAR RHYTHM, +S1, +S2 - GI/Abdominal Exam GI & Abdominal Exam: Soft, Normal Bowel Sounds. absent: Tenderness, Diminished Bowel Sounds, Hypoactive Bowel Sounds - Extremities Exam Extremities Exam: Normal Capillary Refill, Normal Inspection - Neurological Exam Neurological Exam: Alert, Awake, Oriented x3 - Psychiatric Exam Psychiatric exam: Normal Affect, Normal Mood - Skin Skin Exam: Dry, Intact, Normal Color, Warm Assessment and Plan - Assessment and Plan (Free Text) Assessment: Hemoptysis Resolved. No more episodes in hospital. 40ml red blood reported at shelter per ED note. Dr. Ross and Dario consulted, help appreciated. CXR showed RUL infiltrate. Procalcitonin level low. Rocephin 1gm IVPB Q12h started 09/17, patient needs to have either 2g daily or 1g q12H until 10/08, per Dr. Bishop. CT angio showed RUL pneumonia (see full report). Quantiferon gold test negative. AFB stain negative. Pancytopenia Chronic. Standard neutropenic precautions. Heme/onc dr. Nguyen consulted. Consulted Hemeonc- Dr. Miguel Knutson IV Ferrlicit. s/p Bone marrow biopsy with Dr. Knutson - awaiting results Right foot infection Podiatry Dr. Ramirez consulted, help appreciated. Left arm swelling Venous doppler showed left arm cephalic vein thrombosis. Vascular Dr. Lugo consulted, help appreciated. Symptomatic treatment for now. DM Lantus 10U SC HS [facility], accucheck. Prophylactic measure Protonix PO. SCD and HepSQ contraindicated. Management per Dr. Ramírez. DC Planning- case management currently trying to find MARTHA in the patient's insurance network
--- NOTE | 2016-10-01 17:58 | CP.PCM.PN ---
Subjective - Date & Time of Evaluation Date of Evaluation: 10/01/16 Time of Evaluation: 07:00 - Subjective Subjective: clinically same Objective - Vital Signs/Intake and Output Vital Signs (last 24 hours): Temp Pulse Resp BP Pulse Ox 97.4 F L 69 20 147/64 97 10/01/16 08:18 10/01/16 08:18 10/01/16 08:18 10/01/16 08:18 10/01/16 08:18 Intake and Output: 10/01/16 10/01/16 06:59 18:59 Intake Total 220 500 Balance 220 500 - Medications Medications: Current Medications Aspirin (Aspirin) 325 mg PO DAILY [facility] Last Admin: 10/01/16 11:00 Dose: 325 mg Folic Acid (Folic Acid) 1 mg PO DAILY [facility] Last Admin: 10/01/16 10:59 Dose: 1 mg Ceftriaxone Sodium 1 gm/ (Sodium Chloride) 100 mls @ 200 mls/hr IVPB Q12H [facility] Last Admin: 10/01/16 11:05 Dose: 200 mls/hr Insulin Glargine (Lantus) 10 unit SC [facility] Last Admin: 09/30/16 22:22 Dose: 10 units Insulin Human Regular (Novolin R) 0 unit SC ACHS [facility] PRN Reason: Protocol Last Admin: 10/01/16 17:55 Dose: 1 unit Isosorbide Mononitrate (Imdur) 30 mg PO DAILY [facility] Last Admin: 10/01/16 10:59 Dose: 30 mg Lactic Acid (Lac-Hydrin 12% Lotion (225 G)) 0 gm EXT BID [facility] Last Admin: 10/01/16 11:06 Dose: 1 applic Magnesium Hydroxide (Milk Of Magnesia) 30 ml PO Q72 PRN PRN Reason: Constipation Metoprolol Succinate (Toprol Xl) 12.5 mg PO DAILY [facility] Last Admin: 10/01/16 11:00 Dose: 12.5 mg Pantoprazole Sodium (Protonix Ec Tab) 40 mg PO DAILY [facility] Last Admin: 10/01/16 10:59 Dose: 40 mg Ranolazine (Ranexa) 500 mg PO BID [facility] Last Admin: 10/01/16 17:54 Dose: 500 mg Rosuvastatin Calcium (Crestor) 20 mg PO HS [facility] Last Admin: 09/30/16 22:21 Dose: 20 mg Thiamine HCl (Vitamin B1 Tab) 100 mg PO DAILY [facility] Last Admin: 10/01/16 10:59 Dose: 100 mg - Labs Labs: 10/01/16 06:01 10/01/16 06:01 PT 13.8 SECONDS (9.7-12.2) H 09/16/16 20:54 INR 1.2 09/16/16 20:54 APTT 34 SECONDS (21-34) 09/16/16 20:54 - Constitutional Appears: Well - Head Exam Head Exam: ATRAUMATIC, NORMAL INSPECTION, NORMOCEPHALIC - Eye Exam Eye Exam: EOMI, Normal appearance, PERRL Pupil Exam: NORMAL ACCOMODATION, PERRL - ENT Exam ENT Exam: Mucous Membranes Moist, Normal Exam - Neck Exam Neck Exam: Full ROM, Normal Inspection. 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
--- NOTE | 2016-10-01 19:39 | CP.PCM.PN ---
Subjective - Date & Time of Evaluation Date of Evaluation: 10/01/16 Time of Evaluation: 12:00 - Subjective Subjective: Patient was seen and evaluated at bedside this afternoon. Patient was resting comfortably, in NAD. RLE dressing appears to be C/D/I. No pedal complaints reported at this time. Denies any F/C/N/V/SOB. Objective - Vital Signs/Intake and Output Vital Signs (last 24 hours): Temp Pulse Resp BP Pulse Ox 97.4 F L 69 20 147/64 97 10/01/16 08:18 10/01/16 08:18 10/01/16 08:18 10/01/16 08:18 10/01/16 08:18 Intake and Output: 10/01/16 10/02/16 18:59 06:59 Intake Total 500 Balance 500 - Medications Medications: Current Medications Aspirin (Aspirin) 325 mg PO DAILY [facility] Last Admin: 10/01/16 11:00 Dose: 325 mg Folic Acid (Folic Acid) 1 mg PO DAILY [facility] Last Admin: 10/01/16 10:59 Dose: 1 mg Ceftriaxone Sodium 1 gm/ (Sodium Chloride) 100 mls @ 200 mls/hr IVPB Q12H [facility] Last Admin: 10/01/16 11:05 Dose: 200 mls/hr Insulin Glargine (Lantus) 10 unit SC HS [facility] Last Admin: 09/30/16 22:22 Dose: 10 units Insulin Human Regular (Novolin R) 0 unit SC ACHS [facility] PRN Reason: Protocol Last Admin: 10/01/16 17:55 Dose: 1 unit Isosorbide Mononitrate (Imdur) 30 mg PO DAILY [facility] Last Admin: 10/01/16 10:59 Dose: 30 mg Lactic Acid (Lac-Hydrin 12% Lotion (225 G)) 0 gm EXT BID [facility] Last Admin: 10/01/16 11:06 Dose: 1 applic Magnesium Hydroxide (Milk Of Magnesia) 30 ml PO Q72 PRN PRN Reason: Constipation Metoprolol Succinate (Toprol Xl) 12.5 mg PO DAILY [facility] Last Admin: 10/01/16 11:00 Dose: 12.5 mg Pantoprazole Sodium (Protonix Ec Tab) 40 mg PO DAILY [facility] Last Admin: 10/01/16 10:59 Dose: 40 mg Ranolazine (Ranexa) 500 mg PO BID [facility] Last Admin: 05/22/17 17:54 Dose: 500 mg Rosuvastatin Calcium (Crestor) 20 mg PO HS [facility] Last Admin: 09/30/16 22:21 Dose: 20 mg Thiamine HCl (Vitamin B1 Tab) 100 mg PO DAILY [facility] Last Admin: 10/01/16 10:59 Dose: 100 mg - Labs Labs: 10/01/16 06:01 10/01/16 06:01 PT 13.8 SECONDS (9.7-12.2) H 09/16/16 20:54 INR 1.2 09/16/16 20:54 APTT 34 SECONDS (21-34) 09/16/16 20:54 - Constitutional Appears: Non-toxic, No Acute Distress - Neurological Exam Neurological Exam: Alert, Awake, Oriented x3 - Psychiatric Exam Psychiatric exam: Normal Affect, Normal Mood - Skin Skin Exam: Dry, Normal Color, Warm - Additional Findings Additional findings: RLE exam: DERMATOLOGIC: Right lower extremity anteromedial leg ulceration, does not probe deep, granular base, mild serous drainage, no purulence, no undermining, no erythema or tracking present. The surrounding skin is intact. There is xerosis noted bilaterally. VASCULAR: DP/PT pulses 2/4, TREE TOPPER<3 seconds, skin temperature is normal NEUROLOGIC: Gross sensation intact, motor function intact ORTHOPEDIC: Mild pain on palpation to the wound site Assessment and Plan - Assessment and Plan (Free Text) Assessment: 71 y/o M with chronic Right ankle/lower leg stasis ulceration Plan: Patient seen and evaluated at bedside Discussed in detail with Dr. Ramirez Labs and vitals reviewed RLE dressing changed with Xeroform, DSD Once patient is d/c at the rehab, he is to continue with daily dressing changes of DSD with underlying xeroform and application of ammonium lactate cream to dry skin areas. As per social work, possible transfer to [facility] if patient comes off of isolation Podiatry to follow while patient remains in house
[2016-10-01] MEDS: (Lantus) Insulin Glargine, Recombinant SC SCH (21:29)
[2016-10-02] MEDS: (Novolin R) Insulin Human Regular 100 units/ml vial SC SCH ×4 (08:00→21:47)
--- NOTE | 2016-10-02 09:50 | CP.PCM.PN ---
Subjective - Date & Time of Evaluation Date of Evaluation: 10/02/16 Time of Evaluation: 09:40 - Subjective Subjective: Patient was seen and evaluated at bedside this morning with attending, Dr. Ramirez. Patient states that he is awaiting transfer to rehab pending bed availability. He denies any pedal complaints at this time. Denies any F/C/N/V. RLE dressing appears to be C/D/I. Objective - Vital Signs/Intake and Output Vital Signs (last 24 hours): Temp Pulse Resp BP Pulse Ox 98.5 F 69 20 123/70 96 10/02/16 07:44 10/02/16 07:44 10/02/16 07:44 10/02/16 07:44 10/02/16 07:44 Intake and Output: 10/02/16 10/02/16 06:59 18:59 Intake Total 250 240 Balance 250 240 - Medications Medications: Current Medications Aspirin (Aspirin) 325 mg PO DAILY [facility] Last Admin: 10/01/16 11:00 Dose: 325 mg Folic Acid (Folic Acid) 1 mg PO DAILY [facility] Last Admin: 10/01/16 10:59 Dose: 1 mg Ceftriaxone Sodium 1 gm/ (Sodium Chloride) 100 mls @ 200 mls/hr IVPB Q12H [facility] Last Admin: 10/01/16 21:28 Dose: 200 mls/hr Insulin Glargine (Lantus) 10 unit SC HS [facility] Last Admin: 10/01/16 21:29 Dose: 10 units Insulin Human Regular (Novolin R) 0 unit SC ACHS [facility] PRN Reason: Protocol Last Admin: 10/02/16 08:00 Dose: Not Given Isosorbide Mononitrate (Imdur) 30 mg PO DAILY [facility] Last Admin: 10/01/16 10:59 Dose: 30 mg Lactic Acid (Lac-Hydrin 12% Lotion (225 G)) 0 gm EXT BID [facility] Last Admin: 10/01/16 18:28 Dose: 1 applic Metoprolol Succinate (Toprol Xl) 12.5 mg PO DAILY [facility] Last Admin: 10/01/16 11:00 Dose: 12.5 mg Pantoprazole Sodium (Protonix Ec Tab) 40 mg PO DAILY [facility] Last Admin: 10/01/16 10:59 Dose: 40 mg Ranolazine (Ranexa) 500 mg PO BID [facility] Last Admin: 10/01/16 17:54 Dose: 500 mg Rosuvastatin Calcium (Crestor) 20 mg PO HS [facility] Last Admin: 10/01/16 21:29 Dose: 20 mg Thiamine HCl (Vitamin B1 Tab) 100 mg PO DAILY [facility] Last Admin: 10/01/16 10:59 Dose: 100 mg - Labs Labs: 10/01/16 06:01 10/01/16 06:01 PT 13.8 SECONDS (9.7-12.2) H 09/16/16 20:54 INR 1.2 09/16/16 20:54 APTT 34 SECONDS (21-34) 09/16/16 20:54 - Constitutional Appears: Non-toxic, No Acute Distress - Neurological Exam Neurological Exam: Alert, Awake, Oriented x3 - Psychiatric Exam Psychiatric exam: Normal Affect, Normal Mood - Skin Skin Exam: Dry, Warm - Additional Findings Additional findings: RLE exam: DERMATOLOGIC: Right lower extremity anteromedial leg ulceration, does not probe deep, granular base, mild serous drainage, no purulence, no undermining, no erythema or tracking present. The surrounding skin is intact. There is xerosis noted bilaterally. VASCULAR: DP/PT pulses 2/4, MAINTENANCE ELECTRICIAN<3 seconds, skin temperature is normal NEUROLOGIC: Gross sensation intact, motor function intact ORTHOPEDIC: Mild pain on palpation to the wound site Assessment and Plan - Assessment and Plan (Free Text) Assessment: 71 y/o M with chronic Right ankle/lower leg stasis ulceration, stable. Plan: Patient seen and evaluated at bedside with attending, Dr. Ramirez Labs and vitals reviewed RLE dressing changed with Xeroform, DSD Once patient is d/c at the rehab, he is to continue with daily dressing changes of DSD with underlying xeroform and application of ammonium lactate cream to dry skin areas. Awaiting transfer to rehab, pending bed availability Podiatry to follow while patient remains in house
[2016-10-02] MEDS: Pantoprazole 40 mg EC Tab PO SCH (09:55)
[2016-10-02] MEDS: Metoprolol Succinate 12.5 mg XL PO SCH (09:56)
[2016-10-02] MEDS: Ranolazine 500 mg Extended Release Tablets PO SCH (09:56)
[2016-10-02] MEDS: Ammonium Lactate 12% Lotion (225 g) EXT SCH ×2 (09:57→18:47)
--- NOTE | 2016-10-02 10:17 | CP.PCM.PN ---
Subjective - Date & Time of Evaluation Date of Evaluation: 10/02/16 Time of Evaluation: 07:00 - Subjective Subjective: clinically same Objective - Vital Signs/Intake and Output Vital Signs (last 24 hours): Temp Pulse Resp BP Pulse Ox 98.5 F 69 20 123/70 96 10/02/16 07:44 10/02/16 07:44 10/02/16 07:44 10/02/16 07:44 10/02/16 07:44 Intake and Output: 10/02/16 10/02/16 06:59 18:59 Intake Total 250 240 Balance 250 240 - Medications Medications: Current Medications Ceftriaxone Sodium 1 gm/ (Sodium Chloride) 100 mls @ 200 mls/hr IVPB Q12H [facility] Last Admin: 10/02/16 09:54 Dose: 200 mls/hr Insulin Glargine (Lantus) 10 unit SC [facility] Last Admin: 10/01/16 21:29 Dose: 10 units Insulin Human Regular (Novolin R) 0 unit SC [facility] PRN Reason: Protocol Last Admin: 10/02/16 08:00 Dose: Not Given Lactic Acid (Lac-Hydrin 12% Lotion (225 G)) 0 gm EXT BID [facility] Last Admin: 10/02/16 09:57 Dose: 1 applic Metoprolol Succinate (Toprol Xl) 12.5 mg PO DAILY [facility] Last Admin: 10/02/16 09:56 Dose: 12.5 mg Pantoprazole Sodium (Protonix Ec Tab) 40 mg PO DAILY [facility] Last Admin: 10/02/16 09:55 Dose: 40 mg Rosuvastatin Calcium (Crestor) 20 mg PO [facility] Last Admin: 10/01/16 21:29 Dose: 20 mg - Labs Labs: 10/01/16 06:01 10/01/16 06:01 PT 13.8 SECONDS (9.7-12.2) H 09/16/16 20:54 INR 1.2 09/16/16 20:54 APTT 34 SECONDS (21-34) 09/16/16 20:54 - Constitutional Appears: Well - Head Exam Head Exam: ATRAUMATIC, NORMAL INSPECTION, NORMOCEPHALIC - Eye Exam Eye Exam: EOMI, Normal appearance, PERRL Pupil Exam: NORMAL ACCOMODATION, PERRL - ENT Exam ENT Exam: Mucous Membranes Moist, Normal Exam - Neck Exam Neck Exam: Full ROM, Normal Inspection. 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
--- NOTE | 2016-10-02 14:09 | CP.PCM.PN ---
<Ron Gallagher - Last Filed: 10/02/16 14:08> Subjective - Date & Time of Evaluation Date of Evaluation: 10/02/16 Time of Evaluation: 13:00 - Subjective Subjective: Medicine note- Dr. Ramírez's service Patient was seen and examined at bedside. Patient reports no acute complaints at this time. No events overnight, per nursing. Objective - Vital Signs/Intake and Output Vital Signs (last 24 hours): Temp Pulse Resp BP Pulse Ox 98.5 F 69 20 123/70 96 10/02/16 07:44 10/02/16 07:44 10/02/16 07:44 10/02/16 07:44 10/02/16 07:44 Intake and Output: 10/02/16 10/02/16 06:59 18:59 Intake Total 250 240 Balance 250 240 - Medications Medications: Current Medications Ceftriaxone Sodium 1 gm/ (Sodium Chloride) 100 mls @ 200 mls/hr IVPB Q12H [facility] Last Admin: 10/02/16 09:54 Dose: 200 mls/hr Insulin Glargine (Lantus) 10 unit SC [facility] Last Admin: 10/01/16 21:29 Dose: 10 units Insulin Human Regular (Novolin R) 0 unit SC ACHS [facility] PRN Reason: Protocol Last Admin: 10/02/16 12:00 Dose: 4 unit Lactic Acid (Lac-Hydrin 12% Lotion (225 G)) 0 gm EXT BID [facility] Last Admin: 10/02/16 09:57 Dose: 1 applic Pantoprazole Sodium (Protonix Ec Tab) 40 mg PO DAILY [facility] Last Admin: 10/02/16 09:55 Dose: 40 mg Rosuvastatin Calcium (Crestor) 20 mg PO [facility] Last Admin: 10/01/16 21:29 Dose: 20 mg - Labs Labs: 10/01/16 06:01 10/01/16 06:01 PT 13.8 SECONDS (9.7-12.2) H 09/16/16 20:54 INR 1.2 09/16/16 20:54 APTT 34 SECONDS (21-34) 09/16/16 20:54 - Constitutional Appears: Non-toxic, No Acute Distress, Cachectic - Head Exam Head Exam: ATRAUMATIC, NORMAL INSPECTION, NORMOCEPHALIC - Eye Exam Pupil Exam: NORMAL ACCOMODATION, PERRL - ENT Exam ENT Exam: Mucous Membranes Moist - Respiratory Exam Respiratory Exam: Clear to Ausculation Bilateral, NORMAL BREATHING PATTERN. absent: Prolonged Expiratory Phase, Rales, Rhonchi, Wheezes - Cardiovascular Exam Cardiovascular Exam: REGULAR RHYTHM, +S1, +S2 - GI/Abdominal Exam GI & Abdominal Exam: Soft, Normal Bowel Sounds. absent: Guarding, Tenderness, Diminished Bowel Sounds, Hypoactive Bowel Sounds, Pulsatile Mass - Extremities Exam Extremities Exam: Normal Capillary Refill - Neurological Exam Neurological Exam: Alert, Awake, Oriented x3 - Psychiatric Exam Psychiatric exam: Normal Affect, Normal Mood - Skin Skin Exam: Dry, Intact, Normal Color, Warm Assessment and Plan - Assessment and Plan (Free Text) Assessment: Hemoptysis Resolved. No more episodes in hospital. 40ml red [facility] reported at shelter per ED note. Dr. Ross and Dario consulted, help appreciated. CXR showed RUL infiltrate. Procalcitonin level low. Rocephin 1gm IVPB Q12h started 09/17, patient needs to have either 2g daily or 1g q12H until 10/08, per Dr. Bishop. CT angio showed RUL pneumonia (see full report). Quantiferon gold test negative. AFB stain negative. Pancytopenia Chronic. Standard neutropenic precautions. Heme/onc dr. Nguyen consulted. Consulted Hemeonc- Dr. Miguel Knutson IV Ferrlicit. s/p Bone marrow biopsy with Dr. Knutson - awaiting results Right foot infection Podiatry Dr. Ramirez consulted, help appreciated. Left arm swelling Venous doppler showed left arm cephalic vein thrombosis. Vascular Dr. Lugo consulted, help appreciated. Symptomatic treatment for now. DM Lantus 10U SC HS RISS, accucheck. Prophylactic measure Protonix PO. SCD and HepSQ contraindicated. Management per Dr. Ramírez. DC Planning- case management currently trying to find MARTHA in the patient's insurance network <Santiago Ramírez - Last Filed: 10/02/16 22:29> Objective - Vital Signs/Intake and Output Vital Signs (last 24 hours): Temp Pulse Resp BP Pulse Ox 97.6 F 63 20 159/61 H 97 10/02/16 15:25 10/02/16 15:25 10/02/16 15:25 10/02/16 15:25 10/02/16 15:25 Intake and Output: 10/02/16 10/03/16 18:59 06:59 Intake Total 740 Balance 740 - Medications Medications: Current Medications Ceftriaxone Sodium 1 gm/ (Sodium Chloride) 100 mls @ 200 mls/hr IVPB Q12H [facility] Last Admin: 10/02/16 21:43 Dose: 200 mls/hr Insulin Glargine (Lantus) 10 unit SC [facility] Last Admin: 10/02/16 21:49 Dose: Not Given Insulin Human Regular (Novolin R) 0 unit SC ACHS [facility] PRN Reason: Protocol Last Admin: 10/02/16 21:47 Dose: Not Given Lactic Acid (Lac-Hydrin 12% Lotion (225 G)) 0 gm EXT BID [facility] Last Admin: 10/02/16 18:47 Dose: 1 applic Pantoprazole Sodium (Protonix Ec Tab) 40 mg PO DAILY [facility] Last Admin: 10/02/16 09:55 Dose: 40 mg Rosuvastatin Calcium (Crestor) 20 mg PO [facility] Last Admin: 10/02/16 21:50 Dose: 20 mg - Labs Labs: 10/01/16 06:01 10/01/16 06:01 PT 13.8 SECONDS (9.7-12.2) H 09/16/16 20:54 INR 1.2 09/16/16 20:54 APTT 34 SECONDS (21-34) 09/16/16 20:54 Assessment and Plan (1) Gastrointestinal hemorrhage Status: Acute (2) Pneumonia Status: Acute (3) Anemia Status: Acute (4) Chest pain Status: Acute (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 Status: Acute (6) Diabetes mellitus, new onset Status: Acute (7) Infected ulcer of skin Status: Acute (8) PAD (peripheral artery disease) Status: Acute (9) Pancytopenia Status: Acute (10) Prophylactic measure Status: Acute (11) CAD (coronary artery disease) Status: Chronic (12) Diabetes mellitus Status: Chronic Attending/Attestation - Attestation I have personally seen and examined this patient.: Yes I have fully participated in the care of the patient.: Yes I have reviewed all pertinent clinical information, including history, physical exam and plan: Yes Notes (Text): 10/02/16 22:28 case seen and discusse dit staff pancytopenia bm biopsy pendingcnoti same iv antibitoic
--- NOTE | 2016-10-02 19:48 | CP.PCM.PN ---
Subjective - Date & Time of Evaluation Date of Evaluation: 10/02/16 Time of Evaluation: 11:00 - Subjective Subjective: No complaints Objective - Vital Signs/Intake and Output Vital Signs (last 24 hours): Temp Pulse Resp BP Pulse Ox 97.6 F 63 20 159/61 H 97 10/02/16 15:25 10/02/16 15:25 10/02/16 15:25 10/02/16 15:25 10/02/16 15:25 Intake and Output: 10/02/16 10/03/16 18:59 06:59 Intake Total 740 Balance 740 - Medications Medications: Current Medications Ceftriaxone Sodium 1 gm/ (Sodium Chloride) 100 mls @ 200 mls/hr IVPB Q12H [facility] Last Admin: 10/02/16 09:54 Dose: 200 mls/hr Insulin Glargine (Lantus) 10 unit SC [facility] Last Admin: 10/01/16 21:29 Dose: 10 units Insulin Human Regular (Novolin R) 0 unit SC ACHS [facility] PRN Reason: Protocol Last Admin: 10/02/16 17:16 Dose: 2 unit Lactic Acid (Lac-Hydrin 12% Lotion (225 G)) 0 gm EXT BID [facility] Last Admin: 10/02/16 09:57 Dose: 1 applic Pantoprazole Sodium (Protonix Ec Tab) 40 mg PO DAILY [facility] Last Admin: 10/02/16 09:55 Dose: 40 mg Rosuvastatin Calcium (Crestor) 20 mg PO [facility] Last Admin: 10/01/16 21:29 Dose: 20 mg - Labs Labs: 10/01/16 06:01 10/01/16 06:01 PT 13.8 SECONDS (9.7-12.2) H 09/16/16 20:54 INR 1.2 09/16/16 20:54 APTT 34 SECONDS (21-34) 09/16/16 20:54 - Head Exam Head Exam: ATRAUMATIC - Eye Exam Eye Exam: Normal appearance - ENT Exam ENT Exam: Mucous Membranes Dry - Respiratory Exam Respiratory Exam: NORMAL BREATHING PATTERN - Cardiovascular Exam Cardiovascular Exam: +S1, +S2 - GI/Abdominal Exam GI & Abdominal Exam: Normal Bowel Sounds Assessment and Plan (1) Pancytopenia Assessment & Plan: awaiting bone marrow results Status: Acute
[2016-10-02] MEDS: (Lantus) Insulin Glargine, Recombinant SC SCH (21:49)
[2016-10-03 07:35] LABS: BASO % 0.4 % (0.0-2.0); EOS # 0.1 K/uL (0.0-0.7); EOS % 5.4 % (0.0-4.0); HEMATOCRIT 24.5 % (35.0-51.0); LYMPH # 1.1 K/uL (1.0-4.3); MEAN CELL VOLUME 78.6 fL (80.0-94.0); MEAN CORPUSCULAR HEMOGLOBIN 26.5 pg (27.0-31.0); MEAN CORPUSCULAR HGB CONC 33.7 g/dL (33.0-37.0); MEAN PLATELET VOLUME 9.4 fL (7.2-11.7); MONO # 0.4 K/uL (0.0-0.8); MONO % 20.8 % (0.0-10.0); NRBC % 0.4 % (0.0-2.0); PLATELET COUNT 93 K/uL (130-400); RED CELL DISTRIBUTION WIDTH 21.6 % (11.5-14.5)
[2016-10-03 07:41] LABS: CHLORIDE 103 mmol/L (98-107)
[2016-10-03 07:42] LABS: POTASSIUM 4.2 mmol/L (3.6-5.2); SODIUM 139 mmol/L (132-148)
[2016-10-03 07:44] LABS: BILIRUBIN,TOTAL 0.7 mg/dL (0.2-1.3); GFR AFRICAN-AMERICAN > 60; WHITE BLOOD COUNT 1.8 K/uL (4.8-10.8)
[2016-10-03 07:45] LABS: ALB/GLOB RATIO 0.9 (1.0-2.1); ALKALINE PHOSPHATASE 88 U/L (38-126); ALT/SGPT 12 U/L (21-72); AST/SGOT 19 U/L (17-59); BLOOD UREA NITROGEN 18 mg/dL (9-20); CALCIUM 8.6 mg/dl (8.6-10.4); CARBON DIOXIDE 25 mmol/L (22-30); GLUCOSE,RANDOM 130 mg/dL (75-110); TOTAL PROTEIN 7.3 g/dL (6.3-8.3)
[2016-10-03] MEDS: (Novolin R) Insulin Human Regular 100 units/ml vial SC SCH ×4 (08:16→22:35)
--- NOTE | 2016-10-03 08:23 | CP.PCM.PN ---
Subjective - Date & Time of Evaluation Date of Evaluation: 10/03/16 Time of Evaluation: 08:20 - Subjective Subjective: pt seen for continued tx of stsis ulcer right ankle . Objective - Vital Signs/Intake and Output Vital Signs (last 24 hours): Temp Pulse Resp BP Pulse Ox 98.2 F 71 20 134/74 97 10/03/16 07:53 10/03/16 07:53 10/03/16 07:53 10/03/16 07:53 10/03/16 07:53 Intake and Output: 10/03/16 10/03/16 06:59 18:59 Intake Total 490 Output Total 2 Balance 488 - Medications Medications: Current Medications Ceftriaxone Sodium 1 gm/ (Sodium Chloride) 100 mls @ 200 mls/hr IVPB Q12H [facility] Last Admin: 10/02/16 21:43 Dose: 200 mls/hr Insulin Glargine (Lantus) 10 unit SC [facility] Last Admin: 10/02/16 21:49 Dose: Not Given Insulin Human Regular (Novolin R) 0 unit SC [facility] PRN Reason: Protocol Last Admin: 10/03/16 08:16 Dose: Not Given Lactic Acid (Lac-Hydrin 12% Lotion (225 G)) 0 gm EXT BID [facility] Last Admin: 10/02/16 18:47 Dose: 1 applic Pantoprazole Sodium (Protonix Ec Tab) 40 mg PO DAILY [facility] Last Admin: 10/02/16 09:55 Dose: 40 mg Rosuvastatin Calcium (Crestor) 20 mg PO [facility] Last Admin: 10/02/16 21:50 Dose: 20 mg - Labs Labs: 10/03/16 06:59 10/03/16 06:59 PT 13.8 SECONDS (9.7-12.2) H 09/16/16 20:54 INR 1.2 09/16/16 20:54 APTT 34 SECONDS (21-34) 09/16/16 20:54 - Extremities Exam Additional comments: O/stasis ulcer right ankle . no sign of infection. Assessment and Plan - Assessment and Plan (Free Text) Assessment: a/stasis ulcer right Plan: p/apply xeroform dressing right ankle ulcer .
--- NOTE | 2016-10-03 08:59 | CP.PCM.PN ---
Subjective - Date & Time of Evaluation Date of Evaluation: 10/03/16 Time of Evaluation: 08:30 - Subjective Subjective: Patient was seen and evaluated at bedside this morning with attending, Dr. Ramirez. He denies any pedal complaints at this time. Denies any F/C/N/V. RLE dressing appears to be C/D/I. Objective - Vital Signs/Intake and Output Vital Signs (last 24 hours): Temp Pulse Resp BP Pulse Ox 98.2 F 71 20 134/74 97 10/03/16 07:53 10/03/16 07:53 10/03/16 07:53 10/03/16 07:53 10/03/16 07:53 Intake and Output: 10/03/16 10/03/16 06:59 18:59 Intake Total 490 Output Total 2 Balance 488 - Medications Medications: Current Medications Ceftriaxone Sodium 1 gm/ (Sodium Chloride) 100 mls @ 200 mls/hr IVPB Q12H [facility] Last Admin: 10/02/16 21:43 Dose: 200 mls/hr Insulin Glargine (Lantus) 10 unit SC [facility] Last Admin: 10/02/16 21:49 Dose: Not Given Insulin Human Regular (Novolin R) 0 unit SC ACHS [facility] PRN Reason: Protocol Last Admin: 10/03/16 08:16 Dose: Not Given Lactic Acid (Lac-Hydrin 12% Lotion (225 G)) 0 gm EXT BID [facility] Last Admin: 10/02/16 18:47 Dose: 1 applic Pantoprazole Sodium (Protonix Ec Tab) 40 mg PO DAILY [facility] Last Admin: 10/02/16 09:55 Dose: 40 mg Rosuvastatin Calcium (Crestor) 20 mg PO [facility] Last Admin: 10/02/16 21:50 Dose: 20 mg - Labs Labs: 10/03/16 06:59 10/03/16 06:59 PT 13.8 SECONDS (9.7-12.2) H 09/16/16 20:54 INR 1.2 09/16/16 20:54 APTT 34 SECONDS (21-34) 09/16/16 20:54 - Constitutional Appears: Non-toxic, No Acute Distress - Neurological Exam Neurological Exam: Alert, Awake, Oriented x3 - Psychiatric Exam Psychiatric exam: Normal Affect, Normal Mood - Skin Skin Exam: Dry, Normal Color, Warm. absent: Erythema - Additional Findings Additional findings: RLE exam: DERMATOLOGIC: Right lower extremity anteromedial leg ulceration, does not probe deep, granular base, mild serous drainage, no purulence, no undermining, no erythema or tracking present. The surrounding skin is intact. There is xerosis noted bilaterally. VASCULAR: DP/PT pulses 2/4, [employer]<3 seconds, skin temperature is normal NEUROLOGIC: Gross sensation intact, motor function intact ORTHOPEDIC: Mild pain on palpation to the wound site Assessment and Plan - Assessment and Plan (Free Text) Assessment: 71 y/o M with chronic Right ankle/lower leg stasis ulceration, stable. Plan: Patient seen and evaluated at bedside with attending, Dr. Ramirez Labs and vitals reviewed RLE dressing changed with Xeroform, DSD Once patient is d/c at the rehab, he is to continue with daily dressing changes of DSD with underlying xeroform and application of ammonium lactate cream to dry skin areas. Awaiting transfer to rehab, pending bed availability Podiatry to follow while patient remains in house
[2016-10-03 09:05] LABS: EOSINOPHIL 3 % (0-4); NEUTROPHIL 7 % (50-75); TOTAL CELLS COUNTED 100
[2016-10-03] MEDS: Pantoprazole 40 mg EC Tab PO SCH (10:43)
--- NOTE | 2016-10-03 11:02 | CP.PCM.PN ---
<Miguel Ángel Juarez - Last Filed: 10/03/16 10:59> Subjective - Date & Time of Evaluation Date of Evaluation: 10/03/16 Time of Evaluation: 09:00 - Subjective Subjective: PGY2 on medicine Dr. Ramírez service: Pt seen and examined at bedside this morning. No complaints overnight and no events reported per RN. Objective - Vital Signs/Intake and Output Vital Signs (last 24 hours): Temp Pulse Resp BP Pulse Ox 98.2 F 71 20 134/74 97 10/03/16 07:53 10/03/16 07:53 10/03/16 07:53 10/03/16 07:53 10/03/16 07:53 Intake and Output: 10/03/16 10/03/16 06:59 18:59 Intake Total 490 Output Total 2 Balance 488 - Medications Medications: Current Medications Aspirin (Aspirin) 325 mg PO DAILY [facility] Folic Acid (Folic Acid) 1 mg PO DAILY [facility] Ceftriaxone Sodium 1 gm/ (Sodium Chloride) 100 mls @ 200 mls/hr IVPB Q12H [facility] Last Admin: 10/03/16 10:43 Dose: 200 mls/hr Insulin Glargine (Lantus) 10 unit SC [facility] Last Admin: 10/02/16 21:49 Dose: Not Given Insulin Human Regular (Novolin R) 0 unit SC ACHS [facility] PRN Reason: Protocol Last Admin: 10/03/16 08:16 Dose: Not Given Isosorbide Mononitrate (Imdur) 30 mg PO DAILY [facility] Lactic Acid (Lac-Hydrin 12% Lotion (225 G)) 0 gm EXT BID [facility] Last Admin: 10/02/16 18:47 Dose: 1 applic Metoprolol Succinate (Toprol Xl) 12.5 mg PO DAILY [facility] Pantoprazole Sodium (Protonix Ec Tab) 40 mg PO DAILY [facility] Last Admin: 10/03/16 10:43 Dose: 40 mg Ranolazine (Ranexa) 500 mg PO BID [facility] Rosuvastatin Calcium (Crestor) 20 mg PO HS [facility] Last Admin: 10/02/16 21:50 Dose: 20 mg - Labs Labs: 10/03/16 06:59 10/03/16 06:59 PT 13.8 SECONDS (9.7-12.2) H 09/16/16 20:54 INR 1.2 09/16/16 20:54 APTT 34 SECONDS (21-34) 09/16/16 20:54 - Constitutional Appears: Non-toxic, No Acute Distress, Chronically Ill - Head Exam Head Exam: NORMOCEPHALIC - Eye Exam Eye Exam: Normal appearance Pupil Exam: NORMAL ACCOMODATION - ENT Exam ENT Exam: Mucous Membranes Moist - Respiratory Exam Respiratory Exam: Clear to Ausculation Bilateral, NORMAL BREATHING PATTERN. absent: Rhonchi, Wheezes - Cardiovascular Exam Cardiovascular Exam: REGULAR RHYTHM, +S1, +S2. absent: Gallop, Rubs - GI/Abdominal Exam GI & Abdominal Exam: Soft, Normal Bowel Sounds - Neurological Exam Neurological Exam: Alert, Awake, Oriented x3 Assessment and Plan - Assessment and Plan (Free Text) Assessment: Hemoptysis Resolved. No more episodes in hospital. [facility] Dr. Ross and Dario consulted, help appreciated. CXR showed RUL infiltrate. Procalcitonin level low. Rocephin 1gm IVPB Q12h started 09/17, patient needs to have either 2g daily or 1g q12H until 10/08, per Dr. Bishop. CT angio showed RUL pneumonia (see full report). Quantiferon gold test negative. AFB stain negative. Pancytopenia Chronic. Standard neutropenic precautions. Heme/onc dr. Nguyen consulted. Consulted Hemeonc- Dr. Miguel Knutson per pt request. IV Ferrlicit. s/p Bone marrow biopsy with Dr. Knutson - awaiting results Right foot infection Podiatry Dr. Ramirez consulted, help appreciated. Left arm swelling Venous doppler showed left arm cephalic vein thrombosis. Vascular Dr. Lugo consulted, help appreciated. Symptomatic treatment for now. DM Lantus 10U SC HS RISS, accucheck. Prophylactic measure Protonix PO. SCD and HepSQ contraindicated. Management per Dr. Ramírez. DC Planning- case management currently trying to find MARTHA in the patient's insurance network <Santiago Ramírez S - Last Filed: 10/03/16 19:52> Objective - Vital Signs/Intake and Output Vital Signs (last 24 hours): Temp Pulse Resp BP Pulse Ox 97.5 F L 67 21 156/67 H 99 10/03/16 16:00 10/03/16 16:00 10/03/16 16:00 10/03/16 16:00 10/03/16 16:00 Intake and Output: 10/03/16 10/04/16 18:59 06:59 Intake Total 400 Balance 400 - Medications Medications: Current Medications Aspirin (Aspirin) 325 mg PO DAILY [facility] Last Admin: 10/03/16 12:43 Dose: 325 mg Folic Acid (Folic Acid) 1 mg PO DAILY [facility] Last Admin: 10/03/16 12:43 Dose: 1 mg Ceftriaxone Sodium 1 gm/ (Sodium Chloride) 100 mls @ 200 mls/hr IVPB Q12H [facility] Last Admin: 10/03/16 10:43 Dose: 200 mls/hr Insulin Glargine (Lantus) 10 unit SC [facility] Last Admin: 10/02/16 21:49 Dose: Not Given Insulin Human Regular (Novolin R) 0 unit SC [facility] PRN Reason: Protocol Last Admin: 10/03/16 17:30 Dose: 1 unit Isosorbide Mononitrate (Imdur) 30 mg PO DAILY [facility] Last Admin: 10/03/16 12:43 Dose: 30 mg Lactic Acid (Lac-Hydrin 12% Lotion (225 G)) 0 gm EXT BID [facility] Last Admin: 10/03/16 19:14 Dose: 1 applic Metoprolol Succinate (Toprol Xl) 12.5 mg PO DAILY [facility] Last Admin: 10/03/16 12:44 Dose: 12.5 mg Pantoprazole Sodium (Protonix Ec Tab) 40 mg PO DAILY [facility] Last Admin: 10/03/16 10:43 Dose: 40 mg Ranolazine (Ranexa) 500 mg PO BID [facility] Last Admin: 10/03/16 19:13 Dose: 500 mg Rosuvastatin Calcium (Crestor) 20 mg PO HS [facility] Last Admin: 10/02/16 21:50 Dose: 20 mg - Labs Labs: 10/03/16 06:59 10/03/16 06:59 PT 13.8 SECONDS (9.7-12.2) H 09/16/16 20:54 INR 1.2 09/16/16 20:54 APTT 34 SECONDS (21-34) 09/16/16 20:54 Assessment and Plan (1) Gastrointestinal hemorrhage Status: Acute (2) Pneumonia Status: Acute (3) Anemia Status: Acute (4) Chest pain Status: Acute (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 Status: Acute (6) Diabetes mellitus, new onset Status: Acute (7) Infected ulcer of skin Status: Acute (8) PAD (peripheral artery disease) Status: Acute (9) Pancytopenia Status: Acute (10) Prophylactic measure Status: Acute (11) CAD (coronary artery disease) Status: Chronic (12) Diabetes mellitus Status: Chronic Attending/Attestation - Attestation I have personally seen and examined this patient.: Yes I have fully participated in the care of the patient.: Yes I have reviewed all pertinent clinical information, including history, physical exam and plan: Yes Notes (Text): 10/03/16 19:52 case seen and discussed with staff and resident mx s ordered
[2016-10-03] MEDS: Ammonium Lactate 12% Lotion (225 g) EXT SCH ×2 (12:43→19:14)
[2016-10-03] MEDS: Metoprolol Succinate 12.5 mg XL PO SCH ×2 (12:44)
[2016-10-03] MEDS: Ranolazine 500 mg Extended Release Tablets PO SCH ×2 (12:44→19:13)
--- NOTE | 2016-10-03 17:27 | CP.PCM.PN ---
Subjective - Date & Time of Evaluation Date of Evaluation: 10/03/16 Time of Evaluation: 09:00 - Subjective Subjective: clinically same Objective - Vital Signs/Intake and Output Vital Signs (last 24 hours): Temp Pulse Resp BP Pulse Ox 97.5 F L 67 21 156/67 H 99 10/03/16 16:00 10/03/16 16:00 10/03/16 16:00 10/03/16 16:00 10/03/16 16:00 Intake and Output: 10/03/16 10/03/16 06:59 18:59 Intake Total 490 400 Output Total 2 Balance 488 400 - Medications Medications: Current Medications Aspirin (Aspirin) 325 mg PO DAILY [facility] Last Admin: 10/03/16 12:43 Dose: 325 mg Folic Acid (Folic Acid) 1 mg PO DAILY [facility] Last Admin: 10/03/16 12:43 Dose: 1 mg Ceftriaxone Sodium 1 gm/ (Sodium Chloride) 100 mls @ 200 mls/hr IVPB Q12H [facility] Last Admin: 10/03/16 10:43 Dose: 200 mls/hr Insulin Glargine (Lantus) 10 unit SC [facility] Last Admin: 10/02/16 21:49 Dose: Not Given Insulin Human Regular (Novolin R) 0 unit SC [facility] PRN Reason: Protocol Last Admin: 10/03/16 12:45 Dose: 3 unit Isosorbide Mononitrate (Imdur) 30 mg PO DAILY [facility] Last Admin: 10/03/16 12:43 Dose: 30 mg Lactic Acid (Lac-Hydrin 12% Lotion (225 G)) 0 gm EXT BID [facility] Last Admin: 10/03/16 12:43 Dose: 1 applic Metoprolol Succinate (Toprol Xl) 12.5 mg PO DAILY [facility] Last Admin: 10/03/16 12:44 Dose: 12.5 mg Pantoprazole Sodium (Protonix Ec Tab) 40 mg PO DAILY [facility] Last Admin: 10/03/16 10:43 Dose: 40 mg Ranolazine (Ranexa) 500 mg PO BID [facility] Last Admin: 10/03/16 12:44 Dose: 500 mg Rosuvastatin Calcium (Crestor) 20 mg PO [facility] Last Admin: 10/02/16 21:50 Dose: 20 mg - Labs Labs: 10/03/16 06:59 10/03/16 06:59 PT 13.8 SECONDS (9.7-12.2) H 09/16/16 20:54 INR 1.2 09/16/16 20:54 APTT 34 SECONDS (21-34) 09/16/16 20:54 - Constitutional Appears: Well - Head Exam Head Exam: ATRAUMATIC, NORMAL INSPECTION, NORMOCEPHALIC - Eye Exam Eye Exam: EOMI, Normal appearance, PERRL Pupil Exam: NORMAL ACCOMODATION, PERRL - ENT Exam ENT Exam: Mucous Membranes Moist, Normal Exam - Neck Exam Neck Exam: Full ROM, Normal Inspection. 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
[2016-10-03] MEDS: (Lantus) Insulin Glargine, Recombinant SC SCH (22:34)
[2016-10-04 01:18] VITALS: RESP 20
[2016-10-04 07:40] LABS: BASO % 0.5 % (0.0-2.0); EOS # 0.1 K/uL (0.0-0.7); EOS % 4.3 % (0.0-4.0); HEMATOCRIT 23.3 % (35.0-51.0); LYMPH % 57.8 % (20.0-40.0); MEAN CELL VOLUME 78.4 fL (80.0-94.0); MEAN CORPUSCULAR HEMOGLOBIN 26.5 pg (27.0-31.0); MEAN CORPUSCULAR HGB CONC 33.9 g/dL (33.0-37.0); MEAN PLATELET VOLUME 9.2 fL (7.2-11.7); MONO # 0.4 K/uL (0.0-0.8); MONO % 21.6 % (0.0-10.0); NRBC % 0.1 % (0.0-2.0); PLATELET COUNT 91 K/uL (130-400); RED CELL DISTRIBUTION WIDTH 21.2 % (11.5-14.5)
[2016-10-04 07:44] LABS: WHITE BLOOD COUNT 1.8 K/uL (4.8-10.8)
[2016-10-04 07:55] LABS: CHLORIDE 103 mmol/L (98-107)
[2016-10-04 07:57] LABS: POTASSIUM 4.2 mmol/L (3.6-5.2); SODIUM 139 mmol/L (132-148)
[2016-10-04 07:58] LABS: ALB/GLOB RATIO 0.9 (1.0-2.1); AST/SGOT 13 U/L (17-59); BILIRUBIN,TOTAL 0.6 mg/dL (0.2-1.3); BLOOD UREA NITROGEN 19 mg/dL (9-20); CARBON DIOXIDE 25 mmol/L (22-30); GFR AFRICAN-AMERICAN > 60
[2016-10-04 07:59] LABS: ALKALINE PHOSPHATASE 82 U/L (38-126); ALT/SGPT 16 U/L (21-72); CALCIUM 8.6 mg/dl (8.6-10.4); GLUCOSE,RANDOM 137 mg/dL (75-110)
[2016-10-04] MEDS: (Novolin R) Insulin Human Regular 100 units/ml vial SC SCH ×4 (08:38→22:01)
[2016-10-04 08:49] LABS: EOSINOPHIL 3 % (0-4); NEUTROPHIL 25 % (50-75); TOTAL CELLS COUNTED 100
--- NOTE | 2016-10-04 09:34 | CP.PCM.PN ---
Subjective - Date & Time of Evaluation Date of Evaluation: 10/03/16 Time of Evaluation: 14:00 - Subjective Subjective: No complaints. Objective - Vital Signs/Intake and Output Vital Signs (last 24 hours): Temp Pulse Resp BP Pulse Ox 97.6 F 69 20 144/70 98 10/04/16 07:41 10/04/16 07:41 10/04/16 07:41 10/04/16 07:41 10/04/16 07:41 Intake and Output: 10/04/16 10/04/16 06:59 18:59 Intake Total 700 Balance 700 - Medications Medications: Current Medications Aspirin (Aspirin) 325 mg PO DAILY [facility] Last Admin: 10/03/16 12:43 Dose: 325 mg Folic Acid (Folic Acid) 1 mg PO DAILY [facility] Last Admin: 10/03/16 12:43 Dose: 1 mg Ceftriaxone Sodium 1 gm/ (Sodium Chloride) 100 mls @ 200 mls/hr IVPB Q12H [facility] Last Admin: 10/03/16 22:35 Dose: 200 mls/hr Insulin Glargine (Lantus) 10 unit SC [facility] Last Admin: 10/03/16 22:34 Dose: 10 units Insulin Human Regular (Novolin R) 0 unit SC [facility] PRN Reason: Protocol Last Admin: 10/04/16 08:38 Dose: 1 unit Isosorbide Mononitrate (Imdur) 30 mg PO DAILY [facility] Last Admin: 10/03/16 12:43 Dose: 30 mg Lactic Acid (Lac-Hydrin 12% Lotion (225 G)) 0 gm EXT BID [facility] Last Admin: 10/03/16 19:14 Dose: 1 applic Metoprolol Succinate (Toprol Xl) 12.5 mg PO DAILY [facility] Last Admin: 10/03/16 12:44 Dose: 12.5 mg Pantoprazole Sodium (Protonix Ec Tab) 40 mg PO DAILY [facility] Last Admin: 10/03/16 10:43 Dose: 40 mg Ranolazine (Ranexa) 500 mg PO BID [facility] Last Admin: 10/03/16 19:13 Dose: 500 mg Rosuvastatin Calcium (Crestor) 20 mg PO HS [facility] Last Admin: 10/03/16 22:35 Dose: 20 mg - Labs Labs: 10/04/16 07:21 10/04/16 07:21 PT 13.8 SECONDS (9.7-12.2) H 09/16/16 20:54 INR 1.2 09/16/16 20:54 APTT 34 SECONDS (21-34) 09/16/16 20:54 - Head Exam Head Exam: ATRAUMATIC - Eye Exam Eye Exam: Normal appearance - ENT Exam ENT Exam: Mucous Membranes Dry - Respiratory Exam Respiratory Exam: NORMAL BREATHING PATTERN - Cardiovascular Exam Cardiovascular Exam: +S1, +S2 - GI/Abdominal Exam GI & Abdominal Exam: Normal Bowel Sounds Assessment and Plan (1) Pancytopenia Assessment & Plan: s/p bone marrow biopsy awaiting path results Status: Acute
[2016-10-04] MEDS: Pantoprazole 40 mg EC Tab PO SCH (10:44)
[2016-10-04] MEDS: Metoprolol Succinate 12.5 mg XL PO SCH (10:44)
[2016-10-04] MEDS: Ranolazine 500 mg Extended Release Tablets PO SCH ×2 (10:45→17:44)
[2016-10-04] MEDS: Ammonium Lactate 12% Lotion (225 g) EXT SCH ×2 (10:45→17:56)
--- NOTE | 2016-10-04 10:47 | CP.PCM.PN ---
Subjective - Date & Time of Evaluation Date of Evaluation: 10/04/16 Time of Evaluation: 09:25 - Subjective Subjective: Patient was seen and evaluated at bedside this morning. He denies any pedal complaints at this time. Denies any F/C/N/V. RLE dressing appears to be C/D/I. Objective - Vital Signs/Intake and Output Vital Signs (last 24 hours): Temp Pulse Resp BP Pulse Ox 97.6 F 69 20 144/70 98 10/04/16 07:41 10/04/16 07:41 10/04/16 07:41 10/04/16 07:41 10/04/16 07:41 Intake and Output: 10/04/16 10/04/16 06:59 18:59 Intake Total 700 Balance 700 - Medications Medications: Current Medications Aspirin (Aspirin) 325 mg PO DAILY [facility] Last Admin: 10/04/16 10:44 Dose: 325 mg Folic Acid (Folic Acid) 1 mg PO DAILY [facility] Last Admin: 10/04/16 10:44 Dose: 1 mg Ceftriaxone Sodium 1 gm/ (Sodium Chloride) 100 mls @ 200 mls/hr IVPB Q12H [facility] Last Admin: 10/04/16 10:45 Dose: 200 mls/hr Insulin Glargine (Lantus) [address] [facility] Last Admin: 10/03/16 22:34 Dose: 10 units Insulin Human Regular (Novolin R) 0 unit SC [facility] PRN Reason: Protocol Last Admin: 10/04/16 08:38 Dose: 1 unit Isosorbide Mononitrate (Imdur) 30 mg PO DAILY [facility] Last Admin: 10/04/16 10:44 Dose: 30 mg Lactic Acid (Lac-Hydrin 12% Lotion (225 G)) 0 gm EXT BID [facility] Last Admin: 10/04/16 10:45 Dose: 1 applic Metoprolol Succinate (Toprol Xl) 12.5 mg PO DAILY [facility] Last Admin: 10/04/16 10:44 Dose: 12.5 mg Pantoprazole Sodium (Protonix Ec Tab) 40 mg PO DAILY [facility] Last Admin: 10/04/16 10:44 Dose: 40 mg Ranolazine (Ranexa) 500 mg PO BID [facility] Last Admin: 10/04/16 10:45 Dose: 500 mg Rosuvastatin Calcium (Crestor) 20 mg PO HS [facility] Last Admin: 10/03/16 22:35 Dose: 20 mg - Labs Labs: 10/04/16 07:21 10/04/16 07:21 PT 13.8 SECONDS (9.7-12.2) H 09/16/16 20:54 INR 1.2 09/16/16 20:54 APTT 34 SECONDS (21-34) 09/16/16 20:54 - Constitutional Appears: Non-toxic, No Acute Distress - Neurological Exam Neurological Exam: Alert, Awake, Oriented x3 - Psychiatric Exam Psychiatric exam: Normal Affect, Normal Mood - Additional Findings Additional findings: RLE exam: DERMATOLOGIC: Right lower extremity anteromedial leg ulceration, does not probe deep, granular base, mild serous drainage, no purulence, no undermining, no erythema or tracking present. The surrounding skin is intact. There is xerosis noted bilaterally. 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 Plan: Patient seen and evaluated at bedside Discussed patient with attending, Dr. Ramirez Labs and vitals reviewed RLE dressing changed with Xeroform, DSD Once patient is d/c at the rehab, he is to continue with daily dressing changes of DSD with underlying xeroform and application of ammonium lactate cream to dry skin areas. Awaiting transfer to rehab, pending bed availability Podiatry to follow while patient remains in house
--- NOTE | 2016-10-04 16:22 | CP.PCM.PN ---
<Miguel Ángel Juarez - Last Filed: 10/04/16 16:19> Subjective - Date & Time of Evaluation Date of Evaluation: 10/04/16 Time of Evaluation: 09:00 - Subjective Subjective: PGY2 on medicine Dr. Ramírez service: Pt seen and examined. No acute events overnight per RN. Currently no complaints. Objective - Vital Signs/Intake and Output Vital Signs (last 24 hours): Temp Pulse Resp BP Pulse Ox 97.6 F 69 20 144/70 98 10/04/16 07:41 10/04/16 07:41 10/04/16 07:41 10/04/16 07:41 10/04/16 07:41 Intake and Output: 10/04/16 10/04/16 06:59 18:59 Intake Total 700 Balance 700 - Medications Medications: Current Medications Aspirin (Aspirin) 325 mg PO DAILY [facility] Last Admin: 10/04/16 10:44 Dose: 325 mg Folic Acid (Folic Acid) 1 mg PO DAILY [facility] Last Admin: 10/04/16 10:44 Dose: 1 mg Ceftriaxone Sodium 1 gm/ (Sodium Chloride) 100 mls @ 200 mls/hr IVPB Q12H [facility] Last Admin: 10/04/16 10:45 Dose: 200 mls/hr Insulin Glargine (Lantus) 10 unit SC [facility] Last Admin: 10/03/16 22:34 Dose: 10 units Insulin Human Regular (Novolin R) 0 unit SC [facility] PRN Reason: Protocol Last Admin: 10/04/16 12:00 Dose: 4 unit Isosorbide Mononitrate (Imdur) 30 mg PO DAILY [facility] Last Admin: 10/04/16 10:44 Dose: 30 mg Lactic Acid (Lac-Hydrin 12% Lotion (225 G)) 0 gm EXT BID [facility] Last Admin: 10/04/16 10:45 Dose: 1 applic Metoprolol Succinate (Toprol Xl) 12.5 mg PO DAILY [facility] Last Admin: 10/04/16 10:44 Dose: 12.5 mg Pantoprazole Sodium (Protonix Ec Tab) 40 mg PO DAILY [facility] Last Admin: 10/04/16 10:44 Dose: 40 mg Ranolazine (Ranexa) 500 mg PO BID [facility] Last Admin: 10/04/16 10:45 Dose: 500 mg Rosuvastatin Calcium (Crestor) 20 mg PO HS [facility] Last Admin: 10/03/16 22:35 Dose: 20 mg - Labs Labs: 10/04/16 07:21 10/04/16 07:21 PT 13.8 SECONDS (9.7-12.2) H 09/16/16 20:54 INR 1.2 09/16/16 20:54 APTT 34 SECONDS (21-34) 09/16/16 20:54 - Constitutional Appears: Non-toxic, No Acute Distress, Chronically Ill - Head Exam Head Exam: NORMAL INSPECTION, NORMOCEPHALIC - Eye Exam Eye Exam: Normal appearance Pupil Exam: NORMAL ACCOMODATION - ENT Exam ENT Exam: Mucous Membranes Moist - Respiratory Exam Respiratory Exam: Clear to Ausculation Bilateral, NORMAL BREATHING PATTERN. absent: Rhonchi, Wheezes - Cardiovascular Exam Cardiovascular Exam: REGULAR RHYTHM, +S1, +S2. absent: Gallop, Rubs - GI/Abdominal Exam GI & Abdominal Exam: Soft, Normal Bowel Sounds - Extremities Exam Extremities Exam: absent: Pedal Edema Additional comments: dressing intact - Neurological Exam Neurological Exam: Alert, Awake, Oriented x3 - Psychiatric Exam Psychiatric exam: Normal Mood - Skin Skin Exam: Intact Assessment and Plan - Assessment and Plan (Free Text) Assessment: Hemoptysis Resolved. No more episodes in hospital. 40ml red blood reported at [facility] per ED note. Dr. Ross and Dario consulted, help appreciated. CXR showed RUL infiltrate. Procalcitonin level low. Rocephin 1gm IVPB Q12h started 09/17, patient needs to have either 2g daily or 1g q12H until 10/08, per Dr. Bishop. CT angio showed RUL pneumonia (see full report). Quantiferon gold test negative. AFB stain negative. Pancytopenia Chronic. Standard neutropenic precautions. Heme/onc dr. Nguyen consulted. Consulted Hemeonc- Dr. Miguel Knutson per pt request. IV Ferrlicit. s/p Bone marrow biopsy with Dr. Knutson - awaiting results Right foot infection Podiatry Dr. Ramirez consulted, help appreciated. Left arm swelling Venous doppler showed left arm cephalic vein thrombosis. Vascular Dr. Lugo consulted, help appreciated. Symptomatic treatment for now. DM Lantus 10U SC HS [facility], accucheck. Prophylactic measure Protonix PO. SCD and HepSQ contraindicated. Management per Dr. Ramírez. DC Planning- case management currently trying to find MARTHA in the patient's insurance network <Santiago Ramírez S - Last Filed: 10/04/16 18:50> Objective - Vital Signs/Intake and Output Vital Signs (last 24 hours): Temp Pulse Resp BP Pulse Ox 98.2 F 63 20 166/76 H 98 10/04/16 15:35 10/04/16 15:35 10/04/16 15:35 10/04/16 15:35 10/04/16 15:35 Intake and Output: 10/04/16 10/04/16 06:59 18:59 Intake Total 700 Balance 700 - Medications Medications: Current Medications Aspirin (Aspirin) 325 mg PO DAILY [facility] Last Admin: 10/04/16 10:44 Dose: 325 mg Epoetin Gunnar (Procrit) 10,000 unit SC TTS [facility] Stop: 10/09/16 10:01 Last Admin: 10/04/16 17:55 Dose: 10,000 unit Folic Acid (Folic Acid) 1 mg PO DAILY [facility] Last Admin: 10/04/16 10:44 Dose: 1 mg Ceftriaxone Sodium 1 gm/ (Sodium Chloride) 100 mls @ 200 mls/hr IVPB Q12H [facility] Last Admin: 10/04/16 10:45 Dose: 200 mls/hr Insulin Glargine (Lantus) 10 unit SC HS [facility] Last Admin: 10/03/16 22:34 Dose: 10 units Insulin Human Regular (Novolin R) 0 unit SC [facility] PRN Reason: Protocol Last Admin: 10/04/16 17:10 Dose: 1 unit Isosorbide Mononitrate (Imdur) 30 mg PO DAILY [facility] Last Admin: 10/04/16 10:44 Dose: 30 mg Lactic Acid (Lac-Hydrin 12% Lotion (225 G)) 0 gm EXT BID [facility] Last Admin: 10/04/16 17:56 Dose: 1 applic Metoprolol Succinate (Toprol Xl) 12.5 mg PO DAILY [facility] Last Admin: 10/04/16 10:44 Dose: 12.5 mg Pantoprazole Sodium (Protonix Ec Tab) 40 mg PO DAILY [facility] Last Admin: 10/04/16 10:44 Dose: 40 mg Ranolazine (Ranexa) 500 mg PO BID [facility] Last Admin: 10/04/16 17:44 Dose: 500 mg Rosuvastatin Calcium (Crestor) 20 mg PO HS [facility] Last Admin: 10/03/16 22:35 Dose: 20 mg - Labs Labs: 10/04/16 07:21 10/04/16 07:21 PT 13.8 SECONDS (9.7-12.2) H 09/16/16 20:54 INR 1.2 09/16/16 20:54 APTT 34 SECONDS (21-34) 09/16/16 20:54 Assessment and Plan (1) Gastrointestinal hemorrhage Status: Acute (2) Pneumonia Status: Acute (3) Anemia Status: Acute (4) Chest pain Status: Acute (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 Status: Acute (6) Diabetes mellitus, new onset Status: Acute (7) Infected ulcer of skin Status: Acute (8) PAD (peripheral artery disease) Status: Acute (9) Pancytopenia Status: Acute (10) Prophylactic measure Status: Acute (11) CAD (coronary artery disease) Status: Chronic (12) Diabetes mellitus Status: Chronic Attending/Attestation - Attestation I have personally seen and examined this patient.: Yes I have fully participated in the care of the patient.: Yes I have reviewed all pertinent clinical information, including history, physical exam and plan: Yes Notes (Text): 10/04/16 18:50 case seen adn [id number] with staff mx as agred savana iv antibitoic as well bm biopsy pending wbc is still low savana as ordered
[2016-10-04] MEDS ORDERED: EPOETIN ALFA 10,000 UNIT/ML ML SC SCH (17:00)
--- NOTE | 2016-10-04 18:50 | CP.PCM.PN ---
Subjective - Date & Time of Evaluation Date of Evaluation: 10/04/16 Time of Evaluation: 07:00 - Subjective Subjective: clinically same Objective - Vital Signs/Intake and Output Vital Signs (last 24 hours): Temp Pulse Resp BP Pulse Ox 98.2 F 63 20 166/76 H 98 10/04/16 15:35 10/04/16 15:35 10/04/16 15:35 10/04/16 15:35 10/04/16 15:35 Intake and Output: 10/04/16 10/04/16 06:59 18:59 Intake Total 700 Balance 700 - Medications Medications: Current Medications Aspirin (Aspirin) 325 mg PO DAILY [facility] Last Admin: 10/04/16 10:44 Dose: 325 mg Epoetin Gunnar (Procrit) 10,000 unit SC TTS [facility] Stop: 10/09/16 10:01 Last Admin: 10/04/16 17:55 Dose: 10,000 unit Folic Acid (Folic Acid) 1 mg PO DAILY [facility] Last Admin: 10/04/16 10:44 Dose: 1 mg Ceftriaxone Sodium 1 gm/ (Sodium Chloride) 100 mls @ 200 mls/hr IVPB Q12H [facility] Last Admin: 10/04/16 10:45 Dose: 200 mls/hr Insulin Glargine (Lantus) 10 unit SC HS [facility] Last Admin: 10/03/16 22:34 Dose: 10 units Insulin Human Regular (Novolin R) 0 unit SC [facility] PRN Reason: Protocol Last Admin: 10/04/16 17:10 Dose: 1 unit Isosorbide Mononitrate (Imdur) 30 mg PO DAILY [facility] Last Admin: 10/04/16 10:44 Dose: 30 mg Lactic Acid (Lac-Hydrin 12% Lotion (225 G)) 0 gm EXT BID [facility] Last Admin: 10/04/16 17:56 Dose: 1 applic Metoprolol Succinate (Toprol Xl) 12.5 mg PO DAILY [facility] Last Admin: 10/04/16 10:44 Dose: 12.5 mg Pantoprazole Sodium (Protonix Ec Tab) 40 mg PO DAILY [facility] Last Admin: 10/04/16 10:44 Dose: 40 mg Ranolazine (Ranexa) 500 mg PO BID [facility] Last Admin: 10/04/16 17:44 Dose: 500 mg Rosuvastatin Calcium (Crestor) 20 mg PO HS [facility] Last Admin: 10/03/16 22:35 Dose: 20 mg - Labs Labs: 10/04/16 07:21 10/04/16 07:21 PT 13.8 SECONDS (9.7-12.2) H 09/16/16 20:54 INR 1.2 09/16/16 20:54 APTT 34 SECONDS (21-34) 09/16/16 20:54 - ENT Exam ENT Exam: Mucous Membranes Moist, Normal Exam - Neck Exam Neck Exam: Full ROM, Normal Inspection. 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
[2016-10-04] MEDS: (Lantus) Insulin Glargine, Recombinant SC SCH (22:03)
[2016-10-05 06:30] LABS: BASO % 0.3 % (0.0-2.0); EOS # 0.1 K/uL (0.0-0.7); EOS % 1.7 % (0.0-4.0); HEMATOCRIT 24.5 % (35.0-51.0); LYMPH # 1.2 K/uL (1.0-4.3); LYMPH % 20.3 % (20.0-40.0); MEAN CELL VOLUME 78.8 fL (80.0-94.0); MEAN CORPUSCULAR HEMOGLOBIN 26.9 pg (27.0-31.0); MEAN CORPUSCULAR HGB CONC 34.2 g/dL (33.0-37.0); MEAN PLATELET VOLUME 9.4 fL (7.2-11.7); MONO % 18.3 % (0.0-10.0); NRBC % 0.2 % (0.0-2.0); RED CELL DISTRIBUTION WIDTH 20.9 % (11.5-14.5)
[2016-10-05 06:31] LABS: CHLORIDE 101 mmol/L (98-107)
[2016-10-05 06:32] LABS: POTASSIUM 4.1 mmol/L (3.6-5.2); SODIUM 138 mmol/L (132-148); WHITE BLOOD COUNT 5.7 K/uL (4.8-10.8)
[2016-10-05 06:34] LABS: ALB/GLOB RATIO 0.8 (1.0-2.1); ALKALINE PHOSPHATASE 92 U/L (38-126); AST/SGOT 17 U/L (17-59); BILIRUBIN,TOTAL 0.7 mg/dL (0.2-1.3); BLOOD UREA NITROGEN 20 mg/dL (9-20); CARBON DIOXIDE 25 mmol/L (22-30); GFR AFRICAN-AMERICAN > 60
[2016-10-05 06:35] LABS: ALT/SGPT 13 U/L (21-72); CALCIUM 8.9 mg/dl (8.6-10.4); GLUCOSE,RANDOM 124 mg/dL (75-110)
--- NOTE | 2016-10-05 07:44 | CP.PCM.PN ---
Subjective - Date & Time of Evaluation Date of Evaluation: 10/05/16 Time of Evaluation: 07:30 - Subjective Subjective: Patient was seen and evaluated at bedside this morning with attending, Dr. Ramirez. Patient states that he is feeling well. He denies any pedal complaints at this time. Denies any F/C/N/V. RLE dressing appears to be C/D/I. Objective - Vital Signs/Intake and Output Vital Signs (last 24 hours): Temp Pulse Resp BP Pulse Ox 97.5 F L 71 20 154/66 H 99 10/05/16 00:00 10/05/16 00:00 10/05/16 00:00 10/05/16 00:00 10/05/16 00:00 Intake and Output: 10/05/16 10/05/16 06:59 18:59 Intake Total 590 Balance 590 - Medications Medications: Current Medications Aspirin (Aspirin) 325 mg PO DAILY [facility] Last Admin: 10/04/16 10:44 Dose: 325 mg Epoetin Gunnar (Procrit) 10,000 unit SC TTS [facility] Stop: 10/09/16 10:01 Last Admin: 10/04/16 17:55 Dose: 10,000 unit Folic Acid (Folic Acid) 1 mg PO DAILY [facility] Last Admin: 10/04/16 10:44 Dose: 1 mg Ceftriaxone Sodium 1 gm/ (Sodium Chloride) 100 mls @ 200 mls/hr IVPB Q12H [facility] Last Admin: 10/04/16 21:54 Dose: 200 mls/hr Insulin Glargine (Lantus) 10 unit SC HS [facility] Last Admin: 10/04/16 22:03 Dose: 10 units Insulin Human Regular (Novolin R) 0 unit SC ACHS [facility] PRN Reason: Protocol Last Admin: 10/04/16 22:01 Dose: Not Given Isosorbide Mononitrate (Imdur) 30 mg PO DAILY [facility] Last Admin: 10/04/16 10:44 Dose: 30 mg Lactic Acid (Lac-Hydrin 12% Lotion (225 G)) 0 gm EXT BID [facility] Last Admin: 10/04/16 17:56 Dose: 1 applic Metoprolol Succinate (Toprol Xl) 12.5 mg PO DAILY [facility] Last Admin: 10/04/16 10:44 Dose: 12.5 mg Pantoprazole Sodium (Protonix Ec Tab) 40 mg PO DAILY [facility] Last Admin: 10/04/16 10:44 Dose: 40 mg Ranolazine (Ranexa) 500 mg PO BID [facility] Last Admin: 10/04/16 17:44 Dose: 500 mg Rosuvastatin Calcium (Crestor) 20 mg PO HS [facility] Last Admin: 10/04/16 21:54 Dose: 20 mg - Labs Labs: 10/05/16 06:15 10/05/16 06:15 PT 13.8 SECONDS (9.7-12.2) H 09/16/16 20:54 INR 1.2 09/16/16 20:54 APTT 34 SECONDS (21-34) 09/16/16 20:54 - Constitutional Appears: Non-toxic, No Acute Distress - Neurological Exam Neurological Exam: Alert, Awake, Oriented x3 - Psychiatric Exam Psychiatric exam: Normal Affect, Normal Mood - Additional Findings Additional findings: RLE exam: DERMATOLOGIC: Right lower extremity anteromedial leg ulceration, does not probe deep, granular base, mild serous drainage, no purulence, no undermining, no erythema or tracking present. The surrounding skin is intact. There is xerosis noted bilaterally. 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 Plan: Patient seen and evaluated at bedside with attending, Dr. Ramirez Labs and vitals reviewed RLE dressing changed with Xeroform, DSD Once patient is d/c at the rehab, he is to continue with daily dressing changes of DSD with underlying xeroform and application of ammonium lactate cream to dry skin areas. Awaiting transfer to rehab, pending bed availability Podiatry to follow while patient remains in house
[2016-10-05] MEDS: (Novolin R) Insulin Human Regular 100 units/ml vial SC SCH ×3 (08:21→17:10)
--- NOTE | 2016-10-05 09:02 | CP.PCM.PN ---
Subjective - Date & Time of Evaluation Date of Evaluation: 10/05/16 Time of Evaluation: 08:45 - Subjective Subjective: pt seen for continued treatment of ankle ulcer chronic in nature . Objective - Vital Signs/Intake and Output Vital Signs (last 24 hours): Temp Pulse Resp BP Pulse Ox 97.5 F L 71 20 154/66 H 99 10/05/16 00:00 10/05/16 00:00 10/05/16 00:00 10/05/16 00:00 10/05/16 00:00 Intake and Output: 10/05/16 10/05/16 06:59 18:59 Intake Total 590 Balance 590 - Medications Medications: Current Medications Aspirin (Aspirin) 325 mg PO DAILY [facility] Last Admin: 10/04/16 10:44 Dose: 325 mg Epoetin Gunnar (Procrit) 10,000 unit SC TTS [facility] Stop: 10/09/16 10:01 Last Admin: 10/04/16 17:55 Dose: 10,000 unit Folic Acid (Folic Acid) 1 mg PO DAILY [facility] Last Admin: 10/04/16 10:44 Dose: 1 mg Ceftriaxone Sodium 1 gm/ (Sodium Chloride) 100 mls @ 200 mls/hr IVPB Q12H [facility] Last Admin: 10/04/16 21:54 Dose: 200 mls/hr Insulin Glargine (Lantus) 10 unit SC HS [facility] Last Admin: 10/04/16 22:03 Dose: 10 units Insulin Human Regular (Novolin R) 0 unit SC ACHS [facility] PRN Reason: Protocol Last Admin: 10/05/16 08:21 Dose: Not Given Isosorbide Mononitrate (Imdur) 30 mg PO DAILY [facility] Last Admin: 10/04/16 10:44 Dose: 30 mg Lactic Acid (Lac-Hydrin 12% Lotion (225 G)) 0 gm EXT BID [facility] Last Admin: 10/04/16 17:56 Dose: 1 applic Metoprolol Succinate (Toprol Xl) 12.5 mg PO DAILY [facility] Last Admin: 10/04/16 10:44 Dose: 12.5 mg Pantoprazole Sodium (Protonix Ec Tab) 40 mg PO DAILY [facility] Last Admin: 10/04/16 10:44 Dose: 40 mg Ranolazine (Ranexa) 500 mg PO BID [facility] Last Admin: 10/04/16 17:44 Dose: 500 mg Rosuvastatin Calcium (Crestor) 20 mg PO HS [facility] Last Admin: 10/04/16 21:54 Dose: 20 mg - Labs Labs: 10/05/16 06:15 10/05/16 06:15 PT 13.8 SECONDS (9.7-12.2) H 09/16/16 20:54 INR 1.2 09/16/16 20:54 APTT 34 SECONDS (21-34) 09/16/16 20:54 - Extremities Exam Additional comments: O/stasis ulcer improving and granular . No sign of infection . Assessment and Plan - Assessment and Plan (Free Text) Assessment: A/stasis ulcer Plan: P/Xeroform gauze dressing applied .
--- NOTE | 2016-10-05 10:33 | CP.PCM.PN ---
<Ron Gallagher - Last Filed: 10/05/16 11:14> Subjective - Date & Time of Evaluation Date of Evaluation: 10/05/16 Time of Evaluation: 07:50 - Subjective Subjective: Medicine Note- Dr. Ramírez's service Patient was seen and examined at bedside. Patient reports no acute complaints. No events overnight, per nursing. Objective - Vital Signs/Intake and Output Vital Signs (last 24 hours): Temp Pulse Resp BP Pulse Ox 98.5 F 80 20 138/67 97 10/05/16 08:00 10/05/16 08:00 10/05/16 08:00 10/05/16 08:00 10/05/16 08:00 Intake and Output: 10/05/16 10/05/16 06:59 18:59 Intake Total 590 Balance 590 - Medications Medications: Current Medications Aspirin (Aspirin) 325 mg PO DAILY [facility] Last Admin: 10/04/16 10:44 Dose: 325 mg Epoetin Gunnar (Procrit) 10,000 unit SC TTS [facility] Stop: 10/09/16 10:01 Last Admin: 10/04/16 17:55 Dose: 10,000 unit Folic Acid (Folic Acid) 1 mg PO DAILY [facility] Last Admin: 10/04/16 10:44 Dose: 1 mg Ceftriaxone Sodium 1 gm/ (Sodium Chloride) 100 mls @ 200 mls/hr IVPB Q12H [facility] Last Admin: 10/04/16 21:54 Dose: 200 mls/hr Insulin Glargine (Lantus) 10 unit SC HS [facility] Last Admin: 10/04/16 22:03 Dose: 10 units Insulin Human Regular (Novolin R) 0 unit SC ACHS [facility] PRN Reason: Protocol Last Admin: 10/05/16 08:21 Dose: Not Given Isosorbide Mononitrate (Imdur) 30 mg PO DAILY [facility] Last Admin: 10/04/16 10:44 Dose: 30 mg Lactic Acid (Lac-Hydrin 12% Lotion (225 G)) 0 gm EXT BID [facility] Last Admin: 10/04/16 17:56 Dose: 1 applic Metoprolol Succinate (Toprol Xl) 12.5 mg PO DAILY [facility] Last Admin: 10/04/16 10:44 Dose: 12.5 mg Pantoprazole Sodium (Protonix Ec Tab) 40 mg PO DAILY [facility] Last Admin: 10/04/16 10:44 Dose: 40 mg Ranolazine (Ranexa) 500 mg PO BID [facility] Last Admin: 10/04/16 17:44 Dose: 500 mg Rosuvastatin Calcium (Crestor) 20 mg PO HS [facility] Last Admin: 10/04/16 21:54 Dose: 20 mg - Labs Labs: 10/05/16 06:15 10/05/16 06:15 PT 13.8 SECONDS (9.7-12.2) H 09/16/16 20:54 INR 1.2 09/16/16 20:54 APTT 34 SECONDS (21-34) 09/16/16 20:54 - Constitutional Appears: Non-toxic, No Acute Distress - ENT Exam ENT Exam: Mucous Membranes Moist - Respiratory Exam Respiratory Exam: Clear to Ausculation Bilateral, NORMAL BREATHING PATTERN. absent: Prolonged Expiratory Phase, Rales, Rhonchi, Wheezes - Cardiovascular Exam Cardiovascular Exam: REGULAR RHYTHM, +S1, +S2 - GI/Abdominal Exam GI & Abdominal Exam: Soft, Normal Bowel Sounds. absent: Tenderness, Diminished Bowel Sounds, Hernia, Hypoactive Bowel Sounds - Extremities Exam Extremities Exam: Normal Capillary Refill, Normal Inspection - Neurological Exam Neurological Exam: Alert, Awake, Oriented x3 - Psychiatric Exam Psychiatric exam: Normal Affect, Normal Mood - Skin Skin Exam: Dry, Intact, Normal Color, Warm Assessment and Plan - Assessment and Plan (Free Text) Assessment: Hemoptysis Resolved. No more episodes in hospital. 40ml red blood reported at care home per ED note. Dr. Ross and Dario consulted, help appreciated. CXR showed RUL infiltrate. Procalcitonin level low. Rocephin 1gm IVPB Q12h started 09/17, patient needs to have either 2g daily or 1g q12H until 10/08, per Dr. Bishop. CT angio showed RUL pneumonia (see full report). Quantiferon gold test negative. AFB stain negative. Pancytopenia Chronic. Standard neutropenic precautions. Heme/onc dr. Nguyen consulted. Consulted Hemeonc- Dr. Miguel Knutson- As per Dr. Dumont who is working with Dr. Knutson, patient no longer needs isolation IV Ferrlicit. s/p Bone marrow biopsy with Dr. Knutson - Occasional megakaryocytic atypia and erythroid megaloblastoid changes. Nonspecific and non diagnostic. Right foot infection Podiatry Dr. Ramirez consulted, help appreciated. Left arm swelling Venous doppler showed left arm cephalic vein thrombosis. Vascular Dr. Lugo consulted, help appreciated. Symptomatic treatment for now. DM Lantus 10U SC HS RISS, accucheck. Prophylactic measure Protonix PO. SCD and HepSQ contraindicated. Management per Dr. Ramírez. DC Planning- will discharge patient to [facility]. <Santiago Ramírez S - Last Filed: 10/05/16 20:10> Objective - Vital Signs/Intake and Output Vital Signs (last 24 hours): Temp Pulse Resp BP Pulse Ox 97.3 F L 78 20 136/64 98 10/05/16 16:00 10/05/16 16:00 10/05/16 16:00 10/05/16 16:00 10/05/16 16:00 Intake and Output: 10/05/16 10/06/16 18:59 06:59 Intake Total 400 Output Total 300 Balance 100 - Medications Medications: Current Medications Aspirin (Aspirin) 325 mg PO DAILY [facility] Last Admin: 10/05/16 11:15 Dose: 325 mg Epoetin Gunnar (Procrit) 10,000 unit SC TTS [facility] Stop: 10/09/16 10:01 Last Admin: 10/04/16 17:55 Dose: 10,000 unit Folic Acid (Folic Acid) 1 mg PO DAILY [facility] Last Admin: 10/05/16 11:16 Dose: 1 mg Ceftriaxone Sodium 1 gm/ (Sodium Chloride) 100 mls @ 200 mls/hr IVPB Q12H [facility] Last Admin: 10/05/16 11:16 Dose: 200 mls/hr Insulin Glargine (Lantus) 10 unit SC HS [facility] Last Admin: 10/04/16 22:03 Dose: 10 units Insulin Human Regular (Novolin R) 0 unit SC ACHS [facility] PRN Reason: Protocol Last Admin: 10/05/16 17:10 Dose: 2 unit Isosorbide Mononitrate (Imdur) 30 mg PO DAILY [facility] Last Admin: 10/05/16 11:15 Dose: 30 mg Lactic Acid (Lac-Hydrin 12% Lotion (225 G)) 0 gm EXT BID [facility] Last Admin: 10/05/16 18:38 Dose: Not Given Metoprolol Succinate (Toprol Xl) 12.5 mg PO DAILY [facility] Last Admin: 10/05/16 11:15 Dose: 12.5 mg Pantoprazole Sodium (Protonix Ec Tab) 40 mg PO DAILY [facility] Last Admin: 10/05/16 11:15 Dose: 40 mg Ranolazine (Ranexa) 500 mg PO BID [facility] Last Admin: 10/05/16 18:37 Dose: 500 mg Rosuvastatin Calcium (Crestor) 20 mg PO HS [facility] Last Admin: 10/04/16 21:54 Dose: 20 mg - Labs Labs: 10/05/16 06:15 10/05/16 06:15 PT 13.8 SECONDS (9.7-12.2) H 09/16/16 20:54 INR 1.2 09/16/16 20:54 APTT 34 SECONDS (21-34) 09/16/16 20:54 Assessment and Plan (1) Gastrointestinal hemorrhage Status: Acute (2) Pneumonia Status: Acute (3) Anemia Status: Acute (4) Chest pain Status: Acute (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 Status: Acute (6) Diabetes mellitus, new onset Status: Acute (7) Infected ulcer of skin Status: Acute (8) PAD (peripheral artery disease) Status: Acute (9) Pancytopenia Status: Acute (10) Prophylactic measure Status: Acute (11) CAD (coronary artery disease) Status: Chronic (12) Diabetes mellitus Status: Chronic Attending/Attestation - Attestation I have personally seen and examined this patient.: Yes I have fully participated in the care of the patient.: Yes I have reviewed all pertinent clinical information, including history, physical exam and plan: Yes Notes (Text): 10/05/16 20:10 case seen and discused zuri farmern resident for discharge
[2016-10-05] MEDS: Pantoprazole 40 mg EC Tab PO SCH (11:15)
[2016-10-05] MEDS: Metoprolol Succinate 12.5 mg XL PO SCH (11:15)
[2016-10-05] MEDS: Ranolazine 500 mg Extended Release Tablets PO SCH ×2 (11:16→18:37)
[2016-10-05] MEDS: Ammonium Lactate 12% Lotion (225 g) EXT SCH ×2 (11:18→18:38)
--- NOTE | 2016-10-05 13:00 | CP.PCM.PN ---
Subjective - Date & Time of Evaluation Date of Evaluation: 10/05/16 Time of Evaluation: 07:00 - Subjective Subjective: clinically same Objective - Vital Signs/Intake and Output Vital Signs (last 24 hours): Temp Pulse Resp BP Pulse Ox 98.5 F 80 20 138/67 97 10/05/16 08:00 10/05/16 08:00 10/05/16 08:00 10/05/16 08:00 10/05/16 08:00 Intake and Output: 10/05/16 10/05/16 06:59 18:59 Intake Total 590 Balance 590 - Medications Medications: Current Medications Aspirin (Aspirin) 325 mg PO DAILY [facility] Last Admin: 10/05/16 11:15 Dose: 325 mg Epoetin Gunnar (Procrit) 10,000 unit SC TTS [facility] Stop: 10/09/16 10:01 Last Admin: 10/04/16 17:55 Dose: 10,000 unit Folic Acid (Folic Acid) 1 mg PO DAILY [facility] Last Admin: 10/05/16 11:16 Dose: 1 mg Ceftriaxone Sodium 1 gm/ (Sodium Chloride) 100 mls @ 200 mls/hr IVPB Q12H [facility] Last Admin: 10/05/16 11:16 Dose: 200 mls/hr Insulin Glargine (Lantus) 10 unit SC [facility] Last Admin: 10/04/16 22:03 Dose: 10 units Insulin Human Regular (Novolin R) 0 unit SC ACHS [facility] PRN Reason: Protocol Last Admin: 10/05/16 11:24 Dose: 3 unit Isosorbide Mononitrate (Imdur) 30 mg PO DAILY [facility] Last Admin: 10/05/16 11:15 Dose: 30 mg Lactic Acid (Lac-Hydrin 12% Lotion (225 G)) 0 gm EXT BID [facility] Last Admin: 10/05/16 11:18 Dose: 1 applic Metoprolol Succinate (Toprol Xl) 12.5 mg PO DAILY [facility] Last Admin: 10/05/16 11:15 Dose: 12.5 mg Pantoprazole Sodium (Protonix Ec Tab) 40 mg PO DAILY [facility] Last Admin: 10/05/16 11:15 Dose: 40 mg Ranolazine (Ranexa) 500 mg PO BID [facility] Last Admin: 10/05/16 11:16 Dose: 500 mg Rosuvastatin Calcium (Crestor) 20 mg PO HS [facility] Last Admin: 10/04/16 21:54 Dose: 20 mg - Labs Labs: 10/05/16 06:15 10/05/16 06:15 PT 13.8 SECONDS (9.7-12.2) H 09/16/16 20:54 INR 1.2 09/16/16 20:54 APTT 34 SECONDS (21-34) 09/16/16 20:54 - Constitutional Appears: Well - Head Exam Head Exam: ATRAUMATIC, NORMAL INSPECTION, NORMOCEPHALIC - Eye Exam Eye Exam: EOMI, Normal appearance, PERRL Pupil Exam: NORMAL ACCOMODATION, PERRL - ENT Exam ENT Exam: Mucous Membranes Moist, Normal Exam - Neck Exam Neck Exam: Full ROM, Normal Inspection. 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
--- NOTE | 2016-10-05 13:00 | CP.PCM.PN ---
Subjective - Date & Time of Evaluation Date of Evaluation: 10/05/16 Time of Evaluation: 12:00 - Subjective Subjective: No complaints. Bone marrow suggestive of MDS Given Neupogen and Procrit yesterday Objective - Vital Signs/Intake and Output Vital Signs (last 24 hours): Temp Pulse Resp BP Pulse Ox 98.5 F 80 20 138/67 97 10/05/16 08:00 10/05/16 08:00 10/05/16 08:00 10/05/16 08:00 10/05/16 08:00 Intake and Output: 10/05/16 10/05/16 06:59 18:59 Intake Total 590 Balance 590 - Medications Medications: Current Medications Aspirin (Aspirin) 325 mg PO DAILY [facility] Last Admin: 10/05/16 11:15 Dose: 325 mg Epoetin Gunnar (Procrit) 10,000 unit SC TTS [facility] Stop: 10/09/16 10:01 Last Admin: 10/04/16 17:55 Dose: 10,000 unit Folic Acid (Folic Acid) 1 mg PO DAILY [facility] Last Admin: 10/05/16 11:16 Dose: 1 mg Ceftriaxone Sodium 1 gm/ (Sodium Chloride) 100 mls @ 200 mls/hr IVPB Q12H [facility] Last Admin: 10/05/16 11:16 Dose: 200 mls/hr Insulin Glargine (Lantus) 10 unit SC HS [facility] Last Admin: 10/04/16 22:03 Dose: 10 units Insulin Human Regular (Novolin R) 0 unit SC ACHS [facility] PRN Reason: Protocol Last Admin: 10/05/16 11:24 Dose: 3 unit Isosorbide Mononitrate (Imdur) 30 mg PO DAILY [facility] Last Admin: 10/05/16 11:15 Dose: 30 mg Lactic Acid (Lac-Hydrin 12% Lotion (225 G)) 0 gm EXT BID [facility] Last Admin: 10/05/16 11:18 Dose: 1 applic Metoprolol Succinate (Toprol Xl) 12.5 mg PO DAILY [facility] Last Admin: 10/05/16 11:15 Dose: 12.5 mg Pantoprazole Sodium (Protonix Ec Tab) 40 mg PO DAILY [facility] Last Admin: 10/05/16 11:15 Dose: 40 mg Ranolazine (Ranexa) 500 mg PO BID [facility] Last Admin: 10/05/16 11:16 Dose: 500 mg Rosuvastatin Calcium (Crestor) 20 mg PO HS [facility] Last Admin: 10/04/16 21:54 Dose: 20 mg - Labs Labs: 10/05/16 06:15 10/05/16 06:15 PT 13.8 SECONDS (9.7-12.2) H 09/16/16 20:54 INR 1.2 09/16/16 20:54 APTT 34 SECONDS (21-34) 09/16/16 20:54 - Head Exam Head Exam: ATRAUMATIC - Eye Exam Eye Exam: Normal appearance - ENT Exam ENT Exam: Mucous Membranes Dry - Respiratory Exam Respiratory Exam: NORMAL BREATHING PATTERN - Cardiovascular Exam Cardiovascular Exam: +S1, +S2 - GI/Abdominal Exam GI & Abdominal Exam: Normal Bowel Sounds - Extremities Exam Extremities Exam: Normal Inspection Assessment and Plan (1) Pancytopenia Assessment & Plan: bone marrow suggestive of MDS s/p Neupogen and Procrit Neutropenia resolved, H/H improved outpatient f/u Status: Acute
--- NOTE | 2016-10-05 15:03 | CP.PCM.PN ---
Subjective - Date & Time of Evaluation Date of Evaluation: 10/05/16 Time of Evaluation: 09:00 - Subjective Subjective: No complaints. Bone marrow suggestive of MDS Objective - Vital Signs/Intake and Output Vital Signs (last 24 hours): Temp Pulse Resp BP Pulse Ox 98.5 F 80 20 138/67 97 10/05/16 08:00 10/05/16 08:00 10/05/16 08:00 10/05/16 08:00 10/05/16 08:00 Intake and Output: 10/05/16 10/05/16 06:59 18:59 Intake Total 590 Balance 590 - Medications Medications: Current Medications Aspirin (Aspirin) 325 mg PO DAILY [facility] Last Admin: 10/05/16 11:15 Dose: 325 mg Epoetin Gunnar (Procrit) 10,000 unit SC TTS [facility] Stop: 10/09/16 10:01 Last Admin: 10/04/16 17:55 Dose: 10,000 unit Folic Acid (Folic Acid) 1 mg PO DAILY [facility] Last Admin: 10/05/16 11:16 Dose: 1 mg Ceftriaxone Sodium 1 gm/ (Sodium Chloride) 100 mls @ 200 mls/hr IVPB Q12H [facility] Last Admin: 10/05/16 11:16 Dose: 200 mls/hr Insulin Glargine (Lantus) 10 unit SC HS [facility] Last Admin: 10/04/16 22:03 Dose: 10 units Insulin Human Regular (Novolin R) 0 unit SC ACHS [facility] PRN Reason: Protocol Last Admin: 10/05/16 11:24 Dose: 3 unit Isosorbide Mononitrate (Imdur) 30 mg PO DAILY [facility] Last Admin: 10/05/16 11:15 Dose: 30 mg Lactic Acid (Lac-Hydrin 12% Lotion (225 G)) 0 gm EXT BID [facility] Last Admin: 10/05/16 11:18 Dose: 1 applic Metoprolol Succinate (Toprol Xl) 12.5 mg PO DAILY [facility] Last Admin: 10/05/16 11:15 Dose: 12.5 mg Pantoprazole Sodium (Protonix Ec Tab) 40 mg PO DAILY [facility] Last Admin: 10/05/16 11:15 Dose: 40 mg Ranolazine (Ranexa) 500 mg PO BID [facility] Last Admin: 10/05/16 11:16 Dose: 500 mg Rosuvastatin Calcium (Crestor) 20 mg PO HS [facility] Last Admin: 10/04/16 21:54 Dose: 20 mg - Labs Labs: 10/05/16 06:15 10/05/16 06:15 PT 13.8 SECONDS (9.7-12.2) H 09/16/16 20:54 INR 1.2 09/16/16 20:54 APTT 34 SECONDS (21-34) 09/16/16 20:54 - Constitutional Appears: Non-toxic, Chronically Ill - Head Exam Head Exam: NORMOCEPHALIC - Eye Exam Eye Exam: PERRL. absent: Scleral icterus - ENT Exam ENT Exam: Mucous Membranes Dry - Neck Exam Neck Exam: absent: Lymphadenopathy - Respiratory Exam Respiratory Exam: Decreased Breath Sounds - Cardiovascular Exam Cardiovascular Exam: REGULAR RHYTHM - GI/Abdominal Exam GI & Abdominal Exam: Distended, Soft. absent: Tenderness - Rectal Exam Rectal Exam: Deferred Assessment and Plan (1) Diabetes mellitus with ulcer of ankle Status: Acute (2) Infected ulcer of skin Status: Acute (3) PAD (peripheral artery disease) Status: Acute (4) CAD (coronary artery disease) Status: Chronic
[2016-10-05 17:38] VITALS: BP 136/64; PULSE 78; TEMP 97.3; O2SAT 98
== END 2016-10-05 20:25 | DRG 987 ==
LOC: C.ER 19:59 → C.9E 23:28 → C.5T 09-17 02:34 → C.3T 09-17 14:21
PROVIDERS: ADMIT Internal Medicine Nephrology; ATTEND Internal Medicine Nephrology
PROC: 0BB48ZX Excision of Right Upper Lobe Bronchus, Via Natural or Artificial Opening Endoscopic, Diagnostic (ICD-10-PCS; 2016-09-19)
PROC: 0B9C8ZX Drainage of Right Upper Lung Lobe, Via Natural or Artificial Opening Endoscopic, Diagnostic (ICD-10-PCS; principal; 2016-09-19 14:00)
PROC: 07DR3ZX Extraction of Iliac Bone Marrow, Percutaneous Approach, Diagnostic (ICD-10-PCS; 2016-09-26)
DX: K92.2 Gastrointestinal hemorrhage, unspecified (principal); J18.9 Pneumonia, unspecified organism; D61.818 Other pancytopenia; E11.22 Type 2 diabetes mellitus with diabetic chronic kidney disease; E11.51 Type 2 diabetes mellitus with diabetic peripheral angiopathy without gangrene; E11.622 Type 2 diabetes mellitus with other skin ulcer; I12.9 Hypertensive chronic kidney disease with stage 1 through stage 4 chronic kidney disease, or unspecified chronic kidney disease; D50.9 Iron deficiency anemia, unspecified; F10.10 Alcohol abuse, uncomplicated; L97.319 Non-pressure chronic ulcer of right ankle with unspecified severity; I82.619 Acute embolism and thrombosis of superficial veins of unspecified upper extremity; N18.9 Chronic kidney disease, unspecified; E78.00 Pure hypercholesterolemia, unspecified; M79.632 Pain in left forearm; I25.10 Atherosclerotic heart disease of native coronary artery without angina pectoris; Z95.5 Presence of coronary angioplasty implant and graft; Z87.442 Personal history of urinary calculi; Z87.891 Personal history of nicotine dependence; Z95.820 Peripheral vascular angioplasty status with implants and grafts

== ENCOUNTER 2016-12-01 01:22 | Inpatient (IN) | payer OTHER, MEDICAID ==
[2016-12-01] MEDS ORDERED: Albuterol-Ipratrop 3 mg / 0.5 (3 ml) UD ONE (02:03)
--- NOTE | 2016-12-01 02:17 | C.PDOC ---
History Of Present Illness 71 year old male who presents to the ER with a complaint of SOB; patient states he felt hot at home. Denies fever, chills, or chest pain. Chief Complaint (Nursing): Shortness Of Breath History Per: Patient History/Exam Limitations: no limitations Onset/Duration Of Symptoms: Hrs Current Symptoms Are (Timing): Still Present Initiating Event: Other (Heat) Current Respiratory Medications: See Home Med List Associated Symptoms: denies: Fever, Chills, Chest Pain Past Medical History Reviewed: Historical Data, Nursing Documentation, Vital Signs Vital Signs: Last Vital Signs Temp 98.9 F 12/01/16 04:32 Pulse 132 H 12/01/16 05:15 Resp 29 H 12/01/16 05:15 BP 114/67 12/01/16 05:15 Pulse Ox 97 12/01/16 05:15 - Medical History PMH: Anemia, HTN, Hypercholesterolemia, Kidney Stones, Chronic Kidney Disease Surgical History: Coronary Stent - [facility] Procedures CENTRAL VENOUS CATHETER PLACEMENT WITH GUIDANCE (10/04/14) CORONAR ARTERIOGR-2 CATH (05/28/12) DESTRUCTION OF DUODENUM, ENDO (08/28/16) DILATE OF R POST TIB ART WITH DRUG-ELUT INTRA, PERC APPROACH (08/28/16) DILATION OF RIGHT PERONEAL ARTERY, PERCUTANEOUS APPROACH (08/28/16) DRAINAGE OF RIGHT UPPER LUNG LOBE, ENDO, DIAGN (09/16/16) EXCISION OF R FOOT SUBCU/FASCIA, OPEN APPROACH (08/28/16) EXCISION OF RIGHT TIBIA, OPEN APPROACH, DIAGNOSTIC (08/28/16) EXCISION OF RIGHT UPPER LOBE BRONCHUS, ENDO, DIAGN (09/16/16) EXCISION OF SIGMOID COLON, ENDO, DIAGN (08/28/16) EXCISION OF STOMACH, ENDO, DIAGN (08/28/16) EXTRACTION OF ILIAC BONE MARROW, PERC APPROACH, DIAGN (09/16/16) INSERTION OF INFUSION DEV INTO SUP VENA CAVA, PERC APPROACH (08/28/16) INSERTION OF ONE VASCULAR STENT (08/05/12) INSERTION OF TWO VASCULAR STENTS (05/28/12) INSRT OF DRUG-ELUTING CORON ARTERY STENTS(S) (08/05/12) LEFT HEART CARDIAC CATH (05/28/12) PERCUTANEOUS TRANSLUMINAL CORONARY ANGIOPLASTY [PTCA] (08/05/12) PROCEDURE ON SINGLE VESSEL (08/05/12) PROCEDURE ON TWO VESSELS (05/28/12) TRANSFUSE NONAUT RED BLOOD CELLS IN PERIPH VEIN, PERC (08/28/16) Family History: States: Unknown Family Hx - Social History Hx Tobacco Use: Yes Hx Alcohol Use: No (stopped) Hx Substance Use: No - Immunization History Hx Tetanus Toxoid Vaccination: No Hx Influenza Vaccination: No Hx Pneumococcal Vaccination: No Review Of Systems Constitutional: Negative for: Fever, Chills Cardiovascular: Negative for: Chest Pain Respiratory: Positive for: Shortness of Breath Physical Exam - Physical Exam Appears: Non-toxic Skin: Normal Color, Warm, Dry Head: Atraumatic, Normacephalic Oral Mucosa: Moist Chest: Symmetrical, No Tenderness Cardiovascular: Rhythm Regular, No Murmur Respiratory: Decreased Breath Sounds, No Rales, No Rhonchi, Wheezing (Bilateral) Gastrointestinal/Abdominal: Soft, No Tenderness Extremity: Normal ROM (x4), Other (Healing ulcer to dorsum of right ankle with clean base) Neurological/Psych: Oriented x3, Normal Speech, Normal Cognition ED Course And Treatment - Laboratory Results Result Diagrams: 12/01/16 02:35 12/01/16 02:35 O2 Sat by Pulse Oximetry: 94 (Room air) Pulse Ox Interpretation: Normal - Other Rad CXR X-Ray: Viewed By Me, Read By Radiologist Interpretation: EXAM: XR Chest, 1 View. CLINICAL HISTORY: 71 years (approx. age) old, unknown; Pain; Chest pain. TECHNIQUE: Frontal view of the chest. COMPARISON: No relevant prior studies available. FINDINGS: The cardiomediastinal silhouette is unremarkable. Interstitial thickening is identified bilaterally. This is most prominent within the right lung apex, likely. chronic. No subdiaphragmatic free air or pneumothorax. The trachea is midline. IMPRESSION: Findings consistent with chronic interstitial lung disease, without focal infiltrate or effusion Progress Note: Blood work and EKG ordered. Dr. Graham, medical records custodian environmental technical officer, was notified about patient and will come see patient in ER. Disposition Discussed With : Santiago Ramírez Doctor Will See Patient In The: Hospital Counseled Patient/Family Regarding: Diagnosis - Disposition Disposition: HOSPITALIZED Disposition Time: 03:59 Condition: GUARDED - POA Present On Arrival: None - Clinical Impression Clinical Impression: Dyspnea, Pneumonia, Sepsis, Non-STEMI (non-ST elevated myocardial infarction) - Scribe Statement The provider has reviewed the documentation as recorded by the Scribe Zeferino Feldman All medical record entries made by the Scribe were at my direction and personally dictated by me. I have reviewed the chart and agree that the record accurately reflects my personal performance of the history, physical exam, medical decision making, and the department course for this patient. I have also personally directed, reviewed, and agree with the discharge instructions and disposition.
[2016-12-01 02:25] LABS: ARTERIAL BLOOD GAS MODE ON NEB TX; DRAW SITE LB
[2016-12-01] MEDS ORDERED: (Novolin R) Insulin Human Regular 100 units/ml vial IV STA ×2 (02:33→04:51)
[2016-12-01] MEDS ORDERED: Nitroglycerin 2% Ointment Foilpak UD TOP STA (02:36)
[2016-12-01 02:39] LABS: BASO % 1.3 % (0.0-2.0); EOS % 0.2 % (0.0-4.0); HEMATOCRIT 26.9 % (35.0-51.0); LYMPH # 0.5 K/uL (1.0-4.3); LYMPH % 46.4 % (20.0-40.0); MEAN CELL VOLUME 80.4 fL (80.0-94.0); MEAN CORPUSCULAR HGB CONC 32.3 g/dL (33.0-37.0); MEAN PLATELET VOLUME 9.7 fL (7.2-11.7); MONO % 2.2 % (0.0-10.0); NRBC % 1.2 % (0.0-2.0)
[2016-12-01] MEDS ORDERED: (Novolin R) Insulin Human Regular 100 units/ml vial ONE (02:45)
[2016-12-01] MEDS ORDERED: Nitroglycerin 2% Ointment Foilpak UD TOP ONE (02:46)
[2016-12-01 02:50] LABS: CHLORIDE 101 mmol/L (98-107)
[2016-12-01] MEDS ORDERED: (Novolin R) Insulin Human Regular 100 units/ml vial SC ONE (02:50)
[2016-12-01 02:51] LABS: POTASSIUM 4.6 mmol/L (3.6-5.2); SODIUM 138 mmol/L (132-148)
[2016-12-01 02:53] LABS: ALB/GLOB RATIO 0.9 (1.0-2.1); ALKALINE PHOSPHATASE 137 U/L (38-126); AST/SGOT 46 U/L (17-59); BILIRUBIN,TOTAL 0.7 mg/dL (0.2-1.3); CARBON DIOXIDE 19 mmol/L (22-30); GFR AFRICAN-AMERICAN 56; TOTAL PROTEIN 7.5 g/dL (6.3-8.3); WHITE BLOOD COUNT 1.2 K/uL (4.8-10.8)
[2016-12-01 02:54] LABS: ALT/SGPT 39 U/L (21-72); BLOOD UREA NITROGEN 37 mg/dL (9-20); CALCIUM 9.2 mg/dl (8.6-10.4)
[2016-12-01 02:58] LABS: INR 1.2
[2016-12-01 03:12] LABS: GLUCOSE,RANDOM 469 mg/dL (75-110)
[2016-12-01] MEDS ORDERED: Sodium Chloride 0.9% 500 ML IV ONE ×2 (03:34→03:35)
[2016-12-01] MEDS ORDERED: cefTRIAXone IV 1 gm in Dextros 50 ML IVPB ONE ×2 (03:37→03:45)
[2016-12-01] MEDS ORDERED: Azithromycin 500mg/250ML NS 500 MG/250 ML BAG IV STA (03:38)
[2016-12-01] MEDS ORDERED: Sodium Chloride 0.9% 1,000 ML IV SCH (04:00)
[2016-12-01] MEDS ORDERED: Azithromycin 500mg/250ML NS 500 MG/250 ML BAG IVPB ONE (04:13)
[2016-12-01 04:34] LABS: RBC URINE 1 /hpf (0-3); URINE BILIRUBIN NEGATIVE (NEGATIVE); URINE BLOOD NEGATIVE (NEGATIVE); URINE COLOR Amber (YELLOW); URINE GLUCOSE (UA) 3+ mg/dL (Normal); URINE KETONE NEGATIVE (NEGATIVE); URINE LEUKOCYTE ESTERASE NEG Leu/uL (Negative); URINE PROTEIN 1+ mg/dL (NEGATIVE); WBC URINE 2 /hpf (0-5)
--- NOTE | 2016-12-01 06:25 | CP.PCM.CON ---
History of Present Illness - History of Present Illness History of Present Illness: 71 male with history of CAD, ?COPD, DM, HTN, CKD came to ER complaining of SOB, no chest pain, no fever, patient poor historian, was started on BIPAP in ER events reviewed Review of Systems - Review of Systems Systems not reviewed;Unavailable: Uncooperative Past Patient History - Infectious Disease Hx of Infectious Diseases: None - Tetanus Immunizations Tetanus Immunization: Unknown - Past Medical History & Family History Past Medical History?: No - Past Social History Smoking Status: Heavy Smoker > 10 Cigarettes Daily - CARDIAC Hx Hypercholesterolemia: Yes Hx Hypertension: Yes - PULMONARY Hx Respiratory Disorders: No - NEUROLOGICAL Hx Paralysis: No - HEENT Hx HEENT Problems: No - RENAL Hx Chronic Kidney Disease: Yes Hx Kidney Stones: Yes - ENDOCRINE/METABOLIC Hx Endocrine Disorders: Yes Hx Diabetes Mellitus Type 2: Yes - HEMATOLOGICAL/ONCOLOGICAL Hx Anemia: Yes - INTEGUMENTARY Hx Dermatological Problems: Yes Hx Cellulitis: Yes - MUSCULOSKELETAL/RHEUMATOLOGICAL Hx Musculoskeletal Disorders: Yes Hx Falls: Yes - GASTROINTESTINAL Hx Gastrointestinal Disorders: No - GENITOURINARY/GYNECOLOGICAL Hx Genitourinary Disorders: No - PSYCHIATRIC Hx Substance Use: No - SURGICAL HISTORY Hx Coronary Stent: Yes - ANESTHESIA Hx Anesthesia: Yes Meds Allergies/Adverse Reactions: Allergies Allergy/AdvReac Type Severity Reaction Status Date / Time No Known Allergies Allergy Verified 09/16/16 20:22 - Medications Medications: Current Medications Aspirin (Aspirin) 325 mg PO DAILY [facility] Sodium Chloride (Sodium Chloride 0.9%) 1,000 mls @ 30 mls/hr IV .Q24H [facility] Last Admin: 12/01/16 04:09 Dose: 30 mls/hr Ceftriaxone Sodium (Rocephin Iv 1 Gm Duplex) 50 mls @ 100 mls/hr IVPB Q24H [facility] Azithromycin (Zithromax 500mg In Ns Addvantage) 500 mg in 250 mls @ 167 mls/hr IVPB Q24H [facility] Insulin Human Regular (Novolin R) 0 unit SC Q6H [facility] PRN Reason: Protocol Nitroglycerin (Nitro-Bid 2% Oint) 1 ea TOP Q6 [facility] Physical Exam - Head Exam Head Exam: ATRAUMATIC, NORMOCEPHALIC - Eye Exam Eye Exam: Normal appearance Pupil Exam: PERRL - ENT Exam ENT Exam: Mucous Membranes Moist - Neck Exam Neck exam: Positive for: Normal Inspection - Respiratory Exam Respiratory Exam: Rhonchi - Cardiovascular Exam Cardiovascular Exam: Tachycardia - GI/Abdominal Exam GI & Abdominal Exam: Normal Bowel Sounds - Extremities Exam Extremities exam: Positive for: pedal edema - Neurological Exam Neurological exam: Alert Results - Vital Signs Recent Vital Signs: Last Vital Signs Temp 98.9 F 12/01/16 04:32 Pulse 132 H 12/01/16 05:15 Resp 29 H 12/01/16 05:15 BP 114/67 12/01/16 05:15 Pulse Ox 94 L 12/01/16 05:26 - Labs Result Diagrams: 12/01/16 02:35 12/01/16 02:35 Labs: Laboratory Results - last 24 hr 12/01/16 12/01/16 12/01/16 04:12 04:27 05:58 POC Glucose (mg/dL) 485 H* 421 H* Urine Color [place]ulu Urine Clarity Hazy Urine pH 5.0 Ur Specific [place] 1.022 Urine Protein 1+ H Urine Glucose (UA) 3+ H Urine Ketones Negative Urine Blood Negative Urine Nitrate Negative Urine Bilirubin Negative Urine Urobilinogen 2.0 Ur Leukocyte Esterase Neg Urine WBC (Auto) 2 Urine RBC (Auto) 1 Ur Squamous Epith Cells < 1 Hyaline Casts 6-10 H Assessment & Plan - Assessment and Plan (Free Text) Assessment: A/P Respiratory insufficiency, ?pneumonia, sepsis, ?CHF, CAD, NSTEMI, ?COPD, HTN, DM , renal insufficiency - BIPAP, intubation if worsen - Asprin, nitrates - Cardiac enzymes - Cardiology consult as per PMD - Antibiotics - Bronchodilators - FS - CT head Critical care 40 min
[2016-12-01 06:46] LABS: HEMATOCRIT 29.2 % (35.0-51.0); LYMPH # 0.7 K/uL (1.0-4.3); MEAN CORPUSCULAR HGB CONC 29.8 g/dL (33.0-37.0)
[2016-12-01] MEDS: (Novolin R) Insulin Human Regular 100 units/ml vial SC SCH ×3 (06:48→18:13)
[2016-12-01 07:01] LABS: ALB/GLOB RATIO 0.8 (1.0-2.1); BILIRUBIN,TOTAL 1.1 mg/dL (0.2-1.3); CALCIUM 8.4 mg/dl (8.6-10.4); MAGNESIUM 2.3 mg/dL (1.6-2.3); PHOSPHOROUS 7.9 mg/dL (2.5-4.5); POTASSIUM 4.9 mmol/L (3.6-5.2); TOTAL PROTEIN 6.5 g/dL (6.3-8.3)
[2016-12-01 07:26] LABS: BASO % 1.3 % (0.0-2.0); EOS % 0.5 % (0.0-4.0); LYMPH % 43.9 % (20.0-40.0); MEAN CELL VOLUME 86.4 fL (80.0-94.0); MEAN CORPUSCULAR HEMOGLOBIN 25.8 pg (27.0-31.0); MEAN PLATELET VOLUME 10.4 fL (7.2-11.7); MONO % 2.5 % (0.0-10.0); RED CELL DISTRIBUTION WIDTH 25.2 % (11.5-14.5); TROPONIN I 3.11 ng/mL (0.00-0.120)
[2016-12-01 07:31] LABS: WHITE BLOOD COUNT 1.6 K/uL (4.8-10.8)
[2016-12-01] MEDS: Albuterol-Ipratrop 3 mg / 0.5 (3 ml) UD INH SCH ×3 (08:08→20:24)
[2016-12-01] MEDS ORDERED: Insulin Human Regular 100 UNIT in Sodium Chloride 0.9% 99 ML IV SCH (08:45)
[2016-12-01] MEDS: MethylPREDNISolone 40 mg Vial IVP SCH ×2 (09:49→16:00)
[2016-12-01] MEDS: Heparin25000 units/250ml 1/2NS 25,000 UNITS/250 ML BAG IV PRN (11:06)
[2016-12-01] MEDS: Nitroglycerin 2% Ointment Foilpak UD TOP SCH ×2 (11:34→17:18)
--- NOTE | 2016-12-01 14:18 | CP.PCM.HP ---
History of Present Illness - History of Present Illness History of Present Illness: 71-year-old male patient with past medical history of diabetes, hypertension, CAD S/P stent, COPD, CKD, pancytopenia with severe neutropenia secondary to MDS presented to the emergency department with complaint of shortness of breath, hyperglycemia, increased troponin levels. Patient has been recently started on decitabine for MDS with resolution of thrombocytopenia and decreased requirement for PRBC transfusion. Recently patient stopped taking antidiabetic meds. No fever, nausea, vomiting. No chest pain, dizziness, lightheadedness, diaphoresis. No recent history of trauma. Present on Admission - Present on Admission Any Indicators Present on Admission: No Past Patient History - Infectious Disease Hx of Infectious Diseases: None - Tetanus Immunizations Tetanus Immunization: Unknown - Past Medical History & Family History Past Medical History?: No - Past Social History Smoking Status: Heavy Smoker > 10 Cigarettes Daily - CARDIAC Hx Hypercholesterolemia: Yes Hx Hypertension: Yes - PULMONARY Hx Respiratory Disorders: No - NEUROLOGICAL Hx Paralysis: No - HEENT Hx HEENT Problems: No - RENAL Hx Chronic Kidney Disease: Yes Hx Kidney Stones: Yes - ENDOCRINE/METABOLIC Hx Endocrine Disorders: Yes Hx Diabetes Mellitus Type 2: Yes - HEMATOLOGICAL/ONCOLOGICAL Hx Anemia: Yes - INTEGUMENTARY Hx Dermatological Problems: Yes Hx Cellulitis: Yes - MUSCULOSKELETAL/RHEUMATOLOGICAL Hx Musculoskeletal Disorders: Yes Hx Falls: Yes - GASTROINTESTINAL Hx Gastrointestinal Disorders: No - GENITOURINARY/GYNECOLOGICAL Hx Genitourinary Disorders: No - PSYCHIATRIC Hx Substance Use: No - SURGICAL HISTORY Hx Coronary Stent: Yes - ANESTHESIA Hx Anesthesia: Yes Meds Allergies/Adverse Reactions: Allergies Allergy/AdvReac Type Severity Reaction Status Date / Time No Known Allergies Allergy Verified 09/16/16 20:22 Physical Exam - Constitutional Appears: Well - Head Exam Head Exam: ATRAUMATIC, NORMAL INSPECTION, NORMOCEPHALIC - Eye Exam Eye Exam: EOMI, Normal appearance, PERRL Pupil Exam: NORMAL ACCOMODATION, PERRL - ENT Exam ENT Exam: Mucous Membranes Moist, Normal Exam - Neck Exam Neck exam: Positive for: Normal Inspection - Respiratory Exam Respiratory Exam: Decreased Breath Sounds - Cardiovascular Exam Cardiovascular Exam: REGULAR RHYTHM, +S1, +S2 - GI/Abdominal Exam GI & Abdominal Exam: Diminished Bowel Sounds, Soft - Rectal Exam Rectal Exam: Deferred Results - Vital Signs Recent Vital Signs: Last Vital Signs Temp 97.4 F L 12/01/16 08:00 Pulse 112 H 12/01/16 09:20 Resp 24 12/01/16 09:20 BP 97/64 L 12/01/16 09:16 Pulse Ox 95 12/01/16 09:20 - Labs Result Diagrams: 12/07/16 05:59 12/07/16 05:59 Labs: Laboratory Results - last 24 hr 12/01/16 12/01/16 12/01/16 04:12 04:27 05:58 WBC RBC Hgb Hct MCV MCH MCHC RDW Plt Count MPV Neut % (Auto) Lymph % (Auto) [place] % (Auto) Eos % (Auto) Baso % (Auto) Neut # Lymph # [place] # Eos # Baso # Sodium Potassium Chloride Carbon Dioxide Anion Gap BUN Creatinine Est GFR ( Amer) Est GFR (Non-Af Amer) POC Glucose (mg/dL) 485 H* 421 H* Random Glucose Lactic Acid Calcium Phosphorus Magnesium Total Bilirubin AST ALT Alkaline Phosphatase Total Creatine Kinase CK-MB (Mass) Troponin I Troponin I, Quant Total Protein Albumin Globulin Albumin/Globulin Ratio Urine Color Lulu Urine Clarity Hazy Urine pH 5.0 Ur Specific [place] 1.022 Urine Protein 1+ H Urine Glucose (UA) 3+ H Urine Ketones Negative Urine Blood Negative Urine Nitrate Negative Urine Bilirubin Negative Urine Urobilinogen 2.0 Ur Leukocyte Esterase Neg Urine WBC (Auto) 2 Urine RBC (Auto) 1 Ur Squamous Epith Cells < 1 Hyaline Casts 6-10 H 12/01/16 12/01/16 12/01/16 06:36 06:36 06:36 WBC 1.6 L* RBC 3.38 L Hgb 8.7 L Hct 29.2 L MCV 86.4 D MCH 25.8 L MCHC 29.8 L RDW 25.2 H Plt Count 578 H MPV 10.4 Neut % (Auto) 51.8 Lymph % (Auto) 43.9 H [place] % (Auto) 2.5 Eos % (Auto) 0.5 Baso % (Auto) 1.3 Neut # 0.8 L Lymph # 0.7 L [place] # 0.0 Eos # 0.0 Baso # 0.0 Sodium 134 Potassium 4.9 Chloride 103 Carbon Dioxide 12 L Anion Gap 24 H BUN 37 H Creatinine 1.6 H Est GFR ( Amer) 52 Est GFR (Non-Af Amer) 43 POC Glucose (mg/dL) Random Glucose 662 H* D Lactic Acid 6.9 H* Calcium 8.4 L Phosphorus 7.9 H Magnesium 2.3 Total Bilirubin 1.1 AST 108 H D ALT 60 Alkaline Phosphatase 95 Total Creatine Kinase 68 CK-MB (Mass) 5.29 H Troponin I 3.1100 H* Troponin I, Quant 3.1100 H* Total Protein 6.5 Albumin 2.9 L Globulin 3.6 Albumin/Globulin Ratio 0.8 L Urine Color Urine Clarity Urine pH Ur Specific [place] Urine Protein Urine Glucose (UA) Urine Ketones Urine Blood Urine Nitrate Urine Bilirubin Urine Urobilinogen Ur Leukocyte Esterase Urine WBC (Auto) Urine RBC (Auto) Ur Squamous Epith Cells Hyaline Casts 12/01/16 12/01/16 12/01/16 09:56 11:00 12:13 WBC RBC Hgb Hct MCV MCH MCHC RDW Plt Count MPV Neut % (Auto) Lymph % (Auto) [place] % (Auto) Eos % (Auto) Baso % (Auto) Neut # Lymph # [place] # Eos # Baso # Sodium Potassium Chloride Carbon Dioxide Anion Gap BUN Creatinine Est GFR ( Amer) Est GFR (Non-Af Amer) POC Glucose (mg/dL) 376 H 377 H 269 H Random Glucose Lactic Acid Calcium Phosphorus Magnesium Total Bilirubin AST ALT Alkaline Phosphatase Total Creatine Kinase CK-MB (Mass) Troponin I Troponin I, Quant Total Protein Albumin Globulin Albumin/Globulin Ratio Urine Color Urine Clarity Urine pH Ur Specific [place] Urine Protein Urine Glucose (UA) Urine Ketones Urine Blood Urine Nitrate Urine Bilirubin Urine Urobilinogen Ur Leukocyte Esterase Urine WBC (Auto) Urine RBC (Auto) Ur Squamous Epith Cells Hyaline Casts 12/01/16 12/01/16 12:56 14:07 WBC RBC Hgb Hct MCV MCH MCHC RDW Plt Count MPV Neut % (Auto) Lymph % (Auto) [place] % (Auto) Eos % (Auto) Baso % (Auto) Neut # Lymph # [place] # Eos # Baso # Sodium Potassium Chloride Carbon Dioxide Anion Gap BUN Creatinine Est GFR ( Amer) Est GFR (Non-Af Amer) POC Glucose (mg/dL) 281 H 200 H Random Glucose Lactic Acid Calcium Phosphorus Magnesium Total Bilirubin AST ALT Alkaline Phosphatase Total Creatine Kinase CK-MB (Mass) Troponin I Troponin I, Quant Total Protein Albumin Globulin Albumin/Globulin Ratio Urine Color Urine Clarity Urine pH Ur Specific [place] Urine Protein Urine Glucose (UA) Urine Ketones Urine Blood Urine Nitrate Urine Bilirubin Urine Urobilinogen Ur Leukocyte Esterase Urine WBC (Auto) Urine RBC (Auto) Ur Squamous Epith Cells Hyaline Casts Assessment & Plan (1) Acute respiratory failure Status: Acute (2) Anemia Status: Acute (3) Bacteremia due to methicillin resistant Staphylococcus aureus Status: Acute (4) Chest pain Status: Acute (5) Coagulopathy Status: Acute (6) Diabetes mellitus with ulcer of ankle Status: Acute (7) Diabetes mellitus, new onset Status: Acute (8) Dyspnea Status: Acute (9) Gastrointestinal hemorrhage Status: Acute (10) Infected ulcer of skin Status: Acute (11) MDS (myelodysplastic syndrome) Status: Acute (12) Neutropenia Status: Acute (13) Non-STEMI (non-ST elevated myocardial infarction) Status: Acute (14) Non-healing ulcer of foot Status: Acute (15) PAD (peripheral artery disease) Status: Acute (16) Pancytopenia Status: Acute (17) Pneumonia Status: Acute (18) Pneumonia Status: Acute (19) Prophylactic measure Status: Acute (20) Sepsis Status: Acute (21) CAD (coronary artery disease) Status: Chronic (22) CHF (congestive heart failure) Status: Chronic (23) Diabetes mellitus Status: Chronic - Assessment and Plan (Free Text) Plan: Labs and meds reviewed Transfusion if needed Cardio consult On BiPAP Closely monitoring Continue as ordered Monitor labs Antibiotics Aspirin DuoNeb Lopressor Solu-Medrol Follow-up with labs
--- NOTE | 2016-12-01 16:34 | CT ---
PROCEDURE: CT HEAD WITHOUT CONTRAST. HISTORY: confusion COMPARISON: None available. TECHNIQUE: Axial computed tomography images were obtained through the head/brain without intravenous contrast. Radiation dose: Total exam DLP = 1272.70 mGy-cm. This CT exam was performed using one or more of the following dose reduction techniques: Automated exposure control, adjustment of the mA and/or kV according to patient size, and/or use of iterative reconstruction technique. FINDINGS: HEMORRHAGE: No acute parenchymal, subarachnoid or extra-axial hemorrhage. BRAIN: Mild chronic periventricular white matter ischemic changes with more localized chronic infarct changes in the right frontal lobe and right basal ganglia/coronal radiata junction. In addition, there also appear to be a few small chronic appearing subcortical infarcts scattered about both cerebral hemispheres, both basal nuclei as well as lisette. No obvious parenchymal nor extra-axial mass or collection seen on this noncontrast study. Minor calcifications both carotid siphons Mild mild moderate VENTRICLES: No evidence of obstructive hydrocephalus CALVARIUM: There are no acute calvarial fractures. PARANASAL SINUSES: Unremarkable as visualized. No significant inflammatory changes. MASTOID AIR CELLS: Mild sclerosis/under pneumatization right mastoid air complex which is also partially opacified. Cerumen is present within both external auditory canals. OTHER FINDINGS: None. IMPRESSION: No acute intracranial hemorrhage. Mild chronic periventricular white matter ischemic changes with on more discrete chronic appearing right frontal and right basal ganglia at infarct. Scattered subcortical infarcts within few small lacunar type infarcts left basal ganglia and brainstem. Mild mild moderate Partial opacification mildly underpneumatized/sclerotic right mastoid air complex.
[2016-12-01] MEDS ORDERED: Morphine 4 MG/ML VIAL IV STA (21:24)
--- NOTE | 2016-12-01 21:36 | CP.CCUPN ---
CCU Subjective - Physician Review Events Since Last Encounter (Free Text): 12/01/16 21:36 Patient is a 71-year-old male with history of CAD COPD of diabetes hypertension chronic renal insufficiency recurrent cellulitis heel ulcer peripheral vascular disease history of CAD stent in the past admitted to the hospital with the chest pain, shortness of breath. During the ICU stay for the last 24 hours patient started having elevated high troponin level. He was on BiPAP. The day he was doing okay, currently he is having increasing shortness of breath. Tachycardia tachypnea and hypoxia noted. Immediately patient was placed on BiPAP at this time. Lasix 20 mg IV morphine 2 mg, heparin drip started. Blood pressure is on the low side. Elevated highly troponin noted. Cardiogenic valuation called. Possible cardiac catheterization. Patient is in most likely cardiogenic dysfunction, suspected coverage neck shock. On BiPAP responding. We'll closely monitor the patient. CCU Objective - Vital Signs / Intake & Output Vital Signs (Last 4 hours): Vital Signs Temp Pulse Resp BP Pulse Ox 12/01/16 21:29 115 H 22 135/84 100 12/01/16 21:25 122 H 25 H 163/101 H 12/01/16 21:00 104 H 24 106/65 91 L 12/01/16 20:00 98.2 F 108 H 29 H 109/70 94 L 12/01/16 19:16 113 H 27 H 98/57 L 94 L 12/01/16 19:10 112 H 24 96 12/01/16 19:00 109 H 24 96 12/01/16 18:50 107 H 18 94 L 12/01/16 18:40 109 H 21 95 12/01/16 18:30 112 H 25 H 96 12/01/16 18:20 110 H 24 96 12/01/16 18:16 109 H 18 113/73 95 12/01/16 18:10 106 H 20 95 12/01/16 18:00 109 H 24 94 L 12/01/16 17:50 113 H 21 95 12/01/16 17:40 113 H 24 95 Intake and Output (Last 8hrs): Intake & Output 12/01/16 12/01/16 12/01/16 06:59 14:59 22:59 Intake Total 30 1104.8 792.9 Output Total 30 110 175 Balance 0 994.8 617.9 Intake: IV 28.0 194 Intake, IV Amount 30 296.8 288.9 Left Hand 38.8 60.9 Right 18 15 Right Forearm 3 Right PICC 30 240 210 Oral 0 780 310 Output: Urine 30 110 175 Urethral (Powell) 30 110 175 Stool 0 0 Other: Voiding Method Indwelling Catheter # Bowel Movements 3 - Medications Active Medications: Active Medications Generic Name Dose Route Start Last Admin Trade Name Freq PRN Reason Stop Dose Admin Albuterol/Ipratropium 3 ml 12/01/16 08:00 12/01/16 20:24 Duoneb 3 Mg/0.5 Mg (3 Ml) Ud INH Not Given RQ6 LOUANN Aspirin 325 mg 12/01/16 10:00 12/01/16 09:49 Aspirin PO 325 mg DAILY LOUANN Administration Famotidine 20 mg 12/01/16 10:00 12/01/16 09:49 Pepcid IVP 20 mg DAILY LOUANN Administration Ceftriaxone Sodium 50 mls @ 100 mls/hr 12/02/16 03:00 Rocephin Iv 1 Gm Duplex IVPB Q24H LOUANN Azithromycin 500 mg in 250 mls @ 167 mls/hr 12/02/16 04:30 Zithromax 500mg In Ns Addvantage IVPB Q24H LOUANN Heparin Sodium/Sodium Chloride 25,000 units in 250 mls @ 7.947 mls/hr 10:04 12/01/16 17:00 Heparin 43346 Units/250ml 1/2 Normal Saline IV 16 units/kg/hr .Q24H PRN 10.596 mls/hr PROTOCOL Titration Protocol 12 UNITS/KG/HR Methylprednisolone 40 mg 12/01/16 22:00 Solu-Medrol IVP Q12 LOUANN Metoprolol Tartrate 2.5 mg 12/01/16 22:00 Lopressor IVP Q8 LOUANN Nitroglycerin 1 ea 12/01/16 12:00 12/01/16 17:18 Nitro-Bid 2% Oint TOP 1 ea Q6 LOUANN Administration - Patient Studies Lab Studies: Lab Studies 12/01/16 12/01/16 12/01/16 Range/Units 21:14 19:59 18:48 WBC (4.8-10.8) K/uL RBC (4.40-5.90) Mil/uL Hgb (12.0-18.0) g/dL Hct (35.0-51.0) % MCV (80.0-94.0) fL MCH (27.0-31.0) pg MCHC (33.0-37.0) g/dL RDW (11.5-14.5) % Plt Count (130-400) K/uL MPV (7.2-11.7) fL Neut % (Auto) (50.0-75.0) % Lymph % (Auto) (20.0-40.0) % [place] % (Auto) (0.0-10.0) % Eos % (Auto) (0.0-4.0) % Baso % (Auto) (0.0-2.0) % Neut # (1.8-7.0) K/uL Lymph # (1.0-4.3) K/uL [place] # (0.0-0.8) K/uL Eos # (0.0-0.7) K/uL Baso # (0.0-0.2) K/uL APTT (21-34) SECONDS Sodium (132-148) mmol/L Potassium (3.6-5.2) mmol/L Chloride (98-107) mmol/L Carbon Dioxide (22-30) mmol/L Anion Gap (10-20) BUN (9-20) mg/dL Creatinine (0.8-1.5) MG/DL Est GFR ( Amer) Est GFR (Non-Af Amer) POC Glucose (mg/dL) 160 H 229 H 236 H (65-110) mg/dL Random Glucose (75-110) mg/dL Lactic Acid (0.7-2.1) mmol/L Calcium (8.6-10.4) mg/dl Phosphorus (2.5-4.5) mg/dL Magnesium (1.6-2.3) mg/dL Total Bilirubin (0.2-1.3) mg/dL AST (17-59) U/L ALT (21-72) U/L Alkaline Phosphatase (38-126) U/L Total Creatine Kinase (55-170) U/L CK-MB (Mass) (0.0-3.38) ng/mL Troponin I (0.00-0.120) ng/mL Troponin I, Quant (0.00-0.120) ng/mL Total Protein (6.3-8.3) g/dL Albumin (3.5-5.0) g/dL Globulin (2.2-3.9) gm/dL Albumin/Globulin Ratio (1.0-2.1) Urine Color (YELLOW) Urine Clarity (Clear) Urine pH (5.0-8.0) Ur Specific Gary (1.003-1.030) Urine Protein (NEGATIVE) mg/dL Urine Glucose (UA) (Normal) mg/dL Urine Ketones (NEGATIVE) mg/dL Urine Blood (NEGATIVE) Urine Nitrate (NEGATIVE) Urine Bilirubin (NEGATIVE) Urine Urobilinogen (0.2-1.0) mg/dL Ur Leukocyte Esterase (Negative) Ashia/uL Urine WBC (Auto) (0-5) /hpf Urine RBC (Auto) (0-3) /hpf Ur Squamous Epith Cells (0-5) /hpf Hyaline Casts (0-2) /lpf 12/01/16 12/01/16 12/01/16 Range/Units 18:08 18:00 17:15 WBC (4.8-10.8) K/uL RBC (4.40-5.90) Mil/uL Hgb (12.0-18.0) g/dL Hct (35.0-51.0) % MCV (80.0-94.0) fL MCH (27.0-31.0) pg MCHC (33.0-37.0) g/dL RDW (11.5-14.5) % Plt Count (130-400) K/uL MPV (7.2-11.7) fL Neut % (Auto) (50.0-75.0) % Lymph % (Auto) (20.0-40.0) % [place] % (Auto) (0.0-10.0) % Eos % (Auto) (0.0-4.0) % Baso % (Auto) (0.0-2.0) % Neut # (1.8-7.0) K/uL Lymph # (1.0-4.3) K/uL [place] # (0.0-0.8) K/uL Eos # (0.0-0.7) K/uL Baso # (0.0-0.2) K/uL APTT (21-34) SECONDS Sodium (132-148) mmol/L Potassium (3.6-5.2) mmol/L Chloride (98-107) mmol/L Carbon Dioxide (22-30) mmol/L Anion Gap (10-20) BUN (9-20) mg/dL Creatinine (0.8-1.5) MG/DL Est GFR ( Amer) Est GFR (Non-Af Amer) POC Glucose (mg/dL) 244 H 254 H (65-110) mg/dL Random Glucose (75-110) mg/dL Lactic Acid (0.7-2.1) mmol/L Calcium (8.6-10.4) mg/dl Phosphorus (2.5-4.5) mg/dL Magnesium (1.6-2.3) mg/dL Total Bilirubin (0.2-1.3) mg/dL AST (17-59) U/L ALT (21-72) U/L Alkaline Phosphatase (38-126) U/L Total Creatine Kinase (55-170) U/L CK-MB (Mass) (0.0-3.38) ng/mL Troponin I 129.0000 H* (0.00-0.120) ng/mL Troponin I, Quant (0.00-0.120) ng/mL Total Protein (6.3-8.3) g/dL Albumin (3.5-5.0) g/dL Globulin (2.2-3.9) gm/dL Albumin/Globulin Ratio (1.0-2.1) Urine Color (YELLOW) Urine Clarity (Clear) Urine pH (5.0-8.0) Ur Specific Gary (1.003-1.030) Urine Protein (NEGATIVE) mg/dL Urine Glucose (UA) (Normal) mg/dL Urine Ketones (NEGATIVE) mg/dL Urine Blood (NEGATIVE) Urine Nitrate (NEGATIVE) Urine Bilirubin (NEGATIVE) Urine Urobilinogen (0.2-1.0) mg/dL Ur Leukocyte Esterase (Negative) Ashia/uL Urine WBC (Auto) (0-5) /hpf Urine RBC (Auto) (0-3) /hpf Ur Squamous Epith Cells (0-5) /hpf Hyaline Casts (0-2) /lpf 0712/01/16 12/01/16 Range/Units 16:34 16:34 16:15 WBC (4.8-10.8) K/uL RBC (4.40-5.90) Mil/uL Hgb (12.0-18.0) g/dL Hct (35.0-51.0) % MCV (80.0-94.0) fL MCH (27.0-31.0) pg MCHC (33.0-37.0) g/dL RDW (11.5-14.5) % Plt Count (130-400) K/uL MPV (7.2-11.7) fL Neut % (Auto) (50.0-75.0) % Lymph % (Auto) (20.0-40.0) % [place] % (Auto) (0.0-10.0) % Eos % (Auto) (0.0-4.0) % Baso % (Auto) (0.0-2.0) % Neut # (1.8-7.0) K/uL Lymph # (1.0-4.3) K/uL [place] # (0.0-0.8) K/uL Eos # (0.0-0.7) K/uL Baso # (0.0-0.2) K/uL APTT 29 (21-34) SECONDS Sodium (132-148) mmol/L Potassium (3.6-5.2) mmol/L Chloride (98-107) mmol/L Carbon Dioxide (22-30) mmol/L Anion Gap (10-20) BUN (9-20) mg/dL Creatinine (0.8-1.5) MG/DL Est GFR ( Amer) Est GFR (Non-Af Amer) POC Glucose (mg/dL) 246 H (65-110) mg/dL Random Glucose (75-110) mg/dL Lactic Acid (0.7-2.1) mmol/L Calcium (8.6-10.4) mg/dl Phosphorus (2.5-4.5) mg/dL Magnesium (1.6-2.3) mg/dL Total Bilirubin (0.2-1.3) mg/dL AST (17-59) U/L ALT (21-72) U/L Alkaline Phosphatase (38-126) U/L Total Creatine Kinase (55-170) U/L CK-MB (Mass) (0.0-3.38) ng/mL Troponin I 146.0000 H* (0.00-0.120) ng/mL Troponin I, Quant (0.00-0.120) ng/mL Total Protein (6.3-8.3) g/dL Albumin (3.5-5.0) g/dL Globulin (2.2-3.9) gm/dL Albumin/Globulin Ratio (1.0-2.1) Urine Color (YELLOW) Urine Clarity (Clear) Urine pH (5.0-8.0) Ur Specific Gary (1.003-1.030) Urine Protein (NEGATIVE) mg/dL Urine Glucose (UA) (Normal) mg/dL Urine Ketones (NEGATIVE) mg/dL Urine Blood (NEGATIVE) Urine Nitrate (NEGATIVE) Urine Bilirubin (NEGATIVE) Urine Urobilinogen (0.2-1.0) mg/dL Ur Leukocyte Esterase (Negative) Ashia/uL Urine WBC (Auto) (0-5) /hpf Urine RBC (Auto) (0-3) /hpf Ur Squamous Epith Cells (0-5) /hpf Hyaline Casts (0-2) /lpf 12/01/16 12/01/16 12/01/16 Range/Units 14:59 14:07 12:56 WBC (4.8-10.8) K/uL RBC (4.40-5.90) Mil/uL Hgb (12.0-18.0) g/dL Hct (35.0-51.0) % MCV (80.0-94.0) fL MCH (27.0-31.0) pg MCHC (33.0-37.0) g/dL RDW (11.5-14.5) % Plt Count (130-400) K/uL MPV (7.2-11.7) fL Neut % (Auto) (50.0-75.0) % Lymph % (Auto) (20.0-40.0) % [place] % (Auto) (0.0-10.0) % Eos % (Auto) (0.0-4.0) % Baso % (Auto) (0.0-2.0) % Neut # (1.8-7.0) K/uL Lymph # (1.0-4.3) K/uL [place] # (0.0-0.8) K/uL Eos # (0.0-0.7) K/uL Baso # (0.0-0.2) K/uL APTT (21-34) SECONDS Sodium (132-148) mmol/L Potassium (3.6-5.2) mmol/L Chloride (98-107) mmol/L Carbon Dioxide (22-30) mmol/L Anion Gap (10-20) BUN (9-20) mg/dL Creatinine (0.8-1.5) MG/DL Est GFR ( Amer) Est GFR (Non-Af Amer) POC Glucose (mg/dL) 189 H 200 H 281 H (65-110) mg/dL Random Glucose (75-110) mg/dL Lactic Acid (0.7-2.1) mmol/L Calcium (8.6-10.4) mg/dl Phosphorus (2.5-4.5) mg/dL Magnesium (1.6-2.3) mg/dL Total Bilirubin (0.2-1.3) mg/dL AST (17-59) U/L ALT (21-72) U/L Alkaline Phosphatase (38-126) U/L Total Creatine Kinase (55-170) U/L CK-MB (Mass) (0.0-3.38) ng/mL Troponin I (0.00-0.120) ng/mL Troponin I, Quant (0.00-0.120) ng/mL Total Protein (6.3-8.3) g/dL Albumin (3.5-5.0) g/dL Globulin (2.2-3.9) gm/dL Albumin/Globulin Ratio (1.0-2.1) Urine Color (YELLOW) Urine Clarity (Clear) Urine pH (5.0-8.0) Ur Specific Gary (1.003-1.030) Urine Protein (NEGATIVE) mg/dL Urine Glucose (UA) (Normal) mg/dL Urine Ketones (NEGATIVE) mg/dL Urine Blood (NEGATIVE) Urine Nitrate (NEGATIVE) Urine Bilirubin (NEGATIVE) Urine Urobilinogen (0.2-1.0) mg/dL Ur Leukocyte Esterase (Negative) Ashia/uL Urine WBC (Auto) (0-5) /hpf Urine RBC (Auto) (0-3) /hpf Ur Squamous Epith Cells (0-5) /hpf Hyaline Casts (0-2) /lpf 12/01/16 12/01/16 12/01/16 Range/Units 12:13 11:00 09:56 WBC (4.8-10.8) K/uL RBC (4.40-5.90) Mil/uL Hgb (12.0-18.0) g/dL Hct (35.0-51.0) % MCV (80.0-94.0) fL MCH (27.0-31.0) pg MCHC (33.0-37.0) g/dL RDW (11.5-14.5) % Plt Count (130-400) K/uL MPV (7.2-11.7) fL Neut % (Auto) (50.0-75.0) % Lymph % (Auto) (20.0-40.0) % [place] % (Auto) (0.0-10.0) % Eos % (Auto) (0.0-4.0) % Baso % (Auto) (0.0-2.0) % Neut # (1.8-7.0) K/uL Lymph # (1.0-4.3) K/uL [place] # (0.0-0.8) K/uL Eos # (0.0-0.7) K/uL Baso # (0.0-0.2) K/uL APTT (21-34) SECONDS Sodium (132-148) mmol/L Potassium (3.6-5.2) mmol/L Chloride (98-107) mmol/L Carbon Dioxide (22-30) mmol/L Anion Gap (10-20) BUN (9-20) mg/dL Creatinine (0.8-1.5) MG/DL Est GFR ( Amer) Est GFR (Non-Af Amer) POC Glucose (mg/dL) 269 H 377 H 376 H (65-110) mg/dL Random Glucose (75-110) mg/dL Lactic Acid (0.7-2.1) mmol/L Calcium (8.6-10.4) mg/dl Phosphorus (2.5-4.5) mg/dL Magnesium (1.6-2.3) mg/dL Total Bilirubin (0.2-1.3) mg/dL AST (17-59) U/L ALT (21-72) U/L Alkaline Phosphatase (38-126) U/L Total Creatine Kinase (55-170) U/L CK-MB (Mass) (0.0-3.38) ng/mL Troponin I (0.00-0.120) ng/mL Troponin I, Quant (0.00-0.120) ng/mL Total Protein (6.3-8.3) g/dL Albumin (3.5-5.0) g/dL Globulin (2.2-3.9) gm/dL Albumin/Globulin Ratio (1.0-2.1) Urine Color (YELLOW) Urine Clarity (Clear) Urine pH (5.0-8.0) Ur Specific [place] (1.003-1.030) Urine Protein (NEGATIVE) mg/dL Urine Glucose (UA) (Normal) mg/dL Urine Ketones (NEGATIVE) mg/dL Urine Blood (NEGATIVE) Urine Nitrate (NEGATIVE) Urine Bilirubin (NEGATIVE) Urine Urobilinogen (0.2-1.0) mg/dL Ur Leukocyte Esterase (Negative) Ashia/uL Urine WBC (Auto) (0-5) /hpf Urine RBC (Auto) (0-3) /hpf Ur Squamous Epith Cells (0-5) /hpf Hyaline Casts (0-2) /lpf 12/01/16 12/01/16 12/01/16 Range/Units 06:36 06:36 06:36 WBC 1.6 L* (4.8-10.8) K/uL RBC 3.38 L (4.40-5.90) Mil/uL Hgb 8.7 L (12.0-18.0) g/dL Hct 29.2 L (35.0-51.0) % MCV 86.4 D (80.0-94.0) fL MCH 25.8 L (27.0-31.0) pg MCHC 29.8 L (33.0-37.0) g/dL RDW 25.2 H (11.5-14.5) % Plt Count 578 H (130-400) K/uL MPV 10.4 (7.2-11.7) fL Neut % (Auto) 51.8 (50.0-75.0) % Lymph % (Auto) 43.9 H (20.0-40.0) % [place] % (Auto) 2.5 (0.0-10.0) % Eos % (Auto) 0.5 (0.0-4.0) % Baso % (Auto) 1.3 (0.0-2.0) % Neut # 0.8 L (1.8-7.0) K/uL Lymph # 0.7 L (1.0-4.3) K/uL [place] # 0.0 (0.0-0.8) K/uL Eos # 0.0 (0.0-0.7) K/uL Baso # 0.0 (0.0-0.2) K/uL APTT (21-34) SECONDS Sodium 134 (132-148) mmol/L Potassium 4.9 (3.6-5.2) mmol/L Chloride 103 (98-107) mmol/L Carbon Dioxide 12 L (22-30) mmol/L Anion Gap 24 H (10-20) BUN 37 H (9-20) mg/dL Creatinine 1.6 H (0.8-1.5) MG/DL Est GFR ( Amer) 52 Est GFR (Non-Af Amer) 43 POC Glucose (mg/dL) (65-110) mg/dL Random Glucose 662 H* D (75-110) mg/dL Lactic Acid 6.9 H* (0.7-2.1) mmol/L Calcium 8.4 L (8.6-10.4) mg/dl Phosphorus 7.9 H (2.5-4.5) mg/dL Magnesium 2.3 (1.6-2.3) mg/dL Total Bilirubin 1.1 (0.2-1.3) mg/dL AST 108 H D (17-59) U/L ALT 60 (21-72) U/L Alkaline Phosphatase 95 (38-126) U/L Total Creatine Kinase 68 (55-170) U/L CK-MB (Mass) 5.29 H (0.0-3.38) ng/mL Troponin I 3.1100 H* (0.00-0.120) ng/mL Troponin I, Quant 3.1100 H* (0.00-0.120) ng/mL Total Protein 6.5 (6.3-8.3) g/dL Albumin 2.9 L (3.5-5.0) g/dL Globulin 3.6 (2.2-3.9) gm/dL Albumin/Globulin Ratio 0.8 L (1.0-2.1) Urine Color (YELLOW) Urine Clarity (Clear) Urine pH (5.0-8.0) Ur Specific [place] (1.003-1.030) Urine Protein (NEGATIVE) mg/dL Urine Glucose (UA) (Normal) mg/dL Urine Ketones (NEGATIVE) mg/dL Urine Blood (NEGATIVE) Urine Nitrate (NEGATIVE) Urine Bilirubin (NEGATIVE) Urine Urobilinogen (0.2-1.0) mg/dL Ur Leukocyte Esterase (Negative) Ashia/uL Urine WBC (Auto) (0-5) /hpf Urine RBC (Auto) (0-3) /hpf Ur Squamous Epith Cells (0-5) /hpf Hyaline Casts (0-2) /lpf 12/01/16 12/01/16 12/01/16 Range/Units 05:58 04:27 04:12 WBC (4.8-10.8) K/uL RBC (4.40-5.90) Mil/uL Hgb (12.0-18.0) g/dL Hct (35.0-51.0) % MCV (80.0-94.0) fL MCH (27.0-31.0) pg MCHC (33.0-37.0) g/dL RDW (11.5-14.5) % Plt Count (130-400) K/uL MPV (7.2-11.7) fL Neut % (Auto) (50.0-75.0) % Lymph % (Auto) (20.0-40.0) % [place] % (Auto) (0.0-10.0) % Eos % (Auto) (0.0-4.0) % Baso % (Auto) (0.0-2.0) % Neut # (1.8-7.0) K/uL Lymph # (1.0-4.3) K/uL [place] # (0.0-0.8) K/uL Eos # (0.0-0.7) K/uL Baso # (0.0-0.2) K/uL APTT (21-34) SECONDS Sodium (132-148) mmol/L Potassium (3.6-5.2) mmol/L Chloride (98-107) mmol/L Carbon Dioxide (22-30) mmol/L Anion Gap (10-20) BUN (9-20) mg/dL Creatinine (0.8-1.5) MG/DL Est GFR ( Amer) Est GFR (Non-Af Amer) POC Glucose (mg/dL) 421 H* 485 H* (65-110) mg/dL Random Glucose (75-110) mg/dL Lactic Acid (0.7-2.1) mmol/L Calcium (8.6-10.4) mg/dl Phosphorus (2.5-4.5) mg/dL Magnesium (1.6-2.3) mg/dL Total Bilirubin (0.2-1.3) mg/dL AST (17-59) U/L ALT (21-72) U/L Alkaline Phosphatase (38-126) U/L Total Creatine Kinase (55-170) U/L CK-MB (Mass) (0.0-3.38) ng/mL Troponin I (0.00-0.120) ng/mL Troponin I, Quant (0.00-0.120) ng/mL Total Protein (6.3-8.3) g/dL Albumin (3.5-5.0) g/dL Globulin (2.2-3.9) gm/dL Albumin/Globulin Ratio (1.0-2.1) Urine Color Lulu (YELLOW) Urine Clarity Hazy (Clear) Urine pH 5.0 (5.0-8.0) Ur Specific Gary 1.022 (1.003-1.030) Urine Protein 1+ H (NEGATIVE) mg/dL Urine Glucose (UA) 3+ H (Normal) mg/dL Urine Ketones Negative (NEGATIVE) mg/dL Urine Blood Negative (NEGATIVE) Urine Nitrate Negative (NEGATIVE) Urine Bilirubin Negative (NEGATIVE) Urine Urobilinogen 2.0 (0.2-1.0) mg/dL Ur Leukocyte Esterase Neg (Negative) Ashia/uL Urine WBC (Auto) 2 (0-5) /hpf Urine RBC (Auto) 1 (0-3) /hpf Ur Squamous Epith Cells < 1 (0-5) /hpf Hyaline Casts 6-10 H (0-2) /lpf Laboratory Results - last 24 hr 12/01/16 12/01/16 12/01/16 04:12 04:27 05:58 WBC RBC Hgb Hct MCV MCH MCHC RDW Plt Count MPV Neut % (Auto) Lymph % (Auto) [place] % (Auto) Eos % (Auto) Baso % (Auto) Neut # Lymph # [place] # Eos # Baso # APTT Sodium Potassium Chloride Carbon Dioxide Anion Gap BUN Creatinine Est GFR ( Amer) Est GFR (Non-Af Amer) POC Glucose (mg/dL) 485 H* 421 H* Random Glucose Lactic Acid Calcium Phosphorus Magnesium Total Bilirubin AST ALT Alkaline Phosphatase Total Creatine Kinase CK-MB (Mass) Troponin I Troponin I, Quant Total Protein Albumin Globulin Albumin/Globulin Ratio Urine Color Lulu Urine Clarity Hazy Urine pH 5.0 Ur Specific Gary 1.022 Urine Protein 1+ H Urine Glucose (UA) 3+ H Urine Ketones Negative Urine Blood Negative Urine Nitrate Negative Urine Bilirubin Negative Urine Urobilinogen 2.0 Ur Leukocyte Esterase Neg Urine WBC (Auto) 2 Urine RBC (Auto) 1 Ur Squamous Epith Cells < 1 Hyaline Casts 6-10 H 12/01/16 12/01/16 12/01/16 06:36 06:36 06:36 WBC 1.6 L* RBC 3.38 L Hgb 8.7 L Hct 29.2 L MCV 86.4 D MCH 25.8 L MCHC 29.8 L RDW 25.2 H Plt Count 578 H MPV 10.4 Neut % (Auto) 51.8 Lymph % (Auto) 43.9 H [place] % (Auto) 2.5 Eos % (Auto) 0.5 Baso % (Auto) 1.3 Neut # 0.8 L Lymph # 0.7 L [place] # 0.0 Eos # 0.0 Baso # 0.0 APTT Sodium 134 Potassium 4.9 Chloride 103 Carbon Dioxide 12 L Anion Gap 24 H BUN 37 H Creatinine 1.6 H Est GFR ( Amer) 52 Est GFR (Non-Af Amer) 43 POC Glucose (mg/dL) Random Glucose 662 H* D Lactic Acid 6.9 H* Calcium 8.4 L Phosphorus 7.9 H Magnesium 2.3 Total Bilirubin 1.1 AST 108 H D ALT 60 Alkaline Phosphatase 95 Total Creatine Kinase 68 CK-MB (Mass) 5.29 H Troponin I 3.1100 H* Troponin I, Quant 3.1100 H* Total Protein 6.5 Albumin 2.9 L Globulin 3.6 Albumin/Globulin Ratio 0.8 L Urine Color Urine Clarity Urine pH Ur Specific Gary Urine Protein Urine Glucose (UA) Urine Ketones Urine Blood Urine Nitrate Urine Bilirubin Urine Urobilinogen Ur Leukocyte Esterase Urine WBC (Auto) Urine RBC (Auto) Ur Squamous Epith Cells Hyaline Casts 12/01/16 12/01/16 12/01/16 09:56 11:00 12:13 WBC RBC Hgb Hct MCV MCH MCHC RDW Plt Count MPV Neut % (Auto) Lymph % (Auto) [place] % (Auto) Eos % (Auto) Baso % (Auto) Neut # Lymph # [place] # Eos # Baso # APTT Sodium Potassium Chloride Carbon Dioxide Anion Gap BUN Creatinine Est GFR ( Amer) Est GFR (Non-Af Amer) POC Glucose (mg/dL) 376 H 377 H 269 H Random Glucose Lactic Acid Calcium Phosphorus Magnesium Total Bilirubin AST ALT Alkaline Phosphatase Total Creatine Kinase CK-MB (Mass) Troponin I Troponin I, Quant Total Protein Albumin Globulin Albumin/Globulin Ratio Urine Color Urine Clarity Urine pH Ur Specific Gary Urine Protein Urine Glucose (UA) Urine Ketones Urine Blood Urine Nitrate Urine Bilirubin Urine Urobilinogen Ur Leukocyte Esterase Urine WBC (Auto) Urine RBC (Auto) Ur Squamous Epith Cells Hyaline Casts 12/01/16 12/01/16 12/01/16 12:56 14:07 14:59 WBC RBC Hgb Hct MCV MCH MCHC RDW Plt Count MPV Neut % (Auto) Lymph % (Auto) [place] % (Auto) Eos % (Auto) Baso % (Auto) Neut # Lymph # [place] # Eos # Baso # APTT Sodium Potassium Chloride Carbon Dioxide Anion Gap BUN Creatinine Est GFR ( Amer) Est GFR (Non-Af Amer) POC Glucose (mg/dL) 281 H 200 H 189 H Random Glucose Lactic Acid Calcium Phosphorus Magnesium Total Bilirubin AST ALT Alkaline Phosphatase Total Creatine Kinase CK-MB (Mass) Troponin I Troponin I, Quant Total Protein Albumin Globulin Albumin/Globulin Ratio Urine Color Urine Clarity Urine pH Ur Specific Gary Urine Protein Urine Glucose (UA) Urine Ketones Urine Blood Urine Nitrate Urine Bilirubin Urine Urobilinogen Ur Leukocyte Esterase Urine WBC (Auto) Urine RBC (Auto) Ur Squamous Epith Cells Hyaline Casts 12/01/16 12/01/16 12/01/16 16:15 16:34 16:34 WBC RBC Hgb Hct MCV MCH MCHC RDW Plt Count MPV Neut % (Auto) Lymph % (Auto) [place] % (Auto) Eos % (Auto) Baso % (Auto) Neut # Lymph # [place] # Eos # Baso # APTT 29 Sodium Potassium Chloride Carbon Dioxide Anion Gap BUN Creatinine Est GFR ( Amer) Est GFR (Non-Af Amer) POC Glucose (mg/dL) 246 H Random Glucose Lactic Acid Calcium Phosphorus Magnesium Total Bilirubin AST ALT Alkaline Phosphatase Total Creatine Kinase CK-MB (Mass) Troponin I 146.0000 H* Troponin I, Quant Total Protein Albumin Globulin Albumin/Globulin Ratio Urine Color Urine Clarity Urine pH Ur Specific Gary Urine Protein Urine Glucose (UA) Urine Ketones Urine Blood Urine Nitrate Urine Bilirubin Urine Urobilinogen Ur Leukocyte Esterase Urine WBC (Auto) Urine RBC (Auto) Ur Squamous Epith Cells Hyaline Casts 12/01/16 12/01/16 12/01/16 17:15 18:00 18:08 WBC RBC Hgb Hct MCV MCH MCHC RDW Plt Count MPV Neut % (Auto) Lymph % (Auto) [place] % (Auto) Eos % (Auto) Baso % (Auto) Neut # Lymph # [place] # Eos # Baso # APTT Sodium Potassium Chloride Carbon Dioxide Anion Gap BUN Creatinine Est GFR ( Amer) Est GFR (Non-Af Amer) POC Glucose (mg/dL) 254 H 244 H Random Glucose Lactic Acid Calcium Phosphorus Magnesium Total Bilirubin AST ALT Alkaline Phosphatase Total Creatine Kinase CK-MB (Mass) Troponin I 129.0000 H* Troponin I, Quant Total Protein Albumin Globulin Albumin/Globulin Ratio Urine Color Urine Clarity Urine pH Ur Specific Gary Urine Protein Urine Glucose (UA) Urine Ketones Urine Blood Urine Nitrate Urine Bilirubin Urine Urobilinogen Ur Leukocyte Esterase Urine WBC (Auto) Urine RBC (Auto) Ur Squamous Epith Cells Hyaline Casts 12/01/16 12/01/16 12/01/16 18:48 19:59 21:14 WBC RBC Hgb Hct MCV MCH MCHC RDW Plt Count MPV Neut % (Auto) Lymph % (Auto) [place] % (Auto) Eos % (Auto) Baso % (Auto) Neut # Lymph # [place] # Eos # Baso # APTT Sodium Potassium Chloride Carbon Dioxide Anion Gap BUN Creatinine Est GFR ( Amer) Est GFR (Non-Af Amer) POC Glucose (mg/dL) 236 H 229 H 160 H Random Glucose Lactic Acid Calcium Phosphorus Magnesium Total Bilirubin AST ALT Alkaline Phosphatase Total Creatine Kinase CK-MB (Mass) Troponin I Troponin I, Quant Total Protein Albumin Globulin Albumin/Globulin Ratio Urine Color Urine Clarity Urine pH Ur Specific Gary Urine Protein Urine Glucose (UA) Urine Ketones Urine Blood Urine Nitrate Urine Bilirubin Urine Urobilinogen Ur Leukocyte Esterase Urine WBC (Auto) Urine RBC (Auto) Ur Squamous Epith Cells Hyaline Casts Fingerstick Blood Sugar Results: 376 Critical Care Progress Note - Nutrition Nutrition: Nutrition Category Date Time Status Liquid Diet [DIET] Diets 12/01/16 Lunch Active
[2016-12-01] MEDS: Metoprolol 1 mg/ml Inj IVP SCH (21:50)
[2016-12-01] MEDS ORDERED: MethylPREDNISolone 40 mg Vial IVP SCH (22:00)
[2016-12-02] MEDS: Nitroglycerin 2% Ointment Foilpak UD TOP SCH ×5 (00:48→23:40)
[2016-12-02] MEDS: Albuterol-Ipratrop 3 mg / 0.5 (3 ml) UD INH SCH ×4 (01:04→20:45)
[2016-12-02] MEDS: cefTRIAXone IV 1 gm in Dextros 50 ML IVPB SCH (03:00)
--- NOTE | 2016-12-02 03:13 | CP.PCM.CON ---
History of Present Illness - History of Present Illness History of Present Illness: 71 year old male with a history of DM, CAD complicated by AK s/p stent, PVD, pancytopenia with severe neutropenia felt to be secondary to MDS diagnosed 2016 on decitabine, admitted with shortness of breath, elevated troponin, and hyperglycemia. The patient has recently been started on decitabine for MDS with resolution of thrombocytopenia and decreased requirement for PRBC transfusion. He reports to feeling short of breath which prompted him to come to the hospital. He stopped taking his diabetes medication as he is unable to give himself injections. Past medial history: DM, CAD complicated by AK s/p stent, PVD Past surgical history: None Family history: Denies hematologic and oncologic problems Social history: Former tobacco and alcohol abuse. Allergies: NKA Review of systems: All remaining review of systems including HEENT, cardiovascular, respiratory, gastrointestinal, genitourinary, musculoskeletal, dermatologic, neurologic, and psychiatric are negative unless mentioned in the HPI. Past Patient History - Infectious Disease Hx of Infectious Diseases: None - Tetanus Immunizations Tetanus Immunization: Unknown - Past Medical History & Family History Past Medical History?: No - Past Social History Smoking Status: Heavy Smoker > 10 Cigarettes Daily - CARDIAC Hx Hypercholesterolemia: Yes Hx Hypertension: Yes - PULMONARY Hx Respiratory Disorders: No - NEUROLOGICAL Hx Paralysis: No - HEENT Hx HEENT Problems: No - RENAL Hx Chronic Kidney Disease: Yes Hx Kidney Stones: Yes - ENDOCRINE/METABOLIC Hx Endocrine Disorders: Yes Hx Diabetes Mellitus Type 2: Yes - HEMATOLOGICAL/ONCOLOGICAL Hx Anemia: Yes - INTEGUMENTARY Hx Dermatological Problems: Yes Hx Cellulitis: Yes - MUSCULOSKELETAL/RHEUMATOLOGICAL Hx Musculoskeletal Disorders: Yes Hx Falls: Yes - GASTROINTESTINAL Hx Gastrointestinal Disorders: No - GENITOURINARY/GYNECOLOGICAL Hx Genitourinary Disorders: No - PSYCHIATRIC Hx Substance Use: No - SURGICAL HISTORY Hx Coronary Stent: Yes - ANESTHESIA Hx Anesthesia: Yes Meds Allergies/Adverse Reactions: Allergies Allergy/AdvReac Type Severity Reaction Status Date / Time No Known Allergies Allergy Verified 09/16/16 20:22 - Medications Medications: Current Medications Albuterol/Ipratropium (Duoneb 3 Mg/0.5 Mg (3 Ml) Ud) [address] [facility] Last Admin: 12/02/16 01:04 Dose: 3 ml Aspirin (Aspirin) [address] [facility] Last Admin: 07/22/17 09:49 Dose: 325 mg Famotidine (Pepcid) [address] [facility] Last Admin: 12/01/16 09:49 Dose: 20 mg Ceftriaxone Sodium (Rocephin Iv 1 Gm Duplex) 50 mls @ 100 mls/hr IVPB Q24H [facility] Azithromycin (Zithromax 500mg In Ns Addvantage) 500 mg in 250 mls @ 167 mls/hr IVPB Q24H [facility] Heparin Sodium/Sodium Chloride (Heparin 90790 Units/250ml 1/2 Normal Saline) 25 ,000 units in 250 mls @ 7.947 mls/hr IV .Q24H PRN; Protocol; 12 UNITS/KG/HR PRN Reason: PROTOCOL Last Titration: 12/01/16 17:00 Dose: 16 units/kg/hr, 10.596 mls/hr Insulin Human Regular (Novolin R) [address] [facility] PRN Reason: Protocol Methylprednisolone (Solu-Medrol) [address] [facility] Last Admin: 12/01/16 21:55 Dose: 40 mg Metoprolol Tartrate (Lopressor) 2.[address] [facility] Last Admin: 12/01/16 21:50 Dose: 2.5 mg Nitroglycerin (Nitro-Bid 2% Oint) [address] [facility] Last Admin: 12/02/16 00:48 Dose: 1 ea Physical Exam - Head Exam Head Exam: ATRAUMATIC - Eye Exam Eye Exam: Normal appearance - ENT Exam ENT Exam: Mucous Membranes Dry - Respiratory Exam Respiratory Exam: NORMAL BREATHING PATTERN - Cardiovascular Exam Cardiovascular Exam: +S1, +S2 - GI/Abdominal Exam GI & Abdominal Exam: Normal Bowel Sounds - Extremities Exam Extremities exam: Positive for: normal inspection - Neurological Exam Neurological exam: Oriented x3 - Psychiatric Exam Psychiatric exam: Normal Affect, Normal Mood - Skin Skin Exam: Warm Results - Vital Signs Recent Vital Signs: Last Vital Signs Temp 97.3 F L 12/02/16 00:00 Pulse 95 H 12/02/16 01:00 Resp 19 12/02/16 01:00 BP 114/73 12/02/16 01:00 Pulse Ox 100 12/02/16 01:00 - Labs Result Diagrams: 12/02/16 06:07 12/02/16 06:06 Labs: Laboratory Results - last 24 hr 12/01/16 12/01/16 12/01/16 04:12 04:27 05:58 WBC RBC Hgb Hct MCV MCH MCHC RDW Plt Count MPV Neut % (Auto) Lymph % (Auto) [place] % (Auto) Eos % (Auto) Baso % (Auto) Neut # Lymph # [place] # Eos # Baso # APTT Sodium Potassium Chloride Carbon Dioxide Anion Gap BUN Creatinine Est GFR ( Amer) Est GFR (Non-Af Amer) POC Glucose (mg/dL) 485 H* 421 H* Random Glucose Lactic Acid Calcium Phosphorus Magnesium Total Bilirubin AST ALT Alkaline Phosphatase Total Creatine Kinase CK-MB (Mass) Troponin I Troponin I, Quant Total Protein Albumin Globulin Albumin/Globulin Ratio Urine Color [place] Urine Clarity Hazy Urine pH 5.0 Ur Specific [place] 1.022 Urine Protein 1+ H Urine Glucose (UA) 3+ H Urine Ketones Negative Urine Blood Negative Urine Nitrate Negative Urine Bilirubin Negative Urine Urobilinogen 2.0 Ur Leukocyte Esterase Neg Urine WBC (Auto) 2 Urine RBC (Auto) 1 Ur Squamous Epith Cells < 1 Hyaline Casts 6-10 H 12/01/16 12/01/16 12/01/16 06:36 06:36 06:36 WBC 1.6 L* RBC 3.38 L Hgb 8.7 L Hct 29.2 L MCV 86.4 D MCH 25.8 L MCHC 29.8 L RDW 25.2 H Plt Count 578 H MPV 10.4 Neut % (Auto) 51.8 Lymph % (Auto) 43.9 H [place] % (Auto) 2.5 Eos % (Auto) 0.5 Baso % (Auto) 1.3 Neut # 0.8 L Lymph # 0.7 L [place] # 0.0 Eos # 0.0 Baso # 0.0 APTT Sodium 134 Potassium 4.9 Chloride 103 Carbon Dioxide 12 L Anion Gap 24 H BUN 37 H Creatinine 1.6 H Est GFR ( Amer) 52 Est GFR (Non-Af Amer) 43 POC Glucose (mg/dL) Random Glucose 662 H* D Lactic Acid 6.9 H* Calcium 8.4 L Phosphorus 7.9 H Magnesium 2.3 Total Bilirubin 1.1 AST 108 H D ALT 60 Alkaline Phosphatase 95 Total Creatine Kinase 68 CK-MB (Mass) 5.29 H Troponin I 3.1100 H* Troponin I, Quant 3.1100 H* Total Protein 6.5 Albumin 2.9 L Globulin 3.6 Albumin/Globulin Ratio 0.8 L Urine Color Urine Clarity Urine pH Ur Specific [place] Urine Protein Urine Glucose (UA) Urine Ketones Urine Blood Urine Nitrate Urine Bilirubin Urine Urobilinogen Ur Leukocyte Esterase Urine WBC (Auto) Urine RBC (Auto) Ur Squamous Epith Cells Hyaline Casts 12/01/16 12/01/16 12/01/16 09:56 11:00 12:13 WBC RBC Hgb Hct MCV MCH MCHC RDW Plt Count MPV Neut % (Auto) Lymph % (Auto) [place] % (Auto) Eos % (Auto) Baso % (Auto) Neut # Lymph # [place] # Eos # Baso # APTT Sodium Potassium Chloride Carbon Dioxide Anion Gap BUN Creatinine Est GFR ( Amer) Est GFR (Non-Af Amer) POC Glucose (mg/dL) 376 H 377 H 269 H Random Glucose Lactic Acid Calcium Phosphorus Magnesium Total Bilirubin AST ALT Alkaline Phosphatase Total Creatine Kinase CK-MB (Mass) Troponin I Troponin I, Quant Total Protein Albumin Globulin Albumin/Globulin Ratio Urine Color Urine Clarity Urine pH Ur Specific [place] Urine Protein Urine Glucose (UA) Urine Ketones Urine Blood Urine Nitrate Urine Bilirubin Urine Urobilinogen Ur Leukocyte Esterase Urine WBC (Auto) Urine RBC (Auto) Ur Squamous Epith Cells Hyaline Casts 12/01/16 12/01/16 12/01/16 12:56 14:07 14:59 WBC RBC Hgb Hct MCV MCH MCHC RDW Plt Count MPV Neut % (Auto) Lymph % (Auto) [place] % (Auto) Eos % (Auto) Baso % (Auto) Neut # Lymph # [place] # Eos # Baso # APTT Sodium Potassium Chloride Carbon Dioxide Anion Gap BUN Creatinine Est GFR ( Amer) Est GFR (Non-Af Amer) POC Glucose (mg/dL) 281 H 200 H 189 H Random Glucose Lactic Acid Calcium Phosphorus Magnesium Total Bilirubin AST ALT Alkaline Phosphatase Total Creatine Kinase CK-MB (Mass) Troponin I Troponin I, Quant Total Protein Albumin Globulin Albumin/Globulin Ratio Urine Color Urine Clarity Urine pH Ur Specific [place] Urine Protein Urine Glucose (UA) Urine Ketones Urine Blood Urine Nitrate Urine Bilirubin Urine Urobilinogen Ur Leukocyte Esterase Urine WBC (Auto) Urine RBC (Auto) Ur Squamous Epith Cells Hyaline Casts 12/01/16 12/01/16 12/01/16 16:15 16:34 16:34 WBC RBC Hgb Hct MCV MCH MCHC RDW Plt Count MPV Neut % (Auto) Lymph % (Auto) [place] % (Auto) Eos % (Auto) Baso % (Auto) Neut # Lymph # [place] # Eos # Baso # APTT 29 Sodium Potassium Chloride Carbon Dioxide Anion Gap BUN Creatinine Est GFR ( Amer) Est GFR (Non-Af Amer) POC Glucose (mg/dL) 246 H Random Glucose Lactic Acid Calcium Phosphorus Magnesium Total Bilirubin AST ALT Alkaline Phosphatase Total Creatine Kinase CK-MB (Mass) Troponin I 146.0000 H* Troponin I, Quant Total Protein Albumin Globulin Albumin/Globulin Ratio Urine Color Urine Clarity Urine pH Ur Specific [place] Urine Protein Urine Glucose (UA) Urine Ketones Urine Blood Urine Nitrate Urine Bilirubin Urine Urobilinogen Ur Leukocyte Esterase Urine WBC (Auto) Urine RBC (Auto) Ur Squamous Epith Cells Hyaline Casts 12/01/16 12/01/16 12/01/16 17:15 18:00 18:08 WBC RBC Hgb Hct MCV MCH MCHC RDW Plt Count MPV Neut % (Auto) Lymph % (Auto) [place] % (Auto) Eos % (Auto) Baso % (Auto) Neut # Lymph # [place] # Eos # Baso # APTT Sodium Potassium Chloride Carbon Dioxide Anion Gap BUN Creatinine Est GFR ( Amer) Est GFR (Non-Af Amer) POC Glucose (mg/dL) 254 H 244 H Random Glucose Lactic Acid Calcium Phosphorus Magnesium Total Bilirubin AST ALT Alkaline Phosphatase Total Creatine Kinase CK-MB (Mass) Troponin I 129.0000 H* Troponin I, Quant Total Protein Albumin Globulin Albumin/Globulin Ratio Urine Color Urine Clarity Urine pH Ur Specific [place] Urine Protein Urine Glucose (UA) Urine Ketones Urine Blood Urine Nitrate Urine Bilirubin Urine Urobilinogen Ur Leukocyte Esterase Urine WBC (Auto) Urine RBC (Auto) Ur Squamous Epith Cells Hyaline Casts 12/01/16 12/01/16 12/01/16 18:48 19:59 21:14 WBC RBC Hgb Hct MCV MCH MCHC RDW Plt Count MPV Neut % (Auto) Lymph % (Auto) [place] % (Auto) Eos % (Auto) Baso % (Auto) Neut # Lymph # [place] # Eos # Baso # APTT Sodium Potassium Chloride Carbon Dioxide Anion Gap BUN Creatinine Est GFR ( Amer) Est GFR (Non-Af Amer) POC Glucose (mg/dL) 236 H 229 H 160 H Random Glucose Lactic Acid Calcium Phosphorus Magnesium Total Bilirubin AST ALT Alkaline Phosphatase Total Creatine Kinase CK-MB (Mass) Troponin I Troponin I, Quant Total Protein Albumin Globulin Albumin/Globulin Ratio Urine Color Urine Clarity Urine pH Ur Specific [place] Urine Protein Urine Glucose (UA) Urine Ketones Urine Blood Urine Nitrate Urine Bilirubin Urine Urobilinogen Ur Leukocyte Esterase Urine WBC (Auto) Urine RBC (Auto) Ur Squamous Epith Cells Hyaline Casts 12/01/16 12/01/16 22:59 23:00 WBC RBC Hgb Hct MCV MCH MCHC RDW Plt Count MPV Neut % (Auto) Lymph % (Auto) [place] % (Auto) Eos % (Auto) Baso % (Auto) Neut # Lymph # [place] # Eos # Baso # APTT 51 H D Sodium Potassium Chloride Carbon Dioxide Anion Gap BUN Creatinine Est GFR ( Amer) Est GFR (Non-Af Amer) POC Glucose (mg/dL) 183 H Random Glucose Lactic Acid Calcium Phosphorus Magnesium Total Bilirubin AST ALT Alkaline Phosphatase Total Creatine Kinase CK-MB (Mass) Troponin I Troponin I, Quant Total Protein Albumin Globulin Albumin/Globulin Ratio Urine Color Urine Clarity Urine pH Ur Specific [place] Urine Protein Urine Glucose (UA) Urine Ketones Urine Blood Urine Nitrate Urine Bilirubin Urine Urobilinogen Ur Leukocyte Esterase Urine WBC (Auto) Urine RBC (Auto) Ur Squamous Epith Cells Hyaline Casts Assessment & Plan (1) Neutropenia Assessment and Plan: secondary to MDS and decitabine treatment no indication for growth factor support at this time Status: Acute (2) Anemia Assessment and Plan: MDS, chronic disease, CKD transfusion support PRN Status: Acute (3) Coagulopathy Assessment and Plan: secondary to anticoagulation Status: Acute (4) MDS (myelodysplastic syndrome) Assessment and Plan: on decitabine thrombocytopenia resolved declining transfusion dependence moderate neutropenia Thank you for this interesting consult. Status: Acute
[2016-12-02] MEDS ORDERED: Azithromycin 500mg/250ML NS 500 MG/250 ML BAG IVPB SCH (04:30)
[2016-12-02] MEDS: Metoprolol 1 mg/ml Inj IVP SCH ×3 (05:45→21:44)
[2016-12-02 06:18] LABS: BASO % 0.3 % (0.0-2.0); EOS % 0.2 % (0.0-4.0); HEMATOCRIT 24.8 % (35.0-51.0); LYMPH # 0.4 K/uL (1.0-4.3); LYMPH % 36.2 % (20.0-40.0); MEAN CELL VOLUME 79.8 fL (80.0-94.0); MEAN CORPUSCULAR HEMOGLOBIN 26.1 pg (27.0-31.0); MEAN CORPUSCULAR HGB CONC 32.7 g/dL (33.0-37.0); MEAN PLATELET VOLUME 9.9 fL (7.2-11.7); MONO % 3.3 % (0.0-10.0); NRBC % 1.5 % (0.0-2.0); RED CELL DISTRIBUTION WIDTH 25.1 % (11.5-14.5)
[2016-12-02 06:26] LABS: BILIRUBIN,TOTAL 0.7 mg/dL (0.2-1.3); CALCIUM 8.5 mg/dl (8.6-10.4); MAGNESIUM 2.1 mg/dL (1.6-2.3); PHOSPHOROUS 5.9 mg/dL (2.5-4.5); POTASSIUM 4.7 mmol/L (3.6-5.2); TOTAL PROTEIN 6.7 g/dL (6.3-8.3)
[2016-12-02 06:29] LABS: WHITE BLOOD COUNT 1.2 K/uL (4.8-10.8)
[2016-12-02 06:44] LABS: ALB/GLOB RATIO 0.9 (1.0-2.1)
--- NOTE | 2016-12-02 07:31 | CP.PCM.CON ---
History of Present Illness - History of Present Illness History of Present Illness: Cath in am ekg abgPt 71 y/o with long course of myledysplastic syndrome treated with multiple chemo courses anticoagulation contraindicated requiring multiple transfusins admitted with chest pain and rapid ventricular rate Review of Systems - Review of Systems Systems not reviewed;Unavailable: Acuity of Condition - Constitutional Constitutional: absent: Daytime Sleepiness - EENT Eyes: absent: Change in Vision Ears: absent: Ear Discharge Nose/Mouth/Throat: absent: Nasal Discharge - Cardiovascular Cardiovascular: Chest Pain, Dyspnea - Respiratory Respiratory: Dyspnea on Exertion - Gastrointestinal Gastrointestinal: absent: Abdominal Pain - Musculoskeletal Musculoskeletal: absent: Arthralgias - Integumentary Integumentary: absent: Bleeding Lesions - Neurological Neurological: absent: Abnormal Movements - Psychiatric Psychiatric: absent: Anxiety - Endocrine Endocrine: Fatigue - Hematologic/Lymphatic Hematologic: absent: Easy Bleeding Past Patient History - Infectious Disease Hx of Infectious Diseases: None - Tetanus Immunizations Tetanus Immunization: Unknown - Past Medical History & Family History Past Medical History?: No - Past Social History Smoking Status: Heavy Smoker > 10 Cigarettes Daily - CARDIAC Hx Hypercholesterolemia: Yes Hx Hypertension: Yes - PULMONARY Hx Respiratory Disorders: No - NEUROLOGICAL Hx Paralysis: No - HEENT Hx HEENT Problems: No - RENAL Hx Chronic Kidney Disease: Yes Hx Kidney Stones: Yes - ENDOCRINE/METABOLIC Hx Endocrine Disorders: Yes Hx Diabetes Mellitus Type 2: Yes - HEMATOLOGICAL/ONCOLOGICAL Hx Anemia: Yes - INTEGUMENTARY Hx Dermatological Problems: Yes Hx Cellulitis: Yes - MUSCULOSKELETAL/RHEUMATOLOGICAL Hx Musculoskeletal Disorders: Yes Hx Falls: Yes - GASTROINTESTINAL Hx Gastrointestinal Disorders: No - GENITOURINARY/GYNECOLOGICAL Hx Genitourinary Disorders: No - PSYCHIATRIC Hx Substance Use: No - SURGICAL HISTORY Hx Coronary Stent: Yes - ANESTHESIA Hx Anesthesia: Yes Meds Allergies/Adverse Reactions: Allergies Allergy/AdvReac Type Severity Reaction Status Date / Time No Known Allergies Allergy Verified 09/16/16 20:22 - Medications Medications: Current Medications Albuterol/Ipratropium (Duoneb 3 Mg/0.5 Mg (3 Ml) Ud) 3 ml INH RQ6 [facility] Last Admin: 12/02/16 01:04 Dose: 3 ml Aspirin (Aspirin) 325 mg PO DAILY [facility] Last Admin: 12/01/16 09:49 Dose: 325 mg Famotidine (Pepcid) 20 mg IVP DAILY [facility] Last Admin: 12/01/16 09:49 Dose: 20 mg Ceftriaxone Sodium (Rocephin Iv 1 Gm Duplex) 50 mls @ 100 mls/hr IVPB Q24H [facility] Last Admin: 12/02/16 03:00 Dose: 100 mls/hr Azithromycin (Zithromax 500mg In Ns Addvantage) 500 mg in 250 mls @ 167 mls/hr IVPB Q24H [facility] Last Admin: 12/02/16 04:42 Dose: 167 mls/hr Heparin Sodium/Sodium Chloride (Heparin 95929 Units/250ml 1/2 Normal Saline) 25 ,000 units in 250 mls @ 7.947 mls/hr IV .Q24H PRN; Protocol; 12 UNITS/KG/HR PRN Reason: PROTOCOL Last Titration: 12/01/16 17:00 Dose: 16 units/kg/hr, 10.596 mls/hr Insulin Human Regular (Novolin R) 0 unit SC ACHS [facility] PRN Reason: Protocol Methylprednisolone (Solu-Medrol) 40 mg IVP Q12 [facility] Last Admin: 12/01/16 21:55 Dose: 40 mg Metoprolol Tartrate (Lopressor) 2.5 mg IVP Q8 [facility] Last Admin: 12/02/16 05:45 Dose: 2.5 mg Nitroglycerin (Nitro-Bid 2% Oint) 1 ea TOP Q6 [facility] Last Admin: 12/02/16 05:42 Dose: 1 ea Physical Exam - Constitutional Appears: Chronically Ill - Head Exam Head Exam: NORMOCEPHALIC - Eye Exam Eye Exam: Normal appearance - ENT Exam ENT Exam: Mucous Membranes Moist - Respiratory Exam Respiratory Exam: Rhonchi - Cardiovascular Exam Cardiovascular Exam: REGULAR RHYTHM - GI/Abdominal Exam GI & Abdominal Exam: Normal Bowel Sounds - Exam External exam: NORMAL EXTERNAL EXAM - Extremities Exam Extremities exam: Positive for: normal inspection - Neurological Exam Neurological exam: Alert - Psychiatric Exam Psychiatric exam: Normal Mood - Skin Skin Exam: Dry, Warm Results - Vital Signs Recent Vital Signs: Last Vital Signs Temp 97.6 F 12/02/16 04:00 Pulse 93 H 12/02/16 06:59 Resp 27 H 12/02/16 06:59 BP 108/52 L 12/02/16 07:00 Pulse Ox 100 12/02/16 06:00 - Labs Result Diagrams: 12/07/16 05:59 12/07/16 05:59 Labs: Laboratory Results - last 24 hr 12/01/16 12/01/16 12/01/16 06:36 09:56 11:00 WBC 1.6 L* RBC 3.38 L Hgb 8.7 L Hct 29.2 L MCV 86.4 D MCH 25.8 L MCHC 29.8 L RDW 25.2 H Plt Count 578 H MPV 10.4 Neut % (Auto) 51.8 Lymph % (Auto) 43.9 H [place] % (Auto) 2.5 Eos % (Auto) 0.5 Baso % (Auto) 1.3 Neut # 0.8 L Lymph # 0.7 L [place] # 0.0 Eos # 0.0 Baso # 0.0 APTT Sodium Potassium Chloride Carbon Dioxide Anion Gap BUN Creatinine Est GFR ( Amer) Est GFR (Non-Af Amer) POC Glucose (mg/dL) 376 H 377 H Random Glucose Calcium Phosphorus Magnesium Total Bilirubin AST ALT Alkaline Phosphatase Troponin I Total Protein Albumin Globulin Albumin/Globulin Ratio 12/01/16 12/01/16 12/01/16 12:13 12:56 14:07 WBC RBC Hgb Hct MCV MCH MCHC RDW Plt Count MPV Neut % (Auto) Lymph % (Auto) [place] % (Auto) Eos % (Auto) Baso % (Auto) Neut # Lymph # [place] # Eos # Baso # APTT Sodium Potassium Chloride Carbon Dioxide Anion Gap BUN Creatinine Est GFR ( Amer) Est GFR (Non-Af Amer) POC Glucose (mg/dL) 269 H 281 H 200 H Random Glucose Calcium Phosphorus Magnesium Total Bilirubin AST ALT Alkaline Phosphatase Troponin I Total Protein Albumin Globulin Albumin/Globulin Ratio 12/01/16 12/01/16 12/01/16 14:59 16:15 16:34 WBC RBC Hgb Hct MCV MCH MCHC RDW Plt Count MPV Neut % (Auto) Lymph % (Auto) [place] % (Auto) Eos % (Auto) Baso % (Auto) Neut # Lymph # [place] # Eos # Baso # APTT 29 Sodium Potassium Chloride Carbon Dioxide Anion Gap BUN Creatinine Est GFR ( Amer) Est GFR (Non-Af Amer) POC Glucose (mg/dL) 189 H 246 H Random Glucose Calcium Phosphorus Magnesium Total Bilirubin AST ALT Alkaline Phosphatase Troponin I Total Protein Albumin Globulin Albumin/Globulin Ratio 07/12/01/16 12/01/16 16:34 17:15 18:00 WBC RBC Hgb Hct MCV MCH MCHC RDW Plt Count MPV Neut % (Auto) Lymph % (Auto) [place] % (Auto) Eos % (Auto) Baso % (Auto) Neut # Lymph # [place] # Eos # Baso # APTT Sodium Potassium Chloride Carbon Dioxide Anion Gap BUN Creatinine Est GFR ( Amer) Est GFR (Non-Af Amer) POC Glucose (mg/dL) 254 H 244 H Random Glucose Calcium Phosphorus Magnesium Total Bilirubin AST ALT Alkaline Phosphatase Troponin I 146.0000 H* Total Protein Albumin Globulin Albumin/Globulin Ratio 12/01/16 12/01/16 12/01/16 18:08 18:48 19:59 WBC RBC Hgb Hct MCV MCH MCHC RDW Plt Count MPV Neut % (Auto) Lymph % (Auto) [place] % (Auto) Eos % (Auto) Baso % (Auto) Neut # Lymph # [place] # Eos # Baso # APTT Sodium Potassium Chloride Carbon Dioxide Anion Gap BUN Creatinine Est GFR ( Amer) Est GFR (Non-Af Amer) POC Glucose (mg/dL) 236 H 229 H Random Glucose Calcium Phosphorus Magnesium Total Bilirubin AST ALT Alkaline Phosphatase Troponin I 129.0000 H* Total Protein Albumin Globulin Albumin/Globulin Ratio 12/01/16 12/01/16 12/01/16 21:14 22:59 23:00 WBC RBC Hgb Hct MCV MCH MCHC RDW Plt Count MPV Neut % (Auto) Lymph % (Auto) [place] % (Auto) Eos % (Auto) Baso % (Auto) Neut # Lymph # [place] # Eos # Baso # APTT 51 H D Sodium Potassium Chloride Carbon Dioxide Anion Gap BUN Creatinine Est GFR ( Amer) Est GFR (Non-Af Amer) POC Glucose (mg/dL) 160 H 183 H Random Glucose Calcium Phosphorus Magnesium Total Bilirubin AST ALT Alkaline Phosphatase Troponin I Total Protein Albumin Globulin Albumin/Globulin Ratio 12/02/16 12/02/16 12/02/16 06:06 06:07 06:07 WBC 1.2 L* RBC 3.11 L Hgb 8.1 L Hct 24.8 L MCV 79.8 L D MCH 26.1 L MCHC 32.7 L RDW 25.1 H Plt Count 280 D MPV 9.9 Neut % (Auto) 60.0 Lymph % (Auto) 36.2 [place] % (Auto) 3.3 Eos % (Auto) 0.2 Baso % (Auto) 0.3 Neut # 0.7 L Lymph # 0.4 L [place] # 0.0 Eos # 0.0 Baso # 0.0 APTT 42 H D Sodium 139 Potassium 4.7 Chloride 103 Carbon Dioxide 16 L Anion Gap 25 H BUN 53 H Creatinine 1.9 H Est GFR ( Amer) 42 Est GFR (Non-Af Amer) 35 POC Glucose (mg/dL) Random Glucose 244 H Calcium 8.5 L Phosphorus 5.9 H Magnesium 2.1 Total Bilirubin 0.7 AST 137 H D ALT 120 H D Alkaline Phosphatase 132 H D Troponin I Total Protein 6.7 Albumin 3.1 L Globulin 3.6 Albumin/Globulin Ratio 0.9 L Assessment & Plan (1) Coagulopathy Assessment and Plan: continue chf treatment will need cath ekg will follow Status: Acute (2) Non-STEMI (non-ST elevated myocardial infarction) Status: Acute (3) CHF (congestive heart failure) Status: Chronic
[2016-12-02] MEDS: (Novolin R) Insulin Human Regular 100 units/ml vial SC SCH ×4 (08:07→22:15)
[2016-12-02 08:31] LABS: ARTERIAL BLOOD GAS MODE BiPAP; ARTERIAL BLOOD HGB O2 SAT 97.1 % (95.0-98.0); CARBOXYHEMOGLOBIN 1.6 % (0.5-1.5); DRAW SITE RBA; HHB 0.4 % (0.0-5.0); METHEMOGLOBIN 0.9 % (0.0-3.0)
[2016-12-02] MEDS: MethylPREDNISolone 40 mg Vial IVP SCH ×2 (09:17→21:43)
--- NOTE | 2016-12-02 10:02 | RAD ---
HISTORY: chf COMPARISON: Comparison made with earlier film same day (12/01/2016 at 0255 hours). Comparison also made with prior CTA chest 09/17/2016. FINDINGS: LUNGS: In situ right-sided PICC line with tip in the SVC. . The interval slight improvement diffuse bilateral infiltrates that may have represented pulmonary edema/CHF. . Lung alba remaining overinflated consistent with underlying emphysema seen to better advantage on prior CTA chest 09/17/2016 Mild biapical pleural thickening PLEURA: As above. No reyes reyes reyes significant pleural effusion identified, no pneumothorax apparent. CARDIOVASCULAR: Heart size is upper limits of normal. Aorta is slightly ectatic and uncoiled. OSSEOUS STRUCTURES: No significant abnormalities. VISUALIZED UPPER ABDOMEN: Normal. OTHER FINDINGS: None. IMPRESSION: Interval slight improvement diffuse bilateral infiltrates which may represent mild pulmonary edema/CHF. Mild cardiomegaly. Hyperinflation consistent with underlying emphysema. In situ PICC line as above.
--- NOTE | 2016-12-02 10:05 | RAD ---
HISTORY: r/o infiltrate bed 10 COMPARISON: Comparison chest 09/26/2016. Comparison also made with CTA chest dated 09/17/2016 FINDINGS: LUNGS: Re- demonstrated is in situ right-sided PICC line with tip in the SVC. Mild diffuse bilateral infiltrates the appearance which suggests underlying pulmonary edema/CHF however underlying pneumonia not excluded Mild biapical pleural thickening right greater than left PLEURA: No significant pleural effusion identified, no pneumothorax apparent. CARDIOVASCULAR: Heart size is mildly enlarged. Aorta is ectatic and uncoiled. OSSEOUS STRUCTURES: No significant abnormalities. VISUALIZED UPPER ABDOMEN: Normal. OTHER FINDINGS: None. Listen IMPRESSION: Re- demonstrated is in situ right-sided PICC line with tip in the SVC Mild diffuse bilateral infiltrates the appearance which suggests underlying pulmonary edema/CHF however underlying pneumonia not excluded Mild biapical pleural thickening right greater than left
[2016-12-02] MEDS: Heparin25000 units/250ml 1/2NS 25,000 UNITS/250 ML BAG IV PRN (11:55)
--- NOTE | 2016-12-02 12:52 | CP.PCM.PN ---
Subjective - Date & Time of Evaluation Date of Evaluation: 12/02/16 Time of Evaluation: 13:50 - Subjective Subjective: clinically same iv rx in progress Objective - Vital Signs/Intake and Output Vital Signs (last 24 hours): Temp Pulse Resp BP Pulse Ox 97.5 F L 97 H 20 114/69 100 12/02/16 12:00 12/02/16 12:00 12/02/16 12:00 12/02/16 12:00 12/02/16 12:00 Intake and Output: 12/02/16 12/02/16 06:59 18:59 Intake Total 623.2 134.8 Output Total 325 280 Balance 298.2 -145.2 - Medications Medications: Current Medications Albuterol/Ipratropium (Duoneb 3 Mg/0.5 Mg (3 Ml) Ud) 3 ml INH RQ6 [facility] Last Admin: 12/02/16 07:59 Dose: 3 ml Aspirin (Aspirin Supp) 300 mg ND DAILY [facility] Last Admin: 12/02/16 09:21 Dose: 300 mg Famotidine (Pepcid) 20 mg IVP DAILY [facility] Last Admin: 12/02/16 09:19 Dose: 20 mg Furosemide (Lasix) 40 mg IVP DAILY [facility] Last Admin: 12/02/16 09:19 Dose: 40 mg Ceftriaxone Sodium (Rocephin Iv 1 Gm Duplex) 50 mls @ 100 mls/hr IVPB Q24H [facility] Last Admin: 12/02/16 03:00 Dose: 100 mls/hr Heparin Sodium/Sodium Chloride (Heparin 43743 Units/250ml 1/2 Normal Saline) 25 ,000 units in 250 mls @ 7.947 mls/hr IV .Q24H PRN; Protocol; 12 UNITS/KG/HR PRN Reason: PROTOCOL Last Admin: 12/02/16 11:55 Dose: 18 units/kg/hr, 11.92 mls/hr Insulin Human Regular (Novolin R) 0 unit SC ACHS [facility] PRN Reason: Protocol Last Admin: 12/02/16 11:58 Dose: 3 unit Methylprednisolone (Solu-Medrol) 20 mg IVP Q12 [facility] Last Admin: 12/02/16 09:17 Dose: 20 mg Metoprolol Tartrate (Lopressor) 2.5 mg IVP Q8 [facility] Last Admin: 12/02/16 05:45 Dose: 2.5 mg Nitroglycerin (Nitro-Bid 2% Oint) 1 ea TOP Q6 [facility] Last Admin: 12/02/16 11:59 Dose: 1 ea - Labs Labs: 12/02/16 06:07 12/02/16 06:06 PT 13.7 SECONDS (9.7-12.2) H 12/01/16 02:35 INR 1.2 12/01/16 02:35 APTT 42 SECONDS (21-34) H D 12/02/16 06:07 - Constitutional Appears: Well - Head Exam Head Exam: ATRAUMATIC, NORMAL INSPECTION, NORMOCEPHALIC - Eye Exam Eye Exam: EOMI, Normal appearance, PERRL Pupil Exam: NORMAL ACCOMODATION, PERRL - ENT Exam ENT Exam: Mucous Membranes Moist, Normal Exam - Neck Exam Neck Exam: Full ROM, Normal Inspection. absent: Lymphadenopathy - Respiratory Exam Respiratory Exam: Decreased Breath Sounds - Cardiovascular Exam Cardiovascular Exam: REGULAR RHYTHM, +S1, +S2. absent: Murmur - GI/Abdominal Exam GI & Abdominal Exam: Soft, Diminished Bowel Sounds - Rectal Exam Rectal Exam: Deferred - Neurological Exam Neurological Exam: Alert Assessment and Plan (1) Acute respiratory failure Status: Acute (2) Anemia Status: Acute (3) Bacteremia due to methicillin resistant Staphylococcus aureus Status: Acute (4) Chest pain Status: Acute (5) Coagulopathy Status: Acute (6) Diabetes mellitus with ulcer of ankle Status: Acute (7) Diabetes mellitus, new onset Status: Acute (8) Dyspnea Status: Acute (9) Gastrointestinal hemorrhage Status: Acute (10) Infected ulcer of skin Status: Acute (11) MDS (myelodysplastic syndrome) Status: Acute (12) Neutropenia Status: Acute (13) Non-STEMI (non-ST elevated myocardial infarction) Status: Acute (14) Non-healing ulcer of foot Status: Acute (15) PAD (peripheral artery disease) Status: Acute (16) Pancytopenia Status: Acute (17) Pneumonia Status: Acute (18) Pneumonia Status: Acute (19) Prophylactic measure Status: Acute (20) Sepsis Status: Acute (21) CAD (coronary artery disease) Status: Chronic (22) CHF (congestive heart failure) Status: Chronic (23) Diabetes mellitus Status: Chronic - Assessment and Plan (Free Text) Plan: [facility]ana iv abx ivf as ordered meds reviewed savana same f/u labs dr ferrara
--- NOTE | 2016-12-02 16:14 | CP.PCM.PN ---
Subjective - Date & Time of Evaluation Date of Evaluation: 12/02/16 Time of Evaluation: 14:00 - Subjective Subjective: Feeling better Objective - Vital Signs/Intake and Output Vital Signs (last 24 hours): Temp Pulse Resp BP Pulse Ox 97.5 F L 109 H 22 110/71 97 12/02/16 12:00 12/02/16 15:00 12/02/16 15:00 12/02/16 15:00 12/02/16 15:00 Intake and Output: 12/02/16 12/02/16 06:59 18:59 Intake Total 623.2 170.5 Output Total 325 450 Balance 298.2 -279.5 - Medications Medications: Current Medications Albuterol/Ipratropium (Duoneb 3 Mg/0.5 Mg (3 Ml) Ud) 3 ml INH RQ6 [facility] Last Admin: 12/02/16 13:18 Dose: 3 ml Aspirin (Aspirin Supp) 300 mg MD DAILY [facility] Last Admin: 12/02/16 09:21 Dose: 300 mg Famotidine (Pepcid) 20 mg IVP DAILY [facility] Last Admin: 12/02/16 09:19 Dose: 20 mg Furosemide (Lasix) 40 mg IVP DAILY [facility] Last Admin: 12/02/16 09:19 Dose: 40 mg Ceftriaxone Sodium (Rocephin Iv 1 Gm Duplex) 50 mls @ 100 mls/hr IVPB Q24H [facility] Last Admin: 12/02/16 03:00 Dose: 100 mls/hr Heparin Sodium/Sodium Chloride (Heparin 21760 Units/250ml 1/2 Normal Saline) 25 ,000 units in 250 mls @ 7.947 mls/hr IV .Q24H PRN; Protocol; 12 UNITS/KG/HR PRN Reason: PROTOCOL Last Admin: 12/02/16 11:55 Dose: 18 units/kg/hr, 11.92 mls/hr Insulin Human Regular (Novolin R) 0 unit SC ACHS [facility] PRN Reason: Protocol Last Admin: 12/02/16 11:58 Dose: 3 unit Methylprednisolone (Solu-Medrol) 20 mg IVP Q12 [facility] Last Admin: 12/02/16 09:17 Dose: 20 mg Metoprolol Tartrate (Lopressor) 2.5 mg IVP Q8 [facility] Last Admin: 12/02/16 05:45 Dose: 2.5 mg Nitroglycerin (Nitro-Bid 2% Oint) 1 ea TOP Q6 [facility] Last Admin: 12/02/16 11:59 Dose: 1 ea - Labs Labs: 12/02/16 06:07 12/02/16 06:06 PT 13.7 SECONDS (9.7-12.2) H 12/01/16 02:35 INR 1.2 12/01/16 02:35 APTT 42 SECONDS (21-34) H D 12/02/16 06:07 - Head Exam Head Exam: ATRAUMATIC - Eye Exam Eye Exam: Normal appearance - ENT Exam ENT Exam: Mucous Membranes Dry - Respiratory Exam Respiratory Exam: NORMAL BREATHING PATTERN - Cardiovascular Exam Cardiovascular Exam: +S1, +S2 - GI/Abdominal Exam GI & Abdominal Exam: Normal Bowel Sounds - Extremities Exam Extremities Exam: Normal Inspection Assessment and Plan (1) Neutropenia Assessment & Plan: moderate secondary to MDS and decitabine treatment no growth factor support indicated Status: Acute (2) Anemia Assessment & Plan: MDS, chronic disease, CKD, decitabine transfusion support PRN Status: Acute (3) Coagulopathy Assessment & Plan: anticoagulation Status: Acute (4) MDS (myelodysplastic syndrome) Assessment & Plan: on decitabine transfusion support Status: Acute
--- NOTE | 2016-12-02 17:57 | CP.CCUPN ---
CCU Subjective - Physician Review Events Since Last Encounter (Free Text): 12/02/16 17:56 71-year-old male with history of COPD hypertension, CAD, heart failure, acute non-ST elevation AR complicated with the cardiac shock now. Patient is constantly on BiPAP. A recurring high oxygen. And respiratory support needed. Currently he has no chest pain. But agitated. Vital signs reviewed No neck vein distention noted Diffuse bilateral rales noted CVS regular heart sound, no murmur noted Abdomen soft, nontender. 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 Patient is at high risk. Cardiology on board. Patient is at very high risk for poor outcome. CCU Objective - Vital Signs / Intake & Output Vital Signs (Last 4 hours): Vital Signs Temp Pulse Resp BP Pulse Ox 12/02/16 17:00 112/67 12/02/16 16:59 102 H 23 100 12/02/16 16:00 97.9 F 107 H 22 115/72 99 12/02/16 15:00 109 H 22 110/71 97 12/02/16 14:00 104 H 18 106/63 98 Intake and Output (Last 8hrs): Intake & Output 12/02/16 12/02/16 12/02/16 06:59 14:59 22:59 Intake Total 384.8 158.6 85.7 Output Total 180 400 140 Balance 204.8 -241.4 -54.3 Weight 146 lb Intake: IV 66 50 Intake, IV Amount 384.8 92.6 35.7 Right 84.8 92.6 35.7 Right PICC 300 Output: Urine 180 400 140 Urethral ([place]) 180 400 140 Other: # Bowel Movements 0 - Medications Active Medications: Active Medications Generic Name Dose Route Start Last Admin Trade Name Freq PRN Reason Stop Dose Admin Albuterol/Ipratropium 3 ml 12/01/16 08:00 12/02/16 13:18 Duoneb 3 Mg/0.5 Mg (3 Ml) Ud INH 3 ml RQ6 LOUANN Administration Aspirin 300 mg 12/02/16 10:00 12/02/16 09:21 Aspirin Supp [place] 300 mg DAILY LOUANN Administration Famotidine 20 mg 12/01/16 10:00 12/02/16 09:19 Pepcid IVP 20 mg DAILY LOUANN Administration Furosemide 40 mg 12/02/16 10:00 12/02/16 09:19 Lasix IVP 40 mg DAILY LOUANN Administration Ceftriaxone Sodium 50 mls @ 100 mls/hr 12/02/16 03:00 12/02/16 03:00 Rocephin Iv 1 Gm Duplex IVPB 100 mls/hr Q24H LOUANN Administration Heparin Sodium/Sodium Chloride 25,000 units in 250 mls @ 7.947 mls/hr 10:04 12/02/16 16:00 Heparin 65052 Units/250ml 1/2 Normal Saline IV 20 units/kg/hr .Q24H PRN 13.245 mls/hr PROTOCOL Titration Protocol 12 UNITS/KG/HR Insulin Human Regular 0 unit 12/02/16 07:30 12/02/16 16:38 Novolin R SC 4 unit ACHS LOUANN Administration Protocol Methylprednisolone 20 mg 12/02/16 10:00 12/02/16 09:17 Solu-Medrol IVP 20 mg Q12 LOUANN Administration Metoprolol Tartrate 2.5 mg 12/01/16 22:00 12/02/16 14:30 Lopressor IVP 2.5 mg Q8 LOUANN Administration Nitroglycerin 1 ea 12/01/16 12:00 12/02/16 17:15 Nitro-Bid 2% Oint TOP 1 ea Q6 LOUANN Administration - Patient Studies Lab Studies: Microbiology Studies 12/01/16 16:00 Blood Culture - Preliminary Blood NO GROWTH AFTER 24 HOURS 12/01/16 16:00 S.aureus & Coag-Neg Staph PNA FISH - Final Blood Blood Culture - Preliminary Gram Positive Cocci Gram Stain - Final 12/01/16 10:00 Urine Culture - Final Urine No Growth (<1,000 CFU/ML) 12/01/16 10:00 MRSA Culture (Admit) - Final Nose MRSA NOT DETECTED Lab Studies 12/02/16 12/02/16 12/02/16 Range/Units 16:35 15:59 11:15 WBC (4.8-10.8) K/uL RBC (4.40-5.90) Mil/uL Hgb (12.0-18.0) g/dL Hct (35.0-51.0) % MCV (80.0-94.0) fL MCH (27.0-31.0) pg MCHC (33.0-37.0) g/dL RDW (11.5-14.5) % Plt Count (130-400) K/uL MPV (7.2-11.7) fL Neut % (Auto) (50.0-75.0) % Lymph % (Auto) (20.0-40.0) % [place] % (Auto) (0.0-10.0) % Eos % (Auto) (0.0-4.0) % Baso % (Auto) (0.0-2.0) % Neut # (1.8-7.0) K/uL Lymph # (1.0-4.3) K/uL [place] # (0.0-0.8) K/uL Eos # (0.0-0.7) K/uL Baso # (0.0-0.2) K/uL APTT 44 H (21-34) SECONDS Puncture Site pCO2 (35-45) mm/Hg pO2 (80-100) mm/Hg HCO3 (21-28) mmol/L ABG pH (7.35-7.45) ABG Total CO2 (22-28) mmol/L ABG O2 Saturation (95-98) % ABG Base Excess (-2.0-3.0) mmol/L ABG Hemoglobin (11.7-17.4) g/dL ABG Carboxyhemoglobin (0.5-1.5) % POC ABG HHb (Measured) (0.0-5.0) % ABG Methemoglobin (0.0-3.0) % Jose Test A-a O2 Difference mm/Hg Respiratory Index Hgb O2 Saturation (95.0-98.0) % Vent Mode FiO2 % Inspiratory BiPAP Expiratory BiPAP Sodium (132-148) mmol/L Potassium (3.6-5.2) mmol/L Chloride (98-107) mmol/L Carbon Dioxide (22-30) mmol/L Anion Gap (10-20) BUN (9-20) mg/dL Creatinine (0.8-1.5) MG/DL Est GFR ( Amer) Est GFR (Non-Af Amer) POC Glucose (mg/dL) 330 H 270 H (65-110) mg/dL Random Glucose (75-110) mg/dL Calcium (8.6-10.4) mg/dl Phosphorus (2.5-4.5) mg/dL Magnesium (1.6-2.3) mg/dL Total Bilirubin (0.2-1.3) mg/dL AST (17-59) U/L ALT (21-72) U/L Alkaline Phosphatase (38-126) U/L Total Creatine Kinase (55-170) U/L CK-MB (Mass) (0.0-3.38) ng/mL Troponin I (0.00-0.120) ng/mL Troponin I, Quant (0.00-0.120) ng/mL Total Protein (6.3-8.3) g/dL Albumin (3.5-5.0) g/dL Globulin (2.2-3.9) gm/dL Albumin/Globulin Ratio (1.0-2.1) 12/02/16 12/02/16 12/02/16 Range/Units 08:28 07:29 06:07 WBC (4.8-10.8) K/uL RBC (4.40-5.90) Mil/uL Hgb (12.0-18.0) g/dL Hct (35.0-51.0) % MCV (80.0-94.0) fL MCH (27.0-31.0) pg MCHC (33.0-37.0) g/dL RDW (11.5-14.5) % Plt Count (130-400) K/uL MPV (7.2-11.7) fL Neut % (Auto) (50.0-75.0) % Lymph % (Auto) (20.0-40.0) % [place] % (Auto) (0.0-10.0) % Eos % (Auto) (0.0-4.0) % Baso % (Auto) (0.0-2.0) % Neut # (1.8-7.0) K/uL Lymph # (1.0-4.3) K/uL [place] # (0.0-0.8) K/uL Eos # (0.0-0.7) K/uL Baso # (0.0-0.2) K/uL APTT 42 H D (21-34) SECONDS Puncture Site Rba pCO2 23 L (35-45) mm/Hg pO2 183 H (80-100) mm/Hg HCO3 18.0 L (21-28) mmol/L ABG pH 7.41 (7.35-7.45) ABG Total CO2 15.3 L (22-28) mmol/L ABG O2 Saturation 99.6 H (95-98) % ABG Base Excess -8.9 L (-2.0-3.0) mmol/L ABG Hemoglobin 8.1 L (11.7-17.4) g/dL ABG Carboxyhemoglobin 1.6 H (0.5-1.5) % POC ABG HHb (Measured) 0.4 (0.0-5.0) % ABG Methemoglobin 0.9 (0.0-3.0) % Jose Test Na A-a O2 Difference 216.0 mm/Hg Respiratory Index 1.2 Hgb O2 Saturation 97.1 (95.0-98.0) % Vent Mode Bipap FiO2 60.0 % Inspiratory BiPAP 14 Expiratory BiPAP 7 Sodium (132-148) mmol/L Potassium (3.6-5.2) mmol/L Chloride (98-107) mmol/L Carbon Dioxide (22-30) mmol/L Anion Gap (10-20) BUN (9-20) mg/dL Creatinine (0.8-1.5) MG/DL Est GFR ( Amer) Est GFR (Non-Af Amer) POC Glucose (mg/dL) 323 H (65-110) mg/dL Random Glucose (75-110) mg/dL Calcium (8.6-10.4) mg/dl Phosphorus (2.5-4.5) mg/dL Magnesium (1.6-2.3) mg/dL Total Bilirubin (0.2-1.3) mg/dL AST (17-59) U/L ALT (21-72) U/L Alkaline Phosphatase (38-126) U/L Total Creatine Kinase (55-170) U/L CK-MB (Mass) (0.0-3.38) ng/mL Troponin I (0.00-0.120) ng/mL Troponin I, Quant (0.00-0.120) ng/mL Total Protein (6.3-8.3) g/dL Albumin (3.5-5.0) g/dL Globulin (2.2-3.9) gm/dL Albumin/Globulin Ratio (1.0-2.1) 12/02/16 12/02/16 12/02/16 Range/Units 06:07 06:06 06:06 WBC 1.2 L* (4.8-10.8) K/uL RBC 3.11 L (4.40-5.90) Mil/uL Hgb 8.1 L (12.0-18.0) g/dL Hct 24.8 L (35.0-51.0) % MCV 79.8 L D (80.0-94.0) fL MCH 26.1 L (27.0-31.0) pg MCHC 32.7 L (33.0-37.0) g/dL RDW 25.1 H (11.5-14.5) % Plt Count 280 D (130-400) K/uL MPV 9.9 (7.2-11.7) fL Neut % (Auto) 60.0 (50.0-75.0) % Lymph % (Auto) 36.2 (20.0-40.0) % [place] % (Auto) 3.3 (0.0-10.0) % Eos % (Auto) 0.2 (0.0-4.0) % Baso % (Auto) 0.3 (0.0-2.0) % Neut # 0.7 L (1.8-7.0) K/uL Lymph # 0.4 L (1.0-4.3) K/uL [place] # 0.0 (0.0-0.8) K/uL Eos # 0.0 (0.0-0.7) K/uL Baso # 0.0 (0.0-0.2) K/uL APTT (21-34) SECONDS Puncture Site pCO2 (35-45) mm/Hg pO2 (80-100) mm/Hg HCO3 (21-28) mmol/L ABG pH (7.35-7.45) ABG Total CO2 (22-28) mmol/L ABG O2 Saturation (95-98) % ABG Base Excess (-2.0-3.0) mmol/L ABG Hemoglobin (11.7-17.4) g/dL ABG Carboxyhemoglobin (0.5-1.5) % POC ABG HHb (Measured) (0.0-5.0) % ABG Methemoglobin (0.0-3.0) % Jose Test A-a O2 Difference mm/Hg Respiratory Index Hgb O2 Saturation (95.0-98.0) % Vent Mode FiO2 % Inspiratory BiPAP Expiratory BiPAP Sodium 139 (132-148) mmol/L Potassium 4.7 (3.6-5.2) mmol/L Chloride 103 (98-107) mmol/L Carbon Dioxide 16 L (22-30) mmol/L Anion Gap 25 H (10-20) BUN 53 H (9-20) mg/dL Creatinine 1.9 H (0.8-1.5) MG/DL Est GFR ( Amer) 42 Est GFR (Non-Af Amer) 35 POC Glucose (mg/dL) (65-110) mg/dL Random Glucose 244 H (75-110) mg/dL Calcium 8.5 L (8.6-10.4) mg/dl Phosphorus 5.9 H (2.5-4.5) mg/dL Magnesium 2.1 (1.6-2.3) mg/dL Total Bilirubin 0.7 (0.2-1.3) mg/dL AST 137 H D (17-59) U/L ALT 120 H D (21-72) U/L Alkaline Phosphatase 132 H D (38-126) U/L Total Creatine Kinase 209 H (55-170) U/L CK-MB (Mass) 17.6 H (0.0-3.38) ng/mL Troponin I (0.00-0.120) ng/mL Troponin I, Quant 39.3000 H* (0.00-0.120) ng/mL Total Protein 6.7 (6.3-8.3) g/dL Albumin 3.1 L (3.5-5.0) g/dL Globulin 3.6 (2.2-3.9) gm/dL Albumin/Globulin Ratio 0.9 L (1.0-2.1) 12/01/16 12/01/16 12/01/16 Range/Units 23:00 22:59 21:14 WBC (4.8-10.8) K/uL RBC (4.40-5.90) Mil/uL Hgb (12.0-18.0) g/dL Hct (35.0-51.0) % MCV (80.0-94.0) fL MCH (27.0-31.0) pg MCHC (33.0-37.0) g/dL RDW (11.5-14.5) % Plt Count (130-400) K/uL MPV (7.2-11.7) fL Neut % (Auto) (50.0-75.0) % Lymph % (Auto) (20.0-40.0) % [place] % (Auto) (0.0-10.0) % Eos % (Auto) (0.0-4.0) % Baso % (Auto) (0.0-2.0) % Neut # (1.8-7.0) K/uL Lymph # (1.0-4.3) K/uL [place] # (0.0-0.8) K/uL Eos # (0.0-0.7) K/uL Baso # (0.0-0.2) K/uL APTT 51 H D (21-34) SECONDS Puncture Site pCO2 (35-45) mm/Hg pO2 (80-100) mm/Hg HCO3 (21-28) mmol/L ABG pH (7.35-7.45) ABG Total CO2 (22-28) mmol/L ABG O2 Saturation (95-98) % ABG Base Excess (-2.0-3.0) mmol/L ABG Hemoglobin (11.7-17.4) g/dL ABG Carboxyhemoglobin (0.5-1.5) % POC ABG HHb (Measured) (0.0-5.0) % ABG Methemoglobin (0.0-3.0) % Jose Test A-a O2 Difference mm/Hg Respiratory Index Hgb O2 Saturation (95.0-98.0) % Vent Mode FiO2 % Inspiratory BiPAP Expiratory BiPAP Sodium (132-148) mmol/L Potassium (3.6-5.2) mmol/L Chloride (98-107) mmol/L Carbon Dioxide (22-30) mmol/L Anion Gap (10-20) BUN (9-20) mg/dL Creatinine (0.8-1.5) MG/DL Est GFR ( Amer) Est GFR (Non-Af Amer) POC Glucose (mg/dL) 183 H 160 H (65-110) mg/dL Random Glucose (75-110) mg/dL Calcium (8.6-10.4) mg/dl Phosphorus (2.5-4.5) mg/dL Magnesium (1.6-2.3) mg/dL Total Bilirubin (0.2-1.3) mg/dL AST (17-59) U/L ALT (21-72) U/L Alkaline Phosphatase (38-126) U/L Total Creatine Kinase (55-170) U/L CK-MB (Mass) (0.0-3.38) ng/mL Troponin I (0.00-0.120) ng/mL Troponin I, Quant (0.00-0.120) ng/mL Total Protein (6.3-8.3) g/dL Albumin (3.5-5.0) g/dL Globulin (2.2-3.9) gm/dL Albumin/Globulin Ratio (1.0-2.1) 12/01/16 12/01/16 12/01/16 Range/Units 19:59 18:48 18:08 WBC (4.8-10.8) K/uL RBC (4.40-5.90) Mil/uL Hgb (12.0-18.0) g/dL Hct (35.0-51.0) % MCV (80.0-94.0) fL MCH (27.0-31.0) pg MCHC (33.0-37.0) g/dL RDW (11.5-14.5) % Plt Count (130-400) K/uL MPV (7.2-11.7) fL Neut % (Auto) (50.0-75.0) % Lymph % (Auto) (20.0-40.0) % [place] % (Auto) (0.0-10.0) % Eos % (Auto) (0.0-4.0) % Baso % (Auto) (0.0-2.0) % Neut # (1.8-7.0) K/uL Lymph # (1.0-4.3) K/uL [place] # (0.0-0.8) K/uL Eos # (0.0-0.7) K/uL Baso # (0.0-0.2) K/uL APTT (21-34) SECONDS Puncture Site pCO2 (35-45) mm/Hg pO2 (80-100) mm/Hg HCO3 (21-28) mmol/L ABG pH (7.35-7.45) ABG Total CO2 (22-28) mmol/L ABG O2 Saturation (95-98) % ABG Base Excess (-2.0-3.0) mmol/L ABG Hemoglobin (11.7-17.4) g/dL ABG Carboxyhemoglobin (0.5-1.5) % POC ABG HHb (Measured) (0.0-5.0) % ABG Methemoglobin (0.0-3.0) % Jose Test A-a O2 Difference mm/Hg Respiratory Index Hgb O2 Saturation (95.0-98.0) % Vent Mode FiO2 % Inspiratory BiPAP Expiratory BiPAP Sodium (132-148) mmol/L Potassium (3.6-5.2) mmol/L Chloride (98-107) mmol/L Carbon Dioxide (22-30) mmol/L Anion Gap (10-20) BUN (9-20) mg/dL Creatinine (0.8-1.5) MG/DL Est GFR ( Amer) Est GFR (Non-Af Amer) POC Glucose (mg/dL) 229 H 236 H (65-110) mg/dL Random Glucose (75-110) mg/dL Calcium (8.6-10.4) mg/dl Phosphorus (2.5-4.5) mg/dL Magnesium (1.6-2.3) mg/dL Total Bilirubin (0.2-1.3) mg/dL AST (17-59) U/L ALT (21-72) U/L Alkaline Phosphatase (38-126) U/L Total Creatine Kinase (55-170) U/L CK-MB (Mass) (0.0-3.38) ng/mL Troponin I 129.0000 H* (0.00-0.120) ng/mL Troponin I, Quant (0.00-0.120) ng/mL Total Protein (6.3-8.3) g/dL Albumin (3.5-5.0) g/dL Globulin (2.2-3.9) gm/dL Albumin/Globulin Ratio (1.0-2.1) 12/01/16 Range/Units 18:00 WBC (4.8-10.8) K/uL RBC (4.40-5.90) Mil/uL Hgb (12.0-18.0) g/dL Hct (35.0-51.0) % MCV (80.0-94.0) fL MCH (27.0-31.0) pg MCHC (33.0-37.0) g/dL RDW (11.5-14.5) % Plt Count (130-400) K/uL MPV (7.2-11.7) fL Neut % (Auto) (50.0-75.0) % Lymph % (Auto) (20.0-40.0) % [place] % (Auto) (0.0-10.0) % Eos % (Auto) (0.0-4.0) % Baso % (Auto) (0.0-2.0) % Neut # (1.8-7.0) K/uL Lymph # (1.0-4.3) K/uL [place] # (0.0-0.8) K/uL Eos # (0.0-0.7) K/uL Baso # (0.0-0.2) K/uL APTT (21-34) SECONDS Puncture Site pCO2 (35-45) mm/Hg pO2 (80-100) mm/Hg HCO3 (21-28) mmol/L ABG pH (7.35-7.45) ABG Total CO2 (22-28) mmol/L ABG O2 Saturation (95-98) % ABG Base Excess (-2.0-3.0) mmol/L ABG Hemoglobin (11.7-17.4) g/dL ABG Carboxyhemoglobin (0.5-1.5) % POC ABG HHb (Measured) (0.0-5.0) % ABG Methemoglobin (0.0-3.0) % Jose Test A-a O2 Difference mm/Hg Respiratory Index Hgb O2 Saturation (95.0-98.0) % Vent Mode FiO2 % Inspiratory BiPAP Expiratory BiPAP Sodium (132-148) mmol/L Potassium (3.6-5.2) mmol/L Chloride (98-107) mmol/L Carbon Dioxide (22-30) mmol/L Anion Gap (10-20) BUN (9-20) mg/dL Creatinine (0.8-1.5) MG/DL Est GFR ( Amer) Est GFR (Non-Af Amer) POC Glucose (mg/dL) 244 H (65-110) mg/dL Random Glucose (75-110) mg/dL Calcium (8.6-10.4) mg/dl Phosphorus (2.5-4.5) mg/dL Magnesium (1.6-2.3) mg/dL Total Bilirubin (0.2-1.3) mg/dL AST (17-59) U/L ALT (21-72) U/L Alkaline Phosphatase (38-126) U/L Total Creatine Kinase (55-170) U/L CK-MB (Mass) (0.0-3.38) ng/mL Troponin I (0.00-0.120) ng/mL Troponin I, Quant (0.00-0.120) ng/mL Total Protein (6.3-8.3) g/dL Albumin (3.5-5.0) g/dL Globulin (2.2-3.9) gm/dL Albumin/Globulin Ratio (1.0-2.1) Laboratory Results - last 24 hr 12/01/16 12/01/16 12/01/16 18:00 18:08 18:48 WBC RBC Hgb Hct MCV MCH MCHC RDW Plt Count MPV Neut % (Auto) Lymph % (Auto) [place] % (Auto) Eos % (Auto) Baso % (Auto) Neut # Lymph # [place] # Eos # Baso # APTT Puncture Site pCO2 pO2 HCO3 ABG pH ABG Total CO2 ABG O2 Saturation ABG Base Excess ABG Hemoglobin ABG Carboxyhemoglobin POC ABG HHb (Measured) ABG Methemoglobin Jose Test A-a O2 Difference Respiratory Index Hgb O2 Saturation Vent Mode FiO2 Inspiratory BiPAP Expiratory BiPAP Sodium Potassium Chloride Carbon Dioxide Anion Gap BUN Creatinine Est GFR ( Amer) Est GFR (Non-Af Amer) POC Glucose (mg/dL) 244 H 236 H Random Glucose Calcium Phosphorus Magnesium Total Bilirubin AST ALT Alkaline Phosphatase Total Creatine Kinase CK-MB (Mass) Troponin I 129.0000 H* Troponin I, Quant Total Protein Albumin Globulin Albumin/Globulin Ratio 12/01/16 12/01/16 12/01/16 19:59 21:14 22:59 WBC RBC Hgb Hct MCV MCH MCHC RDW Plt Count MPV Neut % (Auto) Lymph % (Auto) [place] % (Auto) Eos % (Auto) Baso % (Auto) Neut # Lymph # [place] # Eos # Baso # APTT Puncture Site pCO2 pO2 HCO3 ABG pH ABG Total CO2 ABG O2 Saturation ABG Base Excess ABG Hemoglobin ABG Carboxyhemoglobin POC ABG HHb (Measured) ABG Methemoglobin Jose Test A-a O2 Difference Respiratory Index Hgb O2 Saturation Vent Mode FiO2 Inspiratory BiPAP Expiratory BiPAP Sodium Potassium Chloride Carbon Dioxide Anion Gap BUN Creatinine Est GFR ( Amer) Est GFR (Non-Af Amer) POC Glucose (mg/dL) 229 H 160 H 183 H Random Glucose Calcium Phosphorus Magnesium Total Bilirubin AST ALT Alkaline Phosphatase Total Creatine Kinase CK-MB (Mass) Troponin I Troponin I, Quant Total Protein Albumin Globulin Albumin/Globulin Ratio 12/01/16 12/02/16 12/02/16 23:00 06:06 06:06 WBC RBC Hgb Hct MCV MCH MCHC RDW Plt Count MPV Neut % (Auto) Lymph % (Auto) [place] % (Auto) Eos % (Auto) Baso % (Auto) Neut # Lymph # [place] # Eos # Baso # APTT 51 H D Puncture Site pCO2 pO2 HCO3 ABG pH ABG Total CO2 ABG O2 Saturation ABG Base Excess ABG Hemoglobin ABG Carboxyhemoglobin POC ABG HHb (Measured) ABG Methemoglobin Jose Test A-a O2 Difference Respiratory Index Hgb O2 Saturation Vent Mode FiO2 Inspiratory BiPAP Expiratory BiPAP Sodium 139 Potassium 4.7 Chloride 103 Carbon Dioxide 16 L Anion Gap 25 H BUN 53 H Creatinine 1.9 H Est GFR ( Amer) 42 Est GFR (Non-Af Amer) 35 POC Glucose (mg/dL) Random Glucose 244 H Calcium 8.5 L Phosphorus 5.9 H Magnesium 2.1 Total Bilirubin 0.7 AST 137 H D ALT 120 H D Alkaline Phosphatase 132 H D Total Creatine Kinase 209 H CK-MB (Mass) 17.6 H Troponin I Troponin I, Quant 39.3000 H* Total Protein 6.7 Albumin 3.1 L Globulin 3.6 Albumin/Globulin Ratio 0.9 L 12/02/16 12/02/16 12/02/16 06:07 06:07 07:29 WBC 1.2 L* RBC 3.11 L Hgb 8.1 L Hct 24.8 L MCV 79.8 L D MCH 26.1 L MCHC 32.7 L RDW 25.1 H Plt Count 280 D MPV 9.9 Neut % (Auto) 60.0 Lymph % (Auto) 36.2 [place] % (Auto) 3.3 Eos % (Auto) 0.2 Baso % (Auto) 0.3 Neut # 0.7 L Lymph # 0.4 L [place] # 0.0 Eos # 0.0 Baso # 0.0 APTT 42 H D Puncture Site pCO2 pO2 HCO3 ABG pH ABG Total CO2 ABG O2 Saturation ABG Base Excess ABG Hemoglobin ABG Carboxyhemoglobin POC ABG HHb (Measured) ABG Methemoglobin Jose Test A-a O2 Difference Respiratory Index Hgb O2 Saturation Vent Mode FiO2 Inspiratory BiPAP Expiratory BiPAP Sodium Potassium Chloride Carbon Dioxide Anion Gap BUN Creatinine Est GFR ( Amer) Est GFR (Non-Af Amer) POC Glucose (mg/dL) 323 H Random Glucose Calcium Phosphorus Magnesium Total Bilirubin AST ALT Alkaline Phosphatase Total Creatine Kinase CK-MB (Mass) Troponin I Troponin I, Quant Total Protein Albumin Globulin Albumin/Globulin Ratio 12/02/16 12/02/16 12/02/16 08:28 11:15 15:59 WBC RBC Hgb Hct MCV MCH MCHC RDW Plt Count MPV Neut % (Auto) Lymph % (Auto) [place] % (Auto) Eos % (Auto) Baso % (Auto) Neut # Lymph # [place] # Eos # Baso # APTT 44 H Puncture Site Rba pCO2 23 L pO2 183 H HCO3 18.0 L ABG pH 7.41 ABG Total CO2 15.3 L ABG O2 Saturation 99.6 H ABG Base Excess -8.9 L ABG Hemoglobin 8.1 L ABG Carboxyhemoglobin 1.6 H POC ABG HHb (Measured) 0.4 ABG Methemoglobin 0.9 Jose Test Na A-a O2 Difference 216.0 Respiratory Index 1.2 Hgb O2 Saturation 97.1 Vent Mode Bipap FiO2 60.0 Inspiratory BiPAP 14 Expiratory BiPAP 7 Sodium Potassium Chloride Carbon Dioxide Anion Gap BUN Creatinine Est GFR ( Amer) Est GFR (Non-Af Amer) POC Glucose (mg/dL) 270 H Random Glucose Calcium Phosphorus Magnesium Total Bilirubin AST ALT Alkaline Phosphatase Total Creatine Kinase CK-MB (Mass) Troponin I Troponin I, Quant Total Protein Albumin Globulin Albumin/Globulin Ratio 12/02/16 16:35 WBC RBC Hgb Hct MCV MCH MCHC RDW Plt Count MPV Neut % (Auto) Lymph % (Auto) [place] % (Auto) Eos % (Auto) Baso % (Auto) Neut # Lymph # [place] # Eos # Baso # APTT Puncture Site pCO2 pO2 HCO3 ABG pH ABG Total CO2 ABG O2 Saturation ABG Base Excess ABG Hemoglobin ABG Carboxyhemoglobin POC ABG HHb (Measured) ABG Methemoglobin Jose Test A-a O2 Difference Respiratory Index Hgb O2 Saturation Vent Mode FiO2 Inspiratory BiPAP Expiratory BiPAP Sodium Potassium Chloride Carbon Dioxide Anion Gap BUN Creatinine Est GFR ( Amer) Est GFR (Non-Af Amer) POC Glucose (mg/dL) 330 H Random Glucose Calcium Phosphorus Magnesium Total Bilirubin AST ALT Alkaline Phosphatase Total Creatine Kinase CK-MB (Mass) Troponin I Troponin I, Quant Total Protein Albumin Globulin Albumin/Globulin Ratio EKG/Cardiology Studies: Cardiology / EKG Studies 12/02/16 07:16 EKG [ELECTROCARDIOGRAM] Stat Comment: Mode Of Transportation: PORTABLE Reason For Exam: [id number] Isolation: Special Contact Fingerstick Blood Sugar Results: 330 Critical Care Progress Note - Nutrition Nutrition: Nutrition Category Date Time Status Liquid Diet [DIET] Diets 12/02/16 Lunch Active
--- NOTE | 2016-12-02 18:17 | CP.PCM.CON ---
History of Present Illness - History of Present Illness History of Present Illness: Patient seen and evaluated Patient confused and most of the history obtained from the chart Non ST elevation FL CAD with hx of stents PAD Sepsis Not a candidate for Cath at this time Continue IV Heparin and ASA Past Patient History - Infectious Disease Hx of Infectious Diseases: None - Tetanus Immunizations Tetanus Immunization: Unknown - Past Medical History & Family History Past Medical History?: No - Past Social History Smoking Status: Heavy Smoker > 10 Cigarettes Daily - CARDIAC Hx Hypercholesterolemia: Yes Hx Hypertension: Yes - PULMONARY Hx Respiratory Disorders: No - NEUROLOGICAL Hx Paralysis: No - HEENT Hx HEENT Problems: No - RENAL Hx Chronic Kidney Disease: Yes Hx Kidney Stones: Yes - ENDOCRINE/METABOLIC Hx Endocrine Disorders: Yes Hx Diabetes Mellitus Type 2: Yes - HEMATOLOGICAL/ONCOLOGICAL Hx Anemia: Yes - INTEGUMENTARY Hx Dermatological Problems: Yes Hx Cellulitis: Yes - MUSCULOSKELETAL/RHEUMATOLOGICAL Hx Musculoskeletal Disorders: Yes Hx Falls: Yes - GASTROINTESTINAL Hx Gastrointestinal Disorders: No - GENITOURINARY/GYNECOLOGICAL Hx Genitourinary Disorders: No - PSYCHIATRIC Hx Substance Use: No - SURGICAL HISTORY Hx Coronary Stent: Yes - ANESTHESIA Hx Anesthesia: Yes Meds Allergies/Adverse Reactions: Allergies Allergy/AdvReac Type Severity Reaction Status Date / Time No Known Allergies Allergy Verified 09/16/16 20:22 - Medications Medications: Current Medications Albuterol/Ipratropium (Duoneb 3 Mg/0.5 Mg (3 Ml) Ud) 3 ml INH RQ6 [facility] Last Admin: 12/02/16 13:18 Dose: 3 ml Aspirin (Aspirin Supp) 300 mg OH DAILY [facility] Last Admin: 12/02/16 09:21 Dose: 300 mg Famotidine (Pepcid) 20 mg IVP DAILY [facility] Last Admin: 12/02/16 09:19 Dose: 20 mg Furosemide (Lasix) 40 mg IVP DAILY [facility] Last Admin: 12/02/16 09:19 Dose: 40 mg Ceftriaxone Sodium (Rocephin Iv 1 Gm Duplex) 50 mls @ 100 mls/hr IVPB Q24H [facility] Last Admin: 12/02/16 03:00 Dose: 100 mls/hr Heparin Sodium/Sodium Chloride (Heparin 68556 Units/250ml 1/2 Normal Saline) 25 ,000 units in 250 mls @ 7.947 mls/hr IV .Q24H PRN; Protocol; 12 UNITS/KG/HR PRN Reason: PROTOCOL Last Titration: 12/02/16 16:00 Dose: 20 units/kg/hr, 13.245 mls/hr Insulin Human Regular (Novolin R) 0 unit SC ACHS [facility] PRN Reason: Protocol Last Admin: 12/02/16 16:38 Dose: 4 unit Methylprednisolone (Solu-Medrol) 20 mg IVP Q12 [facility] Last Admin: 12/02/16 09:17 Dose: 20 mg Metoprolol Tartrate (Lopressor) 2.5 mg IVP Q8 [facility] Last Admin: 12/02/16 14:30 Dose: 2.5 mg Nitroglycerin (Nitro-Bid 2% Oint) 1 ea TOP Q6 [facility] Last Admin: 12/02/16 17:15 Dose: 1 ea Results - Vital Signs Recent Vital Signs: Last Vital Signs Temp 97.9 F 12/02/16 16:00 Pulse 102 H 12/02/16 16:59 Resp 23 12/02/16 16:59 BP 112/67 12/02/16 17:00 Pulse Ox 100 12/02/16 16:59 - Labs Result Diagrams: 12/02/16 06:07 12/02/16 06:06 Labs: Laboratory Results - last 24 hr 12/01/16 12/01/16 12/01/16 18:08 18:48 19:59 WBC RBC Hgb Hct MCV MCH MCHC RDW Plt Count MPV Neut % (Auto) Lymph % (Auto) [place] % (Auto) Eos % (Auto) Baso % (Auto) Neut # Lymph # [place] # Eos # Baso # APTT Puncture Site pCO2 pO2 HCO3 ABG pH ABG Total CO2 ABG O2 Saturation ABG Base Excess ABG Hemoglobin ABG Carboxyhemoglobin POC ABG HHb (Measured) ABG Methemoglobin Jose Test A-a O2 Difference Respiratory Index Hgb O2 Saturation Vent Mode FiO2 Inspiratory BiPAP Expiratory BiPAP Sodium Potassium Chloride Carbon Dioxide Anion Gap BUN Creatinine Est GFR ( Amer) Est GFR (Non-Af Amer) POC Glucose (mg/dL) 236 H 229 H Random Glucose Calcium Phosphorus Magnesium Total Bilirubin AST ALT Alkaline Phosphatase Total Creatine Kinase CK-MB (Mass) Troponin I 129.0000 H* Troponin I, Quant Total Protein Albumin Globulin Albumin/Globulin Ratio 12/01/16 12/01/16 12/01/16 21:14 22:59 23:00 WBC RBC Hgb Hct MCV MCH MCHC RDW Plt Count MPV Neut % (Auto) Lymph % (Auto) [place] % (Auto) Eos % (Auto) Baso % (Auto) Neut # Lymph # [place] # Eos # Baso # APTT 51 H D Puncture Site pCO2 pO2 HCO3 ABG pH ABG Total CO2 ABG O2 Saturation ABG Base Excess ABG Hemoglobin ABG Carboxyhemoglobin POC ABG HHb (Measured) ABG Methemoglobin Jose Test A-a O2 Difference Respiratory Index Hgb O2 Saturation Vent Mode FiO2 Inspiratory BiPAP Expiratory BiPAP Sodium Potassium Chloride Carbon Dioxide Anion Gap BUN Creatinine Est GFR ( Amer) Est GFR (Non-Af Amer) POC Glucose (mg/dL) 160 H 183 H Random Glucose Calcium Phosphorus Magnesium Total Bilirubin AST ALT Alkaline Phosphatase Total Creatine Kinase CK-MB (Mass) Troponin I Troponin I, Quant Total Protein Albumin Globulin Albumin/Globulin Ratio 12/02/16 12/02/16 12/02/16 06:06 06:06 06:07 WBC 1.2 L* RBC 3.11 L Hgb 8.1 L Hct 24.8 L MCV 79.8 L D MCH 26.1 L MCHC 32.7 L RDW 25.1 H Plt Count 280 D MPV 9.9 Neut % (Auto) 60.0 Lymph % (Auto) 36.2 [place] % (Auto) 3.3 Eos % (Auto) 0.2 Baso % (Auto) 0.3 Neut # 0.7 L Lymph # 0.[address] # 0.0 Eos # 0.0 Baso # 0.0 APTT Puncture Site pCO2 pO2 HCO3 ABG pH ABG Total CO2 ABG O2 Saturation ABG Base Excess ABG Hemoglobin ABG Carboxyhemoglobin POC ABG HHb (Measured) ABG Methemoglobin Jose Test A-a O2 Difference Respiratory Index Hgb O2 Saturation Vent Mode FiO2 Inspiratory BiPAP Expiratory BiPAP Sodium 139 Potassium 4.7 Chloride 103 Carbon Dioxide 16 L Anion Gap 25 H BUN 53 H Creatinine 1.9 H Est GFR ( Amer) 42 Est GFR (Non-Af Amer) 35 POC Glucose (mg/dL) Random Glucose 244 H Calcium 8.5 L Phosphorus 5.9 H Magnesium 2.1 Total Bilirubin 0.7 AST 137 H D ALT 120 H D Alkaline Phosphatase 132 H D Total Creatine Kinase 209 H CK-MB (Mass) 17.6 H Troponin I Troponin I, Quant 39.3000 H* Total Protein 6.7 Albumin 3.1 L Globulin 3.6 Albumin/Globulin Ratio 0.9 L 12/02/16 12/02/16 12/02/16 06:07 07:29 08:28 WBC RBC Hgb Hct MCV MCH MCHC RDW Plt Count MPV Neut % (Auto) Lymph % (Auto) [place] % (Auto) Eos % (Auto) Baso % (Auto) Neut # Lymph # [place] # Eos # Baso # APTT 42 H D Puncture Site Rba pCO2 23 L pO2 183 H HCO3 18.0 L ABG pH 7.41 ABG Total CO2 15.3 L ABG O2 Saturation 99.6 H ABG Base Excess -8.9 L ABG Hemoglobin 8.1 L ABG Carboxyhemoglobin 1.6 H POC ABG HHb (Measured) 0.4 ABG Methemoglobin 0.9 Jose Test Na A-a O2 Difference 216.0 Respiratory Index 1.2 Hgb O2 Saturation 97.1 Vent Mode Bipap FiO2 60.0 Inspiratory BiPAP 14 Expiratory BiPAP 7 Sodium Potassium Chloride Carbon Dioxide Anion Gap BUN Creatinine Est GFR ( Amer) Est GFR (Non-Af Amer) POC Glucose (mg/dL) 323 H Random Glucose Calcium Phosphorus Magnesium Total Bilirubin AST ALT Alkaline Phosphatase Total Creatine Kinase CK-MB (Mass) Troponin I Troponin I, Quant Total Protein Albumin Globulin Albumin/Globulin Ratio 12/02/16 12/02/16 12/02/16 11:15 15:59 16:35 WBC RBC Hgb Hct MCV MCH MCHC RDW Plt Count MPV Neut % (Auto) Lymph % (Auto) [place] % (Auto) Eos % (Auto) Baso % (Auto) Neut # Lymph # [place] # Eos # Baso # APTT 44 H Puncture Site pCO2 pO2 HCO3 ABG pH ABG Total CO2 ABG O2 Saturation ABG Base Excess ABG Hemoglobin ABG Carboxyhemoglobin POC ABG HHb (Measured) ABG Methemoglobin Jose Test A-a O2 Difference Respiratory Index Hgb O2 Saturation Vent Mode FiO2 Inspiratory BiPAP Expiratory BiPAP Sodium Potassium Chloride Carbon Dioxide Anion Gap BUN Creatinine Est GFR ( Amer) Est GFR (Non-Af Amer) POC Glucose (mg/dL) 270 H 330 H Random Glucose Calcium Phosphorus Magnesium Total Bilirubin AST ALT Alkaline Phosphatase Total Creatine Kinase CK-MB (Mass) Troponin I Troponin I, Quant Total Protein Albumin Globulin Albumin/Globulin Ratio
[2016-12-03] MEDS: Albuterol-Ipratrop 3 mg / 0.5 (3 ml) UD INH SCH ×4 (01:15→19:50)
[2016-12-03] MEDS: cefTRIAXone IV 1 gm in Dextros 50 ML IVPB SCH (02:46)
[2016-12-03 05:03] LABS: BASO % 0.3 % (0.0-2.0); EOS % 0.1 % (0.0-4.0); HEMATOCRIT 26.6 % (35.0-51.0); LYMPH # 0.3 K/uL (1.0-4.3); LYMPH % 14.5 % (20.0-40.0); MEAN CELL VOLUME 81.1 fL (80.0-94.0); MEAN CORPUSCULAR HEMOGLOBIN 26.4 pg (27.0-31.0); MEAN CORPUSCULAR HGB CONC 32.6 g/dL (33.0-37.0); MEAN PLATELET VOLUME 10.2 fL (7.2-11.7); MONO # 0.2 K/uL (0.0-0.8); NRBC % 1.5 % (0.0-2.0); RED CELL DISTRIBUTION WIDTH 25.2 % (11.5-14.5)
[2016-12-03 05:20] LABS: POTASSIUM 4.8 mmol/L (3.6-5.2)
[2016-12-03 05:22] LABS: ALB/GLOB RATIO 0.9 (1.0-2.1); BILIRUBIN,TOTAL 0.7 mg/dL (0.2-1.3); TOTAL PROTEIN 6.8 g/dL (6.3-8.3)
[2016-12-03 05:23] LABS: CALCIUM 8.6 mg/dl (8.6-10.4); MAGNESIUM 2.2 mg/dL (1.6-2.3); PHOSPHOROUS 6.2 mg/dL (2.5-4.5)
[2016-12-03] MEDS: Metoprolol 1 mg/ml Inj IVP SCH ×3 (06:09→22:28)
[2016-12-03] MEDS: Nitroglycerin 2% Ointment Foilpak UD TOP SCH ×4 (06:10→23:15)
[2016-12-03 08:05] LABS: ABG MECHANICAL RATE 18; DRAW SITE L/F
[2016-12-03] MEDS: (Novolin R) Insulin Human Regular 100 units/ml vial SC SCH ×4 (08:15→22:10)
--- NOTE | 2016-12-03 09:05 | RAD ---
HISTORY: CHF COMPARISON: 12/01/2016 FINDINGS: The right PICC line terminates at the cavoatrial junction. LUNGS: There is persistent pulmonary venous congestion and interstitial pulmonary edema. . PLEURA: There are layering pleural effusions, no pneumothorax apparent. CARDIOVASCULAR: Normal. OSSEOUS STRUCTURES: No significant abnormalities. VISUALIZED UPPER ABDOMEN: Normal. OTHER FINDINGS: None. IMPRESSION: Worsening congestive heart failure with worsening layering pleural effusions.
--- NOTE | 2016-12-03 09:47 | CP.CCUPN ---
CCU Subjective - Physician Review Subjective (Free Text): 12/03/16 09:45 Patient was seen and examined at bedside this AM. Patient is alert but not responsive. Patient does not respond to commands. Per nurse the patient stated he smokes a pack and a half a day at home but the patient quickly gets short of breath after speaking. CCU Objective - Vital Signs / Intake & Output Vital Signs (Last 4 hours): Vital Signs Temp Pulse Resp BP Pulse Ox 12/03/16 09:00 111 H 36 H 138/75 100 12/03/16 08:00 97.5 F L 108 H 22 130/73 100 12/03/16 07:44 108 H 12/03/16 07:00 107 H 22 125/79 100 12/03/16 06:00 117 H 35 H 136/79 100 Intake and Output (Last 8hrs): Intake & Output 12/02/16 12/03/16 12/03/16 22:59 06:59 14:59 Intake Total 353.0 105.6 39.6 Output Total 265 195 120 Balance 88.0 -89.4 -80.4 Weight 148 lb 8 oz Intake: IV 50 Intake, IV Amount 103.0 105.6 39.6 Right 103.0 105.6 39.6 Oral 200 Output: Urine 265 195 120 Urethral (Powell) 265 195 120 Emesis 0 Other: # Bowel Movements 0 - Physical Exam Physical Exam Limitations: Positive for: Clinical Condition (Patient is unresponsive because per nurse he gets extremely short of breath with speaking) Head: Positive for: Atraumatic, Normocephalic Pupils: Positive for: PERRL Extroacular Muscles: Positive for: EOMI Conjunctiva: Positive for: Normal Mouth: Positive for: Moist Mucous Membranes Respiratory/Chest: Positive for: Decreased Breath Sounds, Tachypneic. Negative for: Rales Cardiovascular: Positive for: Regular Rate and Rhythm, Normal S1, S2, Tachycardic Abdomen: Positive for: Normal Bowel Sounds. Negative for: Tenderness, Distention Upper Extremity: Positive for: Normal Inspection Lower Extremity: Positive for: Normal Inspection, Edema. Negative for: CALF TENDERNESS, Tenderness, Swelling Neurological: Negative for: GCS=15 Skin: Positive for: Warm, Dry Psychiatric: Positive for: Alert. Negative for: Oriented x 3, Normal Insight, Normal Concentration - Medications Active Medications: Active Medications Generic Name Dose Route Start Last Admin Trade Name Freq PRN Reason Stop Dose Admin Albuterol/Ipratropium 3 ml 12/01/16 08:00 12/03/16 07:43 Duoneb 3 Mg/0.5 Mg (3 Ml) Ud INH 3 ml RQ6 [facility] Administration Aspirin 300 mg 12/02/16 10:00 12/02/16 09:21 Aspirin Supp GA 300 mg DAILY L[facility]ANN Administration Famotidine 20 mg 12/01/16 10:00 12/02/16 09:19 Pepcid IVP 20 mg DAILY [facility] Administration Furosemide 40 mg 12/02/16 10:00 12/02/16 09:19 Lasix IVP 40 mg DAILY [facility] Administration Ceftriaxone Sodium 50 mls @ 100 mls/hr 12/02/16 03:00 12/03/16 02:46 Rocephin Iv 1 Gm Duplex IVPB 100 mls/hr Q24H [facility] Administration Heparin Sodium/Sodium Chloride 25,000 units in 250 mls @ 7.947 mls/hr 10:04 12/02/16 16:00 Heparin 16982 Units/250ml 1/2 Normal Saline IV 20 units/kg/hr .Q24H PRN 13.245 mls/hr PROTOCOL Titration Protocol 12 UNITS/KG/HR Insulin Human Regular 0 unit 12/02/16 07:30 12/03/16 08:15 Novolin R SC 3 unit ACHS [facility] Administration Protocol Methylprednisolone 20 mg 12/02/16 10:00 12/02/16 21:43 Solu-Medrol IVP 20 mg Q12 [facility]ANN Administration Metoprolol Tartrate 2.5 mg 12/01/16 22:00 12/03/16 06:09 Lopressor IVP 2.5 mg Q8 [facility] Administration Nicotine 1 patch 12/03/16 10:00 Nicoderm Cq TD DAILY [facility] Nitroglycerin 1 ea 12/01/16 12:00 12/03/16 06:10 Nitro-Bid 2% Oint TOP 1 ea Q6 [facility]ANN Administration - Patient Studies Lab Studies: Microbiology Studies 12/01/16 16:00 S.aureus & Coag-Neg Staph PNA FISH - Final Blood Blood Culture - Preliminary Staphylococcus Aureus Gram Stain - Final 12/01/16 16:00 Blood Culture - Preliminary Blood NO GROWTH AFTER 24 HOURS 12/01/16 10:00 Urine Culture - Final Urine No Growth (<1,000 CFU/ML) 12/01/16 10:00 MRSA Culture (Admit) - Final Nose MRSA NOT DETECTED Lab Studies 12/03/16 12/03/16 12/03/16 Range/Units 07:59 07:34 04:56 WBC (4.8-10.8) K/uL RBC (4.40-5.90) Mil/uL Hgb (12.0-18.0) g/dL Hct (35.0-51.0) % MCV (80.0-94.0) fL MCH (27.0-31.0) pg MCHC (33.0-37.0) g/dL RDW (11.5-14.5) % Plt Count (130-400) K/uL MPV (7.2-11.7) fL Neut % (Auto) (50.0-75.0) % Lymph % (Auto) (20.0-40.0) % Laurens % (Auto) (0.0-10.0) % Eos % (Auto) (0.0-4.0) % Baso % (Auto) (0.0-2.0) % Neut # (1.8-7.0) K/uL Lymph # (1.0-4.3) K/uL Laurens # (0.0-0.8) K/uL Eos # (0.0-0.7) K/uL Baso # (0.0-0.2) K/uL APTT (21-34) SECONDS Puncture Site L/f pCO2 21 L (35-45) mm/Hg pO2 158 H (80-100) mm/Hg HCO3 17.9 L (21-28) mmol/L ABG pH 7.41 (7.35-7.45) ABG Total CO2 13.9 L (22-28) mmol/L ABG O2 Saturation 99.6 H (95-98) % ABG Base Excess -9.1 L (-2.0-3.0) mmol/L Jose Test Na ABG Potassium 4.5 (3.6-5.2) mmol/L A-a O2 Difference 172.0 mm/Hg Respiratory Index 1.1 Glucose 311 H (75-110) mg/dl Lactate 1.9 (0.7-2.1) mmol/L Mechanical Rate 18 FiO2 50.0 % Inspiratory BiPAP 16 Expiratory BiPAP 8 Crit Value Called To Dr combs Crit Value Called By Ori arevalo crt Crit Value Read Back Y Blood Gas Notified Time 800 Sodium 138.0 139 (132-148) mmol/L Potassium 4.8 (3.6-5.2) mmol/L Chloride 110.0 H 103 (98-107) mmol/L Carbon Dioxide 15 L (22-30) mmol/L Anion Gap 26 H (10-20) BUN 69 H (9-20) mg/dL Creatinine 2.5 H (0.8-1.5) MG/DL Est GFR ( Amer) 31 Est GFR (Non-Af Amer) 26 POC Glucose (mg/dL) 285 H (65-110) mg/dL Random Glucose 306 H (75-110) mg/dL Calcium 8.6 (8.6-10.4) mg/dl Phosphorus 6.2 H (2.5-4.5) mg/dL Magnesium 2.2 (1.6-2.3) mg/dL Total Bilirubin 0.7 (0.2-1.3) mg/dL AST 140 H (17-59) U/L ALT 193 H D (21-72) U/L Alkaline Phosphatase 156 H (38-126) U/L Total Creatine Kinase 93 (55-170) U/L CK-MB (Mass) 5.81 H (0.0-3.38) ng/mL Troponin I, Quant 13.5000 H* (0.00-0.120) ng/mL Total Protein 6.8 (6.3-8.3) g/dL Albumin 3.2 L (3.5-5.0) g/dL Globulin 3.7 (2.2-3.9) gm/dL Albumin/Globulin Ratio 0.9 L (1.0-2.1) Arterial Blood Potassium 4.5 (3.6-5.2) mmol/L 12/03/16 12/03/16 12/02/16 Range/Units 04:56 04:56 22:13 WBC 2.0 L* D (4.8-10.8) K/uL RBC 3.28 L (4.40-5.90) Mil/uL Hgb 8.7 L (12.0-18.0) g/dL Hct 26.6 L (35.0-51.0) % MCV 81.1 (80.0-94.0) fL MCH 26.4 L (27.0-31.0) pg MCHC 32.6 L (33.0-37.0) g/dL RDW 25.2 H (11.5-14.5) % Plt Count 352 (130-400) K/uL MPV 10.2 (7.2-11.7) fL Neut % (Auto) 74.1 (50.0-75.0) % Lymph % (Auto) 14.5 L (20.0-40.0) % Laurens % (Auto) 11.0 H (0.0-10.0) % Eos % (Auto) 0.1 (0.0-4.0) % Baso % (Auto) 0.3 (0.0-2.0) % Neut # 1.5 L (1.8-7.0) K/uL Lymph # 0.3 L (1.0-4.3) K/uL Laurens # 0.2 (0.0-0.8) K/uL Eos # 0.0 (0.0-0.7) K/uL Baso # 0.0 (0.0-0.2) K/uL APTT 50 H D (21-34) SECONDS Puncture Site pCO2 (35-45) mm/Hg pO2 (80-100) mm/Hg HCO3 (21-28) mmol/L ABG pH (7.35-7.45) ABG Total CO2 (22-28) mmol/L ABG O2 Saturation (95-98) % ABG Base Excess (-2.0-3.0) mmol/L Jose Test ABG Potassium (3.6-5.2) mmol/L A-a O2 Difference mm/Hg Respiratory Index Glucose (75-110) mg/dl Lactate (0.7-2.1) mmol/L Mechanical Rate FiO2 % Inspiratory BiPAP Expiratory BiPAP Crit Value Called To Crit Value Called By Crit Value Read Back Blood Gas Notified Time Sodium (132-148) mmol/L Potassium (3.6-5.2) mmol/L Chloride (98-107) mmol/L Carbon Dioxide (22-30) mmol/L Anion Gap (10-20) BUN (9-20) mg/dL Creatinine (0.8-1.5) MG/DL Est GFR ( Amer) Est GFR (Non-Af Amer) POC Glucose (mg/dL) 262 H (65-110) mg/dL Random Glucose (75-110) mg/dL Calcium (8.6-10.4) mg/dl Phosphorus (2.5-4.5) mg/dL Magnesium (1.6-2.3) mg/dL Total Bilirubin (0.2-1.3) mg/dL AST (17-59) U/L ALT (21-72) U/L Alkaline Phosphatase (38-126) U/L Total Creatine Kinase (55-170) U/L CK-MB (Mass) (0.0-3.38) ng/mL Troponin I, Quant (0.00-0.120) ng/mL Total Protein (6.3-8.3) g/dL Albumin (3.5-5.0) g/dL Globulin (2.2-3.9) gm/dL Albumin/Globulin Ratio (1.0-2.1) Arterial Blood Potassium (3.6-5.2) mmol/L 12/02/16 12/02/16 12/02/16 Range/Units 22:01 16:35 15:59 WBC (4.8-10.8) K/uL RBC (4.40-5.90) Mil/uL Hgb (12.0-18.0) g/dL Hct (35.0-51.0) % MCV (80.0-94.0) fL MCH (27.0-31.0) pg MCHC (33.0-37.0) g/dL RDW (11.5-14.5) % Plt Count (130-400) K/uL MPV (7.2-11.7) fL Neut % (Auto) (50.0-75.0) % Lymph % (Auto) (20.0-40.0) % Laurens % (Auto) (0.0-10.0) % Eos % (Auto) (0.0-4.0) % Baso % (Auto) (0.0-2.0) % Neut # (1.8-7.0) K/uL Lymph # (1.0-4.3) K/uL Laurens # (0.0-0.8) K/uL Eos # (0.0-0.7) K/uL Baso # (0.0-0.2) K/uL APTT 93 H D 44 H (21-34) SECONDS Puncture Site pCO2 (35-45) mm/Hg pO2 (80-100) mm/Hg HCO3 (21-28) mmol/L ABG pH (7.35-7.45) ABG Total CO2 (22-28) mmol/L ABG O2 Saturation (95-98) % ABG Base Excess (-2.0-3.0) mmol/L Jose Test ABG Potassium (3.6-5.2) mmol/L A-a O2 Difference mm/Hg Respiratory Index Glucose (75-110) mg/dl Lactate (0.7-2.1) mmol/L Mechanical Rate FiO2 % Inspiratory BiPAP Expiratory BiPAP Crit Value Called To Crit Value Called By Crit Value Read Back Blood Gas Notified Time Sodium (132-148) mmol/L Potassium (3.6-5.2) mmol/L Chloride (98-107) mmol/L Carbon Dioxide (22-30) mmol/L Anion Gap (10-20) BUN (9-20) mg/dL Creatinine (0.8-1.5) MG/DL Est GFR ( Amer) Est GFR (Non-Af Amer) POC Glucose (mg/dL) 330 H (65-110) mg/dL Random Glucose (75-110) mg/dL Calcium (8.6-10.4) mg/dl Phosphorus (2.5-4.5) mg/dL Magnesium (1.6-2.3) mg/dL Total Bilirubin (0.2-1.3) mg/dL AST (17-59) U/L ALT (21-72) U/L Alkaline Phosphatase (38-126) U/L Total Creatine Kinase (55-170) U/L CK-MB (Mass) (0.0-3.38) ng/mL Troponin I, Quant (0.00-0.120) ng/mL Total Protein (6.3-8.3) g/dL Albumin (3.5-5.0) g/dL Globulin (2.2-3.9) gm/dL Albumin/Globulin Ratio (1.0-2.1) Arterial Blood Potassium (3.6-5.2) mmol/L 12/02/16 12/02/16 Range/Units 11:15 06:06 WBC (4.8-10.8) K/uL RBC (4.40-5.90) Mil/uL Hgb (12.0-18.0) g/dL Hct (35.0-51.0) % MCV (80.0-94.0) fL MCH (27.0-31.0) pg MCHC (33.0-37.0) g/dL RDW (11.5-14.5) % Plt Count (130-400) K/uL MPV (7.2-11.7) fL Neut % (Auto) (50.0-75.0) % Lymph % (Auto) (20.0-40.0) % Laurens % (Auto) (0.0-10.0) % Eos % (Auto) (0.0-4.0) % Baso % (Auto) (0.0-2.0) % Neut # (1.8-7.0) K/uL Lymph # (1.0-4.3) K/uL Laurens # (0.0-0.8) K/uL Eos # (0.0-0.7) K/uL Baso # (0.0-0.2) K/uL APTT (21-34) SECONDS Puncture Site pCO2 (35-45) mm/Hg pO2 (80-100) mm/Hg HCO3 (21-28) mmol/L ABG pH (7.35-7.45) ABG Total CO2 (22-28) mmol/L ABG O2 Saturation (95-98) % ABG Base Excess (-2.0-3.0) mmol/L Jose Test ABG Potassium (3.6-5.2) mmol/L A-a O2 Difference mm/Hg Respiratory Index Glucose (75-110) mg/dl Lactate (0.7-2.1) mmol/L Mechanical Rate FiO2 % Inspiratory BiPAP Expiratory BiPAP Crit Value Called To Crit Value Called By Crit Value Read Back Blood Gas Notified Time Sodium (132-148) mmol/L Potassium (3.6-5.2) mmol/L Chloride (98-107) mmol/L Carbon Dioxide (22-30) mmol/L Anion Gap (10-20) BUN (9-20) mg/dL Creatinine (0.8-1.5) MG/DL Est GFR ( Amer) Est GFR (Non-Af Amer) POC Glucose (mg/dL) 270 H (65-110) mg/dL Random Glucose (75-110) mg/dL Calcium (8.6-10.4) mg/dl Phosphorus (2.5-4.5) mg/dL Magnesium (1.6-2.3) mg/dL Total Bilirubin (0.2-1.3) mg/dL AST (17-59) U/L ALT (21-72) U/L Alkaline Phosphatase (38-126) U/L Total Creatine Kinase 209 H (55-170) U/L CK-MB (Mass) 17.6 H (0.0-3.38) ng/mL Troponin I, Quant 39.3000 H* (0.00-0.120) ng/mL Total Protein (6.3-8.3) g/dL Albumin (3.5-5.0) g/dL Globulin (2.2-3.9) gm/dL Albumin/Globulin Ratio (1.0-2.1) Arterial Blood Potassium (3.6-5.2) mmol/L Laboratory Results - last 24 hr 12/02/16 12/02/16 12/02/16 06:06 11:15 15:59 WBC RBC Hgb Hct MCV MCH MCHC RDW Plt Count MPV Neut % (Auto) Lymph % (Auto) Laurens % (Auto) Eos % (Auto) Baso % (Auto) Neut # Lymph # Laurens # Eos # Baso # APTT 44 H Puncture Site pCO2 pO2 HCO3 ABG pH ABG Total CO2 ABG O2 Saturation ABG Base Excess Jose Test ABG Potassium A-a O2 Difference Respiratory Index Glucose Lactate Mechanical Rate FiO2 Inspiratory BiPAP Expiratory BiPAP Crit Value Called To Crit Value Called By Crit Value Read Back Blood Gas Notified Time Sodium Potassium Chloride Carbon Dioxide Anion Gap BUN Creatinine Est GFR ( Amer) Est GFR (Non-Af Amer) POC Glucose (mg/dL) 270 H Random Glucose Calcium Phosphorus Magnesium Total Bilirubin AST ALT Alkaline Phosphatase Total Creatine Kinase 209 H CK-MB (Mass) 17.6 H Troponin I, Quant 39.3000 H* Total Protein Albumin Globulin Albumin/Globulin Ratio Arterial Blood Potassium 12/02/16 12/02/16 12/02/16 16:35 22:01 22:13 WBC RBC Hgb Hct MCV MCH MCHC RDW Plt Count MPV Neut % (Auto) Lymph % (Auto) Laurens % (Auto) Eos % (Auto) Baso % (Auto) Neut # Lymph # Laurens # Eos # Baso # APTT 93 H D Puncture Site pCO2 pO2 HCO3 ABG pH ABG Total CO2 ABG O2 Saturation ABG Base Excess Jose Test ABG Potassium A-a O2 Difference Respiratory Index Glucose Lactate Mechanical Rate FiO2 Inspiratory BiPAP Expiratory BiPAP Crit Value Called To Crit Value Called By Crit Value Read Back Blood Gas Notified Time Sodium Potassium Chloride Carbon Dioxide Anion Gap BUN Creatinine Est GFR ( Amer) Est GFR (Non-Af Amer) POC Glucose (mg/dL) 330 H 262 H Random Glucose Calcium Phosphorus Magnesium Total Bilirubin AST ALT Alkaline Phosphatase Total Creatine Kinase CK-MB (Mass) Troponin I, Quant Total Protein Albumin Globulin Albumin/Globulin Ratio Arterial Blood Potassium 12/03/16 12/03/16 12/03/16 04:56 04:56 04:56 WBC 2.0 L* D RBC 3.28 L Hgb 8.7 L Hct 26.6 L MCV 81.1 MCH 26.4 L MCHC 32.6 L RDW 25.2 H Plt Count 352 MPV 10.2 Neut % (Auto) 74.1 Lymph % (Auto) 14.5 L Laurens % (Auto) 11.0 H Eos % (Auto) 0.1 Baso % (Auto) 0.3 Neut # 1.5 L Lymph # 0.3 L Laurens # 0.2 Eos # 0.0 Baso # 0.0 APTT 50 H D Puncture Site pCO2 pO2 HCO3 ABG pH ABG Total CO2 ABG O2 Saturation ABG Base Excess Jose Test ABG Potassium A-a O2 Difference Respiratory Index Glucose Lactate Mechanical Rate FiO2 Inspiratory BiPAP Expiratory BiPAP Crit Value Called To Crit Value Called By Crit Value Read Back Blood Gas Notified Time Sodium 139 Potassium 4.8 Chloride 103 Carbon Dioxide 15 L Anion Gap 26 H BUN 69 H Creatinine 2.5 H Est GFR ( Amer) 31 Est GFR (Non-Af Amer) 26 POC Glucose (mg/dL) Random Glucose 306 H Calcium 8.6 Phosphorus 6.2 H Magnesium 2.2 Total Bilirubin 0.7 AST 140 H ALT 193 H D Alkaline Phosphatase 156 H Total Creatine Kinase 93 CK-MB (Mass) 5.81 H Troponin I, Quant 13.5000 H* Total Protein 6.8 Albumin 3.2 L Globulin 3.7 Albumin/Globulin Ratio 0.9 L Arterial Blood Potassium 12/03/16 12/03/16 07:34 07:59 WBC RBC Hgb Hct MCV MCH MCHC RDW Plt Count MPV Neut % (Auto) Lymph % (Auto) Laurens % (Auto) Eos % (Auto) Baso % (Auto) Neut # Lymph # Laurens # Eos # Baso # APTT Puncture Site L/f pCO2 21 L pO2 158 H HCO3 17.9 L ABG pH 7.41 ABG Total CO2 13.9 L ABG O2 Saturation 99.6 H ABG Base Excess -9.1 L Jose Test Na ABG Potassium 4.5 A-a O2 Difference 172.0 Respiratory Index 1.1 Glucose 311 H Lactate 1.9 Mechanical Rate 18 FiO2 50.0 Inspiratory BiPAP 16 Expiratory BiPAP 8 Crit Value Called To Dr combs Crit Value Called By Ori arevalo pipe stem sawyer Crit Value Read Back Y Blood Gas Notified Time 800 Sodium 138.0 Potassium Chloride 110.0 H Carbon Dioxide Anion Gap BUN Creatinine Est GFR ( Amer) Est GFR (Non-Af Amer) POC Glucose (mg/dL) 285 H Random Glucose Calcium Phosphorus Magnesium Total Bilirubin AST ALT Alkaline Phosphatase Total Creatine Kinase CK-MB (Mass) Troponin I, Quant Total Protein Albumin Globulin Albumin/Globulin Ratio Arterial Blood Potassium 4.5 Fingerstick Blood Sugar Results: 285 Review of Systems - Review of Systems Systems not reviewed;Unavailable: Respiratory Distress Critical Care Progress Note - Nutrition Nutrition: Nutrition Category Date Time Status Liquid Diet [DIET] Diets 12/02/16 Lunch Active Assessment/Plan (1) CHF (congestive heart failure) Assessment and plan: 71-year-old male with history of COPD hypertension, CAD, heart failure, acute non-ST elevation GA complicated with the cardiac shock now. Neuro: Alert Not Oriented/Not verbal Pulm: Patient started on Cpap 12/03 Started on Nicotine patch 12/03 Chest X-ray 12/03: Worsening CHF with worsening layering pleural effusions Monitor CV: Patient is in cardiac shock - per Dr. Snyder pt is not stable for cardiac cath Admitted with NSTEMI Cardio Consult: Dr. Snyder and Dr. Apple --> help appreciated Repeat ECHO Heme Neutropenia secondary to Myelodysplastic Syndrome Heme/Onc Consult: Dr. Knutson --> help appreciated GI: No acute issues Renal: CKD Endo: Diabetes Accuchecks/Insulin Sliding Scale ID: Staph Aureus - Blood Culture Ceftriaxone started on 12/02 DVT proph: SCDs, heparin subcutaneous GI Proph: Pepcid 20mg IVP Daily Code Status: full code Case discussed with Dr. Jamel Johnson PGY-1 Current Visit: Yes Status: Chronic
--- NOTE | 2016-12-03 10:29 | CP.PCM.PN ---
<Cas Carrion S - Last Filed: 12/03/16 15:00> Subjective - Date & Time of Evaluation Date of Evaluation: 12/03/16 Time of Evaluation: 10:26 - Subjective Subjective: PGY2 Progress Note- Cardiology- Dr. Apple Patient seen and examined at bedside morning. He is currently on BIPAP and as per nursing staff he has been on BIPAP overnight. Additionally, nursing reports that he was agitated over night and received Ativan. He is alert but not responsive; does not follow commands. Objective - Vital Signs/Intake and Output Vital Signs (last 24 hours): Temp Pulse Resp BP Pulse Ox 97.5 F L 111 H 36 H 138/75 100 12/03/16 08:00 12/03/16 09:00 12/03/16 09:00 12/03/16 09:00 12/03/16 09:00 Intake and Output: 12/03/16 12/03/16 06:59 18:59 Intake Total 158.4 39.6 Output Total 310 120 Balance -151.6 -80.4 - Medications Medications: Current Medications Albuterol/Ipratropium (Duoneb 3 Mg/0.5 Mg (3 Ml) Ud) 3 ml INH RQ6 [facility] Last Admin: 12/03/16 07:43 Dose: 3 ml Aspirin (Aspirin Supp) 300 mg [place] DAILY [facility] Last Admin: 12/02/16 09:21 Dose: 300 mg Famotidine (Pepcid) 20 mg IVP DAILY [facility] Last Admin: 12/02/16 09:19 Dose: 20 mg Furosemide (Lasix) 40 mg IVP DAILY [facility] Last Admin: 12/02/16 09:19 Dose: 40 mg Ceftriaxone Sodium (Rocephin Iv 1 Gm Duplex) 50 mls @ 100 mls/hr IVPB Q24H [facility] Last Admin: 12/03/16 02:46 Dose: 100 mls/hr Heparin Sodium/Sodium Chloride (Heparin 45012 Units/250ml 1/2 Normal Saline) 25 ,000 units in 250 mls @ 7.947 mls/hr IV .Q24H PRN; Protocol; 12 UNITS/KG/HR PRN Reason: PROTOCOL Last Titration: 12/02/16 16:00 Dose: 20 units/kg/hr, 13.245 mls/hr Insulin Human Regular (Novolin R) 0 unit SC ACHS [facility] PRN Reason: Protocol Last Admin: 12/03/16 08:15 Dose: 3 unit Methylprednisolone (Solu-Medrol) 20 mg IVP Q12 [facility] Last Admin: 12/02/16 21:43 Dose: 20 mg Metoprolol Tartrate (Lopressor) 2.5 mg IVP Q8 [facility] Last Admin: 12/03/16 06:09 Dose: 2.5 mg Nicotine (Nicoderm Cq) 1 patch TD DAILY [facility] Nitroglycerin (Nitro-Bid 2% Oint) 1 ea TOP Q6 [facility] Last Admin: 12/03/16 06:10 Dose: 1 ea - Labs Labs: 12/03/16 04:56 12/03/16 04:56 PT 13.7 SECONDS (9.7-12.2) H 12/01/16 02:35 INR 1.2 12/01/16 02:35 APTT 50 SECONDS (21-34) H D 12/03/16 04:56 - Constitutional Appears: Confused (Pt is not appropriately responsive; He has mild respiratory distress and is on BIPAP) - Eye Exam Eye Exam: EOMI, Normal appearance - ENT Exam ENT Exam: Mucous Membranes Dry - Neck Exam Additional comments: negative for JVD - Respiratory Exam Respiratory Exam: Respiratory Distress Additional comments: mild respiratory distress on BIPAP Coarse breath sounds bilaterally - Cardiovascular Exam Cardiovascular Exam: Tachycardia, REGULAR RHYTHM - GI/Abdominal Exam GI & Abdominal Exam: Soft. absent: Distended, Tenderness - Neurological Exam Neurological Exam: Altered Additional comments: can be aroused but confused Assessment and Plan - Assessment and Plan (Free Text) Assessment: 71 y/o male w/ hx of myelodysplastic syndrome, COPD, HTN, CAD, and CHF presenting with NSTEMI Plan: NSTEMI This patient has been seen and evaluated by Dr. Snyder for Cath. Pt is not a candidate for Cath; poor prognosis. Continue IV Heparin drip ASA 300mg daily Lasix 40mg IV daily Metoprolol 2.5mg IV q8hrs We will continue to follow. No intervention at this time given patient's clinical status. Case discussed with Dr. Apple <Santy Apple - Last Filed: 01/06/17 17:43> Objective - Vital Signs/Intake and Output Vital Signs (last 24 hours): Temp Pulse Resp BP Pulse Ox 98 F 58 L 26 H 62/29 L 68 L 12/07/16 08:00 12/08/16 11:37 12/08/16 11:37 12/08/16 11:37 12/07/16 10:03 - Labs Labs: 12/07/16 05:59 12/07/16 05:59 PT 13.7 SECONDS (9.7-12.2) H 12/01/16 02:35 INR 1.2 12/01/16 02:35 APTT 55 SECONDS (21-34) H 12/07/16 05:59 Attending/Attestation - Attestation I have personally seen and examined this patient.: Yes I have fully participated in the care of the patient.: Yes I have reviewed all pertinent clinical information, including history, physical exam and plan: Yes Notes (Text): 01/06/17 17:43 pt on bi pap continue rate control pt no responses
[2016-12-03] MEDS: MethylPREDNISolone 40 mg Vial IVP SCH ×2 (11:08→22:28)
[2016-12-03] MEDS: Heparin25000 units/250ml 1/2NS 25,000 UNITS/250 ML BAG IV PRN (11:59)
--- NOTE | 2016-12-03 16:45 | CP.PCM.PN ---
Subjective - Date & Time of Evaluation Date of Evaluation: 12/03/16 Time of Evaluation: 12:20 - Subjective Subjective: Patient seen and evaluated. On BiPAP and totally confused. Offers no symptoms Objective - Vital Signs/Intake and Output Vital Signs (last 24 hours): Temp Pulse Resp BP Pulse Ox 97.8 F 116 H 14 124/54 L 100 12/03/16 12:00 12/03/16 16:00 12/03/16 14:00 12/03/16 14:00 12/03/16 14:00 Intake and Output: 12/03/16 12/03/16 06:59 18:59 Intake Total 158.4 305.6 Output Total 310 820 Balance -151.6 -514.4 - Medications Medications: Current Medications Albuterol/Ipratropium (Duoneb 3 Mg/0.5 Mg (3 Ml) Ud) 3 ml INH RQ6 [facility] Last Admin: 12/03/16 14:10 Dose: 3 ml Aspirin (Aspirin Supp) 300 mg SC DAILY [facility] Last Admin: 12/03/16 11:53 Dose: 300 mg Famotidine (Pepcid) 20 mg IVP DAILY [facility] Last Admin: 12/03/16 11:08 Dose: 20 mg Furosemide (Lasix) 40 mg IVP DAILY [facility] Last Admin: 12/03/16 11:10 Dose: 40 mg Ceftriaxone Sodium (Rocephin Iv 1 Gm Duplex) 50 mls @ 100 mls/hr IVPB Q24H [facility] Last Admin: 12/03/16 02:46 Dose: 100 mls/hr Heparin Sodium/Sodium Chloride (Heparin 92882 Units/250ml 1/2 Normal Saline) 25 ,000 units in 250 mls @ 7.947 mls/hr IV .Q24H PRN; Protocol; 12 UNITS/KG/HR PRN Reason: PROTOCOL Last Admin: 12/03/16 11:59 Dose: 20 units/kg/hr, 13.245 mls/hr Insulin Human Regular (Novolin R) 0 unit SC ACHS [facility] PRN Reason: Protocol Last Admin: 12/03/16 11:13 Dose: 3 unit Methylprednisolone (Solu-Medrol) 20 mg IVP Q12 [facility] Last Admin: 12/03/16 11:08 Dose: 20 mg Metoprolol Tartrate (Lopressor) 2.5 mg IVP Q8 [facility] Last Admin: 12/03/16 06:09 Dose: 2.5 mg Nicotine (Nicoderm Cq) 1 patch TD DAILY [facility] Last Admin: 12/03/16 11:53 Dose: 1 patch Nitroglycerin (Nitro-Bid 2% Oint) 1 ea TOP Q6 [facility] Last Admin: 12/03/16 11:10 Dose: 1 ea - Labs Labs: 12/03/16 04:56 12/03/16 04:56 PT 13.7 SECONDS (9.7-12.2) H 12/01/16 02:35 INR 1.2 12/01/16 02:35 APTT 50 SECONDS (21-34) H D 12/03/16 04:56 - Constitutional Appears: Confused - Head Exam Head Exam: ATRAUMATIC - Eye Exam Eye Exam: EOMI, Normal appearance - ENT Exam ENT Exam: Mucous Membranes Moist - Neck Exam Neck Exam: Full ROM - Respiratory Exam Respiratory Exam: Accessory Muscle Use, Decreased Breath Sounds - Cardiovascular Exam Cardiovascular Exam: RRR, +S1, +S2. absent: Murmur - GI/Abdominal Exam GI & Abdominal Exam: Soft, Normal Bowel Sounds - Extremities Exam Extremities Exam: Full ROM - Neurological Exam Neurological Exam: Alert - Psychiatric Exam Psychiatric exam: Agitated - Skin Skin Exam: Warm Assessment and Plan - Assessment and Plan (Free Text) Assessment: 1. S/P Non ST elevation [place] Not a candidate for cath at this time Agitatede and confused Continue IV Heparin and ASA 2. Hx of PAD and stents 3. COPD will continue to monitor
--- NOTE | 2016-12-03 17:54 | CP.PCM.PN ---
Subjective - Date & Time of Evaluation Date of Evaluation: 12/03/16 Time of Evaluation: 15:20 - Subjective Subjective: clinically same on iv abx Objective - Vital Signs/Intake and Output Vital Signs (last 24 hours): Temp Pulse Resp BP Pulse Ox 98.9 F 119 H 17 140/77 100 12/03/16 16:00 12/03/16 17:00 12/03/16 17:00 12/03/16 17:00 12/03/16 17:00 Intake and Output: 12/03/16 12/03/16 06:59 18:59 Intake Total 158.4 345.2 Output Total 310 1200 Balance -151.6 -854.8 - Medications Medications: Current Medications Albuterol/Ipratropium (Duoneb 3 Mg/0.5 Mg (3 Ml) Ud) 3 ml INH RQ6 [facility] Last Admin: 12/03/16 14:10 Dose: 3 ml Aspirin (Aspirin Supp) 300 mg [place] DAILY [facility] Last Admin: 12/03/16 11:53 Dose: 300 mg Famotidine (Pepcid) 20 mg IVP DAILY [facility] Last Admin: 12/03/16 11:08 Dose: 20 mg Furosemide (Lasix) 40 mg IVP DAILY [facility] Last Admin: 12/03/16 11:10 Dose: 40 mg Ceftriaxone Sodium (Rocephin Iv 1 Gm Duplex) 50 mls @ 100 mls/hr IVPB Q24H [facility] Last Admin: 12/03/16 02:46 Dose: 100 mls/hr Heparin Sodium/Sodium Chloride (Heparin 13304 Units/250ml 1/2 Normal Saline) 25 ,000 units in 250 mls @ 7.947 mls/hr IV .Q24H PRN; Protocol; 12 UNITS/KG/HR PRN Reason: PROTOCOL Last Admin: 12/03/16 11:59 Dose: 20 units/kg/hr, 13.245 mls/hr Insulin Human Regular (Novolin R) 0 unit SC ACHS [facility] PRN Reason: Protocol Last Admin: 12/03/16 17:41 Dose: 3 unit Methylprednisolone (Solu-Medrol) 20 mg IVP Q12 [facility] Last Admin: 12/03/16 11:08 Dose: 20 mg Metoprolol Tartrate (Lopressor) 2.5 mg IVP Q8 [facility] Last Admin: 12/03/16 16:00 Dose: 2.5 mg Nicotine (Nicoderm Cq) 1 patch TD DAILY [facility] Last Admin: 12/03/16 11:53 Dose: 1 patch Nitroglycerin (Nitro-Bid 2% Oint) 1 ea TOP Q6 [facility] Last Admin: 12/03/16 17:43 Dose: 1 ea - Labs Labs: 12/03/16 04:56 12/03/16 04:56 PT 13.7 SECONDS (9.7-12.2) H 12/01/16 02:35 INR 1.2 12/01/16 02:35 APTT 50 SECONDS (21-34) H D 12/03/16 04:56 - Constitutional Appears: Well - Head Exam Head Exam: ATRAUMATIC, NORMAL INSPECTION, NORMOCEPHALIC - Eye Exam Eye Exam: EOMI, Normal appearance, PERRL Pupil Exam: NORMAL ACCOMODATION, PERRL - ENT Exam ENT Exam: Mucous Membranes Moist, Normal Exam - Neck Exam Neck Exam: Full ROM, Normal Inspection. absent: Lymphadenopathy - Respiratory Exam Respiratory Exam: Decreased Breath Sounds - Cardiovascular Exam Cardiovascular Exam: REGULAR RHYTHM, +S1, +S2 - GI/Abdominal Exam GI & Abdominal Exam: Soft, Diminished Bowel Sounds - Rectal Exam Rectal Exam: Deferred - Neurological Exam Neurological Exam: Alert, Awake Assessment and Plan (1) Acute respiratory failure Status: Acute (2) Anemia Status: Acute (3) Bacteremia due to methicillin resistant Staphylococcus aureus Status: Acute (4) Chest pain Status: Acute (5) Coagulopathy Status: Acute (6) Diabetes mellitus with ulcer of ankle Status: Acute (7) Diabetes mellitus, new onset Status: Acute (8) Dyspnea Status: Acute (9) Gastrointestinal hemorrhage Status: Acute (10) Infected ulcer of skin Status: Acute (11) MDS (myelodysplastic syndrome) Status: Acute (12) Neutropenia Status: Acute (13) Non-STEMI (non-ST elevated myocardial infarction) Status: Acute (14) Non-healing ulcer of foot Status: Acute (15) PAD (peripheral artery disease) Status: Acute (16) Pancytopenia Status: Acute (17) Pneumonia Status: Acute (18) Pneumonia Status: Acute (19) Prophylactic measure Status: Acute (20) Sepsis Status: Acute (21) CAD (coronary artery disease) Status: Chronic (22) CHF (congestive heart failure) Status: Chronic (23) Diabetes mellitus Status: Chronic - Assessment and Plan (Free Text) Plan: savana iv abx meds reviewed savana same f/u labs dr ferrara
--- NOTE | 2016-12-03 23:50 | CARD ---
APPROVED REPORT EXAM: Two-dimensional and M-mode echocardiogram with Doppler and color Doppler. Other Information Quality : GoodRhythm : INDICATION Dyspnea CAD Congestive Heart Failure Non STEMI SEPSIS; PNEUMONIA RISK FACTORS Diabetes M-Mode DIMENSIONS Left Atrium (MM)3.48 (2.5-4.0cm)IVSd0.83 (0.7-1.1cm) Aortic Root3.75 (2.2-3.7cm)LVDd6.73 (4.0-5.6cm) Aortic Cusp Exc.1.64 (1.5-2.0cm)PWd0.69 (0.7-1.1cm) FS (%) 12 %LVDs5.93 (2.0-3.8cm) LVEF (%)25 (>50%) Mitral Valve MV E Eohfheqf06.2cm/sMV A Qmxznuwa82.2cm/sE/A ratio1.7 TDI E/Lateral E'0.0E/Medial E'0.0 Tricuspid Valve TR Peak [id number]/sTR Peak Gr.[id number] LEFT VENTRICLE The Left Ventricle is moderately dilated. Posterior papillary muscle is mild to moderately calcified. There is normal left ventricular wall thickness. Left ventricle systolic function is severely impaired. The Ejection Fraction is 20-25%. There is severe global hypokinesis of the left ventricle. The left ventricular diastolic function is normal. No left ventricle thrombus noted on this study. RIGHT VENTRICLE The right ventricle is normal size. There is normal right ventricular wall thickness. Systolic function is severely reduced. ATRIA The left atrium size is normal. The right atrium size is normal. The interatrial septum is intact with no evidence for an atrial septal defect. AORTIC VALVE The aortic valve is normal in structure. There is mild aortic regurgitation. There is no aortic valvular stenosis. There is no aortic valvular vegetation. MITRAL VALVE The mitral valve is moderately thickened. Mitral annular calcification is mild to moderate. There is no evidence of mitral valve prolapse. There is no mitral valve stenosis. Mitral regurgitation is mild. TRICUSPID VALVE The tricuspid valve is normal in structure. There is mild tricuspid regurgitation. Right ventricular systolic pressure is estimated at 30 mmHg. There is borderline pulmonary hypertension. PULMONIC VALVE The pulmonic valve is not well visualized. There is no pulmonic valvular regurgitation. GREAT VESSELS The aortic root is normal in size. PERICARDIAL EFFUSION There is no significant pericardial effusion. <Conclusion> Left ventricle systolic function is severely impaired. The Ejection Fraction is 20-25%. There is mild aortic regurgitation. Mitral regurgitation is mild. There is mild tricuspid regurgitation. There is borderline pulmonary hypertension. There is no pulmonic valvular regurgitation.
[2016-12-04] MEDS: Albuterol-Ipratrop 3 mg / 0.5 (3 ml) UD INH SCH ×4 (01:09→20:01)
[2016-12-04] MEDS: cefTRIAXone IV 1 gm in Dextros 50 ML IVPB SCH (03:29)
[2016-12-04 06:00] LABS: ARTERIAL BLOOD GAS MODE BiPAP; ARTERIAL BLOOD HGB O2 SAT 96.2 % (95.0-98.0); CARBOXYHEMOGLOBIN 1.9 % (0.5-1.5); DRAW SITE LB; HHB 0.5 % (0.0-5.0); METHEMOGLOBIN 1.4 % (0.0-3.0)
[2016-12-04] MEDS: Metoprolol 1 mg/ml Inj IVP SCH ×3 (06:28→21:50)
[2016-12-04] MEDS: Nitroglycerin 2% Ointment Foilpak UD TOP SCH ×4 (06:28→17:41)
[2016-12-04 06:37] LABS: BASO % 0.2 % (0.0-2.0); EOS % 0.1 % (0.0-4.0); HEMATOCRIT 26.9 % (35.0-51.0); LYMPH # 0.2 K/uL (1.0-4.3); LYMPH % 8.5 % (20.0-40.0); MEAN CELL VOLUME 84.3 fL (80.0-94.0); MEAN CORPUSCULAR HEMOGLOBIN 26.3 pg (27.0-31.0); MEAN CORPUSCULAR HGB CONC 31.1 g/dL (33.0-37.0); MEAN PLATELET VOLUME 10.1 fL (7.2-11.7); MONO # 0.3 K/uL (0.0-0.8); MONO % 9.8 % (0.0-10.0); PLATELET COUNT 288 K/uL (130-400); RED CELL DISTRIBUTION WIDTH 25.7 % (11.5-14.5); WHITE BLOOD COUNT 2.6 K/uL (4.8-10.8)
[2016-12-04] MEDS ORDERED: Metoprolol 1 mg/ml Inj IVP ONE (06:38)
[2016-12-04] MEDS: Heparin25000 units/250ml 1/2NS 25,000 UNITS/250 ML BAG IV PRN (06:51)
[2016-12-04 06:54] LABS: ALB/GLOB RATIO 0.9 (1.0-2.1); BILIRUBIN,TOTAL 0.9 mg/dL (0.2-1.3); CALCIUM 8.3 mg/dl (8.6-10.4); MAGNESIUM 2.7 mg/dL (1.6-2.3); POTASSIUM 4.7 mmol/L (3.6-5.2); TOTAL PROTEIN 6.7 g/dL (6.3-8.3)
[2016-12-04] MEDS ORDERED: Etomidate 20 mg/10ml Inj IV ONE (08:00)
--- NOTE | 2016-12-04 08:00 | CP.CCUPN ---
<Stephani Johnson - Last Filed: 12/04/16 12:14> CCU Subjective - Physician Review Subjective (Free Text): Patient was seen and examined at bedside this AM. Patient is very lethargic and does not respond to commands. Per patient's clinical status was not able to review systems. Spoke with patient's daughter she stated that we should do whatever it is we need to do for her father. Although I explained the worsening of her father's clinical condition I don't believe she fully understands. Patient was intubated at bedside in the AM per daughter's consent. Spoke again with daughter and updated her on her father's condition requested consent for a central line however she refused consent for a central line. 12/04/16 08:05 12/04/16 10:53 CCU Objective - Vital Signs / Intake & Output Vital Signs (Last 4 hours): Vital Signs Temp Pulse Resp BP Pulse Ox 12/04/16 07:43 119 H 12/04/16 07:00 126 H 29 H 109/64 100 12/04/16 06:50 120 H 28 H 99/70 L 100 12/04/16 06:37 153 H 27 H 96/65 L 100 12/04/16 06:31 162 H 28 H 116/72 100 12/04/16 06:05 103 H 30 H 118/69 100 12/04/16 06:00 101 H 26 H 123/70 12/04/16 05:00 99 H 26 H 114/62 100 12/04/16 04:35 98 H 28 H 126/60 100 12/04/16 04:27 152 H 32 H 104/58 L 98 12/04/16 04:22 142 H 37 H 63/46 L 100 12/04/16 04:00 99.8 F H 104 H 27 H 125/67 100 Intake and Output (Last 8hrs): Intake & Output 12/03/16 12/04/16 12/04/16 22:59 06:59 14:59 Intake Total 105.6 405.6 13.2 Output Total 795 290 25 Balance -689.4 115.6 -11.8 Weight 147 lb 11.355 oz Intake: IV 250 Intake, IV Amount 105.6 155.6 13.2 Left Hand 50 Right 105.6 105.6 13.2 Output: Urine 795 290 25 Urethral (Powell) 795 290 25 Emesis 0 Other: # Bowel Movements 0 0 0 - Physical Exam Physical Exam Limitations: Positive for: Clinical Condition (lethargic and not responsive - patient was intubated at bedside this AM) Head: Positive for: Atraumatic, Normocephalic Mouth: Positive for: Dry Respiratory/Chest: Positive for: Respiratory Distress, Decreased Breath Sounds, Tachypneic. Negative for: Rales Cardiovascular: Positive for: Normal S1, S2, Irregular Rhythm (afib), Tachycardic Abdomen: Negative for: Tenderness, Distention, Normal Bowel Sounds (hypo bowel sounds ) Upper Extremity: Positive for: Normal Inspection Lower Extremity: Positive for: Normal Inspection. Negative for: Edema, CALF TENDERNESS, Tenderness, Swelling Neurological: Negative for: GCS=15 Skin: Positive for: Warm, Dry Psychiatric: Positive for: Alert. Negative for: Oriented x 3, Normal Insight, Normal Concentration - Medications Active Medications: Active Medications Generic Name Dose Route Start Last Admin Trade Name Freq PRN Reason Stop Dose Admin Albuterol/Ipratropium 3 ml 12/01/16 08:00 12/04/16 07:43 Duoneb 3 Mg/0.5 Mg (3 Ml) Ud INH 3 ml RQ6 LOUANN Administration Aspirin 300 mg 12/02/16 10:00 12/03/16 11:53 Aspirin Supp CO 300 mg DAILY LOUANN Administration Famotidine 20 mg 12/01/16 10:00 12/03/16 11:08 Pepcid IVP 20 mg DAILY LOUANN Administration Furosemide 40 mg 12/02/16 10:00 12/03/16 11:10 Lasix IVP 40 mg DAILY LOUANN Administration Ceftriaxone Sodium 50 mls @ 100 mls/hr 12/02/16 03:00 12/04/16 03:29 Rocephin Iv 1 Gm Duplex IVPB 100 mls/hr Q24H LOUANN Administration Heparin Sodium/Sodium Chloride 25,000 units in 250 mls @ 7.947 mls/hr 10:04 12/04/16 06:51 Heparin 79163 Units/250ml 1/2 Normal Saline IV 20 units/kg/hr .Q24H PRN 13.245 mls/hr PROTOCOL Administration Protocol 12 UNITS/KG/HR Insulin Human Regular 0 unit 12/04/16 07:11 Novolin R SC ACHS LOUANN Protocol Methylprednisolone 20 mg 12/02/16 10:00 12/03/16 22:28 Solu-Medrol IVP 20 mg Q12 LOUANN Administration Metoprolol Tartrate 2.5 mg 12/01/16 22:00 12/04/16 06:28 Lopressor IVP 2.5 mg Q8 LOUANN Administration Nicotine 1 patch 12/03/16 10:00 12/03/16 11:53 Nicoderm Cq TD 1 patch DAILY LOUANN Administration Nitroglycerin 1 ea 12/01/16 12:00 12/04/16 06:28 Nitro-Bid 2% Oint TOP 1 ea Q6 LOUANN Administration - Patient Studies Lab Studies: Microbiology Studies 12/01/16 16:00 S.aureus & Coag-Neg Staph PNA FISH - Final Blood Blood Culture - Preliminary Methicillin Resistant S Aureus Gram Stain - Final 12/01/16 16:00 Blood Culture - Preliminary Blood NO GROWTH AFTER 48 HOURS Lab Studies 12/04/16 12/04/16 12/04/16 Range/Units 07:20 06:26 06:26 WBC 2.6 L (4.8-10.8) K/uL RBC 3.19 L (4.40-5.90) Mil/uL Hgb 8.4 L (12.0-18.0) g/dL Hct 26.9 L (35.0-51.0) % MCV 84.3 D (80.0-94.0) fL MCH 26.3 L (27.0-31.0) pg MCHC 31.1 L (33.0-37.0) g/dL RDW 25.7 H (11.5-14.5) % Plt Count 288 (130-400) K/uL MPV 10.1 (7.2-11.7) fL Neut % (Auto) 81.4 H (50.0-75.0) % Lymph % (Auto) 8.5 L (20.0-40.0) % [place] % (Auto) 9.8 (0.0-10.0) % Eos % (Auto) 0.1 (0.0-4.0) % Baso % (Auto) 0.2 (0.0-2.0) % Neut # 2.1 (1.8-7.0) K/uL Lymph # 0.2 L (1.0-4.3) K/uL [place] # 0.3 (0.0-0.8) K/uL Eos # 0.0 (0.0-0.7) K/uL Baso # 0.0 (0.0-0.2) K/uL APTT (21-34) SECONDS Puncture Site pCO2 (35-45) mm/Hg pO2 (80-100) mm/Hg HCO3 (21-28) mmol/L ABG pH (7.35-7.45) ABG Total CO2 (22-28) mmol/L ABG O2 Saturation (95-98) % ABG Base Excess (-2.0-3.0) mmol/L ABG Hemoglobin (11.7-17.4) g/dL ABG Carboxyhemoglobin (0.5-1.5) % POC ABG HHb (Measured) (0.0-5.0) % ABG Methemoglobin (0.0-3.0) % Jose Test ABG Potassium (3.6-5.2) mmol/L A-a O2 Difference mm/Hg Respiratory Index Hgb O2 Saturation (95.0-98.0) % Sodium 143 (132-148) mmol/l Chloride 104 (98-107) mmol/L Glucose (75-110) mg/dl Lactate (0.7-2.1) mmol/L Vent Mode Mechanical Rate FiO2 % Inspiratory BiPAP Expiratory BiPAP Crit Value Called To Crit Value Called By Crit Value Read Back Blood Gas Notified Time Potassium 4.7 (3.6-5.2) mmol/L Carbon Dioxide 9 L* D (22-30) mmol/L Anion Gap 35 H (10-20) BUN 74 H (9-20) mg/dL Creatinine 2.6 H (0.8-1.5) MG/DL Est GFR ( Amer) 30 Est GFR (Non-Af Amer) 24 POC Glucose (mg/dL) 430 H* (65-110) mg/dL Random Glucose 419 H* D (75-110) mg/dL Calcium 8.3 L (8.6-10.4) mg/dl Phosphorus 6.0 H (2.5-4.5) mg/dL Magnesium 2.7 H (1.6-2.3) mg/dL Total Bilirubin 0.9 (0.2-1.3) mg/dL AST 50 (17-59) U/L ALT 134 H D (21-72) U/L Alkaline Phosphatase 135 H (38-126) U/L Ammonia (9-33) umol/L Total Protein 6.7 (6.3-8.3) g/dL Albumin 3.1 L (3.5-5.0) g/dL Globulin 3.6 (2.2-3.9) gm/dL Albumin/Globulin Ratio 0.9 L (1.0-2.1) Arterial Blood Potassium (3.6-5.2) mmol/L 12/04/16 12/04/16 12/03/16 Range/Units 06:26 05:33 22:48 WBC (4.8-10.8) K/uL RBC (4.40-5.90) Mil/uL Hgb (12.0-18.0) g/dL Hct (35.0-51.0) % MCV (80.0-94.0) fL MCH (27.0-31.0) pg MCHC (33.0-37.0) g/dL RDW (11.5-14.5) % Plt Count (130-400) K/uL MPV (7.2-11.7) fL Neut % (Auto) (50.0-75.0) % Lymph % (Auto) (20.0-40.0) % [place] % (Auto) (0.0-10.0) % Eos % (Auto) (0.0-4.0) % Baso % (Auto) (0.0-2.0) % Neut # (1.8-7.0) K/uL Lymph # (1.0-4.3) K/uL [place] # (0.0-0.8) K/uL Eos # (0.0-0.7) K/uL Baso # (0.0-0.2) K/uL APTT 53 H (21-34) SECONDS Puncture Site Lb pCO2 17 L* (35-45) mm/Hg pO2 157 H (80-100) mm/Hg HCO3 12.0 L (21-28) mmol/L ABG pH 7.29 L (7.35-7.45) ABG Total CO2 8.7 L (22-28) mmol/L ABG O2 Saturation 99.5 H (95-98) % ABG Base Excess -16.6 L (-2.0-3.0) mmol/L ABG Hemoglobin 8.2 L (11.7-17.4) g/dL ABG Carboxyhemoglobin 1.9 H (0.5-1.5) % POC ABG HHb (Measured) 0.5 (0.0-5.0) % ABG Methemoglobin 1.4 (0.0-3.0) % Jose Test Na ABG Potassium (3.6-5.2) mmol/L A-a O2 Difference 107.0 mm/Hg Respiratory Index 0.7 Hgb O2 Saturation 96.2 (95.0-98.0) % Sodium (132-148) mmol/l Chloride (98-107) mmol/L Glucose (75-110) mg/dl Lactate (0.7-2.1) mmol/L Vent Mode Bipap Mechanical Rate FiO2 40.0 % Inspiratory BiPAP 14 Expiratory BiPAP 7 Crit Value Called To Prema rn Crit Value Called By Aurelia group home counselor Crit Value Read Back Y Blood Gas Notified Time 600 Potassium (3.6-5.2) mmol/L Carbon Dioxide (22-30) mmol/L Anion Gap (10-20) BUN (9-20) mg/dL Creatinine (0.8-1.5) MG/DL Est GFR ( Amer) Est GFR (Non-Af Amer) POC Glucose (mg/dL) (65-110) mg/dL Random Glucose (75-110) mg/dL Calcium (8.6-10.4) mg/dl Phosphorus (2.5-4.5) mg/dL Magnesium (1.6-2.3) mg/dL Total Bilirubin (0.2-1.3) mg/dL AST (17-59) U/L ALT (21-72) U/L Alkaline Phosphatase (38-126) U/L Ammonia 10 (9-33) umol/L Total Protein (6.3-8.3) g/dL Albumin (3.5-5.0) g/dL Globulin (2.2-3.9) gm/dL Albumin/Globulin Ratio (1.0-2.1) Arterial Blood Potassium (3.6-5.2) mmol/L 12/03/16 12/03/16 12/03/16 Range/Units 21:13 16:09 11:04 WBC (4.8-10.8) K/uL RBC (4.40-5.90) Mil/uL Hgb (12.0-18.0) g/dL Hct (35.0-51.0) % MCV (80.0-94.0) fL MCH (27.0-31.0) pg MCHC (33.0-37.0) g/dL RDW (11.5-14.5) % Plt Count (130-400) K/uL MPV (7.2-11.7) fL Neut % (Auto) (50.0-75.0) % Lymph % (Auto) (20.0-40.0) % [place] % (Auto) (0.0-10.0) % Eos % (Auto) (0.0-4.0) % Baso % (Auto) (0.0-2.0) % Neut # (1.8-7.0) K/uL Lymph # (1.0-4.3) K/uL [place] # (0.0-0.8) K/uL Eos # (0.0-0.7) K/uL Baso # (0.0-0.2) K/uL APTT (21-34) SECONDS Puncture Site pCO2 (35-45) mm/Hg pO2 (80-100) mm/Hg HCO3 (21-28) mmol/L ABG pH (7.35-7.45) ABG Total CO2 (22-28) mmol/L ABG O2 Saturation (95-98) % ABG Base Excess (-2.0-3.0) mmol/L ABG Hemoglobin (11.7-17.4) g/dL ABG Carboxyhemoglobin (0.5-1.5) % POC ABG HHb (Measured) (0.0-5.0) % ABG Methemoglobin (0.0-3.0) % Jose Test ABG Potassium (3.6-5.2) mmol/L A-a O2 Difference mm/Hg Respiratory Index Hgb O2 Saturation (95.0-98.0) % Sodium (132-148) mmol/l Chloride (98-107) mmol/L Glucose (75-110) mg/dl Lactate (0.7-2.1) mmol/L Vent Mode Mechanical Rate FiO2 % Inspiratory BiPAP Expiratory BiPAP Crit Value Called To Crit Value Called By Crit Value Read Back Blood Gas Notified Time Potassium (3.6-5.2) mmol/L Carbon Dioxide (22-30) mmol/L Anion Gap (10-20) BUN (9-20) mg/dL Creatinine (0.8-1.5) MG/DL Est GFR ( Amer) Est GFR (Non-Af Amer) POC Glucose (mg/dL) 284 H 260 H 262 H (65-110) mg/dL Random Glucose (75-110) mg/dL Calcium (8.6-10.4) mg/dl Phosphorus (2.5-4.5) mg/dL Magnesium (1.6-2.3) mg/dL Total Bilirubin (0.2-1.3) mg/dL AST (17-59) U/L ALT (21-72) U/L Alkaline Phosphatase (38-126) U/L Ammonia (9-33) umol/L Total Protein (6.3-8.3) g/dL Albumin (3.5-5.0) g/dL Globulin (2.2-3.9) gm/dL Albumin/Globulin Ratio (1.0-2.1) Arterial Blood Potassium (3.6-5.2) mmol/L 12/03/16 Range/Units 07:59 WBC (4.8-10.8) K/uL RBC (4.40-5.90) Mil/uL Hgb (12.0-18.0) g/dL Hct (35.0-51.0) % MCV (80.0-94.0) fL MCH (27.0-31.0) pg MCHC (33.0-37.0) g/dL RDW (11.5-14.5) % Plt Count (130-400) K/uL MPV (7.2-11.7) fL Neut % (Auto) (50.0-75.0) % Lymph % (Auto) (20.0-40.0) % [place] % (Auto) (0.0-10.0) % Eos % (Auto) (0.0-4.0) % Baso % (Auto) (0.0-2.0) % Neut # (1.8-7.0) K/uL Lymph # (1.0-4.3) K/uL [place] # (0.0-0.8) K/uL Eos # (0.0-0.7) K/uL Baso # (0.0-0.2) K/uL APTT (21-34) SECONDS Puncture Site L/f pCO2 21 L (35-45) mm/Hg pO2 158 H (80-100) mm/Hg HCO3 17.9 L (21-28) mmol/L ABG pH 7.41 (7.35-7.45) ABG Total CO2 13.9 L (22-28) mmol/L ABG O2 Saturation 99.6 H (95-98) % ABG Base Excess -9.1 L (-2.0-3.0) mmol/L ABG Hemoglobin (11.7-17.4) g/dL ABG Carboxyhemoglobin (0.5-1.5) % POC ABG HHb (Measured) (0.0-5.0) % ABG Methemoglobin (0.0-3.0) % Jose Test Na ABG Potassium 4.5 (3.6-5.2) mmol/L A-a O2 Difference 172.0 mm/Hg Respiratory Index 1.1 Hgb O2 Saturation (95.0-98.0) % Sodium 138.0 (132-148) mmol/l Chloride 110.0 H (98-107) mmol/L Glucose 311 H (75-110) mg/dl Lactate 1.9 (0.7-2.1) mmol/L Vent Mode Mechanical Rate 18 FiO2 50.0 % Inspiratory BiPAP 16 Expiratory BiPAP 8 Crit Value Called To Dr combs Crit Value Called By Ori arevalo spd tech Crit Value Read Back Y Blood Gas Notified Time 800 Potassium (3.6-5.2) mmol/L Carbon Dioxide (22-30) mmol/L Anion Gap (10-20) BUN (9-20) mg/dL Creatinine (0.8-1.5) MG/DL Est GFR ( Amer) Est GFR (Non-Af Amer) POC Glucose (mg/dL) (65-110) mg/dL Random Glucose (75-110) mg/dL Calcium (8.6-10.4) mg/dl Phosphorus (2.5-4.5) mg/dL Magnesium (1.6-2.3) mg/dL Total Bilirubin (0.2-1.3) mg/dL AST (17-59) U/L ALT (21-72) U/L Alkaline Phosphatase (38-126) U/L Ammonia (9-33) umol/L Total Protein (6.3-8.3) g/dL Albumin (3.5-5.0) g/dL Globulin (2.2-3.9) gm/dL Albumin/Globulin Ratio (1.0-2.1) Arterial Blood Potassium 4.5 (3.6-5.2) mmol/L Laboratory Results - last 24 hr 12/03/16 12/03/16 12/03/16 07:59 11:04 16:09 WBC RBC Hgb Hct MCV MCH MCHC RDW Plt Count MPV Neut % (Auto) Lymph % (Auto) [place] % (Auto) Eos % (Auto) Baso % (Auto) Neut # Lymph # [place] # Eos # Baso # APTT Puncture Site L/f pCO2 21 L pO2 158 H HCO3 17.9 L ABG pH 7.41 ABG Total CO2 13.9 L ABG O2 Saturation 99.6 H ABG Base Excess -9.1 L ABG Hemoglobin ABG Carboxyhemoglobin POC ABG HHb (Measured) ABG Methemoglobin Jose Test Na ABG Potassium 4.5 A-a O2 Difference 172.0 Respiratory Index 1.1 Hgb O2 Saturation Sodium 138.0 Chloride 110.0 H Glucose 311 H Lactate 1.9 Vent Mode Mechanical Rate 18 FiO2 50.0 Inspiratory BiPAP 16 Expiratory BiPAP 8 Crit Value Called To Dr combs Crit Value Called By Ori arevalo spd tech Crit Value Read Back Y Blood Gas Notified Time 800 Potassium Carbon Dioxide Anion Gap BUN Creatinine Est GFR ( Amer) Est GFR (Non-Af Amer) POC Glucose (mg/dL) 262 H 260 H Random Glucose Calcium Phosphorus Magnesium Total Bilirubin AST ALT Alkaline Phosphatase Ammonia Total Protein Albumin Globulin Albumin/Globulin Ratio Arterial Blood Potassium 4.5 12/03/16 12/03/16 12/04/16 21:13 22:48 05:33 WBC RBC Hgb Hct MCV MCH MCHC RDW Plt Count MPV Neut % (Auto) Lymph % (Auto) [place] % (Auto) Eos % (Auto) Baso % (Auto) Neut # Lymph # [place] # Eos # Baso # APTT Puncture Site Lb pCO2 17 L* pO2 157 H HCO3 12.0 L ABG pH 7.29 L ABG Total CO2 8.7 L ABG O2 Saturation 99.5 H ABG Base Excess -16.6 L ABG Hemoglobin 8.2 L ABG Carboxyhemoglobin 1.9 H POC ABG HHb (Measured) 0.5 ABG Methemoglobin 1.4 Jose Test Na ABG Potassium A-a O2 Difference 107.0 Respiratory Index 0.7 Hgb O2 Saturation 96.2 Sodium Chloride Glucose Lactate Vent Mode Bipap Mechanical Rate FiO2 40.0 Inspiratory BiPAP 14 Expiratory BiPAP 7 Crit Value Called To Prema rn Crit Value Called By [facility] group home counselor Crit Value Read Back Y Blood Gas Notified Time 600 Potassium Carbon Dioxide Anion Gap BUN Creatinine Est GFR ( Amer) Est GFR (Non-Af Amer) POC Glucose (mg/dL) 284 H Random Glucose Calcium Phosphorus Magnesium Total Bilirubin AST ALT Alkaline Phosphatase Ammonia 10 Total Protein Albumin Globulin Albumin/Globulin Ratio Arterial Blood Potassium 12/04/16 12/04/16 12/04/16 06:26 06:26 06:26 WBC 2.6 L RBC 3.19 L Hgb 8.4 L Hct 26.9 L MCV 84.3 D MCH 26.3 L MCHC 31.1 L RDW 25.7 H Plt Count 288 MPV 10.1 Neut % (Auto) 81.4 H Lymph % (Auto) 8.5 L [place] % (Auto) 9.8 Eos % (Auto) 0.1 Baso % (Auto) 0.2 Neut # 2.1 Lymph # 0.2 L [place] # 0.3 Eos # 0.0 Baso # 0.0 APTT 53 H Puncture Site pCO2 pO2 HCO3 ABG pH ABG Total CO2 ABG O2 Saturation ABG Base Excess ABG Hemoglobin ABG Carboxyhemoglobin POC ABG HHb (Measured) ABG Methemoglobin Jose Test ABG Potassium A-a O2 Difference Respiratory Index Hgb O2 Saturation Sodium 143 Chloride 104 Glucose Lactate Vent Mode Mechanical Rate FiO2 Inspiratory BiPAP Expiratory BiPAP Crit Value Called To Crit Value Called By Crit Value Read Back Blood Gas Notified Time Potassium 4.7 Carbon Dioxide 9 L* D Anion Gap 35 H BUN 74 H Creatinine 2.6 H Est GFR ( Amer) 30 Est GFR (Non-Af Amer) 24 POC Glucose (mg/dL) Random Glucose 419 H* D Calcium 8.3 L Phosphorus 6.0 H Magnesium 2.7 H Total Bilirubin 0.9 AST 50 ALT 134 H D Alkaline Phosphatase 135 H Ammonia Total Protein 6.7 Albumin 3.1 L Globulin 3.6 Albumin/Globulin Ratio 0.9 L Arterial Blood Potassium 12/04/16 07:20 WBC RBC Hgb Hct MCV MCH MCHC RDW Plt Count MPV Neut % (Auto) Lymph % (Auto) [place] % (Auto) Eos % (Auto) Baso % (Auto) Neut # Lymph # [place] # Eos # Baso # APTT Puncture Site pCO2 pO2 HCO3 ABG pH ABG Total CO2 ABG O2 Saturation ABG Base Excess ABG Hemoglobin ABG Carboxyhemoglobin POC ABG HHb (Measured) ABG Methemoglobin Jose Test ABG Potassium A-a O2 Difference Respiratory Index Hgb O2 Saturation Sodium Chloride Glucose Lactate Vent Mode Mechanical Rate FiO2 Inspiratory BiPAP Expiratory BiPAP Crit Value Called To Crit Value Called By Crit Value Read Back Blood Gas Notified Time Potassium Carbon Dioxide Anion Gap BUN Creatinine Est GFR ( Amer) Est GFR (Non-Af Amer) POC Glucose (mg/dL) 430 H* Random Glucose Calcium Phosphorus Magnesium Total Bilirubin AST ALT Alkaline Phosphatase Ammonia Total Protein Albumin Globulin Albumin/Globulin Ratio Arterial Blood Potassium Fingerstick Blood Sugar Results: 284 Review of Systems - Review of Systems Systems not reviewed;Unavailable: Intubated Critical Care Progress Note - Nutrition Nutrition: Nutrition Category Date Time Status Liquid Diet [DIET] Diets 12/02/16 Lunch Active Assessment/Plan (1) CHF (congestive heart failure) Assessment and plan: 71-year-old male with history of COPD hypertension, CAD, heart failure, acute non-ST elevation OR complicated with the cardiac shock now. Neuro: Sedated Pulm: Patient was intubated today 12/04 for respiratory distress and worsening chest x- ray CV: Patient is in cardiac shock - per Dr. Snyder pt is not stable for cardiac cath Admitted with NSTEMI Cardio Consult: Dr. Snyder and Dr. Apple --> help appreciated Repeat ECHO showed EF of 20-25%, systolic dysfunction Heme Neutropenia secondary to Myelodysplastic Syndrome Heme/Onc Consult: Dr. Knutson --> help appreciated GI: No acute issues Renal: CKD Endo: Diabetes Accuchecks/Insulin Sliding Scale ID: Staph Aureus - Blood Culture Ceftriaxone started on 12/02 DVT proph: SCDs, heparin subcutaneous GI Proph: Pepcid 20mg IVP Daily Code Status: full code Case discussed with Dr. Cody Johnson PGY-1 Current Visit: Yes Status: Chronic <Eddy Ross S - Last Filed: 12/04/16 18:22> CCU Objective - Vital Signs / Intake & Output Vital Signs (Last 4 hours): Vital Signs Temp Pulse Resp BP Pulse Ox 12/04/16 18:00 97.9 F 78 20 100 12/04/16 17:33 77 20 96/60 L 100 12/04/16 17:03 72 17 90/50 L 98 12/04/16 17:00 72 21 99 12/04/16 16:57 72 22 86/56 L 99 12/04/16 16:33 72 20 89/51 L 98 12/04/16 16:03 76 23 86/50 L 98 12/04/16 16:00 74 21 99 12/04/16 15:45 72 21 83/47 L 99 12/04/16 15:37 74 22 89/46 L 100 12/04/16 15:33 74 24 87/46 L 100 12/04/16 15:03 75 23 90/42 L 99 12/04/16 15:00 75 23 99 12/04/16 14:33 80 21 101/54 L 100 Intake and Output (Last 8hrs): Intake & Output 12/04/16 12/04/16 12/04/16 06:59 14:59 22:59 Intake Total 405.6 353.2 200.4 Output Total 290 265 260 Balance 115.6 88.2 -59.6 Weight 147 lb 11.355 oz Intake: IV 250 0 100 Intake, IV Amount 155.6 353.2 100.4 Left Hand 50 200 Right 105.6 105.6 52.8 Right PICC 47.6 47.6 Output: Urine 290 265 260 Urethral ([place]) 290 265 260 Other: # Bowel Movements 0 0 - Medications Active Medications: Active Medications Generic Name Dose Route Start Last Admin Trade Name Freq PRN Reason Stop Dose Admin Albuterol/Ipratropium 3 ml 12/01/16 08:00 12/04/16 13:56 Duoneb 3 Mg/0.5 Mg (3 Ml) Ud INH 3 ml RQ6 LOUANN Administration Aspirin 300 mg 12/02/16 10:00 12/04/16 10:38 Aspirin Supp CO 300 mg DAILY LOUANN Administration Famotidine 20 mg 12/01/16 10:00 12/04/16 10:18 Pepcid IVP 20 mg DAILY LOUANN Administration Heparin Sodium/Sodium Chloride 25,000 units in 250 mls @ 7.947 mls/hr 10:04 12/04/16 06:51 Heparin 30937 Units/250ml 1/2 Normal Saline IV 20 units/kg/hr .Q24H PRN 13.245 mls/hr PROTOCOL Administration Protocol 12 UNITS/KG/HR Propofol 1,000 mg in 100 mls @ 2.01 mls/hr 12/04/16 08:54 12/04/16 17:23 Diprivan IV 30 mcg/kg/min .Q24H PRN 12.06 mls/hr TITRATE PER MD ORDER Administration Protocol 5 MCG/KG/MIN Diltiazem HCl 125 mg/ Sodium 125 mls @ 5 mls/hr 12/04/16 13:00 12/04/16 13:16 Chloride IV 5 mg/hr .Q24H LOUANN 5 mls/hr Protocol Administration 5 MG/HR Daptomycin 360 mg/ Sodium 100 mls @ 100 mls/hr 12/04/16 18:00 12/04/16 17:24 Chloride IV 12/09/16 18:01 100 mls/hr Q48H LOUANN Administration Tigecycline 50 mg/ Dextrose 100 mls @ 100 mls/hr 12/05/16 17:00 IVPB Q12H LOUANN Cefepime HCl 1 gm/ Dextrose 50 mls @ 100 mls/hr 12/04/16 17:00 IVPB Q24H LOUANN Insulin Human Regular 0 unit 12/04/16 07:11 12/04/16 13:15 Novolin R SC 10 unit ACHS LOUANN Administration Protocol Methylprednisolone 20 mg 12/02/16 10:00 12/04/16 10:18 Solu-Medrol IVP 20 mg Q12 LOUANN Administration Metoprolol Tartrate 2.5 mg 12/01/16 22:00 12/04/16 17:13 Lopressor IVP Not Given Q8 [facility] Nicotine 1 patch 12/03/16 10:00 12/04/16 10:19 Nicoderm Cq TD 1 patch DAILY LOUANN Administration Nitroglycerin 1 ea 12/01/16 12:00 12/04/16 17:41 Nitro-Bid 2% Oint TOP Not Given Q6 [facility] - Patient Studies Lab Studies: Microbiology Studies 12/01/16 16:00 Blood Culture - Preliminary Blood NO GROWTH AFTER 3 DAYS 12/03/16 Unknown Gram Stain - Final Ankle - Right 12/01/16 16:00 S.aureus & Coag-Neg Staph PNA FISH - Final Blood Blood Culture - Preliminary Methicillin Resistant S Aureus Gram Stain - Final Lab Studies 12/04/16 12/04/16 12/04/16 Range/Units 17:58 11:25 09:45 WBC (4.8-10.8) K/uL RBC (4.40-5.90) Mil/uL Hgb (12.0-18.0) g/dL Hct (35.0-51.0) % MCV (80.0-94.0) fL MCH (27.0-31.0) pg MCHC (33.0-37.0) g/dL RDW (11.5-14.5) % Plt Count (130-400) K/uL MPV (7.2-11.7) fL Neut % (Auto) (50.0-75.0) % Lymph % (Auto) (20.0-40.0) % [place] % (Auto) (0.0-10.0) % Eos % (Auto) (0.0-4.0) % Baso % (Auto) (0.0-2.0) % Neut # (1.8-7.0) K/uL Lymph # (1.0-4.3) K/uL [place] # (0.0-0.8) K/uL Eos # (0.0-0.7) K/uL Baso # (0.0-0.2) K/uL Neutrophils % (Manual) (50-75) % Band Neutrophils % (0-2) % Lymphocytes % (Manual) (20-40) % Monocytes % (Manual) (0-10) % Metamyelocytes % (0-0) % Platelet Estimate (NORMAL) Large Platelets Hypochromasia (manual) Anisocytosis (manual) APTT (21-34) SECONDS Puncture Site L/f pCO2 22 L (35-45) mm/Hg pO2 182 H (80-100) mm/Hg HCO3 12.0 L (21-28) mmol/L ABG pH 7.22 L (7.35-7.45) ABG Total CO2 9.7 L (22-28) mmol/L ABG O2 Saturation 99.6 H (95-98) % ABG Base Excess -16.7 L (-2.0-3.0) mmol/L ABG Hemoglobin (11.7-17.4) g/dL ABG Carboxyhemoglobin (0.5-1.5) % POC ABG HHb (Measured) (0.0-5.0) % ABG Methemoglobin (0.0-3.0) % Jose Test Na ABG Potassium 4.2 (3.6-5.2) mmol/L A-a O2 Difference 504.0 mm/Hg Respiratory Index 2.8 Hgb O2 Saturation (95.0-98.0) % Glucose 387 H (75-110) mg/dl Lactate 1.6 (0.7-2.1) mmol/L Vent Mode FiO2 100.0 % Tidal Volume 500 PEEP 6 Inspiratory BiPAP Expiratory BiPAP Crit Value Called To Dr ross Crit Value Called By Ori arevalo spd tech Crit Value Read Back Y Blood Gas Notified Time 950 Sodium 143.0 (132-148) mmol/L Potassium (3.6-5.2) mmol/L Chloride 111.0 H (98-107) mmol/L Carbon Dioxide (22-30) mmol/L Anion Gap (10-20) BUN (9-20) mg/dL Creatinine (0.8-1.5) MG/DL Est GFR ( Amer) Est GFR (Non-Af Amer) POC Glucose (mg/dL) 357 H 445 H* (65-110) mg/dL Random Glucose (75-110) mg/dL Calcium (8.6-10.4) mg/dl Phosphorus (2.5-4.5) mg/dL Magnesium (1.6-2.3) mg/dL Total Bilirubin (0.2-1.3) mg/dL AST (17-59) U/L ALT (21-72) U/L Alkaline Phosphatase (38-126) U/L Ammonia (9-33) umol/L Total Protein (6.3-8.3) g/dL Albumin (3.5-5.0) g/dL Globulin (2.2-3.9) gm/dL Albumin/Globulin Ratio (1.0-2.1) Arterial Blood Potassium 4.2 (3.6-5.2) mmol/L 12/04/16 12/04/16 12/04/16 Range/Units 07:20 06:26 06:26 WBC 2.6 L (4.8-10.8) K/uL RBC 3.19 L (4.40-5.90) Mil/uL Hgb 8.4 L (12.0-18.0) g/dL Hct 26.9 L (35.0-51.0) % MCV 84.3 D (80.0-94.0) fL MCH 26.3 L (27.0-31.0) pg MCHC 31.1 L (33.0-37.0) g/dL RDW 25.7 H (11.5-14.5) % Plt Count 288 (130-400) K/uL MPV 10.1 (7.2-11.7) fL Neut % (Auto) 81.4 H (50.0-75.0) % Lymph % (Auto) 8.5 L (20.0-40.0) % [place] % (Auto) 9.8 (0.0-10.0) % Eos % (Auto) 0.1 (0.0-4.0) % Baso % (Auto) 0.2 (0.0-2.0) % Neut # 2.1 (1.8-7.0) K/uL Lymph # 0.2 L (1.0-4.3) K/uL [place] # 0.3 (0.0-0.8) K/uL Eos # 0.0 (0.0-0.7) K/uL Baso # 0.0 (0.0-0.2) K/uL Neutrophils % (Manual) 68 (50-75) % Band Neutrophils % 9 H (0-2) % Lymphocytes % (Manual) 10 L (20-40) % Monocytes % (Manual) 12 H (0-10) % Metamyelocytes % 1 H (0-0) % Platelet Estimate Normal (NORMAL) Large Platelets Present Hypochromasia (manual) Slight Anisocytosis (manual) Moderate APTT (21-34) SECONDS Puncture Site pCO2 (35-45) mm/Hg pO2 (80-100) mm/Hg HCO3 (21-28) mmol/L ABG pH (7.35-7.45) ABG Total CO2 (22-28) mmol/L ABG O2 Saturation (95-98) % ABG Base Excess (-2.0-3.0) mmol/L ABG Hemoglobin (11.7-17.4) g/dL ABG Carboxyhemoglobin (0.5-1.5) % POC ABG HHb (Measured) (0.0-5.0) % ABG Methemoglobin (0.0-3.0) % Jose Test ABG Potassium (3.6-5.2) mmol/L A-a O2 Difference mm/Hg Respiratory Index Hgb O2 Saturation (95.0-98.0) % Glucose (75-110) mg/dl Lactate (0.7-2.1) mmol/L Vent Mode FiO2 % Tidal Volume PEEP Inspiratory BiPAP Expiratory BiPAP Crit Value Called To Crit Value Called By Crit Value Read Back Blood Gas Notified Time Sodium 143 (132-148) mmol/L Potassium 4.7 (3.6-5.2) mmol/L Chloride 104 (98-107) mmol/L Carbon Dioxide 9 L* D (22-30) mmol/L Anion Gap 35 H (10-20) BUN 74 H (9-20) mg/dL Creatinine 2.6 H (0.8-1.5) MG/DL Est GFR ( Amer) 30 Est GFR (Non-Af Amer) 24 POC Glucose (mg/dL) 430 H* (65-110) mg/dL Random Glucose 419 H* D (75-110) mg/dL Calcium 8.3 L (8.6-10.4) mg/dl Phosphorus 6.0 H (2.5-4.5) mg/dL Magnesium 2.7 H (1.6-2.3) mg/dL Total Bilirubin 0.9 (0.2-1.3) mg/dL AST 50 (17-59) U/L ALT 134 H D (21-72) U/L Alkaline Phosphatase 135 H (38-126) U/L Ammonia (9-33) umol/L Total Protein 6.7 (6.3-8.3) g/dL Albumin 3.1 L (3.5-5.0) g/dL Globulin 3.6 (2.2-3.9) gm/dL Albumin/Globulin Ratio 0.9 L (1.0-2.1) Arterial Blood Potassium (3.6-5.2) mmol/L 12/04/16 12/04/16 12/03/16 Range/Units 06:26 05:33 22:48 WBC (4.8-10.8) K/uL RBC (4.40-5.90) Mil/uL Hgb (12.0-18.0) g/dL Hct (35.0-51.0) % MCV (80.0-94.0) fL MCH (27.0-31.0) pg MCHC (33.0-37.0) g/dL RDW (11.5-14.5) % Plt Count (130-400) K/uL MPV (7.2-11.7) fL Neut % (Auto) (50.0-75.0) % Lymph % (Auto) (20.0-40.0) % [place] % (Auto) (0.0-10.0) % Eos % (Auto) (0.0-4.0) % Baso % (Auto) (0.0-2.0) % Neut # (1.8-7.0) K/uL Lymph # (1.0-4.3) K/uL [place] # (0.0-0.8) K/uL Eos # (0.0-0.7) K/uL Baso # (0.0-0.2) K/uL Neutrophils % (Manual) (50-75) % Band Neutrophils % (0-2) % Lymphocytes % (Manual) (20-40) % Monocytes % (Manual) (0-10) % Metamyelocytes % (0-0) % Platelet Estimate (NORMAL) Large Platelets Hypochromasia (manual) Anisocytosis (manual) APTT 53 H (21-34) SECONDS Puncture Site Lb pCO2 17 L* (35-45) mm/Hg pO2 157 H (80-100) mm/Hg HCO3 12.0 L (21-28) mmol/L ABG pH 7.29 L (7.35-7.45) ABG Total CO2 8.7 L (22-28) mmol/L ABG O2 Saturation 99.5 H (95-98) % ABG Base Excess -16.6 L (-2.0-3.0) mmol/L ABG Hemoglobin 8.2 L (11.7-17.4) g/dL ABG Carboxyhemoglobin 1.9 H (0.5-1.5) % POC ABG HHb (Measured) 0.5 (0.0-5.0) % ABG Methemoglobin 1.4 (0.0-3.0) % Jose Test Na ABG Potassium (3.6-5.2) mmol/L A-a O2 Difference 107.0 mm/Hg Respiratory Index 0.7 Hgb O2 Saturation 96.2 (95.0-98.0) % Glucose (75-110) mg/dl Lactate (0.7-2.1) mmol/L Vent Mode Bipap FiO2 40.0 % Tidal Volume PEEP Inspiratory BiPAP 14 Expiratory BiPAP 7 Crit Value Called To Prema rn Crit Value Called By [facility] counselor Crit Value Read Back Y Blood Gas Notified Time 600 Sodium (132-148) mmol/L Potassium (3.6-5.2) mmol/L Chloride (98-107) mmol/L Carbon Dioxide (22-30) mmol/L Anion Gap (10-20) BUN (9-20) mg/dL Creatinine (0.8-1.5) MG/DL Est GFR ( Amer) Est GFR (Non-Af Amer) POC Glucose (mg/dL) (65-110) mg/dL Random Glucose (75-110) mg/dL Calcium (8.6-10.4) mg/dl Phosphorus (2.5-4.5) mg/dL Magnesium (1.6-2.3) mg/dL Total Bilirubin (0.2-1.3) mg/dL AST (17-59) U/L ALT (21-72) U/L Alkaline Phosphatase (38-126) U/L Ammonia 10 (9-33) umol/L Total Protein (6.3-8.3) g/dL Albumin (3.5-5.0) g/dL Globulin (2.2-3.9) gm/dL Albumin/Globulin Ratio (1.0-2.1) Arterial Blood Potassium (3.6-5.2) mmol/L 12/03/16 Range/Units 21:13 WBC (4.8-10.8) K/uL RBC (4.40-5.90) Mil/uL Hgb (12.0-18.0) g/dL Hct (35.0-51.0) % MCV (80.0-94.0) fL MCH (27.0-31.0) pg MCHC (33.0-37.0) g/dL RDW (11.5-14.5) % Plt Count (130-400) K/uL MPV (7.2-11.7) fL Neut % (Auto) (50.0-75.0) % Lymph % (Auto) (20.0-40.0) % [place] % (Auto) (0.0-10.0) % Eos % (Auto) (0.0-4.0) % Baso % (Auto) (0.0-2.0) % Neut # (1.8-7.0) K/uL Lymph # (1.0-4.3) K/uL [place] # (0.0-0.8) K/uL Eos # (0.0-0.7) K/uL Baso # (0.0-0.2) K/uL Neutrophils % (Manual) (50-75) % Band Neutrophils % (0-2) % Lymphocytes % (Manual) (20-40) % Monocytes % (Manual) (0-10) % Metamyelocytes % (0-0) % Platelet Estimate (NORMAL) Large Platelets Hypochromasia (manual) Anisocytosis (manual) APTT (21-34) SECONDS Puncture Site pCO2 (35-45) mm/Hg pO2 (80-100) mm/Hg HCO3 (21-28) mmol/L ABG pH (7.35-7.45) ABG Total CO2 (22-28) mmol/L ABG O2 Saturation (95-98) % ABG Base Excess (-2.0-3.0) mmol/L ABG Hemoglobin (11.7-17.4) g/dL ABG Carboxyhemoglobin (0.5-1.5) % POC ABG HHb (Measured) (0.0-5.0) % ABG Methemoglobin (0.0-3.0) % Jose Test ABG Potassium (3.6-5.2) mmol/L A-a O2 Difference mm/Hg Respiratory Index Hgb O2 Saturation (95.0-98.0) % Glucose (75-110) mg/dl Lactate (0.7-2.1) mmol/L Vent Mode FiO2 % Tidal Volume PEEP Inspiratory BiPAP Expiratory BiPAP Crit Value Called To Crit Value Called By Crit Value Read Back Blood Gas Notified Time Sodium (132-148) mmol/L Potassium (3.6-5.2) mmol/L Chloride (98-107) mmol/L Carbon Dioxide (22-30) mmol/L Anion Gap (10-20) BUN (9-20) mg/dL Creatinine (0.8-1.5) MG/DL Est GFR ( Amer) Est GFR (Non-Af Amer) POC Glucose (mg/dL) 284 H (65-110) mg/dL Random Glucose (75-110) mg/dL Calcium (8.6-10.4) mg/dl Phosphorus (2.5-4.5) mg/dL Magnesium (1.6-2.3) mg/dL Total Bilirubin (0.2-1.3) mg/dL AST (17-59) U/L ALT (21-72) U/L Alkaline Phosphatase (38-126) U/L Ammonia (9-33) umol/L Total Protein (6.3-8.3) g/dL Albumin (3.5-5.0) g/dL Globulin (2.2-3.9) gm/dL Albumin/Globulin Ratio (1.0-2.1) Arterial Blood Potassium (3.6-5.2) mmol/L Laboratory Results - last 24 hr 12/03/16 12/03/16 12/04/16 21:13 22:48 05:33 WBC RBC Hgb Hct MCV MCH MCHC RDW Plt Count MPV Neut % (Auto) Lymph % (Auto) [place] % (Auto) Eos % (Auto) Baso % (Auto) Neut # Lymph # [place] # Eos # Baso # Neutrophils % (Manual) Band Neutrophils % Lymphocytes % (Manual) Monocytes % (Manual) Metamyelocytes % Platelet Estimate Large Platelets Hypochromasia (manual) Anisocytosis (manual) APTT Puncture Site Lb pCO2 17 L* pO2 157 H HCO3 12.0 L ABG pH 7.29 L ABG Total CO2 8.7 L ABG O2 Saturation 99.5 H ABG Base Excess -16.6 L ABG Hemoglobin 8.2 L ABG Carboxyhemoglobin 1.9 H POC ABG HHb (Measured) 0.5 ABG Methemoglobin 1.4 Jose Test Na ABG Potassium A-a O2 Difference 107.0 Respiratory Index 0.7 Hgb O2 Saturation 96.2 Glucose Lactate Vent Mode Bipap FiO2 40.0 Tidal Volume PEEP Inspiratory BiPAP 14 Expiratory BiPAP 7 Crit Value Called To Prema rn Crit Value Called By [facility] counselor Crit Value Read Back Y Blood Gas Notified Time 600 Sodium Potassium Chloride Carbon Dioxide Anion Gap BUN Creatinine Est GFR ( Amer) Est GFR (Non-Af Amer) POC Glucose (mg/dL) 284 H Random Glucose Calcium Phosphorus Magnesium Total Bilirubin AST ALT Alkaline Phosphatase Ammonia 10 Total Protein Albumin Globulin Albumin/Globulin Ratio Arterial Blood Potassium 12/04/16 12/04/16 12/04/16 06:26 06:26 06:26 WBC 2.6 L RBC 3.19 L Hgb 8.4 L Hct 26.9 L MCV 84.3 D MCH 26.3 L MCHC 31.1 L RDW 25.7 H Plt Count 288 MPV 10.1 Neut % (Auto) 81.4 H Lymph % (Auto) 8.5 L [place] % (Auto) 9.8 Eos % (Auto) 0.1 Baso % (Auto) 0.2 Neut # 2.1 Lymph # 0.2 L [place] # 0.3 Eos # 0.0 Baso # 0.0 Neutrophils % (Manual) 68 Band Neutrophils % 9 H Lymphocytes % (Manual) 10 L Monocytes % (Manual) 12 H Metamyelocytes % 1 H Platelet Estimate Normal Large Platelets Present Hypochromasia (manual) Slight Anisocytosis (manual) Moderate APTT 53 H Puncture Site pCO2 pO2 HCO3 ABG pH ABG Total CO2 ABG O2 Saturation ABG Base Excess ABG Hemoglobin ABG Carboxyhemoglobin POC ABG HHb (Measured) ABG Methemoglobin Jose Test ABG Potassium A-a O2 Difference Respiratory Index Hgb O2 Saturation Glucose Lactate Vent Mode FiO2 Tidal Volume PEEP Inspiratory BiPAP Expiratory BiPAP Crit Value Called To Crit Value Called By Crit Value Read Back Blood Gas Notified Time Sodium 143 Potassium 4.7 Chloride 104 Carbon Dioxide 9 L* D Anion Gap 35 H BUN 74 H Creatinine 2.6 H Est GFR ( Amer) 30 Est GFR (Non-Af Amer) 24 POC Glucose (mg/dL) Random Glucose 419 H* D Calcium 8.3 L Phosphorus 6.0 H Magnesium 2.7 H Total Bilirubin 0.9 AST 50 ALT 134 H D Alkaline Phosphatase 135 H Ammonia Total Protein 6.7 Albumin 3.1 L Globulin 3.6 Albumin/Globulin Ratio 0.9 L Arterial Blood Potassium 12/04/16 12/04/16 12/04/16 07:20 09:45 11:25 WBC RBC Hgb Hct MCV MCH MCHC RDW Plt Count MPV Neut % (Auto) Lymph % (Auto) [place] % (Auto) Eos % (Auto) Baso % (Auto) Neut # Lymph # [place] # Eos # Baso # Neutrophils % (Manual) Band Neutrophils % Lymphocytes % (Manual) Monocytes % (Manual) Metamyelocytes % Platelet Estimate Large Platelets Hypochromasia (manual) Anisocytosis (manual) APTT Puncture Site L/f pCO2 22 L pO2 182 H HCO3 12.0 L ABG pH 7.22 L ABG Total CO2 9.7 L ABG O2 Saturation 99.6 H ABG Base Excess -16.7 L ABG Hemoglobin ABG Carboxyhemoglobin POC ABG HHb (Measured) ABG Methemoglobin Jose Test Na ABG Potassium 4.2 A-a O2 Difference 504.0 Respiratory Index 2.8 Hgb O2 Saturation Glucose 387 H Lactate 1.6 Vent Mode FiO2 100.0 Tidal Volume 500 PEEP 6 Inspiratory BiPAP Expiratory BiPAP Crit Value Called To Dr ross Crit Value Called By Ori arevalo spd tech Crit Value Read Back Y Blood Gas Notified Time 950 Sodium 143.0 Potassium Chloride 111.0 H Carbon Dioxide Anion Gap BUN Creatinine Est GFR ( Amer) Est GFR (Non-Af Amer) POC Glucose (mg/dL) 430 H* 445 H* Random Glucose Calcium Phosphorus Magnesium Total Bilirubin AST ALT Alkaline Phosphatase Ammonia Total Protein Albumin Globulin Albumin/Globulin Ratio Arterial Blood Potassium 4.2 12/04/16 17:58 WBC RBC Hgb Hct MCV MCH MCHC RDW Plt Count MPV Neut % (Auto) Lymph % (Auto) [place] % (Auto) Eos % (Auto) Baso % (Auto) Neut # Lymph # [place] # Eos # Baso # Neutrophils % (Manual) Band Neutrophils % Lymphocytes % (Manual) Monocytes % (Manual) Metamyelocytes % Platelet Estimate Large Platelets Hypochromasia (manual) Anisocytosis (manual) APTT Puncture Site pCO2 pO2 HCO3 ABG pH ABG Total CO2 ABG O2 Saturation ABG Base Excess ABG Hemoglobin ABG Carboxyhemoglobin POC ABG HHb (Measured) ABG Methemoglobin Jose Test ABG Potassium A-a O2 Difference Respiratory Index Hgb O2 Saturation Glucose Lactate Vent Mode FiO2 Tidal Volume PEEP Inspiratory BiPAP Expiratory BiPAP Crit Value Called To Crit Value Called By Crit Value Read Back Blood Gas Notified Time Sodium Potassium Chloride Carbon Dioxide Anion Gap BUN Creatinine Est GFR ( Amer) Est GFR (Non-Af Amer) POC Glucose (mg/dL) 357 H Random Glucose Calcium Phosphorus Magnesium Total Bilirubin AST ALT Alkaline Phosphatase Ammonia Total Protein Albumin Globulin Albumin/Globulin Ratio Arterial Blood Potassium Attending/Attestation - Attestation I have personally seen and examined this patient.: Yes I have fully participated in the care of the patient.: Yes I have reviewed all pertinent clinical information: Yes Notes (Text): 12/04/16 18:13 Patient seen and examined in the intensive care unit. Case discussed with staff in the morning rounds. Patient intubated for respiratory distress and severe metabolic acidosis Continue treatment for CHF Worsening of renal function noted Seen by infectious disease for MRSA in the blood and started on Cubicin Continue ventilatory support and wean as tolerated. Pressors for hypotension
[2016-12-04 08:20] LABS: METAMYELOCYTE 1 % (0-0); NEUTROPHIL 68 % (50-75); TOTAL CELLS COUNTED 100
[2016-12-04 08:22] LABS: LARGE PLATELETS PRESENT
[2016-12-04] MEDS ORDERED: Vancomycin 1 gm/NS 200 ml 1 GM/200 ML BAG IVPB STA (09:14)
[2016-12-04 09:58] LABS: ATERIAL BLOOD GAS PEEP 6; DRAW SITE L/F
[2016-12-04] MEDS: MethylPREDNISolone 40 mg Vial IVP SCH ×2 (10:18→21:50)
[2016-12-04] MEDS: (Novolin R) Insulin Human Regular 100 units/ml vial SC SCH ×3 (10:21→18:22)
[2016-12-04] MEDS: Propofol 10 mg/ml 1,000 MG/100 ML VIAL IV PRN ×2 (10:22→17:23)
--- NOTE | 2016-12-04 10:34 | RAD ---
Chest x-ray single frontal view History: Status post intubation. Comparison: 12/03/2016 Findings: Endotracheal tube extending into the mid thoracic trachea. NG tube extending into the stomach. Other lines and tubes in stable position. Biapical pleural thickening with upper lobe granulomatous changes. Hyperinflation suggestive for COPD and or emphysematous changes. Moderate venous congestion. Right infrahilar consolidation. Scattered nodular densities throughout both lungs. Small right pleural effusion. Bilateral hilar prominence. Degenerative changes in the spine and shoulders. Impression: Endotracheal tube extending into the mid thoracic trachea. NG tube extending into the stomach. Other lines and tubes in stable position. Biapical pleural thickening with upper lobe granulomatous changes. Hyperinflation suggestive for COPD and or emphysematous changes. Moderate venous congestion. Right infrahilar consolidation. Scattered nodular densities throughout both lungs. Small right pleural effusion. Bilateral hilar prominence. Degenerative changes in the spine and shoulders.
--- NOTE | 2016-12-04 11:03 | CP.PCM.PN ---
<Cas Carrion S - Last Filed: 12/04/16 16:01> Subjective - Date & Time of Evaluation Date of Evaluation: 12/04/16 Time of Evaluation: 10:57 - Subjective Subjective: PGY2 Progress Note- Cardiology- Dr. Apple Patient seen and examined at bedside morning. Pt has had clinical decline since yesterday. He is now intubated and does not respond to commands/answer questions. ICU team has discussed the poor px with the family and family is insisting on full measures. Unable to complete ROS given clinical status. Objective - Vital Signs/Intake and Output Vital Signs (last 24 hours): Temp Pulse Resp BP Pulse Ox 99.8 F H 84 25 H 121/62 100 12/04/16 04:00 12/04/16 08:00 12/04/16 08:00 12/04/16 10:17 12/04/16 08:00 Intake and Output: 12/04/16 12/04/16 06:59 18:59 Intake Total 458.4 26.4 Output Total 445 30 Balance 13.4 -3.6 - Medications Medications: Current Medications Albuterol/Ipratropium (Duoneb 3 Mg/0.5 Mg (3 Ml) Ud) 3 ml INH RQ6 [facility] Last Admin: 12/04/16 07:43 Dose: 3 ml Aspirin (Aspirin Supp) 300 mg WA DAILY [facility] Last Admin: 12/04/16 10:38 Dose: 300 mg Famotidine (Pepcid) 20 mg IVP DAILY [facility] Last Admin: 12/04/16 10:18 Dose: 20 mg Furosemide (Lasix) 40 mg IVP DAILY [facility] Last Admin: 12/04/16 10:17 Dose: 40 mg Ceftriaxone Sodium (Rocephin Iv 1 Gm Duplex) 50 mls @ 100 mls/hr IVPB Q24H [facility] Last Admin: 12/04/16 03:29 Dose: 100 mls/hr Heparin Sodium/Sodium Chloride (Heparin 12447 Units/250ml 1/2 Normal Saline) 25 ,000 units in 250 mls @ 7.947 mls/hr IV .Q24H PRN; Protocol; 12 UNITS/KG/HR PRN Reason: PROTOCOL Last Admin: 12/04/16 06:51 Dose: 20 units/kg/hr, 13.245 mls/hr Propofol (Diprivan) 1,000 mg in 100 mls @ 2.01 mls/hr IV .Q24H PRN; Protocol; 5 MCG/KG/MIN PRN Reason: TITRATE PER MD ORDER Last Admin: 12/04/16 10:22 Dose: 5 mcg/kg/min, 2.01 mls/hr Insulin Human Regular (Novolin R) 0 unit SC ACHS [facility] PRN Reason: Protocol Last Admin: 12/04/16 10:21 Dose: 10 unit Methylprednisolone (Solu-Medrol) 20 mg IVP Q12 [facility] Last Admin: 12/04/16 10:18 Dose: 20 mg Metoprolol Tartrate (Lopressor) 2.5 mg IVP Q8 [facility] Last Admin: 12/04/16 06:28 Dose: 2.5 mg Nicotine (Nicoderm Cq) 1 patch TD DAILY [facility] Last Admin: 12/04/16 10:19 Dose: 1 patch Nitroglycerin (Nitro-Bid 2% Oint) 1 ea TOP Q6 [facility] Last Admin: 12/04/16 07:00 Dose: Not Given - Labs Labs: 12/04/16 06:26 12/04/16 06:26 PT 13.7 SECONDS (9.7-12.2) H 12/01/16 02:35 INR 1.2 12/01/16 02:35 APTT 53 SECONDS (21-34) H 12/04/16 06:26 - Constitutional Appears: Other (does not respond to commands, stimulus, painful stimulus. ) - Eye Exam Eye Exam: Normal appearance - Respiratory Exam Additional comments: intubated on vent - Cardiovascular Exam Cardiovascular Exam: Irregular Rhythm, +S1, +S2 - GI/Abdominal Exam GI & Abdominal Exam: Soft - Extremities Exam Extremities Exam: absent: Pedal Edema - Neurological Exam Additional comments: as per subjective Assessment and Plan - Assessment and Plan (Free Text) Assessment: 71 y/o male w/ hx of myelodysplastic syndrome, COPD, HTN, CAD, and CHF presenting with NSTEMI; acutely worsening clinical status and now intubated Plan: NSTEMI This patient has been seen and evaluated by Dr. Snyder for Cath. Pt is not a candidate for Cath; poor prognosis. Continue IV Heparin drip ASA 300mg daily Lasix 40mg IV daily Metoprolol 2.5mg IV q8hrs We will continue to follow. No intervention at this time given patient's clinical status. Discussion has taken place with family and ICU team about poor prognosis and they would like to proceed with all efforts at this time. Continue to have conversation with family and discussion about goals of care. Case discussed with Dr. Apple <Santy Apple - Last Filed: 01/06/17 17:42> Objective - Vital Signs/Intake and Output Vital Signs (last 24 hours): Temp Pulse Resp BP Pulse Ox 98 F 58 L 26 H 62/29 L 68 L 12/07/16 08:00 12/08/16 11:37 12/08/16 11:37 12/08/16 11:37 12/07/16 10:03 - Labs Labs: 12/07/16 05:59 12/07/16 05:59 PT 13.7 SECONDS (9.7-12.2) H 12/01/16 02:35 INR 1.2 12/01/16 02:35 APTT 55 SECONDS (21-34) H 12/07/16 05:59 Attending/Attestation - Attestation I have personally seen and examined this patient.: Yes I have fully participated in the care of the patient.: Yes I have reviewed all pertinent clinical information, including history, physical exam and plan: Yes Notes (Text): 01/06/17 17:42 poor prognosis intubated not responding
--- NOTE | 2016-12-04 15:40 | CP.PCM.CON ---
Past Patient History - Infectious Disease Hx of Infectious Diseases: None - Tetanus Immunizations Tetanus Immunization: Unknown - Past Medical History & Family History Past Medical History?: No - Past Social History Smoking Status: Heavy Smoker > 10 Cigarettes Daily - CARDIAC Hx Hypercholesterolemia: Yes Hx Hypertension: Yes - PULMONARY Hx Respiratory Disorders: No - NEUROLOGICAL Hx Paralysis: No - HEENT Hx HEENT Problems: No - RENAL Hx Chronic Kidney Disease: Yes Hx Kidney Stones: Yes - ENDOCRINE/METABOLIC Hx Endocrine Disorders: Yes Hx Diabetes Mellitus Type 2: Yes - HEMATOLOGICAL/ONCOLOGICAL Hx Anemia: Yes - INTEGUMENTARY Hx Dermatological Problems: Yes Hx Cellulitis: Yes - MUSCULOSKELETAL/RHEUMATOLOGICAL Hx Musculoskeletal Disorders: Yes Hx Falls: Yes - GASTROINTESTINAL Hx Gastrointestinal Disorders: No - GENITOURINARY/GYNECOLOGICAL Hx Genitourinary Disorders: No - PSYCHIATRIC Hx Substance Use: No - SURGICAL HISTORY Hx Coronary Stent: Yes - ANESTHESIA Hx Anesthesia: Yes Meds Allergies/Adverse Reactions: Allergies Allergy/AdvReac Type Severity Reaction Status Date / Time No Known Allergies Allergy Verified 09/16/16 20:22 - Medications Medications: Current Medications Albuterol/Ipratropium (Duoneb 3 Mg/0.5 Mg (3 Ml) Ud) 3 ml INH RQ6 [facility] Last Admin: 12/04/16 13:56 Dose: 3 ml Aspirin (Aspirin Supp) 300 mg [place] DAILY [facility] Last Admin: 12/04/16 10:38 Dose: 300 mg Famotidine (Pepcid) 20 mg IVP DAILY [facility] Last Admin: 12/04/16 10:18 Dose: 20 mg Ceftriaxone Sodium (Rocephin Iv 1 Gm Duplex) 50 mls @ 100 mls/hr IVPB Q24H [facility] Last Admin: 12/04/16 03:29 Dose: 100 mls/hr Heparin Sodium/Sodium Chloride (Heparin 45580 Units/250ml 1/2 Normal Saline) 25 ,000 units in 250 mls @ 7.947 mls/hr IV .Q24H PRN; Protocol; 12 UNITS/KG/HR PRN Reason: PROTOCOL Last Admin: 12/04/16 06:51 Dose: 20 units/kg/hr, 13.245 mls/hr Propofol (Diprivan) 1,000 mg in 100 mls @ 2.01 mls/hr IV .Q24H PRN; Protocol; 5 MCG/KG/MIN PRN Reason: TITRATE PER MD ORDER Last Titration: 12/04/16 11:00 Dose: 30 mcg/kg/min, 12.06 mls/hr Diltiazem HCl 125 mg/ Sodium (Chloride) 125 mls @ 5 mls/hr IV .Q24H [facility]; 5 MG/ HR PRN Reason: Protocol Last Admin: 12/04/16 13:16 Dose: 5 mg/hr, 5 mls/hr Insulin Human Regular (Novolin R) 0 unit SC ACHS [facility] PRN Reason: Protocol Last Admin: 12/04/16 13:15 Dose: 10 unit Methylprednisolone (Solu-Medrol) 20 mg IVP Q12 [facility] Last Admin: 12/04/16 10:18 Dose: 20 mg Metoprolol Tartrate (Lopressor) 2.5 mg IVP Q8 [facility] Last Admin: 12/04/16 06:28 Dose: 2.5 mg Nicotine (Nicoderm Cq) 1 patch TD DAILY [facility] Last Admin: 12/04/16 10:19 Dose: 1 patch Nitroglycerin (Nitro-Bid 2% Oint) 1 ea TOP Q6 [facility] Last Admin: 12/04/16 13:20 Dose: Not Given Results - Vital Signs Recent Vital Signs: Last Vital Signs Temp 98.5 F 12/04/16 14:00 Pulse 75 12/04/16 15:03 Resp 23 12/04/16 15:03 BP 90/42 L 12/04/16 15:03 Pulse Ox 99 12/04/16 15:03 - Labs Result Diagrams: 12/04/16 06:26 12/04/16 06:26 Labs: Laboratory Results - last 24 hr 12/03/16 12/03/16 12/03/16 16:09 21:13 22:48 WBC RBC Hgb Hct MCV MCH MCHC RDW Plt Count MPV Neut % (Auto) Lymph % (Auto) [place] % (Auto) Eos % (Auto) Baso % (Auto) Neut # Lymph # [place] # Eos # Baso # Neutrophils % (Manual) Band Neutrophils % Lymphocytes % (Manual) Monocytes % (Manual) Metamyelocytes % Platelet Estimate Large Platelets Hypochromasia (manual) Anisocytosis (manual) APTT Puncture Site pCO2 pO2 HCO3 ABG pH ABG Total CO2 ABG O2 Saturation ABG Base Excess ABG Hemoglobin ABG Carboxyhemoglobin POC ABG HHb (Measured) ABG Methemoglobin Jose Test ABG Potassium A-a O2 Difference Respiratory Index Hgb O2 Saturation Glucose Lactate Vent Mode FiO2 Tidal Volume PEEP Inspiratory BiPAP Expiratory BiPAP Crit Value Called To Crit Value Called By Crit Value Read Back Blood Gas Notified Time Sodium Potassium Chloride Carbon Dioxide Anion Gap BUN Creatinine Est GFR ( Amer) Est GFR (Non-Af Amer) POC Glucose (mg/dL) 260 H 284 H Random Glucose Calcium Phosphorus Magnesium Total Bilirubin AST ALT Alkaline Phosphatase Ammonia 10 Total Protein Albumin Globulin Albumin/Globulin Ratio Arterial Blood Potassium 12/04/16 12/04/16 12/04/16 05:33 06:26 06:26 WBC 2.6 L RBC 3.19 L Hgb 8.4 L Hct 26.9 L MCV 84.3 D MCH 26.3 L MCHC 31.1 L RDW 25.7 H Plt Count 288 MPV 10.1 Neut % (Auto) 81.4 H Lymph % (Auto) 8.5 L [place] % (Auto) 9.8 Eos % (Auto) 0.1 Baso % (Auto) 0.2 Neut # 2.1 Lymph # 0.2 L [place] # 0.3 Eos # 0.0 Baso # 0.0 Neutrophils % (Manual) 68 Band Neutrophils % 9 H Lymphocytes % (Manual) 10 L Monocytes % (Manual) 12 H Metamyelocytes % 1 H Platelet Estimate Normal Large Platelets Present Hypochromasia (manual) Slight Anisocytosis (manual) Moderate APTT 53 H Puncture Site Lb pCO2 17 L* pO2 157 H HCO3 12.0 L ABG pH 7.29 L ABG Total CO2 8.7 L ABG O2 Saturation 99.5 H ABG Base Excess -16.6 L ABG Hemoglobin 8.2 L ABG Carboxyhemoglobin 1.9 H POC ABG HHb (Measured) 0.5 ABG Methemoglobin 1.4 Jose Test Na ABG Potassium A-a O2 Difference 107.0 Respiratory Index 0.7 Hgb O2 Saturation 96.2 Glucose Lactate Vent Mode Bipap FiO2 40.0 Tidal Volume PEEP Inspiratory BiPAP 14 Expiratory BiPAP 7 Crit Value Called To Prema rn Crit Value Called By Aurelia field contact person Crit Value Read Back Y Blood Gas Notified Time 600 Sodium Potassium Chloride Carbon Dioxide Anion Gap BUN Creatinine Est GFR ( Amer) Est GFR (Non-Af Amer) POC Glucose (mg/dL) Random Glucose Calcium Phosphorus Magnesium Total Bilirubin AST ALT Alkaline Phosphatase Ammonia Total Protein Albumin Globulin Albumin/Globulin Ratio Arterial Blood Potassium 12/04/16 12/04/16 12/04/16 06:26 07:20 09:45 WBC RBC Hgb Hct MCV MCH MCHC RDW Plt Count MPV Neut % (Auto) Lymph % (Auto) [place] % (Auto) Eos % (Auto) Baso % (Auto) Neut # Lymph # [place] # Eos # Baso # Neutrophils % (Manual) Band Neutrophils % Lymphocytes % (Manual) Monocytes % (Manual) Metamyelocytes % Platelet Estimate Large Platelets Hypochromasia (manual) Anisocytosis (manual) APTT Puncture Site L/f pCO2 22 L pO2 182 H HCO3 12.0 L ABG pH 7.22 L ABG Total CO2 9.7 L ABG O2 Saturation 99.6 H ABG Base Excess -16.7 L ABG Hemoglobin ABG Carboxyhemoglobin POC ABG HHb (Measured) ABG Methemoglobin Jose Test Na ABG Potassium 4.2 A-a O2 Difference 504.0 Respiratory Index 2.8 Hgb O2 Saturation Glucose 387 H Lactate 1.6 Vent Mode FiO2 100.0 Tidal Volume 500 PEEP 6 Inspiratory BiPAP Expiratory BiPAP Crit Value Called To Dr powers Crit Value Called By Ori arevalo customer service driver Crit Value Read Back Y Blood Gas Notified Time 950 Sodium 143 143.0 Potassium 4.7 Chloride 104 111.0 H Carbon Dioxide 9 L* D Anion Gap 35 H BUN 74 H Creatinine 2.6 H Est GFR ( Amer) 30 Est GFR (Non-Af Amer) 24 POC Glucose (mg/dL) 430 H* Random Glucose 419 H* D Calcium 8.3 L Phosphorus 6.0 H Magnesium 2.7 H Total Bilirubin 0.9 AST 50 ALT 134 H D Alkaline Phosphatase 135 H Ammonia Total Protein 6.7 Albumin 3.1 L Globulin 3.6 Albumin/Globulin Ratio 0.9 L Arterial Blood Potassium 4.2 12/04/16 11:25 WBC RBC Hgb Hct MCV MCH MCHC RDW Plt Count MPV Neut % (Auto) Lymph % (Auto) [place] % (Auto) Eos % (Auto) Baso % (Auto) Neut # Lymph # [place] # Eos # Baso # Neutrophils % (Manual) Band Neutrophils % Lymphocytes % (Manual) Monocytes % (Manual) Metamyelocytes % Platelet Estimate Large Platelets Hypochromasia (manual) Anisocytosis (manual) APTT Puncture Site pCO2 pO2 HCO3 ABG pH ABG Total CO2 ABG O2 Saturation ABG Base Excess ABG Hemoglobin ABG Carboxyhemoglobin POC ABG HHb (Measured) ABG Methemoglobin Jose Test ABG Potassium A-a O2 Difference Respiratory Index Hgb O2 Saturation Glucose Lactate Vent Mode FiO2 Tidal Volume PEEP Inspiratory BiPAP Expiratory BiPAP Crit Value Called To Crit Value Called By Crit Value Read Back Blood Gas Notified Time Sodium Potassium Chloride Carbon Dioxide Anion Gap BUN Creatinine Est GFR ( Amer) Est GFR (Non-Af Amer) POC Glucose (mg/dL) 445 H* Random Glucose Calcium Phosphorus Magnesium Total Bilirubin AST ALT Alkaline Phosphatase Ammonia Total Protein Albumin Globulin Albumin/Globulin Ratio Arterial Blood Potassium
--- NOTE | 2016-12-04 16:27 | CP.PCM.PCO ---
Physician Communication Note - Physician Communication Note Physician Communication Note: Family meting for tomorrow with daughter Jo
--- NOTE | 2016-12-04 17:47 | CP.PCM.PN ---
Subjective - Date & Time of Evaluation Date of Evaluation: 12/04/16 Time of Evaluation: 14:20 - Subjective Subjective: clinically same iv rx in progress Objective - Vital Signs/Intake and Output Vital Signs (last 24 hours): Temp Pulse Resp BP Pulse Ox 98.5 F 72 17 90/50 L 98 12/04/16 14:00 12/04/16 17:03 12/04/16 17:03 12/04/16 17:03 12/04/16 17:03 Intake and Output: 12/04/16 12/04/16 06:59 18:59 Intake Total 458.4 528.5 Output Total 445 415 Balance 13.4 113.5 - Medications Medications: Current Medications Albuterol/Ipratropium (Duoneb 3 Mg/0.5 Mg (3 Ml) Ud) 3 ml INH RQ6 [facility] Last Admin: 12/04/16 13:56 Dose: 3 ml Aspirin (Aspirin Supp) 300 mg [place] DAILY [facility] Last Admin: 12/04/16 10:38 Dose: 300 mg Famotidine (Pepcid) 20 mg IVP DAILY [facility] Last Admin: 12/04/16 10:18 Dose: 20 mg Heparin Sodium/Sodium Chloride (Heparin 84053 Units/250ml 1/2 Normal Saline) 25 ,000 units in 250 mls @ 7.947 mls/hr IV .Q24H PRN; Protocol; 12 UNITS/KG/HR PRN Reason: PROTOCOL Last Admin: 12/04/16 06:51 Dose: 20 units/kg/hr, 13.245 mls/hr Propofol (Diprivan) 1,000 mg in 100 mls @ 2.01 mls/hr IV .Q24H PRN; Protocol; 5 MCG/KG/MIN PRN Reason: TITRATE PER MD ORDER Last Admin: 12/04/16 17:23 Dose: 30 mcg/kg/min, 12.06 mls/hr Diltiazem HCl 125 mg/ Sodium (Chloride) 125 mls @ 5 mls/hr IV .Q24H [facility]; 5 MG/ HR PRN Reason: Protocol Last Admin: 12/04/16 13:16 Dose: 5 mg/hr, 5 mls/hr Tigecycline 100 mg/ Sodium (Chloride) 100 mls @ 100 mls/hr IVPB ONCE ONE Stop: 12/04/16 17:59 Last Admin: 12/04/16 17:25 Dose: 100 mls/hr Daptomycin 360 mg/ Sodium (Chloride) 100 mls @ 100 mls/hr IV Q48H [facility] Stop: 12/09/16 18:01 Last Admin: 12/04/16 17:24 Dose: 100 mls/hr Tigecycline 50 mg/ Dextrose 100 mls @ 100 mls/hr IVPB Q12H [facility] Cefepime HCl 1 gm/ Dextrose 50 mls @ 100 mls/hr IVPB Q24H [facility] Insulin Human Regular (Novolin R) 0 unit SC ACHS [facility] PRN Reason: Protocol Last Admin: 12/04/16 13:15 Dose: 10 unit Methylprednisolone (Solu-Medrol) 20 mg IVP Q12 [facility] Last Admin: 12/04/16 10:18 Dose: 20 mg Metoprolol Tartrate (Lopressor) 2.5 mg IVP Q8 [facility] Last Admin: 12/04/16 17:13 Dose: Not Given Nicotine (Nicoderm Cq) 1 patch TD DAILY [facility] Last Admin: 12/04/16 10:19 Dose: 1 patch Nitroglycerin (Nitro-Bid 2% Oint) 1 ea TOP Q6 [facility] Last Admin: 12/04/16 17:41 Dose: Not Given - Labs Labs: 12/04/16 06:26 12/04/16 06:26 PT 13.7 SECONDS (9.7-12.2) H 12/01/16 02:35 INR 1.2 12/01/16 02:35 APTT 53 SECONDS (21-34) H 12/04/16 06:26 - Constitutional Appears: Well - Head Exam Head Exam: ATRAUMATIC, NORMAL INSPECTION, NORMOCEPHALIC - Eye Exam Eye Exam: EOMI, Normal appearance, PERRL Pupil Exam: NORMAL ACCOMODATION, PERRL - ENT Exam ENT Exam: Mucous Membranes Moist, Normal Exam - Neck Exam Neck Exam: Full ROM, Normal Inspection. absent: Lymphadenopathy - Respiratory Exam Respiratory Exam: Decreased Breath Sounds - Cardiovascular Exam Cardiovascular Exam: REGULAR RHYTHM, +S1, +S2 - GI/Abdominal Exam GI & Abdominal Exam: Soft, Diminished Bowel Sounds - Rectal Exam Rectal Exam: Deferred - Neurological Exam Neurological Exam: Alert Assessment and Plan (1) Acute respiratory failure Status: Acute (2) Anemia Status: Acute (3) Bacteremia due to methicillin resistant Staphylococcus aureus Status: Acute (4) Chest pain Status: Acute (5) Coagulopathy Status: Acute (6) Diabetes mellitus with ulcer of ankle Status: Acute (7) Diabetes mellitus, new onset Status: Acute (8) Dyspnea Status: Acute (9) Gastrointestinal hemorrhage Status: Acute (10) Infected ulcer of skin Status: Acute (11) MDS (myelodysplastic syndrome) Status: Acute (12) Neutropenia Status: Acute (13) Non-STEMI (non-ST elevated myocardial infarction) Status: Acute (14) Non-healing ulcer of foot Status: Acute (15) PAD (peripheral artery disease) Status: Acute (16) Pancytopenia Status: Acute (17) Pneumonia Status: Acute (18) Pneumonia Status: Acute (19) Prophylactic measure Status: Acute (20) Sepsis Status: Acute (21) CAD (coronary artery disease) Status: Chronic (22) CHF (congestive heart failure) Status: Chronic (23) Diabetes mellitus Status: Chronic - Assessment and Plan (Free Text) Plan: savana iv abx meds reviewed savana as ordered f/u labs repeat CXR
--- NOTE | 2016-12-04 20:20 | CP.PCM.PN ---
Subjective - Date & Time of Evaluation Date of Evaluation: 12/04/16 Time of Evaluation: 18:30 - Subjective Subjective: Vented Objective - Vital Signs/Intake and Output Vital Signs (last 24 hours): Temp Pulse Resp BP Pulse Ox 97.9 F 78 22 106/61 100 12/04/16 18:00 12/04/16 19:03 12/04/16 19:03 12/04/16 19:03 12/04/16 19:03 Intake and Output: 12/04/16 12/05/16 18:59 06:59 Intake Total 653.6 125.1 Output Total 525 30 Balance 128.6 95.1 - Medications Medications: Current Medications Albuterol/Ipratropium (Duoneb 3 Mg/0.5 Mg (3 Ml) Ud) 3 ml INH RQ6 [facility] Last Admin: 12/04/16 20:01 Dose: 3 ml Aspirin (Aspirin Supp) 300 mg [place] DAILY [facility] Last Admin: 12/04/16 10:38 Dose: 300 mg Famotidine (Pepcid) 20 mg IVP DAILY [facility] Last Admin: 12/04/16 10:18 Dose: 20 mg Heparin Sodium/Sodium Chloride (Heparin 26648 Units/250ml 1/2 Normal Saline) 25 ,000 units in 250 mls @ 7.947 mls/hr IV .Q24H PRN; Protocol; 12 UNITS/KG/HR PRN Reason: PROTOCOL Last Admin: 12/04/16 06:51 Dose: 20 units/kg/hr, 13.245 mls/hr Propofol (Diprivan) 1,000 mg in 100 mls @ 2.01 mls/hr IV .Q24H PRN; Protocol; 5 MCG/KG/MIN PRN Reason: TITRATE PER MD ORDER Last Admin: 12/04/16 17:23 Dose: 30 mcg/kg/min, 12.06 mls/hr Diltiazem HCl 125 mg/ Sodium (Chloride) 125 mls @ 5 mls/hr IV .Q24H [facility]; 5 MG/ HR PRN Reason: Protocol Last Admin: 12/04/16 13:16 Dose: 5 mg/hr, 5 mls/hr Daptomycin 360 mg/ Sodium (Chloride) 100 mls @ 100 mls/hr IV Q48H [facility] Stop: 12/09/16 18:01 Last Admin: 12/04/16 17:24 Dose: 100 mls/hr Tigecycline 50 mg/ Dextrose 100 mls @ 100 mls/hr IVPB Q12H [facility] Cefepime HCl 1 gm/ Dextrose 50 mls @ 100 mls/hr IVPB Q24H [facility] Last Admin: 12/04/16 20:15 Dose: 100 mls/hr Insulin Human Regular (Novolin R) 0 unit SC Q6H [facility] PRN Reason: Protocol Methylprednisolone (Solu-Medrol) 20 mg IVP Q12 [facility] Last Admin: 12/04/16 10:18 Dose: 20 mg Metoprolol Tartrate (Lopressor) 2.5 mg IVP Q8 [facility] Last Admin: 12/04/16 17:13 Dose: Not Given Nicotine (Nicoderm Cq) 1 patch TD DAILY [facility] Last Admin: 12/04/16 10:19 Dose: 1 patch Nitroglycerin (Nitro-Bid 2% Oint) 1 ea TOP Q6 [facility] Last Admin: 12/04/16 17:41 Dose: Not Given - Labs Labs: 12/04/16 06:26 12/04/16 06:26 PT 13.7 SECONDS (9.7-12.2) H 12/01/16 02:35 INR 1.2 12/01/16 02:35 APTT 53 SECONDS (21-34) H 12/04/16 06:26 - Head Exam Head Exam: ATRAUMATIC - Eye Exam Eye Exam: Normal appearance - ENT Exam ENT Exam: Mucous Membranes Dry - Respiratory Exam Respiratory Exam: NORMAL BREATHING PATTERN - Cardiovascular Exam Cardiovascular Exam: +S1, +S2 - GI/Abdominal Exam GI & Abdominal Exam: Normal Bowel Sounds Assessment and Plan (1) Anemia Assessment & Plan: secondary to MDS, chronic disease H/H stable Status: Acute (2) Coagulopathy Assessment & Plan: nutritional Status: Acute (3) MDS (myelodysplastic syndrome) Assessment & Plan: on outpatient decitabine Status: Acute
--- NOTE | 2016-12-04 21:38 | CP.PCM.CON ---
History of Present Illness - History of Present Illness History of Present Illness: 71yr old male with history of DM,COPD,family history non contributoryCADs/p stent,ND ,PVD ,MDS ,Pancytopenia is admitted with shortness of breath and is on the ventilator with increased troponin and also has positive blood culture hence ID consult was called. He was admitted with a INdwelling Picc line and that could be source of MRSA. However he is admitted with Respiratory failure. past history as above social h/o positive for smoking and alcohol family h/o non contributory Review of Systems - Review of Systems All systems: reviewed and no additional remarkable complaints except Review of Systems: patient is on respirator unable to get any information from patient Past Patient History - Infectious Disease Hx of Infectious Diseases: None - Tetanus Immunizations Tetanus Immunization: Unknown - Past Medical History & Family History Past Medical History?: No - Past Social History Smoking Status: Heavy Smoker > 10 Cigarettes Daily - CARDIAC Hx Hypercholesterolemia: Yes Hx Hypertension: Yes - PULMONARY Hx Respiratory Disorders: No - NEUROLOGICAL Hx Paralysis: No - HEENT Hx HEENT Problems: No - RENAL Hx Chronic Kidney Disease: Yes Hx Kidney Stones: Yes - ENDOCRINE/METABOLIC Hx Endocrine Disorders: Yes Hx Diabetes Mellitus Type 2: Yes - HEMATOLOGICAL/ONCOLOGICAL Hx Anemia: Yes - INTEGUMENTARY Hx Dermatological Problems: Yes Hx Cellulitis: Yes - MUSCULOSKELETAL/RHEUMATOLOGICAL Hx Musculoskeletal Disorders: Yes Hx Falls: Yes - GASTROINTESTINAL Hx Gastrointestinal Disorders: No - GENITOURINARY/GYNECOLOGICAL Hx Genitourinary Disorders: No - PSYCHIATRIC Hx Substance Use: No - SURGICAL HISTORY Hx Coronary Stent: Yes - ANESTHESIA Hx Anesthesia: Yes Meds Allergies/Adverse Reactions: Allergies Allergy/AdvReac Type Severity Reaction Status Date / Time No Known Allergies Allergy Verified 09/16/16 20:22 - Medications Medications: Current Medications Albuterol/Ipratropium (Duoneb 3 Mg/0.5 Mg (3 Ml) Ud) 3 ml INH RQ6 [facility] Last Admin: 12/04/16 20:01 Dose: 3 ml Aspirin (Aspirin Supp) 300 mg [place] DAILY [facility] Last Admin: 12/04/16 10:38 Dose: 300 mg Famotidine (Pepcid) 20 mg IVP DAILY [facility] Last Admin: 12/04/16 10:18 Dose: 20 mg Heparin Sodium/Sodium Chloride (Heparin 22342 Units/250ml 1/2 Normal Saline) 25 ,000 units in 250 mls @ 7.947 mls/hr IV .Q24H PRN; Protocol; 12 UNITS/KG/HR PRN Reason: PROTOCOL Last Admin: 12/04/16 06:51 Dose: 20 units/kg/hr, 13.245 mls/hr Propofol (Diprivan) 1,000 mg in 100 mls @ 2.01 mls/hr IV .Q24H PRN; Protocol; 5 MCG/KG/MIN PRN Reason: TITRATE PER MD ORDER Last Admin: 12/04/16 17:23 Dose: 30 mcg/kg/min, 12.06 mls/hr Diltiazem HCl 125 mg/ Sodium (Chloride) 125 mls @ 5 mls/hr IV .Q24H [facility]; 5 MG/ HR PRN Reason: Protocol Last Admin: 12/04/16 13:16 Dose: 5 mg/hr, 5 mls/hr Daptomycin 360 mg/ Sodium (Chloride) 100 mls @ 100 mls/hr IV Q48H [facility] Stop: 12/09/16 18:01 Last Admin: 12/04/16 17:24 Dose: 100 mls/hr Tigecycline 50 mg/ Dextrose 100 mls @ 100 mls/hr IVPB Q12H [facility] Cefepime HCl 1 gm/ Dextrose 50 mls @ 100 mls/hr IVPB Q24H [facility] Last Admin: 12/04/16 20:15 Dose: 100 mls/hr Insulin Human Regular (Novolin R) 0 unit SC Q6H [facility] PRN Reason: Protocol Methylprednisolone (Solu-Medrol) 20 mg IVP Q12 [facility] Last Admin: 12/04/16 10:18 Dose: 20 mg Metoprolol Tartrate (Lopressor) 2.5 mg IVP Q8 [facility] Last Admin: 12/04/16 17:13 Dose: Not Given Nicotine (Nicoderm Cq) 1 patch TD DAILY [facility] Last Admin: 12/04/16 10:19 Dose: 1 patch Nitroglycerin (Nitro-Bid 2% Oint) 1 ea TOP Q6 [facility] Last Admin: 12/04/16 17:41 Dose: Not Given Physical Exam - Constitutional Appears: Toxic Additional comments: sedated on ventilator - Head Exam Head Exam: ATRAUMATIC, NORMOCEPHALIC - Eye Exam Eye Exam: Normal appearance Additional comments: closed eyes - Neck Exam Neck exam: Positive for: Normal Inspection - Respiratory Exam Respiratory Exam: Decreased Breath Sounds. absent: Accessory Muscle Use, Chest Wall Tenderness, Clear to Auscultation Bilateral, Prolonged Expiratory Phase, Rales, Rhonchi, Wheezes, Respiratory Distress, Stridor, NORMAL BREATHING PATTERN - Cardiovascular Exam Cardiovascular Exam: REGULAR RHYTHM. absent: Bradycardia, Tachycardia, Clicks, Diastolic murmur, Gallop, Irregular Rhythm, JVD, RRR, Rubs, +S1, +S2, +S4, Systolic Murmur - GI/Abdominal Exam GI & Abdominal Exam: Normal Bowel Sounds, Soft. absent: Bruit, Diminished Bowel Sounds, Distended, Firm, Guarding, Hernia, Hyperactive Bowel Sounds, Hypoactive Bowel Sounds, Mass, Organomegaly, Pulsatile Mass, Rebound, Rigid, Tenderness - Extremities Exam Additional comments: right medial malleollus foul smelling ulcer present possible venous Results - Vital Signs Recent Vital Signs: Last Vital Signs Temp 97.9 F 12/04/16 18:00 Pulse 78 12/04/16 19:03 Resp 22 12/04/16 19:03 BP 106/61 12/04/16 19:03 Pulse Ox 100 12/04/16 19:03 - Labs Result Diagrams: 12/04/16 06:26 12/04/16 06:26 Labs: Laboratory Results - last 24 hr 12/03/16 12/04/16 12/04/16 22:48 05:33 06:26 WBC RBC Hgb Hct MCV MCH MCHC RDW Plt Count MPV Neut % (Auto) Lymph % (Auto) [place] % (Auto) Eos % (Auto) Baso % (Auto) Neut # Lymph # [place] # Eos # Baso # Neutrophils % (Manual) Band Neutrophils % Lymphocytes % (Manual) Monocytes % (Manual) Metamyelocytes % Platelet Estimate Large Platelets Hypochromasia (manual) Anisocytosis (manual) APTT 53 H Puncture Site Lb pCO2 17 L* pO2 157 H HCO3 12.0 L ABG pH 7.29 L ABG Total CO2 8.7 L ABG O2 Saturation 99.5 H ABG Base Excess -16.6 L ABG Hemoglobin 8.2 L ABG Carboxyhemoglobin 1.9 H POC ABG HHb (Measured) 0.5 ABG Methemoglobin 1.4 Jose Test Na ABG Potassium A-a O2 Difference 107.0 Respiratory Index 0.7 Hgb O2 Saturation 96.2 Glucose Lactate Vent Mode Bipap FiO2 40.0 Tidal Volume PEEP Inspiratory BiPAP 14 Expiratory BiPAP 7 Crit Value Called To Prema sanders Crit Value Called By [place] airport control operator Crit Value Read Back Y Blood Gas Notified Time 600 Sodium Potassium Chloride Carbon Dioxide Anion Gap BUN Creatinine Est GFR ( Amer) Est GFR (Non-Af Amer) POC Glucose (mg/dL) Random Glucose Calcium Phosphorus Magnesium Total Bilirubin AST ALT Alkaline Phosphatase Ammonia 10 Total Protein Albumin Globulin Albumin/Globulin Ratio Arterial Blood Potassium 12/04/16 12/04/16 12/04/16 06:26 06:26 07:20 WBC 2.6 L RBC 3.19 L Hgb 8.4 L Hct 26.9 L MCV 84.3 D MCH 26.3 L MCHC 31.1 L RDW 25.7 H Plt Count 288 MPV 10.1 Neut % (Auto) 81.4 H Lymph % (Auto) 8.5 L [place] % (Auto) 9.8 Eos % (Auto) 0.1 Baso % (Auto) 0.2 Neut # 2.1 Lymph # 0.2 L [place] # 0.3 Eos # 0.0 Baso # 0.0 Neutrophils % (Manual) 68 Band Neutrophils % 9 H Lymphocytes % (Manual) 10 L Monocytes % (Manual) 12 H Metamyelocytes % 1 H Platelet Estimate Normal Large Platelets Present Hypochromasia (manual) Slight Anisocytosis (manual) Moderate APTT Puncture Site pCO2 pO2 HCO3 ABG pH ABG Total CO2 ABG O2 Saturation ABG Base Excess ABG Hemoglobin ABG Carboxyhemoglobin POC ABG HHb (Measured) ABG Methemoglobin Jose Test ABG Potassium A-a O2 Difference Respiratory Index Hgb O2 Saturation Glucose Lactate Vent Mode FiO2 Tidal Volume PEEP Inspiratory BiPAP Expiratory BiPAP Crit Value Called To Crit Value Called By Crit Value Read Back Blood Gas Notified Time Sodium 143 Potassium 4.7 Chloride 104 Carbon Dioxide 9 L* D Anion Gap 35 H BUN 74 H Creatinine 2.6 H Est GFR ( Amer) 30 Est GFR (Non-Af Amer) 24 POC Glucose (mg/dL) 430 H* Random Glucose 419 H* D Calcium 8.3 L Phosphorus 6.0 H Magnesium 2.7 H Total Bilirubin 0.9 AST 50 ALT 134 H D Alkaline Phosphatase 135 H Ammonia Total Protein 6.7 Albumin 3.1 L Globulin 3.6 Albumin/Globulin Ratio 0.9 L Arterial Blood Potassium 12/04/16 12/04/16 12/04/16 09:45 11:25 17:58 WBC RBC Hgb Hct MCV MCH MCHC RDW Plt Count MPV Neut % (Auto) Lymph % (Auto) [place] % (Auto) Eos % (Auto) Baso % (Auto) Neut # Lymph # [place] # Eos # Baso # Neutrophils % (Manual) Band Neutrophils % Lymphocytes % (Manual) Monocytes % (Manual) Metamyelocytes % Platelet Estimate Large Platelets Hypochromasia (manual) Anisocytosis (manual) APTT Puncture Site L/f pCO2 22 L pO2 182 H HCO3 12.0 L ABG pH 7.22 L ABG Total CO2 9.7 L ABG O2 Saturation 99.6 H ABG Base Excess -16.7 L ABG Hemoglobin ABG Carboxyhemoglobin POC ABG HHb (Measured) ABG Methemoglobin Jose Test Na ABG Potassium 4.2 A-a O2 Difference 504.0 Respiratory Index 2.8 Hgb O2 Saturation Glucose 387 H Lactate 1.6 Vent Mode FiO2 100.0 Tidal Volume 500 PEEP 6 Inspiratory BiPAP Expiratory BiPAP Crit Value Called To Dr powers Crit Value Called By Ori arevalo independent producer Crit Value Read Back Y Blood Gas Notified Time 950 Sodium 143.0 Potassium Chloride 111.0 H Carbon Dioxide Anion Gap BUN Creatinine Est GFR ( Amer) Est GFR (Non-Af Amer) POC Glucose (mg/dL) 445 H* 357 H Random Glucose Calcium Phosphorus Magnesium Total Bilirubin AST ALT Alkaline Phosphatase Ammonia Total Protein Albumin Globulin Albumin/Globulin Ratio Arterial Blood Potassium 4.2 Assessment & Plan (1) Coagulopathy Status: Acute (2) Dyspnea Status: Acute (3) MDS (myelodysplastic syndrome) Status: Acute (4) Neutropenia Status: Acute (5) Non-STEMI (non-ST elevated myocardial infarction) Status: Acute (6) Pneumonia Status: Acute (7) Sepsis Status: Acute (8) CHF (congestive heart failure) Status: Chronic (9) Bacteremia due to methicillin resistant Staphylococcus aureus Assessment and Plan: Patient is with Picc line which could be the cause of Staphylococcus aureus bacteremia and also he has respiratory failure and has pneumonia r/o staph pneumonia also has right medial malleolus infected foul smelling ulcer present Status: Acute (10) Non-healing ulcer of foot Status: Acute - Assessment and Plan (Free Text) Assessment: patient started on tygacil to cover MRsa pneumonia and cubicin to cover for bacteremia as he has renal failure and cannot get adequate dose of Vancomycin and also added maxipime to cover for leg wound that is growing gram negative
--- NOTE | 2016-12-04 21:52 | CP.PCM.CON ---
Past Patient History - Infectious Disease Hx of Infectious Diseases: None - Tetanus Immunizations Tetanus Immunization: Unknown - Past Medical History & Family History Past Medical History?: No - Past Social History Smoking Status: Heavy Smoker > 10 Cigarettes Daily - CARDIAC Hx Hypercholesterolemia: Yes Hx Hypertension: Yes - PULMONARY Hx Respiratory Disorders: No - NEUROLOGICAL Hx Paralysis: No - HEENT Hx HEENT Problems: No - RENAL Hx Chronic Kidney Disease: Yes Hx Kidney Stones: Yes - ENDOCRINE/METABOLIC Hx Endocrine Disorders: Yes Hx Diabetes Mellitus Type 2: Yes - HEMATOLOGICAL/ONCOLOGICAL Hx Anemia: Yes - INTEGUMENTARY Hx Dermatological Problems: Yes Hx Cellulitis: Yes - MUSCULOSKELETAL/RHEUMATOLOGICAL Hx Musculoskeletal Disorders: Yes Hx Falls: Yes - GASTROINTESTINAL Hx Gastrointestinal Disorders: No - GENITOURINARY/GYNECOLOGICAL Hx Genitourinary Disorders: No - PSYCHIATRIC Hx Substance Use: No - SURGICAL HISTORY Hx Coronary Stent: Yes - ANESTHESIA Hx Anesthesia: Yes Meds Allergies/Adverse Reactions: Allergies Allergy/AdvReac Type Severity Reaction Status Date / Time No Known Allergies Allergy Verified 09/16/16 20:22 - Medications Medications: Current Medications Albuterol/Ipratropium (Duoneb 3 Mg/0.5 Mg (3 Ml) Ud) 3 ml INH RQ6 [facility] Last Admin: 12/04/16 20:01 Dose: 3 ml Aspirin (Aspirin Supp) 300 mg [place] DAILY [facility] Last Admin: 12/04/16 10:38 Dose: 300 mg Famotidine (Pepcid) 20 mg IVP DAILY [facility] Last Admin: 12/04/16 10:18 Dose: 20 mg Heparin Sodium/Sodium Chloride (Heparin 73379 Units/250ml 1/2 Normal Saline) 25 ,000 units in 250 mls @ 7.947 mls/hr IV .Q24H PRN; Protocol; 12 UNITS/KG/HR PRN Reason: PROTOCOL Last Admin: 12/04/16 06:51 Dose: 20 units/kg/hr, 13.245 mls/hr Propofol (Diprivan) 1,000 mg in 100 mls @ 2.01 mls/hr IV .Q24H PRN; Protocol; 5 MCG/KG/MIN PRN Reason: TITRATE PER MD ORDER Last Admin: 12/04/16 17:23 Dose: 30 mcg/kg/min, 12.06 mls/hr Diltiazem HCl 125 mg/ Sodium (Chloride) 125 mls @ 5 mls/hr IV .Q24H [facility]; 5 MG/ HR PRN Reason: Protocol Last Admin: 12/04/16 13:16 Dose: 5 mg/hr, 5 mls/hr Daptomycin 360 mg/ Sodium (Chloride) 100 mls @ 100 mls/hr IV Q48H [facility] Stop: 12/09/16 18:01 Last Admin: 12/04/16 17:24 Dose: 100 mls/hr Tigecycline 50 mg/ Dextrose 100 mls @ 100 mls/hr IVPB Q12H [facility] Cefepime HCl 1 gm/ Dextrose 50 mls @ 100 mls/hr IVPB Q24H [facility] Last Admin: 12/04/16 20:15 Dose: 100 mls/hr Insulin Human Regular (Novolin R) 0 unit SC Q6H [facility] PRN Reason: Protocol Methylprednisolone (Solu-Medrol) 20 mg IVP Q12 [facility] Last Admin: 12/04/16 21:50 Dose: 20 mg Metoprolol Tartrate (Lopressor) 2.5 mg IVP Q8 [facility] Last Admin: 12/04/16 21:50 Dose: 2.5 mg Nicotine (Nicoderm Cq) 1 patch TD DAILY [facility] Last Admin: 12/04/16 10:19 Dose: 1 patch Nitroglycerin (Nitro-Bid 2% Oint) 1 ea TOP Q6 [facility] Last Admin: 12/04/16 17:41 Dose: Not Given Results - Vital Signs Recent Vital Signs: Last Vital Signs Temp 97.9 F 12/04/16 18:00 Pulse 78 12/04/16 19:03 Resp 22 12/04/16 19:03 BP 106/61 12/04/16 19:03 Pulse Ox 100 12/04/16 19:03 - Labs Result Diagrams: 12/04/16 06:26 12/04/16 06:26 Labs: Laboratory Results - last 24 hr 12/03/16 12/04/16 12/04/16 22:48 05:33 06:26 WBC RBC Hgb Hct MCV MCH MCHC RDW Plt Count MPV Neut % (Auto) Lymph % (Auto) [place] % (Auto) Eos % (Auto) Baso % (Auto) Neut # Lymph # [place] # Eos # Baso # Neutrophils % (Manual) Band Neutrophils % Lymphocytes % (Manual) Monocytes % (Manual) Metamyelocytes % Platelet Estimate Large Platelets Hypochromasia (manual) Anisocytosis (manual) APTT 53 H Puncture Site Lb pCO2 17 L* pO2 157 H HCO3 12.0 L ABG pH 7.29 L ABG Total CO2 8.7 L ABG O2 Saturation 99.5 H ABG Base Excess -16.6 L ABG Hemoglobin 8.2 L ABG Carboxyhemoglobin 1.9 H POC ABG HHb (Measured) 0.5 ABG Methemoglobin 1.4 Jose Test Na ABG Potassium A-a O2 Difference 107.0 Respiratory Index 0.7 Hgb O2 Saturation 96.2 Glucose Lactate Vent Mode Bipap FiO2 40.0 Tidal Volume PEEP Inspiratory BiPAP 14 Expiratory BiPAP 7 Crit Value Called To Prema rn Crit Value Called By [place] blade changer Crit Value Read Back Y Blood Gas Notified Time 600 Sodium Potassium Chloride Carbon Dioxide Anion Gap BUN Creatinine Est GFR ( Amer) Est GFR (Non-Af Amer) POC Glucose (mg/dL) Random Glucose Calcium Phosphorus Magnesium Total Bilirubin AST ALT Alkaline Phosphatase Ammonia 10 Total Protein Albumin Globulin Albumin/Globulin Ratio Arterial Blood Potassium 12/04/16 12/04/16 12/04/16 06:26 06:26 07:20 WBC 2.6 L RBC 3.19 L Hgb 8.4 L Hct 26.9 L MCV 84.3 D MCH 26.3 L MCHC 31.1 L RDW 25.7 H Plt Count 288 MPV 10.1 Neut % (Auto) 81.4 H Lymph % (Auto) 8.5 L [place] % (Auto) 9.8 Eos % (Auto) 0.1 Baso % (Auto) 0.2 Neut # 2.1 Lymph # 0.2 L [place] # 0.3 Eos # 0.0 Baso # 0.0 Neutrophils % (Manual) 68 Band Neutrophils % 9 H Lymphocytes % (Manual) 10 L Monocytes % (Manual) 12 H Metamyelocytes % 1 H Platelet Estimate Normal Large Platelets Present Hypochromasia (manual) Slight Anisocytosis (manual) Moderate APTT Puncture Site pCO2 pO2 HCO3 ABG pH ABG Total CO2 ABG O2 Saturation ABG Base Excess ABG Hemoglobin ABG Carboxyhemoglobin POC ABG HHb (Measured) ABG Methemoglobin Jose Test ABG Potassium A-a O2 Difference Respiratory Index Hgb O2 Saturation Glucose Lactate Vent Mode FiO2 Tidal Volume PEEP Inspiratory BiPAP Expiratory BiPAP Crit Value Called To Crit Value Called By Crit Value Read Back Blood Gas Notified Time Sodium 143 Potassium 4.7 Chloride 104 Carbon Dioxide 9 L* D Anion Gap 35 H BUN 74 H Creatinine 2.6 H Est GFR ( Amer) 30 Est GFR (Non-Af Amer) 24 POC Glucose (mg/dL) 430 H* Random Glucose 419 H* D Calcium 8.3 L Phosphorus 6.0 H Magnesium 2.7 H Total Bilirubin 0.9 AST 50 ALT 134 H D Alkaline Phosphatase 135 H Ammonia Total Protein 6.7 Albumin 3.1 L Globulin 3.6 Albumin/Globulin Ratio 0.9 L Arterial Blood Potassium 12/04/16 12/04/16 12/04/16 09:45 11:25 17:58 WBC RBC Hgb Hct MCV MCH MCHC RDW Plt Count MPV Neut % (Auto) Lymph % (Auto) [place] % (Auto) Eos % (Auto) Baso % (Auto) Neut # Lymph # [place] # Eos # Baso # Neutrophils % (Manual) Band Neutrophils % Lymphocytes % (Manual) Monocytes % (Manual) Metamyelocytes % Platelet Estimate Large Platelets Hypochromasia (manual) Anisocytosis (manual) APTT Puncture Site L/f pCO2 22 L pO2 182 H HCO3 12.0 L ABG pH 7.22 L ABG Total CO2 9.7 L ABG O2 Saturation 99.6 H ABG Base Excess -16.7 L ABG Hemoglobin ABG Carboxyhemoglobin POC ABG HHb (Measured) ABG Methemoglobin Jose Test Na ABG Potassium 4.2 A-a O2 Difference 504.0 Respiratory Index 2.8 Hgb O2 Saturation Glucose 387 H Lactate 1.6 Vent Mode FiO2 100.0 Tidal Volume 500 PEEP 6 Inspiratory BiPAP Expiratory BiPAP Crit Value Called To Dr powers Crit Value Called By Ori arevalo crt Crit Value Read Back Y Blood Gas Notified Time 950 Sodium 143.0 Potassium Chloride 111.0 H Carbon Dioxide Anion Gap BUN Creatinine Est GFR ( Amer) Est GFR (Non-Af Amer) POC Glucose (mg/dL) 445 H* 357 H Random Glucose Calcium Phosphorus Magnesium Total Bilirubin AST ALT Alkaline Phosphatase Ammonia Total Protein Albumin Globulin Albumin/Globulin Ratio Arterial Blood Potassium 4.2 Assessment & Plan (1) Coagulopathy Status: Acute (2) Dyspnea Status: Acute (3) MDS (myelodysplastic syndrome) Status: Acute (4) Neutropenia Status: Acute (5) Non-STEMI (non-ST elevated myocardial infarction) Status: Acute (6) Pneumonia Status: Acute (7) Sepsis Status: Acute (8) CHF (congestive heart failure) Status: Chronic (9) Bacteremia due to methicillin resistant Staphylococcus aureus Status: Acute
--- NOTE | 2016-12-05 00:22 | CP.PCM.PN ---
Subjective - Date & Time of Evaluation Date of Evaluation: 12/04/16 Time of Evaluation: 11:00 - Subjective Subjective: Patient seen and evaluated Intubated due to respiratory failure Electrolyte abnomalities Will continue to monitor Objective - Vital Signs/Intake and Output Vital Signs (last 24 hours): Temp Pulse Resp BP Pulse Ox 97 F L 79 34 H 100/45 L 100 12/04/16 20:00 12/04/16 23:01 12/04/16 23:01 12/04/16 23:01 12/04/16 23:01 Intake and Output: 12/04/16 12/05/16 18:59 06:59 Intake Total 653.6 471.6 Output Total 525 275 Balance 128.6 196.6 - Medications Medications: Current Medications Albuterol/Ipratropium (Duoneb 3 Mg/0.5 Mg (3 Ml) Ud) 3 ml INH RQ6 [facility] Last Admin: 12/04/16 20:01 Dose: 3 ml Aspirin (Aspirin Supp) 300 mg [place] DAILY [facility] Last Admin: 12/04/16 10:38 Dose: 300 mg Famotidine (Pepcid) 20 mg IVP DAILY [facility] Last Admin: 12/04/16 10:18 Dose: 20 mg Heparin Sodium/Sodium Chloride (Heparin 65188 Units/250ml 1/2 Normal Saline) 25 ,000 units in 250 mls @ 7.947 mls/hr IV .Q24H PRN; Protocol; 12 UNITS/KG/HR PRN Reason: PROTOCOL Last Admin: 12/04/16 06:51 Dose: 20 units/kg/hr, 13.245 mls/hr Propofol (Diprivan) 1,000 mg in 100 mls @ 2.01 mls/hr IV .Q24H PRN; Protocol; 5 MCG/KG/MIN PRN Reason: TITRATE PER MD ORDER Last Admin: 12/04/16 17:23 Dose: 30 mcg/kg/min, 12.06 mls/hr Diltiazem HCl 125 mg/ Sodium (Chloride) 125 mls @ 5 mls/hr IV .Q24H [facility]; 5 MG/ HR PRN Reason: Protocol Last Titration: 12/04/16 22:00 Dose: 10 mg/hr, 10 mls/hr Daptomycin 360 mg/ Sodium (Chloride) 100 mls @ 100 mls/hr IV Q48H [facility] Stop: 12/09/16 18:01 Last Admin: 12/04/16 17:24 Dose: 100 mls/hr Tigecycline 50 mg/ Dextrose 100 mls @ 100 mls/hr IVPB Q12H [facility] Cefepime HCl 1 gm/ Dextrose 50 mls @ 100 mls/hr IVPB Q24H [facility] Last Admin: 12/04/16 20:15 Dose: 100 mls/hr Insulin Human Regular (Novolin R) 0 unit SC Q6H [facility] PRN Reason: Protocol Methylprednisolone (Solu-Medrol) 20 mg IVP Q12 [facility] Last Admin: 12/04/16 21:50 Dose: 20 mg Metoprolol Tartrate (Lopressor) 2.5 mg IVP Q8 [facility] Last Admin: 12/04/16 21:50 Dose: 2.5 mg Nicotine (Nicoderm Cq) 1 patch TD DAILY [facility] Last Admin: 12/04/16 10:19 Dose: 1 patch Nitroglycerin (Nitro-Bid 2% Oint) 1 ea TOP Q6 [facility] Last Admin: 12/04/16 17:41 Dose: Not Given - Labs Labs: 12/04/16 06:26 12/04/16 06:26 PT 13.7 SECONDS (9.7-12.2) H 12/01/16 02:35 INR 1.2 12/01/16 02:35 APTT 53 SECONDS (21-34) H 12/04/16 06:26
[2016-12-05] MEDS: (Novolin R) Insulin Human Regular 100 units/ml vial SC SCH ×5 (00:30→18:45)
[2016-12-05] MEDS: Propofol 10 mg/ml 1,000 MG/100 ML VIAL IV PRN ×3 (00:40→22:20)
[2016-12-05] MEDS: Heparin25000 units/250ml 1/2NS 25,000 UNITS/250 ML BAG IV PRN ×2 (00:45→21:15)
[2016-12-05] MEDS: Albuterol-Ipratrop 3 mg / 0.5 (3 ml) UD INH SCH ×4 (02:30→20:18)
[2016-12-05] MEDS: Nitroglycerin 2% Ointment Foilpak UD TOP SCH ×4 (06:00→18:00)
[2016-12-05 06:17] LABS: ABG ALLEN TEST POS; ABG MECHANICAL RATE 20; ARTERIAL BLOOD HGB O2 SAT 93.9 % (95.0-98.0); DRAW SITE L RAD; HHB 2.6 % (0.0-5.0); METHEMOGLOBIN 1.4 % (0.0-3.0)
[2016-12-05] MEDS: Metoprolol 1 mg/ml Inj IVP SCH ×3 (06:40→22:00)
[2016-12-05 06:47] LABS: BASO % 0.2 % (0.0-2.0); HEMATOCRIT 26.2 % (35.0-51.0); LYMPH # 0.2 K/uL (1.0-4.3); LYMPH % 7.4 % (20.0-40.0); MEAN CELL VOLUME 82.1 fL (80.0-94.0); MEAN CORPUSCULAR HEMOGLOBIN 26.1 pg (27.0-31.0); MEAN CORPUSCULAR HGB CONC 31.7 g/dL (33.0-37.0); MEAN PLATELET VOLUME 10.2 fL (7.2-11.7); MONO # 0.2 K/uL (0.0-0.8); MONO % 8.8 % (0.0-10.0); NRBC % 1.4 % (0.0-2.0); PLATELET COUNT 231 K/uL (130-400); RED CELL DISTRIBUTION WIDTH 26.3 % (11.5-14.5); WHITE BLOOD COUNT 2.6 K/uL (4.8-10.8)
[2016-12-05 06:58] LABS: POTASSIUM 4.5 mmol/L (3.6-5.2)
[2016-12-05 07:00] LABS: ALB/GLOB RATIO 0.8 (1.0-2.1); BILIRUBIN,TOTAL 0.8 mg/dL (0.2-1.3); TOTAL PROTEIN 6.3 g/dL (6.3-8.3)
[2016-12-05 07:01] LABS: CALCIUM 8.2 mg/dl (8.6-10.4); MAGNESIUM 2.7 mg/dL (1.6-2.3); PHOSPHOROUS 4.9 mg/dL (2.5-4.5)
--- NOTE | 2016-12-05 07:12 | CP.PCM.PN ---
<Karo Washington - Last Filed: 12/05/16 12:57> Subjective - Date & Time of Evaluation Date of Evaluation: 12/05/16 Time of Evaluation: 07:30 - Subjective Subjective: Cardiology progress note for Dr. Apple Patient seen at bedside in ICU. Currently sedated and intubated on vent (20, 500 , 0, 40%). As per nursing patient is waking up and sedation is being titrated down. Patient is currently on heparing gtt and cardizem gtt @ 10cc. HR converted to NSR overnight and has been between 60-90bpm. Patient making borderline UO 20-50cc/hr and has not had a BM in 1 day. Tolerating feeds @ 20cc/ hr. No acute events overnight and patient was afebrile as per nursing. ROS unobtainable secondary to patient's clinical condition. Objective - Vital Signs/Intake and Output Vital Signs (last 24 hours): Temp Pulse Resp BP Pulse Ox 98.8 F 84 26 H 104/58 L 100 12/05/16 04:00 12/05/16 04:00 12/05/16 04:00 12/05/16 04:00 12/05/16 04:00 Intake and Output: 12/05/16 12/05/16 06:59 18:59 Intake Total 1211.4 Output Total 275 Balance 936.4 - Medications Medications: Current Medications Albuterol/Ipratropium (Duoneb 3 Mg/0.5 Mg (3 Ml) Ud) 3 ml INH RQ6 [facility] Last Admin: 12/05/16 02:30 Dose: 3 ml Aspirin (Aspirin Supp) 300 mg MO DAILY [facility] Last Admin: 12/04/16 10:38 Dose: 300 mg Famotidine (Pepcid) 20 mg IVP DAILY [facility] Last Admin: 12/04/16 10:18 Dose: 20 mg Heparin Sodium/Sodium Chloride (Heparin 01791 Units/250ml 1/2 Normal Saline) 25 ,000 units in 250 mls @ 7.947 mls/hr IV .Q24H PRN; Protocol; 12 UNITS/KG/HR PRN Reason: PROTOCOL Last Admin: 12/05/16 00:45 Dose: 20 units/kg/hr, 13.245 mls/hr Propofol (Diprivan) 1,000 mg in 100 mls @ 2.01 mls/hr IV .Q24H PRN; Protocol; 5 MCG/KG/MIN PRN Reason: TITRATE PER MD ORDER Last Admin: 12/05/16 00:40 Dose: 25 mcg/kg/min, 10.05 mls/hr Diltiazem HCl 125 mg/ Sodium (Chloride) 125 mls @ 5 mls/hr IV .Q24H [facility]; 5 MG/ HR PRN Reason: Protocol Last Admin: 12/05/16 05:10 Dose: 10 mg/hr, 10 mls/hr Daptomycin 360 mg/ Sodium (Chloride) 100 mls @ 100 mls/hr IV Q48H [facility] Stop: 12/09/16 18:01 Last Admin: 12/04/16 17:24 Dose: 100 mls/hr Tigecycline 50 mg/ Dextrose 100 mls @ 100 mls/hr IVPB Q12H [facility] Cefepime HCl 1 gm/ Dextrose 50 mls @ 100 mls/hr IVPB Q24H [facility] Last Admin: 12/04/16 20:15 Dose: 100 mls/hr Insulin Human Regular (Novolin R) 0 unit SC Q6H [facility] PRN Reason: Protocol Last Admin: 12/05/16 06:55 Dose: 8 unit Methylprednisolone (Solu-Medrol) 20 mg IVP Q12 [facility] Last Admin: 12/04/16 21:50 Dose: 20 mg Metoprolol Tartrate (Lopressor) 2.5 mg IVP Q8 [facility] Last Admin: 12/05/16 06:40 Dose: 2.5 mg Nicotine (Nicoderm Cq) 1 patch TD DAILY [facility] Last Admin: 12/04/16 10:19 Dose: 1 patch Nitroglycerin (Nitro-Bid 2% Oint) 1 ea TOP Q6 [facility] Last Admin: 12/05/16 06:00 Dose: Not Given - Labs Labs: 12/05/16 06:37 12/05/16 06:37 PT 13.7 SECONDS (9.7-12.2) H 12/01/16 02:35 INR 1.2 12/01/16 02:35 APTT 55 SECONDS (21-34) H 12/05/16 06:37 - Constitutional Appears: Chronically Ill - Head Exam Head Exam: ATRAUMATIC - Eye Exam Eye Exam: Normal appearance. absent: Conjunctival injection, Scleral icterus - ENT Exam ENT Exam: Mucous Membranes Dry Additional comments: ET tube in place - Respiratory Exam Respiratory Exam: Clear to Ausculation Bilateral, NORMAL BREATHING PATTERN. absent: Accessory Muscle Use, Rales, Rhonchi, Wheezes, Respiratory Distress Additional comments: intubated on vent (20, 500, 0, 40%) - Cardiovascular Exam Cardiovascular Exam: REGULAR RHYTHM, RRR, +S1, +S2. absent: Bradycardia, Tachycardia, Murmur - GI/Abdominal Exam GI & Abdominal Exam: Soft, Normal Bowel Sounds - Extremities Exam Extremities Exam: absent: Pedal Edema - Neurological Exam Neurological Exam: absent: Alert, Awake, Oriented x3 Additional comments: sedated - Skin Skin Exam: Dry, Intact Assessment and Plan - Assessment and Plan (Free Text) Assessment: 71 M PMHx of DM, CAD complicated by MN s/p stent, PVD, admitted for SOB. Patient was found to have acute NSTEMI complicated with cardiogenic shock. Cardiology consulted for NSTEMI Plan: -As per Dr. Snyder, patient is not a candidate for cardiac cath at the moment due to clinical condition -Echo 12/04 LV mildly dilated Mild concentric LVH EF 30-35% Moderate global hypokinesis LV diastolic function is normal R atrium appears mildly dilated Mild aortic regurgitation Mitral regurgitation is moderate Mild tricuspid regurgitation -Echo 12/03 LV systolic function is severely impaired EF 20-25% Mild aortic regurgitation Mitral regurgitation is mild Mild tricuspid regurgitation Borderline pulmonary htn No pulmonic valvular regurgitation -EKG 12/02 7:38: sinus tachycardia with PACs, L axis deviation, Anteroseptal infarct, ST and T wave abnormality, consider lateral ischemia -EKG 12/01 1:35: sinus tachycardia with PACs, L axis deviation, Incomplete RBBB, anteroseptal infarct, marked ST abnormality, possible lateral subendocardial injury -Elevated troponins 12/01 2:35 4.0900 12/01 6:36 3.1100 12/01 16:34 146.0000 12/01 18:08 129.0000 12/02 6:06 39.3000 12/03 4:56 13.5000 -Continue current management ASA 300mg pr daily Heparin gtt Cardizem gtt Lopressor 2.5mg ivp q8 Nitrobid 1 ea top q6 Case discussed with Dr. Ambika Washington PGY2 <Santy Apple - Last Filed: 01/06/17 17:41> Objective - Vital Signs/Intake and Output Vital Signs (last 24 hours): Temp Pulse Resp BP Pulse Ox 98 F 58 L 26 H 62/29 L 68 L 12/07/16 08:00 12/08/16 11:37 12/08/16 11:37 12/08/16 11:37 12/07/16 10:03 - Labs Labs: 12/07/16 05:59 12/07/16 05:59 PT 13.7 SECONDS (9.7-12.2) H 12/01/16 02:35 INR 1.2 12/01/16 02:35 APTT 55 SECONDS (21-34) H 12/07/16 05:59 Attending/Attestation - Attestation I have personally seen and examined this patient.: Yes I have fully participated in the care of the patient.: Yes I have reviewed all pertinent clinical information, including history, physical exam and plan: Yes Notes (Text): 01/06/17 17:41 sedated and intubayed NSR now
[2016-12-05 08:37] LABS: NEUTROPHIL 76 % (50-75); NUCLEATED RED BLOOD CELL 1 % (0-0); TOTAL CELLS COUNTED 100
--- NOTE | 2016-12-05 08:59 | CP.PCM.CON ---
History of Present Illness - History of Present Illness History of Present Illness: Palliative consult Reason: goals of care discussin Requested by Angel VERA Patient is a 71 yo male admitted from home after was feeling worm with SOB. Upon admission CXR was significant for Pulmonary edema, CHF, and pneumonia. Ct Head was negative. Cubicin IV, Tygacil Iv and Maxipime IV started as well as Neb Tx. During the first 24 hr of admission patient was on Bipap . Despite it, patient's respiratory status has worsened requesting assistance from MV. The daughter agreed with intubation as per report, but refused to give consent for central line insertion. On admission WBC 2.6, Hb 8.4, Blood glucose 445, Alb 3.1. BP 90/42, HR 75, O2Sat 99% on MV Patient was treated in community by Doctor Knutson for Myelodysplastic syndrome with Decitabine IV. The impression is that severe panctopenia comes as a side effect of that intervention. PMH: MDS, anemia, PVD, heart failure, coronary stents, CAD, pancytopenia, neutropenia, possible right foot osteomelitis Soc. Hx: smoked > 10 cabarets a day, single, lives with daughter Fam hx: Malignancy in family denied Review of Systems - Review of Systems Systems not reviewed;Unavailable: Intubated All systems: reviewed and no additional remarkable complaints except Review of Systems: ROS obtained from nursing. No overnight events. patient tolerated MV well. Right foot XRay pending to R/O osteomylitis. Past Patient History - Infectious Disease Hx of Infectious Diseases: None - Tetanus Immunizations Tetanus Immunization: Unknown - Past Medical History & Family History Past Medical History?: No - Past Social History Smoking Status: Heavy Smoker > 10 Cigarettes Daily - CARDIAC Hx Hypercholesterolemia: Yes Hx Hypertension: Yes - PULMONARY Hx Respiratory Disorders: No - NEUROLOGICAL Hx Paralysis: No - HEENT Hx HEENT Problems: No - RENAL Hx Chronic Kidney Disease: Yes Hx Kidney Stones: Yes - ENDOCRINE/METABOLIC Hx Endocrine Disorders: Yes Hx Diabetes Mellitus Type 2: Yes - HEMATOLOGICAL/ONCOLOGICAL Hx Anemia: Yes - INTEGUMENTARY Hx Dermatological Problems: Yes Hx Cellulitis: Yes - MUSCULOSKELETAL/RHEUMATOLOGICAL Hx Musculoskeletal Disorders: Yes Hx Falls: Yes - GASTROINTESTINAL Hx Gastrointestinal Disorders: No - GENITOURINARY/GYNECOLOGICAL Hx Genitourinary Disorders: No - PSYCHIATRIC Hx Substance Use: No - SURGICAL HISTORY Hx Coronary Stent: Yes - ANESTHESIA Hx Anesthesia: Yes Meds Allergies/Adverse Reactions: Allergies Allergy/AdvReac Type Severity Reaction Status Date / Time No Known Allergies Allergy Verified 09/16/16 20:22 - Medications Medications: Current Medications Albuterol/Ipratropium (Duoneb 3 Mg/0.5 Mg (3 Ml) Ud) 3 ml INH RQ6 [facility] Last Admin: 12/05/16 07:28 Dose: 3 ml Aspirin (Aspirin Supp) 300 mg RI DAILY [facility] Last Admin: 12/04/16 10:38 Dose: 300 mg Famotidine (Pepcid) 20 mg IVP DAILY [facility] Last Admin: 12/04/16 10:18 Dose: 20 mg Heparin Sodium/Sodium Chloride (Heparin 63989 Units/250ml 1/2 Normal Saline) 25 ,000 units in 250 mls @ 7.947 mls/hr IV .Q24H PRN; Protocol; 12 UNITS/KG/HR PRN Reason: PROTOCOL Last Admin: 12/05/16 00:45 Dose: 20 units/kg/hr, 13.245 mls/hr Propofol (Diprivan) 1,000 mg in 100 mls @ 2.01 mls/hr IV .Q24H PRN; Protocol; 5 MCG/KG/MIN PRN Reason: TITRATE PER MD ORDER Last Admin: 12/05/16 00:40 Dose: 25 mcg/kg/min, 10.05 mls/hr Diltiazem HCl 125 mg/ Sodium (Chloride) 125 mls @ 5 mls/hr IV .Q24H [facility]; 5 MG/ HR PRN Reason: Protocol Last Admin: 12/05/16 05:10 Dose: 10 mg/hr, 10 mls/hr Daptomycin 360 mg/ Sodium (Chloride) 100 mls @ 100 mls/hr IV Q48H [facility] Stop: 12/09/16 18:01 Last Admin: 12/04/16 17:24 Dose: 100 mls/hr Tigecycline 50 mg/ Dextrose 100 mls @ 100 mls/hr IVPB Q12H [facility] Cefepime HCl 1 gm/ Dextrose 50 mls @ 100 mls/hr IVPB Q24H [facility] Last Admin: 12/04/16 20:15 Dose: 100 mls/hr Insulin Human Regular (Novolin R) 0 unit SC Q6H [facility] PRN Reason: Protocol Last Admin: 12/05/16 06:55 Dose: 8 unit Methylprednisolone (Solu-Medrol) 20 mg IVP Q12 [facility] Last Admin: 12/04/16 21:50 Dose: 20 mg Metoprolol Tartrate (Lopressor) 2.5 mg IVP Q8 [facility] Last Admin: 12/05/16 06:40 Dose: 2.5 mg Nicotine (Nicoderm Cq) 1 patch TD DAILY [facility] Last Admin: 12/04/16 10:19 Dose: 1 patch Nitroglycerin (Nitro-Bid 2% Oint) 1 ea TOP Q6 [facility] Last Admin: 12/05/16 06:00 Dose: Not Given Physical Exam - Constitutional Appears: Chronically Ill - Head Exam Head Exam: ATRAUMATIC, NORMAL INSPECTION, NORMOCEPHALIC - Eye Exam Eye Exam: EOMI, Normal appearance, PERRL Pupil Exam: NORMAL ACCOMODATION, PERRL - ENT Exam ENT Exam: Mucous Membranes Dry Additional comments: Et tube - Respiratory Exam Additional comments: On MV - Cardiovascular Exam Cardiovascular Exam: Tachycardia, REGULAR RHYTHM - GI/Abdominal Exam GI & Abdominal Exam: Diminished Bowel Sounds, Soft - Rectal Exam Rectal Exam: Deferred - Exam Additional comments: Powell cath - Extremities Exam Extremities exam: Positive for: pedal edema - Back Exam Back exam: NORMAL INSPECTION - Neurological Exam Neurological exam: Motor Sensory Deficit - Psychiatric Exam Psychiatric exam: Flat Affect - Skin Skin Exam: Dry, Pallor Additional comments: Right foot wound Results - Vital Signs Recent Vital Signs: Last Vital Signs Temp 98.8 F 12/05/16 04:00 Pulse 74 12/05/16 07:00 Resp 26 H 12/05/16 07:00 BP 90/51 L 12/05/16 07:00 Pulse Ox 95 12/05/16 07:00 - Labs Result Diagrams: 12/05/16 06:37 12/05/16 06:37 Labs: Laboratory Results - last 24 hr 12/04/16 12/04/16 12/04/16 09:45 11:25 17:58 WBC RBC Hgb Hct MCV MCH MCHC RDW Plt Count MPV Neut % (Auto) Lymph % (Auto) Linn % (Auto) Eos % (Auto) Baso % (Auto) Neut # Lymph # Linn # Eos # Baso # Neutrophils % (Manual) Band Neutrophils % Lymphocytes % (Manual) Monocytes % (Manual) Nucleated RBC % Platelet Estimate Hypochromasia (manual) Anisocytosis (manual) Microcytosis (manual) APTT Puncture Site L/f pCO2 22 L pO2 182 H HCO3 12.0 L ABG pH 7.22 L ABG Total CO2 9.7 L ABG O2 Saturation 99.6 H ABG Base Excess -16.7 L ABG Hemoglobin ABG Carboxyhemoglobin POC ABG HHb (Measured) ABG Methemoglobin Jose Test Na ABG Potassium 4.2 A-a O2 Difference 504.0 Respiratory Index 2.8 Hgb O2 Saturation Sodium 143.0 Chloride 111.0 H Glucose 387 H Lactate 1.6 Mechanical Rate FiO2 100.0 Tidal Volume 500 PEEP 6 Crit Value Called To Dr powers Crit Value Called By 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 Crit Value Read Back Y Blood Gas Notified Time 950 Potassium Carbon Dioxide Anion Gap BUN Creatinine Est GFR ( Amer) Est GFR (Non-Af Amer) POC Glucose (mg/dL) 445 H* 357 H Random Glucose Calcium Phosphorus Magnesium Total Bilirubin AST ALT Alkaline Phosphatase Total Protein Albumin Globulin Albumin/Globulin Ratio Arterial Blood Potassium 4.2 12/04/16 12/05/16 12/05/16 23:38 06:00 06:37 WBC 2.6 L RBC 3.19 L Hgb 8.3 L Hct 26.2 L MCV 82.1 D MCH 26.1 L MCHC 31.7 L RDW 26.3 H Plt Count 231 MPV 10.2 Neut % (Auto) 83.6 H Lymph % (Auto) 7.4 L Linn % (Auto) 8.8 Eos % (Auto) 0.0 Baso % (Auto) 0.2 Neut # 2.1 Lymph # 0.2 L Linn # 0.2 Eos # 0.0 Baso # 0.0 Neutrophils % (Manual) 76 H Band Neutrophils % 4 H Lymphocytes % (Manual) 9 L Monocytes % (Manual) 11 H Nucleated RBC % 1 H Platelet Estimate Normal Hypochromasia (manual) Slight Anisocytosis (manual) Moderate Microcytosis (manual) Slight APTT Puncture Site L rad pCO2 29 L pO2 77 L HCO3 20.2 L ABG pH 7.40 ABG Total CO2 18.9 L ABG O2 Saturation 97.3 ABG Base Excess -6.0 L ABG Hemoglobin 8.4 L ABG Carboxyhemoglobin 2.0 H POC ABG HHb (Measured) 2.6 ABG Methemoglobin 1.4 Jose Test Pos ABG Potassium A-a O2 Difference 172.0 Respiratory Index 2.2 Hgb O2 Saturation 93.9 L Sodium Chloride Glucose Lactate Mechanical Rate 20 FiO2 40.0 Tidal Volume 500 PEEP Crit Value Called To Crit Value Called By Crit Value Read Back Blood Gas Notified Time Potassium Carbon Dioxide Anion Gap BUN Creatinine Est GFR ( Amer) Est GFR (Non-Af Amer) POC Glucose (mg/dL) 326 H Random Glucose Calcium Phosphorus Magnesium Total Bilirubin AST ALT Alkaline Phosphatase Total Protein Albumin Globulin Albumin/Globulin Ratio Arterial Blood Potassium 12/05/16 12/05/16 12/05/16 06:37 06:37 06:47 WBC RBC Hgb Hct MCV MCH MCHC RDW Plt Count MPV Neut % (Auto) Lymph % (Auto) Linn % (Auto) Eos % (Auto) Baso % (Auto) Neut # Lymph # Linn # Eos # Baso # Neutrophils % (Manual) Band Neutrophils % Lymphocytes % (Manual) Monocytes % (Manual) Nucleated RBC % Platelet Estimate Hypochromasia (manual) Anisocytosis (manual) Microcytosis (manual) APTT 55 H Puncture Site pCO2 pO2 HCO3 ABG pH ABG Total CO2 ABG O2 Saturation ABG Base Excess ABG Hemoglobin ABG Carboxyhemoglobin POC ABG HHb (Measured) ABG Methemoglobin Jose Test ABG Potassium A-a O2 Difference Respiratory Index Hgb O2 Saturation Sodium 142 Chloride 107 Glucose Lactate Mechanical Rate FiO2 Tidal Volume PEEP Crit Value Called To Crit Value Called By Crit Value Read Back Blood Gas Notified Time Potassium 4.5 Carbon Dioxide 17 L Anion Gap 23 H BUN 98 H Creatinine 2.6 H Est GFR ( Amer) 30 Est GFR (Non-Af Amer) 24 POC Glucose (mg/dL) 370 H Random Glucose 433 H* Calcium 8.2 L Phosphorus 4.9 H Magnesium 2.7 H Total Bilirubin 0.8 AST 63 H D ALT 176 H D Alkaline Phosphatase 155 H Total Protein 6.3 Albumin 2.7 L Globulin 3.6 Albumin/Globulin Ratio 0.8 L Arterial Blood Potassium Assessment & Plan - Assessment and Plan (Free Text) Assessment: Palliative consult Code status Full Code, no advance directive on the chart, PPs 0% I reviewed medical records, all diagnostic studies, examined patient in the bed , discussed his condition with nursing, and had a phone conversation ith patient 's daughter Chayito Billings [phone] Patient is on MV unresponsive to stimuli with eyes closed and affect that is flat. Patient looks in poor hygiene, hair is long and unkept. Skin is dry and pale. There is aright foot wound being studied for osteomyelitis. There is a pedal edema. Abdomen is soft, Powell drains alicia urine. patient is hypotensive 90/42, HR 75. Blood sugar remains high 300 -400. Hb is dropping to 8.3. per nursing, patient's daughter refused the central line insertion, which is actually very needed given all the IV antibiotics patient is getting. I reached out to the daughter over the phone. I suggested that it would be beneficial for patient and her as well if we meet and discuss goals of care. I am not sure if daughter fully understands severity of her father's condition as she said she was " very busy" and " had more important things" to take care of. However, she agreed to a family meeting for today, but did not specify the time. Impression * This is a chronically ill man in acute respiratory distress * Patient's wishes for goals of care discussion are not known * Patient is not able to advocate for him self due to condition * Patient's daughter is advocating for him but I am not sure how much she understands about patient's condition, as she refused to consent to a central line * Severe pancytopenia, anemia and uncontrolled blood sugar are making this man very vulnerable for the supra infection * I see this patient as a very seek with guarded to poor prognosis Suggestion * Reversal isolation * Right wound care * Family meeting with the daughter for goals of care discussion * DNR status would be appropriate for this very sick patient with extensive cardiac hx I will fallow up with the daughter for the family meeting. Thank you for consulting Palliative Care
--- NOTE | 2016-12-05 09:03 | RAD ---
PROCEDURE: Right Ankle Radiographs. HISTORY: r/o osteo COMPARISON: 08/28/2016 FINDINGS: BONES: Normal. No fractureNo acute fracture. There is periosteal reaction seen along the medial aspect of the distal tibial diaphysis extending to the medial malleolus. This is suspicious for osteomyelitis. There is no osseous erosion. Please note that the examination is limited to only two views. There is a corticated ossific density distal to the lateral tibial articular surface which is unchanged from prior examination. Possible old fracture fragment with nonunion. JOINTS: Normal. No osteoarthritis. Ankle mortise maintained. Talar dome intact SOFT TISSUES: Soft tissue ulceration anterior and medial aspect of the ankle. OTHER FINDINGS: None. IMPRESSION: Soft tissue ulceration over anterior and medial aspect of the ankle. Periosteal reaction, smooth, along distal tibial diaphysis to the medial malleolus. Uncertain significance but the possibility of osteomyelitis must be considered. Possible nonunion of old fracture distal medial tibia, unchanged.
[2016-12-05] MEDS ORDERED: (Novolin R) Insulin Human Regular 100 units/ml vial SC SCH (09:15)
--- NOTE | 2016-12-05 09:41 | CARD ---
APPROVED REPORT EXAM: Two-dimensional and M-mode echocardiogram with Doppler and color Doppler. Other Information Quality : Good[employer] : INDICATION ICD: Endocarditis 2D DIMENSIONS IVSd1.2 (0.7-1.1cm)LVDd5.5 (3.9-5.9cm) LVOT Diameter2.0 (1.8-2.4cm)PWd1.0 (0.7-1.1cm) IVSs1.5 (0.8-1.2cm)LVDs4.6 (2.5-4.0cm) FS (%) 15.3 %PWs1.0 (0.8-1.2cm) LVEF (%)32.0 (>50%) M-Mode DIMENSIONS RVDd1.33 (2.1-3.2cm)Left Atrium (MM)4.06 (2.5-4.0cm) IVSd0.94 (0.7-1.1cm)Aortic Root3.40 (2.2-3.7cm) LVDd6.01 (4.0-5.6cm)Aortic Cusp Exc.1.95 (1.5-2.0cm) PWd0.98 (0.7-1.1cm)FS (%) 25 % LVDs4.49 (2.0-3.8cm)LVEF (%)49 (>50%) Aortic Valve LVOT Peak Flmbivtk32.4cm/Danica P 1/2 [id number] Mitral Valve MV E Iasfqopi751.4cm/sMV A Fiypqnuh66.9cm/sE/A ratio2.2 TDI E/Lateral E'0.0E/Medial E'0.0 Tricuspid Valve TR Peak Olqqtwen864mc/sTR Peak [id number] LEFT VENTRICLE The Left Ventricle is mildly dilated. There is mild concentric left ventricular hypertrophy. Left ventricle systolic function is moderately to severely impaired with Ejection Fraction is 30-35%. There is moderate global hypokinesis. The left ventricular diastolic function is normal. No left ventricle thrombus noted on this study. RIGHT VENTRICLE The right ventricle is normal size. The right ventricular systolic function is normal. ATRIA The left atrium is mildly dilated. The right atrium appears mildly dilated. AORTIC VALVE The aortic valve is mildly to moderately sclerotic. There is mild aortic regurgitation. There is no aortic valvular stenosis. MITRAL VALVE Mitral annular calcification is moderate. The mitral valve leaflets are thickened. There is no evidence of mitral valve prolapse. There is no mitral valve stenosis. Mitral regurgitation is moderate. TRICUSPID VALVE The tricuspid valve is normal in structure. There is mild tricuspid regurgitation. Right ventricular systolic pressure is estimated at 30-40 mmHg. There is no pulmonary hypertension. There is no tricuspid valve prolapse or vegetation. There is no tricuspid valve stenosis. PULMONIC VALVE The pulmonic valve is not well visualized. There is no pulmonic valvular regurgitation. GREAT VESSELS The aortic root is normal in size. The IVC collapses <50% with inspiration. PERICARDIAL EFFUSION There is no pericardial effusion. There is no pleural effusion. <Conclusion> The Left Ventricle is mildly dilated. There is mild concentric left ventricular hypertrophy. Left ventricle systolic function is moderately to severely impaired with Ejection Fraction is 30-35%. There is moderate global hypokinesis. The left ventricular diastolic function is normal. The right atrium appears mildly dilated. There is mild aortic regurgitation. Mitral regurgitation is moderate. There is mild tricuspid regurgitation.
--- NOTE | 2016-12-05 10:56 | CP.CCUPN ---
<Stephani Johnson - Last Filed: 12/05/16 11:02> CCU Subjective - Physician Review Subjective (Free Text): Patient was seen and examined at bedside this AM. Patient is intubated and sedated. Spoke with the daughter Jo she continues to deny a central line. Will call her back to clarify a consent for a PICC line. Per Merari [place] the daughter has agreed to come to the hospital to speak to her in regards to her father's condition. 12/05/16 11:02 CCU Objective - Vital Signs / Intake & Output Vital Signs (Last 4 hours): Vital Signs Pulse Resp BP Pulse Ox 12/05/16 07:00 74 26 H 90/51 L 95 Intake and Output (Last 8hrs): Intake & Output 12/04/16 12/05/16 12/05/16 22:59 06:59 14:59 Intake Total 716.7 850.4 153.3 Output Total 440 400 Balance 276.7 450.4 153.3 Weight 144 lb 13.499 oz Intake: IV 155 420 100 Intake, IV Amount 471.7 270.4 33.3 Left Hand 200 Left Wrist 39.9 105.6 13.2 Left Wrist Y-site 36.3 84.8 10.1 Right 66.0 Right Forearm 20 80 10 Right PICC 109.5 Oral 30 Tube Feeding 60 160 20 Output: Urine 440 400 Urethral (Powell) 440 400 - Physical Exam Head: Positive for: Atraumatic, Normocephalic Pupils: Positive for: PERRL Extroacular Muscles: Positive for: EOMI Conjunctiva: Positive for: Normal Mouth: Positive for: Dry Respiratory/Chest: Positive for: Respiratory Distress, Decreased Breath Sounds, Tachypneic. Negative for: Rales Cardiovascular: Positive for: Normal S1, S2, Irregular Rhythm (afib- rate controlled ), Tachycardic Abdomen: Negative for: Tenderness, Distention, Normal Bowel Sounds (hypo bowel sounds ) Upper Extremity: Positive for: Normal Inspection, Other (PICC line currently in Right arm ) Lower Extremity: Positive for: Normal Inspection. Negative for: Edema, CALF TENDERNESS, Tenderness, Swelling Neurological: Negative for: GCS=15 Skin: Positive for: Warm, Dry Psychiatric: Positive for: Alert. Negative for: Oriented x 3, Normal Insight, Normal Concentration - Medications Active Medications: Active Medications Generic Name Dose Route Start Last Admin Trade Name Freq PRN Reason Stop Dose Admin Albuterol/Ipratropium 3 ml 12/01/16 08:00 12/05/16 07:28 Duoneb 3 Mg/0.5 Mg (3 Ml) Ud INH 3 ml RQ6 LOUANN Administration Aspirin 300 mg 12/02/16 10:00 12/05/16 10:21 Aspirin Supp [place] 300 mg DAILY LOUANN Administration Famotidine 20 mg 12/01/16 10:00 12/05/16 10:25 Pepcid IVP 20 mg DAILY LOUANN Administration Heparin Sodium/Sodium Chloride 25,000 units in 250 mls @ 7.947 mls/hr 10:04 12/05/16 00:45 Heparin 99099 Units/250ml 1/2 Normal Saline IV 20 units/kg/hr .Q24H PRN 13.245 mls/hr PROTOCOL Administration Protocol 12 UNITS/KG/HR Propofol 1,000 mg in 100 mls @ 2.01 mls/hr 12/04/16 08:54 12/05/16 08:58 Diprivan IV 20 mcg/kg/min .Q24H PRN 8.04 mls/hr TITRATE PER MD ORDER Administration Protocol 5 MCG/KG/MIN Diltiazem HCl 125 mg/ Sodium 125 mls @ 5 mls/hr 12/04/16 13:00 12/05/16 05:10 Chloride IV 10 mg/hr .Q24H LOUANN 10 mls/hr Protocol Administration 5 MG/HR Daptomycin 360 mg/ Sodium 100 mls @ 100 mls/hr 12/04/16 18:00 12/04/16 17:24 Chloride IV 12/09/16 18:01 100 mls/hr Q48H LOUANN Administration Tigecycline 50 mg/ Dextrose 100 mls @ 100 mls/hr 12/05/16 17:00 IVPB Q12H LOUANN Cefepime HCl 1 gm/ Dextrose 50 mls @ 100 mls/hr 12/04/16 19:00 12/04/16 20:15 IVPB 100 mls/hr Q24H LOUANN Administration Insulin Human Regular 0 unit 12/05/16 09:30 12/05/16 10:20 Novolin R SC Not Given Q6 LOUANN Protocol Metoprolol Tartrate 2.5 mg 12/01/16 22:00 12/05/16 06:40 Lopressor IVP 2.5 mg Q8 LOUANN Administration Nicotine 1 patch 12/03/16 10:00 12/05/16 10:21 Nicoderm Cq TD 1 patch DAILY LOUANN Administration Nitroglycerin 1 ea 12/01/16 12:00 12/05/16 06:00 Nitro-Bid 2% Oint TOP Not Given Q6 LOUANN - Patient Studies Lab Studies: Microbiology Studies 12/03/16 Unknown Gram Stain - Final Ankle - Right Wound Culture - Preliminary Gram Negative Luis 12/01/16 16:00 Blood Culture - Preliminary Blood NO GROWTH AFTER 3 DAYS 12/01/16 16:00 S.aureus & Coag-Neg Staph PNA FISH - Final Blood Blood Culture - Preliminary Methicillin Resistant S Aureus Gram Stain - Final Lab Studies 12/05/16 12/05/16 12/05/16 Range/Units 06:47 06:37 06:37 WBC (4.8-10.8) K/uL RBC (4.40-5.90) Mil/uL Hgb (12.0-18.0) g/dL Hct (35.0-51.0) % MCV (80.0-94.0) fL MCH (27.0-31.0) pg MCHC (33.0-37.0) g/dL RDW (11.5-14.5) % Plt Count (130-400) K/uL MPV (7.2-11.7) fL Neut % (Auto) (50.0-75.0) % Lymph % (Auto) (20.0-40.0) % [place] % (Auto) (0.0-10.0) % Eos % (Auto) (0.0-4.0) % Baso % (Auto) (0.0-2.0) % Neut # (1.8-7.0) K/uL Lymph # (1.0-4.3) K/uL [place] # (0.0-0.8) K/uL Eos # (0.0-0.7) K/uL Baso # (0.0-0.2) K/uL Neutrophils % (Manual) (50-75) % Band Neutrophils % (0-2) % Lymphocytes % (Manual) (20-40) % Monocytes % (Manual) (0-10) % Nucleated RBC % (0-0) % Platelet Estimate (NORMAL) Hypochromasia (manual) Anisocytosis (manual) Microcytosis (manual) APTT 55 H (21-34) SECONDS Puncture Site pCO2 (35-45) mm/Hg pO2 (80-100) mm/Hg HCO3 (21-28) mmol/L ABG pH (7.35-7.45) ABG Total CO2 (22-28) mmol/L ABG O2 Saturation (95-98) % ABG Base Excess (-2.0-3.0) mmol/L ABG Hemoglobin (11.7-17.4) g/dL ABG Carboxyhemoglobin (0.5-1.5) % POC ABG HHb (Measured) (0.0-5.0) % ABG Methemoglobin (0.0-3.0) % Jose Test A-a O2 Difference mm/Hg Respiratory Index Hgb O2 Saturation (95.0-98.0) % Mechanical Rate FiO2 % Tidal Volume Sodium 142 (132-148) mmol/L Potassium 4.5 (3.6-5.2) mmol/L Chloride 107 (98-107) mmol/L Carbon Dioxide 17 L (22-30) mmol/L Anion Gap 23 H (10-20) BUN 98 H (9-20) mg/dL Creatinine 2.6 H (0.8-1.5) MG/DL Est GFR ( Amer) 30 Est GFR (Non-Af Amer) 24 POC Glucose (mg/dL) 370 H (65-110) mg/dL Random Glucose 433 H* (75-110) mg/dL Calcium 8.2 L (8.6-10.4) mg/dl Phosphorus 4.9 H (2.5-4.5) mg/dL Magnesium 2.7 H (1.6-2.3) mg/dL Total Bilirubin 0.8 (0.2-1.3) mg/dL AST 63 H D (17-59) U/L ALT 176 H D (21-72) U/L Alkaline Phosphatase 155 H (38-126) U/L Total Protein 6.3 (6.3-8.3) g/dL Albumin 2.7 L (3.5-5.0) g/dL Globulin 3.6 (2.2-3.9) gm/dL Albumin/Globulin Ratio 0.8 L (1.0-2.1) 12/05/16 12/05/16 12/04/16 Range/Units 06:37 06:00 23:38 WBC 2.6 L (4.8-10.8) K/uL RBC 3.19 L (4.40-5.90) Mil/uL Hgb 8.3 L (12.0-18.0) g/dL Hct 26.2 L (35.0-51.0) % MCV 82.1 D (80.0-94.0) fL MCH 26.1 L (27.0-31.0) pg MCHC 31.7 L (33.0-37.0) g/dL RDW 26.3 H (11.5-14.5) % Plt Count 231 (130-400) K/uL MPV 10.2 (7.2-11.7) fL Neut % (Auto) 83.6 H (50.0-75.0) % Lymph % (Auto) 7.4 L (20.0-40.0) % [place] % (Auto) 8.8 (0.0-10.0) % Eos % (Auto) 0.0 (0.0-4.0) % Baso % (Auto) 0.2 (0.0-2.0) % Neut # 2.1 (1.8-7.0) K/uL Lymph # 0.2 L (1.0-4.3) K/uL [place] # 0.2 (0.0-0.8) K/uL Eos # 0.0 (0.0-0.7) K/uL Baso # 0.0 (0.0-0.2) K/uL Neutrophils % (Manual) 76 H (50-75) % Band Neutrophils % 4 H (0-2) % Lymphocytes % (Manual) 9 L (20-40) % Monocytes % (Manual) 11 H (0-10) % Nucleated RBC % 1 H (0-0) % Platelet Estimate Normal (NORMAL) Hypochromasia (manual) Slight Anisocytosis (manual) Moderate Microcytosis (manual) Slight APTT (21-34) SECONDS Puncture Site L rad pCO2 29 L (35-45) mm/Hg pO2 77 L (80-100) mm/Hg HCO3 20.2 L (21-28) mmol/L ABG pH 7.40 (7.35-7.45) ABG Total CO2 18.9 L (22-28) mmol/L ABG O2 Saturation 97.3 (95-98) % ABG Base Excess -6.0 L (-2.0-3.0) mmol/L ABG Hemoglobin 8.4 L (11.7-17.4) g/dL ABG Carboxyhemoglobin 2.0 H (0.5-1.5) % POC ABG HHb (Measured) 2.6 (0.0-5.0) % ABG Methemoglobin 1.4 (0.0-3.0) % Jose Test Pos A-a O2 Difference 172.0 mm/Hg Respiratory Index 2.2 Hgb O2 Saturation 93.9 L (95.0-98.0) % Mechanical Rate 20 FiO2 40.0 % Tidal Volume 500 Sodium (132-148) mmol/L Potassium (3.6-5.2) mmol/L Chloride (98-107) mmol/L Carbon Dioxide (22-30) mmol/L Anion Gap (10-20) BUN (9-20) mg/dL Creatinine (0.8-1.5) MG/DL Est GFR ( Amer) Est GFR (Non-Af Amer) POC Glucose (mg/dL) 326 H (65-110) mg/dL Random Glucose (75-110) mg/dL Calcium (8.6-10.4) mg/dl Phosphorus (2.5-4.5) mg/dL Magnesium (1.6-2.3) mg/dL Total Bilirubin (0.2-1.3) mg/dL AST (17-59) U/L ALT (21-72) U/L Alkaline Phosphatase (38-126) U/L Total Protein (6.3-8.3) g/dL Albumin (3.5-5.0) g/dL Globulin (2.2-3.9) gm/dL Albumin/Globulin Ratio (1.0-2.1) 12/04/16 12/04/16 Range/Units 17:58 11:25 WBC (4.8-10.8) K/uL RBC (4.40-5.90) Mil/uL Hgb (12.0-18.0) g/dL Hct (35.0-51.0) % MCV (80.0-94.0) fL MCH (27.0-31.0) pg MCHC (33.0-37.0) g/dL RDW (11.5-14.5) % Plt Count (130-400) K/uL MPV (7.2-11.7) fL Neut % (Auto) (50.0-75.0) % Lymph % (Auto) (20.0-40.0) % [place] % (Auto) (0.0-10.0) % Eos % (Auto) (0.0-4.0) % Baso % (Auto) (0.0-2.0) % Neut # (1.8-7.0) K/uL Lymph # (1.0-4.3) K/uL [place] # (0.0-0.8) K/uL Eos # (0.0-0.7) K/uL Baso # (0.0-0.2) K/uL Neutrophils % (Manual) (50-75) % Band Neutrophils % (0-2) % Lymphocytes % (Manual) (20-40) % Monocytes % (Manual) (0-10) % Nucleated RBC % (0-0) % Platelet Estimate (NORMAL) Hypochromasia (manual) Anisocytosis (manual) Microcytosis (manual) APTT (21-34) SECONDS Puncture Site pCO2 (35-45) mm/Hg pO2 (80-100) mm/Hg HCO3 (21-28) mmol/L ABG pH (7.35-7.45) ABG Total CO2 (22-28) mmol/L ABG O2 Saturation (95-98) % ABG Base Excess (-2.0-3.0) mmol/L ABG Hemoglobin (11.7-17.4) g/dL ABG Carboxyhemoglobin (0.5-1.5) % POC ABG HHb (Measured) (0.0-5.0) % ABG Methemoglobin (0.0-3.0) % Jose Test A-a O2 Difference mm/Hg Respiratory Index Hgb O2 Saturation (95.0-98.0) % Mechanical Rate FiO2 % Tidal Volume Sodium (132-148) mmol/L Potassium (3.6-5.2) mmol/L Chloride (98-107) mmol/L Carbon Dioxide (22-30) mmol/L Anion Gap (10-20) BUN (9-20) mg/dL Creatinine (0.8-1.5) MG/DL Est GFR ( Amer) Est GFR (Non-Af Amer) POC Glucose (mg/dL) 357 H 445 H* (65-110) mg/dL Random Glucose (75-110) mg/dL Calcium (8.6-10.4) mg/dl Phosphorus (2.5-4.5) mg/dL Magnesium (1.6-2.3) mg/dL Total Bilirubin (0.2-1.3) mg/dL AST (17-59) U/L ALT (21-72) U/L Alkaline Phosphatase (38-126) U/L Total Protein (6.3-8.3) g/dL Albumin (3.5-5.0) g/dL Globulin (2.2-3.9) gm/dL Albumin/Globulin Ratio (1.0-2.1) Laboratory Results - last 24 hr 12/04/16 12/04/16 12/04/16 11:25 17:58 23:38 WBC RBC Hgb Hct MCV MCH MCHC RDW Plt Count MPV Neut % (Auto) Lymph % (Auto) [place] % (Auto) Eos % (Auto) Baso % (Auto) Neut # Lymph # [place] # Eos # Baso # Neutrophils % (Manual) Band Neutrophils % Lymphocytes % (Manual) Monocytes % (Manual) Nucleated RBC % Platelet Estimate Hypochromasia (manual) Anisocytosis (manual) Microcytosis (manual) APTT Puncture Site pCO2 pO2 HCO3 ABG pH ABG Total CO2 ABG O2 Saturation ABG Base Excess ABG Hemoglobin ABG Carboxyhemoglobin POC ABG HHb (Measured) ABG Methemoglobin Jose Test A-a O2 Difference Respiratory Index Hgb O2 Saturation Mechanical Rate FiO2 Tidal Volume Sodium Potassium Chloride Carbon Dioxide Anion Gap BUN Creatinine Est GFR ( Amer) Est GFR (Non-Af Amer) POC Glucose (mg/dL) 445 H* 357 H 326 H Random Glucose Calcium Phosphorus Magnesium Total Bilirubin AST ALT Alkaline Phosphatase Total Protein Albumin Globulin Albumin/Globulin Ratio 12/05/16 12/05/16 12/05/16 06:00 06:37 06:37 WBC 2.6 L RBC 3.19 L Hgb 8.3 L Hct 26.2 L MCV 82.1 D MCH 26.1 L MCHC 31.7 L RDW 26.3 H Plt Count 231 MPV 10.2 Neut % (Auto) 83.6 H Lymph % (Auto) 7.4 L [place] % (Auto) 8.8 Eos % (Auto) 0.0 Baso % (Auto) 0.2 Neut # 2.1 Lymph # 0.2 L [place] # 0.2 Eos # 0.0 Baso # 0.0 Neutrophils % (Manual) 76 H Band Neutrophils % 4 H Lymphocytes % (Manual) 9 L Monocytes % (Manual) 11 H Nucleated RBC % 1 H Platelet Estimate Normal Hypochromasia (manual) Slight Anisocytosis (manual) Moderate Microcytosis (manual) Slight APTT Puncture Site L rad pCO2 29 L pO2 77 L HCO3 20.2 L ABG pH 7.40 ABG Total CO2 18.9 L ABG O2 Saturation 97.3 ABG Base Excess -6.0 L ABG Hemoglobin 8.4 L ABG Carboxyhemoglobin 2.0 H POC ABG HHb (Measured) 2.6 ABG Methemoglobin 1.4 Jose Test Pos A-a O2 Difference 172.0 Respiratory Index 2.2 Hgb O2 Saturation 93.9 L Mechanical Rate 20 FiO2 40.0 Tidal Volume 500 Sodium 142 Potassium 4.5 Chloride 107 Carbon Dioxide 17 L Anion Gap 23 H BUN 98 H Creatinine 2.6 H Est GFR ( Amer) 30 Est GFR (Non-Af Amer) 24 POC Glucose (mg/dL) Random Glucose 433 H* Calcium 8.2 L Phosphorus 4.9 H Magnesium 2.7 H Total Bilirubin 0.8 AST 63 H D ALT 176 H D Alkaline Phosphatase 155 H Total Protein 6.3 Albumin 2.7 L Globulin 3.6 Albumin/Globulin Ratio 0.8 L 12/05/16 12/05/16 06:37 06:47 WBC RBC Hgb Hct MCV MCH MCHC RDW Plt Count MPV Neut % (Auto) Lymph % (Auto) [place] % (Auto) Eos % (Auto) Baso % (Auto) Neut # Lymph # [place] # Eos # Baso # Neutrophils % (Manual) Band Neutrophils % Lymphocytes % (Manual) Monocytes % (Manual) Nucleated RBC % Platelet Estimate Hypochromasia (manual) Anisocytosis (manual) Microcytosis (manual) APTT 55 H Puncture Site pCO2 pO2 HCO3 ABG pH ABG Total CO2 ABG O2 Saturation ABG Base Excess ABG Hemoglobin ABG Carboxyhemoglobin POC ABG HHb (Measured) ABG Methemoglobin Jose Test A-a O2 Difference Respiratory Index Hgb O2 Saturation Mechanical Rate FiO2 Tidal Volume Sodium Potassium Chloride Carbon Dioxide Anion Gap BUN Creatinine Est GFR ( Amer) Est GFR (Non-Af Amer) POC Glucose (mg/dL) 370 H Random Glucose Calcium Phosphorus Magnesium Total Bilirubin AST ALT Alkaline Phosphatase Total Protein Albumin Globulin Albumin/Globulin Ratio Fingerstick Blood Sugar Results: 370 Review of Systems - Review of Systems Systems not reviewed;Unavailable: Intubated Assessment/Plan (1) CHF (congestive heart failure) Assessment and plan: 71-year-old male with history of COPD hypertension, CAD, heart failure, acute non-ST elevation CT complicated with the cardiac shock now. Neuro: Sedated with Propofol Pulm: Intubated CV: Patient is in cardiac shock - per Dr. Snyder pt is not stable for cardiac cath Admitted with NSTEMI Cardio Consult: Dr. Snyder and Dr. Apple --> help appreciated Repeat ECHO showed EF of 20-25%, systolic dysfunction Heme Neutropenia secondary to Myelodysplastic Syndrome Heme/Onc Consult: Dr. Knutson --> help appreciated GI: No acute issues Renal: CKD Endo: Diabetes Accuchecks/Insulin Sliding Scale was increased to high protocol Glucose elevated secondary to methylprednisolone - discontinued 12/05 Monitor ID: Methicillin Resistant S. Aureus - Blood Culture Gram negative luis - Wound Culture (right ankle) - preliminary Tigecycline started 12/05 Cefepime started 12/04 ID Consult: Dr. Landry --> help appreciated MSK: Right Ankle X-ray: Soft tissue ulceration over anterior and medial aspect of the ankle. Periosteal reaction, smooth, along distal tibial diaphysis to the medial malleolus. Uncertain significance but the possibility of osteomyelitis must be considered. Possible nonunion of old fracture distal medial tibia, unchanged. DVT proph: SCDs, heparin drip GI Proph: Pepcid 20mg IVP Daily Code Status: full code Case discussed with Dr. Cody Johnson PGY-1 Current Visit: Yes Status: Chronic <Eddy Ross S - Last Filed: 12/05/16 17:05> CCU Objective - Vital Signs / Intake & Output Vital Signs (Last 4 hours): Vital Signs Pulse Resp BP Pulse Ox 12/05/16 16:00 73 21 85/46 L 95 12/05/16 15:00 69 22 87/47 L 95 12/05/16 14:00 77 25 H 105/59 L 92 L Intake and Output (Last 8hrs): Intake & Output 12/05/16 12/05/16 12/05/16 06:59 14:59 22:59 Intake Total 850.4 278.3 Output Total 400 Balance 450.4 278.3 Weight 144 lb 13.499 oz Intake: IV 420 225 Intake, IV Amount 270.4 33.3 Left Wrist 105.6 13.2 Left Wrist Y-site 84.8 10.1 Right Forearm 80 10 Tube Feeding 160 20 Output: Urine 400 Urethral (Powell) 400 - Medications Active Medications: Active Medications Generic Name Dose Route Start Last Admin Trade Name Freq PRN Reason Stop Dose Admin Albuterol/Ipratropium 3 ml 12/01/16 08:00 12/05/16 13:40 Duoneb 3 Mg/0.5 Mg (3 Ml) Ud INH 3 ml RQ6 LOUANN Administration Aspirin 300 mg 12/02/16 10:00 12/05/16 10:21 Aspirin Supp W[place] 300 mg DAILY LOUANN Administration Famotidine 20 mg 12/01/16 10:00 12/05/16 10:25 Pepcid IVP 20 mg DAILY LOUANN Administration Heparin Sodium/Sodium Chloride 25,000 units in 250 mls @ 7.947 mls/hr 10:04 12/05/16 00:45 Heparin 92658 Units/250ml 1/2 Normal Saline IV 20 units/kg/hr .Q24H PRN 13.245 mls/hr PROTOCOL Administration Protocol 12 UNITS/KG/HR Propofol 1,000 mg in 100 mls @ 2.01 mls/hr 12/04/16 08:54 12/05/16 08:58 Diprivan IV 20 mcg/kg/min .Q24H PRN 8.04 mls/hr TITRATE PER MD ORDER Administration Protocol 5 MCG/KG/MIN Diltiazem HCl 125 mg/ Sodium 125 mls @ 5 mls/hr 12/04/16 13:00 12/05/16 14:19 Chloride IV 10 mg/hr .Q24H LOUANN 10 mls/hr Protocol Administration 5 MG/HR Daptomycin 360 mg/ Sodium 100 mls @ 100 mls/hr 12/04/16 18:00 12/04/16 17:24 Chloride IV 12/09/16 18:01 100 mls/hr Q48H LOUANN Administration Tigecycline 50 mg/ Dextrose 100 mls @ 100 mls/hr 12/05/16 17:00 IVPB Q12H LOUANN Cefepime HCl 1 gm/ Dextrose 50 mls @ 100 mls/hr 12/04/16 19:00 12/04/16 20:15 IVPB 100 mls/hr Q24H LOUANN Administration Insulin Human Regular 0 unit 12/05/16 09:30 12/05/16 13:00 Novolin R SC 12 unit Q6 LOUANN Administration Protocol Metoprolol Tartrate 2.5 mg 12/01/16 22:00 12/05/16 14:23 Lopressor IVP 2.5 mg Q8 LOUANN Administration Nicotine 1 patch 12/03/16 10:00 12/05/16 10:21 Nicoderm Cq TD 1 patch DAILY LOUANN Administration Nitroglycerin 1 ea 12/01/16 12:00 12/05/16 12:54 Nitro-Bid 2% Oint TOP Not Given Q6 [facility] - Patient Studies Lab Studies: Microbiology Studies 12/01/16 16:00 Blood Culture - Preliminary Blood NO GROWTH AFTER 4 DAYS 12/01/16 16:00 S.aureus & Coag-Neg Staph PNA FISH - Final Blood Blood Culture - Preliminary Methicillin Resistant S Aureus Gram Stain - Final 12/03/16 Unknown Gram Stain - Final Ankle - Right Wound Culture - Preliminary Gram Negative Luis Lab Studies 12/05/16 12/05/16 12/05/16 Range/Units 11:39 06:47 06:37 WBC (4.8-10.8) K/uL RBC (4.40-5.90) Mil/uL Hgb (12.0-18.0) g/dL Hct (35.0-51.0) % MCV (80.0-94.0) fL MCH (27.0-31.0) pg MCHC (33.0-37.0) g/dL RDW (11.5-14.5) % Plt Count (130-400) K/uL MPV (7.2-11.7) fL Neut % (Auto) (50.0-75.0) % Lymph % (Auto) (20.0-40.0) % [place] % (Auto) (0.0-10.0) % Eos % (Auto) (0.0-4.0) % Baso % (Auto) (0.0-2.0) % Neut # (1.8-7.0) K/uL Lymph # (1.0-4.3) K/uL [place] # (0.0-0.8) K/uL Eos # (0.0-0.7) K/uL Baso # (0.0-0.2) K/uL Neutrophils % (Manual) (50-75) % Band Neutrophils % (0-2) % Lymphocytes % (Manual) (20-40) % Monocytes % (Manual) (0-10) % Nucleated RBC % (0-0) % Platelet Estimate (NORMAL) Hypochromasia (manual) Anisocytosis (manual) Microcytosis (manual) APTT 55 H (21-34) SECONDS Puncture Site pCO2 (35-45) mm/Hg pO2 (80-100) mm/Hg HCO3 (21-28) mmol/L ABG pH (7.35-7.45) ABG Total CO2 (22-28) mmol/L ABG O2 Saturation (95-98) % ABG Base Excess (-2.0-3.0) mmol/L ABG Hemoglobin (11.7-17.4) g/dL ABG Carboxyhemoglobin (0.5-1.5) % POC ABG HHb (Measured) (0.0-5.0) % ABG Methemoglobin (0.0-3.0) % Jose Test A-a O2 Difference mm/Hg Respiratory Index Hgb O2 Saturation (95.0-98.0) % Mechanical Rate FiO2 % Tidal Volume Sodium (132-148) mmol/L Potassium (3.6-5.2) mmol/L Chloride (98-107) mmol/L Carbon Dioxide (22-30) mmol/L Anion Gap (10-20) BUN (9-20) mg/dL Creatinine (0.8-1.5) MG/DL Est GFR ( Amer) Est GFR (Non-Af Amer) POC Glucose (mg/dL) 366 H 370 H (65-110) mg/dL Random Glucose (75-110) mg/dL Calcium (8.6-10.4) mg/dl Phosphorus (2.5-4.5) mg/dL Magnesium (1.6-2.3) mg/dL Total Bilirubin (0.2-1.3) mg/dL AST (17-59) U/L ALT (21-72) U/L Alkaline Phosphatase (38-126) U/L Total Protein (6.3-8.3) g/dL Albumin (3.5-5.0) g/dL Globulin (2.2-3.9) gm/dL Albumin/Globulin Ratio (1.0-2.1) 12/05/16 12/05/16 12/05/16 Range/Units 06:37 06:37 06:00 WBC 2.6 L (4.8-10.8) K/uL RBC 3.19 L (4.40-5.90) Mil/uL Hgb 8.3 L (12.0-18.0) g/dL Hct 26.2 L (35.0-51.0) % MCV 82.1 D (80.0-94.0) fL MCH 26.1 L (27.0-31.0) pg MCHC 31.7 L (33.0-37.0) g/dL RDW 26.3 H (11.5-14.5) % Plt Count 231 (130-400) K/uL MPV 10.2 (7.2-11.7) fL Neut % (Auto) 83.6 H (50.0-75.0) % Lymph % (Auto) 7.4 L (20.0-40.0) % [place] % (Auto) 8.8 (0.0-10.0) % Eos % (Auto) 0.0 (0.0-4.0) % Baso % (Auto) 0.2 (0.0-2.0) % Neut # 2.1 (1.8-7.0) K/uL Lymph # 0.2 L (1.0-4.3) K/uL [place] # 0.2 (0.0-0.8) K/uL Eos # 0.0 (0.0-0.7) K/uL Baso # 0.0 (0.0-0.2) K/uL Neutrophils % (Manual) 76 H (50-75) % Band Neutrophils % 4 H (0-2) % Lymphocytes % (Manual) 9 L (20-40) % Monocytes % (Manual) 11 H (0-10) % Nucleated RBC % 1 H (0-0) % Platelet Estimate Normal (NORMAL) Hypochromasia (manual) Slight Anisocytosis (manual) Moderate Microcytosis (manual) Slight APTT (21-34) SECONDS Puncture Site L rad pCO2 29 L (35-45) mm/Hg pO2 77 L (80-100) mm/Hg HCO3 20.2 L (21-28) mmol/L ABG pH 7.40 (7.35-7.45) ABG Total CO2 18.9 L (22-28) mmol/L ABG O2 Saturation 97.3 (95-98) % ABG Base Excess -6.0 L (-2.0-3.0) mmol/L ABG Hemoglobin 8.4 L (11.7-17.4) g/dL ABG Carboxyhemoglobin 2.0 H (0.5-1.5) % POC ABG HHb (Measured) 2.6 (0.0-5.0) % ABG Methemoglobin 1.4 (0.0-3.0) % Jose Test Pos A-a O2 Difference 172.0 mm/Hg Respiratory Index 2.2 Hgb O2 Saturation 93.9 L (95.0-98.0) % Mechanical Rate 20 FiO2 40.0 % Tidal Volume 500 Sodium 142 (132-148) mmol/L Potassium 4.5 (3.6-5.2) mmol/L Chloride 107 (98-107) mmol/L Carbon Dioxide 17 L (22-30) mmol/L Anion Gap 23 H (10-20) BUN 98 H (9-20) mg/dL Creatinine 2.6 H (0.8-1.5) MG/DL Est GFR ( Amer) 30 Est GFR (Non-Af Amer) 24 POC Glucose (mg/dL) (65-110) mg/dL Random Glucose 433 H* (75-110) mg/dL Calcium 8.2 L (8.6-10.4) mg/dl Phosphorus 4.9 H (2.5-4.5) mg/dL Magnesium 2.7 H (1.6-2.3) mg/dL Total Bilirubin 0.8 (0.2-1.3) mg/dL AST 63 H D (17-59) U/L ALT 176 H D (21-72) U/L Alkaline Phosphatase 155 H (38-126) U/L Total Protein 6.3 (6.3-8.3) g/dL Albumin 2.7 L (3.5-5.0) g/dL Globulin 3.6 (2.2-3.9) gm/dL Albumin/Globulin Ratio 0.8 L (1.0-2.1) 12/04/16 12/04/16 Range/Units 23:38 17:58 WBC (4.8-10.8) K/uL RBC (4.40-5.90) Mil/uL Hgb (12.0-18.0) g/dL Hct (35.0-51.0) % MCV (80.0-94.0) fL MCH (27.0-31.0) pg MCHC (33.0-37.0) g/dL RDW (11.5-14.5) % Plt Count (130-400) K/uL MPV (7.2-11.7) fL Neut % (Auto) (50.0-75.0) % Lymph % (Auto) (20.0-40.0) % [place] % (Auto) (0.0-10.0) % Eos % (Auto) (0.0-4.0) % Baso % (Auto) (0.0-2.0) % Neut # (1.8-7.0) K/uL Lymph # (1.0-4.3) K/uL [place] # (0.0-0.8) K/uL Eos # (0.0-0.7) K/uL Baso # (0.0-0.2) K/uL Neutrophils % (Manual) (50-75) % Band Neutrophils % (0-2) % Lymphocytes % (Manual) (20-40) % Monocytes % (Manual) (0-10) % Nucleated RBC % (0-0) % Platelet Estimate (NORMAL) Hypochromasia (manual) Anisocytosis (manual) Microcytosis (manual) APTT (21-34) SECONDS Puncture Site pCO2 (35-45) mm/Hg pO2 (80-100) mm/Hg HCO3 (21-28) mmol/L ABG pH (7.35-7.45) ABG Total CO2 (22-28) mmol/L ABG O2 Saturation (95-98) % ABG Base Excess (-2.0-3.0) mmol/L ABG Hemoglobin (11.7-17.4) g/dL ABG Carboxyhemoglobin (0.5-1.5) % POC ABG HHb (Measured) (0.0-5.0) % ABG Methemoglobin (0.0-3.0) % Jose Test A-a O2 Difference mm/Hg Respiratory Index Hgb O2 Saturation (95.0-98.0) % Mechanical Rate FiO2 % Tidal Volume Sodium (132-148) mmol/L Potassium (3.6-5.2) mmol/L Chloride (98-107) mmol/L Carbon Dioxide (22-30) mmol/L Anion Gap (10-20) BUN (9-20) mg/dL Creatinine (0.8-1.5) MG/DL Est GFR ( Amer) Est GFR (Non-Af Amer) POC Glucose (mg/dL) 326 H 357 H (65-110) mg/dL Random Glucose (75-110) mg/dL Calcium (8.6-10.4) mg/dl Phosphorus (2.5-4.5) mg/dL Magnesium (1.6-2.3) mg/dL Total Bilirubin (0.2-1.3) mg/dL AST (17-59) U/L ALT (21-72) U/L Alkaline Phosphatase (38-126) U/L Total Protein (6.3-8.3) g/dL Albumin (3.5-5.0) g/dL Globulin (2.2-3.9) gm/dL Albumin/Globulin Ratio (1.0-2.1) Laboratory Results - last 24 hr 12/04/16 12/04/16 12/05/16 17:58 23:38 06:00 WBC RBC Hgb Hct MCV MCH MCHC RDW Plt Count MPV Neut % (Auto) Lymph % (Auto) [place] % (Auto) Eos % (Auto) Baso % (Auto) Neut # Lymph # [place] # Eos # Baso # Neutrophils % (Manual) Band Neutrophils % Lymphocytes % (Manual) Monocytes % (Manual) Nucleated RBC % Platelet Estimate Hypochromasia (manual) Anisocytosis (manual) Microcytosis (manual) APTT Puncture Site L rad pCO2 29 L pO2 77 L HCO3 20.2 L ABG pH 7.40 ABG Total CO2 18.9 L ABG O2 Saturation 97.3 ABG Base Excess -6.0 L ABG Hemoglobin 8.4 L ABG Carboxyhemoglobin 2.0 H POC ABG HHb (Measured) 2.6 ABG Methemoglobin 1.4 Jose Test Pos A-a O2 Difference 172.0 Respiratory Index 2.2 Hgb O2 Saturation 93.9 L Mechanical Rate 20 FiO2 40.0 Tidal Volume 500 Sodium Potassium Chloride Carbon Dioxide Anion Gap BUN Creatinine Est GFR ( Amer) Est GFR (Non-Af Amer) POC Glucose (mg/dL) 357 H 326 H Random Glucose Calcium Phosphorus Magnesium Total Bilirubin AST ALT Alkaline Phosphatase Total Protein Albumin Globulin Albumin/Globulin Ratio 12/05/16 12/05/16 12/05/16 06:37 06:37 06:37 WBC 2.6 L RBC 3.19 L Hgb 8.3 L Hct 26.2 L MCV 82.1 D MCH 26.1 L MCHC 31.7 L RDW 26.3 H Plt Count 231 MPV 10.2 Neut % (Auto) 83.6 H Lymph % (Auto) 7.4 L [place] % (Auto) 8.8 Eos % (Auto) 0.0 Baso % (Auto) 0.2 Neut # 2.1 Lymph # 0.2 L [place] # 0.2 Eos # 0.0 Baso # 0.0 Neutrophils % (Manual) 76 H Band Neutrophils % 4 H Lymphocytes % (Manual) 9 L Monocytes % (Manual) 11 H Nucleated RBC % 1 H Platelet Estimate Normal Hypochromasia (manual) Slight Anisocytosis (manual) Moderate Microcytosis (manual) Slight APTT 55 H Puncture Site pCO2 pO2 HCO3 ABG pH ABG Total CO2 ABG O2 Saturation ABG Base Excess ABG Hemoglobin ABG Carboxyhemoglobin POC ABG HHb (Measured) ABG Methemoglobin Jose Test A-a O2 Difference Respiratory Index Hgb O2 Saturation Mechanical Rate FiO2 Tidal Volume Sodium 142 Potassium 4.5 Chloride 107 Carbon Dioxide 17 L Anion Gap 23 H BUN 98 H Creatinine 2.6 H Est GFR ( Amer) 30 Est GFR (Non-Af Amer) 24 POC Glucose (mg/dL) Random Glucose 433 H* Calcium 8.2 L Phosphorus 4.9 H Magnesium 2.7 H Total Bilirubin 0.8 AST 63 H D ALT 176 H D Alkaline Phosphatase 155 H Total Protein 6.3 Albumin 2.7 L Globulin 3.6 Albumin/Globulin Ratio 0.8 L 12/05/16 12/05/16 06:47 11:39 WBC RBC Hgb Hct MCV MCH MCHC RDW Plt Count MPV Neut % (Auto) Lymph % (Auto) [place] % (Auto) Eos % (Auto) Baso % (Auto) Neut # Lymph # [place] # Eos # Baso # Neutrophils % (Manual) Band Neutrophils % Lymphocytes % (Manual) Monocytes % (Manual) Nucleated RBC % Platelet Estimate Hypochromasia (manual) Anisocytosis (manual) Microcytosis (manual) APTT Puncture Site pCO2 pO2 HCO3 ABG pH ABG Total CO2 ABG O2 Saturation ABG Base Excess ABG Hemoglobin ABG Carboxyhemoglobin POC ABG HHb (Measured) ABG Methemoglobin Jose Test A-a O2 Difference Respiratory Index Hgb O2 Saturation Mechanical Rate FiO2 Tidal Volume Sodium Potassium Chloride Carbon Dioxide Anion Gap BUN Creatinine Est GFR ( Amer) Est GFR (Non-Af Amer) POC Glucose (mg/dL) 370 H 366 H Random Glucose Calcium Phosphorus Magnesium Total Bilirubin AST ALT Alkaline Phosphatase Total Protein Albumin Globulin Albumin/Globulin Ratio Attending/Attestation - Attestation I have personally seen and examined this patient.: Yes I have fully participated in the care of the patient.: Yes I have reviewed all pertinent clinical information: Yes Notes (Text): 12/05/16 17:04 Patient seen and examined in the intensive care unit. Case discussed with house staff in the morning rounds. Remains intubated on ventilatory support, FiO2 increased to 60% Sedated Continue antibiotics as per infectious disease PICC line discontinued Daughter refused triple lumen catheter are PICC line in the left arm Continue present treatment
--- NOTE | 2016-12-05 11:11 | CP.PCM.PN ---
Subjective - Date & Time of Evaluation Date of Evaluation: 12/05/16 Time of Evaluation: 14:00 - Subjective Subjective: clinically same Objective - Vital Signs/Intake and Output Vital Signs (last 24 hours): Temp Pulse Resp BP Pulse Ox 98.8 F 74 26 H 90/51 L 95 12/05/16 04:00 12/05/16 07:00 12/05/16 07:00 12/05/16 07:00 12/05/16 07:00 Intake and Output: 12/05/16 12/05/16 06:59 18:59 Intake Total 1266.7 153.3 Output Total 580 Balance 686.7 153.3 - Medications Medications: Current Medications Albuterol/Ipratropium (Duoneb 3 Mg/0.5 Mg (3 Ml) Ud) 3 ml INH RQ6 [facility] Last Admin: 12/05/16 07:28 Dose: 3 ml Aspirin (Aspirin Supp) 300 mg [place] DAILY [facility] Last Admin: 12/05/16 10:21 Dose: 300 mg Famotidine (Pepcid) 20 mg IVP DAILY [facility] Last Admin: 12/05/16 10:25 Dose: 20 mg Heparin Sodium/Sodium Chloride (Heparin 42418 Units/250ml 1/2 Normal Saline) 25 ,000 units in 250 mls @ 7.947 mls/hr IV .Q24H PRN; Protocol; 12 UNITS/KG/HR PRN Reason: PROTOCOL Last Admin: 12/05/16 00:45 Dose: 20 units/kg/hr, 13.245 mls/hr Propofol (Diprivan) 1,000 mg in 100 mls @ 2.01 mls/hr IV .Q24H PRN; Protocol; 5 MCG/KG/MIN PRN Reason: TITRATE PER MD ORDER Last Admin: 12/05/16 08:58 Dose: 20 mcg/kg/min, 8.04 mls/hr Diltiazem HCl 125 mg/ Sodium (Chloride) 125 mls @ 5 mls/hr IV .Q24H [facility]; 5 MG/ HR PRN Reason: Protocol Last Admin: 12/05/16 05:10 Dose: 10 mg/hr, 10 mls/hr Daptomycin 360 mg/ Sodium (Chloride) 100 mls @ 100 mls/hr IV Q48H [facility] Stop: 12/09/16 18:01 Last Admin: 12/04/16 17:24 Dose: 100 mls/hr Tigecycline 50 mg/ Dextrose 100 mls @ 100 mls/hr IVPB Q12H [facility] Cefepime HCl 1 gm/ Dextrose 50 mls @ 100 mls/hr IVPB Q24H [facility] Last Admin: 12/04/16 20:15 Dose: 100 mls/hr Insulin Human Regular (Novolin R) 0 unit SC Q6 [facility] PRN Reason: Protocol Last Admin: 12/05/16 10:20 Dose: Not Given Metoprolol Tartrate (Lopressor) 2.5 mg IVP Q8 [facility] Last Admin: 12/05/16 06:40 Dose: 2.5 mg Nicotine (Nicoderm Cq) 1 patch TD DAILY [facility] Last Admin: 12/05/16 10:21 Dose: 1 patch Nitroglycerin (Nitro-Bid 2% Oint) 1 ea TOP Q6 [facility] Last Admin: 12/05/16 06:00 Dose: Not Given - Labs Labs: 12/05/16 06:37 12/05/16 06:37 PT 13.7 SECONDS (9.7-12.2) H 12/01/16 02:35 INR 1.2 12/01/16 02:35 APTT 55 SECONDS (21-34) H 12/05/16 06:37 - Constitutional Appears: Well - Head Exam Head Exam: ATRAUMATIC, NORMAL INSPECTION, NORMOCEPHALIC - Eye Exam Eye Exam: EOMI, Normal appearance, PERRL Pupil Exam: NORMAL ACCOMODATION, PERRL - ENT Exam ENT Exam: Mucous Membranes Moist, Normal Exam - Neck Exam Neck Exam: Full ROM, Normal Inspection. absent: Lymphadenopathy - Respiratory Exam Respiratory Exam: Decreased Breath Sounds - Cardiovascular Exam Cardiovascular Exam: REGULAR RHYTHM, +S1, +S2 - GI/Abdominal Exam GI & Abdominal Exam: Soft, Diminished Bowel Sounds - Rectal Exam Rectal Exam: Deferred Assessment and Plan (1) Acute respiratory failure Status: Acute (2) Anemia Status: Acute (3) Bacteremia due to methicillin resistant Staphylococcus aureus Status: Acute (4) Chest pain Status: Acute (5) Coagulopathy Status: Acute (6) Diabetes mellitus with ulcer of ankle Status: Acute (7) Diabetes mellitus, new onset Status: Acute (8) Dyspnea Status: Acute (9) Gastrointestinal hemorrhage Status: Acute (10) Infected ulcer of skin Status: Acute (11) MDS (myelodysplastic syndrome) Status: Acute (12) Neutropenia Status: Acute (13) Non-STEMI (non-ST elevated myocardial infarction) Status: Acute (14) Non-healing ulcer of foot Status: Acute (15) PAD (peripheral artery disease) Status: Acute (16) Pancytopenia Status: Acute (17) Pneumonia Status: Acute (18) Pneumonia Status: Acute (19) Prophylactic measure Status: Acute (20) Sepsis Status: Acute (21) CAD (coronary artery disease) Status: Chronic (22) CHF (congestive heart failure) Status: Chronic (23) Diabetes mellitus Status: Chronic - Assessment and Plan (Free Text) Plan: Patient seen and examined at bedside Intubated and sedated Discussed with family Poor condition explained Dr. Knutson Accu-Chetimothy Insulin Antibiotics Aspirin DuoNeb Follow-up with labs
--- NOTE | 2016-12-05 14:17 | RAD ---
PROCEDURE: CHEST RADIOGRAPH, 1 VIEW HISTORY: vent COMPARISON: 12/04/2016 FINDINGS: LUNGS: Opacity at medial right lung base has decreased compared to the prior examination. No other abnormal opacity elsewhere. PLEURA: No pneumothorax or pleural fluid seen. CARDIOVASCULAR: Normal heart size. ET tube and NG tube unchanged. OSSEOUS STRUCTURES: No significant abnormalities. VISUALIZED UPPER ABDOMEN: Normal. OTHER FINDINGS: None. IMPRESSION: Improving opacity medial right lung base. Lines and tubes unchanged.
--- NOTE | 2016-12-05 14:55 | CARD ---
APPROVED REPORT EKG Measurement Heart [id number] OR 208P [id number] <Conclusion> Sinus tachycardia with premature atrial complexes Left axis deviation Incomplete right bundle branch block Anteroseptal infarct, age undetermined Marked ST abnormality. Abnormal ECG
--- NOTE | 2016-12-05 15:01 | RAD ---
HISTORY: desaturating COMPARISON: 12/04/2016 FINDINGS: LUNGS: There is pulmonary venous congestion. PLEURA: There is interval development of opacity in the left lower lobe. There is no large right pleural effusion. No pneumothorax CARDIOVASCULAR: Normal. OSSEOUS STRUCTURES: No significant abnormalities. VISUALIZED UPPER ABDOMEN: Normal. OTHER FINDINGS: None. IMPRESSION: Interval development of left lower lobe atelectasis/ pneumonia/pleural effusion. Follow-up PA and lateral chest radiographs are recommended.
--- NOTE | 2016-12-05 15:55 | CP.PCM.PCO ---
Physician Communication Note - Physician Communication Note Physician Communication Note: patient's daughter cancelld family meeting until saturday
[2016-12-05] MEDS: (Lantus) Insulin Glargine, Recombinant SC SCH (18:45)
[2016-12-05] MEDS: Tigecycline 50 MG in Dextrose 5% In Water 100 ML IVPB SCH (18:46)
--- NOTE | 2016-12-05 20:11 | CP.PCM.PN ---
Subjective - Date & Time of Evaluation Date of Evaluation: 12/05/16 Time of Evaluation: 06:00 - Subjective Subjective: dictated Objective - Vital Signs/Intake and Output Vital Signs (last 24 hours): Temp Pulse Resp BP Pulse Ox 97.6 F 79 23 84/46 L 94 L 12/05/16 12:00 12/05/16 18:00 12/05/16 18:00 12/05/16 18:00 12/05/16 18:00 Intake and Output: 12/05/16 12/06/16 18:59 06:59 Intake Total 577.5 88 Output Total 320 Balance 257.5 88 - Medications Medications: Current Medications Albuterol/Ipratropium (Duoneb 3 Mg/0.5 Mg (3 Ml) Ud) 3 ml INH RQ6 [facility] Last Admin: 12/05/16 13:40 Dose: 3 ml Aspirin (Aspirin Supp) 300 mg [place] DAILY [facility] Last Admin: 12/05/16 10:21 Dose: 300 mg Famotidine (Pepcid) 20 mg IVP DAILY [facility] Last Admin: 12/05/16 10:25 Dose: 20 mg Heparin Sodium/Sodium Chloride (Heparin 65285 Units/250ml 1/2 Normal Saline) 25 ,000 units in 250 mls @ 7.947 mls/hr IV .Q24H PRN; Protocol; 12 UNITS/KG/HR PRN Reason: PROTOCOL Last Admin: 12/05/16 00:45 Dose: 20 units/kg/hr, 13.245 mls/hr Propofol (Diprivan) 1,000 mg in 100 mls @ 2.01 mls/hr IV .Q24H PRN; Protocol; 5 MCG/KG/MIN PRN Reason: TITRATE PER MD ORDER Last Titration: 12/05/16 19:40 Dose: 0 mcg/kg/min, 0 mls/hr Diltiazem HCl 125 mg/ Sodium (Chloride) 125 mls @ 5 mls/hr IV .Q24H [facility]; 5 MG/ HR PRN Reason: Protocol Last Admin: 12/05/16 14:19 Dose: 10 mg/hr, 10 mls/hr Daptomycin 360 mg/ Sodium (Chloride) 100 mls @ 100 mls/hr IV Q48H [facility] Stop: 12/09/16 18:01 Last Admin: 12/04/16 17:24 Dose: 100 mls/hr Tigecycline 50 mg/ Dextrose 100 mls @ 100 mls/hr IVPB Q12H [facility] Last Admin: 12/05/16 18:46 Dose: 100 mls/hr Cefepime HCl 1 gm/ Dextrose 50 mls @ 100 mls/hr IVPB Q24H [facility] Last Admin: 12/04/16 20:15 Dose: 100 mls/hr Insulin Glargine (Lantus) 10 unit SC Q12H [facility] Last Admin: 12/05/16 18:45 Dose: 10 u Insulin Human Regular (Novolin R) 0 unit SC Q6 [facility] PRN Reason: Protocol Last Admin: 12/05/16 18:45 Dose: 12 unit Metoprolol Tartrate (Lopressor) 2.5 mg IVP Q8 [facility] Last Admin: 12/05/16 14:23 Dose: 2.5 mg Nicotine (Nicoderm Cq) 1 patch TD DAILY [facility] Last Admin: 12/05/16 10:21 Dose: 1 patch Nitroglycerin (Nitro-Bid 2% Oint) 1 ea TOP Q6 [facility] Last Admin: 12/05/16 12:54 Dose: Not Given - Labs Labs: 12/05/16 06:37 12/05/16 06:37 PT 13.7 SECONDS (9.7-12.2) H 12/01/16 02:35 INR 1.2 12/01/16 02:35 APTT 55 SECONDS (21-34) H 12/05/16 06:37 Assessment and Plan (1) Coagulopathy Status: Acute (2) Dyspnea Status: Acute (3) MDS (myelodysplastic syndrome) Status: Acute (4) Neutropenia Status: Acute (5) Non-STEMI (non-ST elevated myocardial infarction) Status: Acute (6) Pneumonia Status: Acute (7) Sepsis Status: Acute (8) CHF (congestive heart failure) Status: Chronic (9) Bacteremia due to methicillin resistant Staphylococcus aureus Status: Acute (10) Non-healing ulcer of foot Status: Acute
--- NOTE | 2016-12-05 22:22 | CP.PCM.PN ---
Subjective - Date & Time of Evaluation Date of Evaluation: 12/05/16 Time of Evaluation: 11:20 - Subjective Subjective: Patient seen and evaluated Intubated and sedated CAD s/p Non STEMI Continue medical mgt for now Objective - Vital Signs/Intake and Output Vital Signs (last 24 hours): Temp Pulse Resp BP Pulse Ox 97.9 F 86 24 125/71 96 12/05/16 20:00 12/05/16 20:59 12/05/16 20:59 12/05/16 21:00 12/05/16 20:59 Intake and Output: 12/05/16 12/06/16 18:59 06:59 Intake Total 598.7 385.6 Output Total 325 10 Balance 273.7 375.6 - Medications Medications: Current Medications Albuterol/Ipratropium (Duoneb 3 Mg/0.5 Mg (3 Ml) Ud) 3 ml INH RQ6 [facility] Last Admin: 12/05/16 20:18 Dose: 3 ml Aspirin (Aspirin Supp) 300 mg [place] DAILY [facility] Last Admin: 12/05/16 10:21 Dose: 300 mg Famotidine (Pepcid) 20 mg IVP DAILY [facility] Last Admin: 12/05/16 10:25 Dose: 20 mg Heparin Sodium/Sodium Chloride (Heparin 59741 Units/250ml 1/2 Normal Saline) 25 ,000 units in 250 mls @ 7.947 mls/hr IV .Q24H PRN; Protocol; 12 UNITS/KG/HR PRN Reason: PROTOCOL Last Admin: 12/05/16 21:15 Dose: 20 units/kg/hr, 13.245 mls/hr Propofol (Diprivan) 1,000 mg in 100 mls @ 2.01 mls/hr IV .Q24H PRN; Protocol; 5 MCG/KG/MIN PRN Reason: TITRATE PER MD ORDER Last Titration: 12/05/16 19:40 Dose: 0 mcg/kg/min, 0 mls/hr Diltiazem HCl 125 mg/ Sodium (Chloride) 125 mls @ 5 mls/hr IV .Q24H [facility]; 5 MG/ HR PRN Reason: Protocol Last Admin: 12/05/16 14:19 Dose: 10 mg/hr, 10 mls/hr Daptomycin 360 mg/ Sodium (Chloride) 100 mls @ 100 mls/hr IV Q48H [facility] Stop: 12/09/16 18:01 Last Admin: 12/04/16 17:24 Dose: 100 mls/hr Tigecycline 50 mg/ Dextrose 100 mls @ 100 mls/hr IVPB Q12H [facility] Last Admin: 12/05/16 18:46 Dose: 100 mls/hr Cefepime HCl 1 gm/ Dextrose 50 mls @ 100 mls/hr IVPB Q24H [facility] Last Admin: 12/05/16 20:00 Dose: 100 mls/hr Insulin Glargine (Lantus) 10 unit SC Q12H [facility] Last Admin: 12/05/16 18:45 Dose: 10 u Insulin Human Regular (Novolin R) 0 unit SC Q6 [facility] PRN Reason: Protocol Last Admin: 12/05/16 18:45 Dose: 12 unit Metoprolol Tartrate (Lopressor) 2.5 mg IVP Q8 [facility] Last Admin: 12/05/16 22:00 Dose: Not Given Nicotine (Nicoderm Cq) 1 patch TD DAILY [facility] Last Admin: 12/05/16 10:21 Dose: 1 patch Nitroglycerin (Nitro-Bid 2% Oint) 1 ea TOP Q6 [facility] Last Admin: 12/05/16 18:00 Dose: Not Given - Labs Labs: 12/05/16 06:37 12/05/16 06:37 PT 13.7 SECONDS (9.7-12.2) H 12/01/16 02:35 INR 1.2 12/01/16 02:35 APTT 55 SECONDS (21-34) H 12/05/16 06:37
[2016-12-06] MEDS: (Novolin R) Insulin Human Regular 100 units/ml vial SC SCH ×4 (00:15→17:44)
--- NOTE | 2016-12-06 01:17 | PN ---
SUBJECTIVE: The patient remains intubated. He is in the ICU and is unresponsive in the ICU on a ventilator, and he is on multiple IV antibiotics. He does have staph aureus septicemia and he has history of myelodysplastic syndrome. His temperature remains and they have removed the PICC line. He has peripheral IV right now in the left arm. PHYSICAL EXAMINATION: VITAL SIGNS: Temperature last recorded is 97.6 at 12 today and his blood pressure is 84/46, respirations 23, pulse is 79. He is lethargic. NECK: Supple. LUNGS: Clear. No crackles or rales heard. HEART: S1, S2 regular. ABDOMEN: Soft, nontender. No guarding, no rigidity present. EXTREMITIES: On both extremities, he has stasis dermatitis and he has an ulcer on the medial malleolus, and I think there is pus on it which is coming. He will need a wound culture if not done. I have started him on cefepime, daptomycin and Tygacil, as he has pneumonia also, and does not go to the lungs, and it could have been the staph aureus, it could have been also from the PICC line that he had, so we will leave these 3 antibiotics on. Echocardiogram is pending at this time. LABORATORY DATA: Shows that white count is 2.6, hemoglobin 8.3, hematocrit 26.2, platelet count is 231. His bands are 4. Sodium 142, potassium 4.5, chloride 107, CO2 is 17, BUN is 98, and creatinine remains to be 2.6. He remains in renal insufficiency, and his LFTs are elevated due to sepsis and staph aureus septicemia. He also has pancytopenia secondary to myelodysplastic syndrome and his respiratory failure remains critically distressed, and I will be away. I will endorse this patient to Dr. Bishop, who would be covering me until 12/17. Chele Landry MD
[2016-12-06] MEDS: Albuterol-Ipratrop 3 mg / 0.5 (3 ml) UD INH SCH ×4 (02:44→19:55)
[2016-12-06 05:50] LABS: ABG ALLEN TEST POS; ABG MECHANICAL RATE 20; ARTERIAL BLOOD HGB O2 SAT 96.3 % (95.0-98.0); ATERIAL BLOOD GAS PEEP 5; CARBOXYHEMOGLOBIN 1.9 % (0.5-1.5); HHB 0.8 % (0.0-5.0); METHEMOGLOBIN 1.1 % (0.0-3.0)
[2016-12-06] MEDS: Nitroglycerin 2% Ointment Foilpak UD TOP SCH ×4 (06:00→18:00)
[2016-12-06] MEDS: Metoprolol 1 mg/ml Inj IVP SCH ×3 (06:00→22:00)
[2016-12-06] MEDS: Tigecycline 50 MG in Dextrose 5% In Water 100 ML IVPB SCH (06:00)
[2016-12-06] MEDS: (Lantus) Insulin Glargine, Recombinant SC SCH ×2 (06:20→17:45)
[2016-12-06 06:31] LABS: BASO % 0.4 % (0.0-2.0); EOS % 0.4 % (0.0-4.0); HEMATOCRIT 27.7 % (35.0-51.0); LYMPH # 0.3 K/uL (1.0-4.3); LYMPH % 14.5 % (20.0-40.0); MEAN CELL VOLUME 83.1 fL (80.0-94.0); MEAN CORPUSCULAR HEMOGLOBIN 26.9 pg (27.0-31.0); MEAN CORPUSCULAR HGB CONC 32.3 g/dL (33.0-37.0); MEAN PLATELET VOLUME 9.8 fL (7.2-11.7); MONO % 0.4 % (0.0-10.0); NRBC % 2.7 % (0.0-2.0); RED CELL DISTRIBUTION WIDTH 26.4 % (11.5-14.5); WHITE BLOOD COUNT 2.2 K/uL (4.8-10.8)
[2016-12-06 06:42] LABS: POTASSIUM 5.1 mmol/L (3.6-5.2)
[2016-12-06 06:45] LABS: ALB/GLOB RATIO 0.7 (1.0-2.1); BILIRUBIN,TOTAL 0.7 mg/dL (0.2-1.3); CALCIUM 7.9 mg/dl (8.6-10.4); PHOSPHOROUS 7.2 mg/dL (2.5-4.5); TOTAL PROTEIN 6.5 g/dL (6.3-8.3)
[2016-12-06 06:46] LABS: MAGNESIUM 2.9 mg/dL (1.6-2.3)
--- NOTE | 2016-12-06 08:06 | CP.CCUPN ---
<AlexStephani SAvi - Last Filed: 12/06/16 14:39> CCU Subjective - Physician Review Subjective (Free Text): Patient was seen and examined at bedside this AM. Patient is intubated and sedated. The daughter previously has denied a central line or placing a new PICC line in the left arm. 12/06/16 14:39 CCU Objective - Vital Signs / Intake & Output Vital Signs (Last 4 hours): Vital Signs Pulse Resp BP Pulse Ox 12/06/16 07:00 147 H 21 108/60 97 12/06/16 06:00 83 20 98/54 L 97 12/06/16 05:00 80 20 101/52 L 98 Intake and Output (Last 8hrs): Intake & Output 12/05/16 12/06/16 12/06/16 22:59 06:59 14:59 Intake Total 604.6 508.6 49.2 Output Total 140 130 Balance 464.6 378.6 49.2 Weight 143 lb 4.807 oz Intake: IV 350 125 Intake, IV Amount 164.6 223.6 29.2 Left Wrist 105.6 105.6 13.2 Left Wrist Y-site 46 48 6 Right Forearm 13 70 10 Oral 30 Tube Feeding 60 160 20 Output: Urine 140 130 Urethral (Powell) 140 130 - Physical Exam Physical Exam Limitations: Positive for: Clinical Condition (intubated and sedated ) Head: Positive for: Atraumatic, Normocephalic Mouth: Positive for: Dry Respiratory/Chest: Positive for: Respiratory Distress, Decreased Breath Sounds, Tachypneic. Negative for: Rales Cardiovascular: Positive for: Normal S1, S2, Irregular Rhythm (afib- rate controlled ), Tachycardic Abdomen: Negative for: Tenderness, Distention, Normal Bowel Sounds (hypo bowel sounds ) Upper Extremity: Positive for: Normal Inspection Lower Extremity: Positive for: Normal Inspection. Negative for: Edema, CALF TENDERNESS, Tenderness, Swelling Neurological: Negative for: GCS=15 Skin: Positive for: Warm, Dry Psychiatric: Positive for: Alert. Negative for: Oriented x 3, Normal Insight, Normal Concentration - Medications Active Medications: Active Medications Generic Name Dose Route Start Last Admin Trade Name Freq PRN Reason Stop Dose Admin Albuterol/Ipratropium 3 ml 12/01/16 08:00 12/06/16 02:44 Duoneb 3 Mg/0.5 Mg (3 Ml) Ud INH 3 ml RQ6 LOUANN Administration Aspirin 300 mg 12/02/16 10:00 12/05/16 10:21 Aspirin Supp WI 300 mg DAILY LOUANN Administration Famotidine 20 mg 12/01/16 10:00 12/05/16 10:25 Pepcid IVP 20 mg DAILY LOUANN Administration Heparin Sodium/Sodium Chloride 25,000 units in 250 mls @ 7.947 mls/hr 10:04 12/05/16 21:15 Heparin 61718 Units/250ml 1/2 Normal Saline IV 20 units/kg/hr .Q24H PRN 13.245 mls/hr PROTOCOL Administration Protocol 12 UNITS/KG/HR Propofol 1,000 mg in 100 mls @ 2.01 mls/hr 12/04/16 08:54 12/05/16 22:20 Diprivan IV 15 mcg/kg/min .Q24H PRN 6.03 mls/hr TITRATE PER MD ORDER Administration Protocol 5 MCG/KG/MIN Diltiazem HCl 125 mg/ Sodium 125 mls @ 5 mls/hr 12/04/16 13:00 12/06/16 00:05 Chloride IV 10 mg/hr .Q24H LOUANN 10 mls/hr Protocol Administration 5 MG/HR Daptomycin 360 mg/ Sodium 100 mls @ 100 mls/hr 12/04/16 18:00 12/04/16 17:24 Chloride IV 12/09/16 18:01 100 mls/hr Q48H LOUANN Administration Tigecycline 50 mg/ Dextrose 100 mls @ 100 mls/hr 12/05/16 17:00 12/06/16 06: 00 IVPB 100 mls/hr Q12H LOUANN Administration Cefepime HCl 1 gm/ Dextrose 50 mls @ 100 mls/hr 12/04/16 19:00 12/05/16 20:00 IVPB 100 mls/hr Q24H LOUANN Administration Insulin Glargine 10 unit 12/05/16 18:12 12/06/16 06:20 Lantus SC 10 u Q12H LOUANN Administration Insulin Human Regular 0 unit 12/05/16 09:30 12/06/16 06:20 Novolin R SC 8 unit Q6 LOUANN Administration Protocol Metoprolol Tartrate 2.5 mg 12/01/16 22:00 12/06/16 06:00 Lopressor IVP Not Given Q8 LOUANN Nicotine 1 patch 12/03/16 10:00 12/05/16 10:21 Nicoderm Cq TD 1 patch DAILY [facility] Administration Nitroglycerin 1 ea 12/01/16 12:00 12/06/16 06:00 Nitro-Bid 2% Oint TOP Not Given Q6 LOUANN - Patient Studies Lab Studies: Microbiology Studies 12/03/16 Unknown Gram Stain - Final Ankle - Right Wound Culture - Final Proteus Mirabilis 12/01/16 16:00 S.aureus & Coag-Neg Staph PNA FISH - Final Blood Blood Culture - Final Methicillin Resistant S Aureus Gram Stain - Final 12/01/16 16:00 Blood Culture - Preliminary Blood NO GROWTH AFTER 4 DAYS Lab Studies 12/06/16 12/06/16 12/06/16 Range/Units 06:22 06:22 06:22 WBC 2.2 L (4.8-10.8) K/uL RBC 3.33 L (4.40-5.90) Mil/uL Hgb 9.0 L (12.0-18.0) g/dL Hct 27.7 L (35.0-51.0) % MCV 83.1 (80.0-94.0) fL MCH 26.9 L (27.0-31.0) pg MCHC 32.3 L (33.0-37.0) g/dL RDW 26.4 H (11.5-14.5) % Plt Count 229 (130-400) K/uL MPV 9.8 (7.2-11.7) fL Neut % (Auto) 84.3 H (50.0-75.0) % Lymph % (Auto) 14.5 L (20.0-40.0) % [place] % (Auto) 0.4 (0.0-10.0) % Eos % (Auto) 0.4 (0.0-4.0) % Baso % (Auto) 0.4 (0.0-2.0) % Neut # 1.9 (1.8-7.0) K/uL Lymph # 0.3 L (1.0-4.3) K/uL [place] # 0.0 (0.0-0.8) K/uL Eos # 0.0 (0.0-0.7) K/uL Baso # 0.0 (0.0-0.2) K/uL Neutrophils % (Manual) (50-75) % Band Neutrophils % (0-2) % Lymphocytes % (Manual) (20-40) % Monocytes % (Manual) (0-10) % Nucleated RBC % (0-0) % Platelet Estimate (NORMAL) Hypochromasia (manual) Anisocytosis (manual) Microcytosis (manual) APTT 58 H (21-34) SECONDS Puncture Site pCO2 (35-45) mm/Hg pO2 (80-100) mm/Hg HCO3 (21-28) mmol/L ABG pH (7.35-7.45) ABG Total CO2 (22-28) mmol/L ABG O2 Saturation (95-98) % ABG Base Excess (-2.0-3.0) mmol/L ABG Hemoglobin (11.7-17.4) g/dL ABG Carboxyhemoglobin (0.5-1.5) % POC ABG HHb (Measured) (0.0-5.0) % ABG Methemoglobin (0.0-3.0) % Jose Test A-a O2 Difference mm/Hg Respiratory Index Hgb O2 Saturation (95.0-98.0) % Mechanical Rate FiO2 % Tidal Volume PEEP Sodium 143 (132-148) mmol/L Potassium 5.1 (3.6-5.2) mmol/L Chloride 106 (98-107) mmol/L Carbon Dioxide 17 L (22-30) mmol/L Anion Gap 25 H (10-20) BUN 121 H* D (9-20) mg/dL Creatinine 2.8 H (0.8-1.5) MG/DL Est GFR ( Amer) 27 Est GFR (Non-Af Amer) 22 POC Glucose (mg/dL) (65-110) mg/dL Random Glucose 292 H (75-110) mg/dL Calcium 7.9 L (8.6-10.4) mg/dl Phosphorus 7.2 H (2.5-4.5) mg/dL Magnesium 2.9 H (1.6-2.3) mg/dL Total Bilirubin 0.7 (0.2-1.3) mg/dL AST 57 (17-59) U/L ALT 178 H (21-72) U/L Alkaline Phosphatase 151 H (38-126) U/L Total Protein 6.5 (6.3-8.3) g/dL Albumin 2.7 L (3.5-5.0) g/dL Globulin 3.8 (2.2-3.9) gm/dL Albumin/Globulin Ratio 0.7 L (1.0-2.1) 12/06/16 12/06/16 12/05/16 Range/Units 05:47 05:24 23:20 WBC (4.8-10.8) K/uL RBC (4.40-5.90) Mil/uL Hgb (12.0-18.0) g/dL Hct (35.0-51.0) % MCV (80.0-94.0) fL MCH (27.0-31.0) pg MCHC (33.0-37.0) g/dL RDW (11.5-14.5) % Plt Count (130-400) K/uL MPV (7.2-11.7) fL Neut % (Auto) (50.0-75.0) % Lymph % (Auto) (20.0-40.0) % [place] % (Auto) (0.0-10.0) % Eos % (Auto) (0.0-4.0) % Baso % (Auto) (0.0-2.0) % Neut # (1.8-7.0) K/uL Lymph # (1.0-4.3) K/uL [place] # (0.0-0.8) K/uL Eos # (0.0-0.7) K/uL Baso # (0.0-0.2) K/uL Neutrophils % (Manual) (50-75) % Band Neutrophils % (0-2) % Lymphocytes % (Manual) (20-40) % Monocytes % (Manual) (0-10) % Nucleated RBC % (0-0) % Platelet Estimate (NORMAL) Hypochromasia (manual) Anisocytosis (manual) Microcytosis (manual) APTT (21-34) SECONDS Puncture Site R r pCO2 36 (35-45) mm/Hg pO2 117 H (80-100) mm/Hg HCO3 18.7 L (21-28) mmol/L ABG pH 7.30 L (7.35-7.45) ABG Total CO2 18.8 L (22-28) mmol/L ABG O2 Saturation 99.2 H (95-98) % ABG Base Excess -8.0 L (-2.0-3.0) mmol/L ABG Hemoglobin 9.3 L (11.7-17.4) g/dL ABG Carboxyhemoglobin 1.9 H (0.5-1.5) % POC ABG HHb (Measured) 0.8 (0.0-5.0) % ABG Methemoglobin 1.1 (0.0-3.0) % Jose Test Pos A-a O2 Difference 551.0 mm/Hg Respiratory Index 4.7 Hgb O2 Saturation 96.3 (95.0-98.0) % Mechanical Rate 20 FiO2 100.0 % Tidal Volume 500 PEEP 5 Sodium (132-148) mmol/L Potassium (3.6-5.2) mmol/L Chloride (98-107) mmol/L Carbon Dioxide (22-30) mmol/L Anion Gap (10-20) BUN (9-20) mg/dL Creatinine (0.8-1.5) MG/DL Est GFR ( Amer) Est GFR (Non-Af Amer) POC Glucose (mg/dL) 304 H 425 H* (65-110) mg/dL Random Glucose (75-110) mg/dL Calcium (8.6-10.4) mg/dl Phosphorus (2.5-4.5) mg/dL Magnesium (1.6-2.3) mg/dL Total Bilirubin (0.2-1.3) mg/dL AST (17-59) U/L ALT (21-72) U/L Alkaline Phosphatase (38-126) U/L Total Protein (6.3-8.3) g/dL Albumin (3.5-5.0) g/dL Globulin (2.2-3.9) gm/dL Albumin/Globulin Ratio (1.0-2.1) 12/05/16 12/05/16 12/05/16 Range/Units 18:09 11:39 06:37 WBC (4.8-10.8) K/uL RBC (4.40-5.90) Mil/uL Hgb (12.0-18.0) g/dL Hct (35.0-51.0) % MCV (80.0-94.0) fL MCH (27.0-31.0) pg MCHC (33.0-37.0) g/dL RDW (11.5-14.5) % Plt Count (130-400) K/uL MPV (7.2-11.7) fL Neut % (Auto) (50.0-75.0) % Lymph % (Auto) (20.0-40.0) % [place] % (Auto) (0.0-10.0) % Eos % (Auto) (0.0-4.0) % Baso % (Auto) (0.0-2.0) % Neut # (1.8-7.0) K/uL Lymph # (1.0-4.3) K/uL [place] # (0.0-0.8) K/uL Eos # (0.0-0.7) K/uL Baso # (0.0-0.2) K/uL Neutrophils % (Manual) 76 H (50-75) % Band Neutrophils % 4 H (0-2) % Lymphocytes % (Manual) 9 L (20-40) % Monocytes % (Manual) 11 H (0-10) % Nucleated RBC % 1 H (0-0) % Platelet Estimate Normal (NORMAL) Hypochromasia (manual) Slight Anisocytosis (manual) Moderate Microcytosis (manual) Slight APTT (21-34) SECONDS Puncture Site pCO2 (35-45) mm/Hg pO2 (80-100) mm/Hg HCO3 (21-28) mmol/L ABG pH (7.35-7.45) ABG Total CO2 (22-28) mmol/L ABG O2 Saturation (95-98) % ABG Base Excess (-2.0-3.0) mmol/L ABG Hemoglobin (11.7-17.4) g/dL ABG Carboxyhemoglobin (0.5-1.5) % POC ABG HHb (Measured) (0.0-5.0) % ABG Methemoglobin (0.0-3.0) % Jose Test A-a O2 Difference mm/Hg Respiratory Index Hgb O2 Saturation (95.0-98.0) % Mechanical Rate FiO2 % Tidal Volume PEEP Sodium (132-148) mmol/L Potassium (3.6-5.2) mmol/L Chloride (98-107) mmol/L Carbon Dioxide (22-30) mmol/L Anion Gap (10-20) BUN (9-20) mg/dL Creatinine (0.8-1.5) MG/DL Est GFR ( Amer) Est GFR (Non-Af Amer) POC Glucose (mg/dL) 431 H* 366 H (65-110) mg/dL Random Glucose (75-110) mg/dL Calcium (8.6-10.4) mg/dl Phosphorus (2.5-4.5) mg/dL Magnesium (1.6-2.3) mg/dL Total Bilirubin (0.2-1.3) mg/dL AST (17-59) U/L ALT (21-72) U/L Alkaline Phosphatase (38-126) U/L Total Protein (6.3-8.3) g/dL Albumin (3.5-5.0) g/dL Globulin (2.2-3.9) gm/dL Albumin/Globulin Ratio (1.0-2.1) Laboratory Results - last 24 hr 12/05/16 12/05/16 12/05/16 06:37 11:39 18:09 WBC RBC Hgb Hct MCV MCH MCHC RDW Plt Count MPV Neut % (Auto) Lymph % (Auto) [place] % (Auto) Eos % (Auto) Baso % (Auto) Neut # Lymph # [place] # Eos # Baso # Neutrophils % (Manual) 76 H Band Neutrophils % 4 H Lymphocytes % (Manual) 9 L Monocytes % (Manual) 11 H Nucleated RBC % 1 H Platelet Estimate Normal Hypochromasia (manual) Slight Anisocytosis (manual) Moderate Microcytosis (manual) Slight APTT Puncture Site pCO2 pO2 HCO3 ABG pH ABG Total CO2 ABG O2 Saturation ABG Base Excess ABG Hemoglobin ABG Carboxyhemoglobin POC ABG HHb (Measured) ABG Methemoglobin Jose Test A-a O2 Difference Respiratory Index Hgb O2 Saturation Mechanical Rate FiO2 Tidal Volume PEEP Sodium Potassium Chloride Carbon Dioxide Anion Gap BUN Creatinine Est GFR ( Amer) Est GFR (Non-Af Amer) POC Glucose (mg/dL) 366 H 431 H* Random Glucose Calcium Phosphorus Magnesium Total Bilirubin AST ALT Alkaline Phosphatase Total Protein Albumin Globulin Albumin/Globulin Ratio 12/05/16 12/06/16 12/06/16 23:20 05:24 05:47 WBC RBC Hgb Hct MCV MCH MCHC RDW Plt Count MPV Neut % (Auto) Lymph % (Auto) [place] % (Auto) Eos % (Auto) Baso % (Auto) Neut # Lymph # [place] # Eos # Baso # Neutrophils % (Manual) Band Neutrophils % Lymphocytes % (Manual) Monocytes % (Manual) Nucleated RBC % Platelet Estimate Hypochromasia (manual) Anisocytosis (manual) Microcytosis (manual) APTT Puncture Site R r pCO2 36 pO2 117 H HCO3 18.7 L ABG pH 7.30 L ABG Total CO2 18.8 L ABG O2 Saturation 99.2 H ABG Base Excess -8.0 L ABG Hemoglobin 9.3 L ABG Carboxyhemoglobin 1.9 H POC ABG HHb (Measured) 0.8 ABG Methemoglobin 1.1 Jose Test Pos A-a O2 Difference 551.0 Respiratory Index 4.7 Hgb O2 Saturation 96.3 Mechanical Rate 20 FiO2 100.0 Tidal Volume 500 PEEP 5 Sodium Potassium Chloride Carbon Dioxide Anion Gap BUN Creatinine Est GFR ( Amer) Est GFR (Non-Af Amer) POC Glucose (mg/dL) 425 H* 304 H Random Glucose Calcium Phosphorus Magnesium Total Bilirubin AST ALT Alkaline Phosphatase Total Protein Albumin Globulin Albumin/Globulin Ratio 12/06/16 12/06/16 12/06/16 06:22 06:22 06:22 WBC 2.2 L RBC 3.33 L Hgb 9.0 L Hct 27.7 L MCV 83.1 MCH 26.9 L MCHC 32.3 L RDW 26.4 H Plt Count 229 MPV 9.8 Neut % (Auto) 84.3 H Lymph % (Auto) 14.5 L [place] % (Auto) 0.4 Eos % (Auto) 0.4 Baso % (Auto) 0.4 Neut # 1.9 Lymph # 0.3 L [place] # 0.0 Eos # 0.0 Baso # 0.0 Neutrophils % (Manual) Band Neutrophils % Lymphocytes % (Manual) Monocytes % (Manual) Nucleated RBC % Platelet Estimate Hypochromasia (manual) Anisocytosis (manual) Microcytosis (manual) APTT 58 H Puncture Site pCO2 pO2 HCO3 ABG pH ABG Total CO2 ABG O2 Saturation ABG Base Excess ABG Hemoglobin ABG Carboxyhemoglobin POC ABG HHb (Measured) ABG Methemoglobin Jose Test A-a O2 Difference Respiratory Index Hgb O2 Saturation Mechanical Rate FiO2 Tidal Volume PEEP Sodium 143 Potassium 5.1 Chloride 106 Carbon Dioxide 17 L Anion Gap 25 H BUN 121 H* D Creatinine 2.8 H Est GFR ( Amer) 27 Est GFR (Non-Af Amer) 22 POC Glucose (mg/dL) Random Glucose 292 H Calcium 7.9 L Phosphorus 7.2 H Magnesium 2.9 H Total Bilirubin 0.7 AST 57 ALT 178 H Alkaline Phosphatase 151 H Total Protein 6.5 Albumin 2.7 L Globulin 3.8 Albumin/Globulin Ratio 0.7 L Fingerstick Blood Sugar Results: 304 Review of Systems - Review of Systems Systems not reviewed;Unavailable: Intubated Assessment/Plan (1) CHF (congestive heart failure) Assessment and plan: 71-year-old male with history of COPD hypertension, CAD, heart failure, acute non-ST elevation MS complicated with the cardiac shock. Patient's HR and BP were labile overnight. Cardizem drip was stopped during the day yesterday 12/05 but restarted overnight as patient became tachycardic. Cardizem drip was later discontinued today 12/06 and patient has been started on amiodarone drip. Neuro: Sedated with Propofol Pulm: Intubated CV: Patient is in cardiac shock - per Dr. Snyder pt is not stable for cardiac cath Cardio Consult: Dr. Snyder and Dr. Apple --> help appreciated Repeat ECHO showed EF of 20-25%, systolic dysfunction Heme Neutropenia secondary to Myelodysplastic Syndrome Heme/Onc Consult: Dr. Knutson --> help appreciated GI: Tube Feedings @ 20cc/hr Renal: CKD Will discuss dialysis with patient's daughter Jo Endo: Diabetes Accuchecks/Insulin (Regular Sliding Scale was increased to high protocol Glucose elevated secondary to methylprednisolone - discontinued 12/05 Insulin Glargine 10 units was added due to elevated glucose Monitor ID: Methicillin Resistant S. Aureus - Blood Culture Proteus Mirabilis - Wound Culture (right ankle) Tigecycline started 12/05 Cefepime started 12/04 Daptomycine started 12/04 ID Consult: Dr. Landry --> help appreciated MSK: Right Ankle X-ray: Soft tissue ulceration over anterior and medial aspect of the ankle. Periosteal reaction, smooth, along distal tibial diaphysis to the medial malleolus. Uncertain significance but the possibility of osteomyelitis must be considered. Possible nonunion of old fracture distal medial tibia, unchanged. DVT proph: SCDs, heparin drip GI Proph: Pepcid 20mg IVP Daily Code Status: full code Case discussed with Dr. Sara Johnson PGY-1 Current Visit: Yes Status: Chronic <Villa Ruiz - Last Filed: 12/06/16 16:14> CCU Objective - Vital Signs / Intake & Output Vital Signs (Last 4 hours): Vital Signs Temp Pulse Resp BP Pulse Ox 12/06/16 15:00 77 19 95 12/06/16 14:40 77 18 83/44 L 95 12/06/16 14:35 76 17 83/45 L 95 12/06/16 14:00 76 20 80/44 L 96 12/06/16 13:59 73 19 80/44 L 94 L 12/06/16 13:40 139 H 19 77/46 L 96 12/06/16 13:22 141 H 20 78/49 L 95 12/06/16 13:00 142 H 18 95 12/06/16 12:52 142 H 23 82/50 L 95 12/06/16 12:51 142 H 24 83/53 L 96 12/06/16 12:00 97.5 F L 137 H 23 96 12/06/16 11:57 137 H 23 83/48 L 95 Intake and Output (Last 8hrs): Intake & Output 12/06/16 12/06/16 12/06/16 06:59 14:59 22:59 Intake Total 508.6 678.6 66.5 Output Total 130 150 15 Balance 378.6 528.6 51.5 Weight 143 lb 4.807 oz Intake: IV 125 237 Intake, IV Amount 223.6 301.6 46.5 Left Wrist 105.6 105.6 13.2 Left Wrist Y-site 48 46 0 Right Forearm 70 150 33.3 Tube Feeding 160 140 20 Output: Urine 130 150 15 Urethral (Powell) 130 150 15 - Medications Active Medications: Active Medications Generic Name Dose Route Start Last Admin Trade Name Freq PRN Reason Stop Dose Admin Albuterol/Ipratropium 3 ml 12/01/16 08:00 12/06/16 14:17 Duoneb 3 Mg/0.5 Mg (3 Ml) Ud INH 3 ml RQ6 LOUANN Administration Aspirin 300 mg 12/02/16 10:00 12/06/16 09:03 Aspirin Supp WI 300 mg DAILY LOUANN Administration Famotidine 20 mg 12/01/16 10:00 12/06/16 09:03 Pepcid IVP 20 mg DAILY LOUANN Administration Heparin Sodium/Sodium Chloride 25,000 units in 250 mls @ 7.947 mls/hr 10:04 12/05/16 21:15 Heparin 01527 Units/250ml 1/2 Normal Saline IV 20 units/kg/hr .Q24H PRN 13.245 mls/hr PROTOCOL Administration Protocol 12 UNITS/KG/HR Propofol 1,000 mg in 100 mls @ 2.01 mls/hr 12/04/16 08:54 12/06/16 14:30 Diprivan IV 0 mcg/kg/min .Q24H PRN 0 mls/hr TITRATE PER MD ORDER Titration Protocol 5 MCG/KG/MIN Daptomycin 360 mg/ Sodium 100 mls @ 100 mls/hr 12/04/16 18:00 12/04/16 17:24 Chloride IV 12/09/16 18:01 100 mls/hr Q48H LOUANN Administration Cefepime HCl 1 gm/ Dextrose 50 mls @ 100 mls/hr 12/04/16 19:00 12/05/16 20:00 IVPB 100 mls/hr Q24H LOUANN Administration Tigecycline 50 mg/ Sodium 100 mls @ 100 mls/hr 12/06/16 18:00 Chloride IVPB Q12H LOUANN Amiodarone HCl 900 mg/ 500 mls @ 33.33 mls/hr 12/06/16 11:45 12/06/16 14:00 Dextrose IV 12/06/16 17:45 33.33 mls/hr .Q15H1M LOUANN Administration Protocol 1 MG/MIN Amiodarone HCl 900 mg/ 500 mls @ 16.66 mls/hr 12/06/16 17:46 Dextrose IV 12/07/16 11:46 .Q24H LOUANN Protocol 0.5 MG/MIN Insulin Glargine 10 unit 12/05/16 18:12 12/06/16 06:20 Lantus SC 10 u Q12H LOUANN Administration Insulin Human Regular 0 unit 12/05/16 09:30 12/06/16 12:14 Novolin R SC 6 unit Q6 LOUANN Administration Protocol Metoprolol Tartrate 2.5 mg 12/01/16 22:00 12/06/16 14:24 Lopressor IVP Not Given Q8 LOUANN Nicotine 1 patch 12/03/16 10:00 12/06/16 09:03 Nicoderm Cq TD 1 patch DAILY [facility]ANN Administration Nitroglycerin 1 ea 12/01/16 12:00 12/06/16 12:14 Nitro-Bid 2% Oint TOP Not Given Q6 [facility] - Patient Studies Lab Studies: Microbiology Studies 12/03/16 Unknown Gram Stain - Final Ankle - Right Wound Culture - Final Proteus Mirabilis 12/01/16 16:00 S.aureus & Coag-Neg Staph PNA FISH - Final Blood Blood Culture - Final Methicillin Resistant S Aureus Gram Stain - Final 12/01/16 16:00 Blood Culture - Preliminary Blood NO GROWTH AFTER 4 DAYS Lab Studies 12/06/16 12/06/16 12/06/16 Range/Units 11:19 06:22 06:22 WBC (4.8-10.8) K/uL RBC (4.40-5.90) Mil/uL Hgb (12.0-18.0) g/dL Hct (35.0-51.0) % MCV (80.0-94.0) fL MCH (27.0-31.0) pg MCHC (33.0-37.0) g/dL RDW (11.5-14.5) % Plt Count (130-400) K/uL MPV (7.2-11.7) fL Neut % (Auto) (50.0-75.0) % Lymph % (Auto) (20.0-40.0) % [place] % (Auto) (0.0-10.0) % Eos % (Auto) (0.0-4.0) % Baso % (Auto) (0.0-2.0) % Neut # (1.8-7.0) K/uL Lymph # (1.0-4.3) K/uL [place] # (0.0-0.8) K/uL Eos # (0.0-0.7) K/uL Baso # (0.0-0.2) K/uL APTT 58 H (21-34) SECONDS Puncture Site pCO2 (35-45) mm/Hg pO2 (80-100) mm/Hg HCO3 (21-28) mmol/L ABG pH (7.35-7.45) ABG Total CO2 (22-28) mmol/L ABG O2 Saturation (95-98) % ABG Base Excess (-2.0-3.0) mmol/L ABG Hemoglobin (11.7-17.4) g/dL ABG Carboxyhemoglobin (0.5-1.5) % POC ABG HHb (Measured) (0.0-5.0) % ABG Methemoglobin (0.0-3.0) % Jose Test A-a O2 Difference mm/Hg Respiratory Index Hgb O2 Saturation (95.0-98.0) % Mechanical Rate FiO2 % Tidal Volume PEEP Sodium 143 (132-148) mmol/L Potassium 5.1 (3.6-5.2) mmol/L Chloride 106 (98-107) mmol/L Carbon Dioxide 17 L (22-30) mmol/L Anion Gap 25 H (10-20) BUN 121 H* D (9-20) mg/dL Creatinine 2.8 H (0.8-1.5) MG/DL Est GFR ( Amer) 27 Est GFR (Non-Af Amer) 22 POC Glucose (mg/dL) 277 H (65-110) mg/dL Random Glucose 292 H (75-110) mg/dL Calcium 7.9 L (8.6-10.4) mg/dl Phosphorus 7.2 H (2.5-4.5) mg/dL Magnesium 2.9 H (1.6-2.3) mg/dL Total Bilirubin 0.7 (0.2-1.3) mg/dL AST 57 (17-59) U/L ALT 178 H (21-72) U/L Alkaline Phosphatase 151 H (38-126) U/L Total Protein 6.5 (6.3-8.3) g/dL Albumin 2.7 L (3.5-5.0) g/dL Globulin 3.8 (2.2-3.9) gm/dL Albumin/Globulin Ratio 0.7 L (1.0-2.1) 12/06/16 12/06/16 12/06/16 Range/Units 06:22 05:47 05:24 WBC 2.2 L (4.8-10.8) K/uL RBC 3.33 L (4.40-5.90) Mil/uL Hgb 9.0 L (12.0-18.0) g/dL Hct 27.7 L (35.0-51.0) % MCV 83.1 (80.0-94.0) fL MCH 26.9 L (27.0-31.0) pg MCHC 32.3 L (33.0-37.0) g/dL RDW 26.4 H (11.5-14.5) % Plt Count 229 (130-400) K/uL MPV 9.8 (7.2-11.7) fL Neut % (Auto) 84.3 H (50.0-75.0) % Lymph % (Auto) 14.5 L (20.0-40.0) % [place] % (Auto) 0.4 (0.0-10.0) % Eos % (Auto) 0.4 (0.0-4.0) % Baso % (Auto) 0.4 (0.0-2.0) % Neut # 1.9 (1.8-7.0) K/uL Lymph # 0.3 L (1.0-4.3) K/uL [place] # 0.0 (0.0-0.8) K/uL Eos # 0.0 (0.0-0.7) K/uL Baso # 0.0 (0.0-0.2) K/uL APTT (21-34) SECONDS Puncture Site R r pCO2 36 (35-45) mm/Hg pO2 117 H (80-100) mm/Hg HCO3 18.7 L (21-28) mmol/L ABG pH 7.30 L (7.35-7.45) ABG Total CO2 18.8 L (22-28) mmol/L ABG O2 Saturation 99.2 H (95-98) % ABG Base Excess -8.0 L (-2.0-3.0) mmol/L ABG Hemoglobin 9.3 L (11.7-17.4) g/dL ABG Carboxyhemoglobin 1.9 H (0.5-1.5) % POC ABG HHb (Measured) 0.8 (0.0-5.0) % ABG Methemoglobin 1.1 (0.0-3.0) % Jose Test Pos A-a O2 Difference 551.0 mm/Hg Respiratory Index 4.7 Hgb O2 Saturation 96.3 (95.0-98.0) % Mechanical Rate 20 FiO2 100.0 % Tidal Volume 500 PEEP 5 Sodium (132-148) mmol/L Potassium (3.6-5.2) mmol/L Chloride (98-107) mmol/L Carbon Dioxide (22-30) mmol/L Anion Gap (10-20) BUN (9-20) mg/dL Creatinine (0.8-1.5) MG/DL Est GFR ( Amer) Est GFR (Non-Af Amer) POC Glucose (mg/dL) 304 H (65-110) mg/dL Random Glucose (75-110) mg/dL Calcium (8.6-10.4) mg/dl Phosphorus (2.5-4.5) mg/dL Magnesium (1.6-2.3) mg/dL Total Bilirubin (0.2-1.3) mg/dL AST (17-59) U/L ALT (21-72) U/L Alkaline Phosphatase (38-126) U/L Total Protein (6.3-8.3) g/dL Albumin (3.5-5.0) g/dL Globulin (2.2-3.9) gm/dL Albumin/Globulin Ratio (1.0-2.1) 12/05/16 12/05/16 Range/Units 23:20 18:09 WBC (4.8-10.8) K/uL RBC (4.40-5.90) Mil/uL Hgb (12.0-18.0) g/dL Hct (35.0-51.0) % MCV (80.0-94.0) fL MCH (27.0-31.0) pg MCHC (33.0-37.0) g/dL RDW (11.5-14.5) % Plt Count (130-400) K/uL MPV (7.2-11.7) fL Neut % (Auto) (50.0-75.0) % Lymph % (Auto) (20.0-40.0) % [place] % (Auto) (0.0-10.0) % Eos % (Auto) (0.0-4.0) % Baso % (Auto) (0.0-2.0) % Neut # (1.8-7.0) K/uL Lymph # (1.0-4.3) K/uL [place] # (0.0-0.8) K/uL Eos # (0.0-0.7) K/uL Baso # (0.0-0.2) K/uL APTT (21-34) SECONDS Puncture Site pCO2 (35-45) mm/Hg pO2 (80-100) mm/Hg HCO3 (21-28) mmol/L ABG pH (7.35-7.45) ABG Total CO2 (22-28) mmol/L ABG O2 Saturation (95-98) % ABG Base Excess (-2.0-3.0) mmol/L ABG Hemoglobin (11.7-17.4) g/dL ABG Carboxyhemoglobin (0.5-1.5) % POC ABG HHb (Measured) (0.0-5.0) % ABG Methemoglobin (0.0-3.0) % Jose Test A-a O2 Difference mm/Hg Respiratory Index Hgb O2 Saturation (95.0-98.0) % Mechanical Rate FiO2 % Tidal Volume PEEP Sodium (132-148) mmol/L Potassium (3.6-5.2) mmol/L Chloride (98-107) mmol/L Carbon Dioxide (22-30) mmol/L Anion Gap (10-20) BUN (9-20) mg/dL Creatinine (0.8-1.5) MG/DL Est GFR ( Amer) Est GFR (Non-Af Amer) POC Glucose (mg/dL) 425 H* 431 H* (65-110) mg/dL Random Glucose (75-110) mg/dL Calcium (8.6-10.4) mg/dl Phosphorus (2.5-4.5) mg/dL Magnesium (1.6-2.3) mg/dL Total Bilirubin (0.2-1.3) mg/dL AST (17-59) U/L ALT (21-72) U/L Alkaline Phosphatase (38-126) U/L Total Protein (6.3-8.3) g/dL Albumin (3.5-5.0) g/dL Globulin (2.2-3.9) gm/dL Albumin/Globulin Ratio (1.0-2.1) Laboratory Results - last 24 hr 12/05/16 12/05/16 12/06/16 18:09 23:20 05:24 WBC RBC Hgb Hct MCV MCH MCHC RDW Plt Count MPV Neut % (Auto) Lymph % (Auto) [place] % (Auto) Eos % (Auto) Baso % (Auto) Neut # Lymph # [place] # Eos # Baso # APTT Puncture Site R r pCO2 36 pO2 117 H HCO3 18.7 L ABG pH 7.30 L ABG Total CO2 18.8 L ABG O2 Saturation 99.2 H ABG Base Excess -8.0 L ABG Hemoglobin 9.3 L ABG Carboxyhemoglobin 1.9 H POC ABG HHb (Measured) 0.8 ABG Methemoglobin 1.1 Jose Test Pos A-a O2 Difference 551.0 Respiratory Index 4.7 Hgb O2 Saturation 96.3 Mechanical Rate 20 FiO2 100.0 Tidal Volume 500 PEEP 5 Sodium Potassium Chloride Carbon Dioxide Anion Gap BUN Creatinine Est GFR ( Amer) Est GFR (Non-Af Amer) POC Glucose (mg/dL) 431 H* 425 H* Random Glucose Calcium Phosphorus Magnesium Total Bilirubin AST ALT Alkaline Phosphatase Total Protein Albumin Globulin Albumin/Globulin Ratio 12/06/16 12/06/16 12/06/16 05:47 06:22 06:22 WBC 2.2 L RBC 3.33 L Hgb 9.0 L Hct 27.7 L MCV 83.1 MCH 26.9 L MCHC 32.3 L RDW 26.4 H Plt Count 229 MPV 9.8 Neut % (Auto) 84.3 H Lymph % (Auto) 14.5 L [place] % (Auto) 0.4 Eos % (Auto) 0.4 Baso % (Auto) 0.4 Neut # 1.9 Lymph # 0.3 L [place] # 0.0 Eos # 0.0 Baso # 0.0 APTT Puncture Site pCO2 pO2 HCO3 ABG pH ABG Total CO2 ABG O2 Saturation ABG Base Excess ABG Hemoglobin ABG Carboxyhemoglobin POC ABG HHb (Measured) ABG Methemoglobin Jose Test A-a O2 Difference Respiratory Index Hgb O2 Saturation Mechanical Rate FiO2 Tidal Volume PEEP Sodium 143 Potassium 5.1 Chloride 106 Carbon Dioxide 17 L Anion Gap 25 H BUN 121 H* D Creatinine 2.8 H Est GFR ( Amer) 27 Est GFR (Non-Af Amer) 22 POC Glucose (mg/dL) 304 H Random Glucose 292 H Calcium 7.9 L Phosphorus 7.2 H Magnesium 2.9 H Total Bilirubin 0.7 AST 57 ALT 178 H Alkaline Phosphatase 151 H Total Protein 6.5 Albumin 2.7 L Globulin 3.8 Albumin/Globulin Ratio 0.7 L 12/06/16 12/06/16 06:22 11:19 WBC RBC Hgb Hct MCV MCH MCHC RDW Plt Count MPV Neut % (Auto) Lymph % (Auto) [place] % (Auto) Eos % (Auto) Baso % (Auto) Neut # Lymph # [place] # Eos # Baso # APTT 58 H Puncture Site pCO2 pO2 HCO3 ABG pH ABG Total CO2 ABG O2 Saturation ABG Base Excess ABG Hemoglobin ABG Carboxyhemoglobin POC ABG HHb (Measured) ABG Methemoglobin Jose Test A-a O2 Difference Respiratory Index Hgb O2 Saturation Mechanical Rate FiO2 Tidal Volume PEEP Sodium Potassium Chloride Carbon Dioxide Anion Gap BUN Creatinine Est GFR ( Amer) Est GFR (Non-Af Amer) POC Glucose (mg/dL) 277 H Random Glucose Calcium Phosphorus Magnesium Total Bilirubin AST ALT Alkaline Phosphatase Total Protein Albumin Globulin Albumin/Globulin Ratio Attending/Attestation - Attestation I have personally seen and examined this patient.: Yes I have fully participated in the care of the patient.: Yes I have reviewed all pertinent clinical information: Yes Notes (Text): 12/06/16 15:52 I have seen and examined the patient. Medical records, lab studies, and imaging were reviewed by me and a management plan was formulated on multidisciplinary rounds with resident Dr. Johnson. I agree with their above documented assessment and plan. Patient has severe ischemic cardiomyopathy s/p NSTEMI. Daily sedation vacations , will attempt to wean off of vent. Patient has medication resistant atrial fibrillation with hypotension, requiring electrical cardioversion today. Amiodarone IV loading to eventual conversion to oral. Spoke to daughter who has limited understanding of what I explained to her repeatedly about resuscitation status of her father. Patient is full code. Critical Care Time 35 minutes. Multi-disciplinary rounds were performed with house staff, nursing, speech therapy, respiratory therapy, pharmacy and nutrition with integrated input from the primary team/attending and other consulting services. The documented time is cumulative and includes review of patient data/exams/labs/chart review and examination of the patient on rounds and throughout the day; time is exclusive of any procedures or teaching time.
--- NOTE | 2016-12-06 08:26 | RAD ---
PROCEDURE: CHEST RADIOGRAPH, 1 VIEW HISTORY: vent COMPARISON: 12/05/2016 FINDINGS: LUNGS: Biapical pleural thickening with upper lobe granulomatous changes. Moderate to severe venous congestion with bibasilar airspace opacities and small bilateral pleural effusions. PLEURA: As above. CARDIOVASCULAR: Normal. OSSEOUS STRUCTURES: No significant abnormalities. VISUALIZED UPPER ABDOMEN: Normal. OTHER FINDINGS: None. IMPRESSION: Biapical pleural thickening with upper lobe granulomatous changes. Moderate to severe venous congestion with bibasilar airspace opacities and small bilateral pleural effusions.
--- NOTE | 2016-12-06 08:58 | CP.PCM.PN ---
<Karo Washington - Last Filed: 12/06/16 15:07> Subjective - Date & Time of Evaluation Date of Evaluation: 12/06/16 Time of Evaluation: 11:30 - Subjective Subjective: Cardiology progress note for Dr. Apple Patient seen and examined at bedside in ICU. Sedated and intubated on vent (20, 100, 500, 5). Patient's HR and BP were labile overnight. Cardizem gtt was / stopped during the day yesterday 12/05 but restarted overnight as patient became tachycardic. Cardizem gtt was later discontinued today 12/06 and patient has been started on amiodarone gtt. ROS unobtainable due to clinical condition. Tolerating feeds @ 20cc/hr. Objective - Vital Signs/Intake and Output Vital Signs (last 24 hours): Temp Pulse Resp BP Pulse Ox 97.7 F 154 H 18 100/57 L 98 12/06/16 08:00 12/06/16 08:01 12/06/16 08:01 12/06/16 08:01 12/06/16 08:01 Intake and Output: 12/06/16 12/06/16 06:59 18:59 Intake Total 1015.4 149.4 Output Total 175 5 Balance 840.4 144.4 - Medications Medications: Current Medications Albuterol/Ipratropium (Duoneb 3 Mg/0.5 Mg (3 Ml) Ud) 3 ml INH RQ6 [facility] Last Admin: 12/06/16 07:00 Dose: 3 ml Aspirin (Aspirin Supp) 300 mg [place] DAILY [facility] Last Admin: 12/05/16 10:21 Dose: 300 mg Famotidine (Pepcid) 20 mg IVP DAILY [facility] Last Admin: 12/05/16 10:25 Dose: 20 mg Heparin Sodium/Sodium Chloride (Heparin 49082 Units/250ml 1/2 Normal Saline) 25 ,000 units in 250 mls @ 7.947 mls/hr IV .Q24H PRN; Protocol; 12 UNITS/KG/HR PRN Reason: PROTOCOL Last Admin: 12/05/16 21:15 Dose: 20 units/kg/hr, 13.245 mls/hr Propofol (Diprivan) 1,000 mg in 100 mls @ 2.01 mls/hr IV .Q24H PRN; Protocol; 5 MCG/KG/MIN PRN Reason: TITRATE PER MD ORDER Last Titration: 12/06/16 07:30 Dose: 9.95 mcg/kg/min, 4 mls/hr Diltiazem HCl 125 mg/ Sodium (Chloride) 125 mls @ 5 mls/hr IV .Q24H [facility]; 5 MG/ HR PRN Reason: Protocol Last Admin: 12/06/16 00:05 Dose: 10 mg/hr, 10 mls/hr Daptomycin 360 mg/ Sodium (Chloride) 100 mls @ 100 mls/hr IV Q48H [facility] Stop: 12/09/16 18:01 Last Admin: 12/04/16 17:24 Dose: 100 mls/hr Tigecycline 50 mg/ Dextrose 100 mls @ 100 mls/hr IVPB Q12H [facility] Last Admin: 12/06/16 06:00 Dose: 100 mls/hr Cefepime HCl 1 gm/ Dextrose 50 mls @ 100 mls/hr IVPB Q24H [facility] Last Admin: 12/05/16 20:00 Dose: 100 mls/hr Insulin Glargine (Lantus) 10 unit SC Q12H [facility] Last Admin: 12/06/16 06:20 Dose: 10 u Insulin Human Regular (Novolin R) 0 unit SC Q6 [facility] PRN Reason: Protocol Last Admin: 12/06/16 06:20 Dose: 8 unit Metoprolol Tartrate (Lopressor) 2.5 mg IVP Q8 [facility] Last Admin: 12/06/16 06:00 Dose: Not Given Nicotine (Nicoderm Cq) 1 patch TD DAILY [facility] Last Admin: 12/05/16 10:21 Dose: 1 patch Nitroglycerin (Nitro-Bid 2% Oint) 1 ea TOP Q6 [facility] Last Admin: 12/06/16 06:00 Dose: Not Given - Labs Labs: 12/06/16 06:22 12/06/16 06:22 PT 13.7 SECONDS (9.7-12.2) H 12/01/16 02:35 INR 1.2 12/01/16 02:35 APTT 58 SECONDS (21-34) H 12/06/16 06:22 - Constitutional Appears: Cachectic, Chronically Ill - Eye Exam Eye Exam: Normal appearance. absent: Conjunctival injection, Scleral icterus - ENT Exam ENT Exam: Mucous Membranes Dry Additional comments: ET tube in place - Respiratory Exam Respiratory Exam: NORMAL BREATHING PATTERN. absent: Accessory Muscle Use Additional comments: intubated on vent (20, 100, 500, 5) - Cardiovascular Exam Cardiovascular Exam: Tachycardia, REGULAR RHYTHM, +S1, +S2 Additional comments: HR labile - GI/Abdominal Exam GI & Abdominal Exam: Soft - Extremities Exam Extremities Exam: absent: Pedal Edema - Neurological Exam Neurological Exam: absent: Alert, Awake, Oriented x3 Additional comments: sedated on propofol gtt - Skin Skin Exam: Dry, Intact Assessment and Plan - Assessment and Plan (Free Text) Assessment: 71 M PMHx of DM, CAD complicated by RI s/p stent, PVD, admitted for SOB. Patient was found to have acute NSTEMI complicated with cardiogenic shock. Cardiology consulted for NSTEMI Plan: -As per Dr. Snyder, patient is not a candidate for cardiac cath at the moment due to clinical condition -Echo 12/04 LV mildly dilated Mild concentric LVH EF 30-35% Moderate global hypokinesis LV diastolic function is normal R atrium appears mildly dilated Mild aortic regurgitation Mitral regurgitation is moderate Mild tricuspid regurgitation -Echo 12/03 LV systolic function is severely impaired EF 20-25% Mild aortic regurgitation Mitral regurgitation is mild Mild tricuspid regurgitation Borderline pulmonary htn No pulmonic valvular regurgitation -EKG 12/02 7:38: sinus tachycardia with PACs, L axis deviation, Anteroseptal infarct, ST and T wave abnormality, consider lateral ischemia -EKG 12/01 1:35: sinus tachycardia with PACs, L axis deviation, Incomplete RBBB, anteroseptal infarct, marked ST abnormality, possible lateral subendocardial injury -Elevated troponins 12/01 2:35 4.0900 12/01 6:36 3.1100 12/01 16:34 146.0000 12/01 18:08 129.0000 12/02 6:06 39.3000 12/03 4:56 13.5000 -Continue current management ASA 300mg pr daily Heparin gtt Amiodarone gtt Lopressor 2.5mg ivp q8 Nitrobid 1 ea top q6 Case discussed with Dr. Ambika Washington PGY2 <Santy Apple - Last Filed: 01/06/17 17:40> Objective - Vital Signs/Intake and Output Vital Signs (last 24 hours): Temp Pulse Resp BP Pulse Ox 98 F 58 L 26 H 62/29 L 68 L 12/07/16 08:00 12/08/16 11:37 12/08/16 11:37 12/08/16 11:37 12/07/16 10:03 - Labs Labs: 12/07/16 05:59 12/07/16 05:59 PT 13.7 SECONDS (9.7-12.2) H 12/01/16 02:35 INR 1.2 12/01/16 02:35 APTT 55 SECONDS (21-34) H 12/07/16 05:59 Attending/Attestation - Attestation I have personally seen and examined this patient.: Yes I have fully participated in the care of the patient.: Yes I have reviewed all pertinent clinical information, including history, physical exam and plan: Yes Notes (Text): 01/06/17 17:39 labile bp pt intubated and sedated guarded condition cardizem held
[2016-12-06] MEDS: Propofol 10 mg/ml 1,000 MG/100 ML VIAL IV PRN (12:16)
--- NOTE | 2016-12-06 13:23 | CP.PCM.PN ---
Subjective - Date & Time of Evaluation Date of Evaluation: 12/06/16 Time of Evaluation: 14:20 - Subjective Subjective: clinically same Objective - Vital Signs/Intake and Output Vital Signs (last 24 hours): Temp Pulse Resp BP Pulse Ox 97.5 F L 137 H 23 83/48 L 96 12/06/16 12:00 12/06/16 12:00 12/06/16 12:00 12/06/16 11:57 12/06/16 12:00 Intake and Output: 12/06/16 12/06/16 06:59 18:59 Intake Total 1015.4 608.2 Output Total 175 75 Balance 840.4 533.2 - Medications Medications: Current Medications Albuterol/Ipratropium (Duoneb 3 Mg/0.5 Mg (3 Ml) Ud) 3 ml INH RQ6 [facility] Last Admin: 12/06/16 07:00 Dose: 3 ml Aspirin (Aspirin Supp) 300 mg IN DAILY [facility] Last Admin: 12/06/16 09:03 Dose: 300 mg Famotidine (Pepcid) 20 mg IVP DAILY [facility] Last Admin: 12/06/16 09:03 Dose: 20 mg Heparin Sodium/Sodium Chloride (Heparin 07077 Units/250ml 1/2 Normal Saline) 25 ,000 units in 250 mls @ 7.947 mls/hr IV .Q24H PRN; Protocol; 12 UNITS/KG/HR PRN Reason: PROTOCOL Last Admin: 12/05/16 21:15 Dose: 20 units/kg/hr, 13.245 mls/hr Propofol (Diprivan) 1,000 mg in 100 mls @ 2.01 mls/hr IV .Q24H PRN; Protocol; 5 MCG/KG/MIN PRN Reason: TITRATE PER MD ORDER Last Admin: 12/06/16 12:16 Dose: 15 mcg/kg/min, 6.03 mls/hr Daptomycin 360 mg/ Sodium (Chloride) 100 mls @ 100 mls/hr IV Q48H [facility] Stop: 12/09/16 18:01 Last Admin: 12/04/16 17:24 Dose: 100 mls/hr Cefepime HCl 1 gm/ Dextrose 50 mls @ 100 mls/hr IVPB Q24H [facility] Last Admin: 12/05/16 20:00 Dose: 100 mls/hr Tigecycline 50 mg/ Sodium (Chloride) 100 mls @ 100 mls/hr IVPB Q12H [facility] Amiodarone HCl 900 mg/ (Dextrose) 500 mls @ 33.33 mls/hr IV .Q15H1M [facility]; 1 MG/ MIN PRN Reason: Protocol Stop: 12/06/16 17:45 Amiodarone HCl 900 mg/ (Dextrose) 500 mls @ 16.66 mls/hr IV .Q24H [facility]; 0.5 MG/ MIN PRN Reason: Protocol Stop: 12/07/16 11:46 Insulin Glargine (Lantus) 10 unit SC Q12H [facility] Last Admin: 12/06/16 06:20 Dose: 10 u Insulin Human Regular (Novolin R) 0 unit SC Q6 [facility] PRN Reason: Protocol Last Admin: 12/06/16 12:14 Dose: 6 unit Metoprolol Tartrate (Lopressor) 2.5 mg IVP Q8 [facility] Last Admin: 12/06/16 06:00 Dose: Not Given Nicotine (Nicoderm Cq) 1 patch TD DAILY [facility] Last Admin: 12/06/16 09:03 Dose: 1 patch Nitroglycerin (Nitro-Bid 2% Oint) 1 ea TOP Q6 [facility] Last Admin: 12/06/16 12:14 Dose: Not Given - Labs Labs: 12/06/16 06:22 12/06/16 06:22 PT 13.7 SECONDS (9.7-12.2) H 12/01/16 02:35 INR 1.2 12/01/16 02:35 APTT 58 SECONDS (21-34) H 12/06/16 06:22 - Constitutional Appears: Other - Head Exam Head Exam: ATRAUMATIC, NORMAL INSPECTION, NORMOCEPHALIC - Eye Exam Eye Exam: EOMI, Normal appearance, PERRL Pupil Exam: NORMAL ACCOMODATION, PERRL - ENT Exam ENT Exam: Mucous Membranes Moist, Normal Exam - Neck Exam Neck Exam: Full ROM, Normal Inspection. absent: Lymphadenopathy - Respiratory Exam Respiratory Exam: Decreased Breath Sounds - Cardiovascular Exam Cardiovascular Exam: REGULAR RHYTHM, +S1, +S2 - GI/Abdominal Exam GI & Abdominal Exam: Soft, Diminished Bowel Sounds - Rectal Exam Rectal Exam: Deferred Assessment and Plan (1) Acute respiratory failure Status: Acute (2) Anemia Status: Acute (3) Bacteremia due to methicillin resistant Staphylococcus aureus Status: Acute (4) Chest pain Status: Acute (5) Coagulopathy Status: Acute (6) Diabetes mellitus with ulcer of ankle Status: Acute (7) Diabetes mellitus, new onset Status: Acute (8) Dyspnea Status: Acute (9) Gastrointestinal hemorrhage Status: Acute (10) Infected ulcer of skin Status: Acute (11) MDS (myelodysplastic syndrome) Status: Acute (12) Neutropenia Status: Acute (13) Non-STEMI (non-ST elevated myocardial infarction) Status: Acute (14) Non-healing ulcer of foot Status: Acute (15) PAD (peripheral artery disease) Status: Acute (16) Pancytopenia Status: Acute (17) Pneumonia Status: Acute (18) Pneumonia Status: Acute (19) Prophylactic measure Status: Acute (20) Sepsis Status: Acute (21) CAD (coronary artery disease) Status: Chronic (22) CHF (congestive heart failure) Status: Chronic (23) Diabetes mellitus Status: Chronic - Assessment and Plan (Free Text) Plan: Patient seen and examined at bedside Blood pressure labile Sedated and intubated On mechanical ventilation Prognosis poor Discussed with family Explained in detail Monitor vitals Monitor labs
--- NOTE | 2016-12-06 16:25 | PCM.OP ---
Operative Report - Operative Report Date of Surgery/Procedure: 12/06/16 Time of Surgery/Procedure: 14:00 Surgeon: Villa Ruiz Anesthesia/Sedation: propofol gtt Pre-Operative Diagnosis: unstable atrial fibrillation Post-Operative Diagnosis: unstable atrial fibrillation Indication for Surgery: unstable atrial fibrillation Operative Findings: unstable atrial fibrillation Procedure/Operation Description: PROCEDURE: Direct current cardioversion. REASON FOR PROCEDURE: Atrial fibrillation. Patient's arrythmia was resistant to adneosine, which was tried for initial SVT. It was then decided to electrically cardiovert for unstable, hypotension, atrial fibrillation. Patient was electrically cardioverted with 120 J, with caodaism of sinus rhythm and improvement in blood pressure. Patient tolerated procedure well with no complications. Estimated Blood Loss: 0 ml Complications: none Discharge & Condition: sinus rhythm.
[2016-12-06] MEDS: Heparin25000 units/250ml 1/2NS 25,000 UNITS/250 ML BAG IV PRN (17:55)
--- NOTE | 2016-12-06 18:45 | CP.PCM.CON ---
History of Present Illness - History of Present Illness History of Present Illness: intubated on vent support Review of Systems - Review of Systems Systems not reviewed;Unavailable: Intubated Past Patient History - Infectious Disease Hx of Infectious Diseases: None - Tetanus Immunizations Tetanus Immunization: Unknown - Past Medical History & Family History Past Medical History?: No - Past Social History Smoking Status: Heavy Smoker > 10 Cigarettes Daily - CARDIAC Hx Hypercholesterolemia: Yes Hx Hypertension: Yes - PULMONARY Hx Respiratory Disorders: No - NEUROLOGICAL Hx Paralysis: No - HEENT Hx HEENT Problems: No - RENAL Hx Chronic Kidney Disease: Yes Hx Kidney Stones: Yes - ENDOCRINE/METABOLIC Hx Endocrine Disorders: Yes Hx Diabetes Mellitus Type 2: Yes - HEMATOLOGICAL/ONCOLOGICAL Hx Anemia: Yes - INTEGUMENTARY Hx Dermatological Problems: Yes Hx Cellulitis: Yes - MUSCULOSKELETAL/RHEUMATOLOGICAL Hx Musculoskeletal Disorders: Yes Hx Falls: Yes - GASTROINTESTINAL Hx Gastrointestinal Disorders: No - GENITOURINARY/GYNECOLOGICAL Hx Genitourinary Disorders: No - PSYCHIATRIC Hx Substance Use: No - SURGICAL HISTORY Hx Coronary Stent: Yes - ANESTHESIA Hx Anesthesia: Yes Meds Allergies/Adverse Reactions: Allergies Allergy/AdvReac Type Severity Reaction Status Date / Time No Known Allergies Allergy Verified 09/16/16 20:22 - Medications Medications: Current Medications Albuterol/Ipratropium (Duoneb 3 Mg/0.5 Mg (3 Ml) Ud) 3 ml INH RQ6 [facility] Last Admin: 12/06/16 14:17 Dose: 3 ml Aspirin (Aspirin Supp) 300 mg [place] DAILY [facility] Last Admin: 12/06/16 09:03 Dose: 300 mg Famotidine (Pepcid) 20 mg IVP DAILY [facility] Last Admin: 12/06/16 09:03 Dose: 20 mg Heparin Sodium/Sodium Chloride (Heparin 03191 Units/250ml 1/2 Normal Saline) 25 ,000 units in 250 mls @ 7.947 mls/hr IV .Q24H PRN; Protocol; 12 UNITS/KG/HR PRN Reason: PROTOCOL Last Admin: 12/06/16 17:55 Dose: 20 units/kg/hr, 13.245 mls/hr Propofol (Diprivan) 1,000 mg in 100 mls @ 2.01 mls/hr IV .Q24H PRN; Protocol; 5 MCG/KG/MIN PRN Reason: TITRATE PER MD ORDER Last Titration: 12/06/16 14:30 Dose: 0 mcg/kg/min, 0 mls/hr Daptomycin 360 mg/ Sodium (Chloride) 100 mls @ 100 mls/hr IV Q48H [facility] Stop: 12/09/16 18:01 Last Admin: 12/06/16 17:59 Dose: 100 mls/hr Cefepime HCl 1 gm/ Dextrose 50 mls @ 100 mls/hr IVPB Q24H [facility] Last Admin: 12/05/16 20:00 Dose: 100 mls/hr Tigecycline 50 mg/ Sodium (Chloride) 100 mls @ 100 mls/hr IVPB Q12H [facility] Last Admin: 12/06/16 17:20 Dose: 100 mls/hr Amiodarone HCl 900 mg/ (Dextrose) 500 mls @ 16.66 mls/hr IV .Q24H [facility]; 0.5 MG/ MIN PRN Reason: Protocol Stop: 12/07/16 11:46 Insulin Glargine (Lantus) 10 unit SC Q12H [facility] Last Admin: 12/06/16 17:45 Dose: 10 u Insulin Human Regular (Novolin R) 0 unit SC Q6 [facility] PRN Reason: Protocol Last Admin: 12/06/16 17:44 Dose: 10 unit Metoprolol Tartrate (Lopressor) 2.5 mg IVP Q8 [facility] Last Admin: 12/06/16 14:24 Dose: Not Given Nicotine (Nicoderm Cq) 1 patch TD DAILY [facility] Last Admin: 12/06/16 09:03 Dose: 1 patch Nitroglycerin (Nitro-Bid 2% Oint) 1 ea TOP Q6 [facility] Last Admin: 12/06/16 18:00 Dose: Not Given Physical Exam - Constitutional Appears: No Acute Distress, Chronically Ill - Head Exam Head Exam: ATRAUMATIC, NORMOCEPHALIC - ENT Exam Additional comments: orally intubated with concominant OGT - Respiratory Exam Respiratory Exam: Decreased Breath Sounds - Cardiovascular Exam Cardiovascular Exam: RRR, +S1, +S2 Additional comments: s/p cardioversion - GI/Abdominal Exam GI & Abdominal Exam: Diminished Bowel Sounds - Rectal Exam Rectal Exam: Deferred Results - Vital Signs Recent Vital Signs: Last Vital Signs Temp 97.7 F 12/06/16 16:05 Pulse 73 12/06/16 18:00 Resp 19 12/06/16 18:00 BP 86/42 L 07/27/17 17:21 Pulse Ox 97 12/06/16 18:00 - Labs Result Diagrams: 12/06/16 06:22 12/06/16 06:22 Labs: Laboratory Results - last 24 hr 12/05/16 12/06/16 12/06/16 23:20 05:24 05:47 WBC RBC Hgb Hct MCV MCH MCHC RDW Plt Count MPV Neut % (Auto) Lymph % (Auto) [place] % (Auto) Eos % (Auto) Baso % (Auto) Neut # Lymph # [place] # Eos # Baso # APTT Puncture Site R r pCO2 36 pO2 117 H HCO3 18.7 L ABG pH 7.30 L ABG Total CO2 18.8 L ABG O2 Saturation 99.2 H ABG Base Excess -8.0 L ABG Hemoglobin 9.3 L ABG Carboxyhemoglobin 1.9 H POC ABG HHb (Measured) 0.8 ABG Methemoglobin 1.1 Jose Test Pos A-a O2 Difference 551.0 Respiratory Index 4.7 Hgb O2 Saturation 96.3 Mechanical Rate 20 FiO2 100.0 Tidal Volume 500 PEEP 5 Sodium Potassium Chloride Carbon Dioxide Anion Gap BUN Creatinine Est GFR ( Amer) Est GFR (Non-Af Amer) POC Glucose (mg/dL) 425 H* 304 H Random Glucose Calcium Phosphorus Magnesium Total Bilirubin AST ALT Alkaline Phosphatase Total Protein Albumin Globulin Albumin/Globulin Ratio 12/06/16 12/06/16 12/06/16 06:22 06:22 06:22 WBC 2.2 L RBC 3.33 L Hgb 9.0 L Hct 27.7 L MCV 83.1 MCH 26.9 L MCHC 32.3 L RDW 26.4 H Plt Count 229 MPV 9.8 Neut % (Auto) 84.3 H Lymph % (Auto) 14.5 L [place] % (Auto) 0.4 Eos % (Auto) 0.4 Baso % (Auto) 0.4 Neut # 1.9 Lymph # 0.3 L [place] # 0.0 Eos # 0.0 Baso # 0.0 APTT 58 H Puncture Site pCO2 pO2 HCO3 ABG pH ABG Total CO2 ABG O2 Saturation ABG Base Excess ABG Hemoglobin ABG Carboxyhemoglobin POC ABG HHb (Measured) ABG Methemoglobin Jose Test A-a O2 Difference Respiratory Index Hgb O2 Saturation Mechanical Rate FiO2 Tidal Volume PEEP Sodium 143 Potassium 5.1 Chloride 106 Carbon Dioxide 17 L Anion Gap 25 H BUN 121 H* D Creatinine 2.8 H Est GFR ( Amer) 27 Est GFR (Non-Af Amer) 22 POC Glucose (mg/dL) Random Glucose 292 H Calcium 7.9 L Phosphorus 7.2 H Magnesium 2.9 H Total Bilirubin 0.7 AST 57 ALT 178 H Alkaline Phosphatase 151 H Total Protein 6.5 Albumin 2.7 L Globulin 3.8 Albumin/Globulin Ratio 0.7 L 12/06/16 12/06/16 11:19 17:36 WBC RBC Hgb Hct MCV MCH MCHC RDW Plt Count MPV Neut % (Auto) Lymph % (Auto) [place] % (Auto) Eos % (Auto) Baso % (Auto) Neut # Lymph # [place] # Eos # Baso # APTT Puncture Site pCO2 pO2 HCO3 ABG pH ABG Total CO2 ABG O2 Saturation ABG Base Excess ABG Hemoglobin ABG Carboxyhemoglobin POC ABG HHb (Measured) ABG Methemoglobin Jose Test A-a O2 Difference Respiratory Index Hgb O2 Saturation Mechanical Rate FiO2 Tidal Volume PEEP Sodium Potassium Chloride Carbon Dioxide Anion Gap BUN Creatinine Est GFR ( Amer) Est GFR (Non-Af Amer) POC Glucose (mg/dL) 277 H 372 H Random Glucose Calcium Phosphorus Magnesium Total Bilirubin AST ALT Alkaline Phosphatase Total Protein Albumin Globulin Albumin/Globulin Ratio Assessment & Plan (1) Acute respiratory failure Status: Acute (2) Sepsis Status: Acute (3) CHF (congestive heart failure) Status: Chronic (4) Infected ulcer of skin Status: Acute
[2016-12-06] MEDS ORDERED: Sodium Chloride 0.9% 250 ML IV ONE (21:36)
[2016-12-06] MEDS ORDERED: Sodium Chloride 0.9% 500 ML IV ONE (22:03)
[2016-12-06 22:31] LABS: ABG ALLEN TEST POS; ABG MECHANICAL RATE 20; ARTERIAL BLOOD GAS MODE PRVC; ARTERIAL BLOOD HGB O2 SAT 95.1 % (95.0-98.0); ATERIAL BLOOD GAS PEEP 5; CARBOXYHEMOGLOBIN 1.6 % (0.5-1.5); DRAW SITE LBA; HHB 1.9 % (0.0-5.0); METHEMOGLOBIN 1.4 % (0.0-3.0)
[2016-12-06] MEDS ORDERED: Sodium Chloride 0.9% 1,000 ML IV ONE (22:36)
[2016-12-06] MEDS ORDERED: Insulin Human Regular 100 UNIT in Sodium Chloride 0.9% 99 ML IV SCH (22:45)
[2016-12-06] MEDS ORDERED: Sodium Bicarbonate (8.4%) 50 Meq Syringe ONE (22:46)
[2016-12-06] MEDS ORDERED: Sodium Bicarbonate (8.4%) 50 Meq Syringe IVP ONE (22:48)
--- NOTE | 2016-12-06 22:59 | CP.PCM.PN ---
Subjective - Date & Time of Evaluation Date of Evaluation: 12/06/16 Time of Evaluation: 16:20 - Subjective Subjective: Patient seen and evaluated Intubated Events noted S/P SVT responded to Adenosine poor prognosis D/W daughter at bedside Objective - Vital Signs/Intake and Output Vital Signs (last 24 hours): Temp Pulse Resp BP Pulse Ox 97.7 F 69 21 92/39 L 96 12/06/16 16:05 12/06/16 20:00 12/06/16 20:00 12/06/16 20:00 12/06/16 20:00 Intake and Output: 12/06/16 12/07/16 18:59 06:59 Intake Total 1671.6 46.5 Output Total 230 10 Balance 1441.6 36.5 - Medications Medications: Current Medications Albuterol/Ipratropium (Duoneb 3 Mg/0.5 Mg (3 Ml) Ud) 3 ml INH RQ6 [facility] Last Admin: 12/06/16 19:55 Dose: 3 ml Aspirin (Aspirin Supp) 300 mg SC DAILY [facility] Last Admin: 12/06/16 09:03 Dose: 300 mg Famotidine (Pepcid) 20 mg IVP DAILY [facility] Last Admin: 12/06/16 09:03 Dose: 20 mg Heparin Sodium/Sodium Chloride (Heparin 89245 Units/250ml 1/2 Normal Saline) 25 ,000 units in 250 mls @ 7.947 mls/hr IV .Q24H PRN; Protocol; 12 UNITS/KG/HR PRN Reason: PROTOCOL Last Admin: 12/06/16 17:55 Dose: 20 units/kg/hr, 13.245 mls/hr Propofol (Diprivan) 1,000 mg in 100 mls @ 2.01 mls/hr IV .Q24H PRN; Protocol; 5 MCG/KG/MIN PRN Reason: TITRATE PER MD ORDER Last Titration: 12/06/16 14:30 Dose: 0 mcg/kg/min, 0 mls/hr Daptomycin 360 mg/ Sodium (Chloride) 100 mls @ 100 mls/hr IV Q48H [facility] Stop: 12/09/16 18:01 Last Admin: 12/06/16 17:59 Dose: 100 mls/hr Cefepime HCl 1 gm/ Dextrose 50 mls @ 100 mls/hr IVPB Q24H [facility] Last Admin: 12/06/16 19:25 Dose: 100 mls/hr Tigecycline 50 mg/ Sodium (Chloride) 100 mls @ 100 mls/hr IVPB Q12H [facility] Last Admin: 12/06/16 17:20 Dose: 100 mls/hr Amiodarone HCl 900 mg/ (Dextrose) 500 mls @ 16.66 mls/hr IV .Q24H [facility]; 0.5 MG/ MIN PRN Reason: Protocol Stop: 12/07/16 11:46 Last Admin: 12/06/16 20:00 Dose: 16.66 mls/hr Insulin Human Regular 100 unit (/ Sodium Chloride) 100 mls @ 7 mls/hr IV .[id number] [facility] PRN Reason: Protocol Sodium Chloride (Sodium Chloride 0.9%) 1,000 mls @ 1,000 mls/hr IV .Q1H [facility] Stop: 12/06/16 23:35 Last Admin: 12/06/16 22:40 Dose: 1,000 mls/hr Norepinephrine Bitartrate 4 mg (/ Sodium Chloride) 254 mls @ 19.05 mls/hr IV .[id number] PRN; Protocol; 5 MCG/MIN PRN Reason: TITRATE PER MD ORDER Insulin Glargine (Lantus) 10 unit SC Q12H [facility] Last Admin: 12/06/16 17:45 Dose: 10 u Metoprolol Tartrate (Lopressor) 2.5 mg IVP Q8 [facility] Last Admin: 12/06/16 22:00 Dose: Not Given Nicotine (Nicoderm Cq) 1 patch TD DAILY [facility] Last Admin: 12/06/16 09:03 Dose: 1 patch Nitroglycerin (Nitro-Bid 2% Oint) 1 ea TOP Q6 [facility] Last Admin: 12/06/16 18:00 Dose: Not Given - Labs Labs: 12/06/16 06:22 12/06/16 06:22 PT 13.7 SECONDS (9.7-12.2) H 12/01/16 02:35 INR 1.2 12/01/16 02:35 APTT 58 SECONDS (21-34) H 12/06/16 06:22
[2016-12-07 00:50] LABS: DRAW SITE L R
[2016-12-07] MEDS: Albuterol-Ipratrop 3 mg / 0.5 (3 ml) UD INH SCH ×2 (02:45→08:24)
--- NOTE | 2016-12-07 04:20 | CP.PCM.PN ---
Subjective - Date & Time of Evaluation Date of Evaluation: 12/06/16 Time of Evaluation: 19:15 - Subjective Subjective: Vented s/p cardioversion Objective - Vital Signs/Intake and Output Vital Signs (last 24 hours): Temp Pulse Resp BP Pulse Ox 98.1 F 130 H 26 H 93/49 L 89 L 12/07/16 00:00 12/07/16 03:15 12/07/16 03:15 12/07/16 03:15 12/07/16 03:15 Intake and Output: 12/06/16 12/07/16 18:59 06:59 Intake Total 1671.6 325.5 Output Total 230 10 Balance 1441.6 315.5 - Medications Medications: Current Medications Albuterol/Ipratropium (Duoneb 3 Mg/0.5 Mg (3 Ml) Ud) 3 ml INH RQ6 [facility] Last Admin: 12/07/16 02:45 Dose: Not Given Aspirin (Aspirin Supp) 300 mg [place] DAILY [facility] Last Admin: 12/06/16 09:03 Dose: 300 mg Famotidine (Pepcid) 20 mg IVP DAILY [facility] Last Admin: 12/06/16 09:03 Dose: 20 mg Heparin Sodium/Sodium Chloride (Heparin 70161 Units/250ml 1/2 Normal Saline) 25 ,000 units in 250 mls @ 7.947 mls/hr IV .Q24H PRN; Protocol; 12 UNITS/KG/HR PRN Reason: PROTOCOL Last Admin: 12/06/16 17:55 Dose: 20 units/kg/hr, 13.245 mls/hr Propofol (Diprivan) 1,000 mg in 100 mls @ 2.01 mls/hr IV .Q24H PRN; Protocol; 5 MCG/KG/MIN PRN Reason: TITRATE PER MD ORDER Last Titration: 12/06/16 14:30 Dose: 0 mcg/kg/min, 0 mls/hr Daptomycin 360 mg/ Sodium (Chloride) 100 mls @ 100 mls/hr IV Q48H [facility] Stop: 12/09/16 18:01 Last Admin: 12/06/16 17:59 Dose: 100 mls/hr Cefepime HCl 1 gm/ Dextrose 50 mls @ 100 mls/hr IVPB Q24H [facility] Last Admin: 12/06/16 19:25 Dose: 100 mls/hr Tigecycline 50 mg/ Sodium (Chloride) 100 mls @ 100 mls/hr IVPB Q12H [facility] Last Admin: 12/06/16 17:20 Dose: 100 mls/hr Amiodarone HCl 900 mg/ (Dextrose) 500 mls @ 16.66 mls/hr IV .Q24H [facility]; 0.5 MG/ MIN PRN Reason: Protocol Stop: 12/07/16 11:46 Last Admin: 12/06/16 20:00 Dose: 16.66 mls/hr Insulin Human Regular 100 unit (/ Sodium Chloride) 100 mls @ 7 mls/hr IV .[id number] [facility] PRN Reason: Protocol Last Titration: 12/07/16 04:06 Dose: 2 mls/hr, 2 mls/hr Sodium Bicarbonate 100 meq/ (Sodium Chloride) 1,100 mls @ 100 mls/hr IV .Q11H [facility] Last Admin: 12/06/16 23:30 Dose: 100 mls/hr Norepinephrine Bitartrate 8 mg (/ Sodium Chloride) 258 mls @ 9.67 mls/hr IV .Q24H PRN; Protocol; 5 MCG/MIN PRN Reason: TITRATE PER MD ORDER Insulin Glargine (Lantus) 10 unit SC Q12H [facility] Last Admin: 12/06/16 17:45 Dose: 10 u Metoprolol Tartrate (Lopressor) 2.5 mg IVP Q8 [facility] Last Admin: 12/06/16 22:00 Dose: Not Given Nicotine (Nicoderm Cq) 1 patch TD DAILY [facility] Last Admin: 12/06/16 09:03 Dose: 1 patch Nitroglycerin (Nitro-Bid 2% Oint) 1 ea TOP Q6 [facility] Last Admin: 12/07/16 00:00 Dose: Not Given - Labs Labs: 12/06/16 06:22 12/06/16 06:22 PT 13.7 SECONDS (9.7-12.2) H 12/01/16 02:35 INR 1.2 12/01/16 02:35 APTT 58 SECONDS (21-34) H 12/06/16 06:22 - Head Exam Head Exam: ATRAUMATIC - Eye Exam Eye Exam: Normal appearance - ENT Exam ENT Exam: Mucous Membranes Dry - Respiratory Exam Respiratory Exam: NORMAL BREATHING PATTERN - Cardiovascular Exam Cardiovascular Exam: +S1, +S2 - GI/Abdominal Exam GI & Abdominal Exam: Normal Bowel Sounds Assessment and Plan (1) Anemia Assessment & Plan: chronic disease, MDS H/H slightly improved Status: Acute (2) Coagulopathy Assessment & Plan: nutritional heparin drip Status: Acute (3) MDS (myelodysplastic syndrome) Assessment & Plan: outpatient decitabine Status: Acute
[2016-12-07 05:51] LABS: ABG MECHANICAL RATE 26; ARTERIAL BLOOD HGB O2 SAT 95.8 % (95.0-98.0); ATERIAL BLOOD GAS PEEP 5; CARBOXYHEMOGLOBIN 1.9 % (0.5-1.5); DRAW SITE L BRACH; HHB 1.3 % (0.0-5.0)
[2016-12-07] MEDS: Metoprolol 1 mg/ml Inj IVP SCH (06:00)
[2016-12-07] MEDS: (Lantus) Insulin Glargine, Recombinant SC SCH (06:00)
[2016-12-07] MEDS: Nitroglycerin 2% Ointment Foilpak UD TOP SCH ×2 (06:00)
[2016-12-07 06:22] LABS: BASO % 0.6 % (0.0-2.0); EOS % 2.6 % (0.0-4.0); HEMATOCRIT 26.1 % (35.0-51.0); LYMPH # 0.5 K/uL (1.0-4.3); LYMPH % 34.4 % (20.0-40.0); MEAN CELL VOLUME 84.6 fL (80.0-94.0); MEAN CORPUSCULAR HEMOGLOBIN 26.2 pg (27.0-31.0); MEAN PLATELET VOLUME 10.1 fL (7.2-11.7); MONO % 0.5 % (0.0-10.0); NRBC % 11.9 % (0.0-2.0); RED CELL DISTRIBUTION WIDTH 26.1 % (11.5-14.5)
[2016-12-07 06:26] LABS: WHITE BLOOD COUNT 1.4 K/uL (4.8-10.8)
[2016-12-07 06:27] LABS: ALB/GLOB RATIO 0.8 (1.0-2.1); BILIRUBIN,TOTAL 0.7 mg/dL (0.2-1.3); CALCIUM 6.5 mg/dl (8.6-10.4); MAGNESIUM 2.7 mg/dL (1.6-2.3); PHOSPHOROUS 7.1 mg/dL (2.5-4.5); POTASSIUM 4.6 mmol/L (3.6-5.2); TOTAL PROTEIN 4.5 g/dL (6.3-8.3)
[2016-12-07] MEDS ORDERED: Sodium Chloride 0.9% 1,000 ML IV ONE (06:40)
[2016-12-07] MEDS: Phenylephrine 30 MG in Sodium Chloride 0.9% 250 ML IV PRN ×2 (07:30→10:03)
--- NOTE | 2016-12-07 07:59 | RAD ---
PROCEDURE: CHEST RADIOGRAPH, 1 VIEW HISTORY: patient desaturating COMPARISON: 12/06/2016 FINDINGS: LUNGS: Endotracheal tube extending into the mid thoracic trachea. Prominent diffuse confluent bilateral airspace opacities throughout both lungs. Small bilateral pleural effusions. PLEURA: As above. CARDIOVASCULAR: Normal. OSSEOUS STRUCTURES: Degenerative changes in the spine and shoulders. VISUALIZED UPPER ABDOMEN: Normal. OTHER FINDINGS: None. IMPRESSION: Endotracheal tube extending into the mid thoracic trachea. Prominent diffuse confluent bilateral airspace opacities throughout both lungs. Small bilateral pleural effusions.
[2016-12-07 08:25] VITALS: TEMP 98
--- NOTE | 2016-12-07 09:12 | RAD ---
PROCEDURE: CHEST RADIOGRAPH, 1 VIEW HISTORY: vent COMPARISON: 12/06/2016 FINDINGS: LUNGS: Lines and tubes in stable position. Biapical pleural thickening with upper lobe granulomatous changes. Moderate to severe venous congestion. Prominent bibasilar airspace opacities with bilateral pleural effusions. PLEURA: As above. CARDIOVASCULAR: Normal. OSSEOUS STRUCTURES: No significant abnormalities. VISUALIZED UPPER ABDOMEN: Normal. OTHER FINDINGS: None. IMPRESSION: Lines and tubes in stable position. Biapical pleural thickening with upper lobe granulomatous changes. Moderate to severe venous congestion. Prominent bibasilar airspace opacities with bilateral pleural effusions.
--- NOTE | 2016-12-07 09:24 | CP.PCM.PN ---
<Cas Carrion S - Last Filed: 12/07/16 09:25> Subjective - Date & Time of Evaluation Date of Evaluation: 12/07/16 Time of Evaluation: 09:14 - Subjective Subjective: PGY2 progress note- cardiology- Dr. Apple Patient seen and examined at bedside. Pt is intubated and sedated. As per ICU team, yesterday pt became hemodynamically unstable, in Afib with rvr. He was nonresponsive to cardizem/amio; pt had synchronized cardioversion. He is in A- flutter this morning and hypotensive 70/40. Pt is currently on HCO3 gtt, amiodarone gtt and levo ggt. ICU team is considering starting terrell ggt to maintain adequate bp. Unable to complete ROS due to clinical condition. Objective - Vital Signs/Intake and Output Vital Signs (last 24 hours): Temp Pulse Resp BP Pulse Ox 98 F 135 H 21 77/46 L 91 L 12/07/16 08:00 12/07/16 08:47 12/07/16 08:47 12/07/16 08:47 12/07/16 08:47 Intake and Output: 12/07/16 12/07/16 06:59 18:59 Intake Total 4832.9 634.2 Output Total 160 35 Balance 4672.9 599.2 - Medications Medications: Current Medications Albuterol/Ipratropium (Duoneb 3 Mg/0.5 Mg (3 Ml) Ud) 3 ml INH RQ6 [facility] Last Admin: 12/07/16 08:24 Dose: Not Given Aspirin (Aspirin Supp) 300 mg [place] DAILY [facility] Last Admin: 12/06/16 09:03 Dose: 300 mg Famotidine (Pepcid) 20 mg IVP DAILY [facility] Last Admin: 12/06/16 09:03 Dose: 20 mg Heparin Sodium/Sodium Chloride (Heparin 73963 Units/250ml 1/2 Normal Saline) 25 ,000 units in 250 mls @ 7.947 mls/hr IV .Q24H PRN; Protocol; 12 UNITS/KG/HR PRN Reason: PROTOCOL Last Admin: 12/06/16 17:55 Dose: 20 units/kg/hr, 13.245 mls/hr Propofol (Diprivan) 1,000 mg in 100 mls @ 2.01 mls/hr IV .Q24H PRN; Protocol; 5 MCG/KG/MIN PRN Reason: TITRATE PER MD ORDER Last Titration: 12/06/16 14:30 Dose: 0 mcg/kg/min, 0 mls/hr Daptomycin 360 mg/ Sodium (Chloride) 100 mls @ 100 mls/hr IV Q48H [facility] Stop: 12/09/16 18:01 Last Admin: 12/06/16 17:59 Dose: 100 mls/hr Cefepime HCl 1 gm/ Dextrose 50 mls @ 100 mls/hr IVPB Q24H [facility] Last Admin: 12/06/16 19:25 Dose: 100 mls/hr Tigecycline 50 mg/ Sodium (Chloride) 100 mls @ 100 mls/hr IVPB Q12H [facility] Last Admin: 12/07/16 06:45 Dose: 100 mls/hr Amiodarone HCl 900 mg/ (Dextrose) 500 mls @ 16.66 mls/hr IV .Q24H [facility]; 0.5 MG/ MIN PRN Reason: Protocol Stop: 12/07/16 11:46 Last Admin: 12/06/16 20:00 Dose: 16.66 mls/hr Insulin Human Regular 100 unit (/ Sodium Chloride) 100 mls @ 7 mls/hr IV .[id number] [facility] PRN Reason: Protocol Last Titration: 12/07/16 09:08 Dose: 0 mls/hr, 0 mls/hr Sodium Bicarbonate 100 meq/ (Sodium Chloride) 1,100 mls @ 100 mls/hr IV .Q11H [facility] Last Admin: 12/06/16 23:30 Dose: 100 mls/hr Norepinephrine Bitartrate 8 mg (/ Sodium Chloride) 258 mls @ 9.67 mls/hr IV .Q24H PRN; Protocol; 5 MCG/MIN PRN Reason: TITRATE PER MD ORDER Last Titration: 12/07/16 07:45 Dose: 0 mcg/min, 0 mls/hr Phenylephrine HCl 30 mg/ (Sodium Chloride) 253 mls @ 10.12 mls/hr IV .Q24H PRN ; Protocol; 20 MCG/MIN PRN Reason: TITRATE PER MD ORDER Last Admin: 12/07/16 07:30 Dose: 180 mcg/min, 91.08 mls/hr Vasopressin 40 units/ Sodium (Chloride) 42 mls @ 0.63 mls/hr IV .Q24H [facility]; 0.01 UNITS/MIN PRN Reason: Protocol Insulin Glargine (Lantus) 10 unit SC Q12H [facility] Last Admin: 12/07/16 06:00 Dose: Not Given Metoprolol Tartrate (Lopressor) 2.5 mg IVP Q8 [facility] Last Admin: 12/07/16 06:00 Dose: Not Given Nicotine (Nicoderm Cq) 1 patch TD DAILY [facility] Last Admin: 12/06/16 09:03 Dose: 1 patch Nitroglycerin (Nitro-Bid 2% Oint) 1 ea TOP Q6 [facility] Last Admin: 12/07/16 06:00 Dose: Not Given - Labs Labs: 12/07/16 05:59 12/07/16 05:59 PT 13.7 SECONDS (9.7-12.2) H 12/01/16 02:35 INR 1.2 12/01/16 02:35 APTT 55 SECONDS (21-34) H 12/07/16 05:59 - Constitutional Appears: Other (intubated and sedated) - Head Exam Head Exam: ATRAUMATIC - Cardiovascular Exam Cardiovascular Exam: Tachycardia, REGULAR RHYTHM - GI/Abdominal Exam GI & Abdominal Exam: Soft - Extremities Exam Extremities Exam: absent: Pedal Edema Assessment and Plan - Assessment and Plan (Free Text) Assessment: 71 M PMHx of DM, CAD complicated by CA s/p stent, PVD, admitted for SOB, found to have acute NSTEMI complicated by cardiogenic shock; clinically declining Plan: Pt is not a candidate for cardiac cath at due to clinical condition- As per Dr. Snyder Labs/DI: -Echo 12/04 LV mildly dilated Mild concentric LVH EF 30-35% Moderate global hypokinesis LV diastolic function is normal R atrium appears mildly dilated Mild aortic regurgitation Mitral regurgitation is moderate Mild tricuspid regurgitation -Echo 12/03 LV systolic function is severely impaired EF 20-25% Mild aortic regurgitation Mitral regurgitation is mild Mild tricuspid regurgitation Borderline pulmonary htn No pulmonic valvular regurgitation -EKG 12/02 7:38: sinus tachycardia with PACs, L axis deviation, Anteroseptal infarct, ST and T wave abnormality, consider lateral ischemia -EKG 12/01 1:35: sinus tachycardia with PACs, L axis deviation, Incomplete RBBB, anteroseptal infarct, marked ST abnormality, possible lateral subendocardial injury -Elevated troponins 12/01 2:35 4.0900 12/01 6:36 3.1100 12/01 16:34 146.0000 12/01 18:08 129.0000 12/02 6:06 39.3000 12/03 4:56 13.5000 Medications: ASA 300mg pr daily Heparin gtt Amiodarone gtt Levophed ggt Lopressor 2.5mg ivp q8hrs Nitrobid 1 ea topical q6hrs Pt continues to clinically decline and has been hemodynamically unstable, requiring pressors. There is not intervention at this time. Pt's family continues to insist on full medical measures and resuscitation. Case discussed with Dr. Apple <Santy Apple - Last Filed: 01/06/17 17:39> Objective - Vital Signs/Intake and Output Vital Signs (last 24 hours): Temp Pulse Resp BP Pulse Ox 98 F 58 L 26 H 62/29 L 68 L 12/07/16 08:00 12/08/16 11:37 12/08/16 11:37 12/08/16 11:37 12/07/16 10:03 - Labs Labs: 12/07/16 05:59 12/07/16 05:59 PT 13.7 SECONDS (9.7-12.2) H 12/01/16 02:35 INR 1.2 12/01/16 02:35 APTT 55 SECONDS (21-34) H 12/07/16 05:59 Attending/Attestation - Attestation I have personally seen and examined this patient.: Yes I have fully participated in the care of the patient.: Yes I have reviewed all pertinent clinical information, including history, physical exam and plan: Yes Notes (Text): 01/06/17 17:39 guarded condition.
[2016-12-07 10:04] VITALS: BP 62/29; PULSE 58; RESP 26; O2SAT 68
--- NOTE | 2016-12-07 10:15 | CARD ---
APPROVED REPORT EKG Measurement Heart [id number] <Conclusion> Sinus tachycardia with premature atrial complexes Left axis deviation Anteroseptal infarct, age undetermined ST & T wave abnormality, consider lateral ischemia Abnormal ECG
--- NOTE | 2016-12-07 10:28 | PCM.RRTMUL ---
[facility] Nurses Assessment New IV Insertion Tolerance:: Fair - Ventilator Settings Mode:: PRVC Ventilator Respiratory Rate Setting:: 26 Ventilator Tidal Volume Setting:: 500 PEEP/CPAP (cm H2O):: 5 FIO2 (% Oxygen):: 100 - Vital Signs Blood Pressure:: 62/29 Pulse Rate:: 58 Respiratory Rate:: 26 I.Reason for [facility] - A) Acute Change in Patient: (Select all that apply): Acute change in heart rate less than 50 or greater than 120, Acute change in SBP below ([facility] ICU), Acute change in respiratory rate less than 8 or greater than 28, Acute change in SpO2 less Subjective: HOUSE RESIDENT NOTE [facility] called at 1005 AM for BED 3 in ICU [facility]. ACLS protocol initiated, high quality CPR initiated. Dr Lisa ICU running code. At 10:07 first epinephrine given. 2nd given at 10:10am. Pulse check at 1012 AM found brief pulse on doppler in right femoral. Pt quickly back PEA on monitor. High quality CPR resumed. Third epinephrine at 1013, remained PEA. Fourth epinephrine given at 10:16 AM. PEA, no pulse. Code stopped at 10:17 AM. Compressions ceased. Pronouncement of at 1017 AM. Plan - B. Assessment of Findings&Treatment Plan Pt in PEA. [facility] called. ACLS initiated. High quality compressions, epi given according to ACLS protocol. CODE called over at 1017 with no ROSC. Pt remained in PEA. Pronouncement of at 1017 AM EST.
--- NOTE | 2016-12-07 12:21 | CP.PCM.PRO ---
<Stephani Johnson - Last Filed: 12/07/16 12:20> Pronouncement of Note - Clinical Findings Physical Exam: No Response Verbal/Painful Stimuli, Absent Peripheral Pulses{ Carotid & Femoral}, Absent Heart & Breath Sounds, No Pupillary Light Reflex, No Corneal Reflex, Pupils Fixed & Dilated, Absence of Vital Signs - Pronouncement Time Time of Pronouncement of : 10:17 - Notifications Pronouncement Notifications: Family Notified, Atending Notified Category Development Manager Notified: No - Autopsy Autopsy Requested: No - [place] [id number] <Villa Ruiz - Last Filed: 12/07/16 18:32> Attending/Attestation - Attestation I have personally seen and examined this patient.: Yes I have fully participated in the care of the patient.: Yes I have reviewed all pertinent clinical information: Yes Notes (Text): 12/07/16 18:31 I pronounced this patient at 1017 am, family notified, attending notified.
--- NOTE | 2016-12-11 12:39 | CARD ---
APPROVED REPORT EKG Measurement Heart [id number] CO 128P [id number] <Conclusion> Sinus tachycardia Left axis deviation Right bundle branch block Septal infarct, age undetermined T wave abnormality, consider lateral ischemia Abnormal ECG
== END 2016-12-07 10:17 ==
LOC: C.ER 01:22 → C.9I 04:06 → EEVIPCON 04:06
PROVIDERS: ADMIT Internal Medicine Nephrology; ATTEND Internal Medicine Nephrology
PROC: 5A09457 Assistance with Respiratory Ventilation, 24-96 Consecutive Hours, Continuous Positive Airway Pressure (ICD-10-PCS; 2016-12-01)
PROC: 5A1945Z Respiratory Ventilation, 24-96 Consecutive Hours (ICD-10-PCS; principal; 2016-12-04)
PROC: 0BH17EZ Insertion of Endotracheal Airway into Trachea, Via Natural or Artificial Opening (ICD-10-PCS; 2016-12-04)
PROC: 5A2204Z Restoration of Cardiac Rhythm, Single (ICD-10-PCS; 2016-12-06)
DX: T80.219A Unspecified infection due to central venous catheter, initial encounter (principal); A41.02 Sepsis due to Methicillin resistant Staphylococcus aureus; I21.4 Non-ST elevation (NSTEMI) myocardial infarction; R57.0 Cardiogenic shock; J18.9 Pneumonia, unspecified organism; D61.818 Other pancytopenia; J96.01 Acute respiratory failure with hypoxia; J96.91 Respiratory failure, unspecified with hypoxia; D68.9 Coagulation defect, unspecified; R65.20 Severe sepsis without septic shock; E87.2 Acidosis; M86.9 Osteomyelitis, unspecified; L03.115 Cellulitis of right lower limb; J44.0 Chronic obstructive pulmonary disease with (acute) lower respiratory infection; I47.1 Supraventricular tachycardia; I48.92 Unspecified atrial flutter; E11.22 Type 2 diabetes mellitus with diabetic chronic kidney disease; E11.621 Type 2 diabetes mellitus with foot ulcer; I48.91 Unspecified atrial fibrillation; I12.9 Hypertensive chronic kidney disease with stage 1 through stage 4 chronic kidney disease, or unspecified chronic kidney disease; N18.9 Chronic kidney disease, unspecified; E78.00 Pure hypercholesterolemia, unspecified; Z95.5 Presence of coronary angioplasty implant and graft; F17.210 Nicotine dependence, cigarettes, uncomplicated; Z79.4 Long term (current) use of insulin; D46.9 Myelodysplastic syndrome, unspecified; L97.519 Non-pressure chronic ulcer of other part of right foot with unspecified severity; I70.209 Unspecified atherosclerosis of native arteries of extremities, unspecified extremity; E11.69 Type 2 diabetes mellitus with other specified complication; E11.628 Type 2 diabetes mellitus with other skin complications; I87.2 Venous insufficiency (chronic) (peripheral)